=== PATIENT | male | born 1955 | race Caucasian/White ===

== ENCOUNTER 2016-11-07 10:00 | Outpatient (RCR) | payer MEDICARE, OTHER ==
--- OUTSIDE RECORDS SUMMARY | 2016-08-12 10:09 | XMS REPORT | Continuity of Care Document ---
Author Author [facility] Organization [facility] Address Unknown Phone Unavailable Support Name Relationship Address Phone LUISA SYED DO Caregiver [address] [place] [address] MARIBEL GARY Caregiver [facility] [address] [place] [address] MALATHI TAPIA Next Of Kin [address] [place] [address] Insurance Providers Payer Name Policy Number Subscriber Name Relationship Wps Medicare [id number] Óscar Tapia Sr 18 Self / Same As Patient Comm Crossover Enter Ins Name [id number] Óscar Tapia Sr 18 Self / Same As Patient Advance Directives Directive Response Recorded Date/Time Advance Directives No 07/28/14 7:46am Health Care Power of Music Agent No 07/28/14 7:46am Organ Donor Yes 07/28/14 7:46am Resuscitation Status Full Code 07/28/14 7:46am Problems Medical Problems Problem Onset Date Status Bronchitis Unknown Active Medications Medication Dose Route Sig Days/Qty Instructions Order Date Discontinued Date Status Fluticasone Propionate 1 Puff IH DAILY 05/08/12 05/12/12 Discontinued Metformin HCl (Glucophage) 500 Mg PO TWICE A DAY WITH MEALS TAKE 1/2 OF (1,000MG) TAB 05/08/12 Active Fluoxetine Hcl 120 Mg PO DAILY 05/08/12 Active Omeprazole 20 Mg PO DAILY 05/08/12 Active Lisinopril/Hydrochlorothiazide 0.5 Tab PO DAILY 05/08/12 Active Fluticasone Propionate 1 Puff INH TWICE A DAY 05/08/12 05/12/12 Discontinued Budesonide/Formoterol Fumarate 2 Puff IH TWICE A DAY 05/12/12 Active Prednisone 20 Mg PO DIRECTED 20MG TWICE DAILY X2 DAYS, 05/12/1215/10 Discontinued Amoxicillin/Clavulanate Potassium 1 Tab PO TWICE A DAY 05/12/1215/10 Discontinued Tiotropium [place] 1 Inh IH DAILY 06/15/12 Active Temazepam 15 Mg PO BEDTIME PRN 06/15/12 12/10/12 Discontinued Clopidogrel Bisulfate 75 Mg PO DAILY 06/16/12 07/26/14 Discontinued Cilostazol 100 Mg PO TWICE A DAY 06/16/12 07/26/14 Discontinued Metoprolol Tartrate (Lopressor) 12.5 Mg PO TWICE A DAY TAKE 1/2 OF (25MG ) TAB 11/14/12 Active Azithromycin 250 Mg PO DAILY 6 Qty UNTIL GONE 12/10/12 10/07/13 Discontinued Cefuroxime Axetil (Ceftin) 1 Each PO TWICE A DAY 12 Qty 12/10/1210/07 Discontinued Simvastatin 40 Mg PO BEDTIME 10/07/13 Active Omeprazole 20 Mg PO DAILY 10/07/13 07/26/14 Discontinued Aspirin 81 Mg PO DAILY 10/07/13 Active Albuterol Sulfate 2 Puff IH EVERY 6 HOURS PRN SHORTNESS OF BREATH 10/08 Active Tiotropium [place] 2 [place] IH DIRECTED 1 Qty 10/07/13 07/26/14 Discontinued Levofloxacin 1 Each PO DAILY 10 Qty FOR INFECTION 10/07/13 07/26/14 Discontinued Benzonatate 1-2 Each PO Q 4 - 6 HR PRN 30 Qty 10/07/13 07/26/14 Discontinued Fluticasone Propionate 1 Sprays NSEACH TWICE A DAY 07/26/14 Active Potassium Gluconate 99 Mg PO DAILY 07/26/14 Active Docusate Sodium 1 Cap PO TWICE A DAY PRN CONSTIPATION 60 Qty 07/28/14 Active Hydrocodone Bit/Acetaminophen 1 Tab PO EVERY 4HRS PRN PAIN 30 Qty 07/28 Active Social History Social History Problem Response Recorded Date/Time Alcohol Use Denies Use 10/07/2013 6:05pm Recreational Drug Use No 10/07/2013 6:05pm Smoking Status Never a Smoker 07/28/2014 7:47am Query Response Start Date Stop Date Smoking Status Never a Smoker Hospital Discharge Instructions No hospital discharge instructions. Plan of Care No plan of care. Functional Status No functional status results. Allergies, Adverse Reactions, Alerts Allergen Type Severity Reaction Status Last Updated No Known Drug Allergies Active 10/07/13 Immunizations Name Given Type Date of Pneumonia Vaccine 07/28/12 Historical Date of Influenza Vaccine 07/27/12 Historical Vital Signs Acute Vital Signs Vital Response Date/Time Temperature (Fahrenheit) 98.2 degrees F (97.6 - 99.5) Temperature (Calculated Celsius) 36.81127 degrees C (36.4 - 37.5) Temperature Source Temporal Pulse Rate (adult) 79 bpm (60 - 90) Respiratory Rate 18 bpm (12 - 24) O2 Sat by Pulse Oximetry 91 % (88 - 100) Blood Pressure 145/87 mm Hg Pain Pain Intensity 3 Height (Feet) 5 feet Height (Inches) 6.00 inches Height (Calculated Centimeters) 167.515577 cm Weight (Pounds) 178 pounds Weight (Calculated Grams) 28509.443 gm Weight (Calculated Kilograms) 80.571461 kilograms Height 5 ft 6 in Weight 178 lb Body Mass Index 28.7 kg/m^2 Results Test Source Date Result Interp. Ref. Range Comments Activated Partial Thromboplast Time October 07, 2013 6:20pm 27 SEC N 24 -35 Alanine Aminotransferase (ALT/SGPT) October 07, 2013 6:20pm 67 U/L H 30 -65 Albumin October 07, 2013 6:20pm 3.2 G/DL L 3.4-5.0 Alkaline Phosphatase October 07, 2013 6:20pm 93 U/L N 50-136 Hiro Test May 11, 2014 12:30pm YES-POS - Alternaria tenuis Allergen May 11, 2014 11:55am <0.35 KU/L - ALTENARIA TENUI CLASS 0 Amylase Level December 06, 2012 7:54am 16 U/L L 25-115 Anti-Neutrophil Cytoplasmic Ab May 11, 2014 11:55am <1:20 - This test was developed and its performance characteristicsdetermined by [facility]. It has not been cleared or approved by the U.S. Food and Drug Administration. The FDA has determined that such clearance or approval is not necessary. This test is used for clinical puposes. It should not be regarded as investigational or for research. This laboratory is certified under the Clinical Laboratory Improvement Amendments of 1988 (CLIA) as qualified to perform high complexity clinical testing. 11/29/1999 Anti-Nuclear Antibody Screen May 11, 2014 11:55am <1:80 - IF EDIS SCREEN POSITIVE TITER AND PATTERN WILL FOLLOW.Index Value Interpretation <1:20 NORMAL RANGE FOR CHILDREN AGE 0 - 12 years <1:80 NORMAL RANGE FOR ADULTS AGE 13 - 150 years Arterial Blood Base Excess May 11, 2014 12:30pm 1.2 MMOL/L N -2.5-2.5 Arterial Blood HCO3 May 11, 2014 12:30pm 27 MMOL/L N 23-27 Arterial Blood Oxygen Saturation May 11, 2014 12:30pm 96 % N 94-100 Arterial Blood Partial Pressure CO2 May 11, 2014 12:30pm 44 MMHG N 35- 45 Arterial Blood Partial Pressure O2 May 11, 2014 12:30pm 77 MMHG L 79- 93 Arterial Blood Total CO2 May 11, 2014 12:30pm 28.2 MMOL/L N 21.0-31.0 Arterial Blood pH May 11, 2014 12:30pm 7.40 N 7.37-7.43 Aspartate Amino Transf (AST/SGOT) October 07, 2013 6:20pm 36 U/L N 15- 37 B-Type Natriuretic Peptide December 06, 2012 7:54am 12.0 PG/ML N 5.0- 100.0 BUN/Creatinine Ratio May 11, 2014 11:55am 28 - Band Neutrophils May 08, 2012 8:50pm 2 % - Basophils # (Auto) May 11, 2014 11:55am 0.1 10^3/uL N 0.0-0.1 Basophils % (Manual) May 08, 2012 8:50pm 0 % - Basophils (%) (Auto) May 11, 2014 11:55am 1 % N 0-10 [place] Grass Allergen (RAST) May 11, 2014 11:55am <0.35 KU/L - BERMUDA GRASS CLASS 0 Blood Gas Inspired Oxygen May 11, 2014 12:30pm ROOM AIR - Blood Gas Patient Temperature May 11, 2014 12:30pm 97.2 - Blood Gas Puncture Site May 11, 2014 12:30pm RT RAD - Blood Gas Ventilator Setting May 11, 2014 12:30pm NO - Blood Urea Nitrogen May 11, 2014 11:55am 22 MG/DL H 7-18 C-Reactive Protein May 11, 2012 5:27am 1.5 MG/DL H 0.2-0.9 Calcium Level May 11, 2014 11:55am 9.1 MG/DL N 8.5-10.1 Carbon Dioxide Level May 11, 2014 11:55am 28 MMOL/L N 21-32 Chloride Level May 11, 2014 11:55am 104 MMOL/L N 101-110 Cholesterol Level November 13, 2012 6:33am 93 MG/DL N -200 Common Ragweed (Short) Allergen May 11, 2014 11:55am <0.35 KU/L - RAGWEED COMMON CLASS 0 Creatine Kinase MB December 06, 2012 7:54am 7.6 NG/ML PH 0.0-3.6 RESULTS CALLED TO MARINA AT 0836. RESULTS READ BACK:YES. Creatinine May 11, 2014 11:55am 0.8 MG/DL N 0.6-1.3 D-Dimer December 06, 2012 7:54am 0.97 UG/ML H 0.00-0.49 Dermatophagoides farinae Allergen May 11, 2014 11:55am <0.35 KU/L - D. FARINAE CLASS 0 Dog Dander Allergen (RAST) May 11, 2014 11:55am <0.35 KU/L - DOG DANDER CLASS 0 [place] Tree Allergen (RAST) May 11, 2014 11:55am <0.35 KU/L - [place] TREE CLASS 0 Eosinophils # (Auto) May 11, 2014 11:55am 0.4 10^3/uL H 0.0-0.3 Eosinophils % (Manual) May 08, 2012 8:50pm 3 % - Eosinophils (%) (Auto) May 11, 2014 11:55am 6 % N 0-10 Erythrocyte Sedimentation Rate May 11, 2014 11:55am 3 MM/HR N 0-30 Glucose Level May 11, 2014 11:55am 118 MG/DL H 74-106 HDL Cholesterol November 13, 2012 6:33am 31 MG/DL L 35-60 Hematocrit May 11, 2014 11:55am 44 % N 40-54 Hemoglobin May 11, 2014 11:55am 15.3 G/DL N 13.3-17.7 Hemoglobin A1c May 10, 2012 6:40am 7.1 % H 4.5-6.2 Comments to Trap Setter: ADD TO BLOOD IN LAB ALREADY Immunoglobulin E May 11, 2014 11:55am 96.3 IU/ML - IGE INTERPRETATION GEOMETRIC MEAN +1 SD +2 SD 51-80 YEARS 12 IU/ML 48 IU/ML 197 IU/ML IT HAS BEEN REPORTED THAT 1% OF HEALTHY ADULTS AND 63% OF ALLERGIC ADULTS HAVE TOTAL CIRCULATING IGE LEVELS GREATER THAN 100 IU/ML AND THAT 65% OF HEALTHY ADULTS AND ONLY 2% OF ALLERGIC ADULTS HAVE TOTAL CIRCULATING IGE LEVELS BELOW 20 IU/ML. ALSO REPORTED IS THAT PATIENTS WITH IGE LEVELS GREATER THAN ONE STANDARD DEVIATION ABOVE THE GEOMETRIC MEAN HAVE A HIGH PROBABILITY OF ALLERGIC DISAESE AND IGE LEVELS GREATER THAN TWO STANDARD DEVIATIONS ABOVE THE GEOMETRIC MEAN ARE VIRTUALLY DIAGNOSTIC FOR ATOPY (CLIN REV ALLERGY 6: 93, 1988). Danny Grass Allergen (RAST) May 11, 2014 11:55am <0.35 KU/L - DANNY GRASS CLASS 0 [place] Blue (Zulema) Grass Allergen May 11, 2014 11:55am <0.35 KU/L - MONA BLUE GRASS CLASS 0 LDL Cholesterol November 13, 2012 6:33am 37 MG/DL N 0-129 Lipase December 06, 2012 7:54am 107 U/L N 73-393 Lymphocytes # (Auto) May 11, 2014 11:55am 2.5 X 10^3 N 1.0-4.0 Lymphocytes % (Manual) May 08, 2012 8:50pm 17 % - Lymphocytes (%) (Auto) May 11, 2014 11:55am 37 % N 12-44 Magnesium Level December 07, 2012 5:52am 1.5 MG/DL L 1.8-2.4 Asencio Elder (Rough) Allergen May 11, 2014 11:55am <0.35 KU/L - MARSHELDER CLASS 0 Mean Corpuscular Hemoglobin May 11, 2014 11:55am 30 PG N 25-34 Mean Corpuscular Hemoglobin Concent May 11, 2014 11:55am 35 G/DL N 32- 36 Mean Corpuscular Volume May 11, 2014 11:55am 86 FL N 80-99 Mean Platelet Volume May 11, 2014 11:55am 9.3 FL N 7.4-10.4 Monocytes # (Auto) May 11, 2014 11:55am 1.1 X 10^3 H 0.0-1.0 Monocytes % (Manual) May 08, 2012 8:50pm 6 % - Monocytes (%) (Auto) May 11, 2014 11:55am 16 % H 0-12 Myoglobin November 12, 2012 6:42pm 268 UG/L H 10-92 Neutrophils # (Auto) May 11, 2014 11:55am 2.8 X 10^3 N 1.8-7.8 Neutrophils % (Manual) May 08, 2012 8:50pm 72 % - Neutrophils (%) (Auto) May 11, 2014 11:55am 41 % L 42-75 Pecan Tree Allergen May 11, 2014 11:55am <0.35 KU/L - PECAN TREE CLASS 0 Platelet Count May 11, 2014 11:55am 150 10^3/uL N 130-400 Potassium Level May 11, 2014 11:55am 4.3 MMOL/L N 3.6-5.0 Prothromb Time International Ratio December 06, 2012 7:54am 1.1 N 0.8- 1.4 INTERPRETIVE DATASUGGESTED THERAPEUTIC RANGE FOR INR'S : VENOUS THROMBOSIS, PULMONARY EMBOLISM, OR PREVENTION OF SYSTEMIC EMBOLISM (EG. IN ATRIAL FIBRILLATION): 2.0 - 3.0 MECHANICAL PROSTHETIC HEART VALVES: 2.5 - 3.5* *NOTE: INR'S UP TO 4.5 MAY BE NECESSARY IN SELECTED GROUPS OF HIGH RISK PATIENTS. [employer] CONSENSUS CONFERENCE ON ANTITHROMBOTIC THERAPY (2000). Prothrombin Time October 07, 2013 6:20pm 13.4 SEC N 12.2-14.7 Red Blood Count May 11, 2014 11:55am 5.11 10^6/uL N 4.35-5.85 Red Cell Distribution Width May 11, 2014 11:55am 14.1 % N 10.0-14.5 Rheumatoid Factor May 11, 2014 11:55am NEGATIVE - Sodium Level May 11, 2014 11:55am 140 MMOL/L N 135-145 Total Bilirubin October 07, 2013 6:20pm 0.3 MG/DL N 0.0-1.0 Total Creatine Kinase May 08, 2012 8:50pm 216 U/L H 1-205 Total Protein October 07, 2013 6:20pm 7.1 G/DL N 6.4-8.2 Triglycerides Level November 13, 2012 6:33am 123 MG/DL N 30.0-150.0 Troponin I December 06, 2012 7:48pm < 0.10 NG/ML 0.00-0.10 Urine Bacteria May 08, 2012 8:40pm NEGATIVE - Has specimen been collected/obtained? YSpecimen Description CLEAN CATCH Urine Bilirubin May 08, 2012 8:40pm NEGATIVE - Has specimen been collected/obtained? YSpecimen Description CLEAN CATCH Urine Casts May 08, 2012 8:40pm NONE - Has specimen been collected/ obtained? YSpecimen Description CLEAN CATCH Urine Clarity May 08, 2012 8:40pm CLEAR - Has specimen been collected/obtained? YSpecimen Description CLEAN CATCH Urine Color May 08, 2012 8:40pm YELLOW - Has specimen been collected /obtained? YSpecimen Description CLEAN CATCH Urine Crystals May 08, 2012 8:40pm NONE - Has specimen been collected/obtained? YSpecimen Description CLEAN CATCH Urine Culture Indicated May 08, 2012 8:40pm NO - Has specimen been collected/obtained? YSpecimen Description CLEAN CATCH Urine Glucose (UA) May 08, 2012 8:40pm NEGATIVE - Has specimen been collected/obtained? YSpecimen Description CLEAN CATCH Urine Ketones May 08, 2012 8:40pm NEGATIVE - Has specimen been collected/obtained? YSpecimen Description CLEAN CATCH Urine Leukocyte Esterase May 08, 2012 8:40pm NEGATIVE - Has specimen been collected/obtained? YSpecimen Description CLEAN CATCH Urine Mucus May 08, 2012 8:40pm NEGATIVE - Has specimen been collected/obtained? YSpecimen Description CLEAN CATCH Urine Nitrite May 08, 2012 8:40pm NEGATIVE - Has specimen been collected/obtained? YSpecimen Description CLEAN CATCH Urine Protein May 08, 2012 8:40pm NEGATIVE - Has specimen been collected/obtained? YSpecimen Description CLEAN CATCH Urine RBC May 08, 2012 8:40pm NONE /HPF - Has specimen been collected/obtained? YSpecimen Description CLEAN CATCH Urine Specific [place] May 08, 2012 8:40pm 1.010 L - Has specimen been collected/obtained? YSpecimen Description CLEAN CATCH Urine Urobilinogen May 08, 2012 8:40pm NORMAL MG/DL - Has specimen been collected/obtained? YSpecimen Description CLEAN CATCH Urine WBC May 08, 2012 8:40pm RARE /HPF - Has specimen been collected/obtained? YSpecimen Description CLEAN CATCH Urine pH May 08, 2012 8:40pm 6.0 - Has specimen been collected/ obtained? YSpecimen Description CLEAN CATCH VLDL Cholesterol November 13, 2012 6:33am 25 MG/DL N 5-40 White Blood Count May 11, 2014 11:55am 6.8 10^3/uL N 4.3-11.0 [place] Allergen May 11, 2014 11:55am <0.35 KU/L - [place] WHITE CLASS 0 Pro-B-Type Natriuretic Peptide May 11, 2014 11:55am 30.7 PG/ML N -125 Glucometer December 10, 2012 10:58am 179 MG/DL H 70-110 Lab Scanned Report December 06, 2012 9:30am LAB Reports [id number] - Estimat Glomerular Filtration Rate May 11, 2014 11:55am > 60 - GFR INTERPRETIVE DATA UNITS FOR ESTIMATED GFR (eGFR): mL/min/1.73 M2 REFERENCE RANGE FOR ESTIMATED GFR (eGFR) eGFR NORMAL eGFR >60 MODERATELY DECREASED eGFR 30-59 SEVERLY DECREASED eGFR 15-29 KIDNEY FAILURE <15 (OR DIALYSIS) Cladosporium herbarum Allergen May 11, 2014 11:55am <0.35 KU/L - CLADOSPORIM MLD CLASS 0NOTE: THE SPECIFIC IGE RESULTS FROM THESE PANELS, PARTICULARLY THE GENERAL [place] SCREEN, ARE DESIGNED TO ASSIST IN THE DIFFERENTIAL DIAGNOSIS OF PATIENTS WITH OVERLAPPING UPPER RESPIRATORY DISEASE (URD) SYMPTOMS TO THE PRESENCE OR ABSENCE OF ATOPIC DISEASE. [facility] Immunocap Allergen-Specific Allergy Interpretation Class IgE Index Value kU/L Interpretation ----- 0 <0.35 Negative 1 0.35 - 0.70 Low positive 2 0.71 - 3.49 Moderate positive 3 3.50 - 17.49 High positive 4 17.50 - 49.99 Very high positive 5 50.00 - 99.99 Very high positive 6 >100.00 Very high positive The test method is the [employer] Immunocap Allergen-Specific IgE System. Testing performed at: [facility], [address] [place], [place] 11/27/2002 Blood Morphology Comment May 08, 2012 8:50pm NORMAL - Creatine Kinase December 06, 2012 7:48pm 286 U/L H 1-205 Cardiac Panel Pathologist Review December 06, 2012 7:54am SEE CARDIAC PATH REV - Urine RBC (Auto) May 08, 2012 8:40pm NEGATIVE - Has specimen been collected/obtained? YSpecimen Description CLEAN CATCH Cat Dander Allergen May 11, 2014 11:55am <0.35 KU/L - CAT DANDER CLASS 0 INR Comment October 07, 2013 6:20pm 1.0 N 0.8-1.4 INTERPRETIVE DATASUGGESTED THERAPEUTIC RANGE FOR INR'S: VENOUS THROMBOSIS, PULMONARY EMBOLISM, OR PREVENTION OF SYSTEMIC EMBOLISM (EG. IN ATRIAL FIBRILLATION): 2.0 - 3.0 MECHANICAL PROSTHETIC HEART VALVES: 2.5 - 3.5* *NOTE: INR'S UP TO 4.5 MAY BE NECESSARY IN SELECTED GROUPS OF HIGH RISK PATIENTS. [employer] CONSENSUS CONFERENCE ON ANTITHROMBOTIC THERAPY (2000). Blood Culture Peripheral-Lt Ac December 06, 2012 9:25am No growth Influenza Types A,B Antigen (VICENTE) Nasopharynx October 07, 2013 6:56pm Procedures Procedure Status Date Provider(s) Laparoscopic cholecystectomy completed 07/28/14 LUISA SYED DO Laparoscopic repair of ventral hernia completed 07/28/14 LUISA SYED DO Tracing only of electrocardiogram completed 07/26/14 YASEMIN ALLAN ADAPTIVE PHYSICAL EDUCATOR Encounters Encounter Location Date/Time Registered Clinic Via [facility] 07/26/14 7:28am Registered Clinic [facility] 07/12/14 8:18am Registered Clinic [facility] 07/06/14 7:55pm
[~2016-11-07 10:00] MED LIST: AGM875T PO; ALBU2.5V4 IH; ALLO300T2 PO; APIX5TAB PO; ASP81CT PO; ATOR40TA PO; ATOR40TA70 PO; AZIT500T PO; BENZ100C18 PO; BUDE10.2 IH; BUDE6HFA IH; CEFD300C3 PO; CEFU500T5 PO; CLOP75TA PO; CYCL5TAB PO; DCS100C PO; DICL100G18 TP; DULA0.75 SQ; FENO145T2 PO; FLT05NA16 NSEACH; FLT4413 INH; FLUO20CA25 PO; FLUO60TA PO; FLUT16SP22 NS; FLUT1BLS IH; FLUT50DI IH; GABA-488 PO; GLIM4TAB PO; HYDR-3454 PO; INDO25CA PO; LEVO500T69 PO; LEVO750T39 PO; LEVO750T9 PO; LISI1TAB PO; LISI1TAB6 PO; MAGN400T6 PO; METF-380 PO; METF1000 PO; METO-270 PO; METO25TA2 PO; MONT10TA24 PO; NF-PLET100 PO; OMEP-10 PO; OMEP20CA12 PO; OMEP20TA2 PO; OMG1KC PO; POTA99TA15 PO; POTA99TA21 PO; PRD20T PO; ROSU10TA PO; RT-ALBUINH IH; SIMV40TA4 PO; TEMA15CA54 PO; TIOT18CA IH; TRAM50TA2 PO; UMEC62.5 IH
== END 2016-11-10 | disposition home or self-care (01) ==
LOC: PULM 10:00
PROVIDERS: ATTEND Nurse Practitioner Family
DX: R06.02 Shortness of breath (principal); J84.9 Interstitial pulmonary disease, unspecified; R91.1 Solitary pulmonary nodule; G47.33 Obstructive sleep apnea (adult) (pediatric)
CPT/HCPCS: 99211

== ENCOUNTER 2016-12-05 10:00 | Outpatient (RCR) | payer MEDICARE, OTHER ==
--- OUTSIDE RECORDS SUMMARY | 2016-11-14 10:35 | XMS REPORT | Continuity of Care Document ---
Author Author [facility] Organization [facility] Address Unknown Phone Unavailable Support Name Relationship Address Phone LUISA SYED DO Caregiver [address] [place] [address] MARIBEL GARY Caregiver [facility] [address] [place] [address] MALATHI TAPIA Next Of Kin [address] [place] [address] Insurance Providers Payer Name Policy Number Subscriber Name Relationship Wps Medicare [id number] Óscar Tapia Sr 18 Self / Same As Patient Comm Crossover Enter Ins Name [id number] Óscar Tapia Sr 18 Self / Same As Patient Advance Directives Directive Response Recorded Date/Time Advance Directives No 07/28/14 7:46am Health Care Power of Skin Specialist No 07/28/14 7:46am Organ Donor Yes 07/28/14 [...] PO TWICE A DAY 05/12/1215/10 Discontinued Tiotropium [place] 1 Inh IH DAILY 06/15/12 Active Temazepam [...] PRN SHORTNESS OF BREATH 10/08 Active Tiotropium [place] 2 [place] IH DIRECTED 1 Qty 10/07/13 07/26/14 Discontinued [...] F (97.6 - 99.5) Temperature (Calculated Celsius) 36.88911 degrees C (36.4 - 37.5) Temperature Source Temporal Pulse Rate (adult) 79 bpm (60 - 90) Respiratory Rate 18 bpm (12 - 24) O2 Sat by Pulse Oximetry 91 % (88 - 100) Blood Pressure 145/87 mm Hg Pain Pain Intensity 3 Height (Feet) 5 feet Height (Inches) 6.00 inches Height (Calculated Centimeters) 167.701571 cm Weight (Pounds) 178 pounds Weight (Calculated Grams) 38613.443 gm Weight (Calculated Kilograms) 80.115150 kilograms Height 5 ft 6 in Weight [...] 07, 2013 6:20pm 93 U/L N 50-136 Hior Test May 11, 2014 12:30pm YES-POS - Alternaria tenuis Allergen May 11, 2014 11:55am <0.35 KU/L - ALTENARIA TENUI CLASS 0 Amylase Level December 06, 2012 7:54am 16 U/L L 25-115 Anti-Neutrophil Cytoplasmic Ab May 11, 2014 11:55am <1:20 - This test was developed and its performance characteristicsdetermined by [facility]. It has not been cleared or approved [...] 6:40am 7.1 % H 4.5-6.2 Comments to Feed Research Aide: ADD TO BLOOD IN LAB ALREADY Immunoglobulin [...] SELECTED GROUPS OF HIGH RISK PATIENTS. [employer] CONSENSUS CONFERENCE ON [...] collected/obtained? YSpecimen Description CLEAN CATCH Urine Specific [place] May 08, 2012 8:40pm 1.010 L - [...] 11, 2014 11:55am 6.8 10^3/uL N 4.3-11.0 [place] Tree Allergen May 11, 2014 11:55am <0.35 KU/L - [place] WHITE CLASS 0 Pro-B-Type Natriuretic Peptide May 11, 2014 11:55am 30.7 PG/ML N -125 Glucometer December 10, 2012 10:58am 179 MG/DL H 70-110 Lab Scanned Report December 06, 2012 9:30am LAB Reports [id number] - Estimat Glomerular Filtration Rate May 11, [...] THE PRESENCE OR ABSENCE OF ATOPIC DISEASE. [facility] Immunocap Allergen-Specific Allergy Interpretation Class IgE Index Value kU/L Interpretation ----- 0 <0.35 Negative 1 0.35 - 0.70 Low positive 2 0.71 - 3.49 Moderate positive 3 3.50 - 17.49 High positive 4 17.50 - 49.99 Very high positive 5 50.00 - 99.99 Very high positive 6 >100.00 Very high positive The test method is the [email or web address] Immunocap Allergen-Specific IgE System. Testing performed at: [facility], [address] [place], [place] 11/27/2002 Blood Morphology Comment May 08, [...] SELECTED GROUPS OF HIGH RISK PATIENTS. [employer] CONSENSUS CONFERENCE ON ANTITHROMBOTIC THERAPY (2000). Blood Culture Peripheral-Lt Ac December 06, 2012 9:25am No growth Influenza Types A,B Antigen (VICENTE) Nasopharynx October 07, 2013 6:56pm Procedures Procedure Status Date Provider(s) Laparoscopic cholecystectomy completed 07/28/14 LUISA SYED DO Laparoscopic repair of ventral hernia completed 07/28/14 LUISA SYED DO Tracing only of electrocardiogram completed 07/26/14 YASEMIN ALLAN INSPECTOR FILTER TIP Encounters Encounter Location Date/Time Registered Clinic [facility] 07/26/14 7:28am Registered Clinic [facility] 07/12/14 8:18am Registered Clinic [facility] 07/06/14 7:55pm
== END 2017-02-12 | disposition home or self-care (01) ==
LOC: PULM 10:00
PROVIDERS: ATTEND Nurse Practitioner Family
DX: R06.02 Shortness of breath (principal); J84.9 Interstitial pulmonary disease, unspecified; R91.1 Solitary pulmonary nodule; G47.33 Obstructive sleep apnea (adult) (pediatric)

== ENCOUNTER 2017-03-09 12:57 | Inpatient (IN) | payer MEDICARE ==
[~2017-03-09] VITALS: Ht 167.6 cm; Wt 79.9 kg
--- NOTE | 2017-03-09 13:29 | ED Chest Pain ---
General Chief Complaint: Chest Pain Stated Complaint: SOB/CHEST HEAVINESS/COUGH Source: patient Exam Limitations: no limitations History of Present Illness Time seen by provider: 13:27 Initial Comments To ER with chest heaviness and a cough. The cough is productive in nature and started about 7 days ago. On the second day of this illness he saw [facility] in [place] and got a prescription for antibiotic (doxycycline) and steroid. He reports that he felt a little bit better for one day and then seemed to get worse again. A little bit more short of breath than usual though he is always slightly short of breath from COPD. He does not wear oxygen at home. Starting 3 days ago he's had heaviness in the center of his chest that is been constant and present at all times. He also has atrial fibrillation and is on Eliquis Timing/Duration: constant Severity/Quality: moderate Radiation: no radiation ASA po [employer]: No NTG SL [employer]: No Allergies and Home Medications Allergies Coded Allergies: atorvastatin (Verified Allergy, Mild, 01/12/16) Patient states that his bones ached and he wasn't able to tolerate it. Home Medications Albuterol Sulfate 2.5 Mg/3 Ml Vial.neb, 2.5 MG IH Q4H PRN for SHORTNESS OF BREATH, (Reported) Allopurinol 300 Mg Tablet, 300 MG PO BID, (Reported) Apixaban 5 Mg Tablet, 5 MG PO BID, (Reported) Aspirin 81 Mg Chew, 81 MG PO HS, (Reported) Budesonide/Formoterol Fumarate 10.2 Gm Hfa.aer.ad, 2 PUFF IH DAILY, (Reported) Diclofenac Sodium 100 Gm Gel..gram., TP QID PRN for PAIN, (Reported) Dulaglutide 0.75 Mg/0.5 Ml Pen.injctr, 0.75 MG SQ Tu, (Reported) Fenofibrate Nanocrystallized 145 Mg Tablet, 145 MG PO HS, (Reported) Fluoxetine HCl 20 Mg Capsule, 40 MG PO DAILY, (Reported) TAKES 2 (20MG) CAPSULES Fluticasone Propionate 16 Gm [place].susp, 1 SPRAY NS BID PRN for CONGESTION, ( Reported) Gabapentin 300 Mg Capsule, 300 MG PO HS, (Reported) Glimepiride 4 Mg Tablet, 4 MG PO DAILY, (Reported) Lisinopril/Hydrochlorothiazide 1 Each Tablet, 1 TAB PO HS, (Reported) Metformin HCl 1,000 Mg Tablet, 1,000 MG PO BID, (Reported) Metoprolol Succinate 25 Mg Tab.er.24h, 25 MG PO HS, (Reported) Montelukast Sodium 10 Mg Tablet, 10 MG PO HS, (Reported) [place] 3 Polyunsat Fatty Acids 1,000 Mg Cap, 1,000 MG PO BID, (Reported) Omeprazole 20 Mg Capsule.dr, 20 MG PO DAILY, (Reported) Potassium Gluconate 99 Mg Tablet, 99 MG PO DAILY, (Reported) Rosuvastatin Calcium 10 Mg Tablet, 10 MG PO HS, (Reported) Umeclidinium [place] 62.5 Mcg Blst.w.dev, 1 PUFF IH HS, (Reported) Review of Systems Constitutional: see HPI, No chills, No fever, malaise, weakness EENTM: See HPI Respiratory: See HPI, Cough Cardiovascular: See HPI, Chest Pain Gastrointestinal: No Symptoms Reported Genitourinary: No Symptoms Reported Musculoskeletal: no symptoms reported Skin: no symptoms reported Psychiatric/Neurological: No Symptoms Reported Endocrine: No Symptoms Reported Hematologic/Lymphatic: No Symptoms Reported Past Vzklbzh-Mwzceb-Jopnqk Hx Patient Social History 2nd Hand Smoke Exposure: Yes Recent Foreign Travel: No Contact w/Someone Who Travel: No Immunizations Up To Date Tetanus Booster (TDap): Unknown PED Vaccines UTD: No Date of Pneumonia Vaccine: Jul 28, 2012 Date of Influenza Vaccine: Jul 30, 2016 Seasonal Allergies Seasonal Allergies: No Surgeries HX Surgeries: Yes Surgeries: Abdominal, Appendectomy, Cardiac, Coronary Stent, Eye Surgery, Renal Respiratory Hx Respiratory Disorders: Yes ("pigeon's disease") Respiratory Disorders: Sleep Apnea Cardiovascular Hx Cardiac Disorders: Yes Cardiac Disorders: Coronary Artery Disease, High Cholesterol, Hypertension Neurological Hx Neurological Disorders: No Reproductive System Hx Reproductive Disorders: No Sexually Transmitted Disease: No HIV/AIDS: No Genitourinary Hx Genitourinary Disorders: No Genitourinary Disorders: Kidney Stones Gastrointestinal Hx Gastrointestinal Disorders: Yes Gastrointestinal Disorders: Gastroesophageal Reflux, Polyps Musculoskeletal Hx Musculoskeletal Disorders: Yes Musculoskeletal Disorders: Degenerate Disk Disease, Arthritis, Chronic Back Pain, Gout Endocrine Hx Endocrine Disorders: Yes Endocrine Disorders: Diabetes, Non-Insulin dep HEENT HX ENT Disorders: No Loss of Vision: Denies Cancer Hx Cancer: No Psychosocial Hx Psychiatric Problems: Yes Behavioral Health Disorders: Anxiety, Depression Integumentary HX Skin/Integumentary Disorder: No Blood Transfusions Hx Blood Disorders: No Adverse Reaction to a Blood Tr: No Family Medical History Significant Family History: Lung Disease Family Medial History: Arthritis 19 FATHER Respiratory disorder 19 FATHER 19 MOTHER Thyroid disease 19 MOTHER No Family History of: AIDS Abdominal aortic aneurysm Alcoholism Alzheimer's disease Asthma Cardiovascular disease Dementia Diabetes mellitus Drug abuse Hypertension Kidney disease Myocardial infarction Parkinson's disease Psychosocial problem Seizure disorder Physical Exam Vital Signs Vital Sign - Last 12Hours 03/09/17 03/09/17 13:25 13:26 Temp 100.6 Pulse 110 Resp 18 B/P (MAP) 129/92 Pulse Ox 95 O2 Delivery Room Air Capillary Refill : Less Than 3 Seconds General Appearance: No Apparent Distress, WD/WN HEENT: PERRL/EOMI, TMs Normal Neck: Full Range of Motion, Normal Inspection Respiratory: Lungs Clear, Normal Breath Sounds, No Accessory Muscle Use, No Respiratory Distress Cardiovascular: Normal Peripheral Pulses, Tachycardia Gastrointestinal: Non Tender, Soft Extremity: Normal Capillary Refill, Normal Inspection Neurologic/Psychiatric: Alert, Oriented x3, No Motor/Sensory Deficits Skin: Normal Color, Warm/Dry Focused Exam Lactic Acid Level Laboratory Tests Test 03/09/17 13:20 Lactic Acid Level 1.77 MMOL/L (0.50-2.00) Progress/Results/Core Measures Results/Orders Lab Results Laboratory Tests Test 03/09/17 13:20 03/09/17 14:04 Range/Units White Blood Count 17.0 H 4.3-11.0 10^3/uL Red Blood Count 4.61 4.35-5.85 10^6/uL Hemoglobin 13.7 13.3-17.7 G/DL Hematocrit 42 40-54 % Mean Corpuscular Volume 91 80-99 FL Mean Corpuscular Hemoglobin 30 25-34 PG Mean Corpuscular Hemoglobin Concent 33 32-36 G/DL Red Cell Distribution Width 14.0 10.0-14.5 % Platelet Count 301 130-400 10^3/uL Mean Platelet Volume 9.7 7.4-10.4 FL Neutrophils (%) (Auto) 79 H 42-75 % Lymphocytes (%) (Auto) 12 12-44 % Monocytes (%) (Auto) 7 0-12 % Eosinophils (%) (Auto) 2 0-10 % Basophils (%) (Auto) 1 0-10 % Neutrophils # (Auto) 13.5 H 1.8-7.8 X 10^3 Lymphocytes # (Auto) 2.0 1.0-4.0 X 10^3 Monocytes # (Auto) 1.2 H 0.0-1.0 X 10^3 Eosinophils # (Auto) 0.3 0.0-0.3 10^3/uL Basophils # (Auto) 0.1 0.0-0.1 10^3/uL Neutrophils % (Manual) 78 % Lymphocytes % (Manual) 13 % Monocytes % (Manual) 9 % Eosinophils % (Manual) 0 % Basophils % (Manual) 0 % Band Neutrophils 0 % Blood Morphology Comment NORMAL Prothrombin Time 17.1 H 12.2-14.7 SEC INR Comment 1.4 0.8-1.4 Activated Partial Thromboplast Time 35 24-35 SEC Lactic Acid Level 1.77 0.50-2.00 MMOL/L B-Type Natriuretic Peptide < 10.0 <100.0 PG/ML Sodium Level 135 135-145 MMOL/L Potassium Level 3.4 L 3.6-5.0 MMOL/L Chloride Level 101 98-107 MMOL/L Carbon Dioxide Level 22 21-32 MMOL/L Anion Gap 12 5-14 MMOL/L Blood Urea Nitrogen 19 H 7-18 MG/DL Creatinine 0.68 0.60-1.30 MG/DL Estimat Glomerular Filtration Rate > 60 BUN/Creatinine Ratio 28 Glucose Level 144 H 70-105 MG/DL Calcium Level 9.8 8.5-10.1 MG/DL Magnesium Level 1.3 L 1.8-2.4 MG/DL Total Bilirubin 0.5 0.1-1.0 MG/DL Aspartate Amino Transf (AST/SGOT) 22 5-34 U/L Alanine Aminotransferase (ALT/SGPT) 35 0-55 U/L Alkaline Phosphatase 55 40-136 U/L Myoglobin 329.3 H 10.0-92.0 NG/ML Troponin I < 0.30 <0.30 NG/ML Total Protein 6.9 6.4-8.2 G/DL Albumin 3.6 3.2-4.5 G/DL My Orders Orders - AMELIE WEEKS APRN Cbc With Automated Diff (03/09/17 13:17) Magnesium (03/09/17 13:17) Ekg Tracing (03/09/17 13:17) Cardiac Profile 1 (03/09/17 13:17) Comprehensive Metabolic Panel (03/09/17 13:17) Myoglobin Serum (03/09/17 13:17) Protime With Inr (03/09/17 13:17) Partial Thromboplastin Time (03/09/17 13:17) O2 (03/09/17 13:17) Monitor-Rhythm Ecg Trace Only (03/09/17 13:17) Lipid Panel (03/10/17 06:00) Aspirin Chewable Tablet (Baby Aspirin Ch (03/09/17 13:30) Saline Lock/Iv-Start (03/09/17 13:17) BNP (03/09/17 13:17) Chest Pa/Lat (2 View) (03/09/17 13:30) Metoprolol Tartrate (Ir) Tab (Lopressor (03/09/17 13:30) Manual Differential (03/09/17 13:20) Blood Culture (03/09/17 13:42) Lactic Acid Analyzer (03/09/17 13:42) Piperacillin Sodium/Tazobactam (Zosyn Vi (03/09/17 13:45) Ct Chest W (03/09/17 13:54) Iohexol Injection (Omnipaque 350 Mg/Ml 1 (03/09/17 15:00) Ns (Ivpb) (Sodium Chloride 0.9% Ivpb Bag (03/09/17 15:00) Medications Given in ED Current Medications Medications Dose Ordered Sig/Shabana Route Start Time Stop Time Status Last Admin Dose Admin Aspirin 324 mg ONCE ONCE PO 03/09/17 13:30 03/09/17 13:31 DC 03/09/17 13:34 324 MG Iohexol 100 ml ONCE ONCE IV 03/09/17 15:00 03/09/17 15:01 DC 03/09/17 15:01 75 ML Metoprolol Tartrate 25 mg ONCE ONCE PO 03/09/17 13:30 03/09/17 13:31 DC 03/09/17 13:34 25 MG Piperacillin Sod/ Tazobactam Sod 4.5 gm/Sodium Chloride 100 ml @ 200 mls/hr ONCE ONCE IV 03/09/17 13:45 03/09/17 14:15 DC 03/09/17 14:32 200 MLS/HR Sodium Chloride 100 ml ONCE ONCE IV 03/09/17 15:00 03/09/17 15:01 DC 03/09/17 15:01 80 ML Vital Signs/I&O Vital Sign - Last 12Hours 03/09/17 03/09/17 03/09/17 03/09/17 13:25 13:26 13:26 13:34 Temp 100.6 100.6 Pulse 110 Resp 18 B/P (MAP) 129/92 Pulse Ox 95 95 O2 Delivery Room Air Room Air Room Air 03/09/17 15:14 Temp 98.6 Pulse 86 Resp 16 B/P (MAP) 124/74 Pulse Ox 91 O2 Delivery Room Air Diagnostic Imaging Diagonstic Imaging: Xray Plain Films/CT/US/NM/MRI: chest Comments NAME: [facility] REC#: [id number] PT STATUS: REG ER : 1955 PHYSICIAN: AMELIE WEEKS APRN ADMIT DATE: 03/09/17/ER Signed Date of Exam:03/09/17 CHEST PA/LAT (2 VIEW) Indication: Chest pain PA and lateral chest Comparison study from 02/09/2016 There are central interstitial fibrosis in both lungs appear similar to the prior exam. There are no consolidating alveolar infiltrates. There are no effusions or pneumothoraces. Heart size and pulmonary vascularity are normal. Impression: Scarring in the lungs. No acute abnormalities or changes since 02/09/2016. Dictated by: Dictated on workstation # [id number] Dict: 03/09/17 1347 Trans: 03/09/17 1348 [id number] Interpreted by: THEODORE DALEY Electronically signed by: THEODORE DALEY 03/09/17 1348 Departure Impression Impression: Primary Impression: Pneumonia Disposition: ADMITTED INPATIENT Condition: Stable Decision to Admit Reason: Admit from ER (General) Decision to Admit/Date: March 09, 2017 Departure-Patient Inst. Decision time for Depature: 15:28 Referrals: ANTONIO GONZALEZ DO (PCP) Primary Care Physician MARIBEL GARY (Family) Primary Care Physician AMELIE WEEKS APRN March 09, 2017 13:29
[2017-03-09] MEDS ORDERED: ASPIRIN 81 MG CHEW (CHILDREN'S ASA) PO ONE (13:30)
[2017-03-09] MEDS ORDERED: meTOprolol TARTRATE 25 MG (LOPRESSOR) TABLET PO ONE (13:30)
[2017-03-09 13:38] LABS: BASOPHILS # (AUTO) 0.1 10^3/uL (0.0-0.1); BASOPHILS % (AUTO) 1 % (0-10); EOSINOPHILS # (AUTO) 0.3 10^3/uL (0.0-0.3); EOSINOPHILS % (AUTO) 2 % (0-10); LYMPHOCYTES % (AUTO) 12 % (12-44); MEAN CORPUSCULAR HEMOGLOBIN 30 PG (25-34); MEAN CORPUSCULAR HGB CONC 33 G/DL (32-36); MEAN CORPUSCULAR VOLUME 91 FL (80-99); MEAN PLATELET VOLUME 9.7 FL (7.4-10.4); MONOCYTES # (AUTO) 1.2 X 10^3 (0.0-1.0); MONOCYTES % (AUTO) 7 % (0-12); NEUTROPHILS # (AUTO) 13.5 X 10^3 (1.8-7.8); NEUTROPHILS % (AUTO) 79 % (42-75); PLATELET COUNT 301 10^3/uL (130-400); RED BLOOD COUNT 4.61 10^6/uL (4.35-5.85)
[2017-03-09] MEDS ORDERED: PIPERACILLIN SODIUM/TAZOBACTAM 4.5 GM in NS (IVPB) 100 ML IV ONE (13:45)
[2017-03-09 13:49] LABS: INR 1.4 (0.8-1.4); PROTHROMBIN TIME PATIENT 17.1 SEC (12.2-14.7)
--- NOTE | 2017-03-09 13:51 | Diagnostic Imaging Report ---
Indication: Chest pain PA and lateral chest Comparison study from 02/09/2016 There are central interstitial fibrosis in both lungs appear similar to the prior exam. There are no consolidating alveolar infiltrates. There are no effusions or pneumothoraces. Heart size and pulmonary vascularity are normal. Impression: Scarring in the lungs. No acute abnormalities or changes since 02/09/2016. Dictated by: Dictated on workstation # [id number]
[2017-03-09 13:58] LABS: BAND NEUTROPHILS 0 %; BASOPHILS % (MANUAL) 0 %; EOSINOPHILS % (MANUAL) 0 %; LYMPHOCYTES % (MANUAL) 13 %; NEUTROPHILS % (MANUAL) 78 %
[2017-03-09 14:44] LABS: ALANINE AMINOTRANSFERASE 35 U/L (0-55); ALBUMIN 3.6 G/DL (3.2-4.5); ANION GAP 12 MMOL/L (5-14); ASPARTATE AMINO TRANSFERASE 22 U/L (5-34); BILIRUBIN,TOTAL 0.5 MG/DL (0.1-1.0); BLOOD UREA NITROGEN 19 MG/DL (7-18); BUN/CREATININE RATIO 28; CALCIUM 9.8 MG/DL (8.5-10.1); CARBON DIOXIDE 22 MMOL/L (21-32); CHLORIDE 101 MMOL/L (98-107); CREATININE SERUM 0.68 MG/DL (0.60-1.30); GFR ESTIMATED > 60; GLUCOSE 144 MG/DL (70-105); MAGNESIUM 1.3 MG/DL (1.8-2.4); POTASSIUM 3.4 MMOL/L (3.6-5.0); SODIUM 135 MMOL/L (135-145); TOTAL PROTEIN 6.9 G/DL (6.4-8.2)
[2017-03-09 14:52] LABS: MYOGLOBIN SERUM 329.3 NG/ML (10.0-92.0)
[2017-03-09] MEDS ORDERED: IOHEXOL 350 MG/ML 100 ML (OMNIPAQUE 350) VIAL IV ONE (15:00)
[2017-03-09] MEDS ORDERED: NS 100 ML (IVPB) BAG IV ONE (15:00)
[2017-03-09 15:14] VITALS: BP 124/74
--- NOTE | 2017-03-09 15:51 | Diagnostic Imaging Report ---
PROCEDURE: CT chest with contrast only. TECHNIQUE: Multiple contiguous axial images were obtained through the chest after administration of intravenous contrast. DATE: March 09, 2017. COMPARISON: Chest radiographs March 09, 2017. CT chest July 29, 2016. INDICATION: 61-year-old male, congestion, cough, fever. FINDINGS: There is tree-in-bud nodularity in the right upper lobe seen on axial image 31 and adjacent sequential images which is a new finding since prior CT chest. There are additional predominantly linear opacities in the right upper lobe, lingula, left lower lobe, and right lower lobe, which are essentially unchanged since comparison CT. There are some areas of groundglass attenuation in the left lower lobe which appear mildly increased. There is no identified pneumothorax. There is no pleural effusion. The central airways are patent. There is no identified pulmonary embolus. The main pulmonary artery measures 3 cm in diameter which is right at the upper limits of normal. The heart is not grossly enlarged. There is no pericardial effusion. There is a right paratracheal lymph node at the level of the superior mediastinum on axial image 13 which measures 9 mm in short axis. This is unchanged since comparison exam. There is no additional prominent mediastinal, hilar, or axillary lymph node. The liver appears diffusely low in attenuation suggesting diffuse fatty infiltration of the liver. The patient is status post cholecystectomy. Additional limited evaluation of the visualized portions of the upper abdomen is unremarkable. There are multilevel degenerative changes of the spine. There are advanced left glenohumeral degenerative changes. There are there is no identified acute bony abnormality. IMPRESSION: CT CHEST. 1. Tree-in-bud nodular opacities in the right upper lobe which are new since comparison CT chest most suggestive of an infectious bronchiolitis or other process which spreads to be a endobronchial means. 2. Mildly increased areas of groundglass and alveolar consolidation in the left lower labrum which may relate to aspiration, pneumonia, or other alveolar consolidative process. 3. Additional predominantly linear opacities which are essentially unchanged and may reflect changes of chronic lung disease. 4. No identified pulmonary embolus. 5. Mild diffuse fatty infiltration of the liver. Dictated by: Dictated on workstation # [id number]
[2017-03-09] MEDS ORDERED: ACETAMINOPHEN 325 MG TABLET/CAPLET (TYLENOL) PO PRN (16:15)
[2017-03-09] MEDS: NS W/KCL 20 MEQ/L 1,000 ML IV SCH (16:15)
[2017-03-09 16:16] VITALS: BP 130/74
[2017-03-09] MEDS ORDERED: VANCOMYCIN 1500 MG/NS 500 ML IVPB IV ONE ×2 (16:30)
[2017-03-09] MEDS ORDERED: RT-ALBUTEROL SULF 2.5 MG/3 ML PRE-MIX VIAL IH PRN (18:00)
[2017-03-09] MEDS ORDERED: LEVOFLOXACIN 750 MG/D5W 150 ML PRE-MIX IV SCH (19:00)
[2017-03-09] MEDS: RT-ADVAIR HFA 115/21 MCG PER PUFF IH SCH (19:14)
[2017-03-09 19:32] VITALS: BP 132/68
[2017-03-09] MEDS ORDERED: UMECLIDINIUM BROMIDE (INCRUSE ELLIPTA) 7'S IH SCH (20:00)
[2017-03-09] MEDS: PIPERACILLIN/TAZOBACTAM 4.5 GM/NS 100 ML IVPB IV SCH ×2 (22:36)
[2017-03-10] VITALS (7 sets, daily range): BP systolic 112–151; BP diastolic 57–74
[2017-03-10] MEDS: NS W/KCL 20 MEQ/L 1,000 ML IV SCH ×3 (03:20→22:30)
[2017-03-10] MEDS ORDERED: VANCOMYCIN 1250 MG/NS 250 ML IVPB IV SCH ×2 (05:00)
[2017-03-10 05:25] LABS: BASOPHILS # (AUTO) 0.1 10^3/uL (0.0-0.1); BASOPHILS % (AUTO) 1 % (0-10); EOSINOPHILS # (AUTO) 0.4 10^3/uL (0.0-0.3); EOSINOPHILS % (AUTO) 5 % (0-10); LYMPHOCYTES # (AUTO) 1.6 X 10^3 (1.0-4.0); LYMPHOCYTES % (AUTO) 21 % (12-44); MEAN CORPUSCULAR HEMOGLOBIN 30 PG (25-34); MEAN CORPUSCULAR HGB CONC 33 G/DL (32-36); MEAN CORPUSCULAR VOLUME 91 FL (80-99); MEAN PLATELET VOLUME 9.6 FL (7.4-10.4); MONOCYTES # (AUTO) 0.8 X 10^3 (0.0-1.0); MONOCYTES % (AUTO) 10 % (0-12); NEUTROPHILS # (AUTO) 4.5 X 10^3 (1.8-7.8); NEUTROPHILS % (AUTO) 62 % (42-75); PLATELET COUNT 229 10^3/uL (130-400); RED BLOOD COUNT 3.91 10^6/uL (4.35-5.85); RED CELL DISTRIBUTION WIDTH 13.8 % (10.0-14.5); WHITE BLOOD COUNT 7.3 10^3/uL (4.3-11.0)
[2017-03-10 05:46] LABS: ANION GAP 10 MMOL/L (5-14); BLOOD UREA NITROGEN 16 MG/DL (7-18); BUN/CREATININE RATIO 24; CARBON DIOXIDE 23 MMOL/L (21-32); CHLORIDE 107 MMOL/L (98-107); CREATININE SERUM 0.67 MG/DL (0.60-1.30); GFR ESTIMATED > 60; GLUCOSE 146 MG/DL (70-105); MAGNESIUM 1.1 MG/DL (1.8-2.4); POTASSIUM 3.6 MMOL/L (3.6-5.0); SODIUM 140 MMOL/L (135-145)
[2017-03-10 05:48] LABS: CHOLESTEROL 79 MG/DL (< 200); DIRECT LDL 35 MG/DL (1-129); TRIGLYCERIDES 111 MG/DL (<150); VLDL CHOLESTEROL 22 MG/DL (5-40)
[2017-03-10] MEDS: PIPERACILLIN/TAZOBACTAM 4.5 GM/NS 100 ML IVPB IV SCH ×8 (06:14→21:56)
--- NOTE | 2017-03-10 09:07 | Consultation-Cardiology ---
HPI-Cardiology Cardiology Consultation: Date of Consultation 03/10/17 Date of Admission 03-09-17 Attending Physician Laure Cueto MD Admitting Physician Codi Hudson DO Consulting Physician Bisi Dominguez MD HPI: Chief Complaint: Shortness of breath Chest pain Mr. Tapia is a 61 year old male admitted to 409 from the ED with increasing shortness of breath, fever, chills, productive cough, generalized malaise and diarrhea which started approx a week ago. He does report some chest heaviness, but reports this has resolved. He states she was seen by his PCP and started on abx and steroids, but he continued to feel progressively worse. He states he does feel better this morning. No c/o palpitations, syncope or near syncope. No c/o LE edema. Review of Systems-Cardiology Review of Systems Constitutional: As described under HPI Eyes: No blurred vision, No drainage, No pain, No vision change Ears/Nose/Throat: No ear discharge, No ear pain, No nasal drainage, No ulcerations Respiratory: As described under HPI Cardiovascular: As described under HPI Gastrointestinal: No constipation, diarrhea, No nausea, No vomiting, No stool coloration changes Genitourinary: No dysuria, No discharge, No frequency, No hematuria, No urgency Skin: No rash, No skin related problems, No ulcerations Psychiatric/Neurological: No anxiety, No depression, No focal weakness, No seizure, No syncope Hematologic: No bleeding abnormalities KNL-Zsexhp-Wxbogz Hx Patient Social History Alcohol Use: Denies Use Recreational Drug Use: No Smoking Status: Never a Smoker 2nd Hand Smoke Exposure: Yes Recent Foreign Travel: No Recent Infectious Disease Expo: No Hospitalization with Isolation: Denies Physical Abuse Screen: No Sexual Abuse: No Immunizations Up To Date Tetanus Booster (TDap): Unknown Date of Pneumonia Vaccine: Jul 28, 2012 Date of Influenza Vaccine: Jul 30, 2016 Past Medical History PMH As described under Assessment. Family Medical History Family Medical History: No reported family h/o CAD or SCD. Family History: 19 FATHER Arthritis Respiratory disorder 19 MOTHER Respiratory disorder Thyroid disease Allergies and Home Medications Allergies Coded Allergies: atorvastatin (Verified Allergy, Mild, 01/12/16) Patient states that his bones ached and he wasn't able to tolerate it. Home Medications Albuterol Sulfate 2.5 Mg/3 Ml Vial.neb, 2.5 MG IH Q4H PRN for SHORTNESS OF BREATH, (Reported) Allopurinol 300 Mg Tablet, 300 MG PO BID, (Reported) Apixaban 5 Mg Tablet, 5 MG PO BID, (Reported) Aspirin 81 Mg Chew, 81 MG PO HS, (Reported) Budesonide/Formoterol Fumarate 10.2 Gm Hfa.aer.ad, 2 PUFF IH DAILY, (Reported) Diclofenac Sodium 100 Gm Gel..gram., TP QID PRN for GOUT PAIN, (Reported) Doxycycline Hyclate 100 Mg Capsule, 100 MG PO BID, (Reported) 10 DAY SUPPLY FILLED 03-03-17 Dulaglutide 0.75 Mg/0.5 Ml Pen.injctr, 0.75 MG SQ We, (Reported) Fenofibrate Nanocrystallized 145 Mg Tablet, 145 MG PO HS, (Reported) Fluoxetine HCl 20 Mg Capsule, 40 MG PO DAILY, (Reported) TAKES 2 (20MG) CAPSULES Fluticasone Propionate 16 Gm [place].susp, 1 SPRAY NS BID PRN for CONGESTION, ( Reported) Gabapentin 300 Mg Capsule, 300 MG PO TID, (Reported) Glimepiride 4 Mg Tablet, 4 MG PO DAILY, (Reported) Hydrocodone/Acetaminophen 1 Each Tablet, 1 TAB PO BID PRN for PAIN-MODERATE, ( Reported) Lisinopril/Hydrochlorothiazide 1 Each Tablet, 1 TAB PO HS, (Reported) Meloxicam 7.5 Mg Tablet, 7.5 MG PO DAILY, (Reported) Metformin HCl 1,000 Mg Tablet, 1,000 MG PO BID, (Reported) Metoprolol Succinate 25 Mg Tab.er.24h, 25 MG PO HS, (Reported) Montelukast Sodium 10 Mg Tablet, 10 MG PO HS, (Reported) [place] 3 Polyunsat Fatty Acids 1,000 Mg Cap, 1,000 MG PO BID, (Reported) Omeprazole 20 Mg Capsule.dr, 20 MG PO DAILY, (Reported) Potassium Gluconate 99 Mg Tablet, 99 MG PO DAILY, (Reported) Rosuvastatin Calcium 20 Mg Tablet, 20 MG PO HS, (Reported) Umeclidinium [place] 62.5 Mcg Blst.w.dev, 1 PUFF IH DAILY, (Reported) Physical Exam-Cardiology Physical Exam Vital Signs/I&O Vital Sign - Last 12Hours 03/10/17 03/10/17 03/10/17 03/10/17 03:55 07:59 08:40 09:33 Temp 97.2 96.6 Pulse 74 83 Resp 20 20 B/P (MAP) 112/67 122/65 Pulse Ox 95 96 95 95 03/10/17 12:12 Temp 96.5 Pulse 83 Resp 20 B/P (MAP) 119/69 Pulse Ox 96 Intake and Output 03/10/17 00:00 Intake Total 965 ml Balance 965 ml Capillary Refill : Less Than 3 Seconds Constitutional: appears stated age, No apparent distress, well-developed, well- nourished HEENT: PERRL, No discharge, hearing is well preserved, oral hygience is good, No ulceration, No xanthelasmas are seen Neck: No carotid bruit, carotid pulses are 2 + bilaterally Respiratory: No accessory muscle use, No respiratory distress, chest expansion is symmetric, rhonchi (scattered), other (coarse lower lobes) Cardiovascular: regular rate-rhythm, No JVD, S1 and S2 Gastrointestinal: No tender, soft, round, audible bowel sounds, No spleenomegaly Extremities: No clubbing, No cyanosis, No significant edema Neurologic/Psychiatric: alert, oriented x 3, power is 5/5 both on sides Skin: No rash, No ulcerations Data Review Labs Laboratory Tests 03/09/17 14:04: Sodium Level 135, Potassium Level 3.4L, Chloride Level 101, Carbon Dioxide Level 22, Anion Gap 12, Blood Urea Nitrogen 19H, Creatinine 0.68, Estimat Glomerular Filtration Rate > 60, BUN/Creatinine Ratio 28, Glucose Level 144H, Calcium Level 9.8, Magnesium Level 1.3L, Total Bilirubin 0.5, Aspartate Amino Transf (AST/SGOT) 22, Alanine Aminotransferase (ALT/SGPT) 35, Alkaline Phosphatase 55, Myoglobin 329.3H, Troponin I < 0.30, Total Protein 6.9, Albumin 3.6 03/10/17 05:20: Sodium Level 140, Potassium Level 3.6, Chloride Level 107, Carbon Dioxide Level 23, Anion Gap 10, Blood Urea Nitrogen 16, Creatinine 0.67, Estimat Glomerular Filtration Rate > 60, BUN/Creatinine Ratio 24, Glucose Level 146H, Calcium Level 9.0, Magnesium Level 1.1L, White Blood Count 7.3, Red Blood Count 3.91L, Hemoglobin 11.7L, Hematocrit 36L, Mean Corpuscular Volume 91, Mean Corpuscular Hemoglobin 30, Mean Corpuscular Hemoglobin Concent 33, Red Cell Distribution Width 13.8, Platelet Count 229, Mean Platelet Volume 9.6, Neutrophils (%) (Auto ) 62, Lymphocytes (%) (Auto) 21, Monocytes (%) (Auto) 10, Eosinophils (%) (Auto ) 5, Basophils (%) (Auto) 1, Neutrophils # (Auto) 4.5, Lymphocytes # (Auto) 1.6 , Monocytes # (Auto) 0.8, Eosinophils # (Auto) 0.4H, Basophils # (Auto) 0.1, Triglycerides Level 111, Cholesterol Level 79, LDL Cholesterol Direct 35, VLDL Cholesterol 22, HDL Cholesterol 21L Radiology NAME: AMIRA TAPIA [facility] REC#: [id number] PT STATUS: ADM IN : 1955 PHYSICIAN: AMELIE WEEKS APRN ADMIT DATE: 03/09/17 Signed Date of Exam: 03/09/17 CT CHEST W PROCEDURE: CT chest with contrast only. TECHNIQUE: Multiple contiguous axial images were obtained through the chest after administration of intravenous contrast. DATE: March 09, 2017. COMPARISON: Chest radiographs March 09, 2017. CT chest July 29, 2016. INDICATION: 61-year-old male, congestion, cough, fever. FINDINGS: There is tree-in-bud nodularity in the right upper lobe seen on axial image 31 and adjacent sequential images which is a new finding since prior CT chest. There are additional predominantly linear opacities in the right upper lobe, lingula, left lower lobe, and right lower lobe, which are essentially unchanged since comparison CT. There are some areas of groundglass attenuation in the left lower lobe which appear mildly increased. There is no identified pneumothorax. There is no pleural effusion. The central airways are patent. There is no identified pulmonary embolus. The main pulmonary artery measures 3 cm in diameter which is right at the upper limits of normal. The heart is not grossly enlarged. There is no pericardial effusion. There is a right paratracheal lymph node at the level of the superior mediastinum on axial image 13 which measures 9 mm in short axis. This is unchanged since comparison exam. There is no additional prominent mediastinal, hilar, or axillary lymph node. The liver appears diffusely low in attenuation suggesting diffuse fatty infiltration of the liver. The patient is status post cholecystectomy. Additional limited evaluation of the visualized portions of the upper abdomen is unremarkable. There are multilevel degenerative changes of the spine. There are advanced left glenohumeral degenerative changes. There are there is no identified acute bony abnormality. IMPRESSION: CT CHEST. 1. Tree-in-bud nodular opacities in the right upper lobe which are new since comparison CT chest most suggestive of an infectious bronchiolitis or other process which spreads to be a endobronchial means. 2. Mildly increased areas of groundglass and alveolar consolidation in the left lower labrum which may relate to aspiration, pneumonia, or other alveolar consolidative process. 3. Additional predominantly linear opacities which are essentially unchanged and may reflect changes of chronic lung disease. 4. No identified pulmonary embolus. 5. Mild diffuse fatty infiltration of the liver. Dictated by: Dictated on workstation # [id number] Dict: 03/09/17 1538 Trans: 03/09/171725 Interpreted by: SUSSY LOWERY MD Electronically signed by: SUSSY LOWERY MD 03/09/171725 NAME: AMIRA TAPIA [facility] REC#: [id number] PT STATUS: REG ER : 1955 PHYSICIAN: AMELIE WEEKS APRN ADMIT DATE: 03/09/17/ER Signed Date of Exam: 03/09/17 CHEST PA/LAT (2 VIEW) Indication: Chest pain PA and lateral chest Comparison study from 02/09/2016 There are central interstitial fibrosis in both lungs appear similar to the prior exam. There are no consolidating alveolar infiltrates. There are no effusions or pneumothoraces. Heart size and pulmonary vascularity are normal. Impression: Scarring in the lungs. No acute abnormalities or changes since 02/09/2016. Dictated by: Dictated on workstation # [id number] Dict: 03/09/17 1347 Trans: 03/09/171347 Interpreted by: THEODORE DALEY Electronically signed by: THEODORE DALEY 03/09/17 1348 ECG Impression ECG Initial ECG Rhythm: S.Tach A/P-Cardiology Assessment/Admission Diagnosis Pneumonia - management per medical services Chest discomfort with no evidence of ACS Hypomagnesium - replace Abdominal aortic and peripheral angiogram of August 2016 did not indicate any significant abdominal aortic aneurysm. No significant renal artery stenosis. No significant peripheral arterial disease involving the circulation of the lower limbs. Venous duplex of 09-11-16 showed no evidence of DVT bilat PAF, documented during a hospitalization for pneumonia in December 2015. Currently SR Chronic stroke prophylaxis with apixaban CAD with h/o Resolute 2.5x12 to mid LCX in May 2012, and Resolute 2.5x12 to distal LCx in Oct 2012. MPI of 12/01/14 showed no evidence of ischemia or infarction; LVEF was 64% Echo of 01/12/16 (Dr Lama) showed LVEF 50-60%, mild LAE, normal valve structures, normal right-sided chambers Mild anemia of undetermined etiology, being followed by his fam jamila Bilat pleural thickening and R lung nodules, followed by his patents examiner, Dr Hightower COPD HL, followed by his fam phy H/o mild liver enz elev, [facility] HILDA, treated with CPAP and managed by Dr Hightower TSH normal on 01/11/16 (1.61) Discussion and Recomendations Chest heaviness with no evidence of ACS. Continue ASA d/t h/o CAD. Continue Eliquis d/t h/o PAF for stroke prophylaxis. Continue BB and IVOLA (-). Continue statin tx. Treatment of pneumonia is by medical services. Monitor lab closely. Further recommendations will be based on his hospital course. We would like to thank Dr. Riley for this consult. This consult is being scribed by Sushma Arteaga APRN on behalf of Dr. Dominguez after discussion regarding plan of care. Clinical Quality Measures AMI/AHF: ASA po Prior to arrival: No DVT/VTE Risk/Contraindication: Risk Factor Score Per Nursin RFS Level Per Nursing on Admit: 2=Moderate Physician Assessment Physician Assessment Lungs: fair to good bilat air entry Cor: reg A&R * As documented in our note above * I spoke with him and answered his questions MORRIS ARTEAGA [employer] March 10, 2017 09:07 BISI DOMINGUEZ MD FACP FAC CCDS March 10, 2017 13:28
[2017-03-10] MEDS ORDERED: DOXY100C2 PO (09:20)
[2017-03-10] MEDS ORDERED: HYDR-3812 PO (09:20)
[2017-03-10] MEDS ORDERED: MELO7.5T46 PO (09:20)
[2017-03-10] MEDS: MAGNESIUM 1 GM/100 ML IVPB 100 ML IV SCH ×4 (09:20→13:37)
[2017-03-10] MEDS ORDERED: ROSU20TA28 PO (09:20)
--- NOTE | 2017-03-10 09:27 | History & Physical-Hospitalist ---
HPI History of Present Illness: HPI/Chief Complaint CC: Fever with cough HPI: This is a 61-year-old white male with history of barron's lung and multiple pneumonias in the past along with cardiac arrhythmia managed by Dr. Dominguez the presents to the ER with complaints of cough and shortness of breath with fever. Apparently he was placed on doxycycline as an outpatient and has failed that CT scan was obtained showing new infiltrate and considering the recurrence type of his pneumonia record IV antibiotics nebulizer treatments oxygen supplementation and cardiology management. At this current time his elevated BNP is evidence of volume overload but his lung exam is much improved from admission. I reconciled all of his home medication and have consulted Dr. Dominguez. Currently he denies any significant pain or cough and is about to eat breakfast. Source: patient Exam Limitations: no limitations Date Seen 03/10/17 Attending Physician Laure Cueto MD PCP Codi Hudson DO Referring Physician Date of Admission March 09, 2017 at 13:49 Home Medications & Allergies Home Medications Reviewed patient Home Medication Reconciliation Form Allergies Allergies Coded Allergies atorvastatin (Verified Allergy, Mild, 01/12/16) Patient states that his bones ached and he wasn't able to tolerate it. Past Atulxid-Iuigru-Cpmsmh Hx Patient Social History Employed/Student: unemployed Alcohol Use: Denies Use Recreational Drug Use: No Smoking Status: Never a Smoker 2nd Hand Smoke Exposure: Yes Physical Abuse Screen: No Sexual Abuse: No Recent Foreign Travel: No Contact w/other who traveled: No Recent Hopitalizations: No Recent Infectious Disease Expo: No Immunizations Up To Date Tetanus Booster (TDap): Unknown Date of Pneumonia Vaccine: Jul 28, 2012 Date of Influenza Vaccine: Jul 30, 2016 Seasonal Allergies Seasonal Allergies: No Surgeries HX Surgeries: Yes Surgeries: Abdominal, Appendectomy, Cardiac, Coronary Stent, Eye Surgery, Renal Respiratory Hx Respiratory Disorders: Yes ("pigeon's disease") Respiratory Disorders: COPD Cardiovascular Hx Cardiovascular Disorders: Yes Cardiac Disorders: Atrial Fibrillation, Coronary Artery Disease, High Cholesterol, Hypertension Neurological Hx Neurological Disorders: No Reproductive System Hx Reproductive Disorders: No Sexually Transmitted Disease: No HIV/AIDS: No Genitourinary Hx Genitourinary Disorders: No Genitourinary Disorders: Kidney Stones Gastrointestinal Hx Gastrointestinal Disorders: Yes Gastrointestinal Disorders: Gastroesophageal Reflux, Polyps Musculoskeletal Hx Musculoskeletal Disorders: Yes Musculoskeletal Disorders: Degenerate Disk Disease, Arthritis, Chronic Back Pain, Gout Endocrine Hx Endocrine Disorders: Yes Endocrine Disorders: Diabetes, Non-Insulin dep HEENT HX ENT Disorders: No Loss of Vision: Denies Cancer Hx Cancer: No Psychosocial Hx Psychiatric Problems: Yes Behavioral Health Disorders: Anxiety, Depression Integumentary HX Skin/Integumentary Disorder: No Blood Transfusions Hx Blood Disorders: No Adverse Reaction to a Blood Tr: No Family Medical History Significant Family History: Lung Disease Family Hx: Arthritis 19 FATHER Respiratory disorder 19 FATHER 19 MOTHER Thyroid disease 19 MOTHER No Family History of: AIDS Abdominal aortic aneurysm Alcoholism Alzheimer's disease Asthma Cardiovascular disease Dementia Diabetes mellitus Drug abuse Hypertension Kidney disease Myocardial infarction Parkinson's disease Psychosocial problem Seizure disorder Review of Systems Constitutional: see HPI, chills, dizziness, fever, weakness EENTM: no symptoms reported Respiratory: cough, short of breath Cardiovascular: palpitations Gastrointestinal: no symptoms reported Genitourinary: no symptoms reported Musculoskeletal: no symptoms reported Skin: no symptoms reported Psychiatric/Neurological: No Symptoms Reported All Other Systems Reviewed Negative Unless Noted: Yes Physical Exam Physical Exam Vital Signs Vital Sign - Last 12Hours 03/09/17 03/09/17 13:25 13:26 Temp 100.6 Pulse 110 Resp 18 B/P (MAP) 129/92 Pulse Ox 95 O2 Delivery Room Air Capillary Refill : Less Than 3 Seconds General Appearance: No Apparent Distress, WD/WN, Chronically ill Eyes: Bilateral Eye Normal Inspection, Bilateral Eye PERRL HEENT: PERRL/EOMI, Normal ENT Inspection, Pharynx Normal Neck: Full Range of Motion, Normal Inspection, Non Tender, Supple, Carotid Bruit Respiratory: Chest Non Tender, No Accessory Muscle Use, No Respiratory Distress , Crackles, Decreased Breath Sounds Cardiovascular: Regular Rate, Rhythm, No Edema, No Gallop, No JVD, No Murmur, Normal Peripheral Pulses Gastrointestinal: Normal Bowel Sounds, No Organomegaly, No Pulsatile Mass, Non Tender, Soft Back: Normal Inspection, No CVA Tenderness, No Vertebral Tenderness Extremity: Normal Capillary Refill, Normal Inspection, Normal Range of Motion, Non Tender, No Calf Tenderness, No Pedal Edema Neurologic/Psychiatric: Alert, Oriented x3, No Motor/Sensory Deficits, Normal Mood/Affect Skin: Normal Color, Warm/Dry Lymphatic: No Adenopathy Results Results/Procedures Lab Laboratory Tests 03/09/17 13:20 03/09/17 14:04 5/15/17 05:20 Assessment/Plan Admission Diagnosis Assessment: Recurrent pneumonia requiring IV antibiotics since failed doxycycline Leukocytosis Elevated BNP History of cardiac arrhythmia managed by Dr. Dominguez Coronary artery disease Diabetes mellitus Hyperlipidemia Hypertension Assessment and Plan Plan: IV antibiotics Nebulizer treatments O2 management Cardiology consultation Reconcile all home meds Clinical Quality Measures AMI/AHF: ASA po Prior to arrival: No DVT/VTE Risk/Contraindication: Risk Factor Score Per Nursin RFS Level Per Nursing on Admit: 2=Moderate ANASTASIIA SOTO DO March 10, 2017 09:27
[2017-03-10] MEDS ORDERED: RT-ALBUTEROL SULF 2.5 MG/3 ML PRE-MIX VIAL IH PRN (09:30)
[2017-03-10] MEDS ORDERED: FLUTICASONE NASAL SPRAY (FLONASE) 16 GM BTL NS PRN (09:30)
[2017-03-10] MEDS ORDERED: DICLOFENAC 1% GEL 100 GM (VOLTAREN) TUBE TP PRN (09:30)
[2017-03-10] MEDS: RT-ADVAIR HFA 115/21 MCG PER PUFF IH SCH ×2 (09:33→18:39)
[2017-03-10] MEDS ORDERED: HYDROcodone/APAP 5 MG/325 MG (LORTAB) TAB PO PRN (10:30)
[2017-03-10] MEDS: GABAPENTIN 300 MG (NEURONTIN) CAP PO SCH ×2 (13:35→20:16)
[2017-03-10] MEDS ORDERED: TROUGH ORDER-PHARMACY XX NR (16:00)
[2017-03-10] MEDS: ALLOPURINOL 300 MG (ZYLOPRIM) TAB PO SCH (20:17)
[2017-03-10] MEDS ORDERED: ROSUVASTATIN 20 MG (CRESTOR) TABLET PO SCH (21:00)
[2017-03-10] MEDS ORDERED: OMEGA 3 (FISH OIL) 1000 MG CAP PO SCH (21:00)
[2017-03-10] MEDS ORDERED: MONTELUKAST 10 MG (SINGULAIR) TAB PO SCH (21:00)
[2017-03-10] MEDS ORDERED: FENOFIBRATE 134 MG (LOFIBRA) CAPSULE PO SCH (21:00)
[2017-03-10] MEDS ORDERED: ASPIRIN 81 MG CHEW (CHILDREN'S ASA) PO SCH (21:00)
[2017-03-10] MEDS ORDERED: APIXABAN 5 MG (ELIQUIS) TABLET PO SCH (21:00)
[2017-03-11] MEDS: NS W/KCL 20 MEQ/L 1,000 ML IV SCH (04:23)
[2017-03-11 04:50] LABS: BASOPHILS % (AUTO) 0 % (0-10); EOSINOPHILS # (AUTO) 0.4 10^3/uL (0.0-0.3); EOSINOPHILS % (AUTO) 4 % (0-10); LYMPHOCYTES # (AUTO) 1.2 X 10^3 (1.0-4.0); LYMPHOCYTES % (AUTO) 12 % (12-44); MEAN CORPUSCULAR HEMOGLOBIN 30 PG (25-34); MEAN CORPUSCULAR HGB CONC 33 G/DL (32-36); MEAN CORPUSCULAR VOLUME 92 FL (80-99); MEAN PLATELET VOLUME 9.5 FL (7.4-10.4); MONOCYTES # (AUTO) 0.6 X 10^3 (0.0-1.0); MONOCYTES % (AUTO) 7 % (0-12); NEUTROPHILS # (AUTO) 7.5 X 10^3 (1.8-7.8); NEUTROPHILS % (AUTO) 77 % (42-75); PLATELET COUNT 244 10^3/uL (130-400); RED BLOOD COUNT 3.99 10^6/uL (4.35-5.85); RED CELL DISTRIBUTION WIDTH 13.9 % (10.0-14.5); WHITE BLOOD COUNT 9.8 10^3/uL (4.3-11.0)
[2017-03-11] MEDS: PIPERACILLIN/TAZOBACTAM 4.5 GM/NS 100 ML IVPB IV SCH ×2 (05:10)
[2017-03-11 05:13] LABS: ALANINE AMINOTRANSFERASE 29 U/L (0-55); ALBUMIN 3.1 G/DL (3.2-4.5); ANION GAP 10 MMOL/L (5-14); ASPARTATE AMINO TRANSFERASE 15 U/L (5-34); BILIRUBIN,TOTAL 0.3 MG/DL (0.1-1.0); BLOOD UREA NITROGEN 17 MG/DL (7-18); BUN/CREATININE RATIO 26; CALCIUM 7.8 MG/DL (8.5-10.1); CARBON DIOXIDE 21 MMOL/L (21-32); CHLORIDE 110 MMOL/L (98-107); CHOLESTEROL 88 MG/DL (< 200); CREATININE SERUM 0.65 MG/DL (0.60-1.30); DIRECT LDL 44 MG/DL (1-129); GFR ESTIMATED > 60; GLUCOSE 186 MG/DL (70-105); MAGNESIUM 1.1 MG/DL (1.8-2.4); POTASSIUM 4.7 MMOL/L (3.6-5.0); SODIUM 141 MMOL/L (135-145); TOTAL PROTEIN 5.9 G/DL (6.4-8.2); TRIGLYCERIDES 132 MG/DL (<150); VLDL CHOLESTEROL 26 MG/DL (5-40)
[2017-03-11] MEDS ORDERED: GLIMEPIRIDE 4 MG (AMARYL) TAB PO SCH (06:30)
[2017-03-11] MEDS: RT-ADVAIR HFA 115/21 MCG PER PUFF IH SCH (06:48)
[2017-03-11] MEDS ORDERED: PANTOPRAZOLE 20 MG TABLET (PROTONIX) PO SCH (07:00)
[2017-03-11] MEDS: GABAPENTIN 300 MG (NEURONTIN) CAP PO SCH (08:05)
[2017-03-11 08:06] VITALS: BP 109/66
[2017-03-11] MEDS: ALLOPURINOL 300 MG (ZYLOPRIM) TAB PO SCH (08:06)
[2017-03-11] MEDS ORDERED: NON-FORMULARY MEDICATION 1 EA EA (Potassium Gluconate (Potassium) 99 MG) PO SCH (09:00)
[2017-03-11] MEDS ORDERED: lisINopril 10 MG (PRINIVIL) TAB PO SCH (09:00)
[2017-03-11] MEDS ORDERED: RT-SYMBICORT 160/4.5 MCG INHALER PER PUFF IH SCH (09:00)
[2017-03-11] MEDS ORDERED: FLUoxetine HCL 20 MG (PROzac) CAP PO SCH (09:00)
[2017-03-11] MEDS ORDERED: HYDROCHLOROTHIAZIDE 12.5 MG (HCTZ) CAP PO SCH (09:00)
[2017-03-11] MEDS ORDERED: MELOXICAM 7.5 MG (MOBIC) TABLET PO SCH (09:00)
[2017-03-11] MEDS ORDERED: UMECLIDINIUM BROMIDE (INCRUSE ELLIPTA) 7'S IH SCH (09:00)
[2017-03-11] MEDS ORDERED: AMOX-358 PO (09:31)
--- NOTE | 2017-03-11 09:33 | Discharge Summary-Hospitalist ---
Diagnosis/Chief Complaint Date of Admission March 09, 2017 at 13:49 Date of Discharge Discharge Date: March 11, 2017 Admission Diagnosis Assessment: Recurrent pneumonia requiring IV antibiotics since failed doxycycline Leukocytosis Elevated BNP History of cardiac arrhythmia managed by Dr. Dominguez Coronary artery disease Diabetes mellitus Hyperlipidemia Hypertension Discharge Diagnosis Patient doing much better Assessment: Recurrent pneumonia requiring IV antibiotics since failed doxycycline Leukocytosis Elevated BNP History of cardiac arrhythmia managed by Dr. Dominguez Coronary artery disease Diabetes mellitus Hyperlipidemia Hypertension Plan: IV antibiotics Nebulizer treatments O2 management Cardiology consultation Reconcile all home meds Reason Hospital Visit/Course CC: Fever with cough HPI: This is a 61-year-old white male with history of barron's lung and multiple pneumonias in the past along with cardiac arrhythmia managed by Dr. Dominguez the presents to the ER with complaints of cough and shortness of breath with fever. Apparently he was placed on doxycycline as an outpatient and has failed that CT scan was obtained showing new infiltrate and considering the recurrence type of his pneumonia record IV antibiotics nebulizer treatments oxygen supplementation and cardiology management. At this current time his elevated BNP is evidence of volume overload but his lung exam is much improved from admission. I reconciled all of his home medication and have consulted Dr. Dominguez. Currently he denies any significant pain or cough and is about to eat breakfast. 03/11/17: No fever, vital signs stable, pleasant CTAB no rales noted Hospital course: Patient uneventful hospital course he was admitted placed on broad-spectrum antibiotics due to recurrent pneumonia and occupational lung disease. He did have bloody stools while he was admitted so anticoagulation aspirin and anti-inflammatory all held and Dr. De Los Santos was consulted. Outpatient endoscopy will be scheduled. He does report bloody stools on occasion and had a colonoscopy many years ago. Overall he sees Dr. Hightower regularly so he will follow up with Dr. Hightower and [facility] and everything was arranged prior to discharge. Discharge Summary Discharge Physical Examination Allergies: Coded Allergies: atorvastatin (Verified Allergy, Mild, 01/12/16) Patient states that his bones ached and he wasn't able to tolerate it. Vitals & I&Os Vital Signs Date Time Temp Pulse Resp B/P (MAP) Pulse Ox O2 Delivery O2 Flow Rate FiO2 03/11/17 08:06 96.7 73 16 109/66 100 03/09/17 15:14 Room Air Hospital Course Labs (last 24 hrs) Laboratory Tests 03/10/17 14:00: Stool Occult Blood Immunoassay POSITIVEH 03/10/17 16:27: Vancomycin Level Trough 12.0 03/11/17 04:35: White Blood Count 9.8, Red Blood Count 3.99L, Hemoglobin 12.0L, Hematocrit 37L, Mean Corpuscular Volume 92, Mean Corpuscular Hemoglobin 30, Mean Corpuscular Hemoglobin Concent 33, Red Cell Distribution Width 13.9, Platelet Count 244, Mean Platelet Volume 9.5, Neutrophils (%) (Auto) 77H, Lymphocytes (%) (Auto) 12 , Monocytes (%) (Auto) 7, Eosinophils (%) (Auto) 4, Basophils (%) (Auto) 0, Neutrophils # (Auto) 7.5, Lymphocytes # (Auto) 1.2, Monocytes # (Auto) 0.6, Eosinophils # (Auto) 0.4H, Basophils # (Auto) 0.0, Sodium Level 141, Potassium Level 4.7, Chloride Level 110H, Carbon Dioxide Level 21, Anion Gap 10, Blood Urea Nitrogen 17, Creatinine 0.65, Estimat Glomerular Filtration Rate > 60, BUN/ Creatinine Ratio 26, Glucose Level 186H, Calcium Level 7.8L, Magnesium Level 1.1L, Total Bilirubin 0.3, Aspartate Amino Transf (AST/SGOT) 15, Alanine Aminotransferase (ALT/SGPT) 29, Alkaline Phosphatase 45, Total Protein 5.9L, Albumin 3.1L, Triglycerides Level 132, Cholesterol Level 88, LDL Cholesterol Direct 44, VLDL Cholesterol 26, HDL Cholesterol 23L Microbiology 03/09/17 Blood Culture - Preliminary, Resulted No growth Pending Labs Laboratory Tests 03/11/17 04:35: White Blood Count 9.8, Red Blood Count 3.99, Hemoglobin 12.0, Hematocrit 37, Mean Corpuscular Volume 92, Mean Corpuscular Hemoglobin 30, Mean Corpuscular Hemoglobin Concent 33, Red Cell Distribution Width 13.9, Platelet Count 244, Mean Platelet Volume 9.5, Neutrophils (%) (Auto) 77, Lymphocytes (%) (Auto) 12, Monocytes (%) (Auto) 7, Eosinophils (%) (Auto) 4, Basophils (%) (Auto) 0, Neutrophils # (Auto) 7.5, Lymphocytes # (Auto) 1.2, Monocytes # (Auto) 0.6, Eosinophils # (Auto) 0.4, Basophils # (Auto) 0.0, Sodium Level 141, Potassium Level 4.7, Chloride Level 110, Carbon Dioxide Level 21, Anion Gap 10, Blood Urea Nitrogen 17, Creatinine 0.65, Estimat Glomerular Filtration Rate > 60, BUN/ Creatinine Ratio 26, Glucose Level 186, Calcium Level 7.8, Magnesium Level 1.1, Total Bilirubin 0.3, Aspartate Amino Transf (AST/SGOT) 15, Alanine Aminotransferase (ALT/SGPT) 29, Alkaline Phosphatase 45, Total Protein 5.9, Albumin 3.1, Triglycerides Level 132, Cholesterol Level 88, LDL Cholesterol Direct 44, VLDL Cholesterol 26, HDL Cholesterol 23 Discharge Home Medications: Active Scripts Active Augmentin 875-125 Tablet (Amoxicillin/Potassium Clav) 1 Each Tablet 1 Each PO BID Reported Rosuvastatin Calcium 20 Mg Tablet 20 Mg PO HS Hydrocodon -Acetaminophen 5-325 (Hydrocodone/Acetaminophen) 1 Each Tablet 1 Tab PO BID PRN Albuterol Sulfate 2.5 Mg/3 Ml Vial.neb 2.5 Mg IH Q4H PRN Incruse Ellipta (Umeclidinium [place]) 62.5 Mcg Blst.w.dev 1 Puff IH DAILY Symbicort 160-4.5 Mcg Inhaler (Budesonide/Formoterol Fumarate) 10.2 Gm Hfa.aer.ad 2 Puff IH DAILY Potassium (Potassium Gluconate) 99 Mg Tablet 99 Mg PO DAILY Fish Oil 1,000 mg Capsule ([place] 3 Polyunsat Fatty Acids) 1,000 Mg Cap 1,000 Mg PO BID Trulicity (Dulaglutide) 0.75 Mg/0.5 Ml Pen.injctr 0.75 Mg SQ WE Montelukast Sodium 10 Mg Tablet 10 Mg PO HS Metoprolol Succinate 25 Mg Tab.er.24h 25 Mg PO HS Voltaren (Diclofenac Sodium) 100 Gm Gel..gram. TP QID PRN Allopurinol 300 Mg Tablet 300 Mg PO BID Fluticasone Propionate 16 Gm [place].susp 1 [place] NS BID PRN Glimepiride 4 Mg Tablet 4 Mg PO DAILY Metformin HCl 1,000 Mg Tablet 1,000 Mg PO BID Fluoxetine HCl 20 Mg Capsule 40 Mg PO DAILY TAKES 2 (20MG) CAPSULES Omeprazole 20 Mg Capsule.dr 20 Mg PO DAILY Lisinopril-Hctz 10-12.5 mg Tab (Lisinopril/Hydrochlorothiazide) 1 Each Tablet 1 Tab PO HS Tricor (Fenofibrate Nanocrystallized) 145 Mg Tablet 145 Mg PO HS Gabapentin 300 Mg Capsule 300 Mg PO TID Instructions to patient/family Please see electonic discharge instructions given to patient. Clinical Quality Measures AMI/AHF: ASA po Prior to arrival: No DVT/VTE Risk/Contraindication: Risk Factor Score Per Nursin RFS Level Per Nursing on Admit: 2=Moderate ANASTASIIA SOTO DO March 11, 2017 09:33
--- NOTE | 2017-03-11 09:57 | Progress Note-Cardiology ---
Cardiology SOAP Progress Note Subjective: Sitting up on the side of the bed. States he feels better today and is going home today. Objective: I&O/Vital Signs Vital Sign - Last 12Hours 03/10/17 03/11/17 03/11/17 23:55 06:48 08:06 Temp 96.6 96.7 Pulse 93 73 Resp 18 16 B/P (MAP) 150/63 109/66 Pulse Ox 95 95 100 Intake and Output 03/11/17 00:00 Intake Total 2270 ml Output Total 700 ml Balance 1570 ml Weight (Pounds): 176 Weight (Ounces): 2.0 Weight (Calculated Kilograms): 79.606183 Constitutional: appears stated age, No apparent distress, well-developed, well- nourished Respiratory: No accessory muscle use, No respiratory distress, chest expansion is symmetric, chest is bilaterally symmetric, lungs clear to auscultation Cardiovascular: regular rate-rhythm, No JVD, S1 and S2 Gastrointestional: No tender, soft, round, audible bowel sounds, No spleenomegaly Extremities: No clubbing, No cyanosis, No significant edema Neurologic/Psychiatric: alert, oriented x 3, power is 5/5 both on sides Skin: No rash, No ulcerations Results/Procedures: Labs Laboratory Tests 03/10/17 14:00: Stool Occult Blood Immunoassay POSITIVEH 03/10/17 16:27: Vancomycin Level Trough 12.0 03/11/17 04:35: White Blood Count 9.8, Red Blood Count 3.99L, Hemoglobin 12.0L, Hematocrit 37L, Mean Corpuscular Volume 92, Mean Corpuscular Hemoglobin 30, Mean Corpuscular Hemoglobin Concent 33, Red Cell Distribution Width 13.9, Platelet Count 244, Mean Platelet Volume 9.5, Neutrophils (%) (Auto) 77H, Lymphocytes (%) (Auto) 12 , Monocytes (%) (Auto) 7, Eosinophils (%) (Auto) 4, Basophils (%) (Auto) 0, Neutrophils # (Auto) 7.5, Lymphocytes # (Auto) 1.2, Monocytes # (Auto) 0.6, Eosinophils # (Auto) 0.4H, Basophils # (Auto) 0.0, Sodium Level 141, Potassium Level 4.7, Chloride Level 110H, Carbon Dioxide Level 21, Anion Gap 10, Blood Urea Nitrogen 17, Creatinine 0.65, Estimat Glomerular Filtration Rate > 60, BUN/ Creatinine Ratio 26, Glucose Level 186H, Calcium Level 7.8L, Magnesium Level 1.1L, Total Bilirubin 0.3, Aspartate Amino Transf (AST/SGOT) 15, Alanine Aminotransferase (ALT/SGPT) 29, Alkaline Phosphatase 45, Total Protein 5.9L, Albumin 3.1L, Triglycerides Level 132, Cholesterol Level 88, LDL Cholesterol Direct 44, VLDL Cholesterol 26, HDL Cholesterol 23L Microbiology 03/09/17 Blood Culture - Preliminary, Resulted No growth Laboratory Tests 03/09/17 13:20 03/09/17 14:04 03/10/17 05:20 03/11/17 04:35 A/P: Assessment: Pneumonia - management per medical services Chest discomfort with no evidence of ACS Hypomagnesium - replace Abdominal aortic and peripheral angiogram of August 2016 did not indicate any significant abdominal aortic aneurysm. No significant renal artery stenosis. No significant peripheral arterial disease involving the circulation of the lower limbs. Venous duplex of 09-11-16 showed no evidence of DVT bilat PAF, documented during a hospitalization for pneumonia in December 2015. Currently SR Chronic stroke prophylaxis with apixaban CAD with h/o Resolute 2.5x12 to mid LCX in May 2012, and Resolute 2.5x12 to distal LCx in Oct 2012. MPI of 12/01/14 showed no evidence of ischemia or infarction; LVEF was 64% Echo of 01/12/16 (Dr Lama) showed LVEF 50-60%, mild LAE, normal valve structures, normal right-sided chambers Mild anemia of undetermined etiology, being followed by his fam phy Bilat pleural thickening and R lung nodules, followed by his manager cafe, Dr Hightower COPD HL, followed by his fam phy H/o mild liver enz elev, followed by his fam phy DM II HILDA, treated with CPAP and managed by Dr Hightower TSH normal on 01/11/16 (1.61) Plan: Continue current regimen Replace mag Out pt lab and f/u OK to discharge home from cardiac stand point Clinical Quality Measures AMI/AHF: ASA po Prior to arrival: MORRIS Andres March 11, 2017 09:56
[2017-03-11] MEDS ORDERED: MAGNESIUM OXIDE (MAG-OX)400 MG TAB PO NR (10:00)
[2017-03-12] MEDS ORDERED: NON-FORMULARY MEDICATION 1 EA EA (Dulaglutide (Trulicity) 0.75 MG) SQ SCH (09:30)
== END 2017-03-11 12:18 | disposition home or self-care (01) | DRG 190 ==
LOC: EDUNIT# 12:57 → ER 12:59 → 4TH 13:49
PROVIDERS: ADMIT Family Medicine; ATTEND Family Medicine
DX: J44.0 Chronic obstructive pulmonary disease with (acute) lower respiratory infection (principal); J18.9 Pneumonia, unspecified organism; I25.10 Atherosclerotic heart disease of native coronary artery without angina pectoris; E11.9 Type 2 diabetes mellitus without complications; E78.5 Hyperlipidemia, unspecified; I10 Essential (primary) hypertension; I48.0 Paroxysmal atrial fibrillation; K21.9 Gastro-esophageal reflux disease without esophagitis; E83.42 Hypomagnesemia; D64.9 Anemia, unspecified; R91.8 Other nonspecific abnormal finding of lung field; F41.9 Anxiety disorder, unspecified; F32.9 Major depressive disorder, single episode, unspecified
CPT/HCPCS: 36415; 71020; 71260; 80048; 80053; 80061; 80202; 82274; 83605; 83735; 83874; 83880; 84484; 85007; 85025; 85027; 85610; 85730; 87040; 93005; 93041; 94640; 94664; 94760; 96367

== ENCOUNTER 2017-03-26 05:38 | Outpatient (CLI) | payer MEDICARE ==
[~2017-03-26] VITALS: Ht 167.6 cm; Wt 79.9 kg
[~2017-03-26 05:38] MED LIST changes: +AMOX-358 PO; +DOXY100C2 PO; +HYDR-3812 PO; +MELO7.5T46 PO; +ROSU20TA28 PO
== END 2017-03-26 10:57 ==
LOC: PREOP 05:38
PROVIDERS: ATTEND Surgery
DX: Z01.818 Encounter for other preprocedural examination (principal); K92.1 Melena

== ENCOUNTER 2017-03-27 08:36 | Day surgery (SDC) | payer MEDICARE ==
[~2017-03-27] VITALS: Ht 167.6 cm; Wt 79.9 kg
[2017-03-27 08:55] VITALS: BP 140/79
[2017-03-27] MEDS ORDERED: NS IV 500 ML 500 ML IV PRN (09:00)
[2017-03-27] MEDS ORDERED: NALOXONE 0.4 MG/ML 1 ML (NARCAN) VIAL IVP PRN (09:00)
[2017-03-27] MEDS ORDERED: FLUMAZENIL (ROMAZICON) 0.1 MG/ML 5 ML VIAL INJ PRN (09:00)
--- NOTE | 2017-03-27 09:55 | Conscious Sedation/ASA ---
Conscious Sedation Pre-Proced Time Reviewed: 09:55 ASA Class: 2 Airway Mallampati Classification: ([place] appropriate class) I. II. III, IV Lungs Heart ASA score ASA 1: a normal healthy patient ASA 2: a patient with a mild systemic disease (mid diabetes, controlled hypertension, obesity ASA 3: a patient with a severe systemic disease that limits activity (angina , COPD, prior Myocardial infarction) ASA 4: a patient with an incapacitating disease that is a constant threat to life (CHF, renal failure) ASA 5: a moribund patient not expected to survive 24 hrs. (ruptured aneurysm) ASA 6: a declared brain patient whose organs are being harvested. For emergent operations, add the letter E after the classification Grade 2 Sedation Plan: Discussed options with patient/fam Note The patient is an appropriate candidate to undergo the planned procedure, sedation, and anesthesia. The patient immediately re-assessed prior to indication. SHEREEN VORA MD Mar 27, 2017 9:55 am
[2017-03-27] MEDS ORDERED: MIDAZOLAM 2 MG/2 ML (VERSED) VIAL ONE ×4 (10:43→10:44)
[2017-03-27] MEDS ORDERED: fentaNYL INJECTION 100 MCG/2 ML AMP ONE ×2 (10:43)
[2017-03-27] MEDS: fentaNYL INJECTION 100 MCG/2 ML AMP IVP PRN ×2 (10:47→10:50)
[2017-03-27] MEDS: MIDAZOLAM 2 MG/2 ML (VERSED) VIAL IVP PRN ×2 (10:49→10:51)
--- NOTE | 2017-03-27 11:10 | Endoscopy Procedure Report ---
Endoscopy Report Date: Mar 27, 2017 Preoperative Diagnosis: heme-positive stools. Personal history of polyps Study Performed: Colonoscopy Procedure Instrument: Colonoscope Endo Procedure/Findings Findings 1.: Polyp, Diverticulosis Recommendations: Recommendations: 1.: Colonscopy in 3 years Copy Copies To 1: ANTONIO GONZALEZ XAVIER M MD Mar 27, 2017 11:10 am
--- NOTE | 2017-03-27 11:11 | Discharge Inst-Simple/Standard ---
Discharge Inst-Standard Discharge Medications New, Converted or Re-Newed RX: Other Patient Instructions/Follow Up Plan of Care/Instructions/FU: repeat colonoscopy in 3 years Activity as Tolerated: Yes Discharge Diet: No Restrictions SHEREEN VORA MD Mar 27, 2017 11:11 am
[2017-03-27 11:25] VITALS: BP 117/71
[2017-03-27 11:55] VITALS: BP 135/89
[2017-03-27 12:30] VITALS: BP 135/89
--- NOTE | 2017-03-27 13:52 | OPERATIVE REPORT ---
DATE OF SERVICE: 03/27/2017 PROCEDURE: 1. Colonoscopy. 2. Polypectomy (hot biopsy x2). SURGEON: Shereen Vora MD INDICATION FOR PROCEDURE: This gentleman was found to have heme positive stools and therefore colonoscopy was felt to be reasonable. Informed consent was obtained after reviewing the procedure in detail. DESCRIPTION OF PROCEDURE: He was placed in left lateral decubitus position and his vital signs were monitored. Conscious sedation was achieved using Versed and fentanyl. Examination of the perianal area revealed external hemorrhoids and skin tags. Digital examination was otherwise unremarkable. The colonoscope was then introduced into the rectum and advanced all the way up to the cecum. The scope was then withdrawn slowly and the mucosa examined in a systematic fashion. FINDINGS: 1. Sigmoid diverticula without inflammation. 2. A 2 mm polyp at the hepatic flexure that was excised with hot biopsy forceps. 3. Two polyps 2 mm each, adjacent to each other along the right colon, almost close to the cecum. These were excised and sent off as one specimen. He tolerated the procedure well and was taken back to the nursing area in a stable condition. IMPRESSION: Heme positive stools. Small polyps excised. Recommend repeating in 3 years. Job ID: [id number] DocumentID: [id number] Dictated Date: 03/27/2017 11:09:06 Pharmacy Coordinator Date: 03/27/2017 13:09:46 Dictated By: SHEREEN VORA MD [facility]
== END 2017-03-27 12:30 | disposition home or self-care (01) ==
LOC: ENDO 08:36
PROVIDERS: ATTEND Surgery
DX: K92.1 Melena (principal); D12.3 Benign neoplasm of transverse colon; K64.4 Residual hemorrhoidal skin tags; I10 Essential (primary) hypertension; E11.9 Type 2 diabetes mellitus without complications; J44.9 Chronic obstructive pulmonary disease, unspecified; K21.9 Gastro-esophageal reflux disease without esophagitis; Z79.899 Other long term (current) drug therapy
CPT/HCPCS: 88305

== ENCOUNTER → 2017-04-22 | Outpatient (CLI) | payer MEDICARE, OTHER ==
[2017-04-22 08:31] LABS: BASOPHILS # (AUTO) 0.1 10^3/uL (0.0-0.1); BASOPHILS % (AUTO) 1 % (0-10); EOSINOPHILS # (AUTO) 0.5 10^3/uL (0.0-0.3); EOSINOPHILS % (AUTO) 7 % (0-10); LYMPHOCYTES # (AUTO) 1.9 X 10^3 (1.0-4.0); LYMPHOCYTES % (AUTO) 26 % (12-44); MEAN CORPUSCULAR HEMOGLOBIN 30 PG (25-34); MEAN CORPUSCULAR HGB CONC 33 G/DL (32-36); MEAN CORPUSCULAR VOLUME 90 FL (80-99); MONOCYTES # (AUTO) 0.9 X 10^3 (0.0-1.0); MONOCYTES % (AUTO) 12 % (0-12); NEUTROPHILS # (AUTO) 3.9 X 10^3 (1.8-7.8); NEUTROPHILS % (AUTO) 54 % (42-75); PLATELET COUNT 181 10^3/uL (130-400); RED BLOOD COUNT 4.72 10^6/uL (4.35-5.85); RED CELL DISTRIBUTION WIDTH 14.3 % (10.0-14.5); WHITE BLOOD COUNT 7.2 10^3/uL (4.3-11.0)
[2017-04-22 08:54] LABS: ALANINE AMINOTRANSFERASE 44 U/L (0-55); ALBUMIN 4.2 GM/DL (3.2-4.5); ANION GAP 11 MMOL/L (5-14); ASPARTATE AMINO TRANSFERASE 29 U/L (5-34); BAND NEUTROPHILS 1 %; BASOPHILS % (MANUAL) 1 %; BILIRUBIN,TOTAL 0.4 MG/DL (0.1-1.0); BLOOD UREA NITROGEN 19 MG/DL (7-18); BUN/CREATININE RATIO 27 (0-20); CALCIUM 9.9 MG/DL (8.5-10.1); CARBON DIOXIDE 25 MMOL/L (21-32); CHLORIDE 102 MMOL/L (98-107); EOSINOPHILS % (MANUAL) 4 %; ERYTHROCYTE SEDIMENTATION RATE 8 MM/HR (0-30); GFR ESTIMATED > 60; GLUCOSE 133 MG/DL (70-105); HEMOLYSIS 12 (-100-29); ICTERUS 0.4 (-100-1.9); LIPEMIA 3 (-100-49); LYMPHOCYTES % (MANUAL) 28 %; MYELOCYTES % 1 %; NEUTROPHILS % (MANUAL) 53 %; POTASSIUM 4.1 MMOL/L (3.6-5.0); REACTIVE LYMPHOCYTES 2 %; SODIUM 138 MMOL/L (135-145); TOTAL PROTEIN 7.3 GM/DL (6.4-8.2); hs C REACTIVE PROTEIN 0.79 MG/DL (0.00-0.50)
--- NOTE | 2017-04-22 10:28 | Diagnostic Imaging Report ---
PROCEDURE: CT chest without contrast. TECHNIQUE: Multiple contiguous axial images were obtained through the chest without the use of intravenous contrast. INDICATION: COPD. Pneumonia. Interstitial lung disease. COMPARISON: 03/09/2017. FINDINGS: There is a septal thickening and scarring seen in the lung bases similar to prior exams. Previous focal area of tree-in-bud opacity in the lateral posterior aspect of the right upper lobe appear improved. There is remaining areas of scarring also in the lingula. The pattern is note of the UIP with no subpleural honeycombing. The findings could be sequela of prior recurrent infections or aspiration. No solid consolidation or mass is seen. There are some nodular densities that appears to be related to scarring as well. The thoracic aorta is normal in caliber. The heart size is slightly prominent. There is no pericardial or pleural effusion. There is a right paraesophageal borderline sized lymph node measuring one CM in short axis similar to 07/29/2016 exam. No axillary lymphadenopathy. No hilar mass is evident along the unenhanced hilar vessels seen. The osseous structures demonstrate degenerative changes. The spleen is 15.8 x 6.2 cm in maximum axial dimensions, mild to moderate enlargement. This is slightly larger compared to 03/09/2017 exam. Diffuse hepatic steatosis and cholecystectomy clips are also seen. IMPRESSION: 1. Pulmonary nonspecific scarring predominantly in the lower lobes probably sequela of prior infections or possibly recurrent aspiration. 2. [id number] splenomegaly. 2. Hepatic steatosis. Dictated by: Dictated on workstation # [id number]
[2017-04-23 01:20] LABS: IGE DETAIL 45.9 IU/mL
[2017-04-23 06:53] LABS: INT IGE See Footnote
[2017-04-23 07:00] LABS: IMMUNOGLOBULIN IGA 197 mg/dL (71-263); IMMUNOGLOBULIN IGG 1142 mg/dL (672-1680)
[2017-04-24 06:47] LABS: ANCA PATTERN Not Indicated; ANTI NEUTROPHIL CYTOPLASM <1:20 (<1:20)
[2017-04-24 06:49] LABS: ANGIOTENSIN CONVERTING ENZYME <5 L U/L (9-67)
== END ==
LOC: RAD 08:01
PROVIDERS: ATTEND Nurse Practitioner Family
DX: J84.9 Interstitial pulmonary disease, unspecified (principal); J43.8 Other emphysema; J18.9 Pneumonia, unspecified organism
CPT/HCPCS: 36415; 71250; 80053; 82164; 82784; 82785; 85007; 85027; 85652; 86021; 86038; 86141

== ENCOUNTER 2017-05-02 13:12 | Emergency (ER) | payer MEDICARE ==
[~2017-05-02] VITALS: Ht 167.6 cm; Wt 85.3 kg
[2017-05-02] MEDS ORDERED: NS IV 1000 ML 1,000 ML IV SCH (14:00)
[2017-05-02 14:11] LABS: EOSINOPHILS % (AUTO) 1 % (0-10); LYMPHOCYTES % (AUTO) 18 % (12-44); MEAN CORPUSCULAR HEMOGLOBIN 29 PG (25-34); MEAN CORPUSCULAR HGB CONC 33 G/DL (32-36); MEAN CORPUSCULAR VOLUME 88 FL (80-99); MEAN PLATELET VOLUME 9.8 FL (7.4-10.4); MONOCYTES % (AUTO) 9 % (0-12); NEUTROPHILS % (AUTO) 71 % (42-75); PLATELET COUNT 278 10^3/uL (130-400); RED BLOOD COUNT 5.03 10^6/uL (4.35-5.85); RED CELL DISTRIBUTION WIDTH 14.7 % (10.0-14.5); WHITE BLOOD COUNT 13.4 10^3/uL (4.3-11.0)
[2017-05-02 14:12] LABS: BASOPHILS # (AUTO) 0.1 10^3/uL (0.0-0.1); BASOPHILS % (AUTO) 0 % (0-10); EOSINOPHILS # (AUTO) 0.2 10^3/uL (0.0-0.3); LYMPHOCYTES # (AUTO) 2.4 X 10^3 (1.0-4.0); MONOCYTES # (AUTO) 1.3 X 10^3 (0.0-1.0); NEUTROPHILS # (AUTO) 9.5 X 10^3 (1.8-7.8)
[2017-05-02 14:18] LABS: ALANINE AMINOTRANSFERASE 38 U/L (0-55); ALBUMIN 3.8 GM/DL (3.2-4.5); ANION GAP 10 MMOL/L (5-14); ASPARTATE AMINO TRANSFERASE 24 U/L (5-34); BILIRUBIN,TOTAL 0.4 MG/DL (0.1-1.0); BLOOD UREA NITROGEN 20 MG/DL (7-18); BUN/CREATININE RATIO 26; CALCIUM 9.9 MG/DL (8.5-10.1); CARBON DIOXIDE 21 MMOL/L (21-32); CHLORIDE 103 MMOL/L (98-107); CREATININE SERUM 0.76 MG/DL (0.60-1.30); GFR ESTIMATED > 60; GLUCOSE 244 MG/DL (70-105); POTASSIUM 4.1 MMOL/L (3.6-5.0); SODIUM 134 MMOL/L (135-145); TOTAL PROTEIN 7.2 GM/DL (6.4-8.2)
--- NOTE | 2017-05-02 14:22 | ED EENT ---
History of Present Illness General Chief Complaint: Abdominal/GI Problems Stated Complaint: DIARRHEA Nursing Triage Note: Pt c/o diarrhea and abd pain since 04/28 Source: patient Exam Limitations: no limitations History of Present Illness Time seen by provider: 14:21 Initial Comments After mother and sister to ER with watery diarrhea without blood or mucus for the past 4 days. He has diffuse abdominal pain. No fevers or chills. No nausea or vomiting. No history of this. Symptoms began improving yesterday but are still present Timing/Duration: gradual Severity: moderate Associated Symptoms: denies symptoms Allergies and Home Medications Allergies Coded Allergies: atorvastatin (Verified Allergy, Mild, 03/26/17) Patient states that his bones ached and he wasn't able to tolerate it. Home Medications Albuterol Sulfate 2.5 Mg/3 Ml Vial.neb, 2.5 MG IH Q4H PRN for SHORTNESS OF BREATH, (Reported) Allopurinol 300 Mg Tablet, 300 MG PO BID, (Reported) Budesonide/Formoterol Fumarate 10.2 Gm Hfa.aer.ad, 2 PUFF IH DAILY, (Reported) Diclofenac Sodium 100 Gm Gel..gram., TP QID PRN for GOUT PAIN, (Reported) Dulaglutide 0.75 Mg/0.5 Ml Pen.injctr, 0.75 MG SQ We, (Reported) Fenofibrate Nanocrystallized 145 Mg Tablet, 145 MG PO HS, (Reported) Fluoxetine HCl 20 Mg Capsule, 40 MG PO DAILY, (Reported) TAKES 2 (20MG) CAPSULES Fluticasone Propionate 16 Gm [place].susp, 1 SPRAY NS BID PRN for CONGESTION, ( Reported) Gabapentin 300 Mg Capsule, 300 MG PO TID, (Reported) Glimepiride 4 Mg Tablet, 4 MG PO DAILY, (Reported) Lisinopril/Hydrochlorothiazide 1 Each Tablet, 1 TAB PO HS, (Reported) Metformin HCl 1,000 Mg Tablet, 1,000 MG PO BID, (Reported) Metoprolol Succinate 25 Mg Tab.er.24h, 25 MG PO HS, (Reported) Montelukast Sodium 10 Mg Tablet, 10 MG PO HS, (Reported) [place] 3 Polyunsat Fatty Acids 1,000 Mg Cap, 1,000 MG PO BID, (Reported) Omeprazole 20 Mg Capsule.dr, 20 MG PO DAILY, (Reported) Potassium Gluconate 99 Mg Tablet, 99 MG PO DAILY, (Reported) Rosuvastatin Calcium 20 Mg Tablet, 20 MG PO HS, (Reported) Umeclidinium [place] 62.5 Mcg Blst.w.dev, 1 PUFF IH DAILY, (Reported) Review of Systems Constitutional: see HPI, No chills, No fever Eyes: No Symptoms Reported Ears: No Symptoms Reported Nose: no symptoms reported Mouth: no symptoms reported Throat: no symptoms reported Respiratory: no symptoms reported Cardiovascular: no symptoms reported Gastrointestinal: abdominal pain Musculoskeletal: no symptoms reported Skin: no symptoms reported Past Chvhoib-Fzrgxe-Bvcqxk Hx Patient Social History Alcohol Use: Denies Use Recreational Drug Use: No 2nd Hand Smoke Exposure: Yes Recent Foreign Travel: No Contact w/Someone Who Travel: No Recent Infectious Disease Expo: No Recent Hopitalizations: No Immunizations Up To Date Tetanus Booster (TDap): Unknown PED Vaccines UTD: No Date of Pneumonia Vaccine: Jul 28, 2012 Date of Influenza Vaccine: Jul 30, 2016 Seasonal Allergies Seasonal Allergies: Yes Surgeries HX Surgeries: Yes (UMB HERNIA,APPENDIX, EYES AT CHILDHOOD) Surgeries: Abdominal, Appendectomy, Cardiac, Coronary Stent, Eye Surgery, Gallbladder, Renal Respiratory Hx Respiratory Disorders: Yes ("pigeon's disease") Respiratory Disorders: Sleep Apnea Cardiovascular Hx Cardiac Disorders: Yes Cardiac Disorders: Atrial Fibrillation, Coronary Artery Disease, High Cholesterol, Hypertension Neurological Hx Neurological Disorders: No Reproductive System Hx Reproductive Disorders: No Sexually Transmitted Disease: No HIV/AIDS: No Genitourinary Hx Genitourinary Disorders: No Genitourinary Disorders: Kidney Stones Gastrointestinal Hx Gastrointestinal Disorders: Yes (BLOOD IN STOOLS) Gastrointestinal Disorders: Gastroesophageal Reflux, Polyps Musculoskeletal Hx Musculoskeletal Disorders: Yes Musculoskeletal Disorders: Degenerate Disk Disease, Arthritis, Chronic Back Pain, Gout Endocrine Hx Endocrine Disorders: Yes Endocrine Disorders: Diabetes, Non-Insulin dep HEENT HX ENT Disorders: No Loss of Vision: Denies Cancer Hx Cancer: No Psychosocial Hx Psychiatric Problems: Yes Behavioral Health Disorders: Anxiety, Depression Integumentary HX Skin/Integumentary Disorder: No Blood Transfusions Hx Blood Disorders: No Adverse Reaction to a Blood Tr: No Family Medical History Significant Family History: Lung Disease Family Medial History: Arthritis 19 FATHER Respiratory disorder 19 FATHER 19 MOTHER Thyroid disease 19 MOTHER No Family History of: AIDS Abdominal aortic aneurysm Alcoholism Alzheimer's disease Asthma Cardiovascular disease Dementia Diabetes mellitus Drug abuse Hypertension Kidney disease Myocardial infarction Parkinson's disease Psychosocial problem Seizure disorder Physical Exam Vital Signs Vital Sign - Last 12Hours 05/02/17 13:40 Temp 98.2 Pulse 94 Resp 18 B/P (MAP) 155/95 Pulse Ox 95 O2 Delivery Room Air General Appearance: WD/WN, no apparent distress Eyes: bilateral eye EOMI (1), bilateral eye PERRL, bilateral eye normal inspection Ears: bilateral ear TM normal, bilateral ear auricle normal, bilateral ear canal normal Mouth/Throat: normal mouth inspection, pharynx normal Neck: non-tender, full range of motion Cardiovascular: regular rate, rhythm, no murmur Respiratory: no respiratory distress, no accessory muscle use Gastrointestinal: normal bowel sounds, non tender, soft Neurologic/Psychiatric: alert, normal mood/affect, oriented x 3 Skin: normal color, warm/dry Progress/Results/Core Measures Results/Orders Lab Results Laboratory Tests Test 05/02/17 13:48 Range/Units White Blood Count 13.4 H 4.3-11.0 10^3/uL Red Blood Count 5.03 4.35-5.85 10^6/uL Hemoglobin 14.6 13.3-17.7 G/DL Hematocrit 44 40-54 % Mean Corpuscular Volume 88 80-99 FL Mean Corpuscular Hemoglobin 29 25-34 PG Mean Corpuscular Hemoglobin Concent 33 32-36 G/DL Red Cell Distribution Width 14.7 H 10.0-14.5 % Platelet Count 278 130-400 10^3/uL Mean Platelet Volume 9.8 7.4-10.4 FL Neutrophils (%) (Auto) 71 42-75 % Lymphocytes (%) (Auto) 18 12-44 % Monocytes (%) (Auto) 9 0-12 % Eosinophils (%) (Auto) 1 0-10 % Basophils (%) (Auto) 0 0-10 % Neutrophils # (Auto) 9.5 H 1.8-7.8 X 10^3 Lymphocytes # (Auto) 2.4 1.0-4.0 X 10^3 Monocytes # (Auto) 1.3 H 0.0-1.0 X 10^3 Eosinophils # (Auto) 0.2 0.0-0.3 10^3/uL Basophils # (Auto) 0.1 0.0-0.1 10^3/uL Sodium Level 134 L 135-145 MMOL/L Potassium Level 4.1 3.6-5.0 MMOL/L Chloride Level 103 98-107 MMOL/L Carbon Dioxide Level 21 21-32 MMOL/L Anion Gap 10 5-14 MMOL/L Blood Urea Nitrogen 20 H 7-18 MG/DL Creatinine 0.76 0.60-1.30 MG/DL Estimat Glomerular Filtration Rate > 60 BUN/Creatinine Ratio 26 Glucose Level 244 H 70-105 MG/DL Calcium Level 9.9 8.5-10.1 MG/DL Total Bilirubin 0.4 0.1-1.0 MG/DL Aspartate Amino Transf (AST/SGOT) 24 5-34 U/L Alanine Aminotransferase (ALT/SGPT) 38 0-55 U/L Alkaline Phosphatase 65 40-136 U/L Total Protein 7.2 6.4-8.2 GM/DL Albumin 3.8 3.2-4.5 GM/DL My Orders Orders - AMELIE WEEKS [employer]TER[employer] EXAMINER Cbc With Automated Diff (05/02/17 13:56) Comprehensive Metabolic Panel (05/02/17 13:56) Saline Lock/Iv-Start (05/02/17 13:57) Ns Iv 1000 Ml (Sodium Chloride 0.9%) (05/02/17 14:00) Ct Abdomen/Pelvis W (05/02/17 14:20) Iohexol Injection (Omnipaque 350 Mg/Ml 1 (05/02/17 15:15) Sodium Chloride Flush (Catheter Flush Sy (05/02/17 15:15) Ns (Ivpb) (Sodium Chloride 0.9% Ivpb Bag (05/02/17 15:15) Medications Given in ED Current Medications Medications Dose Ordered Sig/Shabana Route Start Time Stop Time Status Last Admin Dose Admin Iohexol 100 ml ONCE ONCE IV 05/02/17 15:15 05/02/17 15:31 DC 05/02/17 15:16 100 ML Sodium Chloride 100 ml ONCE ONCE IV 05/02/17 15:15 05/02/17 15:31 DC 05/02/17 15:16 80 ML Vital Signs/I&O Vital Sign - Last 12Hours 05/02/17 13:40 Temp 98.2 Pulse 94 Resp 18 B/P (MAP) 155/95 Pulse Ox 95 O2 Delivery Room Air Blood Pressure Mean: 115 Diagnostic Imaging Diagonstic Imaging: CT Comments NAME: AMIRA FREEMAN [facility] REC#: [id number] PT STATUS: REG ER : 1955 PHYSICIAN: AMELIE WEEKS APRN ADMIT DATE: 05/02/17/ER Draft Date of Exam:05/02/17 CT ABDOMEN/PELVIS W PROCEDURE: CT abdomen and pelvis with contrast. TECHNIQUE: Multiple contiguous axial images were obtained through the abdomen and pelvis after administration of intravenous contrast. INDICATION: Diarrhea. COMPARISON: CT chest dated 04/22/2017. FINDINGS: Included views of the lung bases show course interstitial thickening bilaterally. CT ABDOMEN: There is diffuse moderate abnormal thickening of the colonic wall. There is also mild stranding of the pericolonic fat. There is no pneumatosis, pneumoperitoneum, nor portal venous gas. There may be trace free fluid within the right paracolic gutter. There is no loculated air-fluid collection seen throughout the abdomen. Small bowel loops are nondistended. Normal appendix cannot be adequately identified, but appears to be surgically absent. The kidneys, adrenal glands, pancreas, and liver have an unremarkable postcontrast CT appearance. Spleen is mildly enlarged, but no focal splenic lesions are identified. No abnormal mesenteric or retroperitoneal adenopathy is seen. There is small fat containing periumbilical hernia. [place] measures approximately 2 cm in transverse dimension. There is mild scattered calcified and noncalcified aortic and arterial atherosclerosis. Bony structures show age-related degenerative changes. CT PELVIS: Urinary bladder is grossly unremarkable. There is no loculated fluid collection, free fluid, nor free air within the pelvis. No abnormal adenopathy is seen. Bony structures show no acute abnormalities. IMPRESSION: 1. Moderate diffuse abnormal colonic wall thickening with stranding of the pericolonic fat. Findings are nonspecific, but can be seen with infectious or inflammatory colitis. Ischemic colitis is felt to be less likely. 2. Small amount of free fluid within the abdomen, but no loculated air-fluid collection, pneumoperitoneum, pneumatosis, nor portal venous gas. 3. Mild splenomegaly. No focal splenic lesions. Dictated on workstation # [id number] Dict: 05/02/17 1527 Trans: 05/02/17 1535 [id number] Interpreted by: KAYLI YANG Electronically signed by: Departure Impression Impression: Primary Impression: Infectious colitis Additional Impression: Contusion of abdominal wall Disposition: HOME, SELF-CARE Condition: Stable Departure-Patient Inst. Decision time for Depature: 15:42 Referrals: ANTONIO GONZALEZ DO (PCP) Primary Care Physician MARIBEL GARY (Family) Primary Care Physician Patient Instructions: NO INSTRUCTIONS GIVEN Add. Discharge Instructions: 1. Return to ER for any concerns 2. Antibiotics as directed 3. See your doctor next week All discharge instructions reviewed with patient and/or family. Voiced understanding. Scripts Metronidazole (Flagyl) 500 Mg Tablet 500 MG PO TID, #21 TAB Prov: AMELIE WEEKS [employer] EXAMINER 05/02/17 Ciprofloxacin HCl (Cipro) 500 Mg Tablet 500 MG PO BID, #14 TAB Prov: AMELIE WEEKS [employer]ATION EXAMINER 05/02/17 AMELIE WEEKS APRN May 02, 2017 14:22
[2017-05-02] MEDS ORDERED: IOHEXOL 350 MG/ML 100 ML (OMNIPAQUE 350) VIAL IV ONE (15:15)
[2017-05-02] MEDS ORDERED: NS 100 ML (IVPB) BAG IV ONE (15:15)
[2017-05-02] MEDS ORDERED: CATHETER FLUSH 10 ML SYR IV PRN (15:15)
--- NOTE | 2017-05-02 15:35 | Diagnostic Imaging Report ---
PROCEDURE: CT abdomen and pelvis with contrast. TECHNIQUE: Multiple contiguous axial images were obtained through the abdomen and pelvis after administration of intravenous contrast. INDICATION: Diarrhea. COMPARISON: CT chest dated 04/22/2017. FINDINGS: Included views of the lung bases show course interstitial thickening bilaterally. CT ABDOMEN: There is diffuse moderate abnormal thickening of the colonic wall. There is also mild stranding of the pericolonic fat. There is no pneumatosis, pneumoperitoneum, nor portal venous gas. There may be trace free fluid within the right paracolic gutter. There is no loculated air-fluid collection seen throughout the abdomen. Small bowel loops are nondistended. Normal appendix cannot be adequately identified, but appears to be surgically absent. The kidneys, adrenal glands, pancreas, and liver have an unremarkable postcontrast CT appearance. Spleen is mildly enlarged, but no focal splenic lesions are identified. No abnormal mesenteric or retroperitoneal adenopathy is seen. There is small fat containing periumbilical hernia. [place] measures approximately 2 cm in transverse dimension. There is mild scattered calcified and noncalcified aortic and arterial atherosclerosis. Bony structures show age-related degenerative changes. CT PELVIS: Urinary bladder is grossly unremarkable. There is no loculated fluid collection, free fluid, nor free air within the pelvis. No abnormal adenopathy is seen. Bony structures show no acute abnormalities. IMPRESSION: 1. Moderate diffuse abnormal colonic wall thickening with stranding of the pericolonic fat. Findings are nonspecific, but can be seen with infectious or inflammatory colitis. Ischemic colitis is felt to be less likely. 2. Small amount of free fluid within the abdomen, but no loculated air-fluid collection, pneumoperitoneum, pneumatosis, nor portal venous gas. 3. Mild splenomegaly. No focal splenic lesions. Dictated by: Dictated on workstation # [id number]
[2017-05-02] MEDS ORDERED: METR500T PO (15:43)
[2017-05-02] MEDS ORDERED: CIPR-225 PO (15:43)
[2017-05-02 15:52] VITALS: BP 155/95
--- OUTSIDE RECORDS SUMMARY | 2017-05-06 07:29 | XMS REPORT | Continuity of Care Document ---
Author Author [facility] of [facility] Address Unknown Phone Unavailable Allergies Active Description Code Type Severity Reaction Onset Reported/Identified Relationship to Patient Clinical Status Yes aspirin Drug Allergy 08/06/2011 Yes aspirin Drug Allergy N/A N/A 08/06/2011 Yes No Known Drug Allergies [id number] Drug Allergy Unknown N/ A 01/11/2016 Yes atorvastatin [id number] Drug Allergy Mild N/A 03/26/2017 Medications Problems Date Dx Coded Attending Type Code Diagnosis Diagnosed By 08/06/2011 278.00 OBESITY 08/06/2011 515 POSTINFLAMMATORY PULMONARY FIBROSIS 08/06/2011 278.00 OBESITY 08/06/2011 515 POSTINFLAMMATORY PULMONARY FIBROSIS 08/06/2011 278.00 OBESITY 08/06/2011 515 POSTINFLAMMATORY PULMONARY FIBROSIS 08/06/2011 278.00 OBESITY 08/06/2011 515 POSTINFLAMMATORY PULMONARY FIBROSIS 08/06/2011 MAXX JIMENEZ 278.00 OBESITY 08/06/2011 MAXX JIMENEZ 515 POSTINFLAMMATORY PULMONARY FIBROSIS 08/06/2011 278.00 OBESITY 08/06/2011 515 POSTINFLAMMATORY PULMONARY FIBROSIS 08/06/2011 MARIBEL GARY APRN 278.00 OBESITY 08/06/2011 MARIBEL GARY APRN 515 POSTINFLAMMATORY PULMONARY FIBROSIS 08/06/2011 278.00 OBESITY 08/06/2011 515 POSTINFLAMMATORY PULMONARY FIBROSIS 08/06/2011 278.00 OBESITY 08/06/2011 515 POSTINFLAMMATORY PULMONARY FIBROSIS 08/06/2011 278.00 OBESITY 08/06/2011 515 POSTINFLAMMATORY PULMONARY FIBROSIS 08/06/2011 ANTONIO GONZALEZ DO 278.00 OBESITY 08/06/2011 ANTONIO GONZALEZ DO 515 POSTINFLAMMATORY PULMONARY FIBROSIS 08/06/2011 BISI DOMINGUEZ MD 278.00 OBESITY 08/06/2011 BISI DOMINGUEZ MD 515 POSTINFLAMMATORY PULMONARY FIBROSIS 08/06/2011 EATON CABIN CLEANING SUPERVISOR, MARIBEL L 278.00 OBESITY 08/06/2011 EATON CABIN CLEANING SUPERVISOR, MARIBEL L 515 POSTINFLAMMATORY PULMONARY FIBROSIS 08/06/2011 GONZALEZ DO, ANTONIO K 278.00 OBESITY 08/06/2011 GONZALEZ DO, ANTONIO K 515 POSTINFLAMMATORY PULMONARY FIBROSIS 08/06/2011 EATON CABIN CLEANING SUPERVISOR, MARIBEL L 278.00 OBESITY 08/06/2011 EATON CABIN CLEANING SUPERVISOR, MARIBEL L 515 POSTINFLAMMATORY PULMONARY FIBROSIS 08/06/2011 GONZALEZ DO, ANTONIO K 278.00 OBESITY 08/06/2011 GONZALEZ DO, ANTONIO K 515 POSTINFLAMMATORY PULMONARY FIBROSIS 08/06/2011 GONZALEZ DO, ANTONIO K 278.00 OBESITY 08/06/2011 GONZALEZ DO, ANTONIO K 515 POSTINFLAMMATORY PULMONARY FIBROSIS 08/06/2011 EATON CABIN CLEANING SUPERVISOR, MARIBEL L 278.00 OBESITY 08/06/2011 EATON CABIN CLEANING SUPERVISOR, MARIBEL L 515 POSTINFLAMMATORY PULMONARY FIBROSIS 08/06/2011 EATON CABIN CLEANING SUPERVISOR, MARIBEL L 278.00 OBESITY 08/06/2011 EATON CABIN CLEANING SUPERVISOR, MARIBEL L 515 POSTINFLAMMATORY PULMONARY FIBROSIS 08/06/2011 GONZALEZ DO, ANTONIO K 278.00 OBESITY 08/06/2011 GONZALEZ DO, ANTONIO K 515 POSTINFLAMMATORY PULMONARY FIBROSIS 08/06/2011 GONZALEZ DO, ANTONIO K 278.00 OBESITY 08/06/2011 GONZALEZ DO, ANTONIO K 515 POSTINFLAMMATORY PULMONARY FIBROSIS 08/06/2011 JACE DOMÍNGUEZ, ALI 278.00 OBESITY 08/06/2011 JACE DOMÍNGUEZ ALI 515 POSTINFLAMMATORY PULMONARY FIBROSIS 08/06/2011 EATON CABIN CLEANING SUPERVISOR, MARIBEL L 278.00 OBESITY 08/06/2011 EATON CABIN CLEANING SUPERVISOR, MARIBEL L 515 POSTINFLAMMATORY PULMONARY FIBROSIS 08/21/2011 250.00 DIABETES MELLITUS TYPE 2 - UNCOMPLICATED, CONTROLLED 08/21/2011 401.1 ESSENTIAL HYPERTENSION BENIGN 08/21/2011 493.00 ASTHMA EXTRINSIC 08/21/2011 530.81 ESOPHAGEAL REFLUX 08/21/2011 682.3 SKIN ABSCESS OF THE ARM 08/21/2011 250.00 DIABETES MELLITUS TYPE 2 - UNCOMPLICATED, CONTROLLED 08/21/2011 401.1 ESSENTIAL HYPERTENSION BENIGN 08/21/2011 493.00 ASTHMA EXTRINSIC 08/21/2011 530.81 ESOPHAGEAL REFLUX 08/21/2011 682.3 SKIN ABSCESS OF THE ARM 08/21/2011 250.00 DIABETES MELLITUS TYPE 2 - UNCOMPLICATED, CONTROLLED 08/21/2011 401.1 ESSENTIAL HYPERTENSION BENIGN 08/21/2011 493.00 ASTHMA EXTRINSIC 08/21/2011 530.81 ESOPHAGEAL REFLUX 08/21/2011 682.3 SKIN ABSCESS OF THE ARM 08/21/2011 250.00 DIABETES MELLITUS TYPE 2 - UNCOMPLICATED, CONTROLLED 08/21/2011 401.1 ESSENTIAL HYPERTENSION BENIGN 08/21/2011 493.00 ASTHMA EXTRINSIC 08/21/2011 530.81 ESOPHAGEAL REFLUX 08/21/2011 682.3 SKIN ABSCESS OF THE ARM 08/21/2011 BAQIR, MAXX 250.00 DIABETES MELLITUS TYPE 2 - UNCOMPLICATED, CONTROLLED 08/21/2011 BAQIR, MAXX 401.1 ESSENTIAL HYPERTENSION BENIGN 08/21/2011 BAQIR, MAXX 493.00 ASTHMA EXTRINSIC 08/21/2011 BAQIR, MAXX 530.81 ESOPHAGEAL REFLUX 08/21/2011 BAQIR, MAXX 682.3 SKIN ABSCESS OF THE ARM 08/21/2011 250.00 DIABETES MELLITUS TYPE 2 - UNCOMPLICATED, CONTROLLED 08/21/2011 401.1 ESSENTIAL HYPERTENSION BENIGN 08/21/2011 493.00 ASTHMA EXTRINSIC 08/21/2011 530.81 ESOPHAGEAL REFLUX 08/21/2011 682.3 SKIN ABSCESS OF THE ARM 08/21/2011 EATON CABIN CLEANING SUPERVISOR, MARIBEL L 250.00 DIABETES MELLITUS TYPE 2 - UNCOMPLICATED , CONTROLLED 08/21/2011 EATON DANIELLE MARIBEL L 401.1 ESSENTIAL HYPERTENSION BENIGN 08/21/2011 ABDIRAHMAN SANTOS, MARIBEL L 493.00 ASTHMA EXTRINSIC 08/21/2011 EATON DANIELLE, MARIBEL L 530.81 ESOPHAGEAL REFLUX 08/21/2011 EATON CABIN CLEANING SUPERVISOR, MARIBEL L 682.3 SKIN ABSCESS OF THE ARM 08/21/2011 250.00 DIABETES MELLITUS TYPE 2 - UNCOMPLICATED, CONTROLLED 08/21/2011 401.1 ESSENTIAL HYPERTENSION BENIGN 08/21/2011 493.00 ASTHMA EXTRINSIC 08/21/2011 530.81 ESOPHAGEAL REFLUX 08/21/2011 682.3 SKIN ABSCESS OF THE ARM 08/21/2011 250.00 DIABETES MELLITUS TYPE 2 - UNCOMPLICATED, CONTROLLED 08/21/2011 401.1 ESSENTIAL HYPERTENSION BENIGN 08/21/2011 493.00 ASTHMA EXTRINSIC 08/21/2011 530.81 ESOPHAGEAL REFLUX 08/21/2011 682.3 SKIN ABSCESS OF THE ARM 08/21/2011 250.00 DIABETES MELLITUS TYPE 2 - UNCOMPLICATED, CONTROLLED 08/21/2011 401.1 ESSENTIAL HYPERTENSION BENIGN 08/21/2011 493.00 ASTHMA EXTRINSIC 08/21/2011 530.81 ESOPHAGEAL REFLUX 08/21/2011 682.3 SKIN ABSCESS OF THE ARM 08/21/2011 GONZALEZ DO, ANTONIO K 250.00 DIABETES MELLITUS TYPE 2 - UNCOMPLICATED, CONTROLLED 08/21/2011 GONZALEZ DO, ANTONIO K 401.1 ESSENTIAL HYPERTENSION BENIGN 08/21/2011 GONZALEZ DO, ANTONIO K 493.00 ASTHMA EXTRINSIC 08/21/2011 GONZALEZ DO, ANTONIO K 530.81 ESOPHAGEAL REFLUX 08/21/2011 GONZALEZ DO, ANTONIO K 682.3 SKIN ABSCESS OF THE ARM 08/21/2011 JACE DOMÍNGUEZ, ALI 250.00 DIABETES MELLITUS TYPE 2 - UNCOMPLICATED, CONTROLLED 08/21/2011 JACE DOMÍNGUEZ, ALI 401.1 ESSENTIAL HYPERTENSION BENIGN 08/21/2011 JACE DOMÍNGUEZ ALI 493.00 ASTHMA EXTRINSIC 08/21/2011 JACE DOMÍNGUEZ ALI 530.81 ESOPHAGEAL REFLUX 08/21/2011 JACE DOMÍNGUEZ ALI 682.3 SKIN ABSCESS OF THE ARM 08/21/2011 EATON CABIN CLEANING SUPERVISOR, MARIBEL L 250.00 DIABETES MELLITUS TYPE 2 - UNCOMPLICATED , CONTROLLED 08/21/2011 EATON CABIN CLEANING SUPERVISOR, MARIBEL L 401.1 ESSENTIAL HYPERTENSION BENIGN 08/21/2011 EATON CABIN CLEANING SUPERVISOR, MARIBEL L 493.00 ASTHMA EXTRINSIC 08/21/2011 EATON CABIN CLEANING SUPERVISOR, MARIBEL L 530.81 ESOPHAGEAL REFLUX 08/21/2011 EATON CABIN CLEANING SUPERVISOR, MARIBEL L 682.3 SKIN ABSCESS OF THE ARM 08/21/2011 GONZALEZ DO, ANTONIO K 250.00 DIABETES MELLITUS TYPE 2 - UNCOMPLICATED, CONTROLLED 08/21/2011 GONZALEZ DO, ANTONIO K 401.1 ESSENTIAL HYPERTENSION BENIGN 08/21/2011 GONZALEZ DO, ANTONIO K 493.00 ASTHMA EXTRINSIC 08/21/2011 GONZALEZ DO, ANTONIO K 530.81 ESOPHAGEAL REFLUX 08/21/2011 GONZALEZ DO, ANTONIO K 682.3 SKIN ABSCESS OF THE ARM 08/21/2011 EATON CABIN CLEANING SUPERVISOR, MARIBEL L 250.00 DIABETES MELLITUS TYPE 2 - UNCOMPLICATED , CONTROLLED 08/21/2011 EATON CABIN CLEANING SUPERVISOR, MARIBEL L 401.1 ESSENTIAL HYPERTENSION BENIGN 08/21/2011 EATON CABIN CLEANING SUPERVISOR, MARIBEL L 493.00 ASTHMA EXTRINSIC 08/21/2011 EATON CABIN CLEANING SUPERVISOR, MARIBEL L 530.81 ESOPHAGEAL REFLUX 08/21/2011 EATON CABIN CLEANING SUPERVISOR, MARIBEL L 682.3 SKIN ABSCESS OF THE ARM 08/21/2011 GONZALEZ DO, ANTONIO K 250.00 DIABETES MELLITUS TYPE 2 - UNCOMPLICATED, CONTROLLED 08/21/2011 GONZALEZ DO, ANTONIO K 401.1 ESSENTIAL HYPERTENSION BENIGN 08/21/2011 GONZALEZ DO, ANTONIO K 493.00 ASTHMA EXTRINSIC 08/21/2011 GONZALEZ DO, ANTONIO K 530.81 ESOPHAGEAL REFLUX 08/21/2011 GONZALEZ DO, ANTONIO K 682.3 SKIN ABSCESS OF THE ARM 08/21/2011 GONZALEZ DO, ANTONIO K 250.00 DIABETES MELLITUS TYPE 2 - UNCOMPLICATED, CONTROLLED 08/21/2011 GONZALEZ DO, ANTONIO K 401.1 ESSENTIAL HYPERTENSION BENIGN 08/21/2011 GONZALEZ DO, ANTONIO K 493.00 ASTHMA EXTRINSIC 08/21/2011 GONZALEZ DO, ANTONIO K 530.81 ESOPHAGEAL REFLUX 08/21/2011 GONZALEZ DO, ANTONIO K 682.3 SKIN ABSCESS OF THE ARM 08/21/2011 EATON CABIN CLEANING SUPERVISOR, MARIBEL L 250.00 DIABETES MELLITUS TYPE 2 - UNCOMPLICATED , CONTROLLED 08/21/2011 EATON CABIN CLEANING SUPERVISOR, MARIBEL L 401.1 ESSENTIAL HYPERTENSION BENIGN 08/21/2011 EATON CABIN CLEANING SUPERVISOR, MARIBEL L 493.00 ASTHMA EXTRINSIC 08/21/2011 EATON CABIN CLEANING SUPERVISOR, MARIBEL L 530.81 ESOPHAGEAL REFLUX 08/21/2011 EATON CABIN CLEANING SUPERVISOR, MARIBEL L 682.3 SKIN ABSCESS OF THE ARM 08/21/2011 EATON CABIN CLEANING SUPERVISOR, MARIBEL L 250.00 DIABETES MELLITUS TYPE 2 - UNCOMPLICATED , CONTROLLED 08/21/2011 EATON CABIN CLEANING SUPERVISOR, MARIBEL L 401.1 ESSENTIAL HYPERTENSION BENIGN 08/21/2011 EATON CABIN CLEANING SUPERVISOR, MARIBEL L 493.00 ASTHMA EXTRINSIC 08/21/2011 EATON CABIN CLEANING SUPERVISOR, MARIBEL L 530.81 ESOPHAGEAL REFLUX 08/21/2011 EATON CABIN CLEANING SUPERVISOR, MARIBEL L 682.3 SKIN ABSCESS OF THE ARM 08/21/2011 GONZALEZ DO, ANTONIO K 250.00 DIABETES MELLITUS TYPE 2 - UNCOMPLICATED, CONTROLLED 08/21/2011 GONZALEZ DO, ANTONIO K 401.1 ESSENTIAL HYPERTENSION BENIGN 08/21/2011 GONZALEZ DO, ANTONIO K 493.00 ASTHMA EXTRINSIC 08/21/2011 GONZALEZ DO, ANTONIO K 530.81 ESOPHAGEAL REFLUX 08/21/2011 GONZALEZ DO, ANTONIO K 682.3 SKIN ABSCESS OF THE ARM 08/21/2011 GONZALEZ DO, ANTONIO K 250.00 DIABETES MELLITUS TYPE 2 - UNCOMPLICATED, CONTROLLED 08/21/2011 GONZALEZ DO, ANTONIO K 401.1 ESSENTIAL HYPERTENSION BENIGN 08/21/2011 GONZALEZ DO, ANTONIO K 493.00 ASTHMA EXTRINSIC 08/21/2011 GONZALEZ DO, ANTONIO K 530.81 ESOPHAGEAL REFLUX 08/21/2011 GONZALEZ DO, ANTONIO K 682.3 SKIN ABSCESS OF THE ARM 08/21/2011 BISI DOMINGUEZ MD 250.00 DIABETES MELLITUS TYPE 2 - UNCOMPLICATED, CONTROLLED 08/21/2011 JACE DOMÍNGUEZ ALI 401.1 ESSENTIAL HYPERTENSION BENIGN 08/21/2011 JACE DOMÍNGUEZ ALI 493.00 ASTHMA EXTRINSIC 08/21/2011 JACE DOMÍNGUEZ, ALI 530.81 ESOPHAGEAL REFLUX 08/21/2011 BISI DOMINGUEZ MD 682.3 SKIN ABSCESS OF THE ARM 08/21/2011 EATON CABIN CLEANING SUPERVISOR, MARIBEL L 250.00 DIABETES MELLITUS TYPE 2 - UNCOMPLICATED , CONTROLLED 08/21/2011 EATON CABIN CLEANING SUPERVISOR, MARIBEL L 401.1 ESSENTIAL HYPERTENSION BENIGN 08/21/2011 EATON CABIN CLEANING SUPERVISOR, MARIBEL L 493.00 ASTHMA EXTRINSIC 08/21/2011 EATON CABIN CLEANING SUPERVISOR, MARIBEL L 530.81 ESOPHAGEAL REFLUX 08/21/2011 EATON CABIN CLEANING SUPERVISOR, MARIBEL L 682.3 SKIN ABSCESS OF THE ARM 10/04/2011 780.99 loss of pleasure from usual activities (anhedonia) 10/04/2011 780.99 loss of pleasure from usual activities (anhedonia) 10/04/2011 780.99 loss of pleasure from usual activities (anhedonia) 10/04/2011 780.99 loss of pleasure from usual activities (anhedonia) 10/04/2011 MAXX JIMENEZ 780.99 loss of pleasure from usual activities (anhedonia ) 10/04/2011 780.99 loss of pleasure from usual activities (anhedonia) 10/04/2011 EATJACKIE CABIN CLEANING SUPERVISOR, MARIBEL L 780.99 loss of pleasure from usual activities ( anhedonia) 10/04/2011 780.99 loss of pleasure from usual activities (anhedonia) 10/04/2011 780.99 loss of pleasure from usual activities (anhedonia) 10/04/2011 780.99 loss of pleasure from usual activities (anhedonia) 10/04/2011 CARLOS BENSON ANTONIO K 780.99 loss of pleasure from usual activities ( anhedonia) 10/04/2011 BISI DOMINGUEZ MD 780.99 loss of pleasure from usual activities ( anhedonia) 10/04/2011 EATON CABIN CLEANING SUPERVISORMARIBEL Delgadillo L 780.99 loss of pleasure from usual activities ( anhedonia) 10/04/2011 GONZALEZ DO, ANTONIO K 780.99 loss of pleasure from usual activities ( anhedonia) 10/04/2011 EATON CABIN CLEANING SUPERVISORBISIMARIBEL L 780.99 loss of pleasure from usual activities ( anhedonia) 10/04/2011 GONZALEZ DO, ANTONIO K 780.99 loss of pleasure from usual activities ( anhedonia) 10/04/2011 GONZALEZ DO, ANTONIO K 780.99 loss of pleasure from usual activities ( anhedonia) 10/04/2011 EATON CABIN CLEANING SUPERVISOR, MARIBEL L 780.99 loss of pleasure from usual activities ( anhedonia) 10/04/2011 EATON CABIN CLEANING SUPERVISOR, MARIBEL L 780.99 loss of pleasure from usual activities ( anhedonia) 10/04/2011 GONZALEZ DO, ANTONIO K 780.99 loss of pleasure from usual activities ( anhedonia) 10/04/2011 GONZALEZ DO, ANTONIO K 780.99 loss of pleasure from usual activities ( anhedonia) 10/04/2011 BISI DOMINGUEZ MD 780.99 loss of pleasure from usual activities ( anhedonia) 10/04/2011 EATON MARIBEL SANTOS L 780.99 loss of pleasure from usual activities ( anhedonia) 11/08/2011 372.00 CONJUNCTIVITIS ACUTE BOTH EYES 11/08/2011 372.00 CONJUNCTIVITIS ACUTE BOTH EYES 11/08/2011 372.00 CONJUNCTIVITIS ACUTE BOTH EYES 11/08/2011 372.00 CONJUNCTIVITIS ACUTE BOTH EYES 11/08/2011 MAXX JIMENEZ 372.00 CONJUNCTIVITIS ACUTE BOTH EYES 11/08/2011 372.00 CONJUNCTIVITIS ACUTE BOTH EYES 11/08/2011 MARIBEL GARY APRN 372.00 CONJUNCTIVITIS ACUTE BOTH EYES 11/08/2011 372.00 CONJUNCTIVITIS ACUTE BOTH EYES 11/08/2011 372.00 CONJUNCTIVITIS ACUTE BOTH EYES 11/08/2011 372.00 CONJUNCTIVITIS ACUTE BOTH EYES 11/08/2011 ANTONIO GONZALEZ DO 372.00 CONJUNCTIVITIS ACUTE BOTH EYES 11/08/2011 BISI DOMINGUEZ MD 372.00 CONJUNCTIVITIS ACUTE BOTH EYES 11/08/2011 MARIBEL GARY APRN 372.00 CONJUNCTIVITIS ACUTE BOTH EYES 11/08/2011 GONZALEZ DO, ANTONIO K 372.00 CONJUNCTIVITIS ACUTE BOTH EYES 11/08/2011 EATJACKIE SANTOS MARIBEL L 372.00 CONJUNCTIVITIS ACUTE BOTH EYES 11/08/2011 GONZALEZ DO, ANTONIO K 372.00 CONJUNCTIVITIS ACUTE BOTH EYES 11/08/2011 GONZALEZ DO, ANTONIO K 372.00 CONJUNCTIVITIS ACUTE BOTH EYES 11/08/2011 EATJACKIE SANTOS MARIBEL L 372.00 CONJUNCTIVITIS ACUTE BOTH EYES 11/08/2011 EATJACKIE SANTOS MARIBEL L 372.00 CONJUNCTIVITIS ACUTE BOTH EYES 11/08/2011 GONZALEZ , ANTONIO K 372.00 CONJUNCTIVITIS ACUTE BOTH EYES 11/08/2011 GONZALEZ , ANTONIO K 372.00 CONJUNCTIVITIS ACUTE BOTH EYES 11/08/2011 BISI DOMINGUEZ MD 372.00 CONJUNCTIVITIS ACUTE BOTH EYES 11/08/2011 EATBISI MEJIA APRNSON L 372.00 CONJUNCTIVITIS ACUTE BOTH EYES 11/19/2011 296.32 MO DEPRESSIVE RECURRENT MODERATE 11/19/2011 296.32 MO DEPRESSIVE RECURRENT MODERATE 11/19/2011 296.32 MO DEPRESSIVE RECURRENT MODERATE 11/19/2011 296.32 MO DEPRESSIVE RECURRENT MODERATE 11/19/2011 MAXX JIMENEZ 296.32 MO DEPRESSIVE RECURRENT MODERATE 11/19/2011 296.32 MO DEPRESSIVE RECURRENT MODERATE 11/19/2011 BISI GARY APRNSON L 296.32 MO DEPRESSIVE RECURRENT MODERATE 11/19/2011 296.32 MO DEPRESSIVE RECURRENT MODERATE 11/19/2011 296.32 MO DEPRESSIVE RECURRENT MODERATE 11/19/2011 296.32 MO DEPRESSIVE RECURRENT MODERATE 11/19/2011 CARLOS BENSON ANTONIO K 296.32 MO DEPRESSIVE RECURRENT MODERATE 11/19/2011 BISI DOMINGUEZ MD 296.32 MO DEPRESSIVE RECURRENT MODERATE 11/19/2011 EATJACKIE SANTOS MARIBEL L 296.32 MO DEPRESSIVE RECURRENT MODERATE 11/19/2011 GONZALEZ DO ANTONIO K 296.32 MO DEPRESSIVE RECURRENT MODERATE 11/19/2011 EATON DANIELLE MARIBEL L 296.32 MO DEPRESSIVE RECURRENT MODERATE 11/19/2011 GONZALEZ DO ANTONIO K 296.32 MO DEPRESSIVE RECURRENT MODERATE 11/19/2011 GONZALEZ DO ANTONIO K 296.32 MO DEPRESSIVE RECURRENT MODERATE 11/19/2011 EATON DANIELLE MARIBEL L 296.32 MO DEPRESSIVE RECURRENT MODERATE 11/19/2011 EATJACKIE SANTOS MARIBEL L 296.32 MO DEPRESSIVE RECURRENT MODERATE 11/19/2011 GONZALEZ DO, ANTONIO K 296.32 MO DEPRESSIVE RECURRENT MODERATE 11/19/2011 ANTONIO GONZALEZ DO K 296.32 MO DEPRESSIVE RECURRENT MODERATE 11/19/2011 BISI DOMINGUEZ MD 296.32 MO DEPRESSIVE RECURRENT MODERATE 11/19/2011 MARIBEL GARY APRN 296.32 MO DEPRESSIVE RECURRENT MODERATE 12/06/2011 726.90 TENDONITIS 12/06/2011 726.90 TENDONITIS 12/06/2011 726.90 TENDONITIS 12/06/2011 726.90 TENDONITIS 12/06/2011 MAXX JIMENEZ 726.90 TENDONITIS 12/06/2011 726.90 TENDONITIS 12/06/2011 MARIBEL GARY APRN 726.90 TENDONITIS 12/06/2011 726.90 TENDONITIS 12/06/2011 726.90 TENDONITIS 12/06/2011 726.90 TENDONITIS 12/06/2011 ANTONIO GONZALEZ DO K 726.90 TENDONITIS 12/06/2011 BISI DOMINGUEZ MD 726.90 TENDONITIS 12/06/2011 MARIBEL GARY APRN 726.90 TENDONITIS 12/06/2011 ANTONIO GONZALEZ DO K 726.90 TENDONITIS 12/06/2011 MARIBEL GARY APRN L 726.90 TENDONITIS 12/06/2011 ANTONIO GONZALEZ DO K 726.90 TENDONITIS 12/06/2011 ANTONIO GONZALEZ DO K 726.90 TENDONITIS 12/06/2011 MARIBEL GARY APRN L 726.90 TENDONITIS 12/06/2011 MARIBEL GARY APRN 726.90 TENDONITIS 12/06/2011 ANTONIO GONZALEZ DO K 726.90 TENDONITIS 12/06/2011 ANTONIO GONZALEZ DO K 726.90 TENDONITIS 12/06/2011 BISI DOMINGUEZ MD 726.90 TENDONITIS 12/06/2011 MARIBEL GARY APRN 726.90 TENDONITIS 03/05/2012 296.30 MAJOR DEPRESSIVE AFFECTIVE DISORDER RECURRENT EPISODE UNSPECIFIED DEGREE 03/05/2012 296.30 MAJOR DEPRESSIVE AFFECTIVE DISORDER RECURRENT EPISODE UNSPECIFIED DEGREE 03/05/2012 296.30 MAJOR DEPRESSIVE AFFECTIVE DISORDER RECURRENT EPISODE UNSPECIFIED DEGREE 03/05/2012 296.30 MAJOR DEPRESSIVE AFFECTIVE DISORDER RECURRENT EPISODE UNSPECIFIED DEGREE 03/05/2012 MAXX JIMENEZ 296.30 MAJOR DEPRESSIVE AFFECTIVE DISORDER RECURRENT EPISODE UNSPECIFIED DEGREE 03/05/2012 296.30 MAJOR DEPRESSIVE AFFECTIVE DISORDER RECURRENT EPISODE UNSPECIFIED DEGREE 03/05/2012 MARIBEL GARY APRN 296.30 MAJOR DEPRESSIVE AFFECTIVE DISORDER RECURRENT EPISODE UNSPECIFIED DEGREE 03/05/2012 296.30 MAJOR DEPRESSIVE AFFECTIVE DISORDER RECURRENT EPISODE UNSPECIFIED DEGREE 03/05/2012 296.30 MAJOR DEPRESSIVE AFFECTIVE DISORDER RECURRENT EPISODE UNSPECIFIED DEGREE 03/05/2012 296.30 MAJOR DEPRESSIVE AFFECTIVE DISORDER RECURRENT EPISODE UNSPECIFIED DEGREE 03/05/2012 LIZZY GONZALEZ DOA K 296.30 MAJOR DEPRESSIVE AFFECTIVE DISORDER RECURRENT EPISODE UNSPECIFIED DEGREE 03/05/2012 BISI DOMINGUEZ MD 296.30 MAJOR DEPRESSIVE AFFECTIVE DISORDER RECURRENT EPISODE UNSPECIFIED DEGREE 03/05/2012 MARIBEL GARY APRN 296.30 MAJOR DEPRESSIVE AFFECTIVE DISORDER RECURRENT EPISODE UNSPECIFIED DEGREE 03/05/2012 GONZALEZ DO ANTONIO K 296.30 MAJOR DEPRESSIVE AFFECTIVE DISORDER RECURRENT EPISODE UNSPECIFIED DEGREE 03/05/2012 MARIBEL GARY APRN 296.30 MAJOR DEPRESSIVE AFFECTIVE DISORDER RECURRENT EPISODE UNSPECIFIED DEGREE 03/05/2012 GONZALEZ DO ANTONIO K 296.30 MAJOR DEPRESSIVE AFFECTIVE DISORDER RECURRENT EPISODE UNSPECIFIED DEGREE 03/05/2012 GONZALEZ DO ANTONIO K 296.30 MAJOR DEPRESSIVE AFFECTIVE DISORDER RECURRENT EPISODE UNSPECIFIED DEGREE 03/05/2012 MARIBEL GARY APRN L 296.30 MAJOR DEPRESSIVE AFFECTIVE DISORDER RECURRENT EPISODE UNSPECIFIED DEGREE 03/05/2012 MARIBEL GARY APRN 296.30 MAJOR DEPRESSIVE AFFECTIVE DISORDER RECURRENT EPISODE UNSPECIFIED DEGREE 03/05/2012 GONZALEZ DO ANTONIO K 296.30 MAJOR DEPRESSIVE AFFECTIVE DISORDER RECURRENT EPISODE UNSPECIFIED DEGREE 03/05/2012 GONZALEZ DO ANTONIO K 296.30 MAJOR DEPRESSIVE AFFECTIVE DISORDER RECURRENT EPISODE UNSPECIFIED DEGREE 03/05/2012 BISI DOMINGUEZ MD 296.30 MAJOR DEPRESSIVE AFFECTIVE DISORDER RECURRENT EPISODE UNSPECIFIED DEGREE 03/05/2012 MARIBEL GARY APRN 296.30 MAJOR DEPRESSIVE AFFECTIVE DISORDER RECURRENT EPISODE UNSPECIFIED DEGREE 04/07/2012 300.02 AN GEN ANXIETY 04/07/2012 300.02 AN GEN ANXIETY 04/07/2012 300.02 AN GEN ANXIETY 04/07/2012 300.02 AN GEN ANXIETY 04/07/2012 MAXX JIMENEZ 300.02 AN GEN ANXIETY 04/07/2012 300.02 AN GEN ANXIETY 04/07/2012 MARIBEL GARY APRN 300.02 AN GEN ANXIETY 04/07/2012 300.02 AN GEN ANXIETY 04/07/2012 300.02 AN GEN ANXIETY 04/07/2012 300.02 AN GEN ANXIETY 04/07/2012 GONZALEZ DO, ANTONIO K 300.02 AN GEN ANXIETY 04/07/2012 BISI DOMINGUEZ MD 300.02 AN GEN ANXIETY 04/07/2012 MARIBEL GARY APRN 300.02 AN GEN ANXIETY 04/07/2012 GONZALEZ DO, ANTONIO K 300.02 AN GEN ANXIETY 04/07/2012 MARIBEL GARY APRN 300.02 AN GEN ANXIETY 04/07/2012 GONZALEZ DO, ANTONIO K 300.02 AN GEN ANXIETY 04/07/2012 GONZALEZ DO, ANTONIO K 300.02 AN GEN ANXIETY 04/07/2012 MARIBEL GARY APRN 300.02 AN GEN ANXIETY 04/07/2012 MARIBEL GARY APRN 300.02 AN GEN ANXIETY 04/07/2012 GONZALEZ DO, ANTONIO K 300.02 AN GEN ANXIETY 04/07/2012 GONZALEZ DO, ANTONIO K 300.02 AN GEN ANXIETY 04/07/2012 BISI DOMINGUEZ MD 300.02 AN GEN ANXIETY 04/07/2012 MARIBEL GARY APRN 300.02 AN GEN ANXIETY 04/28/2012 429.3 CARDIOMEGALY 04/28/2012 786.09 difficulty breathing (dyspnea) 04/28/2012 429.3 CARDIOMEGALY 04/28/2012 786.09 difficulty breathing (dyspnea) 04/28/2012 429.3 CARDIOMEGALY 04/28/2012 786.09 difficulty breathing (dyspnea) 04/28/2012 429.3 CARDIOMEGALY 04/28/2012 786.09 difficulty breathing (dyspnea) 04/28/2012 MAXX JIMENEZ 429.3 CARDIOMEGALY 04/28/2012 MAXX JIMENEZ 786.09 difficulty breathing (dyspnea) 04/28/2012 429.3 CARDIOMEGALY 04/28/2012 786.09 difficulty breathing (dyspnea) 04/28/2012 MARIBEL GARY APRN 429.3 CARDIOMEGALY 04/28/2012 MARIBEL GARY APRN 786.09 difficulty breathing (dyspnea) 04/28/2012 429.3 CARDIOMEGALY 04/28/2012 786.09 difficulty breathing (dyspnea) 04/28/2012 429.3 CARDIOMEGALY 04/28/2012 786.09 difficulty breathing (dyspnea) 04/28/2012 429.3 CARDIOMEGALY 04/28/2012 786.09 difficulty breathing (dyspnea) 04/28/2012 GONZALEZ DO, ANTONIO K 429.3 CARDIOMEGALY 04/28/2012 GONZALEZ DO, ANTONIO K 786.09 difficulty breathing (dyspnea) 04/28/2012 BISI DOMINGUEZ MD 429.3 CARDIOMEGALY 04/28/2012 BISI DOMINGUEZ MD 786.09 difficulty breathing (dyspnea) 04/28/2012 [employer] MARIBEL L 429.3 CARDIOMEGALY 04/28/2012 EATON [employer] SUPERVISOR, MARIBEL L 786.09 difficulty breathing (dyspnea) 04/28/2012 GONZALEZ DO, ANTONIO K 429.3 CARDIOMEGALY 04/28/2012 GONZALEZ DO, ANTONIO K 786.09 difficulty breathing (dyspnea) 04/28/2012 EATON [employer]IN CLEANING SUPERVISORBISI DelgadilloSON L 429.3 CARDIOMEGALY 04/28/2012 EATON CABIN CLEANING SUPERVISORBISIMARIBEL L 786.09 difficulty breathing (dyspnea) 04/28/2012 GONZALEZ DO, ANTONIO K 429.3 CARDIOMEGALY 04/28/2012 GONZALEZ DO, ANTONIO K 786.09 difficulty breathing (dyspnea) 04/28/2012 GONZALEZ DO, ANTONIO K 429.3 CARDIOMEGALY 04/28/2012 GONZALEZ DO, ANTONIO K 786.09 difficulty breathing (dyspnea) 04/28/2012 [employer] SUPER[employer] MARIBEL L 429.3 CARDIOMEGALY 04/28/2012 EATON CABIN CLEANING SUPERVISORBISI DelgadilloSON L 786.09 difficulty breathing (dyspnea) 04/28/2012 [employer] SUPER[employer] MARIBEL L 429.3 CARDIOMEGALY 04/28/2012 E[employer]ON [employer] SUPERVISOR, MARIBEL L 786.09 difficulty breathing (dyspnea) 04/28/2012 GONZALEZ DO, ANTONIO K 429.3 CARDIOMEGALY 04/28/2012 GONZALEZ DO, ANTONIO K 786.09 difficulty breathing (dyspnea) 04/28/2012 GONZALEZ DO, ANTONIO K 429.3 CARDIOMEGALY 04/28/2012 GONZALEZ DO, ANTONIO K 786.09 difficulty breathing (dyspnea) 04/28/2012 BISI DOMINGUEZ MD 429.3 CARDIOMEGALY 04/28/2012 BISI DOMINGUEZ MD 786.09 difficulty breathing (dyspnea) 04/28/2012 EATMARIBEL MEJIA APRN 429.3 CARDIOMEGALY 04/28/2012 PHYLLISMARIBEL MEJIA APRN 786.09 difficulty breathing (dyspnea) 05/01/2012 356.9 NEUROPATHY 05/01/2012 703.0 INGROWN TOENAIL (infection) 05/01/2012 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 05/01/2012 356.9 NEUROPATHY 05/01/2012 703.0 INGROWN TOENAIL (infection) 05/01/2012 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 05/01/2012 356.9 NEUROPATHY 05/01/2012 703.0 INGROWN TOENAIL (infection) 05/01/2012 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 05/01/2012 356.9 NEUROPATHY 05/01/2012 703.0 INGROWN TOENAIL (infection) 05/01/2012 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 05/01/2012 MAXX JIMENEZ 356.9 NEUROPATHY 05/01/2012 MAXX JIMENEZ 703.0 INGROWN TOENAIL (infection) 05/01/2012 MAXX JIMENEZ 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 05/01/2012 356.9 NEUROPATHY 05/01/2012 703.0 INGROWN TOENAIL (infection) 05/01/2012 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 05/01/2012 MARIBEL GARY APRN 356.9 NEUROPATHY 05/01/2012 MARIBEL GARY APRN 703.0 INGROWN TOENAIL (infection) 05/01/2012 PHYLLISMARIBEL MEJIA APRN 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 05/01/2012 356.9 NEUROPATHY 05/01/2012 703.0 INGROWN TOENAIL (infection) 05/01/2012 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 05/01/2012 356.9 NEUROPATHY 05/01/2012 703.0 INGROWN TOENAIL (infection) 05/01/2012 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 05/01/2012 356.9 NEUROPATHY 05/01/2012 703.0 INGROWN TOENAIL (infection) 05/01/2012 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 05/01/2012 GONZALEZ DOLIZZYA K 356.9 NEUROPATHY 05/01/2012 GONZALEZ DOANTONIO K 703.0 INGROWN TOENAIL (infection) 05/01/2012 GONZALEZ DO, ANTONIO K 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 05/01/2012 BISI DOMINGUEZ MD 356.9 NEUROPATHY 05/01/2012 BISI DOMINGUEZ MD 703.0 INGROWN TOENAIL (infection) 05/01/2012 BISI DOMINGUEZ MD 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 05/01/2012 EATON CABIN CLEANING SUPERVISOR, MARIBEL L 356.9 NEUROPATHY 05/01/2012 EATON CABIN CLEANING SUPERVISOR, MARIBEL L 703.0 INGROWN TOENAIL (infection) 05/01/2012 EATON CABIN CLEANING SUPERVISOR, MARIBEL L 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 05/01/2012 GONZALEZ DO, ANTONIO K 356.9 NEUROPATHY 05/01/2012 GONZALEZ DO, ANTONIO K 703.0 INGROWN TOENAIL (infection) 05/01/2012 GONZALEZ DO, ANTONIO K 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 05/01/2012 EATON CABIN CLEANING SUPERVISOR, MARIBEL L 356.9 NEUROPATHY 05/01/2012 EATON CABIN CLEANING SUPERVISOR, MARIBEL L 703.0 INGROWN TOENAIL (infection) 05/01/2012 EATON CABIN CLEANING SUPERVISOR, MARIBEL L 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 05/01/2012 GONZALEZ DO, ANTONIO K 356.9 NEUROPATHY 05/01/2012 GONZALEZ DO, ANTONIO K 703.0 INGROWN TOENAIL (infection) 05/01/2012 GONZALEZ DO, ANTONIO K 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 05/01/2012 GONZALEZ DO, ANTONIO K 356.9 NEUROPATHY 05/01/2012 GONZALEZ DO, ANTONIO K 703.0 INGROWN TOENAIL (infection) 05/01/2012 GONZALEZ DO, ANTONIO K 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 05/01/2012 EATON CABIN CLEANING SUPERVISOR, MARIBEL L 356.9 NEUROPATHY 05/01/2012 EATON CABIN CLEANING SUPERVISOR, MARIBEL L 703.0 INGROWN TOENAIL (infection) 05/01/2012 EATON CABIN CLEANING SUPERVISOR, MARIBEL L 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 05/01/2012 EATON CABIN CLEANING SUPERVISOR, MARIBEL L 356.9 NEUROPATHY 05/01/2012 EATON CABIN CLEANING SUPERVISOR, MARIBEL L 703.0 INGROWN TOENAIL (infection) 05/01/2012 EATON CABIN CLEANING SUPERVISOR, MARIBEL L 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 05/01/2012 GONZALEZ DO, ANTONIO K 356.9 NEUROPATHY 05/01/2012 GONZALEZ DO, ANTONIO K 703.0 INGROWN TOENAIL (infection) 05/01/2012 GONZALEZ DO, ANTONIO K 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 05/01/2012 GONZALEZ DO, ANTONIO K 356.9 NEUROPATHY 05/01/2012 GONZALEZ DO, ANTONIO K 703.0 INGROWN TOENAIL (infection) 05/01/2012 GONZALEZ DO, ANTONIO K 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 05/01/2012 JACE DOMÍNGUEZ, BISI 356.9 NEUROPATHY 05/01/2012 BISI DOMINGUEZ MD 703.0 INGROWN TOENAIL (infection) 05/01/2012 BISI DOMINGUEZ MD 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 05/01/2012 MARIBEL GARY APRN 356.9 NEUROPATHY 05/01/2012 MARIBEL GARY APRN 703.0 INGROWN TOENAIL (infection) 05/01/2012 MARIBEL GARY APRN 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 05/05/2012 V03.82 NEED FOR PROPHYLACTIC VACCINATION AND INOCULATION AGAINST STREPTOCOCCUS PNEUMONIAE [PNEUMOCOCCUS] 05/05/2012 V74.1 SCREENING EXAMINATION FOR PULMONARY TUBERCULOSIS 05/05/2012 V03.82 NEED FOR PROPHYLACTIC VACCINATION AND INOCULATION AGAINST STREPTOCOCCUS PNEUMONIAE [PNEUMOCOCCUS] 05/05/2012 V74.1 SCREENING EXAMINATION FOR PULMONARY TUBERCULOSIS 05/05/2012 V03.82 NEED FOR PROPHYLACTIC VACCINATION AND INOCULATION AGAINST STREPTOCOCCUS PNEUMONIAE [PNEUMOCOCCUS] 05/05/2012 V74.1 SCREENING EXAMINATION FOR PULMONARY TUBERCULOSIS 05/05/2012 V03.82 NEED FOR PROPHYLACTIC VACCINATION AND INOCULATION AGAINST STREPTOCOCCUS PNEUMONIAE [PNEUMOCOCCUS] 05/05/2012 V74.1 SCREENING EXAMINATION FOR PULMONARY TUBERCULOSIS 05/05/2012 MAXX JIMENEZ V03.82 NEED FOR PROPHYLACTIC VACCINATION AND INOCULATION AGAINST STREPTOCOCCUS PNEUMONIAE [PNEUMOCOCCUS] 05/05/2012 MAXX JIMENEZ V74.1 SCREENING EXAMINATION FOR PULMONARY TUBERCULOSIS 05/05/2012 V03.82 NEED FOR PROPHYLACTIC VACCINATION AND INOCULATION AGAINST STREPTOCOCCUS PNEUMONIAE [PNEUMOCOCCUS] 05/05/2012 V74.1 SCREENING EXAMINATION FOR PULMONARY TUBERCULOSIS 05/05/2012 MARIBEL GARY APRN V03.82 NEED FOR PROPHYLACTIC VACCINATION AND INOCULATION AGAINST STREPTOCOCCUS PNEUMONIAE [PNEUMOCOCCUS] 05/05/2012 MARIBEL GARY APRN V74.1 SCREENING EXAMINATION FOR PULMONARY TUBERCULOSIS 05/05/2012 V03.82 NEED FOR PROPHYLACTIC VACCINATION AND INOCULATION AGAINST STREPTOCOCCUS PNEUMONIAE [PNEUMOCOCCUS] 05/05/2012 V74.1 SCREENING EXAMINATION FOR PULMONARY TUBERCULOSIS 05/05/2012 V03.82 NEED FOR PROPHYLACTIC VACCINATION AND INOCULATION AGAINST STREPTOCOCCUS PNEUMONIAE [PNEUMOCOCCUS] 05/05/2012 V74.1 SCREENING EXAMINATION FOR PULMONARY TUBERCULOSIS 05/05/2012 V03.82 NEED FOR PROPHYLACTIC VACCINATION AND INOCULATION AGAINST STREPTOCOCCUS PNEUMONIAE [PNEUMOCOCCUS] 05/05/2012 V74.1 SCREENING EXAMINATION FOR PULMONARY TUBERCULOSIS 05/05/2012 GONZALEZ DO ANTONIO K V03.82 NEED FOR PROPHYLACTIC VACCINATION AND INOCULATION AGAINST STREPTOCOCCUS PNEUMONIAE [PNEUMOCOCCUS] 05/05/2012 GONZALEZ DO ANTONIO K V74.1 SCREENING EXAMINATION FOR PULMONARY TUBERCULOSIS 05/05/2012 BISI DOMINGUEZ MD V03.82 NEED FOR PROPHYLACTIC VACCINATION AND INOCULATION AGAINST STREPTOCOCCUS PNEUMONIAE [PNEUMOCOCCUS] 05/05/2012 BISI DOMINGUEZ MD V74.1 SCREENING EXAMINATION FOR PULMONARY TUBERCULOSIS 05/05/2012 MARIBEL GARY APRN V03.82 NEED FOR PROPHYLACTIC VACCINATION AND INOCULATION AGAINST STREPTOCOCCUS PNEUMONIAE [PNEUMOCOCCUS] 05/05/2012 MARIBEL GARY APRN V74.1 SCREENING EXAMINATION FOR PULMONARY TUBERCULOSIS 05/05/2012 GONZALEZ DO, ANTONIO K V03.82 NEED FOR PROPHYLACTIC VACCINATION AND INOCULATION AGAINST STREPTOCOCCUS PNEUMONIAE [PNEUMOCOCCUS] 05/05/2012 GONZALEZ DO ANTONIO K V74.1 SCREENING EXAMINATION FOR PULMONARY TUBERCULOSIS 05/05/2012 MARIBEL GARY APRN V03.82 NEED FOR PROPHYLACTIC VACCINATION AND INOCULATION AGAINST STREPTOCOCCUS PNEUMONIAE [PNEUMOCOCCUS] 05/05/2012 MARIBEL GARY APRN V74.1 SCREENING EXAMINATION FOR PULMONARY TUBERCULOSIS 05/05/2012 GONZALEZ DO ANTONIO K V03.82 NEED FOR PROPHYLACTIC VACCINATION AND INOCULATION AGAINST STREPTOCOCCUS PNEUMONIAE [PNEUMOCOCCUS] 05/05/2012 GONZALEZ DO, ANTONIO K V74.1 SCREENING EXAMINATION FOR PULMONARY TUBERCULOSIS 05/05/2012 GONZALEZ DO, ANTONIO K V03.82 NEED FOR PROPHYLACTIC VACCINATION AND INOCULATION AGAINST STREPTOCOCCUS PNEUMONIAE [PNEUMOCOCCUS] 05/05/2012 GONZALEZ DO ANTONIO K V74.1 SCREENING EXAMINATION FOR PULMONARY TUBERCULOSIS 05/05/2012 MARIBEL GRAY APRN V03.82 NEED FOR PROPHYLACTIC VACCINATION AND INOCULATION AGAINST STREPTOCOCCUS PNEUMONIAE [PNEUMOCOCCUS] 05/05/2012 MARIBEL GARY APRN V74.1 SCREENING EXAMINATION FOR PULMONARY TUBERCULOSIS 05/05/2012 MARIBEL GARY APRN L V03.82 NEED FOR PROPHYLACTIC VACCINATION AND INOCULATION AGAINST STREPTOCOCCUS PNEUMONIAE [PNEUMOCOCCUS] 05/05/2012 PHYLLISON MARIBEL SANTOS V74.1 SCREENING EXAMINATION FOR PULMONARY TUBERCULOSIS 05/05/2012 GONZALEZ DO, ANTONIO K V03.82 NEED FOR PROPHYLACTIC VACCINATION AND INOCULATION AGAINST STREPTOCOCCUS PNEUMONIAE [PNEUMOCOCCUS] 05/05/2012 GONZALEZ DO, ANTONIO K V74.1 SCREENING EXAMINATION FOR PULMONARY TUBERCULOSIS 05/05/2012 GONZALEZ DO, ANTONIO K V03.82 NEED FOR PROPHYLACTIC VACCINATION AND INOCULATION AGAINST STREPTOCOCCUS PNEUMONIAE [PNEUMOCOCCUS] 05/05/2012 GONZALEZ DO, ANTONIO K V74.1 SCREENING EXAMINATION FOR PULMONARY TUBERCULOSIS 05/05/2012 BISI DOMINGUEZ MD V03.82 NEED FOR PROPHYLACTIC VACCINATION AND INOCULATION AGAINST STREPTOCOCCUS PNEUMONIAE [PNEUMOCOCCUS] 05/05/2012 BISI DOMINGUEZ MD V74.1 SCREENING EXAMINATION FOR PULMONARY TUBERCULOSIS 05/05/2012 MARIBEL GARY APRN V03.82 NEED FOR PROPHYLACTIC VACCINATION AND INOCULATION AGAINST STREPTOCOCCUS PNEUMONIAE [PNEUMOCOCCUS] 05/05/2012 MARIBEL GARY APRN V74.1 SCREENING EXAMINATION FOR PULMONARY TUBERCULOSIS 05/14/2012 486 PNEUMONIA UNSPECIFIED 05/14/2012 486 PNEUMONIA UNSPECIFIED 05/14/2012 486 PNEUMONIA UNSPECIFIED 05/14/2012 486 PNEUMONIA UNSPECIFIED 05/14/2012 MAXX JIMENEZ 486 PNEUMONIA UNSPECIFIED 05/14/2012 486 PNEUMONIA UNSPECIFIED 05/14/2012 MARIBEL GARY APRN L 486 PNEUMONIA UNSPECIFIED 05/14/2012 486 PNEUMONIA UNSPECIFIED 05/14/2012 486 PNEUMONIA UNSPECIFIED 05/14/2012 486 PNEUMONIA UNSPECIFIED 05/14/2012 GONZALEZ DO, ANTONIO K 486 PNEUMONIA UNSPECIFIED 05/14/2012 BISI DOMINGUEZ MD 486 PNEUMONIA UNSPECIFIED 05/14/2012 PHYLLISON CABIN CLEANING SUPERVISORMARIBEL Delgadillo L 486 PNEUMONIA UNSPECIFIED 05/14/2012 GONZALEZ DO, ANTONIO K 486 PNEUMONIA UNSPECIFIED 05/14/2012 EATON CABIN CLEANING SUPERVISORMARIBEL Delgadillo L 486 PNEUMONIA UNSPECIFIED 05/14/2012 GONZALEZ DO, ANTONIO K 486 PNEUMONIA UNSPECIFIED 05/14/2012 GONZALEZ DO, ANTONIO K 486 PNEUMONIA UNSPECIFIED 05/14/2012 EATON CABIN CLEANING SUPERVISORMARIBEL Delgadillo L 486 PNEUMONIA UNSPECIFIED 05/14/2012 EATON CABIN CLEANING SUPERVISORMARIBEL Delgadillo L 486 PNEUMONIA UNSPECIFIED 05/14/2012 GONZALEZ DO, ANTONIO K 486 PNEUMONIA UNSPECIFIED 05/14/2012 GONZALEZ DO, ANTONIO K 486 PNEUMONIA UNSPECIFIED 05/14/2012 BISI DOMINGUEZ MD 486 PNEUMONIA UNSPECIFIED 05/14/2012 MARIBEL GARY APRN 486 PNEUMONIA UNSPECIFIED 06/18/2012 425.4 CARDIOMYOPHATHY 06/18/2012 425.4 CARDIOMYOPHATHY 06/18/2012 425.4 CARDIOMYOPHATHY 06/18/2012 425.4 CARDIOMYOPHATHY 06/18/2012 MAXX JIMENEZ 425.4 CARDIOMYOPHATHY 06/18/2012 425.4 CARDIOMYOPHATHY 06/18/2012 MARIBEL GARY APRN L 425.4 CARDIOMYOPHATHY 06/18/2012 425.4 CARDIOMYOPHATHY 06/18/2012 425.4 CARDIOMYOPHATHY 06/18/2012 425.4 CARDIOMYOPHATHY 06/18/2012 CARLOS BENSON, ANTONIO K 425.4 CARDIOMYOPHATHY 06/18/2012 BISI DOMINGUEZ MD 425.4 CARDIOMYOPHATHY 06/18/2012 MARIBEL GARY APRN L 425.4 CARDIOMYOPHATHY 06/18/2012 GONZALEZ DO, ANTONIO K 425.4 CARDIOMYOPHATHY 06/18/2012 EATON CABIN CLEANING SUPERVISOR, MARIBEL L 425.4 CARDIOMYOPHATHY 06/18/2012 GONZALEZ DO, ANTONIO K 425.4 CARDIOMYOPHATHY 06/18/2012 GONZALEZ DO, ANTONIO K 425.4 CARDIOMYOPHATHY 06/18/2012 EATMARIBEL MEJIA APRN L 425.4 CARDIOMYOPHATHY 06/18/2012 EATMARIBEL MEJIA APRN L 425.4 CARDIOMYOPHATHY 06/18/2012 GONZALEZ DO, ANTONIO K 425.4 CARDIOMYOPHATHY 06/18/2012 GONZALEZ DO, ANTONIO K 425.4 CARDIOMYOPHATHY 06/18/2012 BISI DOMINGUEZ MD 425.4 CARDIOMYOPHATHY 06/18/2012 MARIBEL GARY APRN L 425.4 CARDIOMYOPHATHY 07/01/2012 496 CHRONIC OBSTRUCTIVE PULMONARY DISEASE 07/01/2012 496 CHRONIC OBSTRUCTIVE PULMONARY DISEASE 07/01/2012 496 CHRONIC OBSTRUCTIVE PULMONARY DISEASE 07/01/2012 496 CHRONIC OBSTRUCTIVE PULMONARY DISEASE 07/01/2012 MAXX JIMENEZ 496 CHRONIC OBSTRUCTIVE PULMONARY DISEASE 07/01/2012 496 CHRONIC OBSTRUCTIVE PULMONARY DISEASE 07/01/2012 EATON CABIN CLEANING SUPERVISOR, MARIBEL L 496 CHRONIC OBSTRUCTIVE PULMONARY DISEASE 07/01/2012 496 CHRONIC OBSTRUCTIVE PULMONARY DISEASE 07/01/2012 496 CHRONIC OBSTRUCTIVE PULMONARY DISEASE 07/01/2012 496 CHRONIC OBSTRUCTIVE PULMONARY DISEASE 07/01/2012 ANTONIO GONZALEZ DO 496 CHRONIC OBSTRUCTIVE PULMONARY DISEASE 07/01/2012 BISI DOMINGUEZ MD CHRONIC OBSTRUCTIVE PULMONARY DISEASE 07/01/2012 MARIBEL GARY APRN L 496 CHRONIC OBSTRUCTIVE PULMONARY DISEASE 07/01/2012 CARLOS BENSON ANTONIO K 496 CHRONIC OBSTRUCTIVE PULMONARY DISEASE 07/01/2012 MARIBEL GARY APRN L 496 CHRONIC OBSTRUCTIVE PULMONARY DISEASE 07/01/2012 GONZALEZ DO ANTONIO K 496 CHRONIC OBSTRUCTIVE PULMONARY DISEASE 07/01/2012 GONZALEZ DO ANTONIO K 496 CHRONIC OBSTRUCTIVE PULMONARY DISEASE 07/01/2012 MARIBEL GARY APRN 496 CHRONIC OBSTRUCTIVE PULMONARY DISEASE 07/01/2012 MARIBEL GARY APRN 496 CHRONIC OBSTRUCTIVE PULMONARY DISEASE 07/01/2012 GONZALEZ LIZZY BENSONA K 496 CHRONIC OBSTRUCTIVE PULMONARY DISEASE 07/01/2012 ANTONIO GONZALEZ DO K 496 CHRONIC OBSTRUCTIVE PULMONARY DISEASE 07/01/2012 BISI DOMINGUEZ MD CHRONIC OBSTRUCTIVE PULMONARY DISEASE 07/01/2012 MARIBEL GARY APRN 496 CHRONIC OBSTRUCTIVE PULMONARY DISEASE 07/09/2012 414.00 CORONARY ATHEROSCLEROSIS OF UNSPECIFIED TYPE OF VESSEL [place] OR GRAFT 07/09/2012 414.00 CORONARY ATHEROSCLEROSIS OF UNSPECIFIED TYPE OF VESSEL [place] OR GRAFT 07/09/2012 414.00 CORONARY ATHEROSCLEROSIS OF UNSPECIFIED TYPE OF VESSEL [place] OR GRAFT 07/09/2012 414.00 CORONARY ATHEROSCLEROSIS OF UNSPECIFIED TYPE OF VESSEL [place] OR GRAFT 07/09/2012 MAXX JIMENEZ 414.00 CORONARY ATHEROSCLEROSIS OF UNSPECIFIED TYPE OF VESSEL [place] OR GRAFT 07/09/2012 414.00 CORONARY ATHEROSCLEROSIS OF UNSPECIFIED TYPE OF VESSEL [place] OR GRAFT 07/09/2012 MARIBEL GARY APRN 414.00 CORONARY ATHEROSCLEROSIS OF UNSPECIFIED TYPE OF VESSEL [place] OR GRAFT 07/09/2012 414.00 CORONARY ATHEROSCLEROSIS OF UNSPECIFIED TYPE OF VESSEL [place] OR GRAFT 07/09/2012 414.00 CORONARY ATHEROSCLEROSIS OF UNSPECIFIED TYPE OF VESSEL [place] OR GRAFT 07/09/2012 414.00 CORONARY ATHEROSCLEROSIS OF UNSPECIFIED TYPE OF VESSEL [place] OR GRAFT 07/09/2012 ANTONIO GONZAELZ DO 414.00 CORONARY ATHEROSCLEROSIS OF UNSPECIFIED TYPE OF VESSEL [place] OR GRAFT 07/09/2012 BISI DOMINGUEZ MD 414.00 CORONARY ATHEROSCLEROSIS OF UNSPECIFIED TYPE OF VESSEL [place] OR GRAFT 07/09/2012 MARIBEL GARY APRN 414.00 CORONARY ATHEROSCLEROSIS OF UNSPECIFIED TYPE OF VESSEL [place] OR GRAFT 07/09/2012 LIZZY GONZALEZ DOA K 414.00 CORONARY ATHEROSCLEROSIS OF UNSPECIFIED TYPE OF VESSEL [place] OR GRAFT 07/09/2012 MARIBEL GARY APRN 414.00 CORONARY ATHEROSCLEROSIS OF UNSPECIFIED TYPE OF VESSEL [place] OR GRAFT 07/09/2012 CARLOS BENSON ANTONIO K 414.00 CORONARY ATHEROSCLEROSIS OF UNSPECIFIED TYPE OF VESSEL [place] OR GRAFT 07/09/2012 GONZALEZ DO ANTONIO K 414.00 CORONARY ATHEROSCLEROSIS OF UNSPECIFIED TYPE OF VESSEL [place] OR GRAFT 07/09/2012 MARIBEL GARY APRN 414.00 CORONARY ATHEROSCLEROSIS OF UNSPECIFIED TYPE OF VESSEL [place] OR GRAFT 07/09/2012 MARIBEL GARY APRN 414.00 CORONARY ATHEROSCLEROSIS OF UNSPECIFIED TYPE OF VESSEL [place] OR GRAFT 07/09/2012 CARLOS BENSON ANTONIO K 414.00 CORONARY ATHEROSCLEROSIS OF UNSPECIFIED TYPE OF VESSEL [place] OR GRAFT 07/09/2012 LIZZY GONZALEZ DOA K 414.00 CORONARY ATHEROSCLEROSIS OF UNSPECIFIED TYPE OF VESSEL [place] OR GRAFT 07/09/2012 BISI DOMINGUEZ MD 414.00 CORONARY ATHEROSCLEROSIS OF UNSPECIFIED TYPE OF VESSEL [place] OR GRAFT 07/09/2012 MARIBEL GARY APRN 414.00 CORONARY ATHEROSCLEROSIS OF UNSPECIFIED TYPE OF VESSEL [place] OR GRAFT 07/29/2012 796.2 ELEVATED BLOOD PRESSURE READING WITHOUT DIAGNOSIS OF HYPERTENSION 07/29/2012 796.2 ELEVATED BLOOD PRESSURE READING WITHOUT DIAGNOSIS OF HYPERTENSION 07/29/2012 796.2 ELEVATED BLOOD PRESSURE READING WITHOUT DIAGNOSIS OF HYPERTENSION 07/29/2012 796.2 ELEVATED BLOOD PRESSURE READING WITHOUT DIAGNOSIS OF HYPERTENSION 07/29/2012 MAXX JIMENEZ 796.2 ELEVATED BLOOD PRESSURE READING WITHOUT DIAGNOSIS OF HYPERTENSION 07/29/2012 796.2 ELEVATED BLOOD PRESSURE READING WITHOUT DIAGNOSIS OF HYPERTENSION 07/29/2012 MARIBEL GARY APRN 796.2 ELEVATED BLOOD PRESSURE READING WITHOUT DIAGNOSIS OF HYPERTENSION 07/29/2012 796.2 ELEVATED BLOOD PRESSURE READING WITHOUT DIAGNOSIS OF HYPERTENSION 07/29/2012 796.2 ELEVATED BLOOD PRESSURE READING WITHOUT DIAGNOSIS OF HYPERTENSION 07/29/2012 796.2 ELEVATED BLOOD PRESSURE READING WITHOUT DIAGNOSIS OF HYPERTENSION 07/29/2012 GONZALEZ DO, ANTONIO K 796.2 ELEVATED BLOOD PRESSURE READING WITHOUT DIAGNOSIS OF HYPERTENSION 07/29/2012 JACE DOMÍNGUEZ, BISI 796.2 ELEVATED BLOOD PRESSURE READING WITHOUT DIAGNOSIS OF HYPERTENSION 07/29/2012 MARIBEL GARY APRN L 796.2 ELEVATED BLOOD PRESSURE READING WITHOUT DIAGNOSIS OF HYPERTENSION 07/29/2012 GONZALEZ DO ANTONIO K 796.2 ELEVATED BLOOD PRESSURE READING WITHOUT DIAGNOSIS OF HYPERTENSION 07/29/2012 EATMARIBEL MEJIA APRN L 796.2 ELEVATED BLOOD PRESSURE READING WITHOUT DIAGNOSIS OF HYPERTENSION 07/29/2012 GONZALEZ DO, ANTONIO K 796.2 ELEVATED BLOOD PRESSURE READING WITHOUT DIAGNOSIS OF HYPERTENSION 07/29/2012 GONZALEZ DO, ANTONIO K 796.2 ELEVATED BLOOD PRESSURE READING WITHOUT DIAGNOSIS OF HYPERTENSION 07/29/2012 EATMARIBEL MEJIA APRN L 796.2 ELEVATED BLOOD PRESSURE READING WITHOUT DIAGNOSIS OF HYPERTENSION 07/29/2012 MARIBEL GARY APRN L 796.2 ELEVATED BLOOD PRESSURE READING WITHOUT DIAGNOSIS OF HYPERTENSION 07/29/2012 GONZALEZ DO ANTONIO K 796.2 ELEVATED BLOOD PRESSURE READING WITHOUT DIAGNOSIS OF HYPERTENSION 07/29/2012 GONZALEZ DOLIZZYA K 796.2 ELEVATED BLOOD PRESSURE READING WITHOUT DIAGNOSIS OF HYPERTENSION 07/29/2012 JACE DOMÍNGUEZ, BISI 796.2 ELEVATED BLOOD PRESSURE READING WITHOUT DIAGNOSIS OF HYPERTENSION 07/29/2012 MARIBEL GARY APRN L 796.2 ELEVATED BLOOD PRESSURE READING WITHOUT DIAGNOSIS OF HYPERTENSION 08/18/2012 787.91 diarrhea 08/18/2012 787.91 diarrhea 08/18/2012 787.91 diarrhea 08/18/2012 787.91 diarrhea 08/18/2012 MAXX JIMENEZ 787.91 diarrhea 08/18/2012 787.91 diarrhea 08/18/2012 MARIBEL GARY APRN L 787.91 diarrhea 08/18/2012 787.91 diarrhea 08/18/2012 787.91 diarrhea 08/18/2012 787.91 diarrhea 08/18/2012 GONZALEZ LIZZY BENSONA K 787.91 diarrhea 08/18/2012 BISI DOMINGUEZ MD 787.91 diarrhea 08/18/2012 MARIBEL GARY APRN 787.91 diarrhea 08/18/2012 GONZALEZ ANTONIO BENSON K 787.91 diarrhea 08/18/2012 EATBISI MEJIA APRNSON L 787.91 diarrhea 08/18/2012 GONZALEZ DO, ANTONIO K 787.91 diarrhea 08/18/2012 GONZALEZ DO, ANTONIO K 787.91 diarrhea 08/18/2012 EATON CABIN CLEANING SUPERVISOR, MARIBEL L 787.91 diarrhea 08/18/2012 EATON CABIN CLEANING SUPERVISOR, MARIBEL L 787.91 diarrhea 08/18/2012 GONZALEZ DO, ANTONIO K 787.91 diarrhea 08/18/2012 GONZALEZ DO, ANTONIO K 787.91 diarrhea 08/18/2012 BISI DOMINGUEZ MD 787.91 diarrhea 08/18/2012 EATON CABIN CLEANING SUPERVISOR, MARIBEL L 787.91 diarrhea 09/30/2012 272.4 HYPERLIPIDEMIA 09/30/2012 272.4 HYPERLIPIDEMIA 09/30/2012 272.4 HYPERLIPIDEMIA 09/30/2012 272.4 HYPERLIPIDEMIA 09/30/2012 MAXX JIMENEZ 272.4 HYPERLIPIDEMIA 09/30/2012 272.4 HYPERLIPIDEMIA 09/30/2012 EATON CABIN CLEANING SUPERVISOR, MARIBEL L 272.4 HYPERLIPIDEMIA 09/30/2012 272.4 HYPERLIPIDEMIA 09/30/2012 272.4 HYPERLIPIDEMIA 09/30/2012 272.4 HYPERLIPIDEMIA 09/30/2012 GONZALEZ DO, ANTONIO K 272.4 HYPERLIPIDEMIA 09/30/2012 JACE DOMÍNGUEZ, BISI 272.4 HYPERLIPIDEMIA 09/30/2012 EATON CABIN CLEANING SUPERVISOR, MARIBEL L 272.4 HYPERLIPIDEMIA 09/30/2012 GONZALEZ DO, ANTONIO K 272.4 HYPERLIPIDEMIA 09/30/2012 EATON CABIN CLEANING SUPERVISOR, MARIBEL L 272.4 HYPERLIPIDEMIA 09/30/2012 GONZALEZ DO, ANTONIO K 272.4 HYPERLIPIDEMIA 09/30/2012 GONZALEZ DO, ANTONIO K 272.4 HYPERLIPIDEMIA 09/30/2012 EATON CABIN CLEANING SUPERVISOR, MARIBEL L 272.4 HYPERLIPIDEMIA 09/30/2012 EATON CABIN CLEANING SUPERVISOR, MARIBEL L 272.4 HYPERLIPIDEMIA 09/30/2012 GONZALEZ DO, ANTONIO K 272.4 HYPERLIPIDEMIA 09/30/2012 GONZALEZ DO, ANTONIO K 272.4 HYPERLIPIDEMIA 09/30/2012 JACE DOMÍNGUEZ, ALI 272.4 HYPERLIPIDEMIA 09/30/2012 EATON CABIN CLEANING SUPERVISOR, MARIBEL L 272.4 HYPERLIPIDEMIA 11/23/2012 461.9 SINUSITIS ACUTE 11/23/2012 790.6 Liver Function Test, Abnormal 11/23/2012 BAQIR MAXX 461.9 SINUSITIS ACUTE 11/23/2012 BAQIR MAXX 790.6 Liver Function Test, Abnormal 11/23/2012 461.9 SINUSITIS ACUTE 11/23/2012 790.6 Liver Function Test, Abnormal 11/23/2012 EATON CABIN CLEANING SUPERVISORBISI DelgadilloSON L 461.9 SINUSITIS ACUTE 11/23/2012 EATON CABIN CLEANING SUPERVISOR, MARIBEL L 790.6 Liver Function Test, Abnormal 11/23/2012 461.9 SINUSITIS ACUTE 11/23/2012 790.6 Liver Function Test, Abnormal 11/23/2012 461.9 SINUSITIS ACUTE 11/23/2012 790.6 Liver Function Test, Abnormal 11/23/2012 461.9 SINUSITIS ACUTE 11/23/2012 790.6 Liver Function Test, Abnormal 11/23/2012 GONZALEZ DO, ANTONIO K 461.9 SINUSITIS ACUTE 11/23/2012 GONZALEZ DO, ANTONIO K 790.6 Liver Function Test, Abnormal 11/23/2012 BISI DOMINGUEZ MD 461.9 SINUSITIS ACUTE 11/23/2012 BISI DOMINGUEZ MD 790.6 Liver Function Test, Abnormal 11/23/2012 EATON CABIN CLEANING SUPERVISOR, MARIBEL L 461.9 SINUSITIS ACUTE 11/23/2012 EATON CABIN CLEANING SUPERVISOR, MARIBEL L 790.6 Liver Function Test, Abnormal 11/23/2012 GONZALEZ DO, ANTONIO K 461.9 SINUSITIS ACUTE 11/23/2012 GONZALEZ DO, ANTONIO K 790.6 Liver Function Test, Abnormal 11/23/2012 EATON CABIN CLEANING SUPERVISOR, MARIBEL L 461.9 SINUSITIS ACUTE 11/23/2012 EATON [employer] SUPERVISOR, MARIBEL L 790.6 Liver Function Test, Abnormal 11/23/2012 GONZALEZ DO, ANTONIO K 461.9 SINUSITIS ACUTE 11/23/2012 GONZALEZ DO, ANTONIO K 790.6 Liver Function Test, Abnormal 11/23/2012 GONZALEZ DO, ANTONIO K 461.9 SINUSITIS ACUTE 11/23/2012 GONZALEZ DO, ANTONIO K 790.6 Liver Function Test, Abnormal 11/23/2012 EATON [employer] SUPERVISOR, MARIBEL L 461.9 SINUSITIS ACUTE 11/23/2012 EATON [employer] CLE[employer] SUPERVISOR, MARIBEL L 790.6 Liver Function Test, Abnormal 11/23/2012 EATON [employer] SUPERVISOR, MARIBEL L 461.9 SINUSITIS ACUTE 11/23/2012 EATON [employer] CLE[employer] SUPERVISOR, MARIBEL L 790.6 Liver Function Test, Abnormal 11/23/2012 GONZALEZ DO, ANTONIO K 461.9 SINUSITIS ACUTE 11/23/2012 GONZALEZ DO, ANTONIO K 790.6 Liver Function Test, Abnormal 11/23/2012 GONZALEZ DO, ANTONIO K 461.9 SINUSITIS ACUTE 11/23/2012 GONZALEZ DO, ANTONIO K 790.6 Liver Function Test, Abnormal 11/23/2012 BISI DOMINGUEZ MD 461.9 SINUSITIS ACUTE 11/23/2012 BISI DOMINGUEZ MD 790.6 Liver Function Test, Abnormal 01/13/2013 MARIBEL GARY APRN L 481 PNEUMOCOCCAL PNEUMONIA [STREPTOCOCCUS PNEUMONIAE PNEUMONIA] 01/13/2013 481 PNEUMOCOCCAL PNEUMONIA [STREPTOCOCCUS PNEUMONIAE PNEUMONIA] 01/13/2013 481 PNEUMOCOCCAL PNEUMONIA [STREPTOCOCCUS PNEUMONIAE PNEUMONIA] 01/13/2013 481 PNEUMOCOCCAL PNEUMONIA [STREPTOCOCCUS PNEUMONIAE PNEUMONIA] 01/13/2013 GONZALEZ DO, ANTONIO K 481 PNEUMOCOCCAL PNEUMONIA [STREPTOCOCCUS PNEUMONIAE PNEUMONIA] 01/13/2013 BISI DOMINGUEZ MD 481 PNEUMOCOCCAL PNEUMONIA [STREPTOCOCCUS PNEUMONIAE PNEUMONIA] 01/13/2013 MARIBEL GARY APRN L 481 PNEUMOCOCCAL PNEUMONIA [STREPTOCOCCUS PNEUMONIAE PNEUMONIA] 01/13/2013 GONZALEZ DO ANTONIO K 481 PNEUMOCOCCAL PNEUMONIA [STREPTOCOCCUS PNEUMONIAE PNEUMONIA] 01/13/2013 EATMARIBEL MEJIA APRN L 481 PNEUMOCOCCAL PNEUMONIA [STREPTOCOCCUS PNEUMONIAE PNEUMONIA] 01/13/2013 GONZALEZ DO ANTONIO K 481 PNEUMOCOCCAL PNEUMONIA [STREPTOCOCCUS PNEUMONIAE PNEUMONIA] 01/13/2013 GONZALEZ DO, ANTONIO K 481 PNEUMOCOCCAL PNEUMONIA [STREPTOCOCCUS PNEUMONIAE PNEUMONIA] 01/13/2013 MARIBEL GARY APRN L 481 PNEUMOCOCCAL PNEUMONIA [STREPTOCOCCUS PNEUMONIAE PNEUMONIA] 01/13/2013 MARIBEL GARY APRN L 481 PNEUMOCOCCAL PNEUMONIA [STREPTOCOCCUS PNEUMONIAE PNEUMONIA] 01/13/2013 GONZALEZ DO, ANTONIO K 481 PNEUMOCOCCAL PNEUMONIA [STREPTOCOCCUS PNEUMONIAE PNEUMONIA] 01/13/2013 GONZALEZ DO, ANTONIO K 481 PNEUMOCOCCAL PNEUMONIA [STREPTOCOCCUS PNEUMONIAE PNEUMONIA] 01/13/2013 BISI DOMINGUEZ MD 481 PNEUMOCOCCAL PNEUMONIA [STREPTOCOCCUS PNEUMONIAE PNEUMONIA] 02/18/2013 682.0 CELLULITIS AND ABSCESS OF FACE 02/18/2013 789.09 ABDOMINAL PAIN OTHER SPECIFIED SITE 02/18/2013 682.0 CELLULITIS AND ABSCESS OF FACE 02/18/2013 789.09 ABDOMINAL PAIN OTHER SPECIFIED SITE 02/18/2013 682.0 CELLULITIS AND ABSCESS OF FACE 02/18/2013 789.09 ABDOMINAL PAIN OTHER SPECIFIED SITE 02/18/2013 GONZALEZ DO, ANTONIO K 682.0 CELLULITIS AND ABSCESS OF FACE 02/18/2013 GONZALEZ DO, ANTONIO K 789.09 ABDOMINAL PAIN OTHER SPECIFIED SITE 02/18/2013 BISI DOMINGUEZ MD 682.0 CELLULITIS AND ABSCESS OF FACE 02/18/2013 BISI DOMINGUEZ MD 789.09 ABDOMINAL PAIN OTHER SPECIFIED SITE 02/18/2013 EATON [employer] CLE[employer] SUPERVISOR, MARIBEL L 682.0 CELLULITIS AND ABSCESS OF FACE 02/18/2013 EATON [employer]IN CLEANING SUPERVISOR, MARIBEL L 789.09 ABDOMINAL PAIN OTHER SPECIFIED SITE 02/18/2013 GONZALEZ DO, ANTONIO K 682.0 CELLULITIS AND ABSCESS OF FACE 02/18/2013 GONZALEZ DO, ANTONIO K 789.09 ABDOMINAL PAIN OTHER SPECIFIED SITE 02/18/2013 EATON [employer]IN CLEANING SUPERVISOR, MARIBEL L 682.0 CELLULITIS AND ABSCESS OF FACE 02/18/2013 EATON [employer] CLEANING SUPERVISOR, MARIBEL L 789.09 ABDOMINAL PAIN OTHER SPECIFIED SITE 02/18/2013 GONZALEZ DO, ANTONIO K 682.0 CELLULITIS AND ABSCESS OF FACE 02/18/2013 GONZALEZ DO, ANTONIO K 789.09 ABDOMINAL PAIN OTHER SPECIFIED SITE 02/18/2013 GONZALEZ DO, ANTONIO K 682.0 CELLULITIS AND ABSCESS OF FACE 02/18/2013 GONZALEZ DO, ANTONIO K 789.09 ABDOMINAL PAIN OTHER SPECIFIED SITE 02/18/2013 EATON [employer] CLEANING SUPERVISOR, MARIBEL L 682.0 CELLULITIS AND ABSCESS OF FACE 02/18/2013 EATON [employer] CLEANING SUPERVISOR, MARIBEL L 789.09 ABDOMINAL PAIN OTHER SPECIFIED SITE 02/18/2013 EATON [employer]IN CLEANING SUPERVISOR, MARIBEL L 682.0 CELLULITIS AND ABSCESS OF FACE 02/18/2013 EATON [employer] CLEANING SUPERVISOR, MARIBEL L 789.09 ABDOMINAL PAIN OTHER SPECIFIED SITE 02/18/2013 GONZALEZ DO, ANTONIO K 682.0 CELLULITIS AND ABSCESS OF FACE 02/18/2013 GONZALEZ DO, ANTONIO K 789.09 ABDOMINAL PAIN OTHER SPECIFIED SITE 02/18/2013 GONZALEZ DO, ANTONIO K 682.0 CELLULITIS AND ABSCESS OF FACE 02/18/2013 GONZALEZ DO, ANTONIO K 789.09 ABDOMINAL PAIN OTHER SPECIFIED SITE 02/18/2013 BISI DOMINGUEZ MD 682.0 CELLULITIS AND ABSCESS OF FACE 02/18/2013 JACE DOMÍNGUEZ BISI 789.09 ABDOMINAL PAIN OTHER SPECIFIED SITE 03/01/2013 NODX NO DIAGNOSIS 03/01/2013 NODX NO DIAGNOSIS 03/01/2013 GONZALEZ DO, ANTONIO K NODX NO DIAGNOSIS 03/01/2013 JACE DOMÍNGUEZ, BISI NODX NO DIAGNOSIS 03/01/2013 ABDIRAHMAN CABIN CLEANING SUPERVISOR, MARIBEL Govea NODX NO DIAGNOSIS 03/01/2013 GONZALEZ DO, ANTONIO K NODX NO DIAGNOSIS 03/01/2013 EATJACKIE CABIN CLEANING SUPERVISOR, MARIBEL L NODX NO DIAGNOSIS 03/01/2013 GONZALEZ DO, ANTONIO K NODX NO DIAGNOSIS 03/01/2013 GONZALEZ DO, ANTONIO K NODX NO DIAGNOSIS 03/01/2013 EATON CABIN CLEANING SUPERVISOR, MARIBEL L NODX NO DIAGNOSIS 03/01/2013 EATON CABIN CLEANING SUPERVISOR, MARIBEL L NODX NO DIAGNOSIS 03/01/2013 GONZALEZ DO, ANTONIO K NODX NO DIAGNOSIS 03/01/2013 GONZALEZ DO, ANTONIO K NODX NO DIAGNOSIS 03/01/2013 JACE DOMÍNGUEZ, BISI NODX NO DIAGNOSIS 05/18/2014 GONZALEZ DO, ANTONIO K 401.9 HYPERTENSION, UNSPECIFIED ESSENTIAL 05/18/2014 GONZALEZ DO, ANTONIO K 401.9 HYPERTENSION, UNSPECIFIED ESSENTIAL 05/18/2014 EATJACKIE CABIN CLEANING SUPERVISORMARIBEL Delgadillo L 401.9 HYPERTENSION, UNSPECIFIED ESSENTIAL 05/18/2014 MARIBEL GARY APRN 401.9 HYPERTENSION, UNSPECIFIED ESSENTIAL 05/18/2014 GONZALEZ DO, ANTONIO K 401.9 HYPERTENSION, UNSPECIFIED ESSENTIAL 05/18/2014 GONZALEZ DO, ANTONIO K 401.9 HYPERTENSION, UNSPECIFIED ESSENTIAL 05/18/2014 JACE DOMÍNGUEZ, BISI 401.9 HYPERTENSION, UNSPECIFIED ESSENTIAL 07/07/2014 GONZALEZ DO, ANTONIO K 553.20 UNSPECIFIED VENTRAL HERNIA WITHOUT OBSTRUCTION OR GANGRENE 07/07/2014 GONZALEZ DO, ANTONIO K 789.01 ABDOMINAL PAIN RIGHT UPPER QUADRANT 07/07/2014 MARIBEL GARY APRN 553.20 UNSPECIFIED VENTRAL HERNIA WITHOUT OBSTRUCTION OR GANGRENE 07/07/2014 MARIBEL GARY APRN 789.01 ABDOMINAL PAIN RIGHT UPPER QUADRANT 07/07/2014 EATJACKIE CABIN CLEANING SUPERVISORMARIBEL Delgadillo 553.20 UNSPECIFIED VENTRAL HERNIA WITHOUT OBSTRUCTION OR GANGRENE 07/07/2014 EATMARIBEL MEJIA APRN 789.01 ABDOMINAL PAIN RIGHT UPPER QUADRANT 07/07/2014 GONZALEZ ANTONIO BENSON 553.20 UNSPECIFIED VENTRAL HERNIA WITHOUT OBSTRUCTION OR GANGRENE 07/07/2014 CARLOS ANTONIO BENSON 789.01 ABDOMINAL PAIN RIGHT UPPER QUADRANT 07/07/2014 CARLOS BENSONANTONIO K 553.20 UNSPECIFIED VENTRAL HERNIA WITHOUT OBSTRUCTION OR GANGRENE 07/07/2014 CARLOS BENSONANTONIO 789.01 ABDOMINAL PAIN RIGHT UPPER QUADRANT 07/07/2014 BISI DOMINGUEZ MD 553.20 UNSPECIFIED VENTRAL HERNIA WITHOUT OBSTRUCTION OR GANGRENE 07/07/2014 BISI DOMINGUEZ MD 789.01 ABDOMINAL PAIN RIGHT UPPER QUADRANT 07/28/2014 SHARON HOSPITALLUISA Ot 250.00 DIAB ANA WO COMPL, TYPE II OR UNSPEC TY 07/28/2014 SHARON HOSPITALLUISA Ot 553.20 VENTRAL HERNIA NOS 07/28/2014 SHARON HOSPITALL[facility] Ot 574.10 CHOLELITH W CHOLECYS NEC 11/12/2014 MARIBEL GARY SULFONATOR OPERATOR Ot 553.20 11/12/2014 MARIBEL GARY SULFONATOR OPERATOR Ot 574.20 11/12/2014 [facility] Ot 553.20 11/12/2014 [facility] Ot 574.20 11/12/2014 [place] LUISA BENSON Ot V72.63 11/12/2014 [facility] Ot V72.81 11/12/2014 [facility] Ot V74.8 11/23/2014 ANTONIO GONZALEZ DO 443.9 PERIPHERAL VASCULAR DISEASE UNSPECIFIED 11/23/2014 ANTONIO GONZALEZ DO 443.9 PERIPHERAL VASCULAR DISEASE UNSPECIFIED 11/23/2014 BISI DOMINGUEZ MD 443.9 PERIPHERAL VASCULAR DISEASE UNSPECIFIED 11/28/2014 MORRIS HERRERA SULFONATOR OPERATOR Ot 272.4 11/30/2014 RISHABH SAMUEL DO Ot 401.9 11/30/2014 RISHABH SAMUEL DO Ot 429.3 11/30/2014 RISHABH SAMUEL DO Ot 786.09 11/30/2014 RISHABH SAMUEL DO Ot 793.11 12/01/2014 JACE DOMÍNGUEZ FACC, BISI COLUNGA CCDS Ot 414.00 12/01/2014 JACE DOMÍNGUEZ FACC, ALI FACP CCDS Ot 443.9 12/01/2014 JACE DOMÍNGUEZ FACC, ALI FACP CCDS Ot 496 12/01/2014 JACE DOMÍNGUEZ FACC, ALI FACP CCDS Ot 414.00 12/01/2014 JACE DOMÍNGUEZ FACC, ALI FACP CCDS Ot 443.9 12/01/2014 JACE DOMÍNGUEZ FACC, ALI FACP CCDS Ot 496 12/02/2014 JACE DOMÍNGUEZ FACC, ALI FACP CCDS Ot 414.00 12/02/2014 JACE DOMÍNGUEZ FACC, ALI FACP CCDS Ot 443.9 12/02/2014 JACE DOMÍNGUEZ FACC, ALI FACP CCDS Ot 496 12/05/2014 MORRIS HERRERA SULFONATOR OPERATOR Ot 272.4 12/06/2014 JACE DOMÍNGUEZ FACC, ALI FACP CCDS Ot 414.00 12/06/2014 JACE DOMÍNGUEZ FACC, ALI FACP CCDS Ot 443.9 12/06/2014 JACE DOMÍNGUEZ FACC, ALI FACP CCDS Ot 496 12/07/2014 ANTONIO GONZALEZ DO 726.60 ENTHESOPATHY OF KNEE UNSPECIFIED 12/07/2014 ANTONIO GONZALEZ DO 726.60 ENTHESOPATHY OF KNEE UNSPECIFIED 12/07/2014 BISI DOMINGUEZ MD 726.60 ENTHESOPATHY OF KNEE UNSPECIFIED 12/07/2014 JACE DOMÍNGUEZ FACC, BISI FACP CCDS Ot 414.00 12/07/2014 JACE CORTEZC, BISI FACP CCDS Ot 443.9 12/07/2014 JACE CORTEZC, BISI FACP CCDS Ot 496 12/07/2014 JACE CORTEZC, BISI FACP CCDS Ot 414.00 12/07/2014 JACE DOMÍNGUEZ FACC, ALI FACP CCDS Ot 443.9 12/07/2014 JACE DOMÍNGUEZ FACC, ALI FACP CCDS Ot 496 12/14/2014 BISI DOMINGUEZ MD 274.00 GOUTY ARTHROPATHY UNSPECIFIED 12/21/2014 RISHABH SAMUEL DO Ot 401.9 12/21/2014 RISHABH SAMUEL DO Ot 429.3 12/21/2014 RISHABH SAMUEL DO Ot 786.09 12/21/2014 RISHABH SAMUEL DO Ot 793.11 03/25/2015 JACE CORTEZC, ALI FACP CCDS Ot 414.00 03/25/2015 JACE DOMÍNGUEZ [facility] CCDS Ot 443.9 03/25/2015 JACE DOMÍNGUEZ [facility] CCDS Ot 496 04/06/2015 MARIBEL GARY SULFONATOR OPERATOR Ot 724.3 04/21/2015 MARIBEL GARY SULFONATOR OPERATOR Ot 721.3 01/13/2016 NORIS NEVES MD Ot A41.9 SEPSIS, UNSPECIFIED ORGANISM 01/13/2016 NORIS NEVES MD Ot E11.9 TYPE 2 DIABETES MELLITUS WITHOUT COMPLIC 01/13/2016 NORIS NEVES MD Ot E78.5 HYPERLIPIDEMIA, UNSPECIFIED 01/13/2016 NORIS NEVES MD Ot E83.39 OTHER DISORDERS OF PHOSPHORUS METABOLISM 01/13/2016 NORIS NEVES MD Ot E83.42 HYPOMAGNESEMIA 01/13/2016 NORIS NEVES MD Ot I10 ESSENTIAL (PRIMARY) HYPERTENSION 01/13/2016 NORIS NEVES MD Ot I25.10 ATHSCL HEART DISEASE OF [place] CORONARY 01/13/2016 NORIS NEVES MD Ot I48.91 UNSPECIFIED ATRIAL FIBRILLATION 01/13/2016 NORIS NEVES MD Ot J18.9 PNEUMONIA, UNSPECIFIED ORGANISM 01/13/2016 NORIS NEVES MD Ot J44.9 CHRONIC OBSTRUCTIVE PULMONARY DISEASE, U 01/13/2016 NORIS NEVES MD Ot J67.9 01/13/2016 NORIS NEVES MD Ot Z95.5 PRESENCE OF CORONARY ANGIOPLASTY IMPLANT 01/16/[address] APRN Ot J44.9 01/16/[address] APRN Ot J84.9 02/12/2016 LIZZY GONZALEZ DOA K Ot A41.9 SEPSIS, UNSPECIFIED ORGANISM 02/12/2016 CARLOS BENSON ANTONIO K Ot D64.9 ANEMIA, UNSPECIFIED 02/12/2016 CARLOS BENSON ANTONIO K Ot E11.9 TYPE 2 DIABETES MELLITUS WITHOUT COMPLIC 02/12/2016 CARLOS BENSON ANTONIO K Ot E78.5 HYPERLIPIDEMIA, UNSPECIFIED 02/12/2016 CARLOS BENSON ANTONIO K Ot E83.42 HYPOMAGNESEMIA 02/12/2016 CARLOS BENSON ANTONIO Valentine Ot E87.6 HYPOKALEMIA 02/12/2016 LIZZY GONZALEZ DOA K Ot G47.33 OBSTRUCTIVE SLEEP APNEA (ADULT) (PEDIATR 02/12/2016 LIZZY GONZALEZ DOA K Ot I10 ESSENTIAL (PRIMARY) HYPERTENSION 02/12/2016 LIZZY GONZALEZ DOA K Ot I25.10 ATHSCL HEART DISEASE OF [place] CORONARY 02/12/2016 CARLOS BENSON ANTONIO K Ot I48.0 PAROXYSMAL ATRIAL FIBRILLATION 02/12/2016 CARLOS BENSON ANTONIO K Ot I48.91 UNSPECIFIED ATRIAL FIBRILLATION 02/12/2016 CARLOS BENSON ANTONIO K Ot J18.9 PNEUMONIA, UNSPECIFIED ORGANISM 02/12/2016 CARLOS BENSON ANTONIO K Ot J44.9 CHRONIC OBSTRUCTIVE PULMONARY DISEASE, U 02/12/2016 CARLOS BENSON ANTONIO Valentine Ot M1A.9XX0 CHRONIC GOUT, UNSPECIFIED, WITHOUT TOPHU 02/12/2016 CARLOS BENSON ANTONIO K Ot Z95.5 PRESENCE OF CORONARY ANGIOPLASTY IMPLANT 04/03/2016 JACE DOMÍNGUEZ FACC, ALI FACP CCDS Ot 414.00 CORON ATHEROSCLER NOS TYPE VESSEL, NATIV 04/03/2016 JACE DOMÍNGUEZ FACC, ALI FACP CCDS Ot 443.9 PERIPH VASCULAR DIS NOS 04/03/2016 JACE DOMÍNGUEZ FACC, ALI FACP CCDS Ot 496 CHR AIRWAY OBSTRUCT NEC 04/03/2016 JACE DOMÍNGUEZ FACC, ALI FACP CCDS Ot 414.00 CORON ATHEROSCLER NOS TYPE VESSEL, NATIV 04/03/2016 JACE DOMÍNGUEZ FACC, ALI FACP CCDS Ot 443.9 PERIPH VASCULAR DIS NOS 04/03/2016 JACE DOMÍNGUEZ FACC, ALI FACP CCDS Ot 496 CHR AIRWAY OBSTRUCT NEC 04/03/2016 MARIBEL GARY SULFONATOR OPERATOR Ot 724.3 SCIATICA 04/03/2016 MARIBEL GARY SULFONATOR OPERATOR Ot 721.3 LUMBOSACRAL SPONDYLOSIS 04/03/[address] APRN Ot J44.9 CHRONIC OBSTRUCTIVE PULMONARY DISEASE , U 04/03/[address] APRN Ot J84.9 INTERSTITIAL PULMONARY DISEASE, UNSPECIF 04/24/[address] APRN Ot G47.33 OBSTRUCTIVE SLEEP APNEA (ADULT) ( PEDIATR 04/24/2016 ARIANA, HORACIO E CABIN CLEANING SUPERVISOR Ot J18.9 PNEUMONIA, UNSPECIFIED ORGANISM 04/24/[address] CABIN CLEANING SUPERVISOR Ot J84.9 INTERSTITIAL PULMONARY DISEASE, UNSPECIF 04/24/[address] CABIN CLEANING SUPERVISOR Ot R06.02 SHORTNESS OF BREATH 04/24/[address] CABIN CLEANING SUPERVISOR Ot R91.1 SOLITARY PULMONARY NODULE 04/25/[address] CABIN CLEANING SUPERVISOR Ot J44.9 CHRONIC OBSTRUCTIVE PULMONARY DISEASE , U 04/25/[address] CABIN CLEANING SUPERVISOR Ot J84.9 INTERSTITIAL PULMONARY DISEASE, UNSPECIF 04/26/[address] CABIN CLEANING SUPERVISOR Ot G47.33 OBSTRUCTIVE SLEEP APNEA (ADULT) ( PEDIATR 04/26/[address] CABIN CLEANING SUPERVISOR Ot J18.9 PNEUMONIA, UNSPECIFIED ORGANISM 04/26/[address] CABIN CLEANING SUPERVISOR Ot J84.9 INTERSTITIAL PULMONARY DISEASE, UNSPECIF 04/26/[address] CABIN CLEANING SUPERVISOR Ot R06.02 SHORTNESS OF BREATH 04/26/2016 HORACIO LAEN CABIN CLEANING SUPERVISOR Ot R91.1 SOLITARY PULMONARY NODULE 05/16/[address] CABIN CLEANING SUPERVISOR Ot G47.33 OBSTRUCTIVE SLEEP APNEA (ADULT) ( PEDIATR 05/16/[address] CABIN CLEANING SUPERVISOR Ot J18.9 PNEUMONIA, UNSPECIFIED ORGANISM 05/16/[address] CABIN CLEANING SUPERVISOR Ot J84.9 INTERSTITIAL PULMONARY DISEASE, UNSPECIF 05/16/[address] CABIN CLEANING SUPERVISOR Ot R06.02 SHORTNESS OF BREATH 05/16/[address] CABIN CLEANING SUPERVISOR Ot R91.1 SOLITARY PULMONARY NODULE 07/29/2016 JACE DOMÍNGUEZ FACC, BISI FACP CCDS Ot 414.00 CORON ATHEROSCLER NOS TYPE VESSEL, NATIV 07/29/2016 JACE DOMÍNGUEZ FACC, BISI FACP CCDS Ot 443.9 PERIPH VASCULAR DIS NOS 07/29/2016 JACE DOMÍNGUEZ FACC, BISI FACP CCDS Ot 496 CHR AIRWAY OBSTRUCT NEC 07/29/2016 JACE DOMÍNGUEZ FACC, BISI FACP CCDS Ot 414.00 CORON ATHEROSCLER NOS TYPE VESSEL, NATIV 07/29/2016 JACE DOMÍNGUEZ FACC, BISI FACP CCDS Ot 443.9 PERIPH VASCULAR DIS NOS 07/29/2016 JACE DOMÍNGUEZ FACC, ALI FACP CCDS Ot 496 CHR AIRWAY OBSTRUCT NEC 07/29/2016 MARIBEL GARY SULFONATOR OPERATOR Ot 724.3 SCIATICA 07/29/2016 PHYLLISMARIBEL MEJIA SULFONATOR OPERATOR Ot 721.3 LUMBOSACRAL SPONDYLOSIS 07/29/[address] CABIN CLEANING SUPERVISOR Ot J44.9 CHRONIC OBSTRUCTIVE PULMONARY DISEASE , U 07/29/[address] CABIN CLEANING SUPERVISOR Ot J84.9 INTERSTITIAL PULMONARY DISEASE, UNSPECIF 07/29/[address] CABIN CLEANING SUPERVISOR Ot G47.33 OBSTRUCTIVE SLEEP APNEA (ADULT) ( PEDIATR 07/29/[address] CABIN CLEANING SUPERVISOR Ot J18.9 PNEUMONIA, UNSPECIFIED ORGANISM 07/29/[address] CABIN CLEANING SUPERVISOR Ot J84.9 INTERSTITIAL PULMONARY DISEASE, UNSPECIF 07/29/[address] CABIN CLEANING SUPERVISOR Ot R06.02 SHORTNESS OF BREATH 07/29/[address] CABIN CLEANING SUPERVISOR Ot R91.1 SOLITARY PULMONARY NODULE 07/29/[address] CABIN CLEANING SUPERVISOR Ot J18.9 PNEUMONIA, UNSPECIFIED ORGANISM 07/31/[address] CABIN CLEANING SUPERVISOR Ot J18.9 PNEUMONIA, UNSPECIFIED ORGANISM 07/31/[address] CABIN CLEANING SUPERVISOR Ot J44.9 CHRONIC OBSTRUCTIVE PULMONARY DISEASE , U 07/31/[address] CABIN CLEANING SUPERVISOR Ot J84.9 INTERSTITIAL PULMONARY DISEASE, UNSPECIF 07/31/[address] CABIN CLEANING SUPERVISOR Ot R06.02 SHORTNESS OF BREATH 07/31/[address] CABIN CLEANING SUPERVISOR Ot R91.1 SOLITARY PULMONARY NODULE 08/02/2016 JACE DOMÍNGUEZ FACC, BISI FACP CCDS Ot 414.00 CORON ATHEROSCLER NOS TYPE VESSEL, NATIV 08/02/2016 JACE DOMÍNGUEZ FACC, BISI FACP CCDS Ot 443.9 PERIPH VASCULAR DIS NOS 08/02/2016 JACE DOMÍNGUEZ FACC, BISI FACP CCDS Ot 496 CHR AIRWAY OBSTRUCT NEC 08/02/2016 JACE DOMÍNGUEZ FACC, BISI FACP CCDS Ot 414.00 CORON ATHEROSCLER NOS TYPE VESSEL, NATIV 08/02/2016 BISI DOMINGUEZ MD, FACCP CCDS Ot 443.9 PERIPH VASCULAR DIS NOS 08/02/2016 JACE MD FACC, ALI FACP CCDS Ot 496 CHR AIRWAY OBSTRUCT NEC 08/02/2016 MARIBEL GARY SULFONATOR OPERATOR Ot 724.3 SCIATICA 08/02/2016 MARIBEL GARY SULFONATOR OPERATOR Ot 721.3 LUMBOSACRAL SPONDYLOSIS 08/02/2016 HORACIO ALNE CABIN CLEANING SUPERVISOR Ot J44.9 CHRONIC OBSTRUCTIVE PULMONARY DISEASE , U 08/02/2016 ARIANAHORACIO MEJIA CABIN CLEANING SUPERVISOR Ot J84.9 INTERSTITIAL PULMONARY DISEASE, UNSPECIF 08/02/[address] CABIN CLEANING SUPERVISOR Ot G47.33 OBSTRUCTIVE SLEEP APNEA (ADULT) ( PEDIATR 08/02/2016 ARIANAHORACIO MEJIA CABIN CLEANING SUPERVISOR Ot J18.9 PNEUMONIA, UNSPECIFIED ORGANISM 08/02/[address] CABIN CLEANING SUPERVISOR Ot J84.9 INTERSTITIAL PULMONARY DISEASE, UNSPECIF 08/02/[address] Jagdish CABIN CLEANING SUPERVISOR Ot R06.02 SHORTNESS OF BREATH 08/02/[address] CABIN CLEANING SUPERVISOR Ot R91.1 SOLITARY PULMONARY NODULE 08/02/[address] CABIN CLEANING SUPERVISOR Ot J18.9 PNEUMONIA, UNSPECIFIED ORGANISM 08/02/[address] CABIN CLEANING SUPERVISOR Ot J44.9 CHRONIC OBSTRUCTIVE PULMONARY DISEASE , U 08/02/[address] CABIN CLEANING SUPERVISOR Ot J84.9 INTERSTITIAL PULMONARY DISEASE, UNSPECIF 08/02/[address] CABIN CLEANING SUPERVISOR Ot R06.02 SHORTNESS OF BREATH 08/02/[address] CABIN CLEANING SUPERVISOR Ot R91.1 SOLITARY PULMONARY NODULE 08/07/2016 JACE DOMÍNGUEZ FACC, BISI FACP CCDS Ot 414.00 CORON ATHEROSCLER NOS TYPE VESSEL, NATIV 08/07/2016 JACE DOMÍNGUEZ FACC, BISI FACP CCDS Ot 443.9 PERIPH VASCULAR DIS NOS 08/07/2016 JACE DOMÍNGUEZ FACC, BISI FACP CCDS Ot 496 CHR AIRWAY OBSTRUCT NEC 08/07/2016 JACE DOMÍNGUEZ FACC, BISI FACP CCDS Ot 414.00 CORON ATHEROSCLER NOS TYPE VESSEL, NATIV 08/07/2016 JACE DOMÍNGUEZ FACC, BISI FACP CCDS Ot 443.9 PERIPH VASCULAR DIS NOS 08/07/2016 JAEC DOMÍNGUEZ FACC, BISI FACP CCDS Ot 496 CHR AIRWAY OBSTRUCT NEC 08/07/2016 MARIBEL GARY SULFONATOR OPERATOR Ot 724.3 SCIATICA 08/07/2016 MARIBEL GARY SULFONATOR OPERATOR Ot 721.3 LUMBOSACRAL SPONDYLOSIS 08/07/[address] CABIN CLEANING SUPERVISOR Ot J44.9 CHRONIC OBSTRUCTIVE PULMONARY DISEASE , U 08/07/[address] CABIN CLEANING SUPERVISOR Ot J84.9 INTERSTITIAL PULMONARY DISEASE, UNSPECIF 08/07/[address] CABIN CLEANING SUPERVISOR Ot G47.33 OBSTRUCTIVE SLEEP APNEA (ADULT) ( PEDIATR 08/07/[address] CABIN CLEANING SUPERVISOR Ot J18.9 PNEUMONIA, UNSPECIFIED ORGANISM 08/07/[address] CABIN CLEANING SUPERVISOR Ot J84.9 INTERSTITIAL PULMONARY DISEASE, UNSPECIF 08/07/[address] CABIN CLEANING SUPERVISOR Ot R06.02 SHORTNESS OF BREATH 08/07/[address] CABIN CLEANING SUPERVISOR Ot R91.1 SOLITARY PULMONARY NODULE 08/07/[address] CABIN CLEANING SUPERVISOR Ot J18.9 PNEUMONIA, UNSPECIFIED ORGANISM 08/07/[address] CABIN CLEANING SUPERVISOR Ot J44.9 CHRONIC OBSTRUCTIVE PULMONARY DISEASE , U 08/07/[address] CABIN CLEANING SUPERVISOR Ot J84.9 INTERSTITIAL PULMONARY DISEASE, UNSPECIF 08/07/[address] CABIN CLEANING SUPERVISOR Ot R06.02 SHORTNESS OF BREATH 08/07/[address] CABIN CLEANING SUPERVISOR Ot R91.1 SOLITARY PULMONARY NODULE 08/07/[address] CABIN CLEANING SUPERVISOR Ot G47.10 HYPERSOMNIA, UNSPECIFIED 08/07/[address] CABIN CLEANING SUPERVISOR Ot J43.8 OTHER EMPHYSEMA 08/07/[address] CABIN CLEANING SUPERVISOR Ot J84.9 INTERSTITIAL PULMONARY DISEASE, UNSPECIF 08/07/[address] CABIN CLEANING SUPERVISOR Ot R06.02 SHORTNESS OF BREATH 08/13/[address] CABIN CLEANING SUPERVISOR Ot G47.33 OBSTRUCTIVE SLEEP APNEA (ADULT) ( PEDIATR 08/13/[address] Jagdish CABIN CLEANING SUPERVISOR Ot J84.9 INTERSTITIAL PULMONARY DISEASE, UNSPECIF 08/13/[address] CABIN CLEANING SUPERVISOR Ot R06.02 SHORTNESS OF BREATH 08/13/[address] CABIN CLEANING SUPERVISOR Ot R91.1 SOLITARY PULMONARY NODULE 08/21/[address] CABIN CLEANING SUPERVISOR Ot J18.9 PNEUMONIA, UNSPECIFIED ORGANISM 08/21/[address] CABIN CLEANING SUPERVISOR Ot J44.9 CHRONIC OBSTRUCTIVE PULMONARY DISEASE , U 08/21/[address] CABIN CLEANING SUPERVISOR Ot J84.9 INTERSTITIAL PULMONARY DISEASE, UNSPECIF 08/21/[address] CABIN CLEANING SUPERVISOR Ot R06.02 SHORTNESS OF BREATH 08/21/[address] CABIN CLEANING SUPERVISOR Ot R91.1 SOLITARY PULMONARY NODULE 08/23/[address] CABIN CLEANING SUPERVISOR Ot G47.10 HYPERSOMNIA, UNSPECIFIED 08/23/[address] CABIN CLEANING SUPERVISOR Ot J43.8 OTHER EMPHYSEMA 08/23/[address] CABIN CLEANING SUPERVISOR Ot J84.9 INTERSTITIAL PULMONARY DISEASE, UNSPECIF 08/23/[address] CABIN CLEANING SUPERVISOR Ot R06.02 SHORTNESS OF BREATH 09/10/2016 JACE DOMÍNGUEZ FACC, BISI FACP CCDS Ot E11.9 TYPE 2 DIABETES MELLITUS WITHOUT COMPLIC 09/10/2016 JACE DOMÍNGUEZ FACC, BISI FACP CCDS Ot G47.33 OBSTRUCTIVE SLEEP APNEA (ADULT) (PEDIATR 09/10/2016 JACE DOMÍNGUEZ FACC, BISI FACP CCDS Ot I25.10 ATHSCL HEART DISEASE OF [place] CORONARY 09/10/2016 JACE DOMÍNGUEZ FACC, BISI FACP CCDS Ot I48.0 PAROXYSMAL ATRIAL FIBRILLATION 09/10/2016 JACE DOMÍNGUEZ FACC, BISI FACP CCDS Ot J44.9 CHRONIC OBSTRUCTIVE PULMONARY DISEASE, U 09/10/2016 BISI DOMINGUEZ MD, FACC FACP CCDS Ot M79.604 PAIN IN RIGHT LEG 09/10/2016 JACE DOMÍNGUEZ FACC, ALI FACP CCDS Ot M79.605 PAIN IN LEFT LEG 09/10/2016 JACE DOMÍNGUEZ FACC, BISI FACP CCDS Ot Z79.01 RESIDENTIAL (CURRENT) USE OF ANTICOAGULANT 09/10/2016 BISI DOMINGUEZ MD, FACC FACP CCDS Ot Z79.899 OTHER RESIDENTIAL (CURRENT) DRUG THERAPY 09/10/2016 BISI DOMINGUEZ MD, FACC FACP CCDS Ot Z95.5 PRESENCE OF CORONARY ANGIOPLASTY IMPLANT 09/17/[address] CABIN CLEANING SUPERVISOR Ot G47.33 OBSTRUCTIVE SLEEP APNEA (ADULT) ( PEDIATR 09/17/[address] CABIN CLEANING SUPERVISOR Ot J84.9 INTERSTITIAL PULMONARY DISEASE, UNSPECIF 09/17/[address] CABIN CLEANING SUPERVISOR Ot R06.02 SHORTNESS OF BREATH 09/17/[address] CABIN CLEANING SUPERVISOR Ot R91.1 SOLITARY PULMONARY NODULE 10/31/[address] CABIN CLEANING SUPERVISOR Ot G47.33 OBSTRUCTIVE SLEEP APNEA (ADULT) ( PEDIATR 10/31/[address] CABIN CLEANING SUPERVISOR Ot J18.9 PNEUMONIA, UNSPECIFIED ORGANISM 10/31/[address] CABIN CLEANING SUPERVISOR Ot J84.9 INTERSTITIAL PULMONARY DISEASE, UNSPECIF 10/31/[address] CABIN CLEANING SUPERVISOR Ot R06.02 SHORTNESS OF BREATH 10/31/[address] CABIN CLEANING SUPERVISOR Ot R91.1 SOLITARY PULMONARY NODULE 10/31/[address] CABIN CLEANING SUPERVISOR Ot J18.9 PNEUMONIA, UNSPECIFIED ORGANISM 10/31/[address] CABIN CLEANING SUPERVISOR Ot J44.9 CHRONIC OBSTRUCTIVE PULMONARY DISEASE , U 10/31/[address] CABIN CLEANING SUPERVISOR Ot J84.9 INTERSTITIAL PULMONARY DISEASE, UNSPECIF 10/31/[address] CABIN CLEANING SUPERVISOR Ot R06.02 SHORTNESS OF BREATH 10/31/[address] CABIN CLEANING SUPERVISOR Ot R91.1 SOLITARY PULMONARY NODULE 10/31/[address] CABIN CLEANING SUPERVISOR Ot G47.10 HYPERSOMNIA, UNSPECIFIED 10/31/[address] CABIN CLEANING SUPERVISOR Ot J43.8 OTHER EMPHYSEMA 10/31/[address] CABIN CLEANING SUPERVISOR Ot J84.9 INTERSTITIAL PULMONARY DISEASE, UNSPECIF 10/31/[address] CABIN CLEANING SUPERVISOR Ot R06.02 SHORTNESS OF BREATH 10/31/[address] CABIN CLEANING SUPERVISOR Ot G47.33 OBSTRUCTIVE SLEEP APNEA (ADULT) ( PEDIATR 10/31/[address] CABIN CLEANING SUPERVISOR Ot J84.9 INTERSTITIAL PULMONARY DISEASE, UNSPECIF 10/31/[address] CABIN CLEANING SUPERVISOR Ot R06.02 SHORTNESS OF BREATH 10/31/[address] CABIN CLEANING SUPERVISOR Ot R91.1 SOLITARY PULMONARY NODULE [address] CABIN CLEANING SUPERVISOR Ot G47.33 OBSTRUCTIVE SLEEP APNEA (ADULT) ( PEDIATR 2016 ARIANADAVID MEJIAINE E CABIN CLEANING SUPERVISOR Ot J84.9 INTERSTITIAL PULMONARY DISEASE, UNSPECIF 2016 ARIANA, HORACIO E CABIN CLEANING SUPERVISOR Ot R06.02 SHORTNESS OF BREATH 2016 ARIANA, HORACIO E CABIN CLEANING SUPERVISOR Ot R91.1 SOLITARY PULMONARY NODULE 11/11/[address] E CABIN CLEANING SUPERVISOR Ot G47.33 OBSTRUCTIVE SLEEP APNEA (ADULT) ( PEDIATR 11/11/2016 ARIANADAVIDHORACIO E CABIN CLEANING SUPERVISOR Ot J84.9 INTERSTITIAL PULMONARY DISEASE, UNSPECIF 11/11/2016 ARIANA, HORACIO E CABIN CLEANING SUPERVISOR Ot R06.02 SHORTNESS OF BREATH 11/11/2016 ARIANA, HORACIO E CABIN CLEANING SUPERVISOR Ot R91.1 SOLITARY PULMONARY NODULE 11/14/2016 ARIANA, HORACIO E CABIN CLEANING SUPERVISOR Ot G47.33 OBSTRUCTIVE SLEEP APNEA (ADULT) ( PEDIATR 11/14/2016 ARIANADAVID MEJIAINE E CABIN CLEANING SUPERVISOR Ot J84.9 INTERSTITIAL PULMONARY DISEASE, UNSPECIF 11/14/2016 ARIANADAVID MEJIAINE E CABIN CLEANING SUPERVISOR Ot R06.02 SHORTNESS OF BREATH 11/14/2016 ARIANA, HORACIO E CABIN CLEANING SUPERVISOR Ot R91.1 SOLITARY PULMONARY NODULE 11/15/2016 ARIANADAVID MEJIAINE E CABIN CLEANING SUPERVISOR Ot G47.33 OBSTRUCTIVE SLEEP APNEA (ADULT) ( PEDIATR 11/15/2016 ARIANADAVID MEJIAINE E CABIN CLEANING SUPERVISOR Ot J84.9 INTERSTITIAL PULMONARY DISEASE, UNSPECIF 11/15/2016 ARIANADAVID MEJIAINE E CABIN CLEANING SUPERVISOR Ot R06.02 SHORTNESS OF BREATH 11/15/[address] E CABIN CLEANING SUPERVISOR Ot R91.1 SOLITARY PULMONARY NODULE 02/12/[address] E CABIN CLEANING SUPERVISOR Ot G47.33 OBSTRUCTIVE SLEEP APNEA (ADULT) ( PEDIATR 02/12/2017 ARIANADAVID MEJIAINE E CABIN CLEANING SUPERVISOR Ot J84.9 INTERSTITIAL PULMONARY DISEASE, UNSPECIF 02/12/2017 ARIANADAVID MEJIAINE E CABIN CLEANING SUPERVISOR Ot R06.02 SHORTNESS OF BREATH 02/12/[address] E CABIN CLEANING SUPERVISOR Ot R91.1 SOLITARY PULMONARY NODULE 03/11/2017 ALF GOSS MD Ot D64.9 ANEMIA, UNSPECIFIED 03/11/2017 ALF GOSS MD Ot E11.9 TYPE 2 DIABETES MELLITUS WITHOUT COMPLIC 03/11/2017 GAULT MD, ALF R Ot E78.5 HYPERLIPIDEMIA, UNSPECIFIED 03/11/2017 ANA PAULA DOMÍNGUEZ, ALF Dixon Ot E83.42 HYPOMAGNESEMIA 03/11/2017 ALF GOSS MD Ot F32.9 MAJOR DEPRESSIVE DISORDER, SINGLE EPISOD 03/11/2017 ALF GOSS MD Ot F41.9 ANXIETY DISORDER, UNSPECIFIED 03/11/2017 ALF GOSS MD Ot I10 ESSENTIAL (PRIMARY) HYPERTENSION 03/11/2017 ALF GOSS MD Ot I25.10 ATHSCL HEART DISEASE OF [place] CORONARY 03/11/2017 ALF GOSS MD Ot I48.0 PAROXYSMAL ATRIAL FIBRILLATION 03/11/2017 ALF GOSS MD Ot J18.9 PNEUMONIA, UNSPECIFIED ORGANISM 03/11/2017 ALF GOSS MD Ot J44.0 CHRONIC OBSTRUCTIVE PULMON DISEASE W ACU 03/11/2017 ALF GOSS MD Ot K21.9 GASTRO-ESOPHAGEAL REFLUX DISEASE WITHOUT 03/11/2017 ALF GOSS MD Ot R91.8 OTHER NONSPECIFIC ABNORMAL FINDING OF [place] 03/21/2017 MARIBEL GARY SULFONATOR OPERATOR Ot 553.20 VENTRAL HERNIA NOS 03/21/2017 MARIBEL GARY SULFONATOR OPERATOR Ot 574.20 CHOLELITHIASIS NOS 03/21/2017 LUISA SYED DO Ot 553.20 VENTRAL HERNIA NOS 03/21/2017 LUISA SYED DO Ot 574.20 CHOLELITHIASIS NOS 03/21/2017 LUISA SYED DO Ot V72.63 PRE-PROCEDURAL LABORATORY EXAMINATION 03/21/2017 LUISA SYED DO Ot V72.81 [id number] CARDIOVASCULAR 03/21/2017 LUISA SYED DO Ot V74.8 SCREEN-BACTERIAL DIS NEC 03/26/[address]N Ot G47.33 OBSTRUCTIVE SLEEP APNEA (ADULT) ( PEDIATR 03/26/[address] APRN Ot J84.9 INTERSTITIAL PULMONARY DISEASE, UNSPECIF 03/26/[address] APRN Ot R06.02 SHORTNESS OF BREATH 03/26/[address] APRN Ot R91.1 SOLITARY PULMONARY NODULE 03/27/2017 VIELKA DOMÍNGUEZ, SHEREEN Araiza Ot D12.3 BENIGN NEOPLASM OF TRANSVERSE COLON 03/27/2017 VIELKA DOMÍNGUEZ, SHEREEN Araiza Ot E11.9 TYPE 2 DIABETES MELLITUS WITHOUT COMPLIC 03/27/2017 VIELKA DOMÍNGUEZ, SHEREEN Araiza Ot I10 ESSENTIAL (PRIMARY) HYPERTENSION 03/27/2017 VIELKA DOMÍNGUEZ, SHEREEN Araiza Ot J44.9 CHRONIC OBSTRUCTIVE PULMONARY DISEASE, U 03/27/2017 VIELKA DOMÍNGUEZ, SHEREEN Araiza Ot K21.9 GASTRO-ESOPHAGEAL REFLUX DISEASE WITHOUT 03/27/2017 VIELKA DOMÍNGUEZ, SHEREEN Araiza Ot K64.4 RESIDUAL HEMORRHOIDAL SKIN TAGS 03/27/2017 VIELKA DOMÍNGUEZ, SHEREEN Araiza Ot K92.1 MELENA 03/27/2017 VIELKA DOMÍNGUEZ, SHEREEN Araiza Ot Z79.899 OTHER RESIDENTIAL (CURRENT) DRUG THERAPY 04/22/[address] APRN Ot J84.9 INTERSTITIAL PULMONARY DISEASE, UNSPECIF 04/22/[address] APRN Ot J84.9 INTERSTITIAL PULMONARY DISEASE, UNSPECIF 04/22/[address] APRN Ot J84.9 INTERSTITIAL PULMONARY DISEASE, UNSPECIF Procedures Code Description [place] [address] ROUTINE VENIPUNCTURE 06/18/2012 63991 BMP 06/18/2012 1629741 GFR CALC 2011 30382 A1C (IN-HOUSE) 93696 HEMOCCULT 2011 65279 CULTURE STOOL 05/2012 16803 STOOL FOR O & P 10/03/2012 51407 CLOSTRIDIUM (C-DIFF) 10/03/2012 60047 ROUTINE VENIPUNCTURE 11/16/2012 08961 CMP 11/16/2012 19549 LIPID PANEL 11/16 [id number] GFR CALC (RESULT ONLY) 11/16/2012 13594 A1C (RML) 2012 49640 OXIMETRY 2012 2000F BLOOD PRESSURE CHECK 03/01/2013 [id number] GFR CALC (RESULT ONLY) 11/12/2013 43699 CMP 11/12/2013 47185 LIPID PANEL 11/12 56105 ROUTINE VENIPUNCTURE 11/15/2013 68426 A1C (IN-HOUSE) 99390 A1C (IN-HOUSE) 71918 NEBULIZER TREATMENT 04/06/2014 J7613 ALBUTEROL UNIT DOSE FORM INHALED 04/06/2014 51125 OXIMETRY 2013 Cardiolog Bisi Dominguez 04/06/2014 Pulmonary Katja Rishabh 04/06/2014 16456 ROUTINE VENIPUNCTURE 04/26/2014 86033 MICRO ALBUMIN-IN HOUSE 04/26/2014 40507 CMP 04/26/2014 70922 LIPID PANEL 04/26 [id number] GFR CALC (RESULT ONLY) 04/26/2014 51514 MAGNESIUM 2013 89513 TSH 04/26/2014 22495 US CAROTID DOPPLER 05/18/2014 52134 OXIMETRY 2013 99623 US GALLBLADDER ULTRASOUND 07/07/2014 General S Luisa Syed 07/07/2014 18250 A1C (IN-HOUSE) 33462 ROUTINE VENIPUNCTURE 11/08/2014 06971 CMP 11/08/2014 25822 LIPID PANEL 11/08 [id number] GFR CALC (RESULT ONLY) 11/08/2014 98485 NUCLEAR STRESS TESTING 12/01/2014 23488 ROUTINE VENIPUNCTURE 12/07/2014 03705 RENAL PROFILE 08/2015 62812 URIC ACID 2014 03281 CBC 12/07/2014 24147 RA FACTOR 2014 91996 DRAIN/INJECT JOINT/BURSA 12/07/2014 49667 ROUTINE VENIPUNCTURE 12/09/2014 41428 MICRO ALBUMIN-IN HOUSE 12/09/2014 46702 A1C (IN-HOUSE) 50177 CMP 12/09/2014 49796 LIPID PANEL 12/09 [id number] GFR CALC (RESULT ONLY) 12/09/2014 57910 HEPATITIS PROFILE 12/09/2014 35721 HEMAL 12/21/2014 32078 OXIMETRY 2014 Results Test Result Range Automated blood complete blood count (hemogram) panel - 09/10/16 10:05 Blood leukocytes automated count (number/volume) 9.2 10*3/ uL 4.3-11.0 Blood erythrocytes automated count (number/volume) 4.64 10*6 /uL 4.35-5.85 Venous blood hemoglobin measurement (mass/volume) 13.5 g/dL 13.3-17.7 Blood hematocrit (volume fraction) 41 % 40-54 Automated erythrocyte mean corpuscular volume 89 [foz_us] 80-99 Automated erythrocyte mean corpuscular hemoglobin (mass per erythrocyte) 29 pg 25-34 Automated erythrocyte mean corpuscular hemoglobin concentration measurement ( mass/volume) 33 g/dL 32-36 Automated erythrocyte distribution width ratio 14.3 % 10.0-14.5 Automated blood platelet count (count/volume) 230 10*3/uL 130-400 Automated blood platelet mean volume measurement 9.7 [foz_us ] 7.4-10.4 PT panel in platelet poor plasma by coagulation assay - 09/10/16 10:05 Prothrombin time (PT) in platelet poor plasma by coagulation assay 14.3 s 12.2-14.7 INR in platelet poor plasma or blood by coagulation assay 1.1 0.8-1.4 Activated partial thromboplastin time (aPTT) in platelet poor plasma bycoagulation assay - 09/10/16 10:05 Activated partial thromboplastin time (aPTT) in platelet poor plasma bycoagulation assay 25 s 24-35 Comprehensive metabolic panel - 09/10/16 10:05 Serum or plasma sodium measurement (moles/volume) 137 mmol/ L 135-145 Serum or plasma potassium measurement (moles/volume) 4.1 mmol/L 3.6-5.0 Serum or plasma chloride measurement (moles/volume) 101 mmol /L 98-107 Carbon dioxide 26 mmol/L 21-32 Serum or plasma anion gap determination (moles/volume) 10 mmol/L 5-14 Serum or plasma urea nitrogen measurement (mass/volume) 28 mg/dL 7-18 Serum or plasma creatinine measurement (mass/volume) 0.81 mg /dL 0.60-1.30 Serum or plasma urea nitrogen/creatinine mass ratio 35 NRG Serum or plasma creatinine measurement with calculation of estimated glomerular filtration rate > NRG Serum or plasma glucose measurement (mass/volume) 122 mg/dL 70-105 Serum or plasma calcium measurement (mass/volume) 10.0 mg/ dL 8.5-10.1 Serum or plasma total bilirubin measurement (mass/volume) 0.4 mg/dL 0.1-1.0 Serum or plasma alkaline phosphatase measurement (enzymatic activity/volume) 61 U/L 40-136 Serum or plasma aspartate aminotransferase measurement (enzymatic activity/ volume) 28 U/L 5-34 Serum or plasma alanine aminotransferase measurement (enzymatic activity/volume ) 29 U/L 0-55 Serum or plasma protein measurement (mass/volume) 7.4 g/dL 6.4-8.2 Serum or plasma albumin measurement (mass/volume) 4.1 g/dL 3.2-4.5 Lipid 1996 panel - 09/10/16 10:05 Serum or plasma triglyceride measurement (mass/volume) 221 mg/dL <150 Serum or plasma cholesterol measurement (mass/volume) 141 mg /dL < 200 Serum or plasma cholesterol in HDL measurement (mass/volume) 27 mg/dL 40-60 Cholesterol in LDL [mass/volume] in serum or plasma by direct assay 81 mg/dL 1-129 Serum or plasma cholesterol in VLDL measurement (mass/volume) 44 mg/dL 5-40 Methicillin resistant Staphylococcus aureus (MRSA) screening culture - 10:05 Methicillin resistant Staphylococcus aureus (MRSA) screening culture NEG NRG Complete blood count (CBC) with automated white blood cell (WBC) differential - 03/09/17 13:20 Blood leukocytes automated count (number/volume) 17.0 10*3/ uL 4.3-11.0 Blood erythrocytes automated count (number/volume) 4.61 10*6 /uL 4.35-5.85 Venous blood hemoglobin measurement (mass/volume) 13.7 g/dL 13.3-17.7 Blood hematocrit (volume fraction) 42 % 40-54 Automated erythrocyte mean corpuscular volume 91 [foz_us] 80-99 Automated erythrocyte mean corpuscular hemoglobin (mass per erythrocyte) 30 pg 25-34 Automated erythrocyte mean corpuscular hemoglobin concentration measurement ( mass/volume) 33 g/dL 32-36 Automated erythrocyte distribution width ratio 14.0 % 10.0-14.5 Automated blood platelet count (count/volume) 301 10*3/uL 130-400 Automated blood platelet mean volume measurement 9.7 [foz_us ] 7.4-10.4 Automated blood neutrophils/100 leukocytes 79 % 42-75 Automated blood lymphocytes/100 leukocytes 12 % 12-44 Blood monocytes/100 leukocytes 7 % 0-12 Automated blood eosinophils/100 leukocytes 2 % 0-10 Automated blood basophils/100 leukocytes 1 % 0-10 Blood neutrophils automated count (number/volume) 13.5 10*3 1.8-7.8 Blood lymphocytes automated count (number/volume) 2.0 10*3 1.0-4.0 Blood monocytes automated count (number/volume) 1.2 10*3 0.0-1.0 Automated eosinophil count 0.3 10*3/uL 0.0-0.3 Automated blood basophil count (count/volume) 0.1 10*3/uL 0.0-0.1 PT panel in platelet poor plasma by coagulation assay - 03/09/17 13:20 Prothrombin time (PT) in platelet poor plasma by coagulation assay 17.1 s 12.2-14.7 INR in platelet poor plasma or blood by coagulation assay 1.4 0.8-1.4 Activated partial thromboplastin time (aPTT) in platelet poor plasma bycoagulation assay - 03/09/17 13:20 Activated partial thromboplastin time (aPTT) in platelet poor plasma bycoagulation assay 35 s 24-35 Blood lactic acid measurement (moles/volume) - 03/09/17 13:20 Blood lactic acid measurement (moles/volume) 1.77 mmol/L 0.50-2.00 Blood manual differential performed detection - 03/09/17 13:20 Blood monocytes/100 leukocytes 9 % NRG Manual blood segmented neutrophils/100 leukocytes 78 % NRG Blood band neutrophils/100 leukocytes 0 % NRG Manual blood lymphocytes/100 leukocytes 13 % NRG Manual eosinophils/100 leukocytes in nose 0 % NRG Manual blood basophils/100 leukocytes 0 % NRG Blood erythrocyte morphology finding identification NORMAL NRG Serum or plasma lithium measurement (moles/volume) - 03/09/17 13:20 BNP level < pg/mL <100.0 Bacterial blood culture - 03/09/17 13:20 Bacterial blood culture NG [facility] Comprehensive metabolic panel - 03/09/17 14:04 Serum or plasma sodium measurement (moles/volume) 135 mmol/ L 135-145 Serum or plasma potassium measurement (moles/volume) 3.4 mmol/L 3.6-5.0 Serum or plasma chloride measurement (moles/volume) 101 mmol /L 98-107 Carbon dioxide 22 mmol/L 21-32 Serum or plasma anion gap determination (moles/volume) 12 mmol/L 5-14 Serum or plasma urea nitrogen measurement (mass/volume) 19 mg/dL 7-18 Serum or plasma creatinine measurement (mass/volume) 0.68 mg /dL 0.60-1.30 Serum or plasma urea nitrogen/creatinine mass ratio 28 NRG Serum or plasma creatinine measurement with calculation of estimated glomerular filtration rate > NRG Serum or plasma glucose measurement (mass/volume) 144 mg/dL 70-105 Serum or plasma calcium measurement (mass/volume) 9.8 mg/dL 8.5-10.1 Serum or plasma total bilirubin measurement (mass/volume) 0.5 mg/dL 0.1-1.0 Serum or plasma alkaline phosphatase measurement (enzymatic activity/volume) 55 U/L 40-136 Serum or plasma aspartate aminotransferase measurement (enzymatic activity/ volume) 22 U/L 5-34 Serum or plasma alanine aminotransferase measurement (enzymatic activity/volume ) 35 U/L 0-55 Serum or plasma protein measurement (mass/volume) 6.9 g/dL 6.4-8.2 Serum or plasma albumin measurement (mass/volume) 3.6 g/dL 3.2-4.5 Magnesium - 03/09/17 14:04 Magnesium 1.3 mg/dL 1.8-2.4 Serum or plasma troponin i.cardiac measurement (mass/volume) - 03/09/17 14:04 Serum or plasma troponin i.cardiac measurement (mass/volume) < ng/mL <0.30 Myoglobin, serum - 03/09/17 14:04 Myoglobin, serum 329.3 ng/mL 10.0-92.0 Bacterial blood culture - 03/09/17 14:04 Bacterial blood culture NG NRG Stool occult blood screen - 03/10/17 14:00 Stool gastrointestinal hemoglobin detection POSITIVE NEGATIVE Vancomycin trough - 03/10/17 16:27 Vancomycin trough 12.0 ug/mL 10.0-20.0 Complete blood count (CBC) with automated white blood cell (WBC) differential - 03/11/17 04:35 Blood leukocytes automated count (number/volume) 9.8 10*3/ uL 4.3-11.0 Blood erythrocytes automated count (number/volume) 3.99 10*6 /uL 4.35-5.85 Venous blood hemoglobin measurement (mass/volume) 12.0 g/dL 13.3-17.7 Blood hematocrit (volume fraction) 37 % 40-54 Automated erythrocyte mean corpuscular volume 92 [foz_us] 80-99 Automated erythrocyte mean corpuscular hemoglobin (mass per erythrocyte) 30 pg 25-34 Automated erythrocyte mean corpuscular hemoglobin concentration measurement ( mass/volume) 33 g/dL 32-36 Automated erythrocyte distribution width ratio 13.9 % 10.0-14.5 Automated blood platelet count (count/volume) 244 10*3/uL 130-400 Automated blood platelet mean volume measurement 9.5 [foz_us ] 7.4-10.4 Automated blood neutrophils/100 leukocytes 77 % 42-75 Automated blood lymphocytes/100 leukocytes 12 % 12-44 Blood monocytes/100 leukocytes 7 % 0-12 Automated blood eosinophils/100 leukocytes 4 % 0-10 Automated blood basophils/100 leukocytes 0 % 0-10 Blood neutrophils automated count (number/volume) 7.5 10*3 1.8-7.8 Blood lymphocytes automated count (number/volume) 1.2 10*3 1.0-4.0 Blood monocytes automated count (number/volume) 0.6 10*3 0.0-1.0 Automated eosinophil count 0.4 10*3/uL 0.0-0.3 Automated blood basophil count (count/volume) 0.0 10*3/uL 0.0-0.1 Comprehensive metabolic panel - 03/11/17 04:35 Serum or plasma sodium measurement (moles/volume) 141 mmol/ L 135-145 Serum or plasma potassium measurement (moles/volume) 4.7 mmol/L 3.6-5.0 Serum or plasma chloride measurement (moles/volume) 110 mmol /L 98-107 Carbon dioxide 21 mmol/L 21-32 Serum or plasma anion gap determination (moles/volume) 10 mmol/L 5-14 Serum or plasma urea nitrogen measurement (mass/volume) 17 mg/dL 7-18 Serum or plasma creatinine measurement (mass/volume) 0.65 mg /dL 0.60-1.30 Serum or plasma urea nitrogen/creatinine mass ratio 26 NRG Serum or plasma creatinine measurement with calculation of estimated glomerular filtration rate > NRG Serum or plasma glucose measurement (mass/volume) 186 mg/dL 70-105 Serum or plasma calcium measurement (mass/volume) 7.8 mg/dL 8.5-10.1 Serum or plasma total bilirubin measurement (mass/volume) 0.3 mg/dL 0.1-1.0 Serum or plasma alkaline phosphatase measurement (enzymatic activity/volume) 45 U/L 40-136 Serum or plasma aspartate aminotransferase measurement (enzymatic activity/ volume) 15 U/L 5-34 Serum or plasma alanine aminotransferase measurement (enzymatic activity/volume ) 29 U/L 0-55 Serum or plasma protein measurement (mass/volume) 5.9 g/dL 6.4-8.2 Serum or plasma albumin measurement (mass/volume) 3.1 g/dL 3.2-4.5 Magnesium - 03/11/17 04:35 Magnesium 1.1 mg/dL 1.8-2.4 Lipid 1996 panel - 03/11/17 04:35 Serum or plasma triglyceride measurement (mass/volume) 132 mg/dL <150 Serum or plasma cholesterol measurement (mass/volume) 88 mg/ dL < 200 Serum or plasma cholesterol in HDL measurement (mass/volume) 23 mg/dL 40-60 Cholesterol in LDL [mass/volume] in serum or plasma by direct assay 44 mg/dL 1-129 Serum or plasma cholesterol in VLDL measurement (mass/volume) 26 mg/dL 5-40 Complete blood count (CBC) with automated white blood cell (WBC) differential - 05/02/17 13:48 Blood leukocytes automated count (number/volume) 13.4 10*3/ uL 4.3-11.0 Blood erythrocytes automated count (number/volume) 5.03 10*6 /uL 4.35-5.85 Venous blood hemoglobin measurement (mass/volume) 14.6 g/dL 13.3-17.7 Blood hematocrit (volume fraction) 44 % 40-54 Automated erythrocyte mean corpuscular volume 88 [foz_us] 80-99 Automated erythrocyte mean corpuscular hemoglobin (mass per erythrocyte) 29 pg 25-34 Automated erythrocyte mean corpuscular hemoglobin concentration measurement ( mass/volume) 33 g/dL 32-36 Automated erythrocyte distribution width ratio 14.7 % 10.0-14.5 Automated blood platelet count (count/volume) 278 10*3/uL 130-400 Automated blood platelet mean volume measurement 9.8 [foz_us ] 7.4-10.4 Automated blood neutrophils/100 leukocytes 71 % 42-75 Automated blood lymphocytes/100 leukocytes 18 % 12-44 Blood monocytes/100 leukocytes 9 % 0-12 Automated blood eosinophils/100 leukocytes 1 % 0-10 Automated blood basophils/100 leukocytes 0 % 0-10 Blood neutrophils automated count (number/volume) 9.5 10*3 1.8-7.8 Blood lymphocytes automated count (number/volume) 2.4 10*3 1.0-4.0 Blood monocytes automated count (number/volume) 1.3 10*3 0.0-1.0 Automated eosinophil count 0.2 10*3/uL 0.0-0.3 Automated blood basophil count (count/volume) 0.1 10*3/uL 0.0-0.1 Comprehensive metabolic panel - 05/02/17 13:48 Serum or plasma sodium measurement (moles/volume) 134 mmol/ L 135-145 Serum or plasma potassium measurement (moles/volume) 4.1 mmol/L 3.6-5.0 Serum or plasma chloride measurement (moles/volume) 103 mmol /L 98-107 Carbon dioxide 21 mmol/L 21-32 Serum or plasma anion gap determination (moles/volume) 10 mmol/L 5-14 Serum or plasma urea nitrogen measurement (mass/volume) 20 mg/dL 7-18 Serum or plasma creatinine measurement (mass/volume) 0.76 mg /dL 0.60-1.30 Serum or plasma urea nitrogen/creatinine mass ratio 26 NRG Serum or plasma creatinine measurement with calculation of estimated glomerular filtration rate > NRG Serum or plasma glucose measurement (mass/volume) 244 mg/dL 70-105 Serum or plasma calcium measurement (mass/volume) 9.9 mg/dL 8.5-10.1 Serum or plasma total bilirubin measurement (mass/volume) 0.4 mg/dL 0.1-1.0 Serum or plasma alkaline phosphatase measurement (enzymatic activity/volume) 65 U/L 40-136 Serum or plasma aspartate aminotransferase measurement (enzymatic activity/ volume) 24 U/L 5-34 Serum or plasma alanine aminotransferase measurement (enzymatic activity/volume ) 38 U/L 0-55 Serum or plasma protein measurement (mass/volume) 7.2 g/dL 6.4-8.2 Serum or plasma albumin measurement (mass/volume) 3.8 g/dL 3.2-4.5 Encounters ACCT No. Visit Date/Time Discharge Status Pt. Type Provider Facility Loc./Unit Complaint [id number] 12/21/2014 08:18:00 12/21/2014 23: 59:59 CLS Outpatient BISI DOMINGUEZ MD [id number] 12/09/2014 08:39:00 12/09/2014 23: 59:59 CLS Outpatient ANTONIO GONZALEZ DO [id number] 12/07/2014 11:20:00 12/07/2014 23: 59:59 CLS Outpatient ANTONIO GONZALEZ DO [id number] 11/23/2014 08:18:00 11/23/2014 23: 59:59 CLS Outpatient BISI DOMINGUEZ MD [id number] 11/08/2014 08:22:00 11/08/2014 23: 59:59 CLS Outpatient EATON DANIELLEMARIBEL [id number] 07/07/2014 08:45:00 07/07/2014 23: 59:59 CLS Outpatient CARLOS BENSONANTONIO [id number] 07/07/2014 08:45:00 07/07/2014 23: 59:59 CLS Outpatient EATON [employer] Delgadillo [id number] 05/18/2014 09:53:00 05/18/2014 23: 59:59 CLS Outpatient CARLOS DOANTONIO [id number] 04/26/2014 11:56:00 04/26/2014 23: 59:59 CLS Outpatient EATJACKIE BAIRESMARIBEL Delgadillo [id number] 04/06/2014 10:47:00 04/06/2014 23: 59:59 CLS Outpatient CARLOS BENSON ANTONIO K [id number] 11/23/2013 09:18:00 11/23/2013 23: 59:59 CLS Outpatient EATON [employer] Delgadillo [id number] 11/12/2013 08:41:00 11/12/2013 23: 59:59 CLS Outpatient BISI DOMINGUEZ MD [id number] 05/20/2013 14:38:00 05/20/2013 23: 59:59 CLS Outpatient CARLOS BENSON ANTONIO K [id number] 01/13/2013 08:26:00 01/13/2013 23: 59:59 CLS Outpatient EATON [employer] Delgadillo [id number] 12/29/2012 17:58:00 12/29/2012 23: 59:59 CLS Outpatient [id number] 12/15/2012 14:30:00 12/15/2012 23: 59:59 CLS Outpatient MAXX JIMENEZ [id number] 11/23/2012 08:27:00 11/23/2012 23: 59:59 CLS Outpatient [id number] 11/16/2012 08:53:00 11/16/2012 23: 59:59 CLS Outpatient [id number] 10/15/2012 09:46:00 10/15/2012 23: 59:59 CLS Outpatient [id number] 09/30/2012 08:22:00 09/30/2012 23: 59:59 CLS Outpatient [id number] 08/18/2012 10:41:00 08/18/2012 23: 59:59 CLS Outpatient MARIBEL GARY APRN [id number] 03/01/2013 15:23:00 Document Registration [id number] 02/24/2013 00:00:00 Document Registration [id number] 02/18/2013 09:59:00 Document Registration
== END 2017-05-02 15:52 | disposition home or self-care (01) ==
LOC: EDUNIT# 13:12 → ER 13:14
DX: S30.1XXA Contusion of abdominal wall, initial encounter (principal); A09 Infectious gastroenteritis and colitis, unspecified; K21.9 Gastro-esophageal reflux disease without esophagitis; F32.9 Major depressive disorder, single episode, unspecified; I10 Essential (primary) hypertension; F41.9 Anxiety disorder, unspecified; E11.9 Type 2 diabetes mellitus without complications; E78.00 Pure hypercholesterolemia, unspecified; I25.10 Atherosclerotic heart disease of native coronary artery without angina pectoris; I48.91 Unspecified atrial fibrillation; G47.30 Sleep apnea, unspecified; M10.9 Gout, unspecified; M19.90 Unspecified osteoarthritis, unspecified site; Z79.84 Long term (current) use of oral hypoglycemic drugs; Z87.442 Personal history of urinary calculi; Z77.22 Contact with and (suspected) exposure to environmental tobacco smoke (acute) (chronic); Z87.19 Personal history of other diseases of the digestive system; Z90.49 Acquired absence of other specified parts of digestive tract; Z95.5 Presence of coronary angioplasty implant and graft; Z86.010 Personal history of colon polyps; X58.XXXA Exposure to other specified factors, initial encounter
CPT/HCPCS: 36415; 74177; 80053; 85025; 96360

== ENCOUNTER 2017-05-20 18:50 | Emergency (ER) | payer MEDICARE ==
[~2017-05-20] VITALS: Ht 167.6 cm; Wt 78.0 kg
[~2017-05-20 18:50] MED LIST changes: +CIPR-225 PO; +METR500T PO
[2017-05-20 20:12] LABS: BASOPHILS % (AUTO) 0 % (0-10); EOSINOPHILS # (AUTO) 0.3 10^3/uL (0.0-0.3); EOSINOPHILS % (AUTO) 5 % (0-10); LYMPHOCYTES # (AUTO) 1.8 X 10^3 (1.0-4.0); LYMPHOCYTES % (AUTO) 26 % (12-44); MEAN CORPUSCULAR HEMOGLOBIN 29 PG (25-34); MEAN CORPUSCULAR HGB CONC 33 G/DL (32-36); MEAN CORPUSCULAR VOLUME 90 FL (80-99); MEAN PLATELET VOLUME 9.7 FL (7.4-10.4); MONOCYTES # (AUTO) 0.8 X 10^3 (0.0-1.0); MONOCYTES % (AUTO) 12 % (0-12); NEUTROPHILS # (AUTO) 3.9 X 10^3 (1.8-7.8); NEUTROPHILS % (AUTO) 57 % (42-75); PLATELET COUNT 166 10^3/uL (130-400); RED BLOOD COUNT 4.29 10^6/uL (4.35-5.85); RED CELL DISTRIBUTION WIDTH 14.6 % (10.0-14.5); WHITE BLOOD COUNT 6.9 10^3/uL (4.3-11.0)
[2017-05-20 20:29] LABS: ALANINE AMINOTRANSFERASE 33 U/L (0-55); ALBUMIN 3.5 GM/DL (3.2-4.5); ANION GAP 15 MMOL/L (5-14); ASPARTATE AMINO TRANSFERASE 22 U/L (5-34); BILIRUBIN,TOTAL 0.3 MG/DL (0.1-1.0); BLOOD UREA NITROGEN 20 MG/DL (7-18); BUN/CREATININE RATIO 27; CARBON DIOXIDE 19 MMOL/L (21-32); CHLORIDE 105 MMOL/L (98-107); CREATININE SERUM 0.74 MG/DL (0.60-1.30); GFR ESTIMATED > 60; GLUCOSE 224 MG/DL (70-105); LIPASE 53 U/L (8-78); MAGNESIUM 1.1 MG/DL (1.8-2.4); POTASSIUM 3.5 MMOL/L (3.6-5.0); SODIUM 139 MMOL/L (135-145); TOTAL PROTEIN 6.4 GM/DL (6.4-8.2); hs C REACTIVE PROTEIN 0.77 MG/DL (0.00-0.50)
[2017-05-20] MEDS ORDERED: NS IV 1000 ML 1,000 ML IV ONE (21:04)
[2017-05-20 21:08] LABS: KETONES,URINE NEGATIVE (NEGATIVE); LEUKOCYTE ESTERASE ,URINE 1+ (NEGATIVE); NITRITE,URINE NEGATIVE (NEGATIVE); PH,URINE 5 (5-9); PROTEIN,URINE 1+ (NEGATIVE); UROBILINOGEN,URINE 4 MG/DL (NORMAL)
[2017-05-20 21:16] LABS: BILIRUBIN,URINE 1+ (NEGATIVE); CALCIUM OXALATE CRYSTALS,UR LARGE /LPF
[2017-05-20] MEDS ORDERED: MAGNESIUM 1 GM/100 ML IVPB 100 ML IV ONE (21:45)
[2017-05-20] MEDS ORDERED: metroNIDAZOLE 500 MG (FLAGYL) TAB PO ONE (21:45)
[2017-05-20] MEDS ORDERED: HYOSCYAMINE 0.125 MG (LEVSIN) TAB SL ONE (21:45)
[2017-05-20] MEDS ORDERED: CIPROFLOXACIN 500 MG (CIPRO) TABLET PO ONE (21:45)
--- NOTE | 2017-05-20 23:02 | ED GI ---
General Chief Complaint: Abdominal/GI Problems Stated Complaint: Diarrhea Nursing Triage Note: rectal pain, stomach cramping, increased gas. recently dx with colitis. Sepsis Screen: No Definite Risk Source of Information: Patient, Old Records Exam Limitations: No Limitations History of Present Illness Time Seen By Provider: 19:45 Initial Comments This 61-year-old gentleman presents to the emergency room with complaints of diffuse migratory abdominal discomfort, cramping, and bloating with persistent diarrhea for the past couple of weeks. He was seen in the emergency room on May 02 and evaluated by Amelie Shrestha APRN. CT scan at that time suggested colitis and he was placed on Cipro and Flagyl. He finished the antibiotics and noted significant improvement. However, symptoms promptly returned after stopping the antibiotics. He denies any fever. He has had a small amount of bleeding with his stools. He had a colonoscopy performed in March. A polyp was removed. He states it was suggested to him at that time that rectal bleeding was caused by hemorrhoids. Patient is seen by Dr. Vora. His primary care provider Usha Wilson at the [facility] Patient also reports having significant problems with magnesium depletion when he has been sick in the past. Allergies and Home Medications Allergies Coded Allergies: atorvastatin (Verified Allergy, Mild, 03/26/17) Patient states that his bones ached and he wasn't able to tolerate it. Home Medications Albuterol Sulfate 2.5 Mg/3 Ml Vial.neb, 2.5 MG IH Q4H PRN for SHORTNESS OF BREATH, (Reported) Allopurinol 300 Mg Tablet, 300 MG PO BID, (Reported) Budesonide/Formoterol Fumarate 10.2 Gm Hfa.aer.ad, 2 PUFF IH DAILY, (Reported) Ciprofloxacin HCl 500 Mg Tablet, 500 MG PO BID, #14 Prescribed by: AMELIE SHRESTHA on 05/02/17 1543 Ciprofloxacin HCl 500 Mg Tablet, 500 MG PO BID, #28 Prescribed by: CONRADO BOOKER on 05/20/17 2306 Diclofenac Sodium 100 Gm Gel..gram., TP QID PRN for GOUT PAIN, (Reported) Dulaglutide 0.75 Mg/0.5 Ml Pen.injctr, 0.75 MG SQ We, (Reported) Fenofibrate Nanocrystallized 145 Mg Tablet, 145 MG PO HS, (Reported) Fluoxetine HCl 20 Mg Capsule, 40 MG PO DAILY, (Reported) TAKES 2 (20MG) CAPSULES Fluticasone Propionate 16 Gm [place].susp, 1 SPRAY NS BID PRN for CONGESTION, ( Reported) Gabapentin 300 Mg Capsule, 300 MG PO TID, (Reported) Glimepiride 4 Mg Tablet, 4 MG PO DAILY, (Reported) Hyoscyamine Sulfate 0.125 Mg Tab.subl, 1-2 TAB SL Q4H PRN for CRAMPS, #10 Prescribed by: CONRADO BOOKER on 05/20/176 Lisinopril/Hydrochlorothiazide 1 Each Tablet, 1 TAB PO HS, (Reported) Magnesium Oxide 400 Mg Tablet, 400 MG PO TID, #15 Prescribed by: CONRADO BOOKER on 05/20/172305 Metformin HCl 1,000 Mg Tablet, 1,000 MG PO BID, (Reported) Metoprolol Succinate 25 Mg Tab.er.24h, 25 MG PO HS, (Reported) Metronidazole 500 Mg Tablet, 500 MG PO TID, #21 Prescribed by: AMELIE SHRESTHA on 05/02/17 1543 Metronidazole 500 Mg Tablet, 500 MG PO BID, #42 Prescribed by: CONRADO BOOKER on 05/20/176 Montelukast Sodium 10 Mg Tablet, 10 MG PO HS, (Reported) [place] 3 Polyunsat Fatty Acids 1,000 Mg Cap, 1,000 MG PO BID, (Reported) Omeprazole 20 Mg Capsule.dr, 20 MG PO DAILY, (Reported) Potassium Gluconate 99 Mg Tablet, 99 MG PO DAILY, (Reported) Rosuvastatin Calcium 20 Mg Tablet, 20 MG PO HS, (Reported) Umeclidinium [place] 62.5 Mcg Blst.w.dev, 1 PUFF IH DAILY, (Reported) Review of Systems Constitutional: no symptoms reported EENTM: No Symptoms Reported Respiratory: No Symptoms Reported Cardiovascular: No Symptoms Reported Gastrointestinal: See HPI Genitourinary: No Symptoms Reported Musculoskeletal: no symptoms reported Skin: no symptoms reported Psychiatric/Neurological: No Symptoms Reported Endocrine: No Symptoms Reported Past Zaasoee-Hmvecn-Uoldtm Hx Patient Social History Alcohol Use: Denies Use Recreational Drug Use: No Smoking Status: Never a Smoker 2nd Hand Smoke Exposure: Yes Recent Foreign Travel: No Contact w/Someone Who Travel: No Recent Infectious Disease Expo: No Recent Hopitalizations: No Immunizations Up To Date Tetanus Booster (TDap): Unknown PED Vaccines UTD: No Date of Pneumonia Vaccine: Jul 28, 2012 Date of Influenza Vaccine: Jul 30, 2016 Seasonal Allergies Seasonal Allergies: Yes Surgeries HX Surgeries: Yes (UMB HERNIA,APPENDIX, EYES AT CHILDHOOD) Surgeries: Abdominal, Appendectomy, Cardiac, Coronary Stent, Eye Surgery, Gallbladder, Renal Respiratory Hx Respiratory Disorders: Yes ("pigeon's disease") Respiratory Disorders: Sleep Apnea Cardiovascular Hx Cardiac Disorders: Yes Cardiac Disorders: Atrial Fibrillation, Coronary Artery Disease, High Cholesterol, Hypertension Neurological Hx Neurological Disorders: No Reproductive System Hx Reproductive Disorders: No Sexually Transmitted Disease: No HIV/AIDS: No Genitourinary Hx Genitourinary Disorders: No Genitourinary Disorders: Kidney Stones Gastrointestinal Hx Gastrointestinal Disorders: Yes (BLOOD IN STOOLS) Gastrointestinal Disorders: Gastroesophageal Reflux, Polyps Musculoskeletal Hx Musculoskeletal Disorders: Yes Musculoskeletal Disorders: Degenerate Disk Disease, Arthritis, Chronic Back Pain, Gout Endocrine Hx Endocrine Disorders: Yes (Hypomagnesemia) Endocrine Disorders: Diabetes, Non-Insulin dep HEENT HX ENT Disorders: No Loss of Vision: Denies Cancer Hx Cancer: No Psychosocial Hx Psychiatric Problems: Yes Behavioral Health Disorders: Anxiety, Depression Integumentary HX Skin/Integumentary Disorder: No Blood Transfusions Hx Blood Disorders: No Adverse Reaction to a Blood Tr: No Family Medical History Significant Family History: Lung Disease Family Medial History: Arthritis 19 FATHER Respiratory disorder 19 FATHER 19 MOTHER Thyroid disease 19 MOTHER No Family History of: AIDS Abdominal aortic aneurysm Alcoholism Alzheimer's disease Asthma Cardiovascular disease Dementia Diabetes mellitus Drug abuse Hypertension Kidney disease Myocardial infarction Parkinson's disease Psychosocial problem Seizure disorder Physical Exam Vital Signs VS - Last 72 Hours, by Label 05/20/17 05/20/17 19:30 23:16 Temp 97.6 97.6 Pulse 113 93 Resp 18 18 B/P (MAP) 102/66 Pulse Ox 96 95 O2 Delivery Room Air Room Air Capillary Refill : Less Than 3 Seconds General Appearance: WD/WN, no apparent distress HEENT: PERRL/EOMI, normal ENT inspection, pharynx normal Neck: normal inspection Respiratory: lungs clear, normal breath sounds, no respiratory distress, no accessory muscle use Cardiovascular: regular rate, rhythm, no edema, no murmur Gastrointestinal: soft, abnormal bowel sounds (Hyperactive), tenderness (Mild diffuse tenderness) Extremities: normal inspection, no pedal edema 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, no motor/sensory deficits, alert, normal mood/affect, oriented x 3 Skin: normal color, warm/dry Progress/Results/Core Measures Results/Orders Lab Results Laboratory Tests Test 05/20/17 20:02 05/20/17 21:00 Range/Units White Blood Count 6.9 4.3-11.0 10^3/uL Red Blood Count 4.29 L 4.35-5.85 10^6/uL Hemoglobin 12.6 L 13.3-17.7 G/DL Hematocrit 39 L 40-54 % Mean Corpuscular Volume 90 80-99 FL Mean Corpuscular Hemoglobin 29 25-34 PG Mean Corpuscular Hemoglobin Concent 33 32-36 G/DL Red Cell Distribution Width 14.6 H 10.0-14.5 % Platelet Count 166 130-400 10^3/uL Mean Platelet Volume 9.7 7.4-10.4 FL Neutrophils (%) (Auto) 57 42-75 % Lymphocytes (%) (Auto) 26 12-44 % Monocytes (%) (Auto) 12 0-12 % Eosinophils (%) (Auto) 5 0-10 % Basophils (%) (Auto) 0 0-10 % Neutrophils # (Auto) 3.9 1.8-7.8 X 10^3 Lymphocytes # (Auto) 1.8 1.0-4.0 X 10^3 Monocytes # (Auto) 0.8 0.0-1.0 X 10^3 Eosinophils # (Auto) 0.3 0.0-0.3 10^3/uL Basophils # (Auto) 0.0 0.0-0.1 10^3/uL Sodium Level 139 135-145 MMOL/L Potassium Level 3.5 L 3.6-5.0 MMOL/L Chloride Level 105 98-107 MMOL/L Carbon Dioxide Level 19 L 21-32 MMOL/L Anion Gap 15 H 5-14 MMOL/L Blood Urea Nitrogen 20 H 7-18 MG/DL Creatinine 0.74 0.60-1.30 MG/DL Estimat Glomerular Filtration Rate > 60 BUN/Creatinine Ratio 27 Glucose Level 224 H 70-105 MG/DL Calcium Level 9.0 8.5-10.1 MG/DL Magnesium Level 1.1 L 1.8-2.4 MG/DL Total Bilirubin 0.3 0.1-1.0 MG/DL Aspartate Amino Transf (AST/SGOT) 22 5-34 U/L Alanine Aminotransferase (ALT/SGPT) 33 0-55 U/L Alkaline Phosphatase 47 40-136 U/L C-Reactive Protein High Sensitivity 0.77 H 0.00-0.50 MG/DL Total Protein 6.4 6.4-8.2 GM/DL Albumin 3.5 3.2-4.5 GM/DL Lipase 53 8-78 U/L Urine Color YELLOW Urine Clarity SLIGHTLY CLOUDY Urine pH 5 5-9 Urine Specific [place] 1.025 H 1.016-1.022 Urine Protein 1+ H NEGATIVE Urine Glucose (UA) NEGATIVE NEGATIVE Urine Ketones NEGATIVE NEGATIVE Urine Nitrite NEGATIVE NEGATIVE Urine Bilirubin 1+ H NEGATIVE Urine Urobilinogen 4 H NORMAL MG/DL Urine Leukocyte Esterase 1+ H NEGATIVE Urine RBC (Auto) NEGATIVE NEGATIVE Urine RBC NONE /HPF Urine WBC 2-5 /HPF Urine Crystals PRESENT H /LPF Urine Calcium Oxalate Crystals LARGE H /LPF Urine Bacteria NONE /HPF Urine Casts NONE /LPF Urine Mucus NEGATIVE /LPF Urine Culture Indicated NO Micro Results Microbiology 05/20/17 Stool Culture - Preliminary, Resulted No stool pathogens as yet isolated. ... 05/20/17 C. difficile GDH Antigen & Toxins - Final, Complete My Orders Orders - CONRADO WEBSTER MD Cbc With Automated Diff (05/20/17 19:45) Comprehensive Metabolic Panel (05/20/17 19:45) Hs C Reactive Protein (05/20/17 19:45) Lipase (05/20/17 19:45) Magnesium (05/20/17 19:45) Ua Culture If Indicated (05/20/17 19:45) Saline Lock/Iv-Start (05/20/17 19:45) Ns Iv 1000 Ml (Sodium Chloride 0.9%) (05/20/17 21:04) Ciprofloxacin Tablet (Cipro Tablet) (05/20/17 21:45) Hyoscyamine Sl Tablet (Levsin Sl Tablet) (05/20/17 21:45) Metronidazole Tablet (Flagyl Tablet) (05/20/17 21:45) Magnesium 1 Gm/100 Ml Ivpb (Magnesium Schulz (05/20/17 21:45) Stool Culture (05/20/17 21:52) Fecal Wbc (05/20/17 21:52) C Difficile Ag + Toxin A/B. (05/20/17 21:52) Parasite Scrn Stool Giard Cryp (05/20/17 21:52) Parasite Complete Exam Stool (05/20/17 21:52) Rx-Hyoscyamine Tab (Rx-Levsin Sl) (05/20/17 23:09) Rx-Hyoscyamine Tab (Rx-Levsin Sl) (05/20/17 23:07) Medications Given in ED Vital Signs/I&O Vital Sign - Last 12Hours 05/20/17 05/20/17 19:30 23:16 Temp 97.6 97.6 Pulse 113 93 Resp 18 18 B/P (MAP) 102/66 Pulse Ox 96 95 O2 Delivery Room Air Room Air Intake and Output 05/21/17 00:00 Intake Total 1100 ml Balance 1100 ml Blood Pressure Mean: 78 Progress Note #1: Progress Note Patient received a liter of IV fluids for volume resuscitation. Magnesium was found to be significantly low. 2 g of IV magnesium were infused in the emergency room. A prescription for magnesium replacement was provided. Stool specimen was sent to the lab for evaluation. Patient was presumed to have recurrent colitis as his symptoms previously improved with the short course of antibiotics. A dose of oral Cipro and Flagyl were given in the emergency room. A prescription was provided to follow. Patient was advised to follow-up on his stool studies with his primary care provider and Dr. Vora. Levsin was provided for treatment of the cramping. I discussed disposition with Dr. Riley , hospitalist director of campus recreation. After discussion, it was felt patient was safe to trial outpatient therapy. Progress Note #2: Progress Note May 21, 2017, 14:20 C. difficile studies returned positive. I did attempt to reach patient by phone unsuccessfully. 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 Culture follow-up procedures will be followed in the emergency room. Departure Impression Impression: Primary Impression: Diarrhea Qualified Codes: R19.7 - Diarrhea, unspecified Additional Impressions: Generalized abdominal pain Hypomagnesemia Disposition: HOME, SELF-CARE Condition: Improved Departure-Patient Inst. Decision time for Depature: 22:59 Referrals: ANTONIO GONZALEZ DO (PCP) Primary Care Physician USHA WILSNO (Family) Primary Care Physician Patient Instructions: Acute Abdomen (Belly Pain), Adult (DC) Add. Discharge Instructions: Complete your antibiotics as prescribed. Follow-up with your primary care provider and Dr. Vora as soon as possible. Preliminary stool culture results should be available by Friday. Please review these with one of your doctors. Use the Mag-ox magnesium supplementation as prescribed. Gradually advance your diet with small quantities of bland food as tolerated and drink plenty of clear liquids. Return to the emergency room if symptoms worsen. Dissolve the Levsin (hyoscyamine) 1-2 tablets under the tongue every 4 hours as needed for cramping and diarrhea. All discharge instructions reviewed with patient and/or family. Voiced understanding. Scripts Hyoscyamine Sulfate (Levsin-Sl) 0.125 Mg Tab.subl 1-2 TAB SL Q4H Y for CRAMPS, #10 TAB Prov: CONRADO WEBSTER MD 05/20/17 Ciprofloxacin HCl (Cipro) 500 Mg Tablet 500 MG PO BID, #28 TAB Prov: CONRADO WEBSTER MD 05/20/17 Metronidazole (Flagyl) 500 Mg Tablet 500 MG PO BID, #42 TAB Prov: CONRADO WEBSTER MD 05/20/17 Magnesium Oxide (Magox 400) 400 Mg Tablet 400 MG PO TID, #15 TAB Prov: CONRADO WEBSTER MD 05/20/17 Copy Copies To 1: ANTONIO GONZALEZ DO Copies To 2: SHEREEN VORA MD, JOSHUA T MD May 20, 2017 23:02
[2017-05-20] MEDS ORDERED: CIPR-225 PO (23:06)
[2017-05-20] MEDS ORDERED: METR500T PO (23:06)
[2017-05-20] MEDS ORDERED: MAGN400T29 PO (23:06)
[2017-05-20] MEDS ORDERED: HYOS0.1283 SL (23:06)
[2017-05-20] MEDS ORDERED: RX-HYOSCYAMINE 0.125 MG SL (LEVSIN) PPK#6 ONE (23:07)
[2017-05-20] MEDS ORDERED: RX-HYOSCYAMINE 0.125 MG SL (LEVSIN) PPK#6 SL STA (23:09)
[2017-05-20 23:16] VITALS: BP 125/74
== END 2017-05-20 23:15 | disposition home or self-care (01) ==
LOC: EDUNIT# 18:50 → ER 18:52
DX: R10.84 Generalized abdominal pain (principal); R19.7 Diarrhea, unspecified; E83.42 Hypomagnesemia; G47.30 Sleep apnea, unspecified; I48.91 Unspecified atrial fibrillation; I25.10 Atherosclerotic heart disease of native coronary artery without angina pectoris; I10 Essential (primary) hypertension; M19.90 Unspecified osteoarthritis, unspecified site; F41.9 Anxiety disorder, unspecified; F32.9 Major depressive disorder, single episode, unspecified; E11.9 Type 2 diabetes mellitus without complications; M10.9 Gout, unspecified; M54.9 Dorsalgia, unspecified; G89.29 Other chronic pain; M47.9 Spondylosis, unspecified; E78.00 Pure hypercholesterolemia, unspecified; Z87.442 Personal history of urinary calculi; Z87.19 Personal history of other diseases of the digestive system; Z79.84 Long term (current) use of oral hypoglycemic drugs; Z90.49 Acquired absence of other specified parts of digestive tract; Z95.5 Presence of coronary angioplasty implant and graft
CPT/HCPCS: 36415; 80053; 81000; 83690; 83735; 85025; 86141; 87045; 87046; 87177; 87324; 87328; 87329; 87449; 96361; 96365

== ENCOUNTER → 2017-07-01 | Outpatient (CLI) | payer MEDICARE ==
[~2017-07-01] VITALS: Ht 167.6 cm; Wt 77.6 kg
[~2017-07-01] MED LIST changes: +CATHETER FLUSH 10 ML SYR IV PRN; +HYOS0.1283 SL; +MAGN400T29 PO; +REGADENOSON 0.4 MG/5 ML SYR (LEXISCAN) IV ONE
[2017-07-01 10:04] VITALS: BP 133/79
[2017-07-01 10:07] VITALS: BP 131/94
== END ==
LOC: RAD 07:47
PROVIDERS: ATTEND Internal Medicine Cardiovascular Disease
DX: I25.10 Atherosclerotic heart disease of native coronary artery without angina pectoris (principal); R06.02 Shortness of breath; G47.33 Obstructive sleep apnea (adult) (pediatric); J43.8 Other emphysema; I10 Essential (primary) hypertension; E78.2 Mixed hyperlipidemia
CPT/HCPCS: 78452; 93017

== ENCOUNTER 2017-12-05 18:03 | Emergency (ER) | payer MEDICARE ==
[~2017-12-05] VITALS: Ht 167.6 cm; Wt 77.1 kg
[~2017-12-05 18:03] MED LIST changes: +ACHD5005 PO; -CATHETER FLUSH 10 ML SYR IV PRN; -HYDR-3812 PO; -METO-270 PO; +METO-387 PO; -REGADENOSON 0.4 MG/5 ML SYR (LEXISCAN) IV ONE; -ROSU20TA28 PO; +ROSU20TA30 PO
--- NOTE | 2017-12-05 20:42 | ED Upper Extremity ---
General Chief Complaint: Upper Extremity Stated Complaint: R SHOULDER/ARM PAIN/FINGER NUMBNESS Nursing Triage Note: pt c/o right shoulder pain radiating down right arm. tingling in fingers. he had a shoulder injury years ago that flares up from time to time. reports it has been severe for the past 2-3 days. Nursing Sepsis Screen: No Definite Risk Source: patient Exam Limitations: no limitations (CONG WOO) Source: patient Exam Limitations: no limitations (PATTI CAPPS DO) History of Present Illness Date Seen by Provider: Dec 05, 2017 Time Seen by Provider: 20:42 (CONG WOO) Date Seen by Provider: Dec 05, 2017 Time Seen by Provider: 20:37 Initial Comments PT C/O RIGHT SHOULDER PAIN FOR YEARS, WORSE THE LAST 3 DAYS NO KNOWN RECENT INJURY STATES IN 2002, HE FELL OFF A BACKHOE AND TWISTED HIS RIGHT ARM, BUT NEVER SOUGHT CARE FOR THAT HAS NEVER SOUGHT CARE FOR THIS PROBLEM, UNTIL TODAY HAS OCCASIONAL SLIGHT NUMBNESS/TINGLING TO RIGHT FINGERTIPS, BUT NOT NOW NO NECK, BACK OR CHEST PAIN NO RELIEF WITH ADVIL PT IS RIGHT HANDED. PCP; [facility] ORACLE ENGINEER: DR. MCCORMICK CHARGEBACK SPECIALIST: DR. SAMUEL (PATTI CAPPS DO) Allergies and Home Medications Allergies Coded Allergies: atorvastatin (Verified Allergy, Mild, 03/26/17) Patient states that his bones ached and he wasn't able to tolerate it. Home Medications Albuterol Sulfate 2.5 Mg/3 Ml Vial.neb, 2.5 MG IH Q4H PRN for SHORTNESS OF BREATH, (Reported) Allopurinol 300 Mg Tablet, 300 MG PO BID, (Reported) Budesonide/Formoterol Fumarate 10.2 Gm Hfa.aer.ad, 2 PUFF IH DAILY, (Reported) Ciprofloxacin HCl 500 Mg Tablet, 500 MG PO BID, #14 Prescribed by: AMELIE WEEKS on 05/02/17 1543 Ciprofloxacin HCl 500 Mg Tablet, 500 MG PO BID, #28 Prescribed by: CONRADO BOOKER on 05/20/17 2306 Diclofenac Sodium 100 Gm Gel..gram., TP QID PRN for GOUT PAIN, (Reported) Dulaglutide 0.75 Mg/0.5 Ml Pen.injctr, 0.75 MG SQ We, (Reported) Fenofibrate Nanocrystallized 145 Mg Tablet, 145 MG PO HS, (Reported) Fluoxetine HCl 20 Mg Capsule, 40 MG PO DAILY, (Reported) TAKES 2 (20MG) CAPSULES Fluticasone Propionate 16 Gm Moosic.susp, 1 SPRAY NS BID PRN for CONGESTION, ( Reported) Gabapentin 300 Mg Capsule, 300 MG PO TID, (Reported) Glimepiride 4 Mg Tablet, 4 MG PO DAILY, (Reported) Hyoscyamine Sulfate 0.125 Mg Tab.subl, 1-2 TAB SL Q4H PRN for CRAMPS, #10 Prescribed by: CONRADO BOOKER on 05/20/172305 Lisinopril/Hydrochlorothiazide 1 Each Tablet, 1 TAB PO HS, (Reported) Magnesium Oxide 400 Mg Tablet, 400 MG PO TID, #15 Prescribed by: CONRADO BOOKER on 05/20/172305 Meloxicam 15 Mg Tablet, 15 MG PO DAILY, #10 Prescribed by: PATTI CAPPS on 12/05/172116 Metformin HCl 1,000 Mg Tablet, 1,000 MG PO BID, (Reported) Methocarbamol 500 Mg Tablet, 500 MG PO QID, #20 Prescribed by: PATTI CAPPS on 12/05/172116 Metoprolol Succinate 25 Mg Tab.er.24h, 25 MG PO HS, (Reported) Metronidazole 500 Mg Tablet, 500 MG PO TID, #21 Prescribed by: AMELIE WEEKS on 05/02/17 1543 Metronidazole 500 Mg Tablet, 500 MG PO BID, #42 Prescribed by: CONRADO BOOKER on 05/20/172305 Montelukast Sodium 10 Mg Tablet, 10 MG PO HS, (Reported) Wagner 3 Polyunsat Fatty Acids 1,000 Mg Cap, 1,000 MG PO BID, (Reported) Omeprazole 20 Mg Capsule.dr, 20 MG PO DAILY, (Reported) Potassium Gluconate 99 Mg Tablet, 99 MG PO DAILY, (Reported) Rosuvastatin Calcium 20 Mg Tablet, 20 MG PO HS, (Reported) Tramadol HCl 50 Mg Tablet, 50 MG PO Q4H, #20 Prescribed by: PATTI CAPPS on 12/05/172116 Umeclidinium [place] 62.5 Mcg Blst.w.dev, 1 PUFF IH DAILY, (Reported) Constitutional: no symptoms reported Respiratory: no symptoms reported Cardiovascular: no symptoms reported Gastrointestinal: no symptoms reported Genitourinary: no symptoms reported Musculoskeletal: see HPI Skin: no symptoms reported Psychiatric/Neurological: See HPI (PATTI CAPPS DO) Past Nmfwcvx-Xlmrxu-Zpwppo Hx Patient Social History Alcohol Use: Denies Use Recreational Drug Use: No Smoking Status: Never a Smoker 2nd Hand Smoke Exposure: Yes Recent Foreign Travel: No Contact w/Someone Who Travel: No Recent Infectious Disease Expo: No Recent Hopitalizations: No (CONG WOO) Alcohol Use: Past History (HISTORY OF ABUSE/HEAVY USE) Recreational Drug Use: No Smoking Status: Never a Smoker (PTATI CAPPS DO) Immunizations Up To Date Tetanus Booster (TDap): Unknown PED Vaccines UTD: No Date of Pneumonia Vaccine: Jul 28, 2012 Date of Influenza Vaccine: Jul 30, 2016 (CONG WOO) Seasonal Allergies Seasonal Allergies: Yes (CONG WOO) Surgeries History of Surgeries: Yes (UMB HERNIA,APPENDIX, EYES AT CHILDHOOD) Surgeries: Abdominal, Appendectomy, Cardiac, Coronary Stent, Eye Surgery, Gallbladder, Renal (CONG WOO) History of Surgeries: Yes (UMBILICAL HERNIA REPAIR; KIDNEY STONE REMOVAL; CARDIAC CATHS-STENTS X 2; EYE SURGERY CHILD; LUNG BIOPSY) Surgeries: Abdominal, Appendectomy, Cardiac, Coronary Stent, Eye Surgery, Gallbladder, Renal (PATTI CAPPS DO) Respiratory History of Respiratory Disorde: Yes ("pigeon's disease") Respiratory Disorders: Sleep Apnea Currently Using CPAP: Yes (CONG WOO) History of Respiratory Disorde: Yes ("pigeon's disease"" URIBE'S LUNG" WITH FREQUENT PNEUMONIA; CPAP AT ) Respiratory Disorders: Pneumonia, Chronic Bronchitis, Sleep Apnea (PATTI CAPPS DO) Cardiovascular History of Cardiac Disorders: Yes Cardiac Disorders: Atrial Fibrillation, Coronary Artery Disease, High Cholesterol, Hypertension (CONG WOO) History of Cardiac Disorders: Yes Cardiac Disorders: Atrial Fibrillation, Coronary Artery Disease, High Cholesterol, Hypertension, Peripheral Vascular (PATTI CAPPS DO) Neurological History of Neurological Disord: No (CONG WOO) History of Neurological Disord: No (GÉNESIS,PATTI K DO) Reproductive System Hx Reproductive Disorders: No Sexually Transmitted Disease: No HIV/AIDS: No (CONG WOO) Genitourinary History of Genitourinary Disor: No Genitourinary Disorders: Kidney Stones (CONG WOO) History of Genitourinary Disor: Yes Genitourinary Disorders: Kidney Stones (GÉNESIS,PATTI K DO) Gastrointestinal History of Gastrointestinal Di: Yes Gastrointestinal Disorders: Gastroesophageal Reflux, Polyps (CONG WOO) History of Gastrointestinal Di: Yes (UMBILICAL HERNIA REPAIR) Gastrointestinal Disorders: Gastroesophageal Reflux (GÉNESIS,PATTI K DO) Musculoskeletal History of Musculoskeletal Dis: Yes (ch. right shoulder pain) Musculoskeletal Disorders: Degenerate Disk Disease, Arthritis, Chronic Back Pain, Gout (CONG WOO) History of Musculoskeletal Dis: Yes (ch. right shoulder pain) Musculoskeletal Disorders: Degenerate Disk Disease, Arthritis, Chronic Back Pain, Gout (GÉNESIS,PATTI K DO) Endocrine History of Endocrine Disorders: Yes Endocrine Disorders: Diabetes, Non-Insulin dep (CONG WOO) History of Endocrine Disorders: Yes Endocrine Disorders: Diabetes, Non-Insulin dep (GÉNESIS,PATTI K DO) HEENT Loss of Vision: Denies (CONG WOO) History of HEENT Disorders: Yes (EYE SURGERY CHILD) (GÉNESIS,PATTI K DO) Cancer History of Cancer: No (CONG WOO) History of Cancer: No (GÉNESIS,PATTI K DO) Psychosocial History of Psychiatric Problem: Yes Behavioral Health Disorders: Anxiety, Depression (CONG WOO) History of Psychiatric Problem: Yes Behavioral Health Disorders: Anxiety, Depression (GÉNESIS,PATTI K DO) Integumentary History of Skin or Integumenta: No (CONG WOO) History of Skin or Integumenta: No (GÉNESIS,PATTI K DO) Blood Transfusions History of Blood Disorders: No Adverse Reaction to a Blood Tr: No (CONG WOO) History of Blood Disorders: No Adverse Reaction to a Blood Tr: No (GÉNESIS,PATTI K DO) Family Medical History Significant Family History: Lung Disease Family Medial History: Arthritis 19 FATHER Respiratory disorder 19 FATHER 19 MOTHER Thyroid disease 19 MOTHER No Family History of: AIDS Abdominal aortic aneurysm Alcoholism Alzheimer's disease Asthma Cardiovascular disease Dementia Diabetes mellitus Drug abuse Hypertension Kidney disease Myocardial infarction Parkinson's disease Psychosocial problem Seizure disorder (CONG WOO) Family Medial History: Arthritis 19 FATHER Respiratory disorder 19 FATHER 19 MOTHER Thyroid disease 19 MOTHER No Family History of: AIDS Abdominal aortic aneurysm Alcoholism Alzheimer's disease Asthma Cardiovascular disease Dementia Diabetes mellitus Drug abuse Hypertension Kidney disease Myocardial infarction Parkinson's disease Psychosocial problem Seizure disorder (PATTI CAPPS DO) Physical Exam Vital Signs Vital Signs - First Documented 12/05/17 12/05/17 18:47 21:27 Temp 97.9 Pulse 70 Resp 20 B/P (MAP) 125/73 (90) Pulse Ox 99 O2 Delivery Room Air (PATTI CAPPS DO) Vital Signs Capillary Refill : Less Than 3 Seconds (CONG WOO) General Appearance: WD/WN, no apparent distress Neck: non-tender, full range of motion, supple, normal inspection Cardiovascular: normal peripheral pulses, regular rate, rhythm, no murmur Respiratory: chest non-tender, normal breath sounds Gastrointestinal: non tender, soft Back: no CVA tenderness, no vertebral tenderness, other (TENDERNESS OVER RIGHT TRAPEZIUS MUSCLE) Shoulder: no evidence of injury, bone tenderness, limited ROM (CANNOT RAISE/ ABDUCT BEYOND 90 DEGREES. 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 II-XII nml as tested, no motor/sensory deficits, alert, normal mood/affect, oriented x 3 Skin: normal color, warm/dry, No rash (PATTI CAPPS DO) Splinting and Joint Reduction : Arm Sling: [place] (PATTI CAPPS DO) Progress/Results/Core Measures Results/Orders My Orders Orders - PATTI CAPPS DO Shoulder, Right, 3 Views (12/05/17 20:44) Rx-Naproxen (Rx-Naprosyn) (12/05/17 21:17) Rx-Cyclobenzaprine Tablet (Rx-Flexeril T (12/05/17 21:17) Rx-Tramadol Hcl (Rx-Ultram) (12/05/17 21:17) Sling (12/05/17 21:18) (PATTI CAPPS DO) Vital Signs/I&O (PATTI CAPPS DO) Blood Pressure Mean: 90 Diagnostic Imaging Comments XRAYS RIGHT SHOULDER--MODERATELY ADVANCED DEGENERATIVE CHANGES, OTHERWISE NO ACUTE PROCESS, PER RADIOLOGIST REPORT @ 211 (PATTI CAPPS DO) Departure Impression Impression: Primary Impression: Chronic right shoulder pain Disposition: HOME, SELF-CARE Condition: Stable Departure-Patient Inst. Referrals: [facility] (PCP) Primary Care Physician MARIBEL GARY (Family) Primary Care Physician Patient Instructions: How to Use a Shoulder Sling, Shoulder Pain (DC) Add. Discharge Instructions: WEAR SLING AT ALL TIMES ALTERNATE ICE AND HEAT TO SORE AREA AT 20 MINUTE INTERVALS FOLLOW UP WITH DR. ORO/ORTHO 4 STATES NEXT WEEK FOR FURTHER CARE--CALL ON FRIDAY TO MAKE APPOINTMENT All discharge instructions reviewed with patient and/or family. Voiced understanding. Scripts Tramadol HCl (Ultram) 50 Mg Tablet 50 MG PO Q4H, #20 TAB Prov: PATTI CAPPS DO 12/05/17 Methocarbamol (Robaxin) 500 Mg Tablet 500 MG PO QID for Muscle Spasms, #20 TAB Prov: PATTI CAPPS DO 12/05/17 Meloxicam (Mobic) 15 Mg Tablet 15 MG PO DAILY, #10 TAB Prov: PATTI CAPPS DO 12/05/17 CONG WOO Dec 05, 2017 20:42 PATTI CAPPS DO Dec 05, 2017 21:12
--- NOTE | 2017-12-05 21:07 | Diagnostic Imaging Report ---
INDICATION: Chronic right shoulder pain which has increased in severity recently 3 views of the right shoulder show no fracture, dislocation or other acute bony abnormality. Moderately large hypertrophic spur along the inferior aspect of the AC joint. There are degenerative changes at the glenohumeral joint with joint space narrowing and hypertrophic spurring. There is some calcification superior to the humeral head consistent with calcific tendinosis. IMPRESSION: There are moderately advanced degenerative changes present with no acute abnormality seen. Dictated by: Dictated on workstation # [id number]
[2017-12-05] MEDS ORDERED: RX-CYCLOBENZAPRINE 10 MG (FLEXERIL) TAB PPK#3 PO STA (21:17)
[2017-12-05] MEDS ORDERED: METH500T PO (21:17)
[2017-12-05] MEDS ORDERED: MELO15TA14 PO (21:17)
[2017-12-05] MEDS ORDERED: TRAM-42 PO (21:17)
[2017-12-05] MEDS ORDERED: RX-NAPROXEN (NAPROSYN) 250 MG TAB PPK#4 PO STA (21:17)
[2017-12-05] MEDS ORDERED: RX-TRAMADOL 50 MG (ULTRAM) TAB PPK#4 PO STA (21:17)
[2017-12-05 21:27] VITALS: BP 125/73
--- OUTSIDE RECORDS SUMMARY | 2017-12-07 10:22 | XMS REPORT ---
Author Author FRANCES PACHECO [facility] Address [address] [place] [address] Care Team Providers Care Drafter Electromechanical Name Role Phone FRANCES PACHECO Unavailable PROBLEMS Type Condition ICD9-CM Code [id number] Code Onset Dates Condition Status SNOMED Code Problem Hx of assisted use 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 Active 280974564 Problem Uncontrolled type 2 diabetes mellitus without complication, without long-term current use of insulin E11.65 Active 879941463 Problem Controlled type 2 diabetes mellitus without complication, without long -term current use of insulin E11.9 Active 938924266 Problem Clostridium difficile diarrhea A04.7 Active 7760066471364 Problem Hypomagnesemia E83.42 Active 149276568 Problem Leg cramps, sleep related G47.62 Active 00017615 Problem Hyperlipidemia LDL goal <70 E78.5 Active 06462021 Problem Recurrent pneumonia J18.9 Active 507697885 Problem COPD exacerbation J44.1 Active 580189152 Problem Encounter for Zostavax administration Z23 Active 068369233 Problem High triglycerides E78.1 Active 461710859 Problem Arthritis, lumbar spine M47.9 Active 296823215 Problem Essential hypertension with goal blood pressure less than 130\/80 I10 Active 50704613 Problem Diabetes type 2, controlled E11.9 Active 28402038 Problem Pure hypercholesterolemia E78.0 Active 652072700 ALLERGIES No Information SOCIAL HISTORY Never Assessed PLAN OF CARE VITAL SIGNS MEDICATIONS Unknown Medications RESULTS Name Result Date Reference Range MAGNESIUM, SERUM 2017-03-17 Magnesium, Serum 1.7 1.6-2.3 PROCEDURES Procedure Date Ordered Result Body Site ROUTINE VENIPUNCTURE 2017-03-17 N/A LAB NOT BILLED BY [facility] March 17, 2017 IMMUNIZATIONS No Known Immunizations MEDICAL (GENERAL) HISTORY Type Description Date Medical History chronic interstitial lung disease with a normal PFT Medical History type 2 DM Medical History hyperlipidemia Medical History hypertension stress test 05/2017 negative Medical History coronary artery disease with stents Medical History gout Medical History optometry exam Medical History sleep apnea-cpap Medical History acid reflux Medical History a fib with RVR Medical History pneumonia several time Medical History chronic lower back pain Medical History diffuse fatty liver disease 02/2017 Medical History diverticilosis, polyps-due for repeated colonoscopy Medical History Clostridium Diff Surgical History heart cath with stent 05/2012 Surgical History heart cath with stent 11/13/12 Surgical History ventral hernia repair Surgical History choleycysectomy Surgical History lung biospy 2003 Surgical History kidney stones removed 1989 Surgical History colonoscopy 03/27/2017 Hospitalization History pneumonia 04/2013 Hospitalization History pneumonia, sepsis, a f ib with RVR 12/2015 Hospitalization History bilateral pneumonia and sepsis 01/2016 Hospitalization History Pneumonia, leukocytosis-[facility] 03/09/17 Hospitalization History ER X2 for Diarrhea 04/2017
--- OUTSIDE RECORDS SUMMARY | 2017-12-07 10:24 | XMS REPORT ---
Author Author MARIBEL GARY [facility] Address [address] [place] [address] Care Team Providers Care Parallel Computing Software Engineer Name Role Phone MARIBEL GARY Unavailable PROBLEMS Type Condition ICD9-CM Code [id number] Code Onset Dates Condition Status SNOMED Code Problem Hx of risk control analyst use 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 Active 154303337 Problem Uncontrolled type 2 diabetes mellitus without complication, without long-term current use of insulin E11.65 Active 193907708 Problem Controlled type 2 diabetes mellitus without complication, without long -term current use of insulin E11.9 Active 010247378 Problem Clostridium difficile diarrhea A04.7 Active 3027566920927 Problem Hypomagnesemia E83.42 Active 877967614 Problem Leg cramps, sleep related G47.62 Active 98384951 Problem Hyperlipidemia LDL goal <70 E78.5 Active 63138142 Problem Recurrent pneumonia J18.9 Active 382261252 Problem COPD exacerbation J44.1 Active 124736795 Problem Encounter for Zostavax administration Z23 Active 902932950 Problem High triglycerides E78.1 Active 929813910 Problem Arthritis, lumbar spine M47.9 Active 987977811 Problem Essential hypertension with goal blood pressure less than 130\/80 I10 Active 17592305 Problem Diabetes type 2, controlled E11.9 Active 89359768 Problem Pure hypercholesterolemia E78.0 Active 627581581 ALLERGIES No Information SOCIAL HISTORY Never Assessed PLAN OF CARE VITAL SIGNS MEDICATIONS Unknown Medications RESULTS No Results PROCEDURES No Known procedures IMMUNIZATIONS No Known Immunizations MEDICAL (GENERAL) HISTORY [...]
--- OUTSIDE RECORDS SUMMARY | 2017-12-07 10:24 | XMS REPORT ---
Author Author BAHVANI ZULETA Organization [facility] Address Unknown Phone Unavailable Care Team Providers Care Sifter And Miller Name Role Phone BHAVANI ZULETA Unavailable Unavailable PROBLEMS Type Condition ICD9-CM Code [id number] Code Onset Dates Condition Status SNOMED Code Problem Hx of [facility] use 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 Active 267120978 Problem Uncontrolled type 2 diabetes mellitus without complication, without long-term current use of insulin E11.65 Active 677327966 Problem Controlled type 2 diabetes mellitus without complication, without long -term current use of insulin E11.9 Active 866647085 Problem Clostridium difficile diarrhea A04.7 Active 0584838048808 Problem Hypomagnesemia E83.42 Active 904121324 Problem Leg cramps, sleep related G47.62 Active 15318331 Problem Hyperlipidemia LDL goal <70 E78.5 Active 30063948 Problem Recurrent pneumonia J18.9 Active 760541544 Problem COPD exacerbation J44.1 Active 763198036 Problem Encounter for Zostavax administration Z23 Active 110396847 Problem High triglycerides E78.1 Active 673278900 Problem Arthritis, lumbar spine M47.9 Active 613748477 Problem Essential hypertension with goal blood pressure less than 130\/80 I10 Active 44423537 Problem Diabetes type 2, controlled E11.9 Active 26472311 Problem Pure hypercholesterolemia E78.0 Active 019791547 ALLERGIES No Information SOCIAL HISTORY Never Assessed [...]
--- OUTSIDE RECORDS SUMMARY | 2017-12-07 10:25 | XMS REPORT ---
Author Author MARIBEL GARY [facility] Address [address] [place] [address] Care Team Providers Care Physician Pediatrician Name Role Phone MARIBEL GARY Unavailable PROBLEMS Type Condition ICD9-CM Code [id number] Code Onset Dates Condition Status SNOMED Code Problem 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 Active 094465354 Problem Uncontrolled type 2 diabetes mellitus without complication, without long-term current use of insulin E11.65 Active 273053636 Problem Controlled type 2 diabetes mellitus without complication, without long -term current use of insulin E11.9 Active 031283464 Problem Clostridium difficile diarrhea A04.7 Active 1724840061149 Problem Hypomagnesemia E83.42 Active 396200923 Problem Leg cramps, sleep related G47.62 Active 12702759 Problem Hyperlipidemia LDL goal <70 E78.5 Active 18940562 Problem Recurrent pneumonia J18.9 Active 921955859 Problem COPD exacerbation J44.1 Active 861872423 Problem Encounter for Zostavax administration Z23 Active 406608305 Problem High triglycerides E78.1 Active 054972569 Problem Arthritis, lumbar spine M47.9 Active 956904858 Problem Essential hypertension with goal blood pressure less than 130\/80 I10 Active 05114730 Problem Diabetes type 2, controlled E11.9 Active 15016785 Problem Pure hypercholesterolemia E78.0 Active 228832542 ALLERGIES Substance Reaction Event Type Date Status Lipitor muscle aches Drug Allergy February, Active SOCIAL HISTORY Never Assessed PLAN OF CARE Activity Details Follow Up 2 Months Reason:DM VITAL SIGNS Height 66 in 2017-03-20 Weight 180.4 lbs 2017-03-20 Temperature 97.0 degrees Fahrenheit 2017-03-20 Heart Rate 90 bpm 2017-03-20 Respiratory Rate 20 2017-03-20 Oximetry 94 % 2017-03-20 BMI 29.11 kg/m2 2017-03-20 Blood pressure systolic 140 mmHg 2017-03-20 Blood pressure diastolic 80 mmHg 2017-03-20 MEDICATIONS Medication Instructions Dosage Frequency Start Date End Date Duration Status Fish Oil 1000 MG Orally Twice a day 1 capsule 12h Active Metformin HCl 1000 MG Orally Twice a day 1 tablet 12h Active Crestor 20 mg Orally Once a day 1 tablet 24h Oct, 0 days Active Glimepiride 4 MG Orally Once a day 1 tablet with breakfast or the first main meal of the day 24h Active Montelukast Sodium 10 MG Orally Once a day 1 tablet in the evening 24h Active Incruse Ellipta 62.5 MCG/INH Inhalation Once a day 1 puff 24h Aug, Active Lisinopril-Hydrochlorothiazide 10-12.5 MG Orally Once a day 1 tablet 24h Active Aspirin 81 mg chew 1 tablet (81 mg) by oral route once daily Oct, Active Gabapentin 300 MG Orally 3 times a day 1 capsule 8h Active Allopurinol 300 MG Orally 2 times a day 1 tablet 12h Active Trulicity 0.75 MG/0.5ML Subcutaneous once weekly 0.5 ml Jul, Active Ventolin HFA 90 mcg/actuation inhale 2 puff by Inhalation route as needed every 6 hours PRN for cough or wheeze Mar, Active Eliquis 5 MG 1 tab(s) po bid Active Symbicort 160-4.5 MCG/ACT Inhalation Once a day 2 puffs 24h Active Fluoxetine HCl 20 mg Orally Once a day 2 capsules 24h Active Omeprazole 20 mg Orally Once a day 1 capsule 24h Active Potassium 99 MG Orally Once a day 1 tablet 24h Active Nebulizer/Adult Mask 1 by inhalation route as directed as directed Jan Active Fluticasone Propionate 50 MCG/ACT Nasally 2 times a day as needed 1 spray in each nostril Active Metoprolol Succinate ER 25 MG Orally Once a day 1 tablet 24h Active Voltaren 1 % Active Meloxicam 7.5 MG Orally Once a day 1 tablet-take with food for pain 24h Jan, Active Hydrocodone-Acetaminophen 5-325 MG Orally 2 times a day for severe back pain obly 1 tablet as needed Jan, Active Albuterol Sulfate (2.5 MG/3ML) 0.083% Inhalation up to 6 times per day as needed for shortness of breath/wheezing 3 ml Jan, Active Tricor 145 MG Orally Once a day 1 tablet 24h Active RESULTS No Results PROCEDURES Procedure Date Ordered Result Body Site MEASURE BLOOD OXYGEN LEVEL March 20, 2017 [facility] VISIT ESTABLISHED PATIENT March 20, 2017 IMMUNIZATIONS No Known Immunizations MEDICAL (GENERAL) [...]
--- OUTSIDE RECORDS SUMMARY | 2017-12-07 10:26 | XMS REPORT ---
Author Author MARIBEL GARY [facility] Address [address] [place] [address] Care Team Providers Care Entry Table Operator Name Role Phone MARIBEL GARY Unavailable PROBLEMS Type Condition ICD9-CM Code [id number] Code Onset Dates Condition Status SNOMED Code Problem Hx of mcfp use 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 Active 257001385 Problem Uncontrolled type 2 diabetes mellitus without complication, without long-term current use of insulin E11.65 Active 219977813 Problem Controlled type 2 diabetes mellitus without complication, without long -term current use of insulin E11.9 Active 330913537 Problem Clostridium difficile diarrhea A04.7 Active 2654343941075 Problem Hypomagnesemia E83.42 Active 559855714 Problem Leg cramps, sleep related G47.62 Active 72856430 Problem Hyperlipidemia LDL goal <70 E78.5 Active 81573443 Problem Recurrent pneumonia J18.9 Active 161949825 Problem COPD exacerbation J44.1 Active 773720081 Problem Encounter for Zostavax administration Z23 Active 028824348 Problem High triglycerides E78.1 Active 362813246 Problem Arthritis, lumbar spine M47.9 Active 305265054 Problem Essential hypertension with goal blood pressure less than 130\/80 I10 Active 60958973 Problem Diabetes type 2, controlled E11.9 Active 47706039 Problem Pure hypercholesterolemia E78.0 Active 963783398 ALLERGIES Unknown Allergies SOCIAL HISTORY No smoking Hx information available PLAN OF CARE VITAL SIGNS MEDICATIONS Medication Instructions Dosage Frequency Start Date End Date Duration Status Metformin HCl 1000 MG TAKE 1 TABLET TWICE DAILY 90 Active Symbicort 160-4.5 MCG/ACT Inhalation Twice a day 2 puffs 12h Active Potassium 99 MG Orally Once a day 1 tablet 24h Active Fluticasone Propionate 50 MCG/ACT USE 1 SPRAY IN EACH NOSTRIL TWICE DAILY 30 Active Apixaban 5 MG Orally 2 times a day 1 tablet 12h Active Tricor 145 MG TAKE 1 TABLET BY MOUTH ONCE DAILY 90 Active Fish Oil 1000 MG Orally Once a day 1 capsule 24h Active Fluoxetine HCl 20 MG TAKE 2 CAPSULES ONE TIME DAILY 90 Active Crestor 20 mg Orally Once a day 1 tablet 24h Oct, 0 days Active Metoprolol Succinate ER 25 MG TAKE 1 TABLET TWICE DAILY 90 Active Voltaren 1 % Active Glimepiride 4 MG TAKE 1 TABLET WITH BREAKFAST OR THE FIRST MAIN MEAL OF THE DAY ONCE A DAY 30 Active Trulicity 0.75 MG/0.5ML Subcutaneous once weekly 0.5 ml Jul, Active Omeprazole 20 MG TAKE 1 CAPSULE ONE TIME DAILY 90 Active Singulair 10 MG Orally Once a day 1 tablet in the evening 24h Active Ventolin HFA 90 mcg/actuation inhale 2 puff by Inhalation route as needed every 6 hours PRN for cough or wheeze Mar, Active Lisinopril-Hydrochlorothiazide 10-12.5 MG TAKE 1 TABLET ONE TIME DAILY 90 Active Allopurinol 300 MG Orally 2 times a day 1 tablet 12h Active Incruse Ellipta 62.5 MCG/INH Inhalation Once a day 1 puff 24h Aug, Active Nebulizer/Adult Mask 1 by inhalation route as directed as directed Jan Active Gabapentin 300 MG Orally 2 times a day 1 capsule 12h Active Albuterol Sulfate (2.5 MG/3ML) 0.083% Inhalation up to 6 times per day as needed for shortness of breath/wheezing 3 ml Jan, Active Aspirin 81 mg chew 1 tablet (81 mg) by oral route once daily Oct, Active RESULTS No Results PROCEDURES No Known procedures IMMUNIZATIONS No Known Immunizations
--- OUTSIDE RECORDS SUMMARY | 2017-12-07 10:27 | XMS REPORT ---
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 Active 348484300 Problem Uncontrolled type 2 diabetes mellitus without complication, without long-term current use of insulin E11.65 Active 111568750 Problem Controlled type 2 diabetes mellitus without complication, without long -term current use of insulin E11.9 Active 499200750 Problem Clostridium difficile diarrhea A04.7 Active 1346052456935 Problem Hypomagnesemia E83.42 Active 259405992 Problem Leg cramps, sleep related G47.62 Active 53353687 Problem Hyperlipidemia LDL goal <70 E78.5 Active 77397522 Problem Recurrent pneumonia J18.9 Active 916473966 Problem COPD exacerbation J44.1 Active 109648083 Problem Encounter for Zostavax administration Z23 Active 847413632 Problem High triglycerides E78.1 Active 483868857 Problem Arthritis, lumbar spine M47.9 Active 991044063 Problem Essential hypertension with goal blood pressure less than 130\/80 I10 Active 28738862 Problem Diabetes type 2, controlled E11.9 Active 70460930 Problem Pure hypercholesterolemia E78.0 Active 448987032 ALLERGIES Substance Reaction Event Type Date Status Lipitor muscle aches Drug Allergy Oct, Active SOCIAL HISTORY No smoking Hx information available PLAN OF CARE Activity Details Follow Up 3 Months Reason:DM VITAL SIGNS Height 66 in 2016-11-13 Weight 186 lbs 2016-11-13 Temperature 96.9 degrees Fahrenheit 2016-11-13 Heart Rate 88 bpm 2016-11-13 Respiratory Rate 18 2016-11-13 BMI 30.02 kg/m2 2016-11-13 Blood pressure systolic 108 mmHg 2016-11-13 Blood pressure diastolic 64 mmHg 2016-11-13 MEDICATIONS Medication Instructions Dosage Frequency Start Date End Date Duration Status Omeprazole 20 MG TAKE 1 CAPSULE ONE TIME DAILY 90 Active Metformin HCl 1000 MG TAKE 1 TABLET TWICE DAILY 90 Active Potassium 99 MG Orally Once a day 1 tablet 24h Active Fluticasone Propionate 50 MCG/ACT USE 1 SPRAY IN EACH NOSTRIL TWICE DAILY 30 Active Metoprolol Succinate ER 25 MG TAKE 1 TABLET TWICE DAILY 90 Active Lisinopril-Hydrochlorothiazide 10-12.5 MG TAKE 1 TABLET ONE TIME DAILY 90 Active Fish Oil 1000 MG Orally Once a day 1 capsule 24h Active Allopurinol 300 MG Orally 2 times a day 1 tablet 12h Active Aspirin 81 mg chew 1 tablet (81 mg) by oral route once daily Oct, Active Singulair 10 MG Orally Once a day 1 tablet in the evening 24h Active Apixaban 5 MG Orally 2 times a day 1 tablet 12h Active Crestor 10 mg Orally Once a day in the evening 1 tablet Active Incruse Ellipta 62.5 MCG/INH Inhalation Once a day 1 puff 24h Aug, Active Voltaren 1 % Active Gabapentin 300 MG Orally 2 times a day 1 capsule 12h Active Albuterol Sulfate (2.5 MG/3ML) 0.083% Inhalation up to 6 times per day as needed for shortness of breath/wheezing 3 ml Jan, Active Trulicity 0.75 MG/0.5ML Subcutaneous once weekly 0.5 ml Jul, Active Glimepiride 4 MG TAKE 1 TABLET WITH BREAKFAST OR THE FIRST MAIN MEAL OF THE DAY ONCE A DAY 30 Active Ventolin HFA 90 mcg/actuation inhale 2 puff by Inhalation route as needed every 6 hours PRN for cough or wheeze Mar, Active Tricor 145 MG TAKE 1 TABLET BY MOUTH ONCE DAILY 90 Active Fluoxetine HCl 20 MG TAKE 2 CAPSULES ONE TIME DAILY 90 Active Symbicort 160-4.5 MCG/ACT Inhalation Twice a day 2 puffs 12h Active Nebulizer/Adult Mask 1 by inhalation route as directed as directed Jan Active RESULTS Name Result Date Reference Range A1C (IN HOUSE) 2016-11-13 A1C IN HOUSE 7.3 4.3 - 5.6 % Previous A1c 7.3 Lot [id number] Exp date 08/13 TSH W/ FREE T4 2016-11-13 TSH 2.010 0.450-4.500 T4,Free(Direct) 1.34 0.82-1.77 CBC 2016-11-13 WBC 6.2 3.4-10.8 RBC 4.86 4.14-5.80 Hemoglobin 13.9 12.6-17.7 Hematocrit 44.0 37.5-51.0 MCV 91 79-97 MCH 28.6 26.6-33.0 MCHC 31.6 31.5-35.7 RDW 15.1 12.3-15.4 Platelets 197 150-379 Neutrophils 43 Lymphs 34 Monocytes 14 Eos 8 Basos 1 Immature Cells Neutrophils (Absolute) 2.7 1.4-7.0 Lymphs (Absolute) 2.1 0.7-3.1 Monocytes(Absolute) 0.9 0.1-0.9 Eos (Absolute) 0.5 0.0-0.4 Baso (Absolute) 0.1 0.0-0.2 Immature Granulocytes Immature Grans (Abs) Hematology Comments: Note: LIPID PANEL 2016-11-13 Cholesterol, Total 143 100-199 Triglycerides 342 0-149 HDL Cholesterol 29 >39 VLDL Cholesterol Earl 68 5-40 LDL Cholesterol Calc 46 0-99 CMP 2016-11-13 Glucose, Serum 157 65-99 BUN 26 8-27 Creatinine, Serum 0.70 0.76-1.27 eGFR If NonAfricn Am 101 >59 eGFR If Africn Am 117 >59 BUN/Creatinine Ratio 37 10-22 Sodium, Serum 138 134-144 Potassium, Serum 4.5 3.5-5.2 Chloride, Serum 96 96-106 Carbon Dioxide, Total 26 18-29 Calcium, Serum 10.0 8.6-10.2 Protein, Total, Serum 7.2 6.0-8.5 Albumin, Serum 4.3 3.6-4.8 Globulin, Total 2.9 1.5-4.5 A/G Ratio 1.5 1.1-2.5 Bilirubin, Total 0.4 0.0-1.2 Alkaline Phosphatase, S 61 39-117 AST (SGOT) 32 0-40 ALT (SGPT) 42 0-44 PROCEDURES Procedure Date Ordered Related Diagnosis Body Site ROUTINE VENIPUNCTURE 2016-11-13 N[facility] Nov [facility], 2016 [facility] VISIT ESTABLISHED PATIENT Nov 13, 2016 GLYCATED HEMOGLOBIN TEST Nov 13, 2016 VENIPUNCT, ROUTINE* Nov 13, 2016 Office Visit, Est Pt., Level 3 Nov 13, 2016 IMMUNIZATIONS No Known Immunizations
--- OUTSIDE RECORDS SUMMARY | 2017-12-07 10:27 | XMS REPORT ---
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 Active 676707437 Problem Uncontrolled type 2 diabetes mellitus without complication, without long-term current use of insulin E11.65 Active 469043342 Problem Controlled type 2 diabetes mellitus without complication, without long -term current use of insulin E11.9 Active 641588199 Problem Clostridium difficile diarrhea A04.7 Active 5121400407895 Problem Hypomagnesemia E83.42 Active 227304808 Problem Leg cramps, sleep related G47.62 Active 15123078 Problem Hyperlipidemia LDL goal <70 E78.5 Active 07751014 Problem Recurrent pneumonia J18.9 Active 383852990 Problem COPD exacerbation J44.1 Active 591379708 Problem Encounter for Zostavax administration Z23 Active 423527570 Problem High triglycerides E78.1 Active 094185883 Problem Arthritis, lumbar spine M47.9 Active 314198054 Problem Essential hypertension with goal blood pressure less than 130\/80 I10 Active 48213297 Problem Diabetes type 2, controlled E11.9 Active 73708449 Problem Pure hypercholesterolemia E78.0 Active 863970174 ALLERGIES No Information SOCIAL HISTORY Never Assessed [...]
--- OUTSIDE RECORDS SUMMARY | 2017-12-07 10:31 | XMS REPORT | Continuity of Care Document ---
Author Author [facility] Address Unknown Phone Unavailable Allergies Active Description Code Type Severity Reaction Onset Reported/Identified Relationship to Patient Clinical Status Yes aspirin Drug Allergy 08/06/2011 Yes aspirin Drug Allergy N/A N/A 08/06/2011 Yes No Known Drug Allergies [id number] Drug Allergy Unknown N/A 01/11/2016 Yes atorvastatin [id number] Drug Allergy Mild N/A 03/26/2017 Medications There is no data. Problems Date Dx Coded Attending Type Code [...] DO 515 POSTINFLAMMATORY PULMONARY FIBROSIS 08/06/2011 BISI MCCORMICK MD 278.00 OBESITY 08/06/2011 BISI MCCORMICK MD 515 POSTINFLAMMATORY PULMONARY FIBROSIS 08/06/2011 EATON 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, MARIBEL L 278.00 OBESITY 08/06/2011 EATON 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, MARIBEL L 515 POSTINFLAMMATORY PULMONARY FIBROSIS 08/06/2011 GONZALEZ DO, ANTONIO K 278.00 OBESITY 08/06/2011 GONZALEZ DO, ANTONIO K 515 POSTINFLAMMATORY PULMONARY FIBROSIS 08/06/2011 EATON 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, MARIBEL L 278.00 OBESITY 08/06/2011 EATON 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, MARIBEL L 515 POSTINFLAMMATORY PULMONARY FIBROSIS 08/06/2011 GONZALEZ DO, ANTONIO K 278.00 OBESITY 08/06/2011 GONZALEZ DO, ANTONIO K 515 POSTINFLAMMATORY PULMONARY FIBROSIS 08/06/2011 GONZALEZ DO, ANTONIO K 278.00 OBESITY 08/06/2011 GONZALEZ DO, ANTONIO K 515 POSTINFLAMMATORY PULMONARY FIBROSIS 08/06/2011 EATON 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, MARIBEL L 278.00 OBESITY 08/06/2011 EATON 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, MARIBEL L 515 POSTINFLAMMATORY PULMONARY FIBROSIS 08/06/2011 EATON 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, MARIBEL L 278.00 OBESITY 08/06/2011 EATON 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, MARIBEL L 515 POSTINFLAMMATORY PULMONARY FIBROSIS 08/06/2011 GONZALEZ DO, ANTONIO K 278.00 OBESITY 08/06/2011 GONZALEZ DO, ANTONIO K 515 POSTINFLAMMATORY PULMONARY FIBROSIS 08/06/2011 GONZALEZ DO, ANTONIO K 278.00 OBESITY 08/06/2011 GONZALEZ DO, ANTONIO K 515 POSTINFLAMMATORY PULMONARY FIBROSIS 08/06/2011 JACE DOMÍNGUEZ ALI 278.00 OBESITY 08/06/2011 JACE DOMÍNGUEZ ALI 515 POSTINFLAMMATORY PULMONARY FIBROSIS 08/06/2011 EATON 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, MARIBEL L 278.00 OBESITY 08/06/2011 EATON 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, MARIBEL L 515 POSTINFLAMMATORY PULMONARY FIBROSIS [...] 682.3 SKIN ABSCESS OF THE ARM 08/21/2011 EATJACKIE SANTOS MARIBEL L 250.00 DIABETES MELLITUS TYPE 2 - UNCOMPLICATED, CONTROLLED 08/21/2011 EATON 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, MARIBEL L 401.1 ESSENTIAL HYPERTENSION BENIGN 08/21/2011 ABDIRAHMAN 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, MARIBEL L 493.00 ASTHMA EXTRINSIC 08/21/2011 EATON 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, MARIBEL L 530.81 ESOPHAGEAL REFLUX 08/21/2011 EATON 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, MARIBEL L 682.3 SKIN ABSCESS OF [...] JACE DOMÍNGUEZ, ALI 530.81 ESOPHAGEAL REFLUX 08/21/2011 JACE DOMÍNGUEZ ALI 682.3 SKIN ABSCESS OF THE ARM 08/21/2011 EATON 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, MARIBEL L 250.00 DIABETES MELLITUS TYPE 2 - UNCOMPLICATED, CONTROLLED 08/21/2011 EATON 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, MARIBEL L 401.1 ESSENTIAL HYPERTENSION BENIGN 08/21/2011 EATON 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, MARIBEL L 493.00 ASTHMA EXTRINSIC 08/21/2011 EATON 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, MARIBEL L 530.81 ESOPHAGEAL REFLUX 08/21/2011 EATON 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, MARIBEL L 682.3 SKIN ABSCESS OF THE ARM 08/21/2011 GONZALEZ DO, ANTONIO K 250.00 DIABETES MELLITUS TYPE 2 - UNCOMPLICATED, CONTROLLED 08/21/2011 GONZALEZ DO, ANTONIO K 401.1 ESSENTIAL HYPERTENSION BENIGN 08/21/2011 GONZALEZ DO, ANTONIO K 493.00 ASTHMA EXTRINSIC 08/21/2011 GONZALEZ DO, ANTONIO K 530.81 ESOPHAGEAL REFLUX 08/21/2011 GONZALEZ DO, ANTONIO K 682.3 SKIN ABSCESS OF THE ARM 08/21/2011 EATON 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, MARIBEL L 250.00 DIABETES MELLITUS TYPE 2 - UNCOMPLICATED, CONTROLLED 08/21/2011 EATON 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, MARIBEL L 401.1 ESSENTIAL HYPERTENSION BENIGN 08/21/2011 EATON 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, MARIBEL L 493.00 ASTHMA EXTRINSIC 08/21/2011 EATON 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, MARIBEL L 530.81 ESOPHAGEAL REFLUX 08/21/2011 EATON 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, MARIBEL L 682.3 SKIN ABSCESS OF [...] SKIN ABSCESS OF THE ARM 08/21/2011 EATON 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, MARIBEL L 250.00 DIABETES MELLITUS TYPE 2 - UNCOMPLICATED, CONTROLLED 08/21/2011 EATON 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, MARIBEL L 401.1 ESSENTIAL HYPERTENSION BENIGN 08/21/2011 EATON 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, MARIBEL L 493.00 ASTHMA EXTRINSIC 08/21/2011 EATON 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, MARIBEL L 530.81 ESOPHAGEAL REFLUX 08/21/2011 EATON 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, MARIBEL L 682.3 SKIN ABSCESS OF THE ARM 08/21/2011 EATON 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, MARIBEL L 250.00 DIABETES MELLITUS TYPE 2 - UNCOMPLICATED, CONTROLLED 08/21/2011 EATON 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, MARIBEL L 401.1 ESSENTIAL HYPERTENSION BENIGN 08/21/2011 EATON 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, MARIBEL L 493.00 ASTHMA EXTRINSIC 08/21/2011 EATON 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, MARIBEL L 530.81 ESOPHAGEAL REFLUX 08/21/2011 EATON 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, MARIBEL L 682.3 SKIN ABSCESS OF THE ARM 08/21/2011 GONZALEZ DO, ANTONIO K 250.00 DIABETES MELLITUS TYPE 2 - UNCOMPLICATED, CONTROLLED 08/21/2011 GONZALEZ DO, ANTONIO K 401.1 ESSENTIAL HYPERTENSION BENIGN 08/21/2011 GONZALEZ DO, ANTONIO K 493.00 ASTHMA EXTRINSIC 08/21/2011 GONZALEZ DO, ANTONOI K 530.81 ESOPHAGEAL REFLUX 08/21/2011 GONZALEZ DO, [...] SKIN ABSCESS OF THE ARM 08/21/2011 JACE DOMÍNGUEZ ALI 250.00 DIABETES MELLITUS TYPE 2 - UNCOMPLICATED, CONTROLLED 08/21/2011 JACE DOMÍNGUEZ, ALI 401.1 ESSENTIAL HYPERTENSION BENIGN 08/21/2011 JACE DOMÍNGUEZ, ALI 493.00 ASTHMA EXTRINSIC 08/21/2011 JACE DOMÍNGUEZ ALI 530.81 ESOPHAGEAL REFLUX 08/21/2011 JACE DOMÍNGUEZ ALI 682.3 SKIN ABSCESS OF THE ARM 08/21/2011 EATON 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, MARIBEL L 250.00 DIABETES MELLITUS TYPE 2 - UNCOMPLICATED, CONTROLLED 08/21/2011 EATON 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, MARIBEL L 401.1 ESSENTIAL HYPERTENSION BENIGN 08/21/2011 EATON 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, MARIBEL L 493.00 ASTHMA EXTRINSIC 08/21/2011 EATON 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, MARIBEL L 530.81 ESOPHAGEAL REFLUX 08/21/2011 EATON 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, MARIBEL L 682.3 SKIN ABSCESS OF [...] of pleasure from usual activities (anhedonia) 10/04/2011 EATON 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, MARIBEL L 780.99 loss of pleasure from usual activities (anhedonia) 10/04/2011 780.99 loss of pleasure from usual activities (anhedonia) 10/04/2011 780.99 loss of pleasure from usual activities (anhedonia) 10/04/2011 780.99 loss of pleasure from usual activities (anhedonia) 10/04/2011 GONZALEZ DO ANTONIO K 780.99 loss of pleasure from usual activities (anhedonia) 10/04/2011 BISI MCCORMICK MD 780.99 loss of pleasure from usual activities (anhedonia) 10/04/2011 EATON 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MARIBEL Delgadillo L 780.99 loss of pleasure from usual activities (anhedonia) 10/04/2011 GONZALEZ DO ANTONIO K 780.99 loss of pleasure from usual activities (anhedonia) 10/04/2011 EATON 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BISI DelgadilloSON L 780.99 loss of pleasure from usual activities (anhedonia) 10/04/2011 GONZALEZ DO ANTONIO K 780.99 loss of pleasure from usual activities (anhedonia) 10/04/2011 GONZALEZ DO, ANTONIO K 780.99 loss of pleasure from usual activities (anhedonia) 10/04/2011 EATON 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 MARIBEL L 780.99 loss of pleasure from usual activities (anhedonia) 10/04/2011 EATON 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, MARIBEL L 780.99 loss of pleasure from usual activities (anhedonia) 10/04/2011 GONZALEZ DO, ANTONIO K 780.99 loss of pleasure from usual activities (anhedonia) 10/04/2011 LIZZY GONZALEZ DOA K 780.99 loss of pleasure from usual activities (anhedonia) 10/04/2011 BISI MCCORMICK MD 780.99 loss of pleasure from usual activities (anhedonia) 10/04/2011 EATMARIBEL MEJIA APRN L 780.99 loss of pleasure from usual activities (anhedonia) 11/08/2011 372.00 CONJUNCTIVITIS ACUTE BOTH EYES 11/08/2011 [...] ACUTE BOTH EYES 11/08/2011 ANTONIO GONZALEZ DO K 372.00 CONJUNCTIVITIS ACUTE BOTH EYES 11/08/2011 BISI MCCORMICK MD 372.00 CONJUNCTIVITIS ACUTE BOTH EYES 11/08/2011 [...] L 372.00 CONJUNCTIVITIS ACUTE BOTH EYES 11/08/2011 EATBISI MEJIA APRNSON L 372.00 CONJUNCTIVITIS ACUTE BOTH EYES 11/08/2011 GONZALEZ DO, ANTONIO K 372.00 CONJUNCTIVITIS ACUTE BOTH EYES 11/08/2011 GONZALEZ DO, ANTONIO K 372.00 CONJUNCTIVITIS ACUTE BOTH EYES 11/08/2011 JACE DOMÍNGUEZ, BISI 372.00 CONJUNCTIVITIS ACUTE BOTH EYES 11/08/2011 BISI GARY APRNSON L 372.00 CONJUNCTIVITIS ACUTE BOTH EYES [...] 296.32 MO DEPRESSIVE RECURRENT MODERATE 11/19/2011 BISI MCCORMICK MD 296.32 MO DEPRESSIVE RECURRENT MODERATE 11/19/2011 EATBISI MEJIA APRNSON L 296.32 MO DEPRESSIVE RECURRENT MODERATE 11/19/2011 GONZALEZ DO ANTONIO K 296.32 MO DEPRESSIVE RECURRENT MODERATE 11/19/2011 EATBISI MEJIA APRNSON L 296.32 MO DEPRESSIVE RECURRENT MODERATE 11/19/2011 GONZALEZ DO ANTONIO K 296.32 MO DEPRESSIVE RECURRENT MODERATE 11/19/2011 GONZALEZ DO, ANTONIO K 296.32 MO DEPRESSIVE RECURRENT MODERATE 11/19/2011 EATJACKIE SANTOS MARIBEL L 296.32 MO DEPRESSIVE RECURRENT MODERATE 11/19/2011 EATJACKIE SANTOS MARIBEL L 296.32 MO DEPRESSIVE RECURRENT MODERATE 11/19/2011 ANTONIO GONZALEZ DO K 296.32 MO DEPRESSIVE RECURRENT MODERATE 11/19/2011 ANTONIO GONZALEZ DO K 296.32 MO DEPRESSIVE RECURRENT MODERATE 11/19/2011 BISI MCCORMICK MD 296.32 MO DEPRESSIVE RECURRENT MODERATE 11/19/2011 MARIBEL GARY APRN 296.32 MO DEPRESSIVE RECURRENT MODERATE 12/06/2011 726.90 TENDONITIS 12/06/2011 726.90 TENDONITIS 12/06/2011 726.90 TENDONITIS 12/06/2011 726.90 TENDONITIS 12/06/2011 MAXX JIMENEZ 726.90 TENDONITIS 12/06/2011 726.90 TENDONITIS 12/06/2011 MARIBEL GARY APRN 726.90 TENDONITIS 12/06/2011 726.90 TENDONITIS 12/06/2011 726.90 TENDONITIS 12/06/2011 726.90 TENDONITIS 12/06/2011 ANTONIO GONZALEZ DO K 726.90 TENDONITIS 12/06/2011 BISI MCCORMICK MD 726.90 TENDONITIS 12/06/2011 MARIBEL GARY APRN L 726.90 TENDONITIS 12/06/2011 ANTONIO GONZALEZ DO K 726.90 TENDONITIS 12/06/2011 MARIBEL GARY APRN L 726.90 TENDONITIS 12/06/2011 LIZZY GONZALEZ DOA K 726.90 TENDONITIS 12/06/2011 LIZZY GONZALEZ DOA K 726.90 TENDONITIS 12/06/2011 MARIBEL GARY APRN L 726.90 TENDONITIS 12/06/2011 EATMARIBEL MEJIA APRN L 726.90 TENDONITIS 12/06/2011 LIZZY GONZALEZ DOA K 726.90 TENDONITIS 12/06/2011 LIZZY GONZALEZ DOA K 726.90 TENDONITIS 12/06/2011 BISI MCCORMICK MD 726.90 TENDONITIS 12/06/2011 MARIBEL GARY APRN [...] AFFECTIVE DISORDER RECURRENT EPISODE UNSPECIFIED DEGREE 03/05/2012 CARLOS DO ANTONIO K 296.30 MAJOR DEPRESSIVE AFFECTIVE DISORDER RECURRENT EPISODE UNSPECIFIED DEGREE 03/05/2012 BISI MCCORMICK MD 296.30 MAJOR DEPRESSIVE AFFECTIVE DISORDER RECURRENT [...] DISORDER RECURRENT EPISODE UNSPECIFIED DEGREE 03/05/2012 BISI MCCORMICK MD 296.30 MAJOR DEPRESSIVE AFFECTIVE DISORDER RECURRENT [...] K 300.02 AN GEN ANXIETY 04/07/2012 BISI MCCORMICK MD 300.02 AN GEN ANXIETY 04/07/2012 MARIBEL GARY APRN 300.02 AN GEN ANXIETY 04/07/2012 GONZALEZ DO, ANTONIO K 300.02 AN GEN ANXIETY 04/07/2012 MARIBEL GARY APRN L 300.02 AN GEN ANXIETY 04/07/2012 GONZALEZ DO, ANTONIO K 300.02 AN GEN ANXIETY 04/07/2012 GONZALEZ DO, ANTONIO K 300.02 AN GEN ANXIETY 04/07/2012 MARIBEL GARY APRN L 300.02 AN GEN ANXIETY 04/07/2012 MARIBEL GARY APRN 300.02 AN GEN ANXIETY 04/07/2012 GONZALEZ DO, ANTONIO K 300.02 AN GEN ANXIETY 04/07/2012 GONZALEZ DO, ANTONIO K 300.02 AN GEN ANXIETY 04/07/2012 BISI MCCORMICK MD 300.02 AN GEN ANXIETY 04/07/2012 MARIBEL [...] K 786.09 difficulty breathing (dyspnea) 04/28/2012 BISI MCCORMICK MD 429.3 CARDIOMEGALY 04/28/2012 BISI MCCORMICK MD 786.09 difficulty breathing (dyspnea) 04/28/2012 EATON 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, MARIBEL L 429.3 CARDIOMEGALY 04/28/2012 EATON 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, MARIBEL L 786.09 difficulty breathing (dyspnea) 04/28/2012 GONZALEZ DO, ANTONIO K 429.3 CARDIOMEGALY 04/28/2012 GONZALEZ DO, ANTONIO K 786.09 difficulty breathing (dyspnea) 04/28/2012 EATON 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 MARIBEL L 429.3 CARDIOMEGALY 04/28/2012 EATON 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, MARIBEL L 786.09 difficulty breathing (dyspnea) 04/28/2012 GONZALEZ DO, ANTONIO K 429.3 CARDIOMEGALY 04/28/2012 GONZALEZ DO, ANTONIO K 786.09 difficulty breathing (dyspnea) 04/28/2012 GONZALEZ DO, ANTONIO K 429.3 CARDIOMEGALY 04/28/2012 GONZALEZ DO, ANTONIO K 786.09 difficulty breathing (dyspnea) 04/28/2012 EATON 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, MARIBEL L 429.3 CARDIOMEGALY 04/28/2012 EATON 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, MARIBEL L 786.09 difficulty breathing (dyspnea) 04/28/2012 EATON 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, MARIBEL L 429.3 CARDIOMEGALY 04/28/2012 EATON 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, MARIBEL L 786.09 difficulty breathing (dyspnea) 04/28/2012 GONZALEZ DO, ANTONIO K 429.3 CARDIOMEGALY 04/28/2012 GONZALEZ DO, ANTONIO K 786.09 difficulty breathing (dyspnea) 04/28/2012 GONZALEZ DO, ANTONIO K 429.3 CARDIOMEGALY 04/28/2012 GONZALEZ DO, ANTONIO K 786.09 difficulty breathing (dyspnea) 04/28/2012 BISI MCCORMICK MD 429.3 CARDIOMEGALY 04/28/2012 BISI MCCORMICK MD 786.09 difficulty breathing (dyspnea) 04/28/2012 EATMARIBEL MEJIA APRN 429.3 CARDIOMEGALY 04/28/2012 PHYLLISMARIBEL MEJIA APRN 786.09 difficulty breathing (dyspnea) 05/01/2012 356.9 NEUROPATHY 05/01/2012 703.0 INGROWN TOENAIL (infection) 05/01/2012 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 05/01/2012 356.9 NEUROPATHY 05/01/2012 703.0 INGROWN TOENAIL (infection) 05/01/2012 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 05/01/2012 356.9 NEUROPATHY 05/01/2012 703.0 INGROWN TOENAIL (infection) 05/01/2012 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 05/01/2012 356.9 NEUROPATHY 05/01/2012 703.0 INGROWN TOENAIL (infection) 05/01/2012 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 05/01/2012 MAXX JIMENEZ 356.9 NEUROPATHY 05/01/2012 MAXX JIMENEZ 703.0 INGROWN TOENAIL (infection) 05/01/2012 MAXX JIMENEZ 715.27 DJD -SECONDARY 05/01/2012 356.9 NEUROPATHY 05/01/2012 703.0 INGROWN TOENAIL (infection) 05/01/2012 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 05/01/2012 MARIBEL GARY APRN 356.9 NEUROPATHY 05/01/2012 MARIBEL GARY APRN 703.0 INGROWN TOENAIL (infection) 05/01/2012 MARIBEL GARY APRN 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 05/01/2012 356.9 NEUROPATHY 05/01/2012 703.0 INGROWN TOENAIL (infection) 05/01/2012 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 05/01/2012 356.9 NEUROPATHY 05/01/2012 703.0 INGROWN TOENAIL (infection) 05/01/2012 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 05/01/2012 356.9 NEUROPATHY 05/01/2012 703.0 INGROWN TOENAIL (infection) 05/01/2012 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 05/01/2012 GONZALEZ DO ANTONIO K 356.9 NEUROPATHY 05/01/2012 GONZALEZ DO ANTONIO K 703.0 INGROWN TOENAIL (infection) 05/01/2012 GONZALEZ DO, ANTONIO K 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 05/01/2012 BISI MCCORMICK MD 356.9 NEUROPATHY 05/01/2012 JACE DOMÍNGUEZ, BISI 703.0 INGROWN TOENAIL (infection) 05/01/2012 JACE DOMÍNGUEZ, BISI 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 05/01/2012 EATON 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, MARIBEL L 356.9 NEUROPATHY 05/01/2012 EATON 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, MARIBEL L 703.0 INGROWN TOENAIL (infection) 05/01/2012 EATON 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, MARIBEL L 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 05/01/2012 GONZALEZ DO, ANTONIO K 356.9 NEUROPATHY 05/01/2012 GONZALEZ DO, ANTONIO K 703.0 INGROWN TOENAIL (infection) 05/01/2012 GONZALEZ DO, ANTONIO K 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 05/01/2012 EATON 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, MARIBEL L 356.9 NEUROPATHY 05/01/2012 EATON 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, MARIBEL L 703.0 INGROWN TOENAIL (infection) 05/01/2012 EATON 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, MARIBEL L 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 05/01/2012 GONZALEZ DO, ANTONIO K 356.9 NEUROPATHY 05/01/2012 GONZALEZ DO, ANTONIO K 703.0 INGROWN TOENAIL (infection) 05/01/2012 GONZALEZ DO, ANTONIO K 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 05/01/2012 GONZALEZ DO, ANTONIO K 356.9 NEUROPATHY 05/01/2012 GONZALEZ DO, ANTONIO K 703.0 INGROWN TOENAIL (infection) 05/01/2012 GONZALEZ DO, ANTONIO K 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 05/01/2012 EATON 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, MARIBEL L 356.9 NEUROPATHY 05/01/2012 EATON 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, MARIBEL L 703.0 INGROWN TOENAIL (infection) 05/01/2012 EATON 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, MARIBEL L 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 05/01/2012 EATON 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, MARIBEL L 356.9 NEUROPATHY 05/01/2012 EATON 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, MARIBEL L 703.0 INGROWN TOENAIL (infection) 05/01/2012 EATON 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, MARIBEL L 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 05/01/2012 GONZALEZ DO, ANTONIO K 356.9 NEUROPATHY 05/01/2012 GONZALEZ DO, ANTONIO K 703.0 INGROWN TOENAIL (infection) 05/01/2012 GONZALEZ DO, ANTONIO K 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 05/01/2012 GONZALEZ DO, ANTONIO K 356.9 NEUROPATHY 05/01/2012 GONZALEZ DO, ANTONIO K 703.0 INGROWN TOENAIL (infection) 05/01/2012 GONZALEZ DO, ANTONIO K 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 05/01/2012 BISI MCCORMICK MD 356.9 NEUROPATHY 05/01/2012 BISI MCCORMICK MD 703.0 INGROWN TOENAIL (infection) 05/01/2012 BISI MCCORMICK MD 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 05/01/2012 MARIBEL GARY APRN 356.9 NEUROPATHY 05/01/2012 MARIBEL GARY APRN 703.0 INGROWN TOENAIL (infection) 05/01/2012 MARIBEL GARY APRN 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 05/05/2012 V03.82 NEED FOR PROPHYLACTIC VACCINATION AND INOCULATION AGAINST STREPTOCOCCUS PNEUMONIAE [ PNEUMOCOCCUS] 05/05/2012 V74.1 SCREENING EXAMINATION FOR PULMONARY TUBERCULOSIS 05/05/2012 V03.82 NEED FOR PROPHYLACTIC VACCINATION AND INOCULATION AGAINST STREPTOCOCCUS PNEUMONIAE [ PNEUMOCOCCUS] 05/05/2012 V74.1 SCREENING EXAMINATION FOR PULMONARY TUBERCULOSIS 05/05/2012 V03.82 NEED FOR PROPHYLACTIC VACCINATION AND INOCULATION AGAINST STREPTOCOCCUS PNEUMONIAE [ PNEUMOCOCCUS] 05/05/2012 V74.1 SCREENING EXAMINATION FOR PULMONARY TUBERCULOSIS 05/05/2012 V03.82 NEED FOR PROPHYLACTIC VACCINATION AND INOCULATION AGAINST STREPTOCOCCUS PNEUMONIAE [ PNEUMOCOCCUS] 05/05/2012 V74.1 SCREENING EXAMINATION FOR PULMONARY TUBERCULOSIS 05/05/2012 MAXX JIMENEZ V03.82 NEED FOR PROPHYLACTIC VACCINATION AND INOCULATION AGAINST STREPTOCOCCUS PNEUMONIAE [PNEUMOCOCCUS] 05/05/2012 MAXX JIMENEZ V74.1 SCREENING EXAMINATION FOR PULMONARY TUBERCULOSIS 05/05/2012 V03.82 NEED FOR PROPHYLACTIC VACCINATION AND INOCULATION AGAINST STREPTOCOCCUS PNEUMONIAE [ PNEUMOCOCCUS] 05/05/2012 V74.1 SCREENING EXAMINATION FOR PULMONARY TUBERCULOSIS 05/05/2012 MARIBEL GARY APRN V03.82 NEED FOR PROPHYLACTIC VACCINATION AND INOCULATION AGAINST STREPTOCOCCUS PNEUMONIAE [PNEUMOCOCCUS] 05/05/2012 MARIBEL GARY APRN V74.1 SCREENING EXAMINATION FOR PULMONARY TUBERCULOSIS 05/05/2012 V03.82 NEED FOR PROPHYLACTIC VACCINATION AND INOCULATION AGAINST STREPTOCOCCUS PNEUMONIAE [ PNEUMOCOCCUS] 05/05/2012 V74.1 SCREENING EXAMINATION FOR PULMONARY TUBERCULOSIS 05/05/2012 V03.82 NEED FOR PROPHYLACTIC VACCINATION AND INOCULATION AGAINST STREPTOCOCCUS PNEUMONIAE [ PNEUMOCOCCUS] 05/05/2012 V74.1 SCREENING EXAMINATION FOR PULMONARY TUBERCULOSIS 05/05/2012 V03.82 NEED FOR PROPHYLACTIC VACCINATION AND INOCULATION AGAINST STREPTOCOCCUS PNEUMONIAE [ PNEUMOCOCCUS] 05/05/2012 V74.1 SCREENING EXAMINATION FOR PULMONARY TUBERCULOSIS 05/05/2012 GONZALEZ DO ANTONIO K V03.82 NEED FOR PROPHYLACTIC VACCINATION AND INOCULATION AGAINST STREPTOCOCCUS PNEUMONIAE [PNEUMOCOCCUS] 05/05/2012 GONZALEZ DO ANTONIO K V74.1 SCREENING EXAMINATION FOR PULMONARY TUBERCULOSIS 05/05/2012 BISI MCCORMICK MD V03.82 NEED FOR PROPHYLACTIC VACCINATION AND INOCULATION AGAINST STREPTOCOCCUS PNEUMONIAE [PNEUMOCOCCUS] 05/05/2012 BISI MCCORMICK MD V74.1 SCREENING EXAMINATION FOR PULMONARY TUBERCULOSIS 05/05/2012 MARIBEL GARY APRN V03.82 NEED FOR PROPHYLACTIC VACCINATION AND INOCULATION AGAINST STREPTOCOCCUS PNEUMONIAE [PNEUMOCOCCUS] 05/05/2012 MARIBEL GARY APRN V74.1 SCREENING EXAMINATION FOR PULMONARY TUBERCULOSIS 05/05/2012 GONZALEZ DO ANTONIO K V03.82 NEED FOR PROPHYLACTIC VACCINATION AND INOCULATION AGAINST STREPTOCOCCUS PNEUMONIAE [PNEUMOCOCCUS] 05/05/2012 CARLOS BENSON ANTONIO K V74.1 SCREENING EXAMINATION FOR PULMONARY TUBERCULOSIS 05/05/2012 MARIBEL GARY APRN L V03.82 NEED FOR PROPHYLACTIC VACCINATION AND INOCULATION AGAINST STREPTOCOCCUS PNEUMONIAE [PNEUMOCOCCUS] 05/05/2012 MARIBEL GARY APRN L V74.1 SCREENING EXAMINATION FOR PULMONARY TUBERCULOSIS 05/05/2012 [...] INOCULATION AGAINST STREPTOCOCCUS PNEUMONIAE [PNEUMOCOCCUS] 05/05/2012 PHYLLISON 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MARIBEL Delgadillo V74.1 SCREENING EXAMINATION FOR PULMONARY TUBERCULOSIS 05/05/2012 GONZALEZ DO, ANTONIO K V03.82 NEED FOR PROPHYLACTIC VACCINATION AND INOCULATION AGAINST STREPTOCOCCUS PNEUMONIAE [PNEUMOCOCCUS] 05/05/2012 GONZALEZ DO, ANTONIO K V74.1 SCREENING EXAMINATION FOR PULMONARY TUBERCULOSIS 05/05/2012 GONZALEZ DO, ANTONIO K V03.82 NEED FOR PROPHYLACTIC VACCINATION AND INOCULATION AGAINST STREPTOCOCCUS PNEUMONIAE [PNEUMOCOCCUS] 05/05/2012 GONZALEZ DO, ANTONIO K V74.1 SCREENING EXAMINATION FOR PULMONARY TUBERCULOSIS 05/05/2012 BISI MCCORMICK MD V03.82 NEED FOR PROPHYLACTIC VACCINATION AND INOCULATION AGAINST STREPTOCOCCUS PNEUMONIAE [PNEUMOCOCCUS] 05/05/2012 BISI MCCORMICK MD V74.1 SCREENING EXAMINATION FOR PULMONARY TUBERCULOSIS [...] 05/14/2012 MARIBEL GARY APRN 486 PNEUMONIA UNSPECIFIED 05/14/2012 486 PNEUMONIA UNSPECIFIED 05/14/2012 486 PNEUMONIA UNSPECIFIED 05/14/2012 486 PNEUMONIA UNSPECIFIED 05/14/2012 GONZALEZ DO, ANTONIO K 486 PNEUMONIA UNSPECIFIED 05/14/2012 BISI MCCORMICK MD 486 PNEUMONIA UNSPECIFIED 05/14/2012 MARIBEL GARY APRN 486 PNEUMONIA UNSPECIFIED 05/14/2012 GONZALEZ DO, ANTONIO K 486 PNEUMONIA UNSPECIFIED 05/14/2012 EATON 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MARIBEL Delgadillo L 486 PNEUMONIA UNSPECIFIED 05/14/2012 GONZALEZ DO, ANTONIO K 486 PNEUMONIA UNSPECIFIED 05/14/2012 GONZALEZ DO, ANTONIO K 486 PNEUMONIA UNSPECIFIED 05/14/2012 PHYLLISON 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MARIBEL Delgadillo L 486 PNEUMONIA UNSPECIFIED 05/14/2012 MARIBEL GARY APRN L 486 PNEUMONIA UNSPECIFIED 05/14/2012 GONZALEZ DO, ANTONIO K 486 PNEUMONIA UNSPECIFIED 05/14/2012 GONZALEZ DO, ANTONIO K 486 PNEUMONIA UNSPECIFIED 05/14/2012 BISI MCCORMICK MD 486 PNEUMONIA UNSPECIFIED 05/14/2012 MARIBEL GAYR APRN 486 PNEUMONIA UNSPECIFIED 06/18/2012 425.4 CARDIOMYOPHATHY 06/18/2012 425.4 CARDIOMYOPHATHY 06/18/2012 425.4 CARDIOMYOPHATHY 06/18/2012 425.4 CARDIOMYOPHATHY 06/18/2012 MAXX JIMENEZ 425.4 CARDIOMYOPHATHY 06/18/2012 425.4 CARDIOMYOPHATHY 06/18/2012 MARIBEL GARY APRN 425.4 CARDIOMYOPHATHY 06/18/2012 425.4 CARDIOMYOPHATHY 06/18/2012 425.4 CARDIOMYOPHATHY 06/18/2012 425.4 CARDIOMYOPHATHY 06/18/2012 CARLOS BENSON, ANTONIO K 425.4 CARDIOMYOPHATHY 06/18/2012 BISI MCCORMICK MD 425.4 CARDIOMYOPHATHY 06/18/2012 MARIBEL GARY APRN L 425.4 CARDIOMYOPHATHY 06/18/2012 GONZALEZ DO, ANTONIO K 425.4 CARDIOMYOPHATHY 06/18/2012 EATON BISI SANTOSSON L 425.4 CARDIOMYOPHATHY 06/18/2012 GONZALEZ DO, ANTONIO K 425.4 CARDIOMYOPHATHY 06/18/2012 GONZALEZ DO, ANTONIO K 425.4 CARDIOMYOPHATHY 06/18/2012 EATBISI MEJIA APRNSON L 425.4 CARDIOMYOPHATHY 06/18/2012 EATMARIBEL MEJIA APRN L 425.4 CARDIOMYOPHATHY 06/18/2012 GONZALEZ DO, ANTONIO K 425.4 CARDIOMYOPHATHY 06/18/2012 GONZALEZ DO, ANTONIO K 425.4 CARDIOMYOPHATHY 06/18/2012 BISI MCCORMICK MD 425.4 CARDIOMYOPHATHY 06/18/2012 EATMARIBEL MEJIA APRN 425.4 CARDIOMYOPHATHY 07/01/2012 496 CHRONIC OBSTRUCTIVE PULMONARY DISEASE 07/01/2012 496 CHRONIC OBSTRUCTIVE PULMONARY DISEASE 07/01/2012 496 CHRONIC OBSTRUCTIVE PULMONARY DISEASE 07/01/2012 496 CHRONIC OBSTRUCTIVE PULMONARY DISEASE 07/01/2012 MAXX JIMENEZ 496 CHRONIC OBSTRUCTIVE PULMONARY DISEASE 07/01/2012 496 CHRONIC OBSTRUCTIVE PULMONARY DISEASE 07/01/2012 MARIBEL GARY APRN 496 CHRONIC OBSTRUCTIVE PULMONARY DISEASE 07/01/2012 496 CHRONIC OBSTRUCTIVE PULMONARY DISEASE 07/01/2012 496 CHRONIC OBSTRUCTIVE PULMONARY DISEASE 07/01/2012 496 CHRONIC OBSTRUCTIVE PULMONARY DISEASE 07/01/2012 LIZZY GONZALEZ DOA K 496 CHRONIC OBSTRUCTIVE PULMONARY DISEASE 07/01/2012 BISI MCCORMICK MD CHRONIC OBSTRUCTIVE PULMONARY DISEASE 07/01/2012 MARIBEL GARY APRN 496 CHRONIC OBSTRUCTIVE PULMONARY DISEASE 07/01/2012 CARLOS BENSON ANTONIO K 496 CHRONIC OBSTRUCTIVE PULMONARY DISEASE 07/01/2012 BISI GARY APRNSON L 496 CHRONIC OBSTRUCTIVE PULMONARY DISEASE 07/01/2012 GONZALEZ DO ANTONIO K 496 CHRONIC OBSTRUCTIVE PULMONARY DISEASE 07/01/2012 GONZALEZ DO ANTONIO K 496 CHRONIC OBSTRUCTIVE PULMONARY DISEASE 07/01/2012 MARIBEL GARY APRN L 496 CHRONIC OBSTRUCTIVE PULMONARY DISEASE 07/01/2012 MARIBEL GARY APRN L 496 CHRONIC OBSTRUCTIVE PULMONARY DISEASE 07/01/2012 GONZALEZ LIZZY BENSONA K 496 CHRONIC OBSTRUCTIVE PULMONARY DISEASE 07/01/2012 ANTONIO GONZALEZ DO K 496 CHRONIC OBSTRUCTIVE PULMONARY DISEASE 07/01/2012 BISI MCCORMICK MD CHRONIC OBSTRUCTIVE PULMONARY DISEASE 07/01/2012 MARIBEL GARY APRN L 496 CHRONIC OBSTRUCTIVE PULMONARY DISEASE 07/09/2012 414.00 CORONARY ATHEROSCLEROSIS OF UNSPECIFIED TYPE OF VESSEL [place] OR GRAFT 07/09/2012 414.00 CORONARY ATHEROSCLEROSIS OF UNSPECIFIED TYPE OF VESSEL [place] OR GRAFT 07/09/2012 414.00 CORONARY ATHEROSCLEROSIS OF UNSPECIFIED TYPE OF VESSEL [place] OR GRAFT 07/09/2012 414.00 CORONARY ATHEROSCLEROSIS OF UNSPECIFIED TYPE OF VESSEL [place] OR GRAFT 07/09/2012 MAXX JIMENEZ 414.00 CORONARY ATHEROSCLEROSIS OF UNSPECIFIED TYPE OF VESSEL [place] OR GRAFT 07/09/2012 414.00 CORONARY ATHEROSCLEROSIS OF UNSPECIFIED TYPE OF VESSEL [place] OR GRAFT 07/09/2012 MARIBEL GARY APRN 414.00 CORONARY ATHEROSCLEROSIS OF UNSPECIFIED TYPE OF VESSEL [place] OR GRAFT 07/09/2012 414.00 CORONARY ATHEROSCLEROSIS OF UNSPECIFIED TYPE OF VESSEL [place] OR GRAFT 07/09/2012 414.00 CORONARY ATHEROSCLEROSIS OF UNSPECIFIED TYPE OF VESSEL [place] OR GRAFT 07/09/2012 414.00 CORONARY ATHEROSCLEROSIS OF UNSPECIFIED TYPE OF VESSEL [place] OR GRAFT 07/09/2012 ANTONIO GONZALEZ DO 414.00 CORONARY ATHEROSCLEROSIS OF UNSPECIFIED TYPE OF VESSEL [place] OR GRAFT 07/09/2012 JACE DOMÍNGUEZ, BISI 414.00 CORONARY ATHEROSCLEROSIS OF UNSPECIFIED TYPE OF VESSEL [place] OR GRAFT 07/09/2012 MARIBEL GARY APRN 414.00 CORONARY ATHEROSCLEROSIS OF UNSPECIFIED TYPE OF VESSEL [place] OR GRAFT 07/09/2012 CARLOS BENSON ANTONIO K 414.00 CORONARY ATHEROSCLEROSIS OF UNSPECIFIED TYPE OF VESSEL [place] OR GRAFT 07/09/2012 MARIBEL GARY APRN 414.00 CORONARY ATHEROSCLEROSIS OF UNSPECIFIED TYPE OF VESSEL [place] OR GRAFT 07/09/2012 GONZALEZ DO ANTONIO K 414.00 CORONARY ATHEROSCLEROSIS OF UNSPECIFIED TYPE OF VESSEL [place] OR GRAFT 07/09/2012 GONZALEZ DO ANTONIO K 414.00 CORONARY ATHEROSCLEROSIS OF UNSPECIFIED TYPE OF VESSEL [place] OR GRAFT 07/09/2012 MARIBEL GARY APRN 414.00 CORONARY ATHEROSCLEROSIS OF UNSPECIFIED TYPE OF VESSEL [place] OR GRAFT 07/09/2012 MARIBEL GARY APRN 414.00 CORONARY ATHEROSCLEROSIS OF UNSPECIFIED TYPE OF VESSEL [place] OR GRAFT 07/09/2012 CARLOS BENSON ANTONIO K 414.00 CORONARY ATHEROSCLEROSIS OF UNSPECIFIED TYPE OF VESSEL [place] OR GRAFT 07/09/2012 LIZZY GONZALEZ DOA K 414.00 CORONARY ATHEROSCLEROSIS OF UNSPECIFIED TYPE OF VESSEL [place] OR GRAFT 07/09/2012 BISI MCCORMICK MD 414.00 CORONARY ATHEROSCLEROSIS OF UNSPECIFIED TYPE OF VESSEL [place] OR GRAFT 07/09/2012 MARIBEL GARY APRN 414.00 CORONARY ATHEROSCLEROSIS OF UNSPECIFIED TYPE OF VESSEL [place] OR GRAFT 07/29/2012 796.2 ELEVATED BLOOD PRESSURE [...] PRESSURE READING WITHOUT DIAGNOSIS OF HYPERTENSION 07/29/2012 CARLOS BENSON ANTONIO K 796.2 ELEVATED BLOOD PRESSURE READING WITHOUT DIAGNOSIS OF HYPERTENSION 07/29/2012 BISI MCCORMICK MD 796.2 ELEVATED BLOOD PRESSURE READING WITHOUT DIAGNOSIS [...] PRESSURE READING WITHOUT DIAGNOSIS OF HYPERTENSION 07/29/2012 EATON BISI SANTOSSON L 796.2 ELEVATED BLOOD PRESSURE READING WITHOUT DIAGNOSIS OF HYPERTENSION 07/29/2012 EATON MARIBEL SANTOS L 796.2 ELEVATED BLOOD PRESSURE READING WITHOUT DIAGNOSIS OF HYPERTENSION 07/29/2012 GONZALEZ DO ANTONIO K 796.2 ELEVATED BLOOD PRESSURE READING WITHOUT DIAGNOSIS OF HYPERTENSION 07/29/2012 GONZALEZ DO ANTONIO K 796.2 ELEVATED BLOOD PRESSURE READING WITHOUT DIAGNOSIS OF HYPERTENSION 07/29/2012 BISI MCCORMICK MD 796.2 ELEVATED BLOOD PRESSURE READING WITHOUT DIAGNOSIS [...] LIZZY BENSONA K 787.91 diarrhea 08/18/2012 BISI MCCORMICK MD 787.91 diarrhea 08/18/2012 MARIBEL GARY APRN L 787.91 diarrhea 08/18/2012 GONZALEZ ANTONIO BENSON K 787.91 diarrhea 08/18/2012 EATON 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, MARIBEL L 787.91 diarrhea 08/18/2012 GONZALEZ DO, ANTONIO K 787.91 diarrhea 08/18/2012 GONZALEZ DO, ANTONIO K 787.91 diarrhea 08/18/2012 EATON 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, MARIBEL L 787.91 diarrhea 08/18/2012 EATON 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, MARIBEL L 787.91 diarrhea 08/18/2012 GONZALEZ DO, ANTONIO K 787.91 diarrhea 08/18/2012 GONZALEZ DO, ANTONIO K 787.91 diarrhea 08/18/2012 BISI MCCORMICK MD 787.91 diarrhea 08/18/2012 EATON 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, MARIBEL L 787.91 diarrhea 09/30/2012 272.4 HYPERLIPIDEMIA 09/30/2012 272.4 HYPERLIPIDEMIA 09/30/2012 272.4 HYPERLIPIDEMIA 09/30/2012 272.4 HYPERLIPIDEMIA 09/30/2012 MAXX JIMENEZ 272.4 HYPERLIPIDEMIA 09/30/2012 272.4 HYPERLIPIDEMIA 09/30/2012 EATON 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, MARIBEL L 272.4 HYPERLIPIDEMIA 09/30/2012 272.4 HYPERLIPIDEMIA 09/30/2012 272.4 HYPERLIPIDEMIA 09/30/2012 272.4 HYPERLIPIDEMIA 09/30/2012 GONZALEZ DO, ANTONIO K 272.4 HYPERLIPIDEMIA 09/30/2012 JACE DOMÍNGUEZ, BISI 272.4 HYPERLIPIDEMIA 09/30/2012 EATON 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, MARIBEL L 272.4 HYPERLIPIDEMIA 09/30/2012 GNOZALEZ DO, ANTONIO K 272.4 HYPERLIPIDEMIA 09/30/2012 EATON 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, MARIBEL L 272.4 HYPERLIPIDEMIA 09/30/2012 GONZALEZ DO, ANTONIO K 272.4 HYPERLIPIDEMIA 09/30/2012 GONZALEZ DO, ANTONIO K 272.4 HYPERLIPIDEMIA 09/30/2012 EATON 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, MARIBEL L 272.4 HYPERLIPIDEMIA 09/30/2012 EATON 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, MARIBEL L 272.4 HYPERLIPIDEMIA 09/30/2012 GONZALEZ DO, ANTONIO K 272.4 HYPERLIPIDEMIA 09/30/2012 GONZALEZ DO, ANTONIO K 272.4 HYPERLIPIDEMIA 09/30/2012 JACE DOMÍNGUEZ, ALI 272.4 HYPERLIPIDEMIA 09/30/2012 EATON 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, MARIBEL L 272.4 HYPERLIPIDEMIA 11/23/2012 461.9 SINUSITIS ACUTE 11/23/2012 790.6 Liver Function Test, Abnormal 11/23/2012 BAMAXX SWEENEY 461.9 SINUSITIS ACUTE 11/23/2012 TIFFANIERMAXX 790.6 Liver Function Test, Abnormal 11/23/2012 461.9 SINUSITIS ACUTE 11/23/2012 790.6 Liver Function Test, Abnormal 11/23/2012 EATON 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BISI DelgadilloSON L 461.9 SINUSITIS ACUTE 11/23/2012 EATON 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, MARIBEL L 790.6 Liver Function Test, Abnormal 11/23/2012 461.9 SINUSITIS ACUTE 11/23/2012 790.6 Liver Function Test, Abnormal 11/23/2012 461.9 SINUSITIS ACUTE 11/23/2012 790.6 Liver Function Test, Abnormal 11/23/2012 461.9 SINUSITIS ACUTE 11/23/2012 790.6 Liver Function Test, Abnormal 11/23/2012 GONZALEZ DO, ANTONIO K 461.9 SINUSITIS ACUTE 11/23/2012 GONZALEZ DO, ANTONIO K 790.6 Liver Function Test, Abnormal 11/23/2012 BISI MCCORMICK MD 461.9 SINUSITIS ACUTE 11/23/2012 BISI MCCORMICK MD 790.6 Liver Function Test, Abnormal 11/23/2012 EATON 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, MARIBEL L 461.9 SINUSITIS ACUTE 11/23/2012 EATON 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, MARIBEL L 790.6 Liver Function Test, Abnormal 11/23/2012 GONZALEZ DO, ANTONIO K 461.9 SINUSITIS ACUTE 11/23/2012 GONZALEZ DO, ANTONIO K 790.6 Liver Function Test, Abnormal 11/23/2012 EATON 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, MARIBEL L 461.9 SINUSITIS ACUTE 11/23/2012 EATON 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, MARIBEL L 790.6 Liver Function Test, Abnormal 11/23/2012 GONZALEZ DO, ANTONIO K 461.9 SINUSITIS ACUTE 11/23/2012 GONZALEZ DO, ANTONIO K 790.6 Liver Function Test, Abnormal 11/23/2012 GONZALEZ DO, ANTONIO K 461.9 SINUSITIS ACUTE 11/23/2012 GONZALEZ DO, ANTONIO K 790.6 Liver Function Test, Abnormal 11/23/2012 EATON 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, MARIBEL L 461.9 SINUSITIS ACUTE 11/23/2012 EATON 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, MARIBEL L 790.6 Liver Function Test, Abnormal 11/23/2012 EATON 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, MARIBEL L 461.9 SINUSITIS ACUTE 11/23/2012 EATON 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, MARIBEL L 790.6 Liver Function Test, Abnormal 11/23/2012 GONZALEZ DO, ANTONIO K 461.9 SINUSITIS ACUTE 11/23/2012 GONZALEZ DO, ANTONIO K 790.6 Liver Function Test, Abnormal 11/23/2012 GONZALEZ DO, ANTONIO K 461.9 SINUSITIS ACUTE 11/23/2012 GONZALEZ DO, ANTONIO K 790.6 Liver Function Test, Abnormal 11/23/2012 BISI MCCORMICK MD 461.9 SINUSITIS ACUTE 11/23/2012 BISI MCCORMICK MD 790.6 Liver Function Test, Abnormal 01/13/2013 MARIBEL GARY APRN L 481 PNEUMOCOCCAL PNEUMONIA [STREPTOCOCCUS PNEUMONIAE PNEUMONIA] 01/13/2013 481 PNEUMOCOCCAL PNEUMONIA [STREPTOCOCCUS PNEUMONIAE PNEUMONIA] 01/13/2013 481 PNEUMOCOCCAL PNEUMONIA [STREPTOCOCCUS PNEUMONIAE PNEUMONIA] 01/13/2013 481 PNEUMOCOCCAL PNEUMONIA [STREPTOCOCCUS PNEUMONIAE PNEUMONIA] 01/13/2013 GONZALEZ DO, ANTONIO K 481 PNEUMOCOCCAL PNEUMONIA [STREPTOCOCCUS PNEUMONIAE PNEUMONIA] 01/13/2013 BISI MCCORMICK MD 481 PNEUMOCOCCAL PNEUMONIA [STREPTOCOCCUS PNEUMONIAE PNEUMONIA] [...] PNEUMOCOCCAL PNEUMONIA [STREPTOCOCCUS PNEUMONIAE PNEUMONIA] 01/13/2013 BISI MCCORMICK MD 481 PNEUMOCOCCAL PNEUMONIA [STREPTOCOCCUS PNEUMONIAE PNEUMONIA] [...] ABDOMINAL PAIN OTHER SPECIFIED SITE 02/18/2013 BISI MCCORMICK MD 682.0 CELLULITIS AND ABSCESS OF FACE 02/18/2013 BISI MCCORMICK MD 789.09 ABDOMINAL PAIN OTHER SPECIFIED SITE 02/18/2013 EATON 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 MARIBEL L 682.0 CELLULITIS AND ABSCESS OF FACE 02/18/2013 EATON 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, MARIBEL L 789.09 ABDOMINAL PAIN OTHER SPECIFIED SITE 02/18/2013 GONZALEZ DO, ANTONIO K 682.0 CELLULITIS AND ABSCESS OF FACE 02/18/2013 GONZALEZ DO, ANTONIO K 789.09 ABDOMINAL PAIN OTHER SPECIFIED SITE 02/18/2013 EATON 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 MARIBEL L 682.0 CELLULITIS AND ABSCESS OF FACE 02/18/2013 EATON 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, MARIBEL L 789.09 ABDOMINAL PAIN OTHER SPECIFIED SITE 02/18/2013 GONZALEZ DO, ANTONIO K 682.0 CELLULITIS AND ABSCESS OF FACE 02/18/2013 GONZALEZ DO, ANTONIO K 789.09 ABDOMINAL PAIN OTHER SPECIFIED SITE 02/18/2013 GONZALEZ DO, ANTONIO K 682.0 CELLULITIS AND ABSCESS OF FACE 02/18/2013 GONZALEZ DO, ANTONIO K 789.09 ABDOMINAL PAIN OTHER SPECIFIED SITE 02/18/2013 EATON 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, MARIBEL L 682.0 CELLULITIS AND ABSCESS OF FACE 02/18/2013 EATON 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, MARIBEL L 789.09 ABDOMINAL PAIN OTHER SPECIFIED SITE 02/18/2013 EATON 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, MARIBEL L 682.0 CELLULITIS AND ABSCESS OF FACE 02/18/2013 EATON 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, MARIBEL L 789.09 ABDOMINAL PAIN OTHER SPECIFIED SITE 02/18/2013 GONZALEZ DO, ANTONIO K 682.0 CELLULITIS AND ABSCESS OF FACE 02/18/2013 GONZALEZ DO, ANTONIO K 789.09 ABDOMINAL PAIN OTHER SPECIFIED SITE 02/18/2013 GONZALEZ DO, ANTONIO K 682.0 CELLULITIS AND ABSCESS OF FACE 02/18/2013 GONZALEZ DO, ANTONIO K 789.09 ABDOMINAL PAIN OTHER SPECIFIED SITE 02/18/2013 BISI MCCORMICK MD 682.0 CELLULITIS AND ABSCESS OF FACE 02/18/2013 JACE DOMÍNGUEZ, BISI 789.09 ABDOMINAL PAIN OTHER SPECIFIED SITE 03/01/2013 NODX NO DIAGNOSIS 03/01/2013 NODX NO DIAGNOSIS 03/01/2013 GONZALEZ DO, ANTONIO K NODX NO DIAGNOSIS 03/01/2013 JACE DOMÍNGUEZ, BISI NODX NO DIAGNOSIS 03/01/2013 ABDIRAHMAN 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, MARIBEL Govea NODX NO DIAGNOSIS 03/01/2013 GONZALEZ DO, ANTONIO K NODX NO DIAGNOSIS 03/01/2013 EATJACKIE 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, MARIBEL L NODX NO DIAGNOSIS 03/01/2013 GONZALEZ DO, ANTONIO K NODX NO DIAGNOSIS 03/01/2013 GONZALEZ DO, ANTOINO K NODX NO DIAGNOSIS 03/01/2013 EATJACKIE 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, MARIBEL L NODX NO DIAGNOSIS 03/01/2013 EATON 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MARIBEL Delgadillo L NODX NO DIAGNOSIS 03/01/2013 GONZALEZ DO, ANTONIO K NODX NO DIAGNOSIS 03/01/2013 GONZALEZ DO, ANTONIO K NODX NO DIAGNOSIS 03/01/2013 JACE DOMÍNGUEZ, BISI NODX NO DIAGNOSIS 05/18/2014 GONZALEZ DO, ANTONIO K 401.9 HYPERTENSION, UNSPECIFIED ESSENTIAL 05/18/2014 GONZALEZ DO, ANTONIO K 401.9 HYPERTENSION, UNSPECIFIED ESSENTIAL 05/18/2014 EATMARIBEL MEJIA APRN L 401.9 HYPERTENSION, UNSPECIFIED ESSENTIAL 05/18/2014 MARIBEL [...] 789.01 ABDOMINAL PAIN RIGHT UPPER QUADRANT 07/07/2014 EATMARIBEL MEJIA APRN 553.20 UNSPECIFIED VENTRAL HERNIA WITHOUT OBSTRUCTION OR GANGRENE 07/07/2014 MARIBEL GARY APRN 789.01 ABDOMINAL PAIN RIGHT UPPER QUADRANT 07/07/2014 EATMARIBEL MEJIA APRN 553.20 UNSPECIFIED VENTRAL HERNIA WITHOUT OBSTRUCTION OR GANGRENE 07/07/2014 EATMARIBEL MEJIA APRN 789.01 ABDOMINAL PAIN RIGHT UPPER QUADRANT 07/07/2014 CARLOS BENSONANTONIO K 553.20 UNSPECIFIED VENTRAL HERNIA WITHOUT OBSTRUCTION OR GANGRENE 07/07/2014 CARLOS BENSONANTONIO K 789.01 ABDOMINAL PAIN RIGHT UPPER QUADRANT 07/07/2014 CARLOS BENSONANTONIO K 553.20 UNSPECIFIED VENTRAL HERNIA WITHOUT OBSTRUCTION OR GANGRENE 07/07/2014 CARLOS BENSONANTONIO 789.01 ABDOMINAL PAIN RIGHT UPPER QUADRANT 07/07/2014 BISI MCCORMICK MD 553.20 UNSPECIFIED VENTRAL HERNIA WITHOUT OBSTRUCTION OR GANGRENE 07/07/2014 BISI MCCORMICK MD 789.01 ABDOMINAL PAIN RIGHT UPPER QUADRANT 07/28/2014 [facility] 250.00 DIAB ANA WO COMPL, TYPE II OR UNSPEC TY 07/28/2014 [facility] 553.20 VENTRAL HERNIA NOS 07/28/2014 [facility] 574.10 CHOLELITH W CHOLECYS NEC 11/12/2014 MARIBEL GARY Ot 553.20 11/12/2014 MARIBEL GARY Ot 574.20 11/12/2014 [facility] 553.20 11/12/2014 [facility] Ot 574.20 11/12/2014 [facility] V72.63 11/12/2014 [facility] V72.81 11/12/2014 [facility] V74.8 11/23/2014 ANTONIO GONZALEZ DO 443.9 PERIPHERAL VASCULAR DISEASE UNSPECIFIED 11/23/2014 ANTONIO GONZALEZ DO 443.9 PERIPHERAL VASCULAR DISEASE UNSPECIFIED 11/23/2014 BISI MCCORMICK MD 443.9 PERIPHERAL VASCULAR DISEASE UNSPECIFIED 11/28/2014 MORRIS HERRERA SENIOR SPECIALIST Ot 272.4 11/30/2014 RISHABH SAMUEL DO Ot [...] FACP CCDS Ot 496 12/05/2014 MORRIS HERRERA SENIOR SPECIALIST Ot 272.4 12/06/2014 JACE DOMÍNGUEZ FACC, ALI FACP CCDS Ot 414.00 12/06/2014 JACE DOMÍNGUEZ FACC, ALI FACP CCDS Ot 443.9 12/06/2014 JACE CORTEZC, ALI FACP CCDS Ot 496 12/07/2014 ANTONIO GONZALEZ DO K 726.60 ENTHESOPATHY OF KNEE UNSPECIFIED 12/07/2014 ANTONIO GONZALEZ DO K 726.60 ENTHESOPATHY OF KNEE UNSPECIFIED 12/07/2014 BISI MCCORMICK MD 726.60 ENTHESOPATHY OF KNEE UNSPECIFIED 12/07/2014 JACE DOMÍNGUEZ FACC, ALI FACP CCDS Ot 414.00 12/07/2014 JACE CORTEZC, ALI FACP CCDS Ot 443.9 12/07/2014 JACE CORTEZC, ALI FACP CCDS Ot 496 12/07/2014 JACE CORTEZC, ALI FACP CCDS Ot 414.00 12/07/2014 JACE CORTEZC, ALI FACP CCDS Ot 443.9 12/07/2014 JACE CORTEZC, ALI FACP CCDS Ot 496 12/14/2014 BISI MCCORMICK MD 274.00 GOUTY ARTHROPATHY UNSPECIFIED 12/21/2014 RISHABH SAMUEL DO Ot 401.9 12/21/2014 RISHABH SAMUEL DO Ot 429.3 12/21/2014 RISHABH SAMUEL DO Ot 786.09 12/21/2014 RISHABH SAMUEL DO Ot 793.11 03/25/2015 JACE DOMÍNGUEZ [facility], [facility] CCDS Ot 414.00 03/25/2015 JACE DOMÍNGUEZ [facility], [facility] CCD[facility] Ot 443.9 03/25/2015 JACE DOMÍNGUEZ [facility], [facility] CCDS Ot 496 04/06/2015 MARIBEL GARY SENIOR SPECIALIST Ot 724.3 04/21/2015 MARIBEL GARY SENIOR SPECIALIST Ot 721.3 01/13/2016 NORIS NEVES MD Ot [...] MD Ot I25.10 ATHSCL HEART DISEASE OF [place] CORONARY 01/13/2016 NORIS NEVES MD Ot I48.91 UNSPECIFIED ATRIAL FIBRILLATION 01/13/2016 NORIS NEVES MD Ot J18.9 PNEUMONIA, UNSPECIFIED ORGANISM 01/13/2016 NORIS NEVES MD Ot J44.9 CHRONIC OBSTRUCTIVE PULMONARY DISEASE, U 01/13/2016 NORIS NEVES MD Ot J67.9 01/13/2016 NORIS NEVES MD Ot Z95.5 PRESENCE OF CORONARY ANGIOPLASTY IMPLANT 01/16/[address] APRN Ot J44.9 01/16/[address] APRN Ot J84.9 02/12/2016 GONZALEZ DO ANTONIO K Ot A41.9 SEPSIS, UNSPECIFIED ORGANISM 02/12/2016 GONZALEZ DO, ANTONIO K Ot D64.9 ANEMIA, UNSPECIFIED 02/12/2016 GONZALEZ DO, ANTONIO K Ot E11.9 TYPE 2 DIABETES MELLITUS WITHOUT COMPLIC 02/12/2016 GONZALEZ DO, ANTONIO K Ot E78.5 HYPERLIPIDEMIA, UNSPECIFIED 02/12/2016 GONZALEZ DO, ANTONIO K Ot E83.42 HYPOMAGNESEMIA 02/12/2016 ANTONIO GONZALEZ DO K Ot E87.6 HYPOKALEMIA 02/12/2016 LIZZY GONZALEZ DOA K Ot G47.33 OBSTRUCTIVE SLEEP APNEA (ADULT) (PEDIATR 02/12/2016 LIZZY GONZALEZ DOA K Ot I10 ESSENTIAL (PRIMARY) HYPERTENSION 02/12/2016 LIZZY GONZALEZ DOA K Ot I25.10 ATHSCL HEART DISEASE OF [place] CORONARY 02/12/2016 LIZZY GONZALEZ DOA K Ot I48.0 PAROXYSMAL ATRIAL FIBRILLATION 02/12/2016 CARLOS BENSON ANTONIO K Ot I48.91 UNSPECIFIED ATRIAL FIBRILLATION 02/12/2016 LIZZY GONZALEZ DOA K Ot J18.9 PNEUMONIA, UNSPECIFIED ORGANISM 02/12/2016 LIZZY GONZALEZ DOA K Ot J44.9 CHRONIC OBSTRUCTIVE PULMONARY DISEASE, U 02/12/2016 ANTONIO GONZALEZ DO K Ot [id number].9XX0 CHRONIC GOUT, UNSPECIFIED, WITHOUT TOPHU 02/12/2016 LIZZY GONZALEZ DOA K Ot Z95.5 PRESENCE OF CORONARY ANGIOPLASTY IMPLANT 04/03/2016 JACE CORTEZC, ALI FACP CCDS Ot 414.00 CORON ATHEROSCLER [...] CHR AIRWAY OBSTRUCT NEC 04/03/2016 MARIBEL GARY SENIOR SPECIALIST Ot 724.3 SCIATICA 04/03/2016 MARIBEL GARY SENIOR SPECIALIST Ot 721.3 LUMBOSACRAL SPONDYLOSIS 04/03/[address] APRN Ot J44.9 CHRONIC OBSTRUCTIVE PULMONARY DISEASE, U 04/03/[address] APRN Ot J84.9 INTERSTITIAL PULMONARY DISEASE, UNSPECIF 04/24/[address] APRN Ot G47.33 OBSTRUCTIVE SLEEP APNEA (ADULT) (PEDIATR 04/24/2016 ARIANA, HORACIO E 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 Ot J18.9 PNEUMONIA, UNSPECIFIED ORGANISM 04/24/[address] 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 Ot J84.9 INTERSTITIAL PULMONARY DISEASE, UNSPECIF 04/24/[address] 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 Ot R06.02 SHORTNESS OF BREATH 04/24/[address] 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 Ot R91.1 SOLITARY PULMONARY NODULE 04/25/[address] 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 Ot J44.9 CHRONIC OBSTRUCTIVE PULMONARY DISEASE, U 04/25/[address] 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 Ot J84.9 INTERSTITIAL PULMONARY DISEASE, UNSPECIF 04/26/[address] 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 Ot G47.33 OBSTRUCTIVE SLEEP APNEA (ADULT) (PEDIATR 04/26/[address] 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 Ot J18.9 PNEUMONIA, UNSPECIFIED ORGANISM 04/26/[address] 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 Ot J84.9 INTERSTITIAL PULMONARY DISEASE, UNSPECIF 04/26/[address] 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 Ot R06.02 SHORTNESS OF BREATH 04/26/[address] 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 Ot R91.1 SOLITARY PULMONARY NODULE 05/16/[address] 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 Ot G47.33 OBSTRUCTIVE SLEEP APNEA (ADULT) (PEDIATR 05/16/[address] 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 Ot J18.9 PNEUMONIA, UNSPECIFIED ORGANISM 05/16/[address] 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 Ot J84.9 INTERSTITIAL PULMONARY DISEASE, UNSPECIF 05/16/[address] 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 Ot R06.02 SHORTNESS OF BREATH 05/16/[address] 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 Ot R91.1 SOLITARY PULMONARY NODULE 07/29/2016 JACE DOMÍNGUEZ FACC, ALI FACP CCDS Ot 414.00 CORON ATHEROSCLER NOS TYPE VESSEL, NATIV 07/29/2016 JACE DOMÍNGUEZ FACC, ALI FACP CCDS Ot 443.9 PERIPH VASCULAR DIS NOS 07/29/2016 JACE DOMÍNGUEZ FACC, ALI FACP CCDS Ot 496 CHR AIRWAY OBSTRUCT NEC 07/29/2016 JACE DOMÍNGUEZ FACC, ALI FACP CCDS Ot 414.00 CORON ATHEROSCLER NOS TYPE VESSEL, NATIV 07/29/2016 JACE DOMÍNGUEZ FACC, ALI FACP CCDS Ot 443.9 PERIPH VASCULAR DIS NOS 07/29/2016 JACE DOMÍNGUEZ FACC, BISI CORTEZP CCDS Ot 496 CHR AIRWAY OBSTRUCT NEC 07/29/2016 MARIBEL GARY SENIOR SPECIALIST Ot 724.3 SCIATICA 07/29/2016 PHYLLISJACKIE MARIBEL L SENIOR SPECIALIST Ot 721.3 LUMBOSACRAL SPONDYLOSIS 07/29/[address] APRN Ot J44.9 CHRONIC OBSTRUCTIVE PULMONARY DISEASE, U 07/29/[address] 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 Ot J84.9 INTERSTITIAL PULMONARY DISEASE, UNSPECIF 07/29/[address] 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 Ot G47.33 OBSTRUCTIVE SLEEP APNEA (ADULT) (PEDIATR 07/29/[address] 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 Ot J18.9 PNEUMONIA, UNSPECIFIED ORGANISM 07/29/[address] 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 Ot J84.9 INTERSTITIAL PULMONARY DISEASE, UNSPECIF 07/29/[address] 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 Ot R06.02 SHORTNESS OF BREATH 07/29/[address] APRN Ot R91.1 SOLITARY PULMONARY NODULE 07/29/[address] 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 Ot J18.9 PNEUMONIA, UNSPECIFIED ORGANISM 07/31/[address] 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 Ot J18.9 PNEUMONIA, UNSPECIFIED ORGANISM 07/31/[address] 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 Ot J44.9 CHRONIC OBSTRUCTIVE PULMONARY DISEASE, U 07/31/[address] 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 Ot J84.9 INTERSTITIAL PULMONARY DISEASE, UNSPECIF 07/31/[address] 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 Ot R06.02 SHORTNESS OF BREATH 07/31/[address] 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 Ot R91.1 SOLITARY PULMONARY NODULE 08/02/2016 [...] CHR AIRWAY OBSTRUCT NEC 08/02/2016 MARIBEL GARY SENIOR SPECIALIST Ot 724.3 SCIATICA 08/02/2016 MARIBEL GARY SENIOR SPECIALIST Ot 721.3 LUMBOSACRAL SPONDYLOSIS 08/02/[address] 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 Ot J44.9 CHRONIC OBSTRUCTIVE PULMONARY DISEASE, U 08/02/[address] 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 Ot J84.9 INTERSTITIAL PULMONARY DISEASE, UNSPECIF 08/02/[address] 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 Ot G47.33 OBSTRUCTIVE SLEEP APNEA (ADULT) (PEDIATR 08/02/2016 ARIANAHORACIO MEJIA 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 Ot J18.9 PNEUMONIA, UNSPECIFIED ORGANISM 08/02/[address] 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 Ot J84.9 INTERSTITIAL PULMONARY DISEASE, UNSPECIF 08/02/[address] 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 Ot R06.02 SHORTNESS OF BREATH 08/02/[address] 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 Ot R91.1 SOLITARY PULMONARY NODULE 08/02/[address] 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 Ot J18.9 PNEUMONIA, UNSPECIFIED ORGANISM 08/02/[address] 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 Ot J44.9 CHRONIC OBSTRUCTIVE PULMONARY DISEASE, U 08/02/[address] 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 Ot J84.9 INTERSTITIAL PULMONARY DISEASE, UNSPECIF 08/02/[address] 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 Ot R06.02 SHORTNESS OF BREATH 08/02/[address] 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 Ot R91.1 SOLITARY PULMONARY NODULE 08/07/2016 JACE DOMÍNGUEZ FACC, ALI FACP CCDS Ot 414.00 CORON ATHEROSCLER NOS TYPE VESSEL, NATIV 08/07/2016 JACE DOMÍNGUEZ FACC, ALI FACP CCDS Ot 443.9 PERIPH VASCULAR DIS NOS 08/07/2016 JACE DOMÍNGUEZ FACC, ALI FACP CCDS Ot 496 CHR AIRWAY OBSTRUCT NEC 08/07/2016 JACE DOMÍNGUEZ FACC, ALI FACP CCDS Ot 414.00 CORON ATHEROSCLER NOS TYPE VESSEL, NATIV 08/07/2016 JACE DOMÍNGUEZ FACC, ALI FACP CCDS Ot 443.9 PERIPH VASCULAR DIS NOS 08/07/2016 JACE DOMÍNGUEZ FACC, ALI FACP CCDS Ot 496 CHR AIRWAY OBSTRUCT NEC 08/07/2016 MARIBEL GARY SENIOR SPECIALIST Ot 724.3 SCIATICA 08/07/2016 MARIBEL GARY SENIOR SPECIALIST Ot 721.3 LUMBOSACRAL SPONDYLOSIS 08/07/[address] 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 Ot J44.9 CHRONIC OBSTRUCTIVE PULMONARY DISEASE, U 08/07/[address] 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 Ot J84.9 INTERSTITIAL PULMONARY DISEASE, UNSPECIF 08/07/[address] 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 Ot G47.33 OBSTRUCTIVE SLEEP APNEA (ADULT) (PEDIATR 08/07/[address] 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 Ot J18.9 PNEUMONIA, UNSPECIFIED ORGANISM 08/07/[address] 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 Ot J84.9 INTERSTITIAL PULMONARY DISEASE, UNSPECIF 08/07/[address] 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 Ot R06.02 SHORTNESS OF BREATH 08/07/[address] 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 Ot R91.1 SOLITARY PULMONARY NODULE 08/07/[address] 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 Ot J18.9 PNEUMONIA, UNSPECIFIED ORGANISM 08/07/[address] 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 Ot J44.9 CHRONIC OBSTRUCTIVE PULMONARY DISEASE, U 08/07/[address] 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 Ot J84.9 INTERSTITIAL PULMONARY DISEASE, UNSPECIF 08/07/[address] 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 Ot R06.02 SHORTNESS OF BREATH 08/07/[address] 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 Ot R91.1 SOLITARY PULMONARY NODULE 08/07/[address] 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 Ot G47.10 HYPERSOMNIA, UNSPECIFIED 08/07/[address] 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 Ot J43.8 OTHER EMPHYSEMA 08/07/[address] 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 Ot J84.9 INTERSTITIAL PULMONARY DISEASE, UNSPECIF 08/07/[address] 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 Ot R06.02 SHORTNESS OF BREATH 08/13/[address] 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 Ot G47.33 OBSTRUCTIVE SLEEP APNEA (ADULT) (PEDIATR 08/13/[address] 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 Ot J84.9 INTERSTITIAL PULMONARY DISEASE, UNSPECIF 08/13/[address] 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 Ot R06.02 SHORTNESS OF BREATH 08/13/[address] 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 Ot R91.1 SOLITARY PULMONARY NODULE 08/21/2016 HORACIO ALNE 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 Ot J18.9 PNEUMONIA, UNSPECIFIED ORGANISM 08/21/[address] 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 Ot J44.9 CHRONIC OBSTRUCTIVE PULMONARY DISEASE, U 08/21/[address] 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 Ot J84.9 INTERSTITIAL PULMONARY DISEASE, UNSPECIF 08/21/[address] 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 Ot R06.02 SHORTNESS OF BREATH 08/21/[address] 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 Ot R91.1 SOLITARY PULMONARY NODULE 08/23/[address] 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 Ot G47.10 HYPERSOMNIA, UNSPECIFIED 08/23/[address] 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 Ot J43.8 OTHER EMPHYSEMA 08/23/[address] 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 Ot J84.9 INTERSTITIAL PULMONARY DISEASE, UNSPECIF 08/23/[address] 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 Ot R06.02 SHORTNESS OF BREATH 09/10/2016 JACE DOMÍNGUEZ FACC, BISI FACP CCDS Ot E11.9 TYPE 2 DIABETES MELLITUS WITHOUT COMPLIC 09/10/2016 JACE DOMÍNGUEZ FACC, BISI FACP CCDS Ot G47.33 OBSTRUCTIVE SLEEP APNEA (ADULT) (PEDIATR 09/10/2016 JACE DOMÍNGUEZ FACC, BISI FACP CCDS Ot I25.10 ATHSCL HEART DISEASE OF [place] CORONARY 09/10/2016 JACE DOMÍNGUEZ FACC, BISI FACP CCDS Ot I48.0 PAROXYSMAL ATRIAL FIBRILLATION 09/10/2016 JACE DOMÍNGUEZ FACC, IBSI FACP CCDS Ot J44.9 CHRONIC OBSTRUCTIVE PULMONARY DISEASE, U 09/10/2016 BISI MCCORMICK MD, FACC FACP CCDS Ot M79.604 PAIN IN RIGHT LEG 09/10/2016 JACE DOMÍNGUEZ FACC, BISI FACP CCDS Ot M79.605 PAIN IN LEFT LEG 09/10/2016 BISI MCCORMICK MD, FACC FACP CCDS Ot Z79.01 INDUSTRY OPERATIONS INVESTIGATOR (CURRENT) USE OF ANTICOAGULANT 09/10/2016 BISI MCCORMICK MD, FACC FACP CCDS Ot Z79.899 OTHER INDUSTRY OPERATIONS INVESTIGATOR (CURRENT) DRUG THERAPY 09/10/2016 BISI MCCORMICK MD, FACC FACP CCDS Ot Z95.5 PRESENCE OF CORONARY ANGIOPLASTY IMPLANT 09/17/[address] 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 Ot G47.33 OBSTRUCTIVE SLEEP APNEA (ADULT) (PEDIATR 09/17/[address] 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 Ot J84.9 INTERSTITIAL PULMONARY DISEASE, UNSPECIF 09/17/[address] 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 Ot R06.02 SHORTNESS OF BREATH 09/17/[address] 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 Ot R91.1 SOLITARY PULMONARY NODULE 10/31/[address] 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 Ot G47.33 OBSTRUCTIVE SLEEP APNEA (ADULT) (PEDIATR 10/31/[address] 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 Ot J18.9 PNEUMONIA, UNSPECIFIED ORGANISM 10/31/[address] 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 Ot J84.9 INTERSTITIAL PULMONARY DISEASE, UNSPECIF 10/31/[address] 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 Ot R06.02 SHORTNESS OF BREATH 10/31/[address] 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 Ot R91.1 SOLITARY PULMONARY NODULE 10/31/[address] 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 Ot J18.9 PNEUMONIA, UNSPECIFIED ORGANISM 10/31/[address] 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 Ot J44.9 CHRONIC OBSTRUCTIVE PULMONARY DISEASE, U 10/31/[address] 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 Ot J84.9 INTERSTITIAL PULMONARY DISEASE, UNSPECIF 10/31/[address] 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 Ot R06.02 SHORTNESS OF BREATH 10/31/[address] 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 Ot R91.1 SOLITARY PULMONARY NODULE 10/31/[address] 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 Ot G47.10 HYPERSOMNIA, UNSPECIFIED 10/31/[address] 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 Ot J43.8 OTHER EMPHYSEMA 10/31/[address] 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 Ot J84.9 INTERSTITIAL PULMONARY DISEASE, UNSPECIF 10/31/2016 HORACIO ALNE 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 Ot R06.02 SHORTNESS OF BREATH 10/31/[address] 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 Ot G47.33 OBSTRUCTIVE SLEEP APNEA (ADULT) (PEDIATR 10/31/[address] 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 Ot J84.9 INTERSTITIAL PULMONARY DISEASE, UNSPECIF 10/31/[address] 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 Ot R06.02 SHORTNESS OF BREATH 10/31/[address] 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 Ot R91.1 SOLITARY PULMONARY NODULE [address] 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 Ot G47.33 OBSTRUCTIVE SLEEP APNEA (ADULT) (PEDIATR 2016 ARIANA, HORACIO E 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 Ot J84.9 INTERSTITIAL PULMONARY DISEASE, UNSPECIF 2016 ARIANA, HORACIO E 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 Ot R06.02 SHORTNESS OF BREATH 2016 ARIANA, HORACIO E 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 Ot R91.1 SOLITARY PULMONARY NODULE 11/11/2016 ARIANA, HORACIO E 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 Ot G47.33 OBSTRUCTIVE SLEEP APNEA (ADULT) (PEDIATR 11/11/2016 ARIANA, HORACIO E 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 Ot J84.9 INTERSTITIAL PULMONARY DISEASE, UNSPECIF 11/11/2016 ARIANA, HORACIO E 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 Ot R06.02 SHORTNESS OF BREATH 11/11/2016 ARIANA, HORACIO E 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 Ot R91.1 SOLITARY PULMONARY NODULE 11/14/2016 ARIANA, HORACIO E 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 Ot G47.33 OBSTRUCTIVE SLEEP APNEA (ADULT) (PEDIATR 11/14/2016 ARIANADAVIDHORACIO E 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 Ot J84.9 INTERSTITIAL PULMONARY DISEASE, UNSPECIF 11/14/2016 ARIANA, HORACIO E 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 Ot R06.02 SHORTNESS OF BREATH 11/14/2016 ARIANA, HORACIO E LIME SUPERVISOR Ot R91.1 SOLITARY PULMONARY NODULE 11/15/2016 ARIANA, HORACIO E LIME SUPERVISOR Ot G47.33 OBSTRUCTIVE SLEEP APNEA (ADULT) (PEDIATR 11/15/2016 ARIANA, HORACIO E LIME SUPERVISOR Ot J84.9 INTERSTITIAL PULMONARY DISEASE, UNSPECIF 11/15/2016 ARIANA, HORACIO E LIME SUPERVISOR Ot R06.02 SHORTNESS OF BREATH 11/15/2016 ARIANADAVIDHORACIO E LIME SUPERVISOR Ot R91.1 SOLITARY PULMONARY NODULE 02/12/[address] E LIME SUPERVISOR Ot G47.33 OBSTRUCTIVE SLEEP APNEA (ADULT) (PEDIATR 02/12/2017 ARIANADAVID MEJIAINE E LIME SUPERVISOR Ot J84.9 INTERSTITIAL PULMONARY DISEASE, UNSPECIF 02/12/2017 ARIANADAVID MEJIAINE E LIME SUPERVISOR Ot R06.02 SHORTNESS OF BREATH 02/12/2017 ARIANADAVID MEJIAINE E LIME SUPERVISOR Ot R91.1 SOLITARY PULMONARY NODULE 03/11/2017 ANA PAULA DOMÍNGUEZ, ALF Dixon Ot D64.9 ANEMIA, UNSPECIFIED 03/11/2017 ANA PAULA DOMÍNGUEZ, ALF Dixon Ot E11.9 TYPE 2 DIABETES MELLITUS WITHOUT COMPLIC 03/11/2017 ALF GOSS MD Ot E78.5 HYPERLIPIDEMIA, UNSPECIFIED 03/11/2017 ALF GOSS MD Ot E83.42 HYPOMAGNESEMIA 03/11/2017 ALF GOSS MD Ot F32.9 MAJOR DEPRESSIVE DISORDER, SINGLE EPISOD 03/11/2017 ALF GOSS MD Ot F41.9 ANXIETY DISORDER, UNSPECIFIED 03/11/2017 ALF GOSS MD Ot I10 ESSENTIAL (PRIMARY) HYPERTENSION 03/11/2017 ALF GOSS MD Ot I25.10 ATHSCL HEART DISEASE OF [place] CORONARY 03/11/2017 ALF GOSS MD Ot I48.0 PAROXYSMAL ATRIAL FIBRILLATION 03/11/2017 ALF GOSS MD Ot J18.9 PNEUMONIA, UNSPECIFIED ORGANISM 03/11/2017 ALF GOSS MD Ot J44.0 CHRONIC OBSTRUCTIVE PULMON DISEASE W ACU 03/11/2017 ALF GOSS MD Ot K21.9 GASTRO-ESOPHAGEAL REFLUX DISEASE WITHOUT 03/11/2017 ALF GOSS MD Ot R91.8 OTHER NONSPECIFIC ABNORMAL FINDING OF [place] 03/21/2017 MARIBEL GARY SENIOR SPECIALIST Ot 553.20 VENTRAL HERNIA NOS 03/21/2017 MARIBEL GARY SENIOR SPECIALIST Ot 574.20 CHOLELITHIASIS NOS 03/21/2017 LUISA SYED DO Ot 553.20 VENTRAL HERNIA NOS 03/21/2017 LUISA SYED DO Ot 574.20 CHOLELITHIASIS NOS 03/21/2017 LUISA SYED DO Ot V72.63 PRE-PROCEDURAL LABORATORY EXAMINATION 03/21/2017 LUISA SYED DO Ot V72.81 [id number] CARDIOVASCULAR 03/21/2017 LUISA SYED DO Ot V74.8 SCREEN-BACTERIAL DIS NEC 03/26/[address] APRN Ot G47.33 OBSTRUCTIVE SLEEP APNEA (ADULT) (PEDIATR 03/26/[address] APRN Ot J84.9 INTERSTITIAL [...] APRN Ot J84.9 INTERSTITIAL PULMONARY DISEASE, UNSPECIF 05/02/2017 AMELIE WEEKS APRN Ot A09 INFECTIOUS GASTROENTERITIS AND COLITIS, 05/02/2017 AMELIE WEEKS APRN Ot E11.9 TYPE 2 DIABETES MELLITUS WITHOUT COMPLIC 05/02/2017 AMELIE WEEKS APRN Ot E78.00 PURE HYPERCHOLESTEROLEMIA, UNSPECIFIED 05/02/2017 AMELIE WEEKS APRN Ot F32.9 MAJOR DEPRESSIVE DISORDER, SINGLE EPISOD 05/02/2017 AMELIE WEEKS APRN Ot F41.9 ANXIETY DISORDER, UNSPECIFIED 05/02/2017 AMELIE WEEKS APRN Ot G47.30 SLEEP APNEA, UNSPECIFIED 05/02/2017 AMELIE WEEKS APRN Ot I10 ESSENTIAL (PRIMARY) HYPERTENSION 05/02/2017 AMELIE WEEKS APRN Ot I25.10 ATHSCL HEART DISEASE OF [place] CORONARY 05/02/2017 AMELIE WEEKS APRN Ot I48.91 UNSPECIFIED ATRIAL FIBRILLATION 05/02/2017 AMELIE WEEKS APRN Ot K21.9 GASTRO-ESOPHAGEAL REFLUX DISEASE WITHOUT 05/02/2017 AMELIE WEEKS APRN Ot M10.9 GOUT, UNSPECIFIED 05/02/2017 AMELIE WEEKS APRN Ot M19.90 UNSPECIFIED OSTEOARTHRITIS, UNSPECIFIED 05/02/2017 AMELIE WEEKS APRN Ot R19.7 DIARRHEA, UNSPECIFIED 05/02/2017 AMELIE WEEKS APRN Ot S30.1XXA CONTUSION OF ABDOMINAL WALL, INITIAL ENC 05/02/2017 AMELIE WEEKS APRN Ot X58.XXXA EXPOSURE TO OTHER SPECIFIED FACTORS, INI 05/02/2017 AMELIE WEEKS APRN Ot Z77.22 CNTCT W AND EXPSR TO ENVIRON TOBACCO SMO 05/02/2017 AMELIE WEEKS APRN Ot Z79.84 RESIDENTIAL (CURRENT) USE OF ORAL HYPOGLYC 05/02/2017 AMELIE WEEKS APRN Ot Z86.010 PERSONAL HISTORY OF COLONIC POLYPS 05/02/2017 AMELIE WEEKS APRN Ot Z87.19 PERSONAL HISTORY OF OTHER DISEASES OF TH 05/02/2017 AMELIE WEEKS APRN Ot Z87.442 PERSONAL HISTORY OF URINARY CALCULI 05/02/2017 AMELIE WEEKS APRN Ot Z90.49 ACQUIRED ABSENCE OF OTHER SPECIFIED PART 05/02/2017 AMELIE WEEKS APRN Ot Z95.5 PRESENCE OF CORONARY ANGIOPLASTY IMPLANT 05/06/2017 AMELIE WEEKS APRN Ot A09 INFECTIOUS GASTROENTERITIS AND COLITIS, 05/06/2017 AMELIE WEEKS APRN Ot E11.9 TYPE 2 DIABETES MELLITUS WITHOUT COMPLIC 05/06/2017 AMELIE WEEKS APRN Ot E78.00 PURE HYPERCHOLESTEROLEMIA, UNSPECIFIED 05/06/2017 AMELIE WEEKS APRN Ot F32.9 MAJOR DEPRESSIVE DISORDER, SINGLE EPISOD 05/06/2017 AMELIE WEEKS APRN Ot F41.9 ANXIETY DISORDER, UNSPECIFIED 05/06/2017 AMELIE WEEKS APRN Ot G47.30 SLEEP APNEA, UNSPECIFIED 05/06/2017 AMELIE WEEKS APRN Ot I10 ESSENTIAL (PRIMARY) HYPERTENSION 05/06/2017 AMELIE WEEKS APRN Ot I25.10 ATHSCL HEART DISEASE OF [place] CORONARY 05/06/2017 AMELIE WEEKS APRN Ot I48.91 UNSPECIFIED ATRIAL FIBRILLATION 05/06/2017 AMELIE WEEKS APRN Ot K21.9 GASTRO-ESOPHAGEAL REFLUX DISEASE WITHOUT 05/06/2017 AMELIE WEEKS APRN Ot M10.9 GOUT, UNSPECIFIED 05/06/2017 WEEKS, PETER J LIME SUPERVISOR Ot M19.90 UNSPECIFIED OSTEOARTHRITIS, UNSPECIFIED 05/06/2017 AMELIE WEEKS APRN Ot R19.7 DIARRHEA, UNSPECIFIED 05/06/2017 AMELIE WEEKS APRN Ot S30.1XXA CONTUSION OF ABDOMINAL WALL, INITIAL ENC 05/06/2017 AMELIE WEEKS LIME SUPERVISOR Ot X58.XXXA EXPOSURE TO OTHER SPECIFIED FACTORS, INI 05/06/2017 AMELIE WEEKS APRN Ot Z77.22 CNTCT W AND EXPSR TO ENVIRON TOBACCO SMO 05/06/2017 AMELIE WEEKS APRN Ot Z79.84 RESIDENTIAL (CURRENT) USE OF ORAL HYPOGLYC 05/06/2017 AMELIE WEEKS APRN Ot Z86.010 PERSONAL HISTORY OF COLONIC POLYPS 05/06/2017 AMELIE WEEKS APRN Ot Z87.19 PERSONAL HISTORY OF OTHER DISEASES OF TH 05/06/2017 AMELIE WEEKS APRN Ot Z87.442 PERSONAL HISTORY OF URINARY CALCULI 05/06/2017 AMELIE WEEKS APRN Ot Z90.49 ACQUIRED ABSENCE OF OTHER SPECIFIED PART 05/06/2017 AMELIE WEEKS APRN Ot Z95.5 PRESENCE OF CORONARY ANGIOPLASTY IMPLANT 05/15/[address] APRN Ot J18.9 PNEUMONIA, UNSPECIFIED ORGANISM 05/15/[address] LIME SUPERVISOR Ot J43.8 OTHER EMPHYSEMA 05/15/[address] APRN Ot J84.9 INTERSTITIAL PULMONARY DISEASE, UNSPECIF 05/20/2017 ELEANOR DOMÍNGUEZ, CONRADO Edward Ot E11.9 TYPE 2 DIABETES MELLITUS WITHOUT COMPLIC 05/20/2017 ELEANOR DOMÍNGUEZ, CONRADO Edward Ot E78.00 PURE HYPERCHOLESTEROLEMIA, UNSPECIFIED 05/20/2017 CONRADO WEBSTER MD Ot E83.42 HYPOMAGNESEMIA 05/20/2017 CONRADO WEBSTER MD Ot F32.9 MAJOR DEPRESSIVE DISORDER, SINGLE EPISOD 05/20/2017 CONRADO WEBSTER MD Ot F41.9 ANXIETY DISORDER, UNSPECIFIED 05/20/2017 CONRADO WEBSTER MD Ot G47.30 SLEEP APNEA, UNSPECIFIED 05/20/2017 CONRADO WEBSTER MD Ot G89.29 OTHER CHRONIC PAIN 05/20/2017 CONRADO WEBSTER MD Ot I10 ESSENTIAL (PRIMARY) HYPERTENSION 05/20/2017 CONRADO WEBSTER MD Ot I25.10 ATHSCL HEART DISEASE OF [place] CORONARY 05/20/2017 CONRADO WEBSTER MD Ot I48.91 UNSPECIFIED ATRIAL FIBRILLATION 05/20/2017 CONRADO WEBSTER MD Ot M10.9 GOUT, UNSPECIFIED 05/20/2017 CONRADO WEBSTER MD Ot M19.90 UNSPECIFIED OSTEOARTHRITIS, UNSPECIFIED 05/20/2017 CONRADO WEBSTER MD Ot M47.9 SPONDYLOSIS, UNSPECIFIED 05/20/2017 CONRADO WEBSTER MD Ot M54.9 DORSALGIA, UNSPECIFIED 05/20/2017 CONRADO WEBSTER MD Ot R10.84 GENERALIZED ABDOMINAL PAIN 05/20/2017 CONRADO WEBSTER MD Ot R19.7 DIARRHEA, UNSPECIFIED 05/20/2017 CONRADO WEBSTER MD Ot Z79.84 RESIDENTIAL (CURRENT) USE OF ORAL HYPOGLYC 05/20/2017 CONRADO WEBSTER MD Ot Z87.19 PERSONAL HISTORY OF OTHER DISEASES OF TH 05/20/2017 CONRADO WEBSTER MD Ot Z87.442 PERSONAL HISTORY OF URINARY CALCULI 05/20/2017 CONRADO WEBSTER MD Ot Z90.49 ACQUIRED ABSENCE OF OTHER SPECIFIED PART 05/20/2017 CONRADO WEBSTER MD Ot Z95.5 PRESENCE OF CORONARY ANGIOPLASTY IMPLANT 07/02/2017 JACE DOMÍNGUEZ FACC, BISI FACP CCDS Ot E78.2 MIXED HYPERLIPIDEMIA 07/02/2017 BISI MCCORMICK MD, FACCP CCDS Ot G47.33 OBSTRUCTIVE SLEEP APNEA (ADULT) (PEDIATR 07/02/2017 BISI MCCORMICK MD, FACCP CCDS Ot I10 ESSENTIAL (PRIMARY) HYPERTENSION 07/02/2017 BISI MCCORMICK MD, FACCP CCDS Ot I25.10 ATHSCL HEART DISEASE OF [place] CORONARY 07/02/2017 BISI MCCORMICK MD, FACC FACP CCDS Ot J43.8 OTHER EMPHYSEMA 07/02/2017 JACE DOMÍNGUEZ FACC, BISI FACP CCDS Ot R06.02 SHORTNESS OF BREATH 07/25/2017 JACE DOMÍNGUEZ FACC, ALI FACP CCDS Ot E78.2 MIXED HYPERLIPIDEMIA 07/25/2017 JACE DOMÍNGUEZ FACC, ALI FACP CCDS Ot G47.33 OBSTRUCTIVE SLEEP APNEA (ADULT) (PEDIATR 07/25/2017 JACE DOMÍNGUEZ FACC, ALI FACP CCDS Ot I10 ESSENTIAL (PRIMARY) HYPERTENSION 07/25/2017 JACE DOMÍNGUEZ FACC, ALI FACP CCDS Ot I25.10 ATHSCL HEART DISEASE OF [place] CORONARY 07/25/2017 JACE DOMÍNGUEZ FACC, ALI FACP CCDS Ot J43.8 OTHER EMPHYSEMA 07/25/2017 JACE DOMÍNGUEZ FACC, ALI FACP CCDS Ot R06.02 SHORTNESS OF BREATH 07/31/[address] APRN Ot J18.9 PNEUMONIA, UNSPECIFIED ORGANISM 07/31/[address] APRN Ot J43.8 OTHER EMPHYSEMA 07/31/[address] APRN Ot J84.9 INTERSTITIAL PULMONARY DISEASE, UNSPECIF 07/31/2017 JACE DOMÍNGUEZ FACC, ALI FACP CCDS Ot E78.2 MIXED HYPERLIPIDEMIA 07/31/2017 JACE DOMÍNGUEZ FACC, ALI FACP CCDS Ot G47.33 OBSTRUCTIVE SLEEP APNEA (ADULT) (PEDIATR 07/31/2017 JACE DOMÍNGUEZ FACC, ALI FACP CCDS Ot I10 ESSENTIAL (PRIMARY) HYPERTENSION 07/31/2017 JACE DOMÍNGUEZ FACC, ALI FACP CCDS Ot I25.10 ATHSCL HEART DISEASE OF [place] CORONARY 07/31/2017 JACE DOMÍNGUEZ FACC, ALI FACP CCDS Ot J43.8 OTHER EMPHYSEMA 07/31/2017 JACE DOMÍNGUEZ FACC, ALI FACP CCDS Ot R06.02 SHORTNESS OF BREATH Procedures Code Description [place] [address] ROUTINE VENIPUNCTURE 06/18/2012 61359 BMP 06/18/20123797628 GFR CALC 06/18/2012 75390 A1C (IN-HOUSE) 09/30/2012 59942 HEMOCCULT 10/03/2012 23270 CULTURE STOOL 10/03/2012 90417 STOOL FOR O & P 10/03/2012 07978 CLOSTRIDIUM (C-DIFF) 10/03/2012 94577 ROUTINE VENIPUNCTURE 11/16/2012 22520 CMP 11/16/2012 49992 LIPID PANEL 11/16/2012 5467030 GFR CALC (RESULT ONLY) 11/16/2012 00635 A1C (RML) 11/17/2012 57298 OXIMETRY 01/13/2013 2000F BLOOD PRESSURE CHECK 03/01/2013 7048345 GFR CALC (RESULT ONLY) 11/12/2013 19843 CMP 11/12/2013 59000 LIPID PANEL 11/12/2013 60052 ROUTINE VENIPUNCTURE 11/15/2013 88943 A1C (IN-HOUSE) 11/23/2013 61016 A1C (IN-HOUSE) 04/06/2014 19401 NEBULIZER TREATMENT 04/06/2014 J7613 ALBUTEROL UNIT DOSE FORM INHALED 04/06/2014 87762 OXIMETRY 04/06/2014 Cardiolog Bisi Mccormick 04/06/2014 Pulmonary Rishabh Samuel 04/06/2014 44308 ROUTINE VENIPUNCTURE 04/26/2014 00487 MICRO ALBUMIN-IN HOUSE 04/26/2014 02320 CMP 04/26/2014 65390 LIPID PANEL 04/26/2014 0403348 GFR CALC (RESULT ONLY) 04/26/2014 87775 MAGNESIUM 04/26/2014 56719 TSH 04/26/2014 45962 US CAROTID DOPPLER 05/18/2014 52088 OXIMETRY 05/18/2014 09488 US GALLBLADDER ULTRASOUND 07/07/2014 General S Luisa Syed 07/07/2014 20068 A1C (IN-HOUSE) 07/07/2014 92579 ROUTINE VENIPUNCTURE 11/08/2014 51645 CMP 11/08/2014 50949 LIPID PANEL 11/08/2014 8257970 GFR CALC (RESULT ONLY) 11/08/2014 30986 NUCLEAR STRESS TESTING 12/01/2014 51717 ROUTINE VENIPUNCTURE 12/07/2014 62028 RENAL PROFILE 12/07/2014 36582 URIC ACID 12/07/2014 25156 CBC 12/07/2014 91492 RA FACTOR 12/07/2014 33262 DRAIN/INJECT JOINT/BURSA 12/07/2014 87223 ROUTINE VENIPUNCTURE 12/09/2014 58786 MICRO ALBUMIN-IN HOUSE 12/09/2014 04248 A1C (IN-HOUSE) 12/09/2014 33214 CMP 12/09/2014 81837 LIPID PANEL 12/09/2014 3429434 GFR CALC (RESULT ONLY) 12/09/2014 87124 HEPATITIS PROFILE 12/09/2014 19566 HEMAL 12/21/2014 32278 OXIMETRY 12/21/2014 Results Test Result Range Automated blood complete blood count (hemogram) panel - 09/10/16 10:05 Blood leukocytes automated count (number/volume) 9.2 10*3/uL 4.3-11.0 Blood erythrocytes automated count (number/volume) 4.64 10*6/uL 4.35-5.85 Venous blood hemoglobin measurement (mass/volume) 13.5 [...] Automated blood platelet mean volume measurement 9.7 [foz_us] 7.4-10.4 PT panel in platelet poor plasma [...] Serum or plasma sodium measurement (moles/volume) 137 mmol/L 135-145 Serum or plasma potassium measurement (moles/volume) 4.1 mmol/L 3.6-5.0 Serum or plasma chloride measurement (moles/volume) 101 mmol/L 98-107 Carbon dioxide 26 mmol/L 21-32 Serum or plasma anion gap determination (moles/volume) 10 mmol/L 5-14 Serum or plasma urea nitrogen measurement (mass/volume) 28 mg/dL 7-18 Serum or plasma creatinine measurement (mass/volume) 0.81 mg/dL 0.60-1.30 Serum or plasma urea nitrogen/creatinine mass ratio 35 NRG Serum or plasma creatinine measurement with calculation of estimated glomerular filtration rate > NRG Serum or plasma glucose measurement (mass/volume) 122 mg/dL 70-105 Serum or plasma calcium measurement (mass/volume) 10.0 mg/dL 8.5-10.1 Serum or plasma total bilirubin [...] Serum or plasma cholesterol measurement (mass/volume) 141 mg/dL < 200 Serum or plasma cholesterol in HDL measurement (mass/volume) 27 mg/ dL 40-60 Cholesterol in LDL [mass/volume] in serum or plasma by direct assay 81 mg/dL 1-129 Serum or plasma cholesterol in VLDL measurement (mass/volume) 44 mg/ dL 5-40 Methicillin resistant Staphylococcus aureus (MRSA) screening culture - 10:05 Methicillin resistant Staphylococcus aureus (MRSA) screening culture NEG [facility] Complete blood count (CBC) with automated white blood cell (WBC) differential - 03/09/17 13:20 Blood leukocytes automated count (number/volume) 17.0 10*3/uL 4.3-11.0 Blood erythrocytes automated count (number/volume) 4.61 10*6/uL 4.35-5.85 Venous blood hemoglobin measurement (mass/volume) 13.7 [...] Automated blood platelet mean volume measurement 9.7 [foz_us] 7.4-10.4 Automated blood neutrophils/100 leukocytes 79 % [...] - 03/09/17 13:20 Bacterial blood culture NG NRG Comprehensive metabolic panel - 03/09/17 14:04 Serum or plasma sodium measurement (moles/volume) 135 mmol/L 135-145 Serum or plasma potassium measurement (moles/volume) 3.4 mmol/L 3.6-5.0 Serum or plasma chloride measurement (moles/volume) 101 mmol/L 98-107 Carbon dioxide 22 mmol/L 21-32 Serum or plasma anion gap determination (moles/volume) 12 mmol/L 5-14 Serum or plasma urea nitrogen measurement (mass/volume) 19 mg/dL 7-18 Serum or plasma creatinine measurement (mass/volume) 0.68 mg/dL 0.60-1.30 Serum or plasma urea nitrogen/creatinine mass [...] or plasma troponin i.cardiac measurement (mass/volume) < ng/ mL <0.30 Myoglobin, serum - 03/09/17 14:04 Myoglobin, [...] 04:35 Blood leukocytes automated count (number/volume) 9.8 10*3/uL 4.3-11.0 Blood erythrocytes automated count (number/volume) 3.99 10*6/uL 4.35-5.85 Venous blood hemoglobin measurement (mass/volume) 12.0 [...] Automated blood platelet mean volume measurement 9.5 [foz_us] 7.4-10.4 Automated blood neutrophils/100 leukocytes 77 % [...] Serum or plasma sodium measurement (moles/volume) 141 mmol/L 135-145 Serum or plasma potassium measurement (moles/volume) 4.7 mmol/L 3.6-5.0 Serum or plasma chloride measurement (moles/volume) 110 mmol/L 98-107 Carbon dioxide 21 mmol/L 21-32 Serum or plasma anion gap determination (moles/volume) 10 mmol/L 5-14 Serum or plasma urea nitrogen measurement (mass/volume) 17 mg/dL 7-18 Serum or plasma creatinine measurement (mass/volume) 0.65 mg/dL 0.60-1.30 Serum or plasma urea nitrogen/creatinine mass [...] Serum or plasma cholesterol measurement (mass/volume) 88 mg/dL < 200 Serum or plasma cholesterol in HDL measurement (mass/volume) 23 mg/ dL 40-60 Cholesterol in LDL [mass/volume] in serum or plasma by direct assay 44 mg/dL 1-129 Serum or plasma cholesterol in VLDL measurement (mass/volume) 26 mg/ dL 5-40 Complete blood count (CBC) with automated white blood cell (WBC) differential - 05/02/17 13:48 Blood leukocytes automated count (number/volume) 13.4 10*3/uL 4.3-11.0 Blood erythrocytes automated count (number/volume) 5.03 10*6/uL 4.35-5.85 Venous blood hemoglobin measurement (mass/volume) 14.6 [...] Automated blood platelet mean volume measurement 9.8 [foz_us] 7.4-10.4 Automated blood neutrophils/100 leukocytes 71 % [...] Serum or plasma sodium measurement (moles/volume) 134 mmol/L 135-145 Serum or plasma potassium measurement (moles/volume) 4.1 mmol/L 3.6-5.0 Serum or plasma chloride measurement (moles/volume) 103 mmol/L 98-107 Carbon dioxide 21 mmol/L 21-32 Serum or plasma anion gap determination (moles/volume) 10 mmol/L 5-14 Serum or plasma urea nitrogen measurement (mass/volume) 20 mg/dL 7-18 Serum or plasma creatinine measurement (mass/volume) 0.76 mg/dL 0.60-1.30 Serum or plasma urea nitrogen/creatinine mass [...] plasma albumin measurement (mass/volume) 3.8 g/dL 3.2-4.5 Complete blood count (CBC) with automated white blood cell (WBC) differential - 05/20/17 20:02 Blood leukocytes automated count (number/volume) 6.9 10*3/uL 4.3-11.0 Blood erythrocytes automated count (number/volume) 4.29 10*6/uL 4.35-5.85 Venous blood hemoglobin measurement (mass/volume) 12.6 g/dL 13.3-17.7 Blood hematocrit (volume fraction) 39 % 40-54 Automated erythrocyte mean corpuscular volume 90 [foz_us] 80-99 Automated erythrocyte mean corpuscular hemoglobin (mass per erythrocyte) 29 pg 25-34 Automated erythrocyte mean corpuscular hemoglobin concentration measurement ( mass/volume) 33 g/dL 32-36 Automated erythrocyte distribution width ratio 14.6 % 10.0-14.5 Automated blood platelet count (count/volume) 166 10*3/uL 130-400 Automated blood platelet mean volume measurement 9.7 [foz_us] 7.4-10.4 Automated blood neutrophils/100 leukocytes 57 % 42-75 Automated blood lymphocytes/100 leukocytes 26 % 12-44 Blood monocytes/100 leukocytes 12 % 0-12 Automated blood eosinophils/100 leukocytes 5 % 0-10 Automated blood basophils/100 leukocytes 0 % 0-10 Blood neutrophils automated count (number/volume) 3.9 10*3 1.8-7.8 Blood lymphocytes automated count (number/volume) 1.8 10*3 1.0-4.0 Blood monocytes automated count (number/volume) 0.8 10*3 0.0-1.0 Automated eosinophil count 0.3 10*3/uL 0.0-0.3 Automated blood basophil count (count/volume) 0.0 10*3/uL 0.0-0.1 Comprehensive metabolic panel - 05/20/17 20:02 Serum or plasma sodium measurement (moles/volume) 139 mmol/L 135-145 Serum or plasma potassium measurement (moles/volume) 3.5 mmol/L 3.6-5.0 Serum or plasma chloride measurement (moles/volume) 105 mmol/L 98-107 Carbon dioxide 19 mmol/L 21-32 Serum or plasma anion gap determination (moles/volume) 15 mmol/L 5-14 Serum or plasma urea nitrogen measurement (mass/volume) 20 mg/dL 7-18 Serum or plasma creatinine measurement (mass/volume) 0.74 mg/dL 0.60-1.30 Serum or plasma urea nitrogen/creatinine mass ratio 27 NRG Serum or plasma creatinine measurement with calculation of estimated glomerular filtration rate > NRG Serum or plasma glucose measurement (mass/volume) 224 mg/dL 70-105 Serum or plasma calcium measurement (mass/volume) 9.0 mg/dL 8.5-10.1 Serum or plasma total bilirubin measurement (mass/volume) 0.3 mg/dL 0.1-1.0 Serum or plasma alkaline phosphatase measurement (enzymatic activity/volume) 47 U/L 40-136 Serum or plasma aspartate aminotransferase measurement (enzymatic activity/ volume) 22 U/L 5-34 Serum or plasma alanine aminotransferase measurement (enzymatic activity/volume ) 33 U/L 0-55 Serum or plasma protein measurement (mass/volume) 6.4 g/dL 6.4-8.2 Serum or plasma albumin measurement (mass/volume) 3.5 g/dL 3.2-4.5 Magnesium - 05/20/17 20:02 Magnesium 1.1 mg/dL 1.8-2.4 Lipase - 05/20/17 20:02 Lipase 53 U/L 8-78 Serum or plasma C reactive protein measurement (mass/volume) - 05/20/17 20:02 Serum or plasma C reactive protein measurement (mass/volume) 0.77 mg /dL 0.00-0.50 C DIFFICILE AG + TOXIN A/B. - 05/20/17 20:15 CALL POSITIVES (F1 HELP) CALLED TO MICHELLE/ED NURSE AT 1006/KD NR SPECIAL CONTACT SPECIAL CONTACT PRECAUTIONS NEEDED NRG RESULTS POSITIVE FOR ANTIGEN AND TOXIN A/B NRG Stool bacteria identification by culture - 05/20/17 20:15 Stool bacteria identification by culture N2 NRG Complete urinalysis with reflex to culture - 05/20/17 21:00 Urine color determination YELLOW NRG Urine clarity determination SLIGHTLY CLOUDY NRG Urine pH measurement by test strip 5 5-9 Specific gravity of urine by test strip 1.025 1.016- 1.022 Urine protein assay by test strip, semi-quantitative 1+ NEGATIVE Urine glucose detection by automated test strip NEGATIVE NEGATIVE Erythrocytes detection in urine sediment by light microscopy NEGATIVE NEGATIVE Urine ketones detection by automated test strip NEGATIVE NEGATIVE Urine nitrite detection by test strip NEGATIVE NEGATIVE Urine total bilirubin detection by test strip 1+ NEGATIVE Urine urobilinogen measurement by automated test strip (mass/volume) 4 mg/dL NORMAL Urine leukocyte esterase detection by dipstick 1+ NEGATIVE Automated urine sediment erythrocyte count by microscopy (number/high power field) NONE NRG Automated urine sediment leukocyte count by microscopy (number/high power field ) [HPF] NRG Bacteria detection in urine sediment by light microscopy NONE NRG Crystals detection in urine sediment by light microscopy PRESENT NRG Casts detection in urine sediment by light microscopy NONE NRG Mucus detection in urine sediment by light microscopy NEGATIVE NRG Complete urinalysis with reflex to culture NO NRG Calcium oxalate crystals detection in urine sediment by light microscopy LARGE NRG Encounters ACCT No. Visit Date/Time Discharge Status Pt. Type Provider Facility Loc./Unit Complaint [id number] 12/21/2014 08:18:00 12/21/2014 23:59:59 CLS Outpatient BISI MCCORMICK MD [id number] 12/09/2014 08:39:00 12/09/2014 23:59:59 CLS Outpatient ANTONIO GONZALEZ DO [id number] 12/07/2014 11:20:00 12/07/2014 23:59:59 CLS Outpatient ANTONIO GONZALEZ DO [id number] 11/23/2014 08:18:00 11/23/2014 23:59:59 CLS Outpatient BISI MCCORMICK MD [id number] 11/08/2014 08:22:00 11/08/2014 23:59:59 CLS Outpatient MARIBEL GARY APRN [id number] 07/07/2014 08:45:00 07/07/2014 23:59:59 CLS Outpatient ANTONIO GONZALEZ DO [id number] 07/07/2014 08:45:00 07/07/2014 23:59:59 CLS Outpatient MARIBEL GARY APRN [id number] 05/18/2014 09:53:00 05/18/2014 23:59:59 CLS Outpatient ANTONIO GONZALEZ DO [id number] 04/26/2014 11:56:00 04/26/2014 23:59:59 CLS Outpatient MARIBEL GARY APRN [id number] 04/06/2014 10:47:00 04/06/2014 23:59:59 CLS Outpatient ANTONIO GONZALEZ DO Serge [id number] 11/23/2013 09:18:00 11/23/2013 23:59:59 CLS Outpatient ABDIRAHMAN BAIRESMARIBEL [place] [id number] 11/12/2013 08:41:00 11/12/2013 23:59:59 CLS Outpatient BISI MCCORMICK MD [id number] 05/20/2013 14:38:00 05/20/2013 23:59:59 CLS Outpatient ANTONIO GONZALEZ DO Serge [id number] 01/13/2013 08:26:00 01/13/2013 23:59:59 CLS Outpatient ABDIRAHMAN MARIBEL SANTOS [id number] 12/29/2012 17:58:00 12/29/2012 23:59:59 CLS Outpatient [id number] 12/15/2012 14:30:00 12/15/2012 23:59:59 CLS Outpatient MAXX JIMENEZ [id number] 11/23/2012 08:27:00 11/23/2012 23:59:59 CLS Outpatient [id number] 11/16/2012 08:53:00 11/16/2012 23:59:59 CLS Outpatient [id number] 10/15/2012 09:46:00 10/15/2012 23:59:59 CLS Outpatient [id number] 09/30/2012 08:22:00 09/30/2012 23:59:59 CLS Outpatient [id number] 08/18/2012 10:41:00 08/18/2012 23:59:59 CLS Outpatient ABDIRAHMAN BAIRESMARIBEL Delgadillo [id number] 03/01/2013 15:23:00 Document Registration [id number] 02/24/2013 00:00:00 Document Registration [id number] 02/18/2013 09:59:00 Document Registration [id number] 07/01/2017 07:47:00 07/01/2017 23:59:59 CLS Outpatient JACE DOMÍNGUEZ FACCBISI FACP CCDS [facility] RAD CAD [id number] 05/20/2017 18:52:00 05/20/2017 23:15:00 DIS Emergency CONRADO WEBSTER MD [facility] ER DIARRHEA [id number] 05/02/2017 13:14:00 05/02/2017 15:52:00 DIS Emergency AMELIE WEEKS APRN [facility] ER DIARRHEA [id number] 04/22/2017 08:01:00 04/22/2017 23:59:[address] 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 [facility] RAD J43.8 COPD J84.9 [id number] 03/27/2017 08:36:00 03/27/2017 12:30:00 DIS Outpatient SHEREEN VORA MD [facility] ENDO HEMOCCULT POSITIVE STOOLS [id number] 03/26/2017 05:38:00 03/26/2017 10:57:00 DIS Outpatient SHEREEN VORA MD [facility] PREOP HEMOCCULT + STOOLS [id number] 03/09/2017 13:49:00 03/11/2017 12:18:00 DIS Inpatient ALF GOSS MD [facility] 4TH PNEUMONIA [id number] 02/13/2017 10:15:00 02/13/2017 23:59:[address] APRN [facility] PULM DYSPNEA,ILD,LUNG NODULE [id number] 12/05/2016 10:00:00 02/12/2017 00:01:[address] APRN [facility] PULM DYSPNEA,ILD,LUNG NODULE [id number] 11/07/2016 10:00:00 2016 00:01:[address] APRN [facility] PULM DYSPNEA,ILD,LUNG NODULE [id number] 09/10/2016 09:27:00 09/10/2016 14:55:00 DIS Outpatient JACE DOMÍNGUEZ FACC, BISI COLUNGA CCDS [facility] CATH PVD,BILAT LEG PAIN [id number] 08/02/2016 12:52:00 08/02/2016 23:59:[address] LIME SUPERVISOR [facility] RT COPD [id number] 07/29/2016 12:35:00 07/29/2016 23:59:[address] LIME SUPERVISOR [facility] RAD PNEUMONIA, LUNG NODULE, ILD, COPD, DYSPNEA [id number] 04/23/2016 11:35:00 04/23/2016 23:59:[address] APRN [facility] RAD PNEUMONIA,LUNG NODULE,ILD,DYSPNEA,HILDA [id number] 02/09/2016 22:07:00 02/12/2016 12:28:00 DIS Inpatient ANTONIO GONZALEZ DO [facility] CSD SEPSIS;CHEST PAIN; PNEUMONIA [id number] 01/11/2016 21:53:00 01/13/2016 16:39:00 DIS Inpatient NORIS NEVES MD [facility] 4TH SEPSIS,NEW ONSET AFIB WITH RVR,HYPOMAGNESEMIA [id number] 12/26/2015 09:56:00 12/26/2015 23:59:[address] APRN [facility] RAD DYSPNEA COPD [id number] 03/31/2015 08:44:00 03/31/2015 23:59:59 CLS Outpatient MARIBEL GARY [facility] RAD LUMBAGO,ABNORMAL XRAY [id number] 03/14/2015 12:32:00 03/14/2015 23:59:59 CLS Outpatient MARIBEL GARY [facility] RAD LUMBAGO W/SCIATICA [id number] 12/06/2014 11:52:00 12/06/2014 23:59:59 CLS Outpatient BISI MCCORMICK MD, FACC, FACP CCDS [facility] RAD CLAUDICATION [id number] 12/01/2014 07:42:00 12/01/2014 23:59:59 CLS Outpatient BISI MCCORMICK MD, FACC, FACP CCDS [facility] CARD CAD,HLP,HTN [id number] 11/28/2014 10:57:00 11/28/2014 23:59:59 CLS Outpatient RISHABH SAMUEL DO [facility] RAD [id number] 11/12/2014 09:31:00 11/12/2014 23:59:59 CLS Outpatient MORRIS HERRERA [facility] LAB [id number] 07/28/2014 06:00:00 07/28/2014 15:55:00 DIS Outpatient LUISA SYED DO [facility] SDC GALLSTONES; VENTRAL HERNIA [id number] 07/26/2014 07:28:00 07/26/2014 23:59:59 CLS Outpatient SYED LUISA BENSON [facility] PREOP GALLSTONES; VENTRAL HERNIA [id number] 07/12/2014 08:18:00 07/12/2014 23:59:59 CLS Outpatient MARIBEL GARY [facility] RAD VENTRAL HERNIA,ABD PAIN RUQ [id number] 07/06/2014 19:55:00 07/07/2014 06:40:00 DIS Outpatient [id number] 05/11/2014 11:31:00 05/11/2014 23:59:59 CLS Outpatient [id number] 10/07/2013 17:56:00 10/07/2013 20:10:00 DIS Emergency
== END 2017-12-05 21:27 | disposition home or self-care (01) ==
LOC: EDUNIT# 18:03 → ER 18:05
DX: M25.511 Pain in right shoulder (principal); G89.29 Other chronic pain; G47.30 Sleep apnea, unspecified; I48.91 Unspecified atrial fibrillation; I10 Essential (primary) hypertension; E78.00 Pure hypercholesterolemia, unspecified; E11.51 Type 2 diabetes mellitus with diabetic peripheral angiopathy without gangrene; I73.9 Peripheral vascular disease, unspecified; K21.9 Gastro-esophageal reflux disease without esophagitis; F41.9 Anxiety disorder, unspecified; F32.9 Major depressive disorder, single episode, unspecified; I25.10 Atherosclerotic heart disease of native coronary artery without angina pectoris; Z87.01 Personal history of pneumonia (recurrent); Z88.1 Allergy status to other antibiotic agents; Z86.010 Personal history of colon polyps; Z79.84 Long term (current) use of oral hypoglycemic drugs; Z77.22 Contact with and (suspected) exposure to environmental tobacco smoke (acute) (chronic); Z90.49 Acquired absence of other specified parts of digestive tract; Z95.5 Presence of coronary angioplasty implant and graft; Z87.19 Personal history of other diseases of the digestive system
CPT/HCPCS: 73030; 99283

== ENCOUNTER → 2017-12-30 | Outpatient (CLI) | payer MEDICARE ==
[~2017-12-30] MED LIST changes: +MELO15TA14 PO; +METH500T PO; +TRAM-42 PO
== END ==
LOC: RT 09:27
PROVIDERS: ATTEND Internal Medicine Critical Care Medicine
DX: J43.8 Other emphysema (principal); R06.02 Shortness of breath; J84.9 Interstitial pulmonary disease, unspecified; G47.33 Obstructive sleep apnea (adult) (pediatric)

== ENCOUNTER 2018-10-22 07:34 | Inpatient (IN) | payer MEDICARE, OTHER ==
[~2018-10-22] VITALS: Ht 167.6 cm; Wt 78.0 kg
[2018-10-22] VITALS (17 sets, daily range): BP systolic 103–159; BP diastolic 59–87
[~2018-10-22 07:34] MED LIST changes: -INDO25CA PO; +INDO25CA15 PO; +METF-399 PO; -METF1000 PO; -ROSU20TA30 PO; +ROSU20TA31 PO
[2018-10-22] MEDS ORDERED: NS IV 1000 ML 1,000 ML IV ONE ×2 (07:58→09:06)
[2018-10-22] MEDS ORDERED: CEFEPIME INJECTION 2,000 MG in NS (IVPB) 50 ML IV ONE (08:00)
[2018-10-22] MEDS ORDERED: ACETAMINOPHEN 500 MG TAB (TYLENOL) PO ONE (08:00)
[2018-10-22 08:03] LABS: BASOPHILS # (AUTO) 0.1 10^3/uL (0.0-0.1); BASOPHILS % (AUTO) 1 % (0-10); EOSINOPHILS # (AUTO) 0.4 10^3/uL (0.0-0.3); EOSINOPHILS % (AUTO) 4 % (0-10); HEMATOCRIT 35 % (40-54); HEMOGLOBIN 11.7 G/DL (13.3-17.7); LYMPHOCYTES # (AUTO) 1.6 X 10^3 (1.0-4.0); LYMPHOCYTES % (AUTO) 16 % (12-44); MEAN CORPUSCULAR HEMOGLOBIN 29 PG (25-34); MEAN CORPUSCULAR HGB CONC 33 G/DL (32-36); MEAN CORPUSCULAR VOLUME 87 FL (80-99); MEAN PLATELET VOLUME 9.6 FL (7.4-10.4); MONOCYTES # (AUTO) 0.9 X 10^3 (0.0-1.0); MONOCYTES % (AUTO) 9 % (0-12); NEUTROPHILS # (AUTO) 7.4 X 10^3 (1.8-7.8); NEUTROPHILS % (AUTO) 71 % (42-75); PLATELET COUNT 284 10^3/uL (130-400); RED BLOOD COUNT 4.06 10^6/uL (4.35-5.85); RED CELL DISTRIBUTION WIDTH 14.7 % (10.0-14.5); WHITE BLOOD COUNT 10.4 10^3/uL (4.3-11.0)
--- NOTE | 2018-10-22 08:06 | ED General ---
General Chief Complaint: Respiratory Problems Stated Complaint: SOB Nursing Triage Note: pt presents to ed with complaints of soa/cough since 10/17/18. reports it got significantly worse last night. Pt was seen at [facility] and was placed on antibiotic for possible pneumonia and albuterol treatments. Nursing Sepsis Screen: No Definite Risk Source of Information: Patient Exam Limitations: No Limitations History of Present Illness Date Seen by Provider: Oct 22, 2018 Time Seen by Provider: 07:49 Initial Comments This 62-year-old gentleman presents to the emergency room with complaint of cough, shortness of breath, and fever. He became ill over the weekend starting perhaps on October 17. He has had cough since . He was seen at the [facility] clinic in [place] and was started on doxycycline. He has had 4 doses. He was hypoxic on presentation with an oxygen saturation of 77 percent. He has been using nebulizer treatments at home but does not use oxygen at home. 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 Patient also has history of paroxysmal atrial fibrillation and coronary artery disease. He takes Eliquis. He believes he did take his medications this morning. Allergies and Home Medications Allergies Coded Allergies: atorvastatin (Verified Allergy, Mild, 03/26/17) Patient states that his bones ached and he wasn't able to tolerate it. Home Medications Albuterol Sulfate 2.5 Mg/3 Ml Vial.neb, 2.5 MG IH Q4H PRN for SHORTNESS OF BREATH, (Reported) Allopurinol 300 Mg Tablet, 300 MG PO BID, (Reported) Apixaban 5 Mg Tablet, 5 MG PO BID, (Reported) Budesonide/Formoterol Fumarate 10.2 Gm Hfa.aer.ad, 2 PUFF IH DAILY, (Reported) Diclofenac Sodium 100 Gm Gel..gram., TP QID PRN for GOUT PAIN, (Reported) Doxycycline Hyclate 100 Mg Capsule, 100 MG PO BID, (Reported) 10 DAY SUPPLY FILLED 10-21-18 Fenofibrate Nanocrystallized 145 Mg Tablet, 145 MG PO HS, (Reported) Fluoxetine HCl 20 Mg Capsule, 40 MG PO DAILY, (Reported) TAKES 2 (20MG) CAPSULES Fluticasone Propionate 16 Gm Martin.susp, 1 SPRAY NS BID PRN for CONGESTION, ( Reported) Gabapentin 300 Mg Capsule, 300 MG PO BID, (Reported) Glimepiride 4 Mg Tablet, 4 MG PO DAILY, (Reported) Lisinopril/Hydrochlorothiazide 1 Each Tablet, 1 TAB PO HS, (Reported) Magnesium Oxide 400 Mg Tablet, 400 MG PO DAILY, (Reported) Metformin HCl 1,000 Mg Tablet, 1,000 MG PO BID, (Reported) Metoprolol Succinate 25 Mg Tab.er.24h, 25 MG PO HS, (Reported) Montelukast Sodium 10 Mg Tablet, 10 MG PO HS, (Reported) [place] 3 Polyunsat Fatty Acids 1,000 Mg Cap, 1,000 MG PO BID, (Reported) Omeprazole 20 Mg Capsule.dr, 20 MG PO DAILY, (Reported) Potassium Gluconate 99 Mg Tablet, 99 MG PO DAILY, (Reported) Rosuvastatin Calcium 20 Mg Tablet, 20 MG PO HS, (Reported) Umeclidinium [place] 62.5 Mcg Blst.w.dev, 1 PUFF IH DAILY, (Reported) Patient Home Medication List Home Medication List Reviewed: Yes Review of Systems Review of Systems Constitutional: see HPI EENTM: no symptoms reported Respiratory: see HPI Cardiovascular: other (tachycardia) Gastrointestinal: no symptoms reported Genitourinary: no symptoms reported Musculoskeletal: no symptoms reported Skin: no symptoms reported Psychiatric/Neurological: No Symptoms Reported Hematologic/Lymphatic: No Symptoms Reported Immunological/Allergic: no symptoms reported Past Nqfrfqe-Hngtid-Qemfrc Hx Past Med/Social Hx: Reviewed Nursing Past Med/Soc Hx Patient Social History Alcohol Use: Denies Use Recreational Drug Use: No Smoking Status: Never a Smoker 2nd Hand Smoke Exposure: Yes Recent Foreign Travel: No Contact w/Someone Who Travel: No Recent Infectious Disease Expo: No Recent Hopitalizations: No Physical Abuse: No Sexual Abuse: No Mistreated: No Fear: No Immunizations Up To Date Tetanus Booster (TDap): Unknown PED Vaccines UTD: No Date of Pneumonia Vaccine: Jul 28, 2012 Date of Influenza Vaccine: Jul 30, 2016 Seasonal Allergies Seasonal Allergies: Yes Past Medical History Surgeries: Yes Abdominal, Appendectomy, Cardiac, Coronary Stent, Eye Surgery, Gallbladder, Renal Respiratory: Yes ("pigeon's disease"" URIBE'S LUNG" WITH FREQUENT PNEUMONIA; CPAP AT HS) Pneumonia, Chronic Bronchitis, Sleep Apnea Currently Using CPAP: Yes Cardiac: Yes Atrial Fibrillation, Coronary Artery Disease, High Cholesterol, Hypertension, Peripheral Vascular Neurological: No Reproductive Disorders: No Sexually Transmitted Disease: No HIV/AIDS: No Genitourinary: Yes Kidney Stones Gastrointestinal: Yes (UMBILICAL HERNIA REPAIR) Gastroesophageal Reflux Musculoskeletal: Yes (ch. right shoulder pain) Degenerate Disk Disease, Arthritis, Chronic Back Pain, Gout Endocrine: Yes Diabetes, Non-Insulin dep HEENT: Yes (EYE SURGERY CHILD) Loss of Vision: Denies Cancer: No Psychosocial: Yes Anxiety, Depression Integumentary: No Blood Disorders: No Adverse Reaction/Blood Tranf: No Family Medical History Arthritis 19 FATHER Respiratory disorder 19 FATHER 19 MOTHER Thyroid disease 19 MOTHER No Family History of: AIDS Abdominal aortic aneurysm Alcoholism Alzheimer's disease Asthma Cardiovascular disease Dementia Diabetes mellitus Drug abuse Hypertension Kidney disease Myocardial infarction Parkinson's disease Psychosocial problem Seizure disorder Lung Disease Physical Exam-Suspected Sepsis Physical Exam Vital Signs Vital Signs - First Documented 10/22/18 10/22/18 07:40 18:59 Temp 101.0 Pulse 122 Resp 20 B/P (MAP) 127/77 (94) Pulse Ox 97 O2 Delivery OxyMask O2 Flow Rate 6.00 FiO2 100 Capillary Refill : Less Than 3 Seconds Blood Pressure Mean: 94 Height, Weight, BMI Height: 5'6.00" Weight: 173lbs. 0.0oz. 78.717186iv; 27.6 BMI Method:Stated General Appearance: No Apparent Distress, WD/WN HEENT: PERRL/EOMI, Normal ENT Inspection, Other (Mucous membranes somewhat dry) Neck: Normal Inspection Respiratory: No Accessory Muscle Use, No Respiratory Distress, Crackles ( Bilateral bases) Cardiovascular: Regular Rate, Rhythm, No Edema, No Murmur, Other (Sinus rhythm on the monitor) Gastrointestinal: Normal Bowel Sounds, Non Tender, Soft Extremity: Normal Capillary Refill, Normal Inspection, Non Tender, No Calf Tenderness, No Pedal Edema, Other (Negative [place]) Neurologic/Psychiatric: Alert, Oriented x3, No Motor/Sensory Deficits, Normal Mood/Affect, contracting executive II-XII Norm as Tested Skin: normal color, warm/dry Focused Exam Sepsis Stage: Severe Sepsis Possible Source: Pulmonary Lactate Level 10/22/18 07:40: Lactic Acid Level 2.18*H 10/22/18 10:27: Lactic Acid Level 1.21 Time of Focused Exam: 09:00 Respiratory: No Accessory Muscle Use, No Respiratory Distress, Crackles Cardiovascular: Regular Rate, Rhythm Skin: normal color, warm/dry Lactic Acid Level Progress/Results/Core Measures Suspected Sepsis Recent Fever Within 48 Hours: Yes Infection Criteria Present: None New/Unexplained Altered Menta: No Sepsis Screen: No Definite Risk SIRS Temperature:101.0 Pulse: 122 Respiratory Rate: 20 Laboratory Tests 10/22/18 07:40: White Blood Count 10.4 Blood Pressure 127 /77 Mean: 94 10/22/18 07:40: Lactic Acid Level 2.18*H 10/22/18 10:27: Lactic Acid Level 1.21 Laboratory Tests 10/22/18 07:40: Creatinine 0.79, INR Comment 1.5H, Platelet Count 284, Total Bilirubin 0.6 Results/Orders Lab Results Laboratory Tests Test 10/22/18 07:40 10/22/18 08:34 10/22/18 10:27 10/22/18 11:30 Range/Units White Blood Count 10.4 4.3-11.0 10^3/uL Red Blood Count 4.06 L 4.35-5.85 10^6/uL Hemoglobin 11.7 L 13.3-17.7 G/DL Hematocrit 35 L 40-54 % Mean Corpuscular Volume 87 80-99 FL Mean Corpuscular Hemoglobin 29 25-34 PG Mean Corpuscular Hemoglobin Concent 33 32-36 G/DL Red Cell Distribution Width 14.7 H 10.0-14.5 % Platelet Count 284 130-400 10^3/uL Mean Platelet Volume 9.6 7.4-10.4 FL Neutrophils (%) (Auto) 71 42-75 % Lymphocytes (%) (Auto) 16 12-44 % Monocytes (%) (Auto) 9 0-12 % Eosinophils (%) (Auto) 4 0-10 % Basophils (%) (Auto) 1 0-10 % Neutrophils # (Auto) 7.4 1.8-7.8 X 10^3 Lymphocytes # (Auto) 1.6 1.0-4.0 X 10^3 Monocytes # (Auto) 0.9 0.0-1.0 X 10^3 Eosinophils # (Auto) 0.4 H 0.0-0.3 10^3/uL Basophils # (Auto) 0.1 0.0-0.1 10^3/uL Prothrombin Time 17.7 H 12.2-14.7 SEC INR Comment 1.5 H 0.8-1.4 Activated Partial Thromboplast Time 35 24-35 SEC Sodium Level 137 135-145 MMOL/L Potassium Level 4.1 3.6-5.0 MMOL/L Chloride Level 105 98-107 MMOL/L Carbon Dioxide Level 20 L 21-32 MMOL/L Anion Gap 12 5-14 MMOL/L Blood Urea Nitrogen 22 H 7-18 MG/DL Creatinine 0.79 0.60-1.30 MG/DL Estimat Glomerular Filtration Rate > 60 BUN/Creatinine Ratio 28 Glucose Level 188 H 70-105 MG/DL Lactic Acid Level 2.18 *H 1.21 0.50-2.00 MMOL/L Calcium Level 9.5 8.5-10.1 MG/DL Corrected Calcium 9.7 8.5-10.1 MG/DL Total Bilirubin 0.6 0.1-1.0 MG/DL Aspartate Amino Transf (AST/SGOT) 24 5-34 U/L Alanine Aminotransferase (ALT/SGPT) 25 0-55 U/L Alkaline Phosphatase 73 40-136 U/L B-Type Natriuretic Peptide 39.5 <100.0 PG/ML Total Protein 7.3 6.4-8.2 GM/DL Albumin 3.8 3.2-4.5 GM/DL Urine Color YELLOW Urine Clarity CLEAR Urine pH 6 5-9 Urine Specific [place] 1.015 L 1.016-1.022 Urine Protein 2+ H NEGATIVE Urine Glucose (UA) NEGATIVE NEGATIVE Urine Ketones NEGATIVE NEGATIVE Urine Nitrite NEGATIVE NEGATIVE Urine Bilirubin NEGATIVE NEGATIVE Urine Urobilinogen 1 NORMAL MG/DL Urine Leukocyte Esterase NEGATIVE NEGATIVE Urine RBC (Auto) 3+ H NEGATIVE Urine RBC 0-2 /HPF Urine WBC NONE /HPF Urine Squamous Epithelial Cells NONE /HPF Urine Crystals NONE /LPF Urine Bacteria NEGATIVE /HPF Urine Casts NONE /LPF Urine Mucus NEGATIVE /LPF Urine Culture Indicated NO Blood Gas Puncture Site L RADIAL Blood Gas Patient Temperature 98.2 Arterial Blood pH 7.38 7.37-7.43 Arterial Blood Partial Pressure CO2 39 35-45 MMHG Arterial Blood Partial Pressure O2 130 H 79-93 MMHG Arterial Blood HCO3 23 23-27 MMOL/L Arterial Blood Total CO2 23.8 21.0-31.0 MMOL/L Arterial Blood Oxygen Saturation 99 94-100 % Arterial Blood Base Excess -1.8 -2.5-2.5 MMOL/L Hiro Test YES-POS Blood Gas Ventilator Setting NA Blood Gas Inspired Oxygen 10 Test 10/22/18 16:08 Range/Units Glucometer 141 H 70-110 MG/DL Micro Results Microbiology 10/22/18 Influenza Types A,B Antigen (VICENTE) - Final, Complete My Orders Orders - CONRADO WEBSTER MD Cbc With Automated Diff (10/22/18 07:50) Comprehensive Metabolic Panel (10/22/18 07:50) Blood Culture (10/22/18 07:50) Sputum Culture (10/22/18 07:50) Urinalysis (10/22/18 07:50) Urine Culture (10/22/18 07:50) Protime With Inr (10/22/18 07:50) Partial Thromboplastin Time (10/22/18 07:50) Chest 1 View, Ap/Pa Only (10/22/18 07:50) Saline Lock/Iv-Start (10/22/18 07:50) Saline Lock/Iv-Start (10/22/18 07:50) Vital Signs Adult Sepsis Patie Q15M (10/22/18 07:50) O2 (10/22/18 07:50) Remove Rings In Anticipation O (10/22/18 07:50) Lactic Acid Analyzer (10/22/18 07:50) Influenza A And B Antigens (10/22/18 07:50) Acetaminophen Tablet (Tylenol Tablet) (10/22/18 08:00) Saline Lock/Iv-Start (10/22/18 07:58) Ns Iv 1000 Ml (Sodium Chloride 0.9%) (10/22/18 07:58) Cefepime Injection (Maxipime Injection) (10/22/18 08:00) Ns Iv 1000 Ml (Sodium Chloride 0.9%) (10/22/18 09:06) Medications Given in ED Current Medications Medications Dose Ordered Sig/Shabana Route Start Time Stop Time Status Last Admin Dose Admin Sodium Chloride 1,000 ml @ 0 mls/hr Q0M ONCE IV 10/22/18 09:06 10/22/18 09:07 DC 10/22/18 09:49 0 MLS/HR Vital Signs/I&O 10/22/18 10/22/18 10/22/18 10/22/18 10:30 10:30 10:40 10:45 Temp 98.2 Pulse 86 93 88 Resp 12 20 22 B/P (MAP) 110/73 (85) 108/68 (81) 110/73 (85) Pulse Ox 96 97 96 O2 Delivery OxyMask OxyMask OxyMask OxyMask O2 Flow Rate 6.00 6.00 6.00 6.00 10/22/18 10/22/18 10/22/18 10/22/18 10:58 11:00 11:00 11:15 Pulse 87 89 87 Resp 19 14 B/P (MAP) 103/62 (76) 110/77 (88) Pulse Ox 98 100 O2 Delivery High Flow N/C High Flow N/C High Flow N/C O2 Flow Rate 10.00 10.00 10.00 10/22/18 10/22/18 10/22/18 10/22/18 11:30 11:52 12:00 12:00 Temp 97.5 Pulse 85 93 Resp 18 21 B/P (MAP) 114/78 (90) 114/59 (77) Pulse Ox 99 99 99 O2 Delivery High Flow N/C High Flow N/C High Flow N/C High Flow N/C O2 Flow Rate 10.00 8.00 8.00 8.00 10/22/18 10/22/18 10/22/18 10/22/18 13:01 13:01 13:20 14:00 Pulse 84 87 86 Resp 17 23 B/P (MAP) 117/75 (89) 104/70 (81) Pulse Ox 92 94 O2 Delivery High Flow N/C High Flow N/C High Flow N/C O2 Flow Rate 8.00 6.00 6.00 10/22/18 10/22/18 10/22/18 10/22/18 14:45 15:00 16:00 16:00 Pulse 92 96 Resp 20 38 B/P (MAP) 125/87 (100) 145/76 (99) Pulse Ox 93 95 88 92 O2 Delivery Nasal Cannula High Flow N/C High Flow N/C High Flow N/C O2 Flow Rate 6.00 6.00 6.00 6.00 10/22/18 10/22/18 10/22/18 10/22/18 16:05 16:15 16:59 17:00 Temp 98.4 Pulse 103 Resp 37 B/P (MAP) 159/80 (106) Pulse Ox 78 O2 Delivery High Flow N/C Vapotherm Vapotherm O2 Flow Rate 12.00 100.00 100.00 40.00 40.00 10/22/18 10/22/18 10/22/18 10/22/18 17:07 17:26 18:00 18:59 Pulse 106 Resp 21 B/P (MAP) 140/84 (102) Pulse Ox 99 100 99 98 O2 Delivery Vapotherm Vapotherm Vapotherm Vapotherm O2 Flow Rate 100.00 100.00 100.00 25.00 30.00 25.00 25.00 FiO2 100 10/22/18 10/22/18 19:05 19:46 Temp 100.0 Pulse Ox 94 O2 Delivery Vapotherm O2 Flow Rate 80.00 25.00 Capillary Refill : Less Than 3 Seconds Blood Pressure Mean: 94 Progress Note : Progress Note Patient was considered to have severe sepsis due to respiratory failure with hypoxia in the context of sepsis. High-volume fluid resuscitation was initiated in the ER was 2 L of IV fluid. Cefepime 2 g IV was administered as initial antibiotic therapy. Case was discussed with Dr. Hudson and Dr. Hightower. Tylenol was given for fever. Diagnostic Imaging Diagonstic Imaging: Xray Plain Films/CT/US/NM/MRI: chest Comments Chest x-ray viewed by me and report reviewed. See report below: NAME: AMIRA FREEMAN [facility] REC#: [id number] PT STATUS: REG ER : 1955 PHYSICIAN: CONRADO WEBSTER MD ADMIT DATE: 10/22/18/ER Draft Date of Exam:10/22/18 CHEST 1 VIEW, AP/PA ONLY INDICATION: Shortness of air. Cough. COMPARISON: 03/09/2017. FINDINGS: Single frontal radiographic view of the chest was obtained and demonstrates patchy infiltrate appearing opacities within the left mid and lower lung field concerning for acute pneumonia. Right lung shows less prominent patchy opacities within the right base. There is no large effusion or pneumothorax. Cardiac silhouette and pulmonary vasculature stable. Bony structures show no gross acute abnormalities. IMPRESSION: 1. Interval development of acute pneumonia appearing infiltrates, left greater than right. Dictated on workstation # [id number] Dict: 10/22/18821 Trans: 10/22/18 0826 [facility] [id number] Interpreted by: KAYLI YANG MD Departure Communication (Admissions) Time/Spoke to Admitting Phy: 08:47 Dr. Hudson Time/Spoke to Consulting Phy: 09:00 Dr. Hightower Impression Primary Impression: Severe sepsis Additional Impressions: Hypoxia Bilateral pneumonia Qualified Codes: J18.9 - Pneumonia, unspecified organism Roebuck-fanciers' disease or lung Disposition: ADMITTED INPATIENT Condition: Improved Admissions Decision to Admit Reason: Admit from ER (General) Decision to Admit/Date: Oct 22, 2018 Time/Decision to Admit Time: 08:00 Departure-Patient Inst. Ref[place]: [facility] [place] Primary Care Physician MARIBEL GARY (Family) Primary Care Physician CONRADO WEBSTER MD Oct 22, 2018 08:06
[2018-10-22 08:14] LABS: INR 1.5 (0.8-1.4); PROTHROMBIN TIME PATIENT 17.7 SEC (12.2-14.7)
[2018-10-22 08:16] LABS: ALANINE AMINOTRANSFERASE 25 U/L (0-55); ALBUMIN 3.8 GM/DL (3.2-4.5); ALKALINE PHOSPHATASE 73 U/L (40-136); BILIRUBIN,TOTAL 0.6 MG/DL (0.1-1.0); BUN/CREATININE RATIO 28; CALCIUM 9.5 MG/DL (8.5-10.1); CARBON DIOXIDE 20 MMOL/L (21-32); CHLORIDE 105 MMOL/L (98-107); CREATININE SERUM 0.79 MG/DL (0.60-1.30); GFR ESTIMATED > 60; GLUCOSE 188 MG/DL (70-105); POTASSIUM 4.1 MMOL/L (3.6-5.0); SODIUM 137 MMOL/L (135-145); TOTAL PROTEIN 7.3 GM/DL (6.4-8.2)
--- NOTE | 2018-10-22 08:26 | Diagnostic Imaging Report ---
INDICATION: Shortness of air. Cough. COMPARISON: 03/09/2017. FINDINGS: Single frontal radiographic view of the chest was obtained and demonstrates patchy infiltrate appearing opacities within the left mid and lower lung field concerning for acute pneumonia. Right lung shows less prominent patchy opacities within the right base. There is no large effusion or pneumothorax. Cardiac silhouette and pulmonary vasculature stable. Bony structures show no gross acute abnormalities. IMPRESSION: 1. Interval development of acute pneumonia appearing infiltrates, left greater than right. Dictated by: Dictated on workstation # [id number]
[2018-10-22 08:38] LABS: BILIRUBIN,URINE NEGATIVE (NEGATIVE); CLARITY,URINE CLEAR; COLOR,URINE YELLOW; GLUCOSE, URINE (UA) NEGATIVE (NEGATIVE); KETONES,URINE NEGATIVE (NEGATIVE); LEUKOCYTE ESTERASE ,URINE NEGATIVE (NEGATIVE); NITRITE,URINE NEGATIVE (NEGATIVE); PH,URINE 6 (5-9); PROTEIN,URINE 2+ (NEGATIVE); UROBILINOGEN,URINE 1 MG/DL (NORMAL)
[2018-10-22 08:46] LABS: RBC,URINE 0-2 /HPF
[2018-10-22 08:47] LABS: BACTERIA,URINE NEGATIVE /HPF
[2018-10-22] MEDS ORDERED: NS IV ONE (11:00)
[2018-10-22] MEDS ORDERED: EPINEPHrine 1 MG INJECTION 5 MG in NS (IVPB) 250 ML IV SCH (11:00)
[2018-10-22] MEDS: NOREPINEPHRINE 4 MG in NS (IVPB) 250 ML IV SCH ×2 (11:06→23:59)
[2018-10-22] MEDS: VASOPRESSIN INJECTION 20 UNIT in NS (IVPB) 100 ML IV SCH ×2 (11:07→19:40)
--- NOTE | 2018-10-22 11:07 | NUR ---
IVF BOLUS GIVEN IN ER
[2018-10-22] MEDS: NS IV 1000 ML 1,000 ML IV SCH ×3 (11:11→20:17)
--- NOTE | 2018-10-22 11:13 | Pulmonary Consultation ---
History of Present Illness History of Present Illness Date of Consultation 10/22/18 11:09 Date of Admission Allergies and Home Medications Allergies Coded Allergies: atorvastatin (Verified Allergy, Mild, 03/26/17) Patient states that his bones ached and he wasn't able to tolerate it. Home Medications Albuterol Sulfate 2.5 Mg/3 Ml Vial.neb, 2.5 MG IH Q4H PRN for SHORTNESS OF BREATH, (Reported) Allopurinol 300 Mg Tablet, 300 MG PO BID, (Reported) Budesonide/Formoterol Fumarate 10.2 Gm Hfa.aer.ad, 2 PUFF IH DAILY, (Reported) Ciprofloxacin HCl 500 Mg Tablet, 500 MG PO BID Prescribed by: AMELIE WEEKS on 05/02/171542 Ciprofloxacin HCl 500 Mg Tablet, 500 MG PO BID Prescribed by: CONRADO BOOKER on 05/20/172305 Diclofenac Sodium 100 Gm Gel..gram., TP QID PRN for GOUT PAIN, (Reported) Dulaglutide 0.75 Mg/0.5 Ml Pen.injctr, 0.75 MG SQ We, (Reported) Fenofibrate Nanocrystallized 145 Mg Tablet, 145 MG PO HS, (Reported) Fluoxetine HCl 20 Mg Capsule, 40 MG PO DAILY, (Reported) TAKES 2 (20MG) CAPSULES Fluticasone Propionate 16 Gm [place].susp, 1 SPRAY NS BID PRN for CONGESTION, ( Reported) Gabapentin 300 Mg Capsule, 300 MG PO TID, (Reported) Glimepiride 4 Mg Tablet, 4 MG PO DAILY, (Reported) Hyoscyamine Sulfate 0.125 Mg Tab.subl, 1-2 TAB SL Q4H PRN for CRAMPS Prescribed by: CONRADO BOOKER on 05/20/172305 Lisinopril/Hydrochlorothiazide 1 Each Tablet, 1 TAB PO HS, (Reported) Magnesium Oxide 400 Mg Tablet, 400 MG PO TID Prescribed by: CONRADO BOOKER on 05/20/172305 Meloxicam 15 Mg Tablet, 15 MG PO DAILY Prescribed by: PATTI CAPPS on 12/05/172116 Metformin HCl 1,000 Mg Tablet, 1,000 MG PO BID, (Reported) Methocarbamol 500 Mg Tablet, 500 MG PO QID Prescribed by: PATTI CAPPS on 12/05/172116 Metoprolol Succinate 25 Mg Tab.er.24h, 25 MG PO HS, (Reported) Metronidazole 500 Mg Tablet, 500 MG PO TID Prescribed by: AMELIE WEEKS on 05/02/17 154 Metronidazole 500 Mg Tablet, 500 MG PO BID Prescribed by: CONRADO BOOKER on 05/20/17 2306 Montelukast Sodium 10 Mg Tablet, 10 MG PO HS, (Reported) [place] 3 Polyunsat Fatty Acids 1,000 Mg Cap, 1,000 MG PO BID, (Reported) Omeprazole 20 Mg Capsule.dr, 20 MG PO DAILY, (Reported) Potassium Gluconate 99 Mg Tablet, 99 MG PO DAILY, (Reported) Rosuvastatin Calcium 20 Mg Tablet, 20 MG PO HS, (Reported) Tramadol HCl 50 Mg Tablet, 50 MG PO Q4H Prescribed by: PATTI CAPPS on 12/05/172116 Umeclidinium [place] 62.5 Mcg Blst.w.dev, 1 PUFF IH DAILY, (Reported) Past Wdutrdu-Irkfeq-Wixwpv Hx Past Med/Social Hx: Reviewed Nursing Past Med/Soc Hx Patient Social History Alcohol Use: Denies Use Recreational Drug Use: No Smoking Status: Never a Smoker 2nd Hand Smoke Exposure: Yes Recent Foreign Travel: No Contact w/Someone Who Travel: No Recent Infectious Disease Expo: No Recent Hopitalizations: No Physical Abuse: No Sexual Abuse: No Mistreated: No Fear: No Immunizations Up To Date Tetanus Booster (TDap): Unknown PED Vaccines UTD: No Date of Pneumonia Vaccine: Jul 28, 2012 Date of Influenza Vaccine: Jul 30, 2016 Seasonal Allergies Seasonal Allergies: Yes Past Medical History Surgeries: Yes Abdominal, Appendectomy, Cardiac, Coronary Stent, Eye Surgery, Gallbladder, Renal Respiratory: Yes ("pigeon's disease"" URIBE'S LUNG" WITH FREQUENT PNEUMONIA; CPAP AT HS) Pneumonia, Chronic Bronchitis, Sleep Apnea Currently Using CPAP: Yes Cardiac: Yes Atrial Fibrillation, Coronary Artery Disease, High Cholesterol, Hypertension, Peripheral Vascular Neurological: No Reproductive Disorders: No Sexually Transmitted Disease: No HIV/AIDS: No Genitourinary: Yes Kidney Stones Gastrointestinal: Yes (UMBILICAL HERNIA REPAIR) Gastroesophageal Reflux Musculoskeletal: Yes (ch. right shoulder pain) Degenerate Disk Disease, Arthritis, Chronic Back Pain, Gout Endocrine: Yes Diabetes, Non-Insulin dep HEENT: Yes (EYE SURGERY CHILD) Loss of Vision: Denies Cancer: No Psychosocial: Yes Anxiety, Depression Integumentary: No Blood Disorders: No Adverse Reaction/Blood Tranf: No Family Medical History Arthritis 19 FATHER Respiratory disorder 19 FATHER 19 MOTHER Thyroid disease 19 MOTHER No Family History of: AIDS Abdominal aortic aneurysm Alcoholism Alzheimer's disease Asthma Cardiovascular disease Dementia Diabetes mellitus Drug abuse Hypertension Kidney disease Myocardial infarction Parkinson's disease Psychosocial problem Seizure disorder Lung Disease Sepsis Event Evaluation Height, Weight, BMI Height: 5'6.00" Weight: 173lbs. 0.0oz. 78.803663gp; 27.6 BMI Method:Stated Exam Exam Vital Signs Date Time Temp Pulse Resp B/P (MAP) Pulse Ox O2 Delivery O2 Flow Rate FiO2 10/22/18 10:40 93 20 108/68 (81) 97 OxyMask 6.00 10/22/18 08:30 97 OxyMask 6.00 10/22/18 07:40 101.0 122 20 127/77 (94) 97 OxyMask 6.00 Height & Weight Height: 5'6.00" Weight: 173lbs. 0.0oz. 78.505068ra; 27.6 BMI Method:Stated Capillary Refill: Less Than 3 Seconds Results Lab Laboratory Tests 10/22/18 07:40 Assessment/Plan Assessment/Plan Acute pneumonia with hypoxia and atelectasis with severe sepsis -Continue cefepime -Samson cultures pending -Strep/legionella ag -MRSA nasal swab -IVF -sepsis protocol COPDAE -SVNS CAD hx DOUG SAMUEL DO Oct 22, 2018 11:13
[2018-10-22 11:40] LABS: ABG BASE EXCESS -1.8 MMOL/L (-2.5-2.5); ABG OXYGEN SATURATION 99 % (94-100); ABG PCO2 39 MMHG (35-45); ABG PH 7.38 (7.37-7.43); ABG PO2 130 MMHG (79-93); ABG TCO2 23.8 MMOL/L (21.0-31.0); ALLENS TEST YES-POS; INSPIRED O2 10
[2018-10-22 11:41] LABS: PATIENT TEMP 98.2
--- NOTE | 2018-10-22 11:48 | NUR ---
Pastoral Care Visit.
[2018-10-22] MEDS ORDERED: RT-ALBUTEROL SULF 2.5 MG/3 ML PRE-MIX VIAL INH PRN (12:15)
[2018-10-22] MEDS ORDERED: APIX5TAB PO (14:09)
[2018-10-22] MEDS ORDERED: MAGN400T39 PO (14:09)
[2018-10-22] MEDS ORDERED: DOXY100C2 PO (14:09)
--- NOTE | 2018-10-22 14:16 | NUR ---
WENT OVER THE EXT MED HX WITH THE PATIENT AND HE VERIFIED HOW HE TAKES THEM. IN ADDITION TO WHAT IS SHOWN ON THE EXT MED HX ESTEFANIA DRUG FILLED: AUGUST - MAGNESIUM 400MG DAILY AUGUST - FENOFIBRATE 145MG DAILY HE TAKES POTASSIUM AND FISH OIL OTC. HE STATES HE HAS SYMBICORT AND INCRUSE ON HAND HE RECEIVES SAMPLES OF FROM DR. SAMUEL. HE HAD BEEN USING VICTOZA BUT IS UNABLE TO AFFORD IT AND WAS GETTING IT THROUGH PALS AT [facility] HOWEVER LAST MONTH THEY STOPPED BEING ABLE TO PROVIDE IT FOR HIM SO HE HAS BEEN OUT OF IT FOR THE PAST MONTH AND DOES NOT KNOW WHEN HE WILL BE ABLE TO GET ANYMORE. HE STATES HE DOES TAKE METOPROLOL DAILY, IT WAS LAST FILLED 12-12-17 #180 ACCORDING TO THE EXT MED HX, HE STATES HE ONLY TAKES ONE DAILY.
[2018-10-22] MEDS: CEFEPIME 1 GM/NS 50 ML IV SCH ×4 (14:43→20:15)
[2018-10-22] MEDS: RT-ALBUTEROL SULF 2.5 MG/3 ML PRE-MIX VIAL INH SCH ×3 (14:44→22:22)
--- NOTE | 2018-10-22 17:01 | NUR ---
RT PLACED PT ON VAPOTHERM DUE TO DECREASING O2 SATS. WILL CONTINUE TO MONITOR
--- NOTE | 2018-10-22 20:23 | NUR ---
Pt reports headache at this time, E-ICU called, awaiting orders.
[2018-10-22] MEDS: ACETAMINOPHEN 500 MG TAB (TYLENOL) PO PRN (21:21)
[2018-10-23] VITALS (24 sets, daily range): BP systolic 105–158; BP diastolic 62–98
[2018-10-23] MEDS: CEFEPIME 1 GM/NS 50 ML IV SCH ×8 (02:09→21:54)
[2018-10-23] MEDS: RT-ALBUTEROL SULF 2.5 MG/3 ML PRE-MIX VIAL INH SCH ×6 (02:18→21:30)
[2018-10-23] MEDS: VASOPRESSIN INJECTION 20 UNIT in NS (IVPB) 100 ML IV SCH ×3 (04:05→20:14)
[2018-10-23] MEDS: NS IV 1000 ML 1,000 ML IV SCH ×2 (04:05→11:56)
[2018-10-23 04:29] LABS: BASOPHILS % (AUTO) 1 % (0-10); EOSINOPHILS # (AUTO) 0.4 10^3/uL (0.0-0.3); EOSINOPHILS % (AUTO) 5 % (0-10); HEMATOCRIT 32 % (40-54); HEMOGLOBIN 9.8 G/DL (13.3-17.7); LYMPHOCYTES # (AUTO) 1.4 X 10^3 (1.0-4.0); LYMPHOCYTES % (AUTO) 20 % (12-44); MEAN CORPUSCULAR HEMOGLOBIN 28 PG (25-34); MEAN CORPUSCULAR HGB CONC 31 G/DL (32-36); MEAN CORPUSCULAR VOLUME 90 FL (80-99); MEAN PLATELET VOLUME 9.5 FL (7.4-10.4); MONOCYTES # (AUTO) 0.9 X 10^3 (0.0-1.0); MONOCYTES % (AUTO) 13 % (0-12); NEUTROPHILS # (AUTO) 4.3 X 10^3 (1.8-7.8); NEUTROPHILS % (AUTO) 61 % (42-75); PLATELET COUNT 198 10^3/uL (130-400); RED BLOOD COUNT 3.53 10^6/uL (4.35-5.85); RED CELL DISTRIBUTION WIDTH 14.5 % (10.0-14.5); WHITE BLOOD COUNT 6.9 10^3/uL (4.3-11.0)
[2018-10-23 04:49] LABS: ALANINE AMINOTRANSFERASE 28 U/L (0-55); ALBUMIN 3.1 GM/DL (3.2-4.5); ALKALINE PHOSPHATASE 59 U/L (40-136); BILIRUBIN,TOTAL 0.6 MG/DL (0.1-1.0); BUN/CREATININE RATIO 22; CALCIUM 8.1 MG/DL (8.5-10.1); CARBON DIOXIDE 20 MMOL/L (21-32); CHLORIDE 111 MMOL/L (98-107); GFR ESTIMATED > 60; GLUCOSE 114 MG/DL (70-105); MAGNESIUM 1.1 MG/DL (1.8-2.4); PHOSPHORUS 2.3 MG/DL (2.3-4.7); POTASSIUM 3.4 MMOL/L (3.6-5.0); SODIUM 142 MMOL/L (135-145); TOTAL PROTEIN 6.1 GM/DL (6.4-8.2)
[2018-10-23] MEDS: KCL 20 MEQ TAB (K-DUR) PO SCH (06:10)
[2018-10-23] MEDS: MAGNESIUM 1 GM/100 ML IVPB 100 ML IV SCH ×5 (06:10→10:34)
[2018-10-23] MEDS: POTASSIUM CL 10MEQ/50ML IVPB 50 ML IV SCH ×7 (06:10→12:59)
--- NOTE | 2018-10-23 07:31 | Diagnostic Imaging Report ---
INDICATION: Dyspnea. COMPARISON: 10/22/2018 FINDINGS: Single frontal radiographic view of the chest was obtained and demonstrates interval progression of pneumonia type infiltrates bilaterally. There is area of more dense consolidation within the left mid and lower lung field. No large effusion or pneumothorax is seen. Cardiac silhouette is stable. Bony structures show no gross acute abnormalities. IMPRESSION: 1. Interval progression of bilateral infiltrates. Continued followup is recommended. Dictated by: Dictated on workstation # [id number]
[2018-10-23] MEDS: ACETAMINOPHEN 500 MG TAB (TYLENOL) PO PRN (08:22)
--- NOTE | 2018-10-23 09:07 | Pulmonary Progress Note ---
Subjective Time Seen by a Provider: 09:13 Subjective/Events-last exam PT states he is feeling less SOB however he still has conversational dyspnea. Sepsis Event Evaluation Height, Weight, BMI Height: 5'6.00" Weight: 185lbs. 4.0oz. 84.721891lx; 30.1 BMI Method:Stated Focused Exam Lactate Level 10/22/18 07:40: Lactic Acid Level 2.18*H 10/22/18 10:27: Lactic Acid Level 1.21 Time of Focused Exam: 09:00 Exam Exam Vital Signs Date Time Temp Pulse Resp B/P (MAP) Pulse Ox O2 Delivery O2 Flow Rate FiO2 10/23/18 08:20 99.5 10/23/18 08:00 98 Vapotherm 25.00 80 10/23/18 06:51 96 Vapotherm 25.00 80 10/23/18 06:00 117 14 158/98 (118) Vapotherm 80.00 25.00 10/23/18 05:00 88 32 140/88 (105) Vapotherm 80.00 25.00 10/23/18 04:00 96 Vapotherm 25.00 80 10/23/18 04:00 87 34 129/73 (91) 96 Vapotherm 80.00 25.00 10/23/18 03:53 98.4 10/23/18 03:00 93 31 116/72 (87) 95 Vapotherm 80.00 25.00 10/23/18 02:19 93 Vapotherm 25.00 80 10/23/18 02:00 84 30 116/75 (89) 97 Vapotherm 80.00 25.00 10/23/18 01:00 90 28 105/62 (76) 98 Vapotherm 80.00 25.00 10/23/18 01:00 90 10/23/18 00:00 82 27 118/76 (90) 98 Vapotherm 80.00 25.00 10/23/18 00:00 98 Vapotherm 25.00 80 10/22/18 23:40 97.8 10/22/18 23:00 84 24 128/70 (89) 100 Vapotherm 80.00 25.00 10/22/18 22:23 98 Vapotherm 25.00 80 10/22/18 22:00 94 30 125/85 (98) 99 Vapotherm 80.00 25.00 10/22/18 21:00 105 29 136/80 (98) 91 Vapotherm 80.00 25.00 10/22/18 20:00 116 24 141/87 (105) 95 Vapotherm 80.00 25.00 10/22/18 20:00 94 Vapotherm 25.00 80 10/22/18 19:46 100.0 10/22/18 19:05 94 Vapotherm 80.00 25.00 10/22/18 19:00 108 27 136/84 (101) 98 Vapotherm 100.00 25.00 10/22/18 19:00 108 10/22/18 18:59 98 Vapotherm 25.00 100 10/22/18 18:00 106 21 140/84 (102) 99 Vapotherm 100.00 25.00 10/22/18 17:26 100 Vapotherm 100.00 25.00 10/22/18 17:07 99 Vapotherm 100.00 30.00 10/22/18 17:00 103 37 159/80 (106) 78 Vapotherm 100.00 40.00 10/22/18 16:59 Vapotherm 100.00 40.00 10/22/18 16:15 High Flow N/C 12.00 10/22/18 16:05 98.4 10/22/18 16:00 92 High Flow N/C 6.00 10/22/18 16:00 96 38 145/76 (99) 88 High Flow N/C 6.00 10/22/18 15:00 92 20 125/87 (100) 95 High Flow N/C 6.00 10/22/18 14:45 93 Nasal Cannula 6.00 10/22/18 14:00 86 23 104/70 (81) 94 High Flow N/C 6.00 10/22/18 13:20 High Flow N/C 6.00 10/22/18 13:01 87 17 117/75 (89) 92 High Flow N/C 8.00 10/22/18 13:01 84 10/22/18 12:00 93 21 114/59 (77) 99 High Flow N/C 8.00 10/22/18 12:00 99 High Flow N/C 8.00 10/22/18 11:52 97.5 High Flow N/C 8.00 10/22/18 11:30 85 18 114/78 (90) 99 High Flow N/C 10.00 10/22/18 11:15 87 14 110/77 (88) 100 High Flow N/C 10.00 10/22/18 11:00 89 19 103/62 (76) 98 High Flow N/C 10.00 10/22/18 11:00 High Flow N/C 10.00 10/22/18 10:58 87 10/22/18 10:45 88 22 110/73 (85) 96 OxyMask 6.00 10/22/18 10:40 93 20 108/68 (81) 97 OxyMask 6.00 10/22/18 10:30 98.2 86 12 110/73 (85) 96 OxyMask 6.00 10/22/18 10:30 OxyMask 6.00 I & O 10/23/18 07:00 Intake Total 5880 ml Output Total 3175 ml Balance 2705 ml Height & Weight Height: 5'6.00" Weight: 185lbs. 4.0oz. 84.459938ks; 30.1 BMI Method:Stated General Appearance: WD/WN, Anxious, Mild Distress HEENT: PERRL/EOMI, Normal ENT Inspection, Other (Mucous membranes somewhat dry) Neck: Normal Inspection Respiratory: Accessory Muscle Use, Crackles, Decreased Breath Sounds Cardiovascular: Regular Rate, Rhythm Capillary Refill: Less Than 3 Seconds Gastrointestinal: normal bowel sounds, non tender, soft, no organomegaly Extremity: Normal Capillary Refill, Normal Inspection, Non Tender, No Calf Tenderness, No Pedal Edema, Other (Negative [place]) Neurologic/Psychiatric: Alert, Oriented x3, No Motor/Sensory Deficits, Normal 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 I discussed with patient probable need for intubation and bronchoscopy. Right now he is feeling slightly better so will hold off for now. -Place Johnson catheter -CXR shows bilateral infiltrates - will give 20mg of lasix -Continue cefepime -Samson cultures pending -Strep/legionella ag are negative -MRSA nasal swab -IVF KVO COPDAE -SVNS Q4 -Start solumedrol (eosinophils are slightly elevated on CBC) Hx of Paroxysmal Afib - currently sinus -Hold Eliquis for now Hypokalemia/hypomag -replace Anemia -Check occult stool -Will hold eliquis however start Lovenox PPX dose 40mg sub q daily -Monitor CAD hx DOUG SAMUEL DO Oct 23, 2018 09:07
[2018-10-23] MEDS ORDERED: FUROSEMIDE 40 MG/4 ML INJ (LASIX) IVP NR (09:15)
[2018-10-23] MEDS ORDERED: methylPREDNISolone 125 MG (Solu-MEDROL) VIAL IV NR (09:15)
[2018-10-23] MEDS: PANTOPRAZOLE 40 MG (PROTONIX) VIAL IV SCH (10:12)
[2018-10-23] MEDS: ENOXAPARIN 40 MG/0.4 ML (LOVENOX) SYR SC SCH (10:12)
[2018-10-23] MEDS ORDERED: inSUlin ASPART (NovoLOG) 1 UNIT/0.01 ML (CHARGE PER UNIT) ONE (10:52)
[2018-10-23] MEDS: inSUlin ASPART (NovoLOG) 1 UNIT/0.01 ML (CHARGE PER UNIT) SQ SCH ×3 (10:55→21:54)
[2018-10-23] MEDS: methylPREDNISolone 40 MG/ML (Solu-MEDROL) VIAL IV SCH ×2 (13:19→18:27)
--- NOTE | 2018-10-23 13:24 | History & Physicial (CHS) ---
HPI History of Present Illness: This is a 62 yo male patient with hx of COPD who presented to the ER with worsening dyspnea since 10/19/18. Pt has had fever, Tmax 101 since admission. Pt has history of histoplasmosis. Patient was found to be hypoxic in the ER and determined to have pneumonia on CXR. Pt was admitted to ICU and Dr. Hightower has been managing critical care. Pt was mildly hypotensive in the ER and was given 30mL/kg resuscitation of IVF. This am pt reports he feels slightly improved, however his CXR has worsened. Source: patient Exam Limitations: no limitations Date seen by provider: Oct 23, 2018 Time Seen by Provider: 10:10 Attending Physician Antonio Gonzalez DO [facility] Consult Date of Admission Oct 22, 2018 at 09:28 Home Medications Home Medications Reviewed patient Home Medication Reconciliation performed by pharmacy medication reconciliations remanufacturing technician and/or nursing. Patients Allergies have been reviewed. Allergies Coded Allergies: atorvastatin (Verified Allergy, Mild, 03/26/17) Patient states that his bones ached and he wasn't able to tolerate it. GLZ-Ggnlof-Ilrbkp Hx Patient Social History Alcohol Use: Denies Use Recreational Drug Use: No Smoking Status: Never a Smoker 2nd Hand Smoke Exposure: Yes Recent Foreign Travel: No Contact w/other who traveled: No Recent Hopitalizations: No Recent Infectious Disease Expo: No Physical Abuse Screen: No Sexual Abuse: No Immunizations Up To Date Tetanus Booster (TDap): Unknown Date of Pneumonia Vaccine: Jul 28, 2012 Date of Influenza Vaccine: Aug 03, 2018 Past Medical History PMHx: Chronic interstitial lung disease - hypersensitivity pneumonitis HTN HLD DMII CAD s/p stenting x 2 2011, 2012 gout HILDA on c-pap GERD hx of A-fib w/ RVR ([id number] VASc score of 2) - on Eliquis COPD PSurgHx: Cholecystectomy Appendectomy Tonsillectomy umbilical hernia repair kidney stone removed eye surgery as a child Family Medical History Significant Family History: Lung Disease Family History: Arthritis 19 FATHER Respiratory disorder 19 FATHER 19 MOTHER Thyroid disease 19 MOTHER No Family History of: AIDS Abdominal aortic aneurysm Alcoholism Alzheimer's disease Asthma Cardiovascular disease Dementia Diabetes mellitus Drug abuse Hypertension Kidney disease Myocardial infarction Parkinson's disease Psychosocial problem Seizure disorder Review of Systems (CHC) Constitutional: see HPI Reviewed Test Results Reviewed Test Results Lab Laboratory Tests 10/22/18 07:40: White Blood Count 10.4, Red Blood Count 4.06L, Hemoglobin 11.7L, Hematocrit 35L , Mean Corpuscular Volume 87, Mean Corpuscular Hemoglobin 29, Mean Corpuscular Hemoglobin Concent 33, Red Cell Distribution Width 14.7H, Platelet Count 284, Mean Platelet Volume 9.6, Neutrophils (%) (Auto) 71, Lymphocytes (%) (Auto) 16, Monocytes (%) (Auto) 9, Eosinophils (%) (Auto) 4, Basophils (%) (Auto) 1, Neutrophils # (Auto) 7.4, Lymphocytes # (Auto) 1.6, Monocytes # (Auto) 0.9, Eosinophils # (Auto) 0.4H, Basophils # (Auto) 0.1, Prothrombin Time 17.7H, INR Comment 1.5H, Activated Partial Thromboplast Time 35, Sodium Level 137, Potassium Level 4.1, Chloride Level 105, Carbon Dioxide Level 20L, Anion Gap 12 , Blood Urea Nitrogen 22H, Creatinine 0.79, Estimat Glomerular Filtration Rate > 60, BUN/Creatinine Ratio 28, Glucose Level 188H, Lactic Acid Level 2.18*H, Calcium Level 9.5, Corrected Calcium 9.7, Total Bilirubin 0.6, Aspartate Amino Transf (AST/SGOT) 24, Alanine Aminotransferase (ALT/SGPT) 25, Alkaline Phosphatase 73, B-Type Natriuretic Peptide 39.5, Total Protein 7.3, Albumin 3.8 10/22/18 08:34: Urine Color YELLOW, Urine Clarity CLEAR, Urine pH 6, Urine Specific [place] 1.015L, Urine Protein 2+H, Urine Glucose (UA) NEGATIVE, Urine Ketones NEGATIVE, Urine Nitrite NEGATIVE, Urine Bilirubin NEGATIVE, Urine Urobilinogen 1, Urine Leukocyte Esterase NEGATIVE, Urine RBC (Auto) 3+H, Urine RBC 0-2, Urine WBC NONE , Urine Squamous Epithelial Cells NONE, Urine Crystals NONE, Urine Bacteria NEGATIVE, Urine Casts NONE, Urine Mucus NEGATIVE, Urine Culture Indicated NO, Urine Legionella pneumophilia Ag Negative, Streptococcus pneumoniae Antigen Negative 10/22/18 10:27: Lactic Acid Level 1.21 10/22/18 11:30: Blood Gas Puncture Site L RADIAL, Blood Gas Patient Temperature 98.2, Arterial Blood pH 7.38, Arterial Blood Partial Pressure CO2 39, Arterial Blood Partial Pressure O2 130H, Arterial Blood HCO3 23, Arterial Blood Total CO2 23.8, Arterial Blood Oxygen Saturation 99, Arterial Blood Base Excess -1.8, Hiro Test YES-POS, Blood Gas Ventilator Setting NA, Blood Gas Inspired Oxygen 10 10/22/18 16:08: Glucometer 141H 10/23/18 04:02: White Blood Count 6.9, Red Blood Count 3.53L, Hemoglobin 9.8L, Hematocrit 32L, Mean Corpuscular Volume 90, Mean Corpuscular Hemoglobin 28, Mean Corpuscular Hemoglobin Concent 31L, Red Cell Distribution Width 14.5, Platelet Count 198, Mean Platelet Volume 9.5, Neutrophils (%) (Auto) 61, Lymphocytes (%) (Auto) 20, Monocytes (%) (Auto) 13H, Eosinophils (%) (Auto) 5, Basophils (%) (Auto) 1, Neutrophils # (Auto) 4.3, Lymphocytes # (Auto) 1.4, Monocytes # (Auto) 0.9, Eosinophils # (Auto) 0.4H, Basophils # (Auto) 0.0, Sodium Level 142, Potassium Level 3.4L, Chloride Level 111H, Carbon Dioxide Level 20L, Anion Gap 11, Blood Urea Nitrogen 13, Creatinine 0.60, Estimat Glomerular Filtration Rate > 60, BUN/ Creatinine Ratio 22, Glucose Level 114H, Calcium Level 8.1L, Corrected Calcium 8.8, Phosphorus Level 2.3, Magnesium Level 1.1L, Total Bilirubin 0.6, Aspartate Amino Transf (AST/SGOT) 31, Alanine Aminotransferase (ALT/SGPT) 28, Alkaline Phosphatase 59, Total Protein 6.1L, Albumin 3.1L 10/23/18 10:50: Glucometer 312H 10/23/18 13:16: Glucometer 255H Physical Exam-(CHC) Physical Exam Vital Signs VS - Last 72 Hours, by Label 10/22/18 10/22/18 10/22/18 10/22/18 07:40 08:30 10:30 10:30 Temp 101.0 98.2 Pulse 122 86 Resp 20 12 B/P (MAP) 127/77 (94) 110/73 (85) Pulse Ox 97 97 96 O2 Delivery OxyMask OxyMask OxyMask OxyMask O2 Flow Rate 6.00 6.00 6.00 6.00 10/22/18 10/22/18 10/22/18 12/27/18 10:40 10:45 10:58 11:00 Pulse 93 88 87 Resp 20 22 B/P (MAP) 108/68 (81) 110/73 (85) Pulse Ox 97 96 O2 Delivery OxyMask OxyMask High Flow N/C O2 Flow Rate 6.00 6.00 10.00 10/22/18 10/22/18 10/22/18 10/22/18 11:00 11:15 11:30 11:52 Temp 97.5 Pulse 89 87 85 Resp 19 14 18 B/P (MAP) 103/62 (76) 110/77 (88) 114/78 (90) Pulse Ox 98 100 99 O2 Delivery High Flow N/C High Flow N/C High Flow N/C High Flow N/C O2 Flow Rate 10.00 10.00 10.00 8.00 10/22/18 10/22/18 10/22/18 10/22/18 12:00 12:00 13:01 13:01 Pulse 93 84 87 Resp 21 17 B/P (MAP) 114/59 (77) 117/75 (89) Pulse Ox 99 99 92 O2 Delivery High Flow N/C High Flow N/C High Flow N/C O2 Flow Rate 8.00 8.00 8.00 10/22/18 10/22/18 10/22/18 10/22/18 13:20 14:00 14:45 15:00 Pulse 86 92 Resp 23 20 B/P (MAP) 104/70 (81) 125/87 (100) Pulse Ox 94 93 95 O2 Delivery High Flow N/C High Flow N/C Nasal Cannula High Flow N/C O2 Flow Rate 6.00 6.00 6.00 6.00 10/22/18 10/22/18 10/22/18 10/22/18 16:00 16:00 16:05 16:15 Temp 98.4 Pulse 96 Resp 38 B/P (MAP) 145/76 (99) Pulse Ox 88 92 O2 Delivery High Flow N/C High Flow N/C High Flow N/C O2 Flow Rate 6.00 6.00 12.00 10/22/18 10/22/18 10/22/18 10/22/18 16:59 17:00 17:07 17:26 Pulse 103 Resp 37 B/P (MAP) 159/80 (106) Pulse Ox 78 99 100 O2 Delivery Vapotherm Vapotherm Vapotherm Vapotherm O2 Flow Rate 100.00 100.00 100.00 100.00 40.00 40.00 30.00 25.00 10/22/18 10/22/18 10/22/18 10/22/18 18:00 18:59 19:00 19:00 Pulse 106 108 108 Resp 21 27 B/P (MAP) 140/84 (102) 136/84 (101) Pulse Ox 99 98 98 O2 Delivery Vapotherm Vapotherm Vapotherm O2 Flow Rate 100.00 25.00 100.00 25.00 25.00 FiO2 100 10/22/18 10/22/18 10/22/18 10/22/18 19:05 19:46 20:00 20:00 Temp 100.0 Pulse 116 Resp 24 B/P (MAP) 141/87 (105) Pulse Ox 94 94 95 O2 Delivery Vapotherm Vapotherm Vapotherm O2 Flow Rate 80.00 25.00 80.00 25.00 25.00 FiO2 80 10/22/18 10/22/18 10/22/18 10/22/18 21:00 22:00 22:23 23:00 Pulse 105 94 84 Resp 29 30 24 B/P (MAP) 136/80 (98) 125/85 (98) 128/70 (89) Pulse Ox 91 99 98 100 O2 Delivery Vapotherm Vapotherm Vapotherm Vapotherm O2 Flow Rate 80.00 80.00 25.00 80.00 25.00 25.00 25.00 FiO2 80 10/22/18 10/23/18 10/23/18 10/23/18 23:40 00:00 00:00 01:00 Temp 97.8 Pulse 82 90 Resp 27 B/P (MAP) 118/76 (90) Pulse Ox 98 98 O2 Delivery Vapotherm Vapotherm O2 Flow Rate 25.00 80.00 25.00 FiO2 80 10/23/18 10/23/18 10/23/18 10/23/18 01:00 02:00 02:19 03:00 Pulse 90 84 93 Resp 28 30 31 B/P (MAP) 105/62 (76) 116/75 (89) 116/72 (87) Pulse Ox 98 97 93 95 O2 Delivery Vapotherm Vapotherm Vapotherm Vapotherm O2 Flow Rate 80.00 80.00 25.00 80.00 25.00 25.00 25.00 FiO2 80 10/23/18 10/23/18 10/23/18 10/23/18 03:53 04:00 04:00 05:00 Temp 98.4 Pulse 87 88 Resp 34 32 B/P (MAP) 129/73 (91) 140/88 (105) Pulse Ox 96 96 O2 Delivery Vapotherm Vapotherm Vapotherm O2 Flow Rate 80.00 25.00 80.00 25.00 25.00 FiO2 80 10/23/18 10/23/18 10/23/18 10/23/18 06:00 06:51 07:00 07:11 Pulse 117 100 101 Resp 14 21 B/P (MAP) 158/98 (118) 142/81 (101) Pulse Ox 96 96 O2 Delivery Vapotherm Vapotherm Vapotherm O2 Flow Rate 80.00 25.00 80.00 25.00 25.00 FiO2 80 10/23/18 10/23/18 10/23/18 10/23/18 07:11 08:00 08:00 08:20 Temp 99.5 Pulse 105 Resp 11 B/P (MAP) 110/83 (92) Pulse Ox 98 98 O2 Delivery Vapotherm Vapotherm Vapotherm O2 Flow Rate 80.00 25.00 80.00 25.00 25.00 FiO2 80 10/23/18 10/23/18 10/23/18 10/23/18 09:00 10:00 10:37 11:00 Temp 98.9 98.9 Pulse 105 Resp 8 B/P (MAP) 126/84 (98) Pulse Ox 99 99 O2 Delivery Vapotherm Vapotherm O2 Flow Rate 80.00 25.00 25.00 FiO2 80 10/23/18 10/23/18 10/23/18 12:00 12:00 13:00 Temp 98.9 98.8 Pulse Ox 98 O2 Delivery Vapotherm O2 Flow Rate 25.00 FiO2 80 Capillary Refill : Less Than 3 Seconds General Appearance: WD/WN, mild distress (conversational dyspnea, mild) HEENT: PERRL/EOMI Respiratory: decreased breath sounds, accessory muscle use, crackles (mild); No rales, No rhonchi Cardiovascular: regular rate, rhythm, no edema Neurologic/Psychiatric: alert, normal mood/affect, oriented x 3 Skin: normal color, warm/dry Assessment/Plan Assessment/Plan Admission Dx 1. Acute pneumonia 2. Acute respiratory distress w/ hypoxia 3. Severe sepsis without septic shock 4. AECOPD Admission Status: Inpatient Order (span 2 midnights) Reason for Inpatient Admission: ICU admission for respiratory distress Assessment & Plan 1. Acute pneumonia bilateral - Patient admitted to ICU; Dr. Hightower consulted - on Cefepime 10/23 - CXR worsened - worsening pneumonia vs developing ARDS? 2. Acute respiratory distress w/ hypoxia 10/23 - currently 96% on Vapotherm 25 80% FIO2 3. Severe sepsis without septic shock - hypotension improved with 30mL/kg bolus - LA 2.18 --> 1.21 - flu negative 4. 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 Electrolyte abnormalities - K, Mg being replaced Clinical Quality Measures DVT/VTE Risk/Contraindication: Risk Factor Score Per Nursin RFS Level Per Nursing on Admit: 4+=Very High ANTONIO GONZALEZ DO Oct 23, 2018 13:24
[2018-10-23] MEDS: NOREPINEPHRINE 4 MG in NS (IVPB) 250 ML IV SCH (15:19)
[2018-10-24] VITALS (24 sets, daily range): BP systolic 105–157; BP diastolic 63–105
[2018-10-24] MEDS: methylPREDNISolone 40 MG/ML (Solu-MEDROL) VIAL IV SCH ×4 (01:16→17:09)
[2018-10-24] MEDS: RT-ALBUTEROL SULF 2.5 MG/3 ML PRE-MIX VIAL INH SCH ×6 (01:27→21:50)
[2018-10-24] MEDS: CEFEPIME 1 GM/NS 50 ML IV SCH ×8 (02:50→20:44)
[2018-10-24 04:18] LABS: BASOPHILS % (AUTO) 0 % (0-10); EOSINOPHILS % (AUTO) 0 % (0-10); HEMATOCRIT 33 % (40-54); HEMOGLOBIN 10.6 G/DL (13.3-17.7); LYMPHOCYTES # (AUTO) 0.6 X 10^3 (1.0-4.0); LYMPHOCYTES % (AUTO) 8 % (12-44); MEAN CORPUSCULAR HEMOGLOBIN 28 PG (25-34); MEAN CORPUSCULAR HGB CONC 33 G/DL (32-36); MEAN CORPUSCULAR VOLUME 87 FL (80-99); MEAN PLATELET VOLUME 9.3 FL (7.4-10.4); MONOCYTES # (AUTO) 0.4 X 10^3 (0.0-1.0); MONOCYTES % (AUTO) 5 % (0-12); NEUTROPHILS # (AUTO) 6.8 X 10^3 (1.8-7.8); NEUTROPHILS % (AUTO) 86 % (42-75); PLATELET COUNT 234 10^3/uL (130-400); RED BLOOD COUNT 3.74 10^6/uL (4.35-5.85); RED CELL DISTRIBUTION WIDTH 14.3 % (10.0-14.5); WHITE BLOOD COUNT 7.9 10^3/uL (4.3-11.0)
[2018-10-24 04:42] LABS: ALANINE AMINOTRANSFERASE 28 U/L (0-55); ALBUMIN 3.5 GM/DL (3.2-4.5); ALKALINE PHOSPHATASE 67 U/L (40-136); BILIRUBIN,TOTAL 0.5 MG/DL (0.1-1.0); BUN/CREATININE RATIO 33; CARBON DIOXIDE 19 MMOL/L (21-32); CHLORIDE 106 MMOL/L (98-107); GFR ESTIMATED > 60; GLUCOSE 256 MG/DL (70-105); MAGNESIUM 1.9 MG/DL (1.8-2.4); PHOSPHORUS 2.8 MG/DL (2.3-4.7); POTASSIUM 3.8 MMOL/L (3.6-5.0); SODIUM 139 MMOL/L (135-145); TOTAL PROTEIN 7.1 GM/DL (6.4-8.2)
--- NOTE | 2018-10-24 06:00 | Pulmonary Progress Note ---
Subjective Time Seen by a Provider: 05:59 Subjective/Events-last exam Pt feels improved today. Sepsis Event Evaluation Height, Weight, BMI Height: 5'6.00" Weight: 185lbs. 4.0oz. 84.173781ps; 30.1 BMI Method:Stated Focused Exam Lactate Level 10/22/18 07:40: Lactic Acid Level 2.18*H 10/22/18 10:27: Lactic Acid Level 1.21 Time of Focused Exam: 09:00 Exam Exam Vital Signs Date Time Temp Pulse Resp B/P (MAP) Pulse Ox O2 Delivery O2 Flow Rate FiO2 10/24/18 04:00 98 Vapotherm 22.00 50 10/24/18 04:00 92 14 123/65 (84) 95 Vapotherm 50.00 25.00 10/24/18 03:00 87 21 117/63 (81) 94 Vapotherm 50.00 25.00 10/24/18 02:00 92 22 126/63 (84) 94 Vapotherm 50.00 25.00 10/24/18 01:30 98 13 99 Vapotherm 50.00 25.00 10/24/18 01:27 96 Vapotherm 25.00 55 10/24/18 01:00 79 21 126/67 (86) 98 Vapotherm 55.00 25.00 10/24/18 01:00 81 10/24/18 00:00 92 23 132/77 (95) 96 Vapotherm 55.00 25.00 10/24/18 00:00 98 Vapotherm 22.00 50 10/23/18 23:00 99 19 132/75 (94) 96 Vapotherm 55.00 25.00 10/23/18 22:00 104 27 152/95 (114) 95 Vapotherm 55.00 25.00 10/23/18 21:35 98 30 95 Vapotherm 55.00 25.00 10/23/18 21:30 97 Vapotherm 25.00 65 10/23/18 21:00 89 25 144/90 (108) 97 Vapotherm 65.00 25.00 10/23/18 20:00 98 Vapotherm 25.00 65 10/23/18 20:00 101 21 138/83 (101) 97 Vapotherm 65.00 25.00 10/23/18 19:00 98 24 150/78 (102) 96 Vapotherm 65.00 25.00 10/23/18 19:00 101 10/23/18 18:32 100 Vapotherm 25.00 75 10/23/18 18:00 110 20 152/81 (104) 91 Vapotherm 75.00 25.00 10/23/18 17:00 89 24 154/81 (105) 100 Vapotherm 75.00 25.00 10/23/18 16:00 98 Vapotherm 25.00 80 10/23/18 16:00 96 26 136/71 (92) 98 Vapotherm 75.00 25.00 10/23/18 15:00 101 42 148/84 (105) Vapotherm 75.00 25.00 10/23/18 15:00 98.4 10/23/18 14:00 104 14 147/77 (100) 91 Vapotherm 75.00 25.00 10/23/18 14:00 98.4 10/23/18 13:48 99 Vapotherm 25.00 80 10/23/18 13:09 92 10/23/18 13:00 98.8 10/23/18 13:00 87 23 137/80 (99) Vapotherm 80.00 25.00 10/23/18 12:00 98.9 10/23/18 12:00 98 Vapotherm 25.00 80 10/23/18 12:00 95 35 139/82 (101) 99 Vapotherm 80.00 25.00 10/23/18 11:00 103 24 141/84 (103) Vapotherm 80.00 25.00 10/23/18 11:00 98.9 10/23/18 10:37 99 Vapotherm 25.00 80 10/23/18 10:00 98.9 10/23/18 10:00 97 17 132/72 (92) 100 Vapotherm 80.00 25.00 10/23/18 09:00 105 8 126/84 (98) 99 Vapotherm 80.00 25.00 10/23/18 08:20 99.5 10/23/18 08:00 105 11 110/83 (92) 98 Vapotherm 80.00 25.00 10/23/18 08:00 98 Vapotherm 25.00 80 10/23/18 07:11 Vapotherm 80.00 25.00 10/23/18 07:11 101 10/23/18 07:00 100 21 142/81 (101) 96 Vapotherm 80.00 25.00 10/23/18 06:51 96 Vapotherm 25.00 80 10/23/18 06:00 117 14 158/98 (118) Vapotherm 80.00 25.00 I & O 10/24/18 07:00 Intake Total 2090 ml Output Total 2650 ml Balance -560 ml Height & Weight Height: 5'6.00" Weight: 185lbs. 4.0oz. 84.404672mq; 30.1 BMI Method:Stated General Appearance: WD/WN, Anxious, Mild Distress HEENT: PERRL/EOMI, Normal ENT Inspection, Other (Mucous membranes somewhat dry) Neck: Normal Inspection Respiratory: Accessory Muscle Use, Crackles, Decreased Breath Sounds Cardiovascular: Regular Rate, Rhythm Capillary Refill: Less Than 3 Seconds Gastrointestinal: normal bowel sounds, non tender, soft, no organomegaly Extremity: Normal Capillary Refill, Normal Inspection, Non Tender, No Calf Tenderness, No Pedal Edema, Other (Negative Kemar) Neurologic/Psychiatric: Alert, Oriented x3, No Motor/Sensory Deficits, Normal 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, 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 Norm as Tested Skin: Normal Color, Warm/Dry Results Lab Laboratory Tests 10/22/18 07:40 10/23/18 04:02 10/24/18 03:52 Assessment/Plan Assessment/Plan Acute respiratory failure -Atypical pneumonia - Acute atypical pneumonia with hypoxia and atelectasis with severe sepsis -CXR is improving -Place Johnson catheter -Continue cefepime -Solumedrol -Samson cultures pending -Strep/legionella ag are negative -MRSA nasal swab -IVF KVO COPDAE -SVNS Q4 -solumedrol (eosinophils are slightly elevated on CBC) Hx of Paroxysmal Afib - currently sinus -Hold Eliquis for now HILDA -Has home CPAP Hypokalemia/hypomag -replace Anemia -Check occult stool -Will hold eliquis however start Lovenox PPX dose 40mg sub q daily -Monitor CAD hx DOUG SAMUEL DO Oct 24, 2018 05:59
[2018-10-24] MEDS: inSUlin ASPART (NovoLOG) 1 UNIT/0.01 ML (CHARGE PER UNIT) SQ SCH ×4 (07:07→20:47)
[2018-10-24] MEDS: KCL 20 MEQ TAB (K-DUR) PO SCH (07:07)
[2018-10-24] MEDS: MAGNESIUM 1 GM/100 ML IVPB 100 ML IV SCH (07:07)
[2018-10-24] MEDS: POTASSIUM CL 10MEQ/50ML IVPB 50 ML IV SCH (07:08)
[2018-10-24] MEDS: NOREPINEPHRINE 4 MG in NS (IVPB) 250 ML IV SCH ×2 (07:08→16:32)
[2018-10-24] MEDS: VASOPRESSIN INJECTION 20 UNIT in NS (IVPB) 100 ML IV SCH ×2 (07:08→12:46)
[2018-10-24] MEDS: ENOXAPARIN 40 MG/0.4 ML (LOVENOX) SYR SC SCH (08:00)
[2018-10-24] MEDS: PANTOPRAZOLE 40 MG (PROTONIX) VIAL IV SCH (08:00)
--- NOTE | 2018-10-24 08:14 | Diagnostic Imaging Report ---
Indication: Dyspnea. Upright portable chest shows cardiomegaly with normal vascularity. There has been partial clearing of the bilateral infiltrates since 10/23/2018. Some interstitial infiltrates remain. There is no effusion or pneumothorax. Impression: Improving infiltrates. Dictated by: Dictated on workstation # [id number]
[2018-10-24] MEDS ORDERED: inSUlin DETERMIR 1 UNIT/0.01 ML (LEVEMIR) CHARGE PER UNIT SQ SCH (09:00)
[2018-10-24] MEDS: NS IV 1000 ML 1,000 ML IV SCH (11:25)
--- NOTE | 2018-10-24 13:56 | Progress Note (SOAP) ---
Subjective Subjective/Events-last exam Patient is doing better. Weaning Vapotherm. BS running high. Review of Systems Date Seen by Provider: Oct 24, 2018 Time Seen by Provider: 07:45 Focused Exam Lactate Level 10/22/18 07:40: Lactic Acid Level 2.18*H 10/22/18 10:27: Lactic Acid Level 1.21 Time of Focused Exam: 09:00 Objective Exam Last Set of Vital Signs Vital Signs Date Time Temp Pulse Resp B/P (MAP) Pulse Ox O2 Delivery O2 Flow Rate FiO2 10/24/18 13:18 21 10/24/18 13:00 28 131/75 (93) Vapotherm 45.00 20.00 10/24/18 12:00 98 45 10/24/18 12:00 98.9 Capillary Refill : Less Than 3 Seconds I&O Intake and Output 10/24/18 00:00 Intake Total 3040 ml Output Total 3825 ml Balance -785 ml Intake Oral 1340 ml IV Total 1700 ml Output Urine Total 3825 ml General: Alert, Oriented X3, Cooperative Psych/Mental Status: Mood NL Results/Procedures Lab Laboratory Tests 10/23/18 21:50: Glucometer 294H 10/24/18 03:52: White Blood Count 7.9, Red Blood Count 3.74L, Hemoglobin 10.6L, Hematocrit 33L, Mean Corpuscular Volume 87, Mean Corpuscular Hemoglobin 28, Mean Corpuscular Hemoglobin Concent 33, Red Cell Distribution Width 14.3, Platelet Count 234, Mean Platelet Volume 9.3, Neutrophils (%) (Auto) 86H, Lymphocytes (%) (Auto) 8L , Monocytes (%) (Auto) 5, Eosinophils (%) (Auto) 0, Basophils (%) (Auto) 0, Neutrophils # (Auto) 6.8, Lymphocytes # (Auto) 0.6L, Monocytes # (Auto) 0.4, Eosinophils # (Auto) 0.0, Basophils # (Auto) 0.0, Sodium Level 139, Potassium Level 3.8, Chloride Level 106, Carbon Dioxide Level 19L, Anion Gap 14, Blood Urea Nitrogen 23H, Creatinine 0.70, Estimat Glomerular Filtration Rate > 60, BUN /Creatinine Ratio 33, Glucose Level 256H, Calcium Level 9.0, Corrected Calcium 9.4, Phosphorus Level 2.8, Magnesium Level 1.9, Total Bilirubin 0.5, Aspartate Amino Transf (AST/SGOT) 19, Alanine Aminotransferase (ALT/SGPT) 28, Alkaline Phosphatase 67, Total Protein 7.1, Albumin 3.5 10/24/18 09:32: Glucometer 345H 10/24/18 12:25: Glucometer 365H Microbiology 10/22/18 Blood Culture - Preliminary, Resulted No growth 10/22/18 Influenza Types A,B Antigen (VICENTE) - Final, Complete 10/22/18 Urine Culture - Final, Complete NO GROWTH Assessment/Plan Assessment/Plan Assessment & Plan 1. Acute pneumonia bilateral - Patient admitted to ICU; Dr. Hightower consulted - on Cefepime 10/23 - CXR worsened - worsening pneumonia vs developing ARDS? 10/24 - improved CXR and symptoms 2. Acute respiratory distress w/ hypoxia 10/23 - currently 96% on Vapotherm 25 80% FIO2 10/24 - weaning, now of 50% 3. Severe sepsis without septic shock - hypotension improved with 30mL/kg bolus - LA 2.18 --> 1.21 - flu negative 4. 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 Electrolyte abnormalities - K, Mg being replaced 6. DM Type 2 - BS running high likely secondary to steroids, will add Levemir 10 units while pt is in the hospital. - on Trulicity and Metformin as OP Disp: 10/24 - Transferring to step-down status per Dr. Hightower Clinical Quality Measures DVT/VTE Risk/Contraindication: Risk Factor Score Per Nursin RFS Level Per Nursing on Admit: 4+=Very High ANTONIO GONZALEZ DO Oct 24, 2018 13:55
[2018-10-24] MEDS ORDERED: inSUlin ASPART (NovoLOG) 1 UNIT/0.01 ML (CHARGE PER UNIT) SC ONE (20:30)
[2018-10-24] MEDS: inSUlin DETERMIR 1 UNIT/0.01 ML (LEVEMIR) CHARGE PER UNIT SQ SCH (20:44)
[2018-10-25] VITALS (13 sets, daily range): BP systolic 123–154; BP diastolic 66–88
[2018-10-25] MEDS: methylPREDNISolone 40 MG/ML (Solu-MEDROL) VIAL IV SCH ×5 (00:39→23:42)
[2018-10-25] MEDS: RT-ALBUTEROL SULF 2.5 MG/3 ML PRE-MIX VIAL INH SCH ×6 (01:59→22:04)
[2018-10-25] MEDS: CEFEPIME 1 GM/NS 50 ML IV SCH ×8 (03:18→20:34)
[2018-10-25 03:43] LABS: BASOPHILS % (AUTO) 0 % (0-10); EOSINOPHILS % (AUTO) 0 % (0-10); HEMATOCRIT 31 % (40-54); LYMPHOCYTES # (AUTO) 0.8 X 10^3 (1.0-4.0); LYMPHOCYTES % (AUTO) 14 % (12-44); MEAN CORPUSCULAR HEMOGLOBIN 28 PG (25-34); MEAN CORPUSCULAR HGB CONC 32 G/DL (32-36); MEAN CORPUSCULAR VOLUME 88 FL (80-99); MEAN PLATELET VOLUME 9.4 FL (7.4-10.4); MONOCYTES # (AUTO) 0.4 X 10^3 (0.0-1.0); MONOCYTES % (AUTO) 6 % (0-12); NEUTROPHILS # (AUTO) 4.8 X 10^3 (1.8-7.8); NEUTROPHILS % (AUTO) 80 % (42-75); PLATELET COUNT 235 10^3/uL (130-400); RED BLOOD COUNT 3.53 10^6/uL (4.35-5.85); RED CELL DISTRIBUTION WIDTH 13.9 % (10.0-14.5); WHITE BLOOD COUNT 5.9 10^3/uL (4.3-11.0)
[2018-10-25 04:04] LABS: ALANINE AMINOTRANSFERASE 24 U/L (0-55); ALBUMIN 3.3 GM/DL (3.2-4.5); ALKALINE PHOSPHATASE 60 U/L (40-136); BILIRUBIN,TOTAL 0.3 MG/DL (0.1-1.0); BUN/CREATININE RATIO 45; CALCIUM 8.9 MG/DL (8.5-10.1); CARBON DIOXIDE 20 MMOL/L (21-32); CHLORIDE 108 MMOL/L (98-107); CREATININE SERUM 0.71 MG/DL (0.60-1.30); GFR ESTIMATED > 60; GLUCOSE 233 MG/DL (70-105); MAGNESIUM 1.9 MG/DL (1.8-2.4); PHOSPHORUS 2.3 MG/DL (2.3-4.7); POTASSIUM 3.7 MMOL/L (3.6-5.0); SODIUM 139 MMOL/L (135-145); TOTAL PROTEIN 6.5 GM/DL (6.4-8.2)
--- NOTE | 2018-10-25 05:52 | Diagnostic Imaging Report ---
INDICATION: Dyspnea Upright portable chest shows cardiomegaly with normal vascularity. There are patchy bilateral infiltrates. There is bibasilar atelectasis. There is no effusion or pneumothorax. There is no significant change from 10/24/2018. IMPRESSION: Stable chest. Dictated by: Dictated on workstation # [id number]
--- NOTE | 2018-10-25 05:54 | Pulmonary Progress Note ---
Subjective Time Seen by a Provider: 05:53 Subjective/Events-last exam PT appears to be improving Sepsis Event Evaluation Height, Weight, BMI Height: 5'6.00" Weight: 185lbs. 4.0oz. 84.282247te; 30.1 BMI Method:Stated Focused Exam Lactate Level 10/22/18 07:40: Lactic Acid Level 2.18*H 10/22/18 10:27: Lactic Acid Level 1.21 Time of Focused Exam: 09:00 Exam Exam Vital Signs Date Time Temp Pulse Resp B/P (MAP) Pulse Ox O2 Delivery O2 Flow Rate FiO2 10/25/18 05:00 72 18 125/77 (93) 95 Vapotherm 45.00 18.00 10/25/18 04:00 72 19 123/71 (88) 94 Vapotherm 45.00 18.00 10/25/18 04:00 98 Vapotherm 18.00 45 10/25/18 03:00 70 15 128/73 (91) 93 Vapotherm 45.00 18.00 10/25/18 02:00 75 22 140/88 (105) 96 Vapotherm 45.00 18.00 10/25/18 01:59 96 Vapotherm 18.00 45 10/25/18 01:00 73 21 126/73 (90) 93 Vapotherm 45.00 18.00 10/25/18 01:00 70 10/25/18 00:00 61 18 146/87 (106) 95 Vapotherm 45.00 18.00 10/25/18 00:00 98 Vapotherm 18.00 45 10/24/18 23:00 83 21 126/75 (92) 95 Vapotherm 45.00 18.00 10/24/18 22:00 82 23 145/77 (99) 92 Vapotherm 45.00 18.00 10/24/18 21:50 94 Vapotherm 18.00 45 10/24/18 21:00 82 23 145/77 (99) 92 Vapotherm 45.00 18.00 10/24/18 20:00 93 19 141/81 (101) 94 Vapotherm 45.00 18.00 10/24/18 20:00 98 Vapotherm 18.00 45 10/24/18 19:00 82 19 139/90 (106) 93 Vapotherm 45.00 18.00 10/24/18 19:00 86 10/24/18 18:57 91 Vapotherm 18.00 45 10/24/18 18:00 70 22 122/70 (87) Vapotherm 45.00 20.00 10/24/18 17:00 98.2 10/24/18 17:00 85 22 138/90 (106) Vapotherm 45.00 20.00 10/24/18 16:00 98.6 10/24/18 16:00 79 22 135/85 (102) Vapotherm 45.00 20.00 10/24/18 15:00 90 24 153/74 (100) Vapotherm 45.00 20.00 10/24/18 15:00 98.6 10/24/18 15:00 98 Vapotherm 20.00 45 10/24/18 14:06 95 Vapotherm 18.00 45 10/24/18 14:00 96 12 157/82 (107) Vapotherm 45.00 20.00 10/24/18 13:18 21 10/24/18 13:00 81 28 131/75 (93) Vapotherm 45.00 20.00 10/24/18 12:00 98 Vapotherm 20.00 45 10/24/18 12:00 98.9 10/24/18 12:00 86 21 137/82 (100) Vapotherm 45.00 20.00 10/24/18 11:00 105 24 106/73 (84) 96 Vapotherm 45.00 20.00 10/24/18 10:00 107 21 105/81 (89) 98 Vapotherm 45.00 20.00 10/24/18 09:58 97 Vapotherm 20.00 45 10/24/18 09:00 98 31 135/74 (94) 96 Vapotherm 50.00 25.00 10/24/18 08:00 98 Vapotherm 22.00 50 10/24/18 08:00 82 21 133/83 (100) 96 Vapotherm 50.00 25.00 10/24/18 07:08 89 10/24/18 07:00 93 23 153/91 (111) 96 Vapotherm 50.00 25.00 10/24/18 07:00 98.9 10/24/18 06:10 96 Vapotherm 22.00 50 10/24/18 06:00 106 13 154/95 (114) 96 Vapotherm 50.00 25.00 I & O 10/25/18 07:00 Intake Total 1050 ml Output Total 1550 ml Balance -500 ml Height & Weight Height: 5'6.00" Weight: 185lbs. 4.0oz. 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 Norm as Tested Skin: Normal Color, Warm/Dry Results Lab Laboratory Tests 10/24/18 03:52 10/25/18 03:15 Assessment/Plan Assessment/Plan Acute respiratory failure -Atypical pneumonia - Acute atypical pneumonia with hypoxia and atelectasis with severe sepsis -CXR is improving -DC Johnson catheter -Continue cefepime -Solumedrol -Samson cultures pending -Strep/legionella ag are negative -MRSA nasal swab -IVF KVO COPDAE -SVNS Q4 -solumedrol (eosinophils are slightly elevated on CBC) Hx of Paroxysmal Afib - currently sinus -Restart Eliquis HILDA -Has home CPAP Anemia -Check occult stool -Will hold eliquis however start Lovenox PPX dose 40mg sub q daily -Monitor CAD hx DOUG SAMUEL DO Oct 25, 2018 05:54
[2018-10-25] MEDS: inSUlin ASPART (NovoLOG) 1 UNIT/0.01 ML (CHARGE PER UNIT) SQ SCH ×4 (06:57→21:39)
[2018-10-25] MEDS: PANTOPRAZOLE 40 MG (PROTONIX) VIAL IV SCH (08:06)
[2018-10-25] MEDS: inSUlin DETERMIR 1 UNIT/0.01 ML (LEVEMIR) CHARGE PER UNIT SQ SCH ×2 (08:06→21:39)
[2018-10-25] MEDS: APIXABAN 5 MG (ELIQUIS) TABLET PO SCH ×2 (08:06→20:34)
--- NOTE | 2018-10-25 15:00 | NUR ---
ASSUMED CARE OF PT AT THIS TIME FROM FLORENCIA LANDRY.
--- NOTE | 2018-10-25 17:18 | Progress Note (SOAP) ---
Subjective Subjective/Events-last exam Pt continues to improve. Being transferred to the floor. Review of Systems Date Seen by Provider: Oct 25, 2018 Time Seen by Provider: 09:15 Focused Exam Time of Focused Exam: 09:00 Objective Exam Last Set of Vital Signs Vital Signs Date Time Temp Pulse Resp B/P (MAP) Pulse Ox O2 Delivery O2 Flow Rate FiO2 10/25/18 15:00 Nasal Cannula 4.00 10/25/18 15:00 94 10/25/18 13:00 76 10/25/18 13:00 97.1 16 130/82 (98) 10/25/18 08:00 45 Capillary Refill : Less Than 3 SecondsLess Than 3 Seconds I&O Intake and Output 10/25/18 00:00 Intake Total 1150 ml Output Total 1675 ml Balance -525 ml Intake Oral 1150 ml Output Urine Total 1675 ml General: Alert, Oriented X3, Cooperative Psych/Mental Status: Mood NL Results/Procedures Lab Laboratory Tests 10/24/18 20:09: Glucometer 431*H 10/25/18 03:15: White Blood Count 5.9, Red Blood Count 3.53L, Hemoglobin 10.0L, Hematocrit 31L, Mean Corpuscular Volume 88, Mean Corpuscular Hemoglobin 28, Mean Corpuscular Hemoglobin Concent 32, Red Cell Distribution Width 13.9, Platelet Count 235, Mean Platelet Volume 9.4, Neutrophils (%) (Auto) 80H, Lymphocytes (%) (Auto) 14 , Monocytes (%) (Auto) 6, Eosinophils (%) (Auto) 0, Basophils (%) (Auto) 0, Neutrophils # (Auto) 4.8, Lymphocytes # (Auto) 0.8L, Monocytes # (Auto) 0.4, Eosinophils # (Auto) 0.0, Basophils # (Auto) 0.0, Sodium Level 139, Potassium Level 3.7, Chloride Level 108H, Carbon Dioxide Level 20L, Anion Gap 11, Blood Urea Nitrogen 32H, Creatinine 0.71, Estimat Glomerular Filtration Rate > 60, BUN /Creatinine Ratio 45, Glucose Level 233H, Calcium Level 8.9, Corrected Calcium 9.5, Phosphorus Level 2.3, Magnesium Level 1.9, Total Bilirubin 0.3, Aspartate Amino Transf (AST/SGOT) 14, Alanine Aminotransferase (ALT/SGPT) 24, Alkaline Phosphatase 60, Total Protein 6.5, Albumin 3.3 10/25/18 12:40: Glucometer 392H Microbiology 10/22/18 Blood Culture - Preliminary, Resulted No growth 10/22/18 Influenza Types A,B Antigen (VICENTE) - Final, Complete 10/22/18 Urine Culture - Final, Complete NO GROWTH Assessment/Plan Assessment/Plan Assessment & Plan 1. Acute pneumonia bilateral; atypical pneumonia - Patient admitted to ICU; Dr. Hightower consulted - on Cefepime 10/23 - CXR worsened - worsening pneumonia vs developing ARDS? 10/24 - improved CXR and symptoms - continued improvement on Cefepime 2. Acute respiratory distress w/ hypoxia 10/23 - currently 96% on Vapotherm 25 80% FIO2 10/24 - weaning, now of 50% 10/25 - improving; continued weaning O2 3. Severe sepsis without septic shock - hypotension improved with 30mL/kg bolus - LA 2.18 --> 1.21 - flu negative RESOLVED 4. AECOPD - started on Solu-medrol 10/25 - decreased steroid to 40mg q6 5. Electrolyte abnormalities - K, Mg being replaced RESOLVED 6. DM Type 2 w/ hyperglycemia - BS running high likely secondary to steroids, will add Levemir 10 units while pt is in the hospital. - on Trulicity and Metformin as OP 10/25 - BS running 233-431; increase Levemir to 20 units tonight (continue 10 units in the am) 7. Paroxysmal Afib - restarted Eliquis Disp: 10/24 - Transferring to step-down status per Dr. Hightower 10/25 - transfer to medical floor Clinical Quality Measures DVT/VTE Risk/Contraindication: Risk Factor Score Per Nursin RFS Level Per Nursing on Admit: 4+=Very High ANTONIO GONZALEZ DO Oct 25, 2018 17:18
[2018-10-26 00:15] VITALS: BP 159/72
[2018-10-26] MEDS: RT-ALBUTEROL SULF 2.5 MG/3 ML PRE-MIX VIAL INH SCH ×6 (01:12→22:05)
[2018-10-26] MEDS: CEFEPIME 1 GM/NS 50 ML IV SCH ×8 (02:12→20:26)
[2018-10-26 03:50] LABS: BASOPHILS % (AUTO) 0 % (0-10); EOSINOPHILS % (AUTO) 0 % (0-10); HEMATOCRIT 31 % (40-54); HEMOGLOBIN 10.4 G/DL (13.3-17.7); LYMPHOCYTES % (AUTO) 17 % (12-44); MEAN CORPUSCULAR HEMOGLOBIN 29 PG (25-34); MEAN CORPUSCULAR HGB CONC 34 G/DL (32-36); MEAN CORPUSCULAR VOLUME 87 FL (80-99); MEAN PLATELET VOLUME 9.6 FL (7.4-10.4); MONOCYTES # (AUTO) 0.4 X 10^3 (0.0-1.0); MONOCYTES % (AUTO) 7 % (0-12); NEUTROPHILS # (AUTO) 4.4 X 10^3 (1.8-7.8); NEUTROPHILS % (AUTO) 76 % (42-75); PLATELET COUNT 255 10^3/uL (130-400); RED BLOOD COUNT 3.56 10^6/uL (4.35-5.85); RED CELL DISTRIBUTION WIDTH 14.3 % (10.0-14.5); WHITE BLOOD COUNT 5.8 10^3/uL (4.3-11.0)
[2018-10-26 04:14] LABS: ALANINE AMINOTRANSFERASE 22 U/L (0-55); ALBUMIN 3.3 GM/DL (3.2-4.5); ALKALINE PHOSPHATASE 63 U/L (40-136); BILIRUBIN,TOTAL 0.3 MG/DL (0.1-1.0); BUN/CREATININE RATIO 43; CALCIUM 9.1 MG/DL (8.5-10.1); CARBON DIOXIDE 21 MMOL/L (21-32); CHLORIDE 106 MMOL/L (98-107); GFR ESTIMATED > 60; GLUCOSE 219 MG/DL (70-105); MAGNESIUM 1.9 MG/DL (1.8-2.4); PHOSPHORUS 2.3 MG/DL (2.3-4.7); POTASSIUM 4.2 MMOL/L (3.6-5.0); SODIUM 138 MMOL/L (135-145); TOTAL PROTEIN 6.4 GM/DL (6.4-8.2)
--- NOTE | 2018-10-26 06:34 | Pulmonary Progress Note ---
Subjective Time Seen by a Provider: 06:34 Subjective/Events-last exam PT continues to improve. Sepsis Event Evaluation Height, Weight, BMI Height: 5'6.00" Weight: 180lbs. 4.0oz. 81.919759zw; 30.1 BMI Method:Stated Focused Exam Time of Focused Exam: 09:00 Exam Exam Vital Signs Date Time Temp Pulse Resp B/P (MAP) Pulse Ox O2 Delivery O2 Flow Rate FiO2 10/26/18 01:12 95 Nasal Cannula 2.00 10/26/18 01:02 60 10/26/18 00:15 96.0 63 20 159/72 (101) 97 Nasal Cannula 2.00 10/25/18 22:05 98 Nasal Cannula 3.00 10/25/18 20:55 96.0 65 20 134/69 (90) 98 Nasal Cannula 3.00 10/25/18 20:15 Nasal Cannula 4.00 10/25/18 19:03 81 10/25/18 18:47 97 Nasal Cannula 4.00 10/25/18 16:40 96.5 76 22 154/66 (95) 97 Nasal Cannula 4.00 10/25/18 15:00 Nasal Cannula 4.00 10/25/18 15:00 94 Nasal Cannula 4.00 10/25/18 13:00 76 10/25/18 13:00 97.1 77 16 130/82 (98) 93 Room Air 10/25/18 12:00 97.1 77 16 130/82 (98) 93 Room Air 10/25/18 10:45 97 Nasal Cannula 5.00 10/25/18 08:16 100 10/25/18 08:07 97.7 10/25/18 08:00 98 Vapotherm 18.00 45 10/25/18 08:00 63 15 134/73 (93) 93 Vapotherm 45.00 18.00 10/25/18 07:07 77 10/25/18 07:00 81 19 140/68 (92) 94 Vapotherm 45.00 18.00 10/25/18 06:42 93 Vapotherm 18.00 45 I & O 10/26/18 07:00 Intake Total 1430 ml Output Total 1175 ml Balance 255 ml Height & Weight Height: 5'6.00" Weight: 180lbs. 4.0oz. 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
[2018-10-26] MEDS: inSUlin ASPART (NovoLOG) 1 UNIT/0.01 ML (CHARGE PER UNIT) SQ SCH ×4 (06:50→21:08)
[2018-10-26] MEDS: methylPREDNISolone 40 MG/ML (Solu-MEDROL) VIAL IV SCH ×3 (06:50→17:25)
[2018-10-26 07:43] VITALS: BP 142/70
[2018-10-26] MEDS: APIXABAN 5 MG (ELIQUIS) TABLET PO SCH ×2 (09:28→20:25)
[2018-10-26] MEDS: PANTOPRAZOLE 40 MG (PROTONIX) VIAL IV SCH (09:28)
[2018-10-26] MEDS: inSUlin DETERMIR 1 UNIT/0.01 ML (LEVEMIR) CHARGE PER UNIT SQ SCH ×2 (09:29→21:08)
[2018-10-26 12:00] VITALS: BP 133/68
--- NOTE | 2018-10-26 12:12 | Progress Note-Hospitalist ---
Subjective HPI/CC On Admission Date Seen by Provider: Oct 26, 2018 Time Seen by Provider: 11:00 Subjective/Events-last exam Patient feels much better No respiratory insufficiency currently Maintained on oxygen Does not have home O2 Will initiate physical therapy not patient therapy for severe debility and weakened state Overall feels much better Bowels are moving Urination is adequate but required catheter to be removed since he was urinating around the catheter Review of Systems General: Fatigue Pulmonary: Dyspnea Focused Exam Time of Focused Exam: 09:00 Objective Exam Vital Signs Vital Signs Date Time Temp Pulse Resp B/P (MAP) Pulse Ox O2 Delivery O2 Flow Rate FiO2 10/26/18 13:08 62 10/26/18 12:00 99.3 16 133/68 (89) 95 Nasal Cannula 2.00 10/25/18 08:00 45 Capillary Refill : Less Than 3 SecondsLess Than 3 Seconds General Appearance: No Apparent Distress, WD/WN Neck: Full Range of Motion, Normal Inspection, Non Tender, Supple, Carotid Bruit Respiratory: Chest Non Tender, No Accessory Muscle Use, No Respiratory Distress , Crackles, Wheezing Neurologic/Psychiatric: Alert, Oriented x3, No Motor/Sensory Deficits, Normal Mood/Affect Results/Procedures Lab Laboratory Tests 10/26/18 03:30 Patient resulted labs reviewed. Assessment/Plan Assessment and Plan Assess & Plan/Chief Complaint Per PCP: 1. Acute pneumonia bilateral; atypical pneumonia - Patient admitted to ICU; Dr. Hightower consulted - on Cefepime 10/23 - CXR worsened - worsening pneumonia vs developing ARDS? 10/24 - improved CXR and symptoms 10/25 - continued improvement on Cefepime 10/26 improving 2. Acute respiratory distress w/ hypoxia 10/23 - currently 96% on Vapotherm 25 80% FIO2 10/24 - weaning, now of 50% 10/25 - improving; continued weaning O2 3. Severe sepsis without septic shock - hypotension improved with 30mL/kg bolus - LA 2.18 --> 1.21 - flu negative RESOLVED 4. AECOPD - started on Solu-medrol 10/25 - decreased steroid to 40mg q6 5. Electrolyte abnormalities - K, Mg being replaced RESOLVED 6. DM Type 2 w/ hyperglycemia - BS running high likely secondary to steroids, will add Levemir 10 units while pt is in the hospital. - on Trulicity and Metformin as OP 10/25 - BS running 233-431; increase Levemir to 20 units tonight (continue 10 units in the am) 7. Paroxysmal Afib - restarted Eliquis Disp: 10/24 - Transferring to step-down status per Dr. Hightower 10/25 - transfer to medical floor Diagnosis/Problems Diagnosis/Problems (1) Severe sepsis Status: Resolved Resolution Date/Time: 10/26/18 @ 13:47 (2) Bilateral pneumonia Status: Acute Qualifiers: Pneumonia type: due to unspecified organism Lung location: unspecified part of lung Qualified Codes: J18.9 - Pneumonia, unspecified organism (3) Atrial fibrillation Status: Chronic Qualifiers: Atrial fibrillation type: paroxysmal Qualified Codes: I48.0 - Paroxysmal atrial fibrillation (4) Hypoxia Status: Acute (5) CAD (coronary artery disease) Status: Acute Qualifiers: Coronary Disease-Associated Artery/Lesion type: [place] artery [place] vs. transplanted heart: hopi heart Associated angina: without angina Qualified Codes: I25.10 - Atherosclerotic heart disease of [place] coronary artery without angina pectoris Clinical Quality Measures DVT/VTE Risk/Contraindication: Risk Factor Score Per Nursin RFS Level Per Nursing on Admit: 4+=Very High ANASTASIIA SOTO DO Oct 26, 2018 12:12
--- NOTE | 2018-10-26 14:12 | Physical Therapy Evaluation ---
PT Evaluation-General Medical Diagnosis Admission Date Oct 22, 2018 at 09:28 Medical Diagnosis: severe sepsis/bilateral pneumonia Onset Date: Oct 22, 2018 Therapy Diagnosis Therapy Diagnosis: generalized weakness/debility Height/Weight Height (Feet): 5 Height (Inches): 6.00 Weight (Pounds): 173 Weight (Ounces): 8.0 Precautions Precautions/Isolations: Standard Precautions Weight Bear Status Right Lower Extremity: Right Full Weight Bearing Left Lower Extremity: Left Full Weight Bearing Referral Physician: Rosemary Reason for Referral: Evaluation/Treatment Medical History Pertinent Medical History: Atrial Fib, CAD, DM, HTN, PVD Additional Medical History chronic back pain Current History ED secondary to worsening SOA and cough/hypoxic at 77% RA Reviewed History: Yes Social History Home: Single Level Current Living Status: Spouse PT Steps Into Home: 3 Prior/Core FIM Prior Level of Function Therapy Code Descriptions/Definitions Functional [place] Measure: 0=Not Assessed/NA 4=Minimal Assistance 1=Total Assistance 5=Supervision or Setup 2=Maximal Assistance 6=Modified [place] 3=Moderate Assistance 7=Complete [place] Therapy Quality Codes: 6 Independent with activity with or without an assistive device 5 Patient requires set up or clean up by helper. Patient completes activity by themselves 4 Supervision or touching assist (CGA). [place] provide cues , steadying assist 3 The helper provides less than half the effort to complete the activity 2 The helper provides more than half the effort to complete the activity 1 Dependent. The helper does all the effort to complete an activity 7 Patient refused to complete or attempt activity 9 The patient did not perform the activity before the current illness or injury 88 Not attempted due to Medical conditions or safety concerns Functional Abilities and Goals: Independent: Patient completed the activities by him/herself, with or without an assistive device, with no assistance from a helper. Needed Some Help: Patient needed partial assistance from another person to complete activities. Dependent: A helper completed the activities for the patient. Unknown: Not Applicable: Bed Mobility: 6 Transfers (B,C,W/C) (FIM): 6 Gait: 6 Stairs: 6 Indoor Mobility (Ambulation): Independent Stairs: Independent Prior Devices Use: Other-see list below Prior Device Use: cane PT Evaluation-Current Subjective Patient is very agreeable to participate with PT. No c/o. Pain Numeric Pain Scale: 3 Location: Lower Location Body Site: Back Pain Description: Chronic Objective Patient Orientation: Normal For Age Problem Solving: Fair Attachments: Oxygen ROM/Strength ROM Lower Extremities bilateral LE WFL Strength Lower Extremities 4+/5 grossly bilaterally Integumentary/Posture Integumentary refer to nursing notes Bowel Incontinence: No Bladder Incontinence: No Posture WFL Neuromuscular (Tone, Coordination, Reflexes) grossly intact Sensory Vision: Wears Glasses Hearing: Functional Sensation Right Lower Extremit: Impaired Sensation Left Lower Extremity: Impaired Transfers Therapy Code Descriptions/Definitions Functional [place] Measure: 0=Not Assessed/NA 4=Minimal Assistance 1=Total Assistance 5=Supervision or Setup 2=Maximal Assistance 6=Modified [place] 3=Moderate Assistance 7=Complete [place] Transfers (B, C, W/C) (FIM): 5 Scootin Rollin Supine to/from Sit: 5 Sit to/from Stand: 5 Gait Mode of Locomotion: Walk Anticipated Mode of Locomotion: Walk Gait (FIM): 5 Distance (FIM): 3=150 ft Distance: 225' Gait Level of Assist: 5 Gait Assistive Device: FWW Comments/Gait Description steady, functional gait sequence Balance Sitting Static: Normal Sitting Dynamic: Normal Standing Static: Normal Standing Dynamic: Normal Assessment/Needs 62 y.o. male, will benefit from short term by skilled PT to address functional mobility to improve current LOF. Patient has limited pulmonary function due to diagnosis. Rehab Potential: Fair PT Chcf Goals Package Pick Up Goals PT Chcf Goals Time Frame: Nov 07, 2018 Transfers (B,C,W/C) (FIM): 6 Gait (FIM): 6 Gait distance (FIM): 3=150 ft Distance: 275' Gait Level of Assist: 6 Gait Assistive Device: FWW, Cane Single Point PT Plan Problem List Problem List: Activity Tolerance, Safety, Gait, Transfer Treatment/Plan Treatment Plan: Continue Plan of Care Treatment Plan: Education, Functional Activity Doming[place], Functional Strength, Gait , Safety, Therapeutic Exercise, Transfers Treatment Duration: Nov 07, 2018 Frequency: 6 times per week Estimated Hrs Per Day: .25 hour per day Patient and/or Family Agrees t: Yes Discharge Recommendations Therapy D/C Recommendations: Home w/ Family Support Time/GCodes Time In: 1325 Time Out: 1344 Total Billed Treatment Time: 19 Total Billed Treatment 1 visit EVModC 19 min JENNIFER LINTON PT Oct 26, 2018 14:12
[2018-10-26 16:00] VITALS: BP 142/73
--- NOTE | 2018-10-26 16:10 | Occupational Therapy Eval ---
OT Evaluation-General/PLF Medical Diagnosis Admission Date Oct 22, 2018 at 09:28 Medical Diagnosis: severe sepsis/bilateral pneumonia Onset Date: Oct 22, 2018 Therapy Diagnosis Therapy Diagnosis: decr self care, weakness, decr act angelina, decr funct mob Height/Weight Height (Feet): 5 Height (Inches): 6.00 Weight (Pounds): 173 Weight (Ounces): 8.0 Precautions Precautions/Isolations: Standard Precautions Safety Interventions: None Referral Physician: Rosemary Referral Reason: Evaluation/Treatment Medical History Pertinent Medical History: Atrial Fib, Arthritis, CAD, COPD, DM, GERD, HTN, PVD Additional Medical History "[place] lung." Pneumonia, HILDA with CPAP, chronic bronchitis. Kidney stones. R shoulder pain. Chronic back pain. Gout. Pt reported R shoulder rotator cuff repair. Anxiety, depression Current History SOA, cough since 10-17-18. Admitted with severe sepsis, pneumonia, hypoxia Reviewed History: Yes Social History Home: Single Level Current Living Status: Spouse Steps Into Home: 3 ADL-Prior Level of Function Therapy Code Descriptions/Definitions Functional [place] Measure: 0=Not Assessed/NA 4=Minimal Assistance 1=Total Assistance 5=Supervision or Setup 2=Maximal Assistance 6=Modified [place] 3=Moderate Assistance 7=Complete [place] Therapy Quality Codes: 6 Independent with activity with or without an assistive device 5 Patient requires set up or clean up by helper. Patient completes activity by themselves 4 Supervision or touching assist (CGA). [place] provide cues , steadying assist 3 The helper provides less than half the effort to complete the activity 2 The helper provides more than half the effort to complete the activity 1 Dependent. The helper does all the effort to complete an activity 7 Patient refused to complete or attempt activity 9 The patient did not perform the activity before the current illness or injury 88 Not attempted due to Medical conditions or safety concerns Functional Abilities and Goals: Independent: Patient completed the activities by him/herself, with or without an assistive device, with no assistance from a helper. Needed Some Help: Patient needed partial assistance from another person to complete activities. Dependent: A helper completed the activities for the patient. Unknown: Not Applicable: ADL PLOF Comments Pt reported that he has been able to manage his basic self care needs except for putting on his socks (family helps) due to back pain. He does "his fair share" around the house but isn't able to help much with the yard work. 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 Self Care: Needed Some Help OT Current Status Subjective Pt seen in room, up in recliner, agreeable to OT. Pain reported 0/10 unless he' s up for a while Appearance Alert, cooperative Mental Status/Objective Patient Orientation: Place, Time, Situation Attachments: IV, Oxygen, Telemetry Current Glasses/Contacts: Yes Hand Dominance: Right Upper Extremity ROM Grossly WFL bilat. Shoulder WFL passively Upper Extremity Strength Grossly WFL except L shoulder 3-/5 ADL-Treatment ADL-Current Pt walked 225 feet with FWW and SBA with PT. Said he has been going to the bathroom with someone helping him ge there. He took a shower today and said that he was able to do almost all of it. He has been feeding himself without difficulty. Therapy Code Descriptions/Definitions Functional [place] Measure: 0=Not Assessed/NA 4=Minimal Assistance 1=Total Assistance 5=Supervision or Setup 2=Maximal Assistance 6=Modified [place] 3=Moderate Assistance 7=Complete [place] Therapy Quality Codes: 6 Independent with activity with or without an assistive device 5 Patient requires set up or clean up by helper. Patient completes activity by themselves 4 Supervision or touching assist (CGA). [place] provide cues , steadying assist 3 The helper provides less than half the effort to complete the activity 2 The helper provides more than half the effort to complete the activity 1 Dependent. The helper does all the effort to complete an activity 7 Patient refused to complete or attempt activity 9 The patient did not perform the activity before the current illness or injury 88 Not attempted due to Medical conditions or safety concerns Education OT Patient Education: Purpose of tx/functional activities, Rehab process Teaching Recipient: Patient Teaching Methods: Discussion Response to Teaching: Verbalize Understanding OT Vending Machine Collector Goals Residential Goals Time Frame: Nov 02, 2018 Eating (FIM): 6 Grooming(FIM): 6 Bathing(FIM): 5 Upper Body Dressing(FIM): 5 Lower Body Dressing(FIM): 5 Toileting(FIM): 6 Toilet/Commode Transfer(FIM): 6 Shower Transfer(FIM): 5 Additional Goals: 1-Demonstrate ADL Tasks, 2-Verbalize Understanding, 3- ImproveStrength/[place] 1=Demonstrate adherence to instructed precautions during ADL tasks. 2=Patient will verbalize/demonstrate understanding of assistive devices/ modifications for ADL. 3=Patient will improve strength/tolerance for activity to enable patient to perform ADL's. OT Education/Plan Problem List/Assessment Assessment: Decreased Activ Tolerance, Decreased UE Strength, Dependent Transfers, Impaired Self-Care Skills Pt would benefit from skilled OT to ncrease his independence iwth basic self care Discharge Recommendations Plan/Recommendations: Continue POC Treatment Plan/Plan of Care Treatment,Training & Education: Yes Patient would benefit from OT for education, treatment and training to promote independence in ADL's, mobility, safety and/or upper extremity function for ADL' s. Plan of Care: ADL Retraining, Functional Mobility, UE Funct Exercise/Act, UE Neuromus Re-Ed/Coord Treatment Duration: Nov 02, 2018 Frequency: 5 times per week Estimated Hrs Per Day: .25 hour per day Agreement: Yes Rehab Potential: Fair Time/GCodes Start Time: 15:45 Stop Time: 16:00 Total Time Billed (hr/min): 15 Billed Treatment Time visit, 15 minutes evaluation moderate intensity GABE BRODY OT Oct 26, 2018 16:10
[2018-10-26 20:00] VITALS: BP 147/66
[2018-10-26 23:36] VITALS: BP 146/92
[2018-10-27] MEDS: methylPREDNISolone 40 MG/ML (Solu-MEDROL) VIAL IV SCH ×5 (00:04→23:14)
[2018-10-27] MEDS: CEFEPIME 1 GM/NS 50 ML IV SCH ×8 (02:16→20:21)
[2018-10-27] MEDS: RT-ALBUTEROL SULF 2.5 MG/3 ML PRE-MIX VIAL INH SCH ×6 (03:04→22:07)
[2018-10-27 04:52] LABS: BASOPHILS % (AUTO) 0 % (0-10); EOSINOPHILS % (AUTO) 0 % (0-10); HEMATOCRIT 33 % (40-54); HEMOGLOBIN 10.6 G/DL (13.3-17.7); LYMPHOCYTES % (AUTO) 17 % (12-44); MEAN CORPUSCULAR HEMOGLOBIN 28 PG (25-34); MEAN CORPUSCULAR HGB CONC 32 G/DL (32-36); MEAN CORPUSCULAR VOLUME 88 FL (80-99); MEAN PLATELET VOLUME 9.9 FL (7.4-10.4); MONOCYTES # (AUTO) 0.5 X 10^3 (0.0-1.0); MONOCYTES % (AUTO) 9 % (0-12); NEUTROPHILS % (AUTO) 73 % (42-75); PLATELET COUNT 253 10^3/uL (130-400); RED BLOOD COUNT 3.74 10^6/uL (4.35-5.85); WHITE BLOOD COUNT 5.5 10^3/uL (4.3-11.0)
[2018-10-27 05:15] LABS: ALANINE AMINOTRANSFERASE 26 U/L (0-55); ALBUMIN 3.3 GM/DL (3.2-4.5); ALKALINE PHOSPHATASE 65 U/L (40-136); BILIRUBIN,TOTAL 0.3 MG/DL (0.1-1.0); BUN/CREATININE RATIO 39; CALCIUM 8.9 MG/DL (8.5-10.1); CARBON DIOXIDE 22 MMOL/L (21-32); CHLORIDE 106 MMOL/L (98-107); CREATININE SERUM 0.69 MG/DL (0.60-1.30); GFR ESTIMATED > 60; GLUCOSE 272 MG/DL (70-105); POTASSIUM 4.1 MMOL/L (3.6-5.0); SODIUM 138 MMOL/L (135-145); TOTAL PROTEIN 6.1 GM/DL (6.4-8.2)
[2018-10-27] MEDS: inSUlin ASPART (NovoLOG) 1 UNIT/0.01 ML (CHARGE PER UNIT) SQ SCH ×4 (06:49→20:21)
[2018-10-27 08:00] VITALS: BP 161/82
--- NOTE | 2018-10-27 08:02 | Pulmonary Progress Note ---
Sepsis Event Evaluation Height, Weight, BMI Height: 5'6.00" Weight: 175lbs. 8.0oz. 79.486469ph; 30.1 BMI Method:Stated Focused Exam Time of Focused Exam: 09:00 Exam Exam Vital Signs Date Time Temp Pulse Resp B/P (MAP) Pulse Ox O2 Delivery O2 Flow Rate FiO2 10/27/18 03:04 94 Nasal Cannula 1.50 10/26/18 23:36 97.9 86 20 146/92 (110) 98 Nasal Cannula 3.00 10/26/18 22:05 98 Nasal Cannula 2.00 10/26/18 20:25 Nasal Cannula 3.00 10/26/18 20:00 99.6 73 18 147/66 (93) 98 Nasal Cannula 2.00 10/26/18 19:26 97 Nasal Cannula 2.00 10/26/18 16:00 99.8 82 19 142/73 (96) 96 Nasal Cannula 2.00 10/26/18 14:22 93 Nasal Cannula 2.50 10/26/18 13:08 62 10/26/18 12:00 99.3 78 16 133/68 (89) 95 Nasal Cannula 2.00 10/26/18 09:44 92 Nasal Cannula 2.50 10/26/18 08:45 Nasal Cannula 3.00 I & O 10/27/18 07:00 Intake Total 960 ml Output Total 1875 ml Balance -915 ml Height & Weight Height: 5'6.00" Weight: 175lbs. 8.0oz. 79.938624fg; 30.1 BMI Method:Stated General Appearance: No Apparent Distress, WD/WN HEENT: PERRL/EOMI, Normal ENT Inspection, Other Neck: Full Range of Motion, Normal Inspection, Non Tender, Supple, Carotid Bruit Respiratory: Chest Non Tender, No Accessory Muscle Use, No Respiratory Distress , Crackles, Wheezing Cardiovascular: Regular Rate, Rhythm Capillary Refill: Less Than 3 Seconds Gastrointestinal: normal bowel sounds, non tender, soft, no organomegaly Extremity: Normal Capillary Refill, Normal Inspection, Non Tender, No Calf Tenderness, No Pedal Edema, Other Neurologic/Psychiatric: Alert, Oriented x3, No Motor/Sensory Deficits, Normal Mood/Affect Skin: Normal Color, Warm/Dry Results Lab Laboratory Tests 10/26/18 03:30 10/27/18 04:20 Assessment/Plan Assessment/Plan Acute respiratory failure -Atypical pneumonia - Acute atypical pneumonia with hypoxia and atelectasis with severe sepsis -CXR is improving -cefepime -Solumedrol -Samson cultures pending -Strep/legionella ag are negative -MRSA nasal swab COPDAE -SVNS Q4 -solumedrol (eosinophils are slightly elevated on CBC) Hx of Paroxysmal Afib - currently sinus -Eliquis HILDA -Has home CPAP Anemia -Monitor CAD hx DOUG SAMUEL DO Oct 27, 2018 08:02
--- NOTE | 2018-10-27 09:04 | Physical Therapy Daily Note ---
PT Daily Note-Current Subjective Patient states he is feeling much better and agrees to PT. Pain Numeric Pain Scale: 0-No Pain Location: No Pain Reported Mental Status Patient Orientation: Normal For Age Attachments: Oxygen Transfers Therapy Code Descriptions/Definitions Functional [place] Measure: 0=Not Assessed/NA 4=Minimal Assistance 1=Total Assistance 5=Supervision or Setup 2=Maximal Assistance 6=Modified [place] 3=Moderate Assistance 7=Complete [place] Therapy Quality Codes: 6 Independent with activity with or without an assistive device 5 Patient requires set up or clean up by helper. Patient completes activity by themselves 4 Supervision or touching assist (CGA). [place] provide cues , steadying assist 3 The helper provides less than half the effort to complete the activity 2 The helper provides more than half the effort to complete the activity 1 Dependent. The helper does all the effort to complete an activity 7 Patient refused to complete or attempt activity 9 The patient did not perform the activity before the current illness or injury 88 Not attempted due to Medical conditions or safety concerns Transfers (B, C, W/C) (FIM): 6 Scootin Rollin Supine to/from Sit: 6 Sit to/from Stand: 6 Bed to/from Chair: 6 Weight Bearing Right Lower Extremity: Right Full Weight Bearing Left Lower Extremity: Left Full Weight Bearing Gait Training Gait (FIM): 6 Distance (FIM): 3=150 ft Distance: 450' Gait Level of Assist: 6 Gait Assistive Device: FWW safe and functional with no deviation Assessment Patient much improved with gross motor skills. PT instructed patient and nursing staff to be up ad merline in room and to ambulate in hallway with nursing staff PRN. Both voice understanding. PT Alf Goals Alf Goals PT Classification Case Manager Goals Time Frame: Nov 07, 2018 Transfers (B,C,W/C) (FIM): 6 Gait (FIM): 6 Gait distance (FIM): 3=150 ft Distance: 275' Gait Level of Assist: 6 Gait Assistive Device: FWW, Cane Single Point PT Plan Treatment/Plan Treatment Plan: Continue Plan of Care Treatment Plan: Education, Functional Activity [place], Functional Strength, Gait , Safety, Therapeutic Exercise, Transfers Treatment Duration: Nov 07, 2018 Frequency: 6 times per week Estimated Hrs Per Day: .25 hour per day Patient and/or Family Agrees t: Yes Time/GCodes Time In: 840 Time Out: 850 Total Billed Treatment Time: 10 Total Billed Treatment 1 visit FA 10 min JENNIFER LINTON PT Oct 27, 2018 09:04
[2018-10-27] MEDS: PANTOPRAZOLE 40 MG (PROTONIX) TAB PO SCH (09:11)
[2018-10-27] MEDS: inSUlin DETERMIR 1 UNIT/0.01 ML (LEVEMIR) CHARGE PER UNIT SQ SCH ×2 (09:11→20:21)
[2018-10-27] MEDS: APIXABAN 5 MG (ELIQUIS) TABLET PO SCH ×2 (09:11→20:21)
--- NOTE | 2018-10-27 12:33 | Progress Note-Hospitalist ---
Subjective HPI/CC On Admission Date Seen by Provider: Oct 27, 2018 Time Seen by Provider: 11:00 Subjective/Events-last exam Patient doing much better Walking around Bowels are moving May need home O2 No pain is reported Ready to go tomorrow Review of Systems General: Fatigue Pulmonary: Dyspnea Focused Exam Time of Focused Exam: 09:00 Objective Exam Vital Signs Vital Signs Date Time Temp Pulse Resp B/P (MAP) Pulse Ox O2 Delivery O2 Flow Rate FiO2 10/27/18 10:44 96 Nasal Cannula 1.50 10/27/18 08:00 97.8 88 16 161/82 (108) 10/25/18 08:00 45 Capillary Refill : Less Than 3 SecondsLess Than 3 Seconds General Appearance: No Apparent Distress, WD/WN, Chronically ill Respiratory: Chest Non Tender, Lungs Clear, Normal Breath Sounds, No Accessory Muscle Use, No Respiratory Distress Cardiovascular: Regular Rate, Rhythm, No Edema, No Gallop, No JVD, No Murmur, Normal Peripheral Pulses Neurologic/Psychiatric: Alert, Oriented x3, No Motor/Sensory Deficits, Normal Mood/Affect Results/Procedures Lab Laboratory Tests 10/27/18 04:20 Patient resulted labs reviewed. Assessment/Plan Assessment and Plan Assess & Plan/Chief Complaint Per PCP: 1. Acute pneumonia bilateral; atypical pneumonia - Patient admitted to ICU; Dr. Hightower consulted - on Cefepime 10/23 - CXR worsened - worsening pneumonia vs developing ARDS? 10/24 - improved CXR and symptoms 10/25 - continued improvement on Cefepime 10/26 improving 2. Acute respiratory distress w/ hypoxia 10/23 - currently 96% on Vapotherm 25 80% FIO2 10/24 - weaning, now of 50% 10/25 - improving; continued weaning O2 3. Severe sepsis without septic shock - hypotension improved with 30mL/kg bolus - LA 2.18 --> 1.21 - flu negative RESOLVED 4. AECOPD - started on Solu-medrol 10/25 - decreased steroid to 40mg q6 5. Electrolyte abnormalities - K, Mg being replaced RESOLVED 6. DM Type 2 w/ hyperglycemia - BS running high likely secondary to steroids, will add Levemir 10 units while pt is in the hospital. - on Trulicity and Metformin as OP 10/25 - BS running 233-431; increase Levemir to 20 units tonight (continue 10 units in the am) 7. Paroxysmal Afib - restarted Eliquis Disp: 10/24 - Transferring to step-down status per Dr. Hightower 10/25 - transfer to medical floor Plan: Discharge home tomorrow Home O2 eval Monitor closely Diagnosis/Problems Diagnosis/Problems (1) Severe sepsis Status: Resolved Resolution Date/Time: 10/26/18 @ 13:47 (2) Bilateral pneumonia Status: Acute Qualifiers: Pneumonia type: due to unspecified organism Lung location: unspecified part of lung Qualified Codes: J18.9 - Pneumonia, unspecified organism (3) Atrial fibrillation Status: Chronic Qualifiers: Atrial fibrillation type: paroxysmal Qualified Codes: I48.0 - Paroxysmal atrial fibrillation (4) Hypoxia Status: Acute (5) CAD (coronary artery disease) Status: Acute Qualifiers: Coronary Disease-Associated Artery/Lesion type: [place] artery [place] vs. transplanted heart: [place] heart Associated angina: without angina Qualified Codes: I25.10 - Atherosclerotic heart disease of [place] coronary artery without angina pectoris Clinical Quality Measures DVT/VTE Risk/Contraindication: Risk Factor Score Per Nursin RFS Level Per Nursing on Admit: 4+=Very High ANASTASIIA SOTO DO Oct 27, 2018 12:33
--- NOTE | 2018-10-27 12:52 | Occupational Ther Daily Note ---
OT Current Status-Daily Note Subjective Pt seen in room, up in recliner, agreeable to OT. No pain mentioned. Appearance Alert, cooperative Mental Status/Objective Therapy Code Descriptions/Definitions Functional [place] Measure: 0=Not Assessed/NA 4=Minimal Assistance 1=Total Assistance 5=Supervision or Setup 2=Maximal Assistance 6=Modified [place] 3=Moderate Assistance 7=Complete [place] ADL-Treatment Pt has been made up ad merline in his room and said that he has been able to go to the bathroom himself. Pt education on use of sock aid to don socks without bending over, with return demonstration. Also talked about other items in hip kit including long handled sponge, chute tender, dressing stick, long shoe horn. Discussed ways to make home easier due to back pain and decreased activity tolerance, including BSC over toilet, transfer tub bench, grab bars. Pt verbalized understanding. Anticipated DC to home tomorrow. DC OT, with goals met to pt satisfaction. Education OT Patient Education: Modified ADL techniques, Progress toward Goal/Update tx plan, Purpose of tx/functional activities, Transfer techniques, Use of adapted equipment Teaching Recipient: Patient Teaching Methods: Demonstration, Discussion Response to Teaching: Verbalize Understanding, Return Demonstration OT Short Term Goals Short Term Goals 1=Demonstrate adherence to instructed precautions during ADL tasks. 2=Patient will verbalize/demonstrate understanding of assistive devices/ modifications for ADL. 3=Patient will improve strength/tolerance for activity to enable patient to perform ADL's. OT Fdc Goals Fdc Goals Time Frame: Nov 02, 2018 Eating (FIM): 6 Grooming(FIM): 6 Bathing(FIM): 5 Upper Body Dressing(FIM): 5 Lower Body Dressing(FIM): 5 Toileting(FIM): 6 Toilet/Commode Transfer(FIM): 6 Shower Transfer(FIM): 5 Additional Goals: 1-Demonstrate ADL Tasks, 2-Verbalize Understanding, 3- ImproveStrength/[place] 1=Demonstrate adherence to instructed precautions during ADL tasks. 2=Patient will verbalize/demonstrate understanding of assistive devices/ modifications for ADL. 3=Patient will improve strength/tolerance for activity to enable patient to perform ADL's. OT Education/Plan Problem List/Assessment Pt would benefit from skilled OT to ncrease his independence iwth basic self care Discharge Recommendations Plan/Recommendations: Continue POC Treatment Plan/Plan of Care Patient would benefit from OT for education, treatment and training to promote independence in ADL's, mobility, safety and/or upper extremity function for ADL' s. Plan of Care: ADL Retraining, Functional Mobility, UE Funct Exercise/Act, UE Neuromus Re-Ed/Coord Treatment Duration: Nov 02, 2018 Frequency: 5 times per week Estimated Hrs Per Day: .25 hour per day Agreement: Yes Rehab Potential: Fair Time/GCodes Start Time: 11:20 Stop Time: 11:45 Total Time Billed (hr/min): 25 Billed Treatment Time visit, 25 minutes ADL GABE BRODY OT Oct 27, 2018 12:52
--- NOTE | 2018-10-27 15:24 | NUR ---
HOME OXYGEN STUDY PT WALKED AND DIDN'T DROP BELOW 92% DOESN'T REQUIRE OXYGEN AT THIS POINT
[2018-10-27 16:00] VITALS: BP 166/80
[2018-10-27 20:00] VITALS: BP 176/77
[2018-10-28] VITALS: BP 155/73
--- NOTE | 2018-10-28 00:44 | NUR ---
see rt home o2 qualification 2350 intervention Addendum: 10/28/18 at 0046 by BOOGIE DENTON RT Amended: Links added.
[2018-10-28] MEDS: RT-ALBUTEROL SULF 2.5 MG/3 ML PRE-MIX VIAL INH SCH ×3 (02:50→11:16)
[2018-10-28] MEDS: CEFEPIME 1 GM/NS 50 ML IV SCH ×4 (02:56→09:19)
[2018-10-28] MEDS: inSUlin ASPART (NovoLOG) 1 UNIT/0.01 ML (CHARGE PER UNIT) SQ SCH ×2 (06:03→13:13)
[2018-10-28] MEDS: methylPREDNISolone 40 MG/ML (Solu-MEDROL) VIAL IV SCH (06:03)
[2018-10-28 06:08] LABS: BASOPHILS % (AUTO) 0 % (0-10); EOSINOPHILS % (AUTO) 0 % (0-10); HEMATOCRIT 35 % (40-54); HEMOGLOBIN 11.4 G/DL (13.3-17.7); LYMPHOCYTES # (AUTO) 1.5 X 10^3 (1.0-4.0); LYMPHOCYTES % (AUTO) 19 % (12-44); MEAN CORPUSCULAR HEMOGLOBIN 28 PG (25-34); MEAN CORPUSCULAR HGB CONC 32 G/DL (32-36); MEAN CORPUSCULAR VOLUME 87 FL (80-99); MEAN PLATELET VOLUME 9.9 FL (7.4-10.4); MONOCYTES # (AUTO) 0.5 X 10^3 (0.0-1.0); MONOCYTES % (AUTO) 6 % (0-12); NEUTROPHILS # (AUTO) 5.9 X 10^3 (1.8-7.8); NEUTROPHILS % (AUTO) 74 % (42-75); PLATELET COUNT 274 10^3/uL (130-400); RED BLOOD COUNT 4.05 10^6/uL (4.35-5.85); RED CELL DISTRIBUTION WIDTH 14.2 % (10.0-14.5); WHITE BLOOD COUNT 7.9 10^3/uL (4.3-11.0)
--- NOTE | 2018-10-28 06:27 | NUR ---
Home oxygen study done by Sharlene Robertson during exertion pt maintained sats 95%-97% with exercise on 3 lpm nc, will require oxygen at all times of 3 lpm
[2018-10-28 06:29] LABS: ALANINE AMINOTRANSFERASE 27 U/L (0-55); ALBUMIN 3.3 GM/DL (3.2-4.5); ALKALINE PHOSPHATASE 62 U/L (40-136); BILIRUBIN,TOTAL 0.3 MG/DL (0.1-1.0); BUN/CREATININE RATIO 40; CARBON DIOXIDE 22 MMOL/L (21-32); CHLORIDE 105 MMOL/L (98-107); CREATININE SERUM 0.65 MG/DL (0.60-1.30); GFR ESTIMATED > 60; GLUCOSE 209 MG/DL (70-105); POTASSIUM 4.3 MMOL/L (3.6-5.0); SODIUM 138 MMOL/L (135-145)
[2018-10-28 08:04] VITALS: BP 162/74
[2018-10-28] MEDS ORDERED: PRED10TA22 PO (09:12)
[2018-10-28] MEDS ORDERED: CEFD300C3 PO (09:12)
--- NOTE | 2018-10-28 09:14 | Discharge Summary-Hospitalist ---
Diagnosis/Chief Complaint Date of Admission Oct 22, 2018 at 09:28 Date of Discharge Discharge Date: Oct 28, 2018 Discharge Diagnosis (1) Severe sepsis Status: Resolved (2) Bilateral pneumonia Status: Acute (3) Atrial fibrillation Status: Chronic (4) Hypoxia Status: Acute (5) CAD (coronary artery disease) Status: Acute Discharge Summary Discharge Physical Exam Allergies: Coded Allergies: atorvastatin (Verified Allergy, Mild, 03/26/17) Patient states that his bones ached and he wasn't able to tolerate it. Vitals & I&Os Vital Signs Date Time Temp Pulse Resp B/P (MAP) Pulse Ox O2 Delivery O2 Flow Rate FiO2 10/28/18 11:16 91 Nasal Cannula 1.00 10/28/18 08:04 97.8 72 20 162/74 (103) 10/25/18 08:00 45 General Appearance: No Apparent Distress, WD/WN, Chronically ill Respiratory: Chest Non Tender, Lungs Clear, Normal Breath Sounds, No Accessory Muscle Use, No Respiratory Distress Cardiovascular: Regular Rate, Rhythm, No Edema, No Gallop, No JVD, No Murmur, Normal Peripheral Pulses Neurologic/Psychiatric: Alert, Oriented x3, No Motor/Sensory Deficits, Normal Mood/Affect Hospital Course Hospital course: Patient had a very complex hospital course that started in the ICU due to severe sepsis requiring IV fluid resuscitation for bilateral pneumonia. Patient improved with aggressive management with critical care and pulmonology and patient improved rapidly. He was maintain on broad-spectrum antibiotics lab was monitored and did not have any decompensation. He did require home oxygen management at discharge and those orders were placed. Labs were monitored closely and bowel function and patient's nutrition was adequate and patient was agreeable for discharge with close follow-up with [facility]. All labs and meds were evaluated and confirmed at discharge. Labs (last 24 hrs) Laboratory Tests 10/27/18 16:03: Glucometer 345H 10/27/18 19:59: Glucometer 299H 10/28/18 05:07: Glucometer 229H 10/28/18 05:50: White Blood Count 7.9, Red Blood Count 4.05L, Hemoglobin 11.4L, Hematocrit 35L, Mean Corpuscular Volume 87, Mean Corpuscular Hemoglobin 28, Mean Corpuscular Hemoglobin Concent 32, Red Cell Distribution Width 14.2, Platelet Count 274, Mean Platelet Volume 9.9, Neutrophils (%) (Auto) 74, Lymphocytes (%) (Auto) 19, Monocytes (%) (Auto) 6, Eosinophils (%) (Auto) 0, Basophils (%) (Auto) 0, Neutrophils # (Auto) 5.9, Lymphocytes # (Auto) 1.5, Monocytes # (Auto) 0.5, Eosinophils # (Auto) 0.0, Basophils # (Auto) 0.0, Sodium Level 138, Potassium Level 4.3, Chloride Level 105, Carbon Dioxide Level 22, Anion Gap 11, Blood Urea Nitrogen 26H, Creatinine 0.65, Estimat Glomerular Filtration Rate > 60, BUN /Creatinine Ratio 40, Glucose Level 209H, Calcium Level 9.0, Corrected Calcium 9.6, Total Bilirubin 0.3, Aspartate Amino Transf (AST/SGOT) 14, Alanine Aminotransferase (ALT/SGPT) 27, Alkaline Phosphatase 62, Total Protein 6.0L, Albumin 3.3 10/28/18 11:47: Glucometer 271H Microbiology 10/22/18 Blood Culture - Final, Complete No growth 10/22/18 Influenza Types A,B Antigen (VICENTE) - Final, Complete 10/22/18 Urine Culture - Final, Complete NO GROWTH Patient resulted labs reviewed. Pending Labs Laboratory Tests 10/28/18 05:07: Glucometer 229 10/28/18 05:50: White Blood Count 7.9, Red Blood Count 4.05, Hemoglobin 11.4, Hematocrit 35, Mean Corpuscular Volume 87, Mean Corpuscular Hemoglobin 28, Mean Corpuscular Hemoglobin Concent 32, Red Cell Distribution Width 14.2, Platelet Count 274, Mean Platelet Volume 9.9, Neutrophils (%) (Auto) 74, Lymphocytes (%) (Auto) 19, Monocytes (%) (Auto) 6, Eosinophils (%) (Auto) 0, Basophils (%) (Auto) 0, Neutrophils # (Auto) 5.9, Lymphocytes # (Auto) 1.5, Monocytes # (Auto) 0.5, Eosinophils # (Auto) 0.0, Basophils # (Auto) 0.0, Sodium Level 138, Potassium Level 4.3, Chloride Level 105, Carbon Dioxide Level 22, Anion Gap 11, Blood Urea Nitrogen 26, Creatinine 0.65, Estimat Glomerular Filtration Rate > 60, BUN/ Creatinine Ratio 40, Glucose Level 209, Calcium Level 9.0, Corrected Calcium 9.6 , Total Bilirubin 0.3, Aspartate Amino Transf (AST/SGOT) 14, Alanine Aminotransferase (ALT/SGPT) 27, Alkaline Phosphatase 62, Total Protein 6.0, Albumin 3.3 10/28/18 11:47: Glucometer 271 Discussion & Recommendations Discharge Planning: <30 minutes discharge planning Discharge Home Medications: Active Scripts Active Cefdinir 300 Mg Capsule 300 Mg PO BID Prednisone 10 Mg Tab.ds.pk 10 Mg PO DAILY Take 6 tabs(60mg)daily,decrease by 1 tab(10MG)daily. Reported Magnesium (Magnesium Oxide) 400 Mg Tablet 400 Mg PO DAILY Eliquis (Apixaban) 5 Mg Tablet 5 Mg PO BID Rosuvastatin Calcium 20 Mg Tablet 20 Mg PO HS Albuterol Sulfate 2.5 Mg/3 Ml Vial.neb 2.5 Mg IH Q4H PRN Incruse Ellipta (Umeclidinium [place]) 62.5 Mcg Blst.w.dev 1 Puff IH DAILY Symbicort 160-4.5 Mcg Inhaler (Budesonide/Formoterol Fumarate) 10.2 Gm Hfa.aer.ad 2 Puff IH DAILY Potassium (Potassium Gluconate) 99 Mg Tablet 99 Mg PO DAILY Fish Oil 1,000 mg Capsule ([place] 3 Polyunsat Fatty Acids) 1,000 Mg Cap 1,000 Mg PO BID Montelukast Sodium 10 Mg Tablet 10 Mg PO HS Metoprolol Succinate 25 Mg Tab.er.24h 25 Mg PO HS Voltaren (Diclofenac Sodium) 100 Gm Gel..gram. TP QID PRN Allopurinol 300 Mg Tablet 300 Mg PO BID Fluticasone Propionate 16 Gm [place].susp 1 [place] NS BID PRN Glimepiride 4 Mg Tablet 4 Mg PO DAILY Metformin HCl 1,000 Mg Tablet 1,000 Mg PO BID Fluoxetine HCl 20 Mg Capsule 40 Mg PO DAILY TAKES 2 (20MG) CAPSULES Omeprazole 20 Mg Capsule.dr 20 Mg PO DAILY Lisinopril-Hctz 10-12.5 mg Tab (Lisinopril/Hydrochlorothiazide) 1 Each Tablet 1 Tab PO HS Tricor (Fenofibrate Nanocrystallized) 145 Mg Tablet 145 Mg PO HS Gabapentin 300 Mg Capsule 300 Mg PO BID Instructions to patient/family Please see electronic discharge instructions given to patient. Clinical Quality Measures DVT/VTE Risk/Contraindication: Risk Factor Score Per Nursin RFS Level Per Nursing on Admit: 4+=Very High Problem Qualifiers (1) Bilateral pneumonia: Pneumonia type: due to unspecified organism Lung location: unspecified part of lung Qualified Codes: J18.9 - Pneumonia, unspecified organism (2) Atrial fibrillation: Atrial fibrillation type: paroxysmal Qualified Codes: I48.0 - Paroxysmal atrial fibrillation (3) CAD (coronary artery disease): Coronary Disease-Associated Artery/Lesion type: [place] artery [place] vs. transplanted heart: [place] heart Associated angina: without angina Qualified Codes: I25.10 - Atherosclerotic heart disease of [place] coronary artery without angina pectoris ANASTASIIA SOTO DO Oct 28, 2018 09:13
[2018-10-28] MEDS: PANTOPRAZOLE 40 MG (PROTONIX) TAB PO SCH (09:19)
[2018-10-28] MEDS: inSUlin DETERMIR 1 UNIT/0.01 ML (LEVEMIR) CHARGE PER UNIT SQ SCH (09:19)
[2018-10-28] MEDS: APIXABAN 5 MG (ELIQUIS) TABLET PO SCH (09:19)
--- NOTE | 2018-10-28 09:37 | Pulmonary Progress Note ---
Subjective Time Seen by a Provider: 09:37 Subjective/Events-last exam PT appears to be doing better. Sepsis Event Evaluation Height, Weight, BMI Height: 5'6.00" Weight: 172lbs. 0.0oz. [id number]; 30.1 BMI Method:Stated Focused Exam Time of Focused Exam: 09:00 Exam Exam Vital Signs Date Time Temp Pulse Resp B/P (MAP) Pulse Ox O2 Delivery O2 Flow Rate FiO2 10/28/18 08:04 97.8 72 20 162/74 (103) 98 Nasal Cannula 1.50 10/28/18 07:08 92 Nasal Cannula 1.00 10/28/18 02:50 95 Nasal Cannula 3.00 10/28/18 00:00 97.0 70 18 155/73 (100) 96 Nasal Cannula 1.50 10/27/18 23:50 93 10/27/18 22:07 96 Room Air 10/27/18 20:00 Nasal Cannula 1.50 10/27/18 20:00 97.1 64 176/77 (110) 96 Room Air 10/27/18 16:00 96.4 70 20 166/80 (108) 94 Room Air 10/27/18 15:23 96 1.50 10/27/18 15:20 92 Room Air 0.00 10/27/18 10:44 96 Nasal Cannula 1.50 I & O 10/28/18 07:00 Intake Total 1945 ml Output Total 1825 ml Balance 120 ml Height & Weight Height: 5'6.00" Weight: 172lbs. 0.0oz. 78.574727hu; 30.1 BMI Method:Stated General Appearance: No Apparent Distress, WD/WN, Chronically ill HEENT: PERRL/EOMI, Normal ENT Inspection, Other Neck: Full Range of Motion, Normal Inspection, Non Tender, Supple, Carotid Bruit Respiratory: Chest Non Tender, Lungs Clear, Normal Breath Sounds, No Accessory Muscle Use, No Respiratory Distress Cardiovascular: Regular Rate, Rhythm, No Edema, No Gallop, No JVD, No Murmur, Normal Peripheral Pulses Capillary Refill: Less Than 3 Seconds Gastrointestinal: normal bowel sounds, non tender, soft, no organomegaly Extremity: Normal Capillary Refill, Normal Inspection, Non Tender, No Calf Tenderness, No Pedal Edema, Other Neurologic/Psychiatric: Alert, Oriented x3, No Motor/Sensory Deficits, Normal Mood/Affect Skin: Normal Color, Warm/Dry Results Lab Laboratory Tests 10/27/18 04:20 10/28/18 05:50 Assessment/Plan Assessment/Plan Acute respiratory failure -Atypical pneumonia - Acute atypical pneumonia with hypoxia and atelectasis with severe sepsis -CXR is improving -cefepime-- change to omnicef -Solumedrol - change to prednisone taper -Samson cultures pending -Strep/legionella ag are negative -MRSA nasal swab -pt will need repeat CT scan as out patient. [place] -SVNS Q4 Hx of Paroxysmal Afib - currently sinus -Eliquis HILDA -Has home CPAP Anemia -Monitor CAD hx DOUG SAMUEL DO Oct 28, 2018 09:37
--- NOTE | 2018-10-28 11:56 | NUR ---
CM/SS. Patient discharged home today. DME: Coordinated new home O2 with patient/spouse preferred agency, [facility]. Agency understands to deliver portable to patient room and to partner with patient/spouse regarding home setup and further deliveries. Patient was with [facility] and his CPAP account was transferred to [facility]. However, for the O2, he chose to [facility] with [facility].
[2018-10-28 14:15] VITALS: BP 158/74
--- NOTE | 2018-10-28 14:15 | NUR ---
AMIRA FREEMAN demonstrates understanding of discharge instructions and accurately returns instructions upon questioning. Copy of Post-Discharge Instructions given to PT. AMIRA FREEMAN is able to manage continuing needs after discharge. Patients belongings returned to PT. Patient discharged from 429-1 on 10/28/18 at 1415. AMIRA FREEMAN left floor via W/C, accompanied by STAFF AND PER AUTO.
== END 2018-10-28 14:15 | disposition home or self-care (01) | DRG 871 ==
LOC: EDUNIT# 07:34 → ER 07:35 → ICU 09:28 → 4TH 10-25 09:45
PROVIDERS: ADMIT Family Medicine; ATTEND Family Medicine
DX: A41.9 Sepsis, unspecified organism (principal); R65.20 Severe sepsis without septic shock; J18.9 Pneumonia, unspecified organism; J96.01 Acute respiratory failure with hypoxia; J98.11 Atelectasis; J44.1 Chronic obstructive pulmonary disease with (acute) exacerbation; J44.0 Chronic obstructive pulmonary disease with (acute) lower respiratory infection; E11.65 Type 2 diabetes mellitus with hyperglycemia; T38.0X5A Adverse effect of glucocorticoids and synthetic analogues, initial encounter; I25.10 Atherosclerotic heart disease of native coronary artery without angina pectoris; E11.51 Type 2 diabetes mellitus with diabetic peripheral angiopathy without gangrene; I48.0 Paroxysmal atrial fibrillation; I10 Essential (primary) hypertension; E78.5 Hyperlipidemia, unspecified; G47.33 Obstructive sleep apnea (adult) (pediatric); E87.6 Hypokalemia; E83.42 Hypomagnesemia; D64.9 Anemia, unspecified; J30.2 Other seasonal allergic rhinitis; E78.00 Pure hypercholesterolemia, unspecified; K21.9 Gastro-esophageal reflux disease without esophagitis; M19.91 Primary osteoarthritis, unspecified site; M10.9 Gout, unspecified; M54.9 Dorsalgia, unspecified; F41.9 Anxiety disorder, unspecified; F32.9 Major depressive disorder, single episode, unspecified; Z95.5 Presence of coronary angioplasty implant and graft; Z79.84 Long term (current) use of oral hypoglycemic drugs; Z79.01 Long term (current) use of anticoagulants
CPT/HCPCS: 36415; 71045; 80053; 81000; 82274; 82805; 82962; 83605; 83735; 83880; 84100; 85025; 85610; 85730; 87040; 87088; 87449; 87804; 87899; 94640; 94760; 94761; 96361; 96365

== ENCOUNTER → 2018-12-01 | Outpatient (CLI) | payer MEDICARE, OTHER ==
[~2018-12-01] MED LIST changes: +CATHETER FLUSH 10 ML SYR IV PRN; +IOHEXOL 350 MG/ML 100 ML (OMNIPAQUE 350) VIAL IV ONE; +MAGN400T39 PO; +NS 100 ML (IVPB) BAG IV ONE; +PRED10TA22 PO; +RECEIVED CONTRAST (Hold Metformin) IV SCH
[2018-12-01 12:04] LABS: BUN/CREATININE RATIO 29; CREATININE SERUM 0.65 MG/DL (0.60-1.30); GFR ESTIMATED > 60
--- NOTE | 2018-12-01 13:05 | Diagnostic Imaging Report ---
PROCEDURE: CT chest with contrast only. TECHNIQUE: Multiple contiguous axial images were obtained through the chest after administration of intravenous contrast. INDICATION: Shortness of breath and pneumonia with interstitial lung disease and COPD. COMPARISON: Comparison is made with prior CT chest from 04/22/2017. FINDINGS: No axillary lymphadenopathy is seen. Previously noted right paraesophageal lymph node appears to be stable approximately 9-10 mm. A subcarinal node measures approximately 22 mm x 10 mm. There appear to be mildly prominent lymph nodes in the rodney bilaterally as well, indeterminant. No pericardial or pleural fluid is identified. Interlobular septal thickening in bilateral upper lobes anteriorly is noted, similar to perhaps slightly increased in the left upper lobe but increased in the right upper lobe since prior. There is also significant interlobular septal thickening of bilateral lower lobes, worsening in appearance since prior CT. There appears to be a component of airspace consolidation in the left lower lobe on today's study. No discrete mass is identified. The upper abdomen does show hepatic steatosis. No other abnormalities are seen. IMPRESSION: Worsening interstitial and airspace disease, as described when compared with prior CT from 04/22/2017. While this enlarged part may be chronic, possibility of some superimposed airspace pneumonia in the left lower lobe cannot be excluded. No discrete mass is seen. There are some mildly prominent lymph nodes in the mediastinum and rodney, indeterminate but potentially reactive. Continued followup is recommended. Dictated by: Dictated on workstation # [id number]
== END ==
LOC: RAD 11:26
PROVIDERS: ATTEND Nurse Practitioner Family
DX: J44.9 Chronic obstructive pulmonary disease, unspecified (principal); J18.9 Pneumonia, unspecified organism; G47.33 Obstructive sleep apnea (adult) (pediatric); R59.0 Localized enlarged lymph nodes
CPT/HCPCS: 36415; 71260; 82565; 84520

== ENCOUNTER 2018-12-16 05:37 | Outpatient (CLI) | payer MEDICARE ==
[~2018-12-16] VITALS: Ht 167.6 cm; Wt 78.0 kg
[~2018-12-16 05:37] MED LIST changes: -CATHETER FLUSH 10 ML SYR IV PRN; -IOHEXOL 350 MG/ML 100 ML (OMNIPAQUE 350) VIAL IV ONE; -NS 100 ML (IVPB) BAG IV ONE; -RECEIVED CONTRAST (Hold Metformin) IV SCH
[2018-12-16] MEDS ORDERED: METF-397 PO (09:23)
[2018-12-16] MEDS ORDERED: DOXY100T2 PO (09:23)
[2018-12-16] MEDS ORDERED: ROSU10TA27 PO (09:23)
== END 2018-12-16 10:46 | disposition home or self-care (01) ==
LOC: PREOP 05:37
PROVIDERS: ATTEND Internal Medicine Critical Care Medicine
DX: Z01.818 Encounter for other preprocedural examination (principal)

== ENCOUNTER 2018-12-17 07:57 | Day surgery (SDC) | payer MEDICARE, OTHER ==
[~2018-12-17] VITALS: Ht 167.6 cm; Wt 78.0 kg
[~2018-12-17 07:57] MED LIST changes: +DOXY100T2 PO; +METF-397 PO; +ROSU10TA27 PO
[2018-12-17] MEDS ORDERED: LIDOCAINE JELLY 2% 6 ML SYRINGE TOP ONE (07:58)
[2018-12-17] MEDS ORDERED: LIDOCAINE PF 1% 2 ML VIAL (OR ONLY) IJ ONE (07:58)
[2018-12-17] MEDS ORDERED: LIDOCAINE PF 2% 5 ML (XYLOCAINE) VIAL INJ ONE (07:58)
[2018-12-17 08:00] VITALS: BP 109/62
[2018-12-17] MEDS ORDERED: NS IV 500 ML 500 ML ONE (08:03)
--- OUTSIDE RECORDS SUMMARY | 2018-12-17 08:03 | XMS REPORT ---
Author Author ABDIRAHMAN MARIBEL [facility] Address [address] [place] [address] Care Team Providers Care Paper Steamer Name Role Phone MARIBEL GARY Unavailable PROBLEMS Type Condition ICD9-CM Code HLF24-MZ Code Onset Dates Condition Status SNOMED Code Problem Hypomagnesemia E83.42 Active 495429173 Problem Hyperlipidemia LDL goal <70 E78.5 Active 71318871 Problem Clostridium difficile diarrhea A04.7 Active [id number] Problem Type 2 diabetes mellitus without complication, without long-term current use of insulin E11.9 Active 444756998 Problem Encounter for Zostavax administration Z23 Active 584135882 Problem Encounter for diabetic foot exam E11.9 Active 53952772 Problem Diabetes type 2, controlled E11.9 Active 24950515 Problem Arthritis, lumbar spine M47.9 Active 738418621 Problem Other obesity due to excess calories E66.09 Active 218087164 Problem Body mass index (BMI) of 30.0-30.9 in adult Z68.30 Active 428985029 Problem Contact dermatitis, unspecified contact dermatitis type, unspecified trigger L25.9 Active 25986301 Problem History of shingles Z86.19 Active 924610054560659 Problem Pure hypercholesterolemia E78.0 Active 798612947 Problem Hx of senior living use 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 Active 763220532 Problem High triglycerides E78.1 Active 681074204 Problem Essential hypertension with goal blood pressure less than 130\/80 I10 Active 34487580 Problem Uncontrolled type 2 diabetes mellitus without complication, without long-term current use of insulin E11.65 Active 385218320 Problem Leg cramps, sleep related G47.62 Active 82292128 Problem Controlled type 2 diabetes mellitus without complication, without long -term current use of insulin E11.9 Active 888568037 Problem COPD exacerbation J44.1 Active 592655408 Problem Hyperlipidemia LDL goal <70 E78.5 Active 44331366 Problem Recurrent pneumonia J18.9 Active 704034687 ALLERGIES No Information ENCOUNTERS Encounter Location Date Diagnosis [address] [id number] [id number] Aug, [address] [id number][place] [address] Aug, COPD exacerbation J44.1 [facility] [address] [id number][place] [address] Jul, Encounter for immunization Z23 [facility] [address] [id number][place] [address] Jun, Type 2 diabetes mellitus without complication, without long-term current use of insulin E11.9 [address] [facility] [address] [id number][place] [address]22[address] May, Encounter for diabetic foot exam E11.9 [facility] [address] [id number][place] [address] May, [facility] [address] [id number][place] [address] May, [facility] [address] [id number][place] [id number] May, Diabetes type 2, controlled E11.9 and Contact dermatitis, unspecified contact dermatitis type, unspecified trigger L25.9 [facility] [address] [id number][place] [id number] Apr, [facility] [address] [facility] [id number] [address] Mar, [facility] [address] [facility] [id number][place] [address] February, [facility] [id number] [address] February, Diabetes type 2, controlled E11.9 ; Other obesity due to excess calories E66.09 ; Body mass index (BMI) of 30.0-30.9 in adult Z68.30 and History of shingles Z86.[address] [facility] [address] [id number][place] [address] Jan, Uncontrolled type 2 diabetes mellitus without complication, without long-term current use of insulin E11.[address] [facility] [address] [id number][place] [address] Nov, Hypomagnesemia E83.42 and Uncontrolled type 2 diabetes mellitus without complication, without long-term current use of insulin E11.[address] [facility] [address] [id number][place] [address] Nov, Uncontrolled type 2 diabetes mellitus without complication, without long-term current use of insulin E11.65 ; Hypomagnesemia E83.42 and Hyperlipidemia LDL goal <[address] [facility] [address] [id number], [place] [address]67[address] Oct, [facility] [address] [facility] [id number][place] [address] Sep, [facility] [address] [id number][place] [address] Aug, [facility] [address] [id number][place] [address] Aug, Hypomagnesemia E83.42 [facility] [address] [id number][place] [address] Aug, Uncontrolled type 2 diabetes mellitus without complication, without long-term current use of insulin E11.65 and Hypomagnesemia E83.[address] [facility] [address] [id number], [place] 111[address] Aug, [facility] [address] [id number][place] [address]744574[address] Jul, COPD exacerbation J44.[address] [facility] [address] [id number], [place] [address] Jul, Clostridium difficile diarrhea A04.[address] [facility] [address] [id number], [place] [address] Jun, [facility] [address] [id number], [place] [address] May, Clostridium difficile diarrhea A04.[address] [facility] [address] [id number], [place] 171832882 May, Clostridium difficile diarrhea A04.[address] [facility] [address] [id number], [place] [address]86325[address] May, Hypomagnesemia E83.[address] [facility] [address] [id number], [place] [address]48[address]307 May, Uncontrolled type 2 diabetes mellitus without complication, without long-term current use of insulin E11.65 ; Clostridium difficile diarrhea A04.7 and Hypomagnesemia E83.[address] [facility] [address] [id number], [place] 000859746 May, [facility] [address] [id number], [place] [address]8350[address] May, [facility] [address] [id number], [place] 65[address]647[address] Apr, Clostridium difficile diarrhea A04.7 and Hypomagnesemia E83.[address] [facility] [address] [id number], [place] [address]24[address] Apr, [facility] [address] [id number], [place] [address]682787 Apr, High triglycerides E78.[address] [facility] [address] [id number], [place] 460147997 February, Recurrent pneumonia J18.[address] [facility] [address] [id number], [place] 792415540 February, Hypomagnesemia E83.42 [facility] [address] [facility] [id number][place] [address]1958[place] February, [facility] [address] [id number], [place] [address] February, COPD exacerbation J44.[address] [facility] [address] [id number], [place] [address]35215150 February, [facility] [address] [id number], [place] 676484272 Jan, Uncontrolled type 2 diabetes mellitus without complication, without long-term current use of insulin E11.65 and Arthritis, lumbar spine M47.[address] [facility] [address] [id number], [place] [address]204[address] Dec, [facility] [address] [id number], [place] 382279692 Dec, [facility] [address] [id number], [place] [address]79[address] Oct, [facility] [address] [id number], [place] 690910489 Oct, Uncontrolled type 2 diabetes mellitus without complication, without long-term current use of insulin E11.[address] [facility] [address] [id number], [place] 166460293 Sep, Uncontrolled type 2 diabetes mellitus without complication, without long-term current use of insulin E11.[address] [facility] [address] [id number], [place] [address]36968[address] Aug, [facility] [address] [id number], [place] 742561097 Aug, [facility] [address] [facility] [id number] [place] [address] Aug, [facility] [address] [id number], [place] [address]29[address] Jul, [facility] [address] [id number], [place] 915851911 Jul, Uncontrolled type 2 diabetes mellitus without complication, without long-term current use of insulin E11.65 ; Encounter for immunization Z23 and Leg cramps, sleep related G47.[address] [facility] [address] [id number] [place] [address] May, [facility] [address] [id number], [place] 0099675[address] Apr, [facility] [address] [id number], [place] 6476388[address] Apr, Uncontrolled type 2 diabetes mellitus without complication, without long-term current use of insulin E11.65 and Hyperlipidemia LDL goal <70 E78.5 [facility] [address] [id number], [place] 463848832 Mar, [facility] [address] [id number], [place] 912184122 Mar, [facility] [address] [id number], [place] 776988030 Mar, Obstructive chronic bronchitis with exacerbation J44.1 [facility] [address] [id number] [address] February, [facility] [address] [id number], [place] 132090609 February, [facility] [address]00565100[place] [address]909[address]99- [address] February, [facility] [address] [id number], [place] 554113603 February, Controlled type 2 diabetes mellitus without complication, without long-term current use of insulin E11.9 [facility] [address] 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 [facility] [address] [id number], [place] 649459549 Jan, [facility] [address] [id number] [address] Jan, [facility] [address] [id number], [place] [id number] Dec, Arthritis, lumbar spine M47.9 ; Essential hypertension with goal blood pressure less than 130\/80 I10 and Pneumonia of left lower lobe due to infectious organism J18.9 [facility] [address] [id number], [place] 583161269 Dec, [facility] [address] [id number], [place] 251010857 Nov, Arthritis, lumbar spine M47.9 [facility] [address]00565100[place] [address]246 Nov, [facility] [address]00565100[place], [place] [address] Oct, [facility] [address] [id number], [place] 64[address]02089 Oct, High triglycerides E78.1 [facility] [address] [place] [address] AVE [id number], [place] 168998150 Oct, Diabetes type 2, controlled E11.9 ; Arthritis, lumbar spine M47.9 and Encounter for Zostavax administration Z23 [address]00565100[place] [address] Sep, [facility] [address] [id number], [place] [address]- [address] Aug, [facility] [address]00565100[place] [address]- 7924 Aug, [facility] [address] [id number], [place] 367242978 Jul, [facility] [address] [id number], [place] [id number] Jul, Encounter for immunization Z23 [facility] [address] [id number], [place] [address] 2546 Jun, [facility] [address] [id number], [place] 302568801 Jun, [facility] [address] [id number], [place] 964730549 Jun, Diabetes 250.00 ; Interstitial pulmonary disease 515 and DJD ( degenerative joint disease), lumbosacral 722.52 [facility] [address] [id number], [place] 737339136 Apr, [address] [facility] [id number] 501046480 Apr, [facility] [address] [id number], [place] [id number] Mar, DJD (degenerative joint disease), lumbosacral 722.52 and Lumbago 724.2 [facility] [address] [facility] [address] [id number], [place] 586225384 February, Lumbago 724.2 and Abnormal x-ray of thoracic spine 793.7 [facility] [address] [id number], [place] 442087907 February, Gout of knee 274.00 ; Lumbago with sciatica 724.3 and Interstitial pulmonary disease 515 [facility] [address] [facility] [address] [id number], [place] 728166149 February, [facility] [address] [id number], [place] [address]- [address]35 Jan, [facility] [address] [facility] [id number][place] [address]- 9414 Jan, [facility] [address]00565100[place], [place] [address]- 8533 Dec, [facility] [address]00565100[place], [place] [address]- 1653 Dec, [facility] [place] [facility] [address] [facility] [id number] [place] [address]- 4[address] Dec, 2014 [facility] [place] [facility] [address] [id number] [place] [address]- 3809 Dec, 2014 [facility] [place] [facility] [address] [id number] [place] [address]- 5116 Nov, 2014 [facility] [place] [facility] [address] [id number] [place] [address]- 4200 Nov, 2014 [facility] [place] [facility] [address] [id number] [place] [address]- 7337 Nov, 2014 [facility] [place] [facility] [address] [id number] [place] [address]- 9643 Nov, 2014 [facility] [place] [facility] [address] [facility] [id number] [place] [address]- 2144 Nov, 2014 [facility] [place] [facility] [address] [facility] [id number] [place] [address]- 3929 Nov, 2014 [facility] [place] [facility] [address] [facility] [id number] [place] [address]- 0811 Nov, 2014 [facility] [place] [facility] [address] [facility] [id number] [place] [address]- 7796 Nov, 2014 [facility] [place] [facility] [address] [facility] [id number] [place] [address]- 8608 12 Nov, 2014 [facility] [place] [facility] [address] [id number] [place] [address]- 0828 Nov, 2014 [facility] [place] [facility] [address] [id number] [place] [address]- 0031 Nov, 2014 [facility] [place] [facility] [address] [id number] [place] [address]- 8465 Nov, 2014 [facility] [place] [facility] [address] [facility] [id number] [place] [address]- 3380 Nov, 2014 [facility] [place] [facility] [address] [facility] [id number] [place] [address]- 8544 Oct, [facility] [place] [facility] [address] [id number] [place] [address]- 9933 Oct, [facility] [place] [facility] [address] [id number] [place] [address]- 8460 Oct, [facility] [place] [facility] [address] [id number] [place] [address]- 3743 Oct, [facility] [place] [facility] [address] [id number] [place] [address]- 4670 Oct, [facility] [place] [facility] [address] [id number] [place] [address]- 0370 Oct, [facility] [place] [facility] [address] [id number] [place] [address]- 6272 Oct, [facility] [place] [facility] [address] [id number] [place] [address]- 7377 Oct, [facility] [place] [facility] [address] [id number] [place] [address]- 0207 Sep, [facility] [place] [facility] [address] [id number] [place] [address]- 6096 Sep, [facility] [place] [facility] [address] [id number] [place] [address]- 3898 Aug, [facility] [place] [facility] [address] [id number] [place] [address]- 5968 Aug, [facility] [place] [facility] [address] [id number] [place] [address]- 3127 Aug, [facility] [place] [facility] [address] [id number] [place] [address]- 8952 Aug, [facility] [place] [facility] [address] [id number] [place] [address]- 9002 Jul, [facility] [place] [facility] [address] [id number] [place] [address]- 4235 Jul, [facility] [place] [facility] [address] [id number] [place] [address]- 3171 29 Jun, 2013 [facility] [place] [facility] [address] [id number] [place] [address]- 8326 29 Jun, 2013 [facility] [place] [facility] [address] [id number] [place] [address]- 2546 16 Jun, 2013 [facility] [place] [facility] [address] [id number] [place] [address] 2546 16 Jun, 2013 [facility] [place] [facility] [address] [id number] [place] [address]- 4711 Jun, 2013 [facility] [place] [facility] [address] [id number] [place] [address]- 0337 11 Jun, 2013 [facility] [place] [facility] [address] [id number] [place] [address]- 2703 04 Jun, 2013 [facility] [place] [facility] [address] [id number] [place] [address]- 5569 04 Jun, 2013 [facility] [place] [facility] [address] [id number] [place] [address]- 9675 Jun, 2013 [facility] [place] [facility] [address] [id number] [place] [address]- 6911 Jun, 2013 [facility] [place] [facility] [address] [id number] [place] [address]- 9296 Jun, [facility] [place] [facility] [address] [id number] [place] [address]- 1242 May, [facility] [place] [facility] [address] [id number] [place] [address]- 8788 May, [facility] [place] [facility] [address] [id number] [place] [address]- 3054 Apr, [facility] [place] [facility] [address] [id number] [place] [address]- 9957 Apr, [facility] [place] [facility] [address] [id number] [place] [address]- 0407 Apr, [facility] [place] [facility] [address] [id number] [place] [address]- 1457 Apr, [facility] [place] [facility] [address] [id number] [place] [address]- 8897 Apr, [facility] [place] [facility] [address] [id number] [place] [address]- 1455 Apr, [facility] [place] [facility] [address] [id number] [place] [address]- 6911 Apr, [facility] [place] [facility] [address] [id number] [place] [address]- 1593 Apr, [facility] [place] [facility] [address] [id number] [place] [address]- 9307 Apr, [facility] [place] [facility] [address] [id number] [place] [address]- 7473 Apr, [facility] [place] [facility] [address] [id number] [place] [address]- 9497 Mar, [facility] [place] [facility] [address] [id number] [place] [address]- 6656 Mar, [facility] [place] [facility] [address] [id number] [place] [address]- 5429 Mar, [facility] [place] [facility] [address] [id number] [place] [address]- 0082 Mar, [facility] [place] [facility] [address] [id number] [place] [address]- 8120 Mar, [facility] [place] [facility] [address] [id number] [place] [address]- 4093 Mar, [facility] [place] [facility] [address] [id number] [place] [address]- 4846 Mar, [facility] [place] [facility] [address] [id number] [place] [address]- 0564 Mar, [facility] [place] [facility] [address] [id number] [place] [address]- 8840 11 Mar, 2014 [facility] [place] [facility] [address] [id number] [place] [address]- 5915 Mar, [facility] [place] [facility] [address] [id number] [place] [address]- 9235 Mar, [facility] [place] [facility] [address] [id number] [place] [address]- 9763 Mar, [facility] [place] [facility] [address] [id number] [place] [address]- 6349 Mar, [facility] [place] [facility] [address] [id number] [place] [address]- 8569 Mar, [facility] [place] [facility] [address] [id number] [place] [address]- 6795 Mar, [facility] [place] [facility] [address] [id number] [place] [address]- 5416 Mar, [facility] [place] [facility] [address] [id number] [place] [address]- 5569 February, [facility] [place] [facility] [address] [id number] [place] [address]- 5736 February, [facility] [place] [facility] [address] [id number] [place] [address]- 1646 Jan, [facility] [place] [facility] [address] [id number] [place] [address]- 8617 Jan, [facility] [place] [facility] [address] [id number] [place] [address]- 2383 Jan, [facility] [place] [facility] [address] [id number] [place] [address]- 2727 Jan, [facility] [place] [facility] [address] [id number] [place] [address]- 0514 Dec, [facility] [place] [facility] [address] [id number] [place] [address]- 6062 Dec, [facility] [address] [id number] [place] [address]- 1797 Dec, [facility] [address] [id number] [place] [address]- 8165 Dec, [facility] [address] [id number] [place] [address]- 6347 Nov, [facility] [address] [id number] [place] [address]- 0586 Nov, [facility] [address] [id number] [place] [address] Oct, [facility] [address] [id number] [place] [address] Oct, [facility] [address] [id number] [place] [address] Oct, [facility] [address] [id number] [place] [address] Oct, [facility] [address] [id number] [place] [address] Oct, [facility] [address] [facility] [id number] [place] [address] Oct, [facility] [address] [id number][place] [address] Jun, [facility] [address] [id number][place] [address] Jun, [facility] [address] [id number], [place] [address] Jun, [facility] [address] [id number] [place] [id number] Jun, [facility] [address] [id number] [place] [address] Apr, [facility] [address] [facility] [id number], [place] [address] Apr, [facility] [address] [id number] [place] [address] Apr, [facility] [place] [facility] [address] [id number] [place] [address] Apr, [facility] [place] [facility] [address] [id number] [place] [address] Mar, [facility] [place] [facility] [address] [id number] [place] [address] Mar, [facility] [place] [facility] [address] [id number] [place] [address] February, [facility] [place] [facility] [address] [id number] [place] [address] Jan, [facility] [place] [facility] [address] [id number] [place] [address] Jan, [facility] [place] [facility] [address] [id number] [place] [address] Jan, [facility] [place] [facility] [address] [id number] [place] [address] Dec, [facility] [place] [facility] [address] [id number] [place] [address] Dec, [facility] [place] [facility] [address] [id number] [place] [address] Dec, [facility] [place] [facility] [address] [id number] [place] [address] Nov, [facility] [place] [facility] [address] [id number] [place] [address] Nov, [facility] [place] [facility] [address] [id number] [place] [address] Oct, [facility] [place] [facility] [address] [id number] [place] [address] Oct, [facility] [place] [facility] [address] [id number] [place] [address] Oct, [facility] [place] [facility] [address] [id number] [place] [address] Sep, [facility] [place] [facility] [address] [id number] [place] [address] Sep, [facility] [place] [facility] [address] [id number] [place] [address] Sep, [facility] [place] [facility] [address] [id number] [place] [address] Sep, [facility] [place] [facility] [address] [id number] [place] [address] Sep, [facility] [place] [facility] [address] [id number] [place] [address] Sep, [facility] [place] [facility] [address] [id number] [place] [address] Sep, [facility] [place] [facility] [address] [id number] [place] [address] Sep, [facility] [place] [facility] [address] [id number] [place] [address] Aug, [facility] - [facility] [place] [facility] [address] [id number] [place] [address] Aug, [facility] [place] [facility] [address] [id number] [place] [address] Jul, [facility] [place] [facility] [address] [id number] [place] [address] Jul, [facility] [place] [facility] [address] [id number] [place] [address] Jul, [facility] [place] [facility] [address] [id number] [place] [address] Jul, [facility] [place] [facility] [address] [id number] [place] [address] Jun, [facility] [place] [facility] [address] [id number] [place] [address] 13 Jun, 2011 [facility] [address] [id number] [place] [id number] 13 Jun, 2012 [facility] [address] [id number] [place] [id number] 13 Jun, 2011 [facility] [place] [facility] [address] [id number] [place] [address] 11 Jun, 2011 [facility] [place] [facility] [address] [id number] [place] [address] 10 Jun, 2012 [facility] [place] [facility] [address] [id number] [place] [address] 08 Jun, 2012 [facility] [place] [facility] [address] [id number] [place] [address] 05 Jun, 2012 [facility] [place] [facility] [address] [id number] [place] [address] 31 May, 2012 [facility] [place] [facility] [address] [id number] [place] [address] 30 May, 2012 [facility] [place] [facility] [address] [id number] [place] [address] May, [facility] [place] [facility] [address] [id number] [place] [address] May, [facility] [place] [facility] [address] [id number] [place] [address] May, [facility] [place] [facility] [address] [id number] [place] [address] May, [facility] [place] [facility] [address] [id number] [place] [id number] May, [facility] [place] [facility] [address] [id number] [place] [address] Apr, [facility] [place] [facility] [address] [id number] [id number] Apr, [facility] [place] [facility] [address] [id number] [place] [address] Apr, [facility] [place] [facility] [address] [id number] [place] [address] Apr, [facility] [place] [facility] [address] [id number] [place] [address] Apr, [facility] [place] [facility] [address] [id number] [place] [address] Apr, [facility] [place] [facility] [address] [id number] [place] [address] Apr, [facility] [place] [facility] [address] [id number] [place] [address] Apr, [facility] [place] [facility] [address] [id number] [place] [address] Apr, [facility] [place] [facility] [address] [id number] [place] [address] Apr, [facility] [place] [facility] [address] [id number] [place] [address] Mar, [facility] [place] [facility] [address] [id number] [place] [address] February, [facility] [place] [facility] [address] [id number] [place] [address] Jan, [facility] [place] [facility] [address] [id number] [address] Dec, [facility] [place] [facility] [address] [id number] [place] [address] Dec, [facility] [place] [facility] [address] [id number] [place] [id number] Nov, [facility] [place] [facility] [address] [id number] [place] [address] Nov, [facility] [place] [facility] [address] [id number][place] [address] Nov, [facility] [address] [id number] [place] [address] Nov, [facility] [place] [facility] [address] [id number] [place] [address] Nov, [facility] [address] [facility] [id number] [place] [address] Nov, [facility] [place] [facility] [address] [id number] [place] [address] Nov, [facility] [address] [id number] [place] [id number] Oct, [facility] [place] [facility] [address] [id number] [place] [address] Oct, [facility] [address] [id number] [place] [address] Oct, [facility] [address] [id number] [place] [address] Oct, [facility] [address] [id number] [place] [address] Oct, [facility] [address] [id number] [address] Oct, [facility] [address] [id number] [place] [address] Sep, [facility] [place] [facility] [address] [id number], [place] [address] Aug, [facility] [place] [facility] [address] [id number] [place] [address] Jul, [facility] [place] [facility] [address] [facility] [id number] [place] [address] Jul, [facility] [place] [facility] [address] [id number], [place] [address] Jul, [facility] [address] [facility] [id number] [place] [address] Jul, [facility] [address] [facility] [id number] [place] [address] Jul, IMMUNIZATIONS No Known Immunizations SOCIAL HISTORY Never Assessed REASON FOR VISIT Requests return call PLAN OF CARE VITAL SIGNS MEDICATIONS Unknown Medications RESULTS No Results PROCEDURES No Known procedures INSTRUCTIONS MEDICATIONS ADMINISTERED No Known Medications MEDICAL (GENERAL) HISTORY Type Description Date Medical [...] for repeated colonoscopy Medical History Clostridium Diff Medical History DM eye exam Surgical History heart cath with stent 05/2012 Surgical History heart cath with stent 11/13/12 Surgical History ventral hernia repair Surgical History choleycysectomy Surgical History lung biospy 2003 Surgical History kidney stones removed 1989 Surgical History colonoscopy 03/27/2017 Surgical History Right arm Rotator Cuff Repair 12/2017 Hospitalization History pneumonia 04/2013 Hospitalization History pneumonia, sepsis, a f ib with RVR 12/2015 Hospitalization History bilateral pneumonia and sepsis 01/2016 Hospitalization History Pneumonia, leukocytosis-[facility] 03/09/17 Hospitalization History ER X2 for Diarrhea 04/2017
--- OUTSIDE RECORDS SUMMARY | 2018-12-17 08:03 | XMS REPORT ---
Author Author ABDIRAHMAN MARIBEL [facility] Address [address] [place] [address] Care Team Providers Care Choir Accompanist Name Role Phone MARIBEL GARY Unavailable PROBLEMS Type Condition ICD9-CM Code RRT50-KL Code Onset Dates Condition Status SNOMED Code Problem Hypomagnesemia E83.42 Active 038552400 Problem Hyperlipidemia LDL goal <70 E78.5 Active 14308580 Problem Clostridium difficile diarrhea A04.7 Active 7225196986330 Problem Type 2 diabetes mellitus without complication, without long-term current use of insulin E11.9 Active 473952279 Problem Encounter for Zostavax administration Z23 Active 745902995 Problem Encounter for diabetic foot exam E11.9 Active 26558647 Problem Diabetes type 2, controlled E11.9 Active 37310011 Problem Arthritis, lumbar spine M47.9 Active 143049278 Problem Other obesity due to excess calories E66.09 Active 903959770 Problem Body mass index (BMI) of 30.0-30.9 in adult Z68.30 Active 175596059 Problem Contact dermatitis, unspecified contact dermatitis type, unspecified trigger L25.9 Active 17103205 Problem History of shingles Z86.19 Active 057403369235175 Problem Pure hypercholesterolemia E78.0 Active 748413993 Problem Hx of skilled nursing use 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 Active 813162658 Problem High triglycerides E78.1 Active 601278674 Problem Essential hypertension with goal blood pressure less than 130\/80 I10 Active 98451452 Problem Uncontrolled type 2 diabetes mellitus without complication, without long-term current use of insulin E11.65 Active 668080425 Problem Leg cramps, sleep related G47.62 Active 84051273 Problem Controlled type 2 diabetes mellitus without complication, without long -term current use of insulin E11.9 Active 791057722 Problem COPD exacerbation J44.1 Active 726124252 Problem Hyperlipidemia LDL goal <70 E78.5 Active 91288416 Problem Recurrent pneumonia J18.9 Active 838323221 ALLERGIES No Information ENCOUNTERS Encounter Location Date Diagnosis [facility] [address] [id number] [id number] Aug, COPD exacerbation J44.1 [facility] [address] [id number] [id number] Jul, Encounter for immunization Z23 [facility] [address] [address] [id number] [address] Jun, Type 2 diabetes mellitus without complication, without long-term current use of insulin E11.9 [facility] [address] [facility] [address] [id number][place] [address] May, Encounter for diabetic foot exam E11.9 [facility] [address] [facility] [address] [id number], [place] [address] May, [facility] [address] [address] [facility] [address] [id number][place] [address] May, [facility] [address] [place] [address] AVE [id number], [place] [address] May, Diabetes type 2, controlled E11.9 and Contact dermatitis, unspecified contact dermatitis type, unspecified trigger L25.9 [facility] [address] [id number], [place] [address] Apr, [facility] [id number] [address] Mar, [facility] [address] [id number] [address] February, [facility] [address] [id number][place] [address] February, Diabetes type 2, controlled E11.9 ; Other obesity due to excess calories E66.09 ; Body mass index (BMI) of 30.0-30.9 in adult Z68.30 and History of shingles Z86.19 [facility] [address] [id number], [place] [address] Jan, Uncontrolled type 2 diabetes mellitus without complication, without long-term current use of insulin E11.[address] [facility] [address] [id number], [place] [address] Nov, Hypomagnesemia E83.42 and Uncontrolled type 2 diabetes mellitus without complication, without long-term current use of insulin E11.[address] [facility] [address] [id number], [place] [address] Nov, Uncontrolled type 2 diabetes mellitus without complication, without long-term current use of insulin E11.65 ; Hypomagnesemia E83.42 and Hyperlipidemia LDL goal <70 E78.[address] [facility] [address] [id number], [place] [address] Oct, [facility] [address] [facility] [id number] [address] Sep, [facility] [address] [id number], [place] [address] Aug, [facility] [address] [id number], [place] [address] Aug, Hypomagnesemia E83.[address] [facility] [address] [id number], [place] [address] Aug, Uncontrolled type 2 diabetes mellitus without complication, without long-term current use of insulin E11.65 and Hypomagnesemia E83.[address] [facility] [address] [id number], [place] [address] Aug, [facility] [address] [id number], [place] [address] Jul, COPD exacerbation J44.[address] [facility] [address] [id number], [place] [address] Jul, Clostridium difficile diarrhea A04.[address] [facility] [address] [id number], [place] [address] Jun, [facility] [address] [id number], [place] [address] May, Clostridium difficile diarrhea A04.[address] [facility] [address] [id number], [place] [address]698[address] May, Clostridium difficile diarrhea A04.[address] [facility] [address] [id number], [place] [address] May, Hypomagnesemia E83.[address] [facility] [address] [id number], [place] [address]40[address] May, Uncontrolled type 2 diabetes mellitus without complication, without long-term current use of insulin E11.65 ; Clostridium difficile diarrhea A04.7 and Hypomagnesemia E83.[address] [facility] [address] [id number], [place] [address] May, [facility] [address] [id number][place] [address] May, [facility] [address] [id number], [place] 1948[address]32 Apr, Clostridium difficile diarrhea A04.7 and Hypomagnesemia E83.[address] [facility] [address] [id number], [place] [address] Apr, [facility] [address] [id number], [place] [address] Apr, High triglycerides E78.[address] [facility] [address] [id number], [place] 398[address] February, Recurrent pneumonia J18.[address] [facility] [address] [id number], [place] 612487399 February, Hypomagnesemia E83.42 [facility] [address] [facility] [id number], [place] [address] February, [facility] [address] [id number], [place] 12068[address]34 February, COPD exacerbation J44.[address] [facility] [address] [id number] [place] [address] February, [facility] [address] [id number], [place] [address] Jan, Uncontrolled type 2 diabetes mellitus without complication, without long-term current use of insulin E11.65 and Arthritis, lumbar spine M47.[address] [facility] [address] [id number], [place] [address] Dec, [facility] [address] [id number], [place] [address]958[address] Dec, [facility] [address] [id number], [place] [address] Oct, [facility] [address] [id number], [place] [address] Oct, Uncontrolled type 2 diabetes mellitus without complication, without long-term current use of insulin E11.[address] [facility] [address] [id number], [place] 958258522 Sep, Uncontrolled type 2 diabetes mellitus without complication, without long-term current use of insulin E11.[address] [facility] [address] [id number], [place] [address]29230[address] Aug, [facility] [address] [id number], [place] [id number] Aug, [facility] [address] [facility] [id number], [place] [address] Aug, [facility] [address] [id number], [place] [address]48110[address] Jul, [facility] [address] [id number], [place] 481450787 Jul, Uncontrolled type 2 diabetes mellitus without complication, without long-term current use of insulin E11.65 ; Encounter for immunization Z23 and Leg cramps, sleep related G47.[address] [facility] [address] [id number], [place] 105986089 May, [facility] [address] [id number], [place] [address]678[address] Apr, [facility] [address] [id number], [place] [address]407[address]96 Apr, Uncontrolled type 2 diabetes mellitus without complication, without long-term current use of insulin E11.65 and Hyperlipidemia LDL goal <70 E78.5 [facility] [address] [id number], [place] 059963974 Mar, [facility] [address] [id number], [place] 39474[address] Mar, [facility] [address] [address] [facility] [address] [id number], [place] 536671169 Mar, Obstructive chronic bronchitis with exacerbation J44.1 [facility] [address]00565100[place] [address] February, [facility] [address] [facility] [address] [id number], [place] 467335495 February, [facility] [id number] [place] [address] February, [facility] [address] [facility] [address] [id number], [place] 4980[address]750 February, Controlled type 2 diabetes mellitus without complication, without long-term current use of insulin E11.9 [facility] [address]00565100[place] [address]89- 4056 February, [facility] [address] [id number], [place] 929681266 Jan, Pneumonia of both lungs due to infectious organism, unspecified part of lung J18.9 ; Pure hypercholesterolemia E78.0 and Hx of skilled nursing use 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 [facility] [address] [id number], [place] 595237220 Jan, [facility] [address] [place] [address]33 Jan, [facility] [address] [id number], [place] 592291630 Dec, Arthritis, lumbar spine M47.9 ; Essential hypertension with goal blood pressure less than 130\/80 I10 and Pneumonia of left lower lobe due to infectious organism J18.9 [facility] [address] [id number], [place] 147765771 Dec, [facility] [address] [id number], [place] [address]4524424 Nov, Arthritis, lumbar spine M47.9 [facility] [address]00565100[place] [address]- 7634 Nov, [facility] [address]00565100[place], [place] [address] Oct, [facility] [address] [id number], [place] 068212999 Oct, High triglycerides E78.1 [facility] [address] [id number], [place] 297294949 Oct, Diabetes type 2, controlled E11.9 ; Arthritis, lumbar spine M47.9 and Encounter for Zostavax administration Z23 [facility] [address]00565100[place] [address] Sep, [facility] [address] [id number] [address]- 4971 Aug, [facility] [address] [id number], [place] [address]- 6[address] Aug, [facility] [address] [id number], [place] [address]98[address]29 Jul, [facility] [address] [id number], [place] 200360325 Jul, Encounter for immunization Z23 [facility] [address] [id number] [address] Jun, [facility] [address] [id number], [place] [address]66212990 Jun, [facility] [address] [id number], [place] 892222744 Jun, Diabetes 250.00 ; Interstitial pulmonary disease 515 and DJD ( degenerative joint disease), lumbosacral 722.52 [facility] [address] [id number], [place] 607045450 Apr, [facility] [address] [facility] [id number] [address]578[place]473 Apr, [facility] [address] [id number], [place] 704849307 Mar, DJD (degenerative joint disease), lumbosacral 722.52 and Lumbago 724.2 [facility] [address] [id number], [place] 467443491 February, Lumbago 724.2 and Abnormal x-ray of thoracic spine 793.7 [facility] [address] [id number], [place] 209763557 February, Gout of knee 274.00 ; Lumbago with sciatica 724.3 and Interstitial pulmonary disease 515 [facility] [address] [id number], [place] 217078573 February, [facility] [address]65100[place] 47259088- [address]308 Jan, [facility] [address]65100[place], [place] 43771429- 9188 Jan, [facility] [address]00565100[place], [place] [address]- 8857 Dec, [facility] [address]65100[place], [place] 64554807- 7751 Dec, [facility] [address]00565100[place] 682[place]- 2637 Dec, [facility] [place] [facility] [address] [id number] [place] [address]- 5981 Dec, [facility] [place] [facility] [address] [id number] [place] [address]- 3079 Nov, 2014 [facility] [place] [facility] [address] [id number] [place] [address]- 2546 Nov, 2014 [facility] [place] [facility] [address] [id number] [place] [address]- 5690 Nov, 2014 [facility] [place] [facility] [address] [id number] [place] [address]- 3825 Nov, 2014 [facility] [place] [facility] [address] [id number] [place] [address]- 4796 Nov, 2014 [facility] [place] [facility] [address] [facility] [id number] [place] [address]- 3095 Nov, 2014 [facility] [place] [facility] [address] [facility] [id number] [place] [address]- 9973 Nov, 2014 [facility] [place] [facility] [address] [facility] [id number] [place] [address]- 6140 Nov, 2014 [facility] [place] [facility] [address] [facility] [id number] [place] [address]- 5301 Nov, 2014 [facility] [place] [facility] [address] [facility] [id number] [place] [address]- 7469 Nov, 2014 [facility] [place] [facility] [address] [facility] [id number] [place] [address]- 4858 Nov, 2014 [facility] [place] [facility] [address] [facility] [id number] [place] [address]- 0606 Nov, 2014 [facility] [place] [facility] [address] [id number] [place] [address]- 2158 Nov, 2014 [facility] [place] [facility] [address] [facility] [id number] [place] [address]- 5433 Oct, [facility] [place] [facility] [address] [facility] [id number] [place] [address]- 1759 Oct, [facility] [place] [facility] [address] [id number] [place] [address]- 9629 Oct, [facility] [place] [facility] [address] [id number] [place] [address]- 4001 Oct, [facility] [place] [facility] [address] [id number] [place] [address]- 0514 Oct, [facility] [place] [facility] [address] [id number] [place] [address]- 2259 Oct, [facility] [place] [facility] [address] [id number] [place] [address]- 1024 Oct, [facility] [place] [facility] [address] [id number] [place] [address]- 9209 Oct, [facility] [place] [facility] [address] [id number] [place] [address]- 9533 Sep, [facility] [place] [facility] [address] [id number] [place] [address]- 2568 Sep, [facility] [place] [facility] [address] [id number] [place] [address]- 5607 Aug, [facility] [place] [facility] [address] [facility] [id number] [place] [address]- 8913 Aug, [facility] [place] [facility] [address] [id number] [place] [address]- 4378 Aug, [facility] [place] [facility] [address] [id number] [place] [address]- 1171 Aug, [facility] [place] [facility] [address] [id number] [place] [address]- 2439 Jul, [facility] [place] [facility] [address] [id number] [place] [address]- 3092 Jul, [facility] [place] [facility] [address] [id number] [place] 1715 29 Jun, 2014 [facility] [place] [facility] [address] [id number] [place] [address]- 5088 29 Jun, 2013 [facility] [place] [facility] [address] [id number] [place] [address]- 9845 16 Jun, 2013 [facility] [place] [facility] [address] [id number] [place] [address]- 2188 16 Jun, 2013 [facility] [place] [facility] [address] [id number] [place] [address]- 3674 Jun, 2013 [facility] [place] [facility] [address] [id number] [place] [address]- 6758 11 Jun, 2013 [facility] [place] [facility] [address] [id number] [place] [address]- 6717 Jun, 2013 [facility] [place] [facility] [address] [id number] [place] [address]- 3952 Jun, 2013 [facility] [place] [facility] [address] [id number] [place] [address]- 7864 Jun, 2013 [facility] [place] [facility] [address] [id number] [place] [address]- 0306 Jun, [facility] [place] [facility] [address] [id number] [place] [address]- 7398 Jun, [facility] [place] [facility] [address] [id number] [place] [address]- 5114 May, [facility] [place] [facility] [address] [id number] [place] [address]- 0419 May, [facility] [place] [facility] [address] [id number] [place] [address]- 1772 Apr, [facility] [place] [facility] [address] [id number] [place] [address]- 4395 Apr, [facility] [place] [facility] [address] [id number] [place] [address]- 8740 Apr, [facility] [place] [facility] [address] [id number] [place] [address]- 5429 Apr, [facility] [place] [facility] [address] [id number] [place] [address]- 6048 Apr, [facility] [place] [facility] [address] [id number] [place] [address]- 0789 Apr, [facility] [place] [facility] [address] [id number] [place] [address]- 9944 Apr, [facility] [place] [facility] [address] [id number] [place] [address]- 9997 Apr, [facility] [place] [facility] [address] [id number] [place] [address]- 7994 Apr, [facility] [place] [facility] [address] [id number] [place] [address]- 7597 Apr, [facility] [place] [facility] [address] [id number] [place] [address]- 4185 Mar, [facility] [place] [facility] [address] [id number] [place] [address]- 8913 Mar, [facility] [place] [facility] [address] [id number] [place] [address]- 2141 Mar, [facility] [place] [facility] [address] [id number] [place] [address]- 7785 Mar, [facility] [place] [facility] [address] [id number] [place] [address]- 7262 Mar, [facility] [place] [facility] [address] [id number] [place] [address]- 9981 Mar, [facility] [place] [facility] [address] [id number] [place] [address]- 6771 Mar, [facility] [place] [facility] [address] [id number] [place] [address]- 3115 Mar, [facility] [place] [facility] [address] [id number] [place] [address]- 8671 Mar, [facility] [place] [facility] [address] [id number] [place] [address]- 9294 11 Mar, 2014 [facility] [place] [facility] [address] [id number] [place] [address]- 5345 Mar, [facility] [place] [facility] [address] [id number] [place] [address]- 9509 Mar, [facility] [place] [facility] [address] [id number] [place] [address]- 6128 Mar, [facility] [place] [facility] [address] [id number] [place] [address]- 8502 Mar, [facility] [place] [facility] [address] [id number] [place] [address]- 1562 Mar, [facility] [place] [facility] [address] [id number] [place] [address]- 0024 Mar, [facility] [place] [facility] [address] [id number] [place] [address]- 2986 February, [facility] [place] [facility] [address] [id number] [place] [address]- 0891 February, [facility] [place] [facility] [address] [id number] [place] [address]- 3725 Jan, [facility] [place] [facility] [address] [id number] [place] [address]- 3702 Jan, [facility] [place] [facility] [address] [id number] [place] [address]- 7422 Jan, [facility] [place] [facility] [address] [id number] [place] [address]- 7719 Jan, [facility] [place] [facility] [address] [id number] [place] [address]- 6693 Dec, [facility] [place] [facility] [address] [id number] [place] [address]- 5482 Dec, [facility] [place] [facility] [address] [id number] [place] [address]- 1672 Dec, [facility] [address] [id number] [place] [address]- 3594 Dec, [facility] [address] [id number] [place] [address]- 0311 Nov, [facility] [address] [id number] [place] [address]- 6366 Nov, [facility] [address] [id number] [place] [address]- 8224 Oct, [facility] [address] [id number] [place] [address]- 8110 Oct, [facility] [address] [id number], [place] [address]- 9873 Oct, [facility] [address] [id number] [place] [address]- 1832 Oct, [facility] [address] [id number], [place] [address]- 8157 Oct, [facility] [address] [id number], [place] [address]- 8177 Oct, [facility] [address] [facility] [id number][place] [address]- 0609 Jun, [facility] [address] [id number], [place] [address] Jun, [facility] [address] [id number], [place] [address] Jun, [facility] [address] [id number] [id number] Jun, [facility] [address] [id number], [place] [address] Apr, [facility] [place] [facility] [address] [id number], [place] [address] Apr, [facility] [place] [facility] [address] [id number], [place] [address] Apr, [facility] [address] [id number] [place] [address] Apr, [facility] [place] [facility] [address] [id number] [place] [address] Mar, [facility] [place] [facility] [address] [id number] [place] [address] Mar, [facility] [place] [facility] [address] [id number] [place] [address] February, [facility] [address] [id number] [place] [address] Jan, [facility] [place] [facility] [address] [id number] [place] [address] Jan, [facility] [address] [id number] [place] [address] Jan, [facility] [place] [facility] [address] [id number] [place] [address] Dec, [facility] [address] [id number] [place] [address] Dec, [facility] [place] [facility] [address] [id number] [place] [address] Dec, [facility] [address] [id number] [place] [address] Nov, [facility] [place] [facility] [address] [id number] [place] [address] Nov, [facility] [place] [facility] [address] [id number] [place] [address] Oct, [facility] [place] [facility] [address] [id number] [place] [address] Oct, [facility] [place] [facility] [address] [id number] [place] [address] Oct, [facility] [place] [facility] [address] [id number] [place] [address] Sep, [facility] [place] [facility] [address] [id number] [place] [address] Sep, [facility] [place] [facility] [address] [id number] [place] [address] Sep, [facility] [place] [facility] [address] [id number] [place] [address] Sep, [facility] [place] [facility] [address] [id number] [place] [address] Sep, [facility] [place] [facility] [address] [id number] [place] [address] Sep, [facility] [place] [facility] [address] [id number] [place] [address] Sep, [facility] [place] [facility] [address] [id number] [place] [address] Sep, [facility] [place] [facility] [address] [id number] [place] [address] Aug, [facility] [place] [facility] [address] [id number] [place] [address] Aug, [facility] [place] [facility] [address] [facility] [id number] [place] [address] Jul, [facility] [place] [facility] [address] [id number] [place] [address] 2015 Jul, [facility] [place] [facility] [address] [id number] [place] [address] Jul, [facility] [place] [facility] [address] [id number] [place] [address] Jul, [facility] [place] [facility] [address] [id number] [place] [address] Jun, [facility] [place] [facility] [address] [id number] [place] [address] Jun, 2011 [facility] [address] [id number] [place] [id number] Jun, 2011 [facility] [address] [id number] [place] [id number] Jun, 2011 [facility] [place] [facility] [address] [id number] [place] [address] 11 Jun, 2011 [facility] [place] [facility] [address] [id number] [place] [address] 10 Jun, 2011 [facility] [place] [facility] [address] [id number] [place] [address] 08 Jun, 2012 [facility] [place] [facility] [address] [id number] [place] [address] 05 Jun, 2012 [facility] [place] [facility] [address] [id number] [id number] [address] 31 May, 2012 [facility] [place] [facility] [address] [id number] [place] [address] 30 May, 2012 [facility] [place] [facility] [address] [id number] [place] [address] May, [facility] [place] [facility] [address] [id number] [place] [address] May, [facility] [place] [facility] [address] [id number] [place] [address] May, [facility] [place] [facility] [address] [id number] [place] [address] May, [facility] [place] [facility] [address] [id number] [place] [id number] May, [facility] [place] [facility] [address] [id number] [place] [address] Apr, [facility] [place] [facility] [address] [id number] [place] [id number] Apr, [facility] [place] [facility] [address] [id number] [place] [address] Apr, [facility] [place] [facility] [address] [id number] [place] [address] Apr, [facility] [place] [facility] [address] [id number] [place] [address] Apr, [facility] [place] [facility] [address] [id number] [place] [address] Apr, [facility] [place] [facility] [address] [id number] [place] [address] Apr, [facility] [place] [facility] [address] [id number] [place] [address] Apr, [facility] [place] [facility] [address] [id number] [place] [address] Apr, [facility] [place] [facility] [address] [id number] [place] [address] Apr, [facility] [place] [facility] [address] [id number] [place] [address] Mar, [facility] [place] [facility] [address] [id number] [place] [address] February, [facility] [place] [facility] [address] [id number] [place] [address] Jan, [facility] [place] [facility] [address] [id number] [place] [address] Dec, [facility] [place] [facility] [address] [id number] [place] [address] Dec, [facility] [place] [facility] [address] [id number] [place] [id number] Nov, [facility] [place] [facility] [address] [id number] [place] [address] Nov, [facility] [place] [facility] [address] [id number] [place] [address] Nov, [facility] [place] [facility] [address] [id number] [place] [address] Nov, [facility] [place] [facility] [address] [id number] [place] [address] Nov, [facility] [place] [facility] [address] [id number] [place] [address] Nov, [facility] [place] [facility] [address] [id number] [place] [address] Nov, [facility] [place] [facility] [address] [id number] [place] [id number] Oct, [facility] [place] [facility] [address] [id number] [place] [address] Oct, [facility] [place] [facility] [address] [id number] [place] [address] Oct, [facility] [place] [facility] [address] [id number] [place] [address] Oct, [facility] [place] [facility] [address] [id number] [place] [address] Oct, [facility] [place] [facility] [address] [id number] [place] [address] Oct, [facility] [place] [facility] [address] [facility] [id number] [place] [address] Sep, [facility] [place] [facility] [address] [id number] [place] [address] Aug, [facility] [place] [facility] [address] [id number] [place] [address] Jul, [facility] [place] [facility] [address] [id number] [place] [address] Jul, [facility] [place] [facility] [address] [id number] [place] [address] Jul, [facility] [place] [facility] [address] [id number] [place] [address] Jul, [facility] [address] [facility] [id number] [place] [address] Jul, IMMUNIZATIONS No Known Immunizations SOCIAL HISTORY Never Assessed REASON FOR VISIT pal script PLAN OF CARE VITAL SIGNS MEDICATIONS Medication Instructions Dosage Frequency Start Date End Date Duration Status Incruse Ellipta 62.5 MCG/INH Inhalation Once a day 1 puff 24h Aug, Active Trulicity 0.75 MG/0.5ML Subcutaneous once weekly 0.5 ml Jul, Active RESULTS No Results PROCEDURES No Known [...]
--- OUTSIDE RECORDS SUMMARY | 2018-12-17 08:04 | XMS REPORT ---
Author Author ABDIRAHMAN MARIBEL [facility] Address [address] [place] [address] Care Team Providers Care Railroad Signal Technician Name Role Phone MARIBEL GARY Unavailable PROBLEMS Type Condition ICD9-CM Code TGI36-IM Code Onset Dates Condition Status SNOMED Code Problem Hypomagnesemia E83.42 Active 646191085 Problem Hyperlipidemia LDL goal <70 E78.5 Active 18257671 Problem Clostridium difficile diarrhea A04.7 Active 2990243737681 Problem Type 2 diabetes mellitus without complication, without long-term current use of insulin E11.9 Active 196481917 Problem Encounter for Zostavax administration Z23 Active 041912810 Problem Encounter for diabetic foot exam E11.9 Active 18023916 Problem Diabetes type 2, controlled E11.9 Active 64836861 Problem Arthritis, lumbar spine M47.9 Active 963949688 Problem Other obesity due to excess calories E66.09 Active 444873711 Problem Body mass index (BMI) of 30.0-30.9 in adult Z68.30 Active 095769184 Problem Contact dermatitis, unspecified contact dermatitis type, unspecified trigger L25.9 Active 27377181 Problem History of shingles Z86.19 Active [id number] Problem Pure hypercholesterolemia E78.0 Active 078714689 Problem Hx of skilled nursing use 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 Active 536746997 Problem High triglycerides E78.1 Active 561702266 Problem Essential hypertension with goal blood pressure less than 130\/80 I10 Active 73999574 Problem Uncontrolled type 2 diabetes mellitus without complication, without long-term current use of insulin E11.65 Active 654336609 Problem Leg cramps, sleep related G47.62 Active 88868469 Problem Controlled type 2 diabetes mellitus without complication, without long -term current use of insulin E11.9 Active 268758998 Problem COPD exacerbation J44.1 Active 469586755 Problem Hyperlipidemia LDL goal <70 E78.5 Active 97059675 Problem Recurrent pneumonia J18.9 Active 308797450 ALLERGIES No Information ENCOUNTERS Encounter Location Date Diagnosis [address] [id number] [place] [id number] Jul, Encounter for immunization Z23 [facility] [address] [id number] [place] [address] Jun, Type 2 diabetes mellitus without complication, without long-term current use of insulin E11.[address] [facility] [address] [id number] [place] [address] May, Encounter for diabetic foot exam E11.9 [facility] [address] [facility] [address] [id number] [place] [id number] May, [facility] [id number] [place] [address] May, [facility] [address] [facility] [address] [id number] [place] [address] May, Diabetes type 2, controlled E11.9 and Contact dermatitis, unspecified contact dermatitis type, unspecified trigger L25.9 [facility] [address] [place] [address] AVE [id number] [place] [id number] Apr, [facility] [address] [id number] [id number] Mar, [facility] [address] [facility] [id number][place] February, [facility] [address] [id number] [place] [id number] February, Diabetes type 2, controlled E11.9 ; Other obesity due to excess calories E66.09 ; Body mass index (BMI) of 30.0-30.9 in adult Z68.30 and History of shingles Z86.[address] [facility] [address] [id number] [place] [address] Jan, Uncontrolled type 2 diabetes mellitus without complication, without long-term current use of insulin E11.[address] [facility] [address] [id number] [place] [address] Nov, Hypomagnesemia E83.42 and Uncontrolled type 2 diabetes mellitus without complication, without long-term current use of insulin E11.[address] [facility] [address] [id number] [place] [address] Nov, Uncontrolled type 2 diabetes mellitus without complication, without long-term current use of insulin E11.65 ; Hypomagnesemia E83.42 and Hyperlipidemia LDL goal <[address] [facility] [address] [id number] [place] [address] Oct, [facility] [address] [facility] [id number], [place] [address] Sep, [facility] [address] [id number] [place] [address] Aug, [facility] [address] [id number] [place] [address] Aug, Hypomagnesemia E83.[address] [facility] [address] [id number] [place] [address] Aug, Uncontrolled type 2 diabetes mellitus without complication, without long-term current use of insulin E11.65 and Hypomagnesemia E83.[address] [facility] [address] [id number] [place] [address] Aug, [facility] [address] [id number] [place] [address] Jul, COPD exacerbation J44.[address] [facility] [address] [id number] [place] [address] Jul, Clostridium difficile diarrhea A04.[address] [facility] [address] [id number] [place] [address] Jun, [facility] [address] [id number] [place] [address] May, Clostridium difficile diarrhea A04.[address] [facility] [address] [id number] [place] [address] May, Clostridium difficile diarrhea A04.[address] [facility] [address] [id number] [place] [address] May, Hypomagnesemia E83.[address] [facility] [address] [id number] [place] [address] May, Uncontrolled type 2 diabetes mellitus without complication, without long-term current use of insulin E11.65 ; Clostridium difficile diarrhea A04.7 and Hypomagnesemia E83.[address] [facility] [address] [id number] [place] [address] May, [facility] [address] [id number] [place] [address] May, [facility] [address] [id number] [place] [address] Apr, Clostridium difficile diarrhea A04.7 and Hypomagnesemia E83.[address] [facility] [address] [id number] [place] [address] Apr, [facility] [address] [id number] [place] [address] Apr, High triglycerides E78.[address] [facility] [address] [id number] [place] [address] February, Recurrent pneumonia J18.[address] [facility] [address] [id number] [place] [address] February, Hypomagnesemia E83.[address] [facility] [address] [facility] [id number][place] [address] February, [facility] [address] [id number] [place] [address] February, COPD exacerbation J44.[address] [facility] [address] [id number] [place] [address] February, [facility] [address] [id number] [place] [address] Jan, Uncontrolled type 2 diabetes mellitus without complication, without long-term current use of insulin E11.65 and Arthritis, lumbar spine M47.[address] [facility] [address] [id number] [place] [address] Dec, [facility] [address] [id number] [place] [id number] Dec, [facility] [address] [id number] [place] [address] Oct, [facility] [address] [id number] [place] [address] Oct, Uncontrolled type 2 diabetes mellitus without complication, without long-term current use of insulin E11.[address] [facility] [address] [id number] [place] [address] Sep, Uncontrolled type 2 diabetes mellitus without complication, without long-term current use of insulin E11.[address] [facility] [address] [id number] [place] [address] Aug, [facility] [address] [id number] [place] [address] Aug, [facility] [address] [facility] [id number] [place] [address] Aug, [facility] [address] [id number] [place] [address] Jul, [facility] [address] [id number] [place] [address] Jul, Uncontrolled type 2 diabetes mellitus without complication, without long-term current use of insulin E11.65 ; Encounter for immunization Z23 and Leg cramps, sleep related G47.[address] [facility] [address] [id number] [place] [id number] May, [facility] [address] [id number] [place] [address] Apr, [facility] [address] [id number] [place] [address] Apr, Uncontrolled type 2 diabetes mellitus without complication, without long-term current use of insulin E11.65 and Hyperlipidemia LDL goal <70 E78.5 [facility] [address] [id number] [place] [address] Mar, [facility] [address] [id number] [place] [address] Mar, [facility] [address] [id number] [place] [address] Mar, Obstructive chronic bronchitis with exacerbation J44.1 [id number] [place] [address] February, [facility] [address] [place] [address] AVE [id number] [place] [id number] February, [facility] [id number] [place] [id number]30 February, [facility] [address] [place] [address] AVE [id number] [place] [id number] February, Controlled type 2 diabetes mellitus without complication, without long-term current use of insulin E11.9 [facility] [address], [place] [address] February, [facility] [address] [facility] [address] [id number] [place] [address]15[address] Jan, Pneumonia of both lungs due to infectious organism, unspecified part of lung J18.9 ; Pure hypercholesterolemia E78.0 and Hx of skilled nursing use 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 [facility] [address] [facility] [id number] [place] [id number] Jan, [facility] [address]65[address] [address] Jan, [facility] [address] [id number] [place] 638136646 Dec, Arthritis, lumbar spine M47.9 ; Essential hypertension with goal blood pressure less than 130\/80 I10 and Pneumonia of left lower lobe due to infectious organism J18.9 [facility] [address] [id number] [place] 36846[address] Dec, [facility] [address] [id number] [place] 15[address] Nov, Arthritis, lumbar spine M47.9 [facility] [address]65[address], [place] [address] Nov, [facility] [address]65[address], [place] [address] Oct, [facility] [address] [id number] [place] 74[address]235 Oct, High triglycerides E78.1 [facility] [address] [id number] [place] [address]47485929 Oct, Diabetes type 2, controlled E11.9 ; Arthritis, lumbar spine M47.9 and Encounter for Zostavax administration Z23 [facility] [address]65[address], [place] [address] Sep, [facility] [address]65[address], [place] [address]- 9[address] Aug, [facility] [address]65[address], [place] [address]65 Aug, [facility] [address] [id number] [place] [address]358[address] Jul, [facility] [address] [id number] [place] 473[address]354 Jul, Encounter for immunization Z23 [facility] [address]65100[place], [place] [address] Jun, [facility] [address] [id number] [place] 47[address]16515 Jun, [facility] [address] [id number] [place] 416583165 Jun, Diabetes 250.00 ; Interstitial pulmonary disease 515 and DJD ( degenerative joint disease), lumbosacral 722.52 [facility] [address] [id number] [place] [id number] Apr, [facility] [address] [facility] [id number] [id number] Apr, [facility] [address] [id number] [place] [id number] Mar, DJD (degenerative joint disease), lumbosacral 722.52 and Lumbago 724.2 [facility] [address] [id number] [place] [id number] February, Lumbago 724.2 and Abnormal x-ray of thoracic spine 793.7 [facility] [address] [address] [facility] [address] [id number] [place] 3167[address]157 February, Gout of knee 274.00 ; Lumbago with sciatica 724.3 and Interstitial pulmonary disease 515 [facility] [address] [facility] [address] [id number] [place] [id number] February, [facility] [address]65[address]12- [address] Jan, [facility] [address] [id number], [place] [address] Jan, [facility] [address], [place] [address]- [address]561 Dec, [facility] [address] [address]- [address] Dec, [facility] [address]65[address], [place] [address]- 5277 Dec, [facility] [address], [place] [address]- 2866 Dec, [facility] [address] [id number] [address]- [address]1 Nov, 2014 [facility] [place] [facility] [address] [id number] [place] [address]- [address]47 Nov, 2014 [facility] [place] [facility] [address] [id number] [place] [address]- 6946 Nov, 2014 [facility] [place] [facility] [address] [id number] [place] [address]- 5193 Nov, 2014 [facility] [place] [facility] [address] [id number] [place] [address]- 2990 Nov, 2014 [facility] [place] [facility] [address] [id number] [place] [address]- 8635 Nov, 2014 [facility] [place] [facility] [address] [facility] [id number] [place] [address]- 8936 Nov, 2014 [facility] [place] [facility] [address] [facility] [id number] [place] [address]- 6379 Nov, 2014 [facility] [place] [facility] [address] [facility] [id number] [place] [address]- 6091 Nov, [facility] [place] [facility] [address] [facility] [id number] [place] [address]- 5173 Nov, 2014 [facility] [place] [facility] [address] [facility] [id number], [place] [address]- 9294 Nov, [facility] [place] [facility] [address] [facility] [id number], [place] [address]- 9137 Nov, [facility] [place] [facility] [address] [facility] [id number] [place] [address]- 6560 Nov, [facility] [place] [facility] [address] [id number], [place] [address]- 8511 Oct, [facility] [place] [facility] [address] [facility] [id number], [place] [address]- 0621 Oct, [facility] [place] [facility] [address] [facility] [id number], [place] [address]- 5607 Oct, [facility] [place] [facility] [address] [id number] [place] [address]- 9887 Oct, [facility] [place] [facility] [address] [id number] [place] [address]- 3850 Oct, [facility] [place] [facility] [address] [id number] [place] [address]- 8224 Oct, [facility] [place] [facility] [address] [id number] [place] [address]- 7870 Oct, [facility] [place] [facility] [address] [id number] [place] [address]- 8734 Oct, [facility] [place] [facility] [address] [id number] [place] [address]- 6112 Sep, [facility] [place] [facility] [address] [facility] [id number] [place] [address]- 7396 Sep, [facility] [place] [facility] [address] [id number] [place] [address]- 9925 Aug, [facility] [place] [facility] [address] [id number] [place] [address]- 1104 Aug, [facility] [place] [facility] [address] [facility] [id number] [place] [address]- 2623 Aug, [facility] [place] [facility] [address] [id number], [place] [address]- 4[address] Aug, [facility] [place] [facility] [address] [id number], [place] [address]- 7027 Jul, [facility] [place] [facility] [address] [id number] [place] [address]- 8472 Jul, [facility] [place] [facility] [address] [id number] [place] [address]- 8791 Jun, [facility] [place] [facility] [address] [id number] [place] [address]- 0499 29 Jun, 2014 [facility] [place] [facility] [address] [id number] [place] [address]- 4251 16 Jun, 2013 [facility] [place] [facility] [address] [id number] [place] [address]- 7056 16 Jun, 2013 [facility] [place] [facility] [address] [id number] [place] [address]- 2546 11 Jun, 2013 [facility] [place] [facility] [address] [id number] [place] [address] 2546 11 Jun, 2013 [facility] [place] [facility] [address] [id number] [place] [address]- 0162 04 Jun, 2013 [facility] [place] [facility] [address] [id number] [place] [address]- 2975 04 Jun, 2013 [facility] [place] [facility] [address] [id number] [place] [address]- 4243 03 Jun, 2013 [facility] [place] [facility] [address] [id number] [place] [address]- 7846 Jun, 2013 [facility] [place] [facility] [address] [id number] [place] [address]- 3190 Jun, [facility] [place] [facility] [address] [id number] [place] [address]- 6369 May, [facility] [place] [facility] [address] [id number] [place] [address]- 0992 May, [facility] [place] [facility] [address] [id number] [place] [address]- 0429 Apr, [facility] [place] [facility] [address] [id number] [place] [address]- 5710 Apr, [facility] [place] [facility] [address] [id number] [place] [address]- 2954 Apr, [facility] [place] [facility] [address] [id number] [place] [address]- 7933 Apr, [facility] [place] [facility] [address] [id number] [place] [address]- 1822 Apr, [facility] [place] [facility] [address] [id number] [place] [address]- 9213 Apr, [facility] [place] [facility] [address] [id number] [place] [address]- 8364 Apr, [facility] [place] [facility] [address] [id number] [place] [address]- 5858 Apr, [facility] [place] [facility] [address] [id number] [place] [address]- 8273 Apr, [facility] [place] [facility] [address] [id number] [place] [address]- 2478 Apr, [facility] [place] [facility] [address] [id number] [place] [address]- 3840 Mar, [facility] [place] [facility] [address] [id number] [place] [address]- 5972 Mar, [facility] [place] [facility] [address] [id number] [place] [address]- 4281 Mar, [facility] [place] [facility] [address] [id number] [place] [address]- 4401 Mar, [facility] [place] [facility] [address] [id number] [place] [address]- 7095 Mar, [facility] [place] [facility] [address] [id number] [place] [address]- 1580 Mar, [facility] [place] [facility] [address] [id number] [place] [address]- 4049 Mar, [facility] [place] [facility] [address] [id number] [place] [address]- 7474 Mar, [facility] [place] [facility] [address] [id number] [place] [address]- 4151 Mar, [facility] [place] [facility] [address] [id number] [place] [address]- 5347 Mar, [facility] [place] [facility] [address] [id number] [place] [address]- 9268 11 Mar, 2014 [facility] [place] [facility] [address] [id number] [place] [address]- 7526 Mar, [facility] [place] [facility] [address] [id number] [place] [address]- 7968 Mar, [facility] [place] [facility] [address] [id number] [place] [address]- 9896 Mar, [facility] [place] [facility] [address] [id number] [place] [address]- 6751 Mar, [facility] [place] [facility] [address] [id number] [place] [address]- 6216 Mar, [facility] [place] [facility] [address] [id number] [place] [address]- 3590 February, [facility] [place] [facility] [address] [id number] [place] [address]- 8568 February, [facility] [place] [facility] [address] [id number] [place] [address]- 1916 Jan, [facility] [place] [facility] [address] [id number] [place] [address]- 1678 Jan, [facility] [place] [facility] [address] [id number] [place] [address]- 6726 Jan, [facility] [place] [facility] [address] [id number] [place] [address]- 9172 Jan, [facility] [place] [facility] [address] [id number] [place] [address]- 6702 Dec, [facility] [place] [facility] [address] [id number] [place] [address]- 5933 Dec, [facility] [place] [facility] [address] [id number] [place] [address]- 4492 Dec, [facility] [place] [facility] [address] [id number] [place] [address]- 0203 Dec, [facility] [place] [facility] [address] [id number] [place] [address]- 3636 Nov, [facility] [address] [id number] [place] [address]- 3446 Nov, [facility] [address] [id number] [place] [address]- 6425 Oct, [facility] [address] [id number] [place] [address]- 0663 Oct, [facility] [address] [id number] [place] [address]- 8049 Oct, [facility] [address] [id number] [place] [address] Oct, [facility] [address] [id number] [place] [address] Oct, [facility] [address] [id number] [place] [address] Oct, [facility] [address] [id number] [place] [address] Jun, [facility] [address] [id number] [place] [address] Jun, [facility] [address] [id number] [place] [address] Jun, [facility] [address] [id number] [id number] Jun, [facility] [address] [id number] [place] [address] Apr, [facility] [place] [facility] [address] [id number] [place] [address] Apr, [facility] [address] [id number] [place] [address] Apr, [facility] [address] [id number] [place] [address] Apr, [facility] [address] [id number] [place] [address] Mar, [facility] [address] [id number] [place] [address] Mar, [facility] [address] [id number] [place] [address] February, [facility] [address] [id number] [place] [address] Jan, [facility] [address] [id number] [place] [address] Jan, [facility] [address] [id number] [place] [address] Jan, [facility] [address] [id number] [place] [address] Dec, [facility] [place] [facility] [address] [id number] [place] [address] Dec, [facility] [address] [id number] [place] [address] Dec, [facility] [place] [facility] [address] [id number] [place] [address] Nov, [facility] [place] [facility] [address] [id number], [place] [address] Nov, [facility] [place] [facility] [address] [id number], [place] [address] Oct, [facility] [place] [facility] [address] [id number] [place] [address]- [address] Oct, [facility] [place] [facility] [address] [id number], [place] [address] Oct, [facility] [place] [facility] [address] [id number] [place] [address] Sep, [facility] [place] [facility] [address] [id number] [place] [address] Sep, [facility] [address] [id number] [place] [address] Sep, [facility] [place] [facility] [address] [id number] [place] [address] Sep, [facility] [address] [id number] [place] [address] Sep, [facility] [place] [facility] [address] [id number] [place] [address] Sep, [facility] [address] [id number] [place] [address] Sep, [facility] [place] [facility] [address] [id number] [place] [address] Sep, [facility] [place] [facility] [address] [facility] [id number] [place] [address] Aug, [facility] [place] [facility] [address] [facility] [id number] [place] [address] Aug, [facility] [place] [facility] [address] [facility] [id number] [place] [address] Jul, [facility] [place] [facility] [address] [facility] [id number], [place] [address] Jul, [facility] [place] [facility] [address] [facility] [id number], [place] [address] Jul, [facility] [place] [facility] [address] [facility] [id number], [place] [address]- [address] Jul, [facility] [place] [facility] [address] [facility] [id number], [place] [address] Jun, [facility] [place] [facility] [address] [facility] [id number], [place] [address] Jun, [facility] [address] [id number] [id number] Jun, [facility] [address] [id number] [place] [id number] Jun, 2011 [facility] [address] [id number] [place] [address] 11 Jun, 2012 [facility] [place] [facility] [address] [id number] [place] [address] 10 Jun, 2012 [facility] [address] [id number] [place] [address] 08 Jun, 2012 [facility] [place] [facility] [address] [id number] [place] [address] 05 Jun, 2012 [facility] [place] [facility] [address] [id number] [place] [address] May, [facility] [place] [facility] [address] [id number] [place] [address] May, [facility] [place] [facility] [address] [id number] [place] [address] May, [facility] [place] [facility] [address] [id number] [place] [address] May, [facility] [place] [facility] [address] [id number] [place] [address] May, [facility] [place] [facility] [address] [id number] [place] [address] May, [facility] [place] [facility] [address] [id number] [id number] May, [facility] [place] [facility] [address] [id number] [place] [address] Apr, [facility] [place] [facility] [address] [id number] [place] [id number] Apr, [facility] [place] [facility] [address] [id number] [place] [address] Apr, [facility] [place] [facility] [address] [id number] [place] [address] Apr, [facility] [place] [facility] [address] [id number] [place] [address] Apr, [facility] [place] [facility] [address] [id number] [place] [address] Apr, [facility] [place] [facility] [address] [id number] [place] [address] Apr, [facility] [place] [facility] [address] [id number] [place] [address]47 Apr, [facility] [address] [id number] [place] [address] Apr, [facility] [place] [facility] [address] [id number] [place] [address] Apr, [facility] [address] [id number] [place] [address] Mar, [facility] [address] [id number] [place] [address] February, [facility] [address] [id number] [place] [address] Jan, [facility] [address] [id number] [place] [address] Dec, [facility] [place] [facility] [address] [id number] [place] [address] Dec, [facility] [place] [facility] [address] [id number] [id number] Nov, [facility] [place] [facility] [address] [id number] [place] [address] Nov, [facility] [place] [facility] [address] [id number] [place] [address] Nov, [facility] [place] [facility] [address] [id number] [place] [address] Nov, [facility] [place] [facility] [address] [id number], [place] [address] Nov, [facility] [address] [facility] [id number], [place] [address] Nov, [facility] [id number], [place] [address] Nov, [facility] [address] [facility] [id number] [id number] Oct, [facility] [address] [facility] [id number], [place] [address] Oct, [facility] [address] [facility] [id number], [place] [address] Oct, [facility] [id number], [place] [address] Oct, [facility] [id number], [place] [address] Oct, [facility] [id number], [place] [address] Oct, [facility] [id number], [place] [address] Sep, [facility] [id number], [place] [address] Aug, [facility] [id number], [place] [address] Jul, [facility] [id number], [place] [address] Jul, [facility] [id number], [place] [address] Jul, [facility] [id number], [place] [address] Jul, [facility] [address] [id number], [place] [address] Jul, IMMUNIZATIONS Vaccine Route Administration Date Status FLULAVAL QUAD 0.5ML (6 MO & UP) 2017 IM Intramuscular Jul 29, 2018 Administered SOCIAL HISTORY Never Assessed REASON FOR VISIT flu shot. LIZET THAO PLAN OF CARE VITAL SIGNS MEDICATIONS Unknown Medications RESULTS No Results PROCEDURES Procedure Date Ordered Result Body Site FLULAVAL QUAD 0.5ML (6 MO AND UP) 2017Jul 29, 2018 FLULAVAL QUAD 0.5ML (6 MO & UP) 2017Jul 29, 2018 SINGLE IMMUNIZATION ADMIN Jul 29, 2018 INSTRUCTIONS MEDICATIONS ADMINISTERED No Known Medications MEDICAL [...]
--- OUTSIDE RECORDS SUMMARY | 2018-12-17 08:04 | XMS REPORT ---
Author Author MASON PANG Organization [facility] Address [address] [place] [address] Care Team Providers Care Varnish Cooker Name Role Phone MASON PANG Unavailable PROBLEMS Type Condition ICD9-CM Code AWA09-BN Code Onset Dates Condition Status SNOMED Code Problem Hypomagnesemia E83.42 Active 967822862 Problem Hyperlipidemia LDL goal <70 E78.5 Active 11635965 Problem Clostridium difficile diarrhea A04.7 Active 6269284513239 Problem Type 2 diabetes mellitus without complication, without long-term current use of insulin E11.9 Active 447904961 Problem Encounter for Zostavax administration Z23 Active 220520957 Problem Encounter for diabetic foot exam E11.9 Active 85188994 Problem Diabetes type 2, controlled E11.9 Active 92804423 Problem Arthritis, lumbar spine M47.9 Active 581788859 Problem Other obesity due to excess calories E66.09 Active 680115972 Problem Body mass index (BMI) of 30.0-30.9 in adult Z68.30 Active 682777235 Problem Contact dermatitis, unspecified contact dermatitis type, unspecified trigger L25.9 Active 40852663 Problem History of shingles Z86.19 Active 411714214187622 Problem Pure hypercholesterolemia E78.0 Active 422231443 Problem 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 Active 386541500 Problem High triglycerides E78.1 Active 340647406 Problem Essential hypertension with goal blood pressure less than 130\/80 I10 Active 22839952 Problem Uncontrolled type 2 diabetes mellitus without complication, without long-term current use of insulin E11.65 Active 914156127 Problem Leg cramps, sleep related G47.62 Active 21048269 Problem Controlled type 2 diabetes mellitus without complication, without long -term current use of insulin E11.9 Active 154725822 Problem COPD exacerbation J44.1 Active 250275477 Problem Hyperlipidemia LDL goal <70 E78.5 Active 81222227 Problem Recurrent pneumonia J18.9 Active 641159812 ALLERGIES No Information ENCOUNTERS Encounter Location Date Diagnosis [address] [id number] [place] [id number] Jun, Type 2 diabetes mellitus without complication, without long-term current use of insulin E11.9 [address] [facility] [address] [id number] [place] [address] May, Encounter for diabetic foot exam E11.9 [facility] [address] [id number] [place] [id number] May, [facility] [address] [id number] [place] [id number] May, [facility] [id number] [place] [address] May, Diabetes type 2, controlled E11.9 and Contact dermatitis, unspecified contact dermatitis type, unspecified trigger L25.9 [facility] [address] [id number] [place] [address] Apr, [facility] [address] [id number] [address] Mar, [facility] [address] [facility] [id number] [place] [address] February, [facility] [address] [id number] [place] [address] February, Diabetes type 2, controlled E11.9 ; Other obesity due to excess calories E66.09 ; Body mass index (BMI) of 30.0-30.9 in adult Z68.30 and History of shingles Z86.19 [facility] [id number] [place] [address] Jan, Uncontrolled type 2 diabetes mellitus without complication, without long-term current use of insulin E11.65 [facility] [address] [id number] [place] [address] Nov, Hypomagnesemia E83.42 and Uncontrolled type 2 diabetes mellitus without complication, without long-term current use of insulin E11.[address] [facility] [address] [address] [id number] [place] [address] Nov, Uncontrolled type 2 diabetes mellitus without complication, without long-term current use of insulin E11.65 ; Hypomagnesemia E83.42 and Hyperlipidemia LDL goal <70 [address] [facility] [address] [address] [id number] [place] [address] Oct, [facility] [address] [facility] [id number] [place] [address] Sep, [facility] [address] [address] [id number] [place] [address] Aug, [facility] [address] [address] [id number] [place] [address] Aug, Hypomagnesemia E83.[address] [facility] [address] [address] [id number] [place] [address] Aug, Uncontrolled type 2 diabetes mellitus without complication, without long-term current use of insulin E11.65 and Hypomagnesemia E83.[address] [facility] [address] [id number] [place] [address] Aug, [facility] [address] [address] [id number] [place] [address] Jul, COPD exacerbation J44.[address] [facility] [address] [address] [id number] [place] [address] Jul, Clostridium difficile diarrhea A04.[address] [facility] [address] [address] [id number] [place] [address] Jun, [facility] [address] [id number] [place] [address] May, Clostridium difficile diarrhea A04.[address] [facility] [address] [address] [id number] [place] [address] May, Clostridium difficile diarrhea A04.[address] [facility] [address] [address] [id number] [place] [address] May, Hypomagnesemia E83.[address] [facility] [address] [address] [id number] [place] [address] May, Uncontrolled type 2 diabetes mellitus without complication, without long-term current use of insulin E11.65 ; Clostridium difficile diarrhea A04.7 and Hypomagnesemia E83.[address] [facility] [address] [address] [id number] [place] [address] May, [facility] [address] [id number] [place] [address] May, [facility] [address] [id number] [place] [address] Apr, Clostridium difficile diarrhea A04.7 and Hypomagnesemia E83.[address] [facility] [address] [address] [id number] [place] [address] Apr, [facility] [address] [id number] [place] [address] Apr, High triglycerides E78.[address] [facility] [address] [address] [id number] [place] [address] February, Recurrent pneumonia J18.[address] [facility] [address] [address] [id number] [place] [address] February, Hypomagnesemia E83.42 [facility] [address] [place] [address] [id number] [place] February, [facility] [address] [id number] [place] [address] February, COPD exacerbation J44.[address] [facility] [address] [address] [id number] [place] [address] February, [facility] [address] [id number] [place] [address] Jan, Uncontrolled type 2 diabetes mellitus without complication, without long-term current use of insulin E11.65 and Arthritis, lumbar spine M47.[address] [facility] [address] [address] [id number] [place] [address] Dec, [facility] [address] [id number] [place] [id number] Dec, [facility] [address] [id number] [place] [address] Oct, [facility] [address] [id number] [place] [address] Oct, Uncontrolled type 2 diabetes mellitus without complication, without long-term current use of insulin E11.[address] [facility] [address] [address] [id number] [place] [address] Sep, Uncontrolled type 2 diabetes mellitus without complication, without long-term current use of insulin E11.[address] [facility] [address] [address] [id number] [place] [address] Aug, [facility] [address] [id number] [place] [address] Aug, [facility] [address] [facility] [id number] [place] [address] Aug, [facility] [address] [id number] [place] [id number] Jul, [facility] [address] [id number] [place] [address]46[address] Jul, Uncontrolled type 2 diabetes mellitus without complication, without long-term current use of insulin E11.65 ; Encounter for immunization Z23 and Leg cramps, sleep related G47.[address] [facility] [address] [address] [id number] [place] [id number] May, [facility] [address] [id number] [place] 150[address] Apr, [facility] [address] [id number] [place] [address]686616[address] Apr, Uncontrolled type 2 diabetes mellitus without complication, without long-term current use of insulin E11.65 and Hyperlipidemia LDL goal <70 E78.5 [facility] [address] [facility] [address] [id number] [place] [address] Mar, [facility] [address] [id number] [place] 5440[address] Mar, [facility] [address] [facility] [address] [id number] [place] [address] Mar, Obstructive chronic bronchitis with exacerbation J44.1 [facility] [address]00565100[place] [address] February, [facility] [address] [place] [address] AVE [id number] [place] 949486047 February, [facility] [address] [place] [address] February, [facility] [address] [place] [address] AVE [id number] [place] 522[address]341 February, Controlled type 2 diabetes mellitus without complication, without long-term current use of insulin E11.9 [facility] [address]00565100[place] [address] February, [facility] [address] [facility] [address] [id number] [place] [address] Jan, Pneumonia of both lungs due to infectious organism, unspecified part of lung J18.9 ; Pure hypercholesterolemia E78.0 and Hx of custodial use 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 [facility] [address] [facility] [address] [id number] [place] 6[address] Jan, [facility] [address] [id number] [address] Jan, [facility] [address] [place] [address] AVE [id number] [place] [address] Dec, Arthritis, lumbar spine M47.9 ; Essential hypertension with goal blood pressure less than 130\/80 I10 and Pneumonia of left lower lobe due to infectious organism J18.[address] [facility] [address] [address] [id number] [place] [address]2975[address] Dec, [facility] [address] [id number] [place] 613945448 Nov, Arthritis, lumbar spine M47.9 [facility] [address]65100[place] [address] Nov, [facility] [address]00565100[place] [address] Oct, [facility] [address] [id number] [place] 4184[address]330 Oct, High triglycerides E78.1 [facility] [address] [id number] [place] 12[address] Oct, Diabetes type 2, controlled E11.9 ; Arthritis, lumbar spine M47.9 and Encounter for Zostavax administration Z23 [facility] [address]00565100[place] [address] Sep, [facility] [address]65100[place] [address]28 Aug, [facility] [address]00565100[place] [address] Aug, [facility] [address] [facility] [address] [id number] [place] [id number] Jul, [facility] [address] [id number] [place] 336[address]75 Jul, Encounter for immunization Z23 [facility] [address] [id number] [address] Jun, [facility] [address] [id number] [place] [address] Jun, [facility] [address] [id number] [place] 441227382 Jun, Diabetes 250.00 ; Interstitial pulmonary disease 515 and DJD ( degenerative joint disease), lumbosacral 722.[address] [facility] [address] [address] [id number] [place] 355[address] Apr, [facility] [address] [facility] [id number] [address] Apr, [facility] [address] [id number] [place] 006754551 Mar, DJD (degenerative joint disease), lumbosacral 722.52 and Lumbago 724.2 [facility] [address] [facility] [address] [id number] [place] 075539876 February, Lumbago 724.2 and Abnormal x-ray of thoracic spine 793.7 [facility] [address] [facility] [address] [id number] [place] 670888175 February, Gout of knee 274.00 ; Lumbago with sciatica 724.3 and Interstitial pulmonary disease 515 [facility] [address] [facility] [address] [id number] [place] [address]68[address]10[address] February, [facility] [address]65100[place] [address] Jan, [facility] [address]65100[place] 18[place]- [address]70 Jan, [facility] [address]00565100[place] [address]- [address] Dec, [facility] [address]65100[place] 37[address]- [address] Dec, [facility] [address]65100[place]- 6840 Dec, [facility] [address]65100[place]- [address] Dec, [facility] [address]65100[place]- [address] Nov, [facility] [place] [facility] [address] [facility] [id number] [place] [address]- [address]598 Nov, 2014 [facility] [place] [facility] [address] [id number] [place] [address]- 6704 Nov, 2014 [facility] [place] [facility] [address] [id number] [place] [address]- 2546 Nov, 2014 [facility] [place] [facility] [address] [id number] [place] [address]- 4036 Nov, 2014 [facility] [place] [facility] [address] [id number] [place] [address]- 0165 Nov, 2014 [facility] [place] [facility] [address] [id number] [place] [address]- 6410 Nov, 2014 [facility] [place] [facility] [address] [facility] [id number] [place] [address]- 5490 Nov, 2014 [facility] [place] [facility] [address] [id number] [place] [address]- 2502 Nov, 2014 [facility] [place] [facility] [address] [id number] [place] [address]- 2130 Nov, 2014 [facility] [place] [facility] [address] [id number] [place] [address]- 8275 Nov, 2014 [facility] [place] [facility] [address] [id number] [place] [address]- 5256 Nov, [facility] [place] [facility] [address] [id number] [place] [address]- 9310 Nov, [facility] [place] [facility] [address] [id number] [place] [address]- 4368 Oct, [facility] [place] [facility] [address] [id number] [place] [address]- 5832 Oct, [facility] [place] [facility] [address] [id number] [place] [address]- 8006 Oct, [facility] [place] [facility] [address] [id number] [place] [address]- 6949 Oct, [facility] [place] [facility] [address] [id number] [place] [address]- 7596 Oct, [facility] [place] [facility] [address] [id number] [place] [address]- 9446 Oct, [facility] [place] [facility] [address] [id number] [place] [address]- 8774 Oct, [facility] [place] [facility] [address] [id number] [place] [address]- 1144 Oct, [facility] [place] [facility] [address] [id number] [place] [address]- 8794 Sep, [facility] [place] [facility] [address] [id number] [place] [address]- 4556 Sep, [facility] [place] [facility] [address] [id number] [place] [address]- 7361 Aug, [facility] [place] [facility] [address] [id number] [place] [address]- 3037 Aug, [facility] [place] [facility] [address] [id number] [place] [address]- 0557 Aug, [facility] [place] [facility] [address] [facility] [id number] [place] [address]- 9682 Aug, [facility] [place] [facility] [address] [id number] [place] [address]- 3427 Jul, [facility] [place] [facility] [address] [id number] [place] [address]- 5143 Jul, [facility] [place] [facility] [address] [id number] [place] [address]- 2830 29 Jun, 2014 [facility] [place] [facility] [address] [id number] [place] [address]- 3680 29 Jun, 2014 [facility] [place] [facility] [address] [id number] [place] [address]- 2281 16 Jun, 2014 [facility] [place] [facility] [address] [id number] [place] [address]- 7859 16 Jun, 2013 [facility] [place] [facility] [address] [id number] [place] [address]- 6266 11 Jun, 2013 [facility] [place] [facility] [address] [id number] [place] [address]- 4176 11 Jun, 2013 [facility] [place] [facility] [address] [id number] [place] [address]- 3387 04 Jun, 2013 [facility] [place] [facility] [address] [id number] [place] [address]- 6074 04 Jun, 2013 [facility] [place] [facility] [address] [id number] [place] [address]- 8253 03 Jun, 2013 [facility] [place] [facility] [address] [id number] [place] [address]- 9294 Jun, 2013 [facility] [place] [facility] [address] [id number] [place] [address]- 3857 Jun, 2013 [facility] [place] [facility] [address] [id number] [place] [address]- 0554 May, [facility] [place] [facility] [address] [id number] [place] [address]- 8363 May, [facility] [place] [facility] [address] [id number] [place] [address]- 4529 Apr, [facility] [place] [facility] [address] [id number] [place] [address]- 8624 Apr, [facility] [place] [facility] [address] [id number] [place] [address]- 4506 Apr, [facility] [place] [facility] [address] [id number] [place] [address]- 1573 Apr, [facility] [place] [facility] [address] [id number] [place] [address]- 1368 Apr, [facility] [place] [facility] [address] [id number] [place] [address]- 1079 Apr, [facility] [place] [facility] [address] [id number] [place] [address]- 8478 Apr, [facility] [place] [facility] [address] [id number] [place] [address]- 3755 Apr, [facility] [place] [facility] [address] [id number] [place] [address]- 4030 Apr, [facility] [place] [facility] [address] [id number] [place] [address]- 6188 Apr, [facility] [place] [facility] [address] [id number] [place] [address]- 4446 Mar, [facility] [place] [facility] [address] [id number] [place] [address]- 6530 Mar, [facility] [place] [facility] [address] [id number] [place] [address]- 5222 Mar, [facility] [place] [facility] [address] [id number] [place] [address]- 1814 Mar, [facility] [place] [facility] [address] [id number] [place] [address]- 9583 Mar, [facility] [place] [facility] [address] [id number] [place] [address]- 5029 Mar, [facility] [place] [facility] [address] [id number] [place] [address]- 0910 Mar, [facility] [place] [facility] [address] [id number] [place] [address]- 9568 Mar, [facility] [place] [facility] [address] [id number] [place] [address]- 2172 Mar, [facility] [place] [facility] [address] [id number] [place] [address]- 4126 Mar, [facility] [place] [facility] [address] [id number] [place] [address]- 5601 Mar, [facility] [place] [facility] [address] [id number] [place] [address]- 4687 Mar, [facility] [place] [facility] [address] [id number] [place] [address]- 3782 Mar, [facility] [place] [facility] [address] [id number] [place] [address]- 1376 Mar, [facility] [place] [facility] [address] [id number] [place] [address]- 4058 Mar, [facility] [place] [facility] [address] [id number] [place] [address]- 0609 Mar, [facility] [place] [facility] [address] [id number] [place] [address]- 3860 February, [facility] [place] [facility] [address] [id number] [place] [address]- 8533 February, [facility] [place] [facility] [address] [id number] [place] [address]- 0292 Jan, [facility] [place] [facility] [address] [id number] [place] [address]- 6427 Jan, [facility] [place] [facility] [address] [id number] [place] [address]- 9092 Jan, [facility] [place] [facility] [address] [id number] [place] [address]- 2274 Jan, [facility] [place] [facility] [address] [id number] [place] [address]- 9047 Dec, [facility] [place] [facility] [address] [id number] [place] [address]- 2045 Dec, [facility] [place] [facility] [address] [id number] [place] [address]- 1840 Dec, [facility] [place] [facility] [address] [id number] [place] [address]- 8423 Dec, [facility] [place] [facility] [address] [id number] [place] [address]- 8304 Nov, [facility] [address] [id number] [place] [address]- 9981 Nov, [facility] [place] [facility] [address] [id number] [place] [address]- 2403 Oct, [facility] [place] [facility] [address] [id number] [place] [address]- 7426 Oct, [facility] [place] [facility] [address] [id number] [place] [address] Oct, [facility] [address] [id number] [place] [address] Oct, [facility] [place] [facility] [address] [id number] [place] [address] Oct, [facility] [place] [facility] [address] [id number] [place] [address] Oct, [facility] [address] [id number] [place] [address] Jun, [facility] [place] [facility] [address] [id number] [place] [address] Jun, [facility] [place] [facility] [address] [id number] [address] Jun, [facility] [address] [id number] [id number] Jun, [facility] [place] [facility] [address] [id number] [place] [address] Apr, [facility] [place] [facility] [address] [id number] [place] [address] Apr, [facility] [place] [facility] [address] [id number] [place] [address] Apr, [facility] [place] [facility] [address] [id number] [place] [address] Apr, [facility] [place] [facility] [address] [id number] [place] [address] Mar, [facility] [address] [id number] [place] [address] Mar, [facility] [address] [id number] [place] [address] February, [facility] [address] [id number] [place] [address] Jan, [facility] [place] [facility] [address] [id number] [place] [address] Jan, [facility] [address] [id number] [place] [address] Jan, [facility] [address] [id number] [place] [address] Dec, [facility] [address] [id number] [place] [address] Dec, [facility] [place] [facility] [address] [id number] [place] [address] Dec, [facility] [address] [id number] [place] [address] Nov, [facility] [address] [id number] [place] [address] Nov, [facility] [address] [id number] [place] [address] Oct, [facility] [place] [facility] [address] [id number] [place] [address] Oct, [facility] [place] [facility] [address] [id number] [place] [address] Oct, [facility] [place] [facility] [address] [id number] [place] [address] Sep, [facility] [place] [facility] [address] [id number] [place] [address] Sep, [facility] [place] [facility] [address] [id number] [place] [address] Sep, [facility] [place] [facility] [address] [id number] [place] [address] Sep, [facility] [place] [facility] [address] [id number] [place] [address] Sep, [facility] [place] [facility] [address] [id number] [place] [address] Sep, [facility] [place] [facility] [address] [id number] [place] [address] Sep, [facility] [place] [facility] [address] [id number] [place] [address] Sep, [facility] [place] [facility] [address] [facility] [id number] [place] [address] Aug, [facility] [place] [facility] [address] [id number] [place] [address] Aug, [facility] [place] [facility] [address] [id number] [place] [address] Jul, [facility] [place] [facility] [address] [facility] [id number] [place] [address] Jul, [facility] [place] [facility] [address] [facility] [id number] [address] Jul, [facility] [place] [facility] [address] [id number] [place] [address] Jul, [facility] [place] [facility] [address] [id number] [place] [address] Jun, [facility] [place] [facility] [address] [id number] [place] [address] Jun, [facility] [address] [id number] [id number] Jun, [facility] [address] [id number] [id number] Jun, [facility] [place] [facility] [address] [id number] [place] [address] 11 Jun, 2012 [facility] [place] [facility] [address] [id number] [place] [address] 10 Jun, 2012 [facility] [place] [facility] [address] [id number] [place] [address] 08 Jun, 2012 [facility] [place] [facility] [address] [id number] [place] [address]- [address] 05 Jun, 2012 [facility] [place] [facility] [address] [id number] [place] [address] 31 May, 2012 [facility] [place] [facility] [address] [id number] [place] [address] May, [facility] [place] [facility] [address] [id number] [place] [address] May, [facility] [place] [facility] [address] [id number] [place] [address] May, [facility] [place] [facility] [address] [id number] [place] [address] May, [facility] [place] [facility] [address] [id number] [place] [address] May, [facility] [place] [facility] [address] [facility] [id number] [place] [id number] May, [facility] [place] [facility] [address] [id number] [place] [address] Apr, [facility] [place] [facility] [address] [id number] [place] [id number] Apr, [facility] [place] [facility] [address] [id number] [place] [address] Apr, [facility] [place] [facility] [address] [id number] [place] [address] Apr, [facility] [place] [facility] [address] [id number] [place] [address] Apr, [facility] [place] [facility] [address] [id number] [place] [address] Apr, [facility] [place] [facility] [address] [id number] [place] [address] Apr, [facility] [place] [facility] [address] [id number] [place] [address] Apr, [facility] [place] [facility] [address] [id number] [place] [address] Apr, [facility] [place] [facility] [address] [id number] [place] [address] Apr, [facility] [place] [facility] [address] [id number] [place] [address] Mar, [facility] [place] [facility] [address] [id number] [place] [address] February, [facility] [place] [facility] [address] [id number] [place] [address] Jan, [facility] [place] [facility] [address] [id number] [place] [address] Dec, [facility] [place] [facility] [address] [id number] [place] [address] Dec, [facility] [place] [facility] [address] [facility] [id number] [place] [id number] Nov, [facility] [place] [facility] [address] [id number] [address] Nov, [facility] [place] [facility] [address] [id number] [place] [address] Nov, [facility] [place] [facility] [address] [id number] [place] [address] Nov, [facility] [place] [facility] [address] [id number] [place] [address] Nov, [facility] [place] [facility] [address] [id number] [address] Nov, [facility] [address] [id number] [address] Nov, [facility] [address] [facility] [id number] [id number] Oct, [facility] [id number] [address] Oct, [facility] [id number] [address] Oct, [facility] [id number] [address] Oct, [facility] [id number] [address] Oct, [facility] [id number] [address] Oct, [facility] [id number] [address] Sep, [facility] [id number] [address] Aug, [facility] [id number] [address] Jul, [facility] [address] [id number] [address] Jul, [facility] [address] [id number] [address] Jul, [facility] [id number] [address] Jul, [facility] [id number] [address] Jul, IMMUNIZATIONS No Known Immunizations SOCIAL HISTORY Never Assessed REASON FOR VISIT Requests return call PLAN OF CARE VITAL SIGNS MEDICATIONS Medication Instructions Dosage Frequency Start Date End Date Duration Status Diabetic Shoes as directed Jun, Active RESULTS No Results PROCEDURES No Known [...]
--- OUTSIDE RECORDS SUMMARY | 2018-12-17 08:05 | XMS REPORT ---
Author Author MASON PANG Organization [facility] Address [address] [place] [address] Care Team Providers Care Transit Mix Operator Name Role Phone MASON PANG Unavailable PROBLEMS Type Condition ICD9-CM Code CGP77-XH Code Onset Dates Condition Status SNOMED Code Problem Hypomagnesemia E83.42 Active 912683933 Problem Hyperlipidemia LDL goal <70 E78.5 Active 20829668 Problem Clostridium difficile diarrhea A04.7 Active [id number] Problem Type 2 diabetes mellitus without complication, without long-term current use of insulin E11.9 Active 905891169 Problem Encounter for Zostavax administration Z23 Active 760772931 Problem Encounter for diabetic foot exam E11.9 Active 66259058 Problem Diabetes type 2, controlled E11.9 Active 72923971 Problem Arthritis, lumbar spine M47.9 Active 611627204 Problem Other obesity due to excess calories E66.09 Active 344505601 Problem Body mass index (BMI) of 30.0-30.9 in adult Z68.30 Active 154028412 Problem Contact dermatitis, unspecified contact dermatitis type, unspecified trigger L25.9 Active 00712574 Problem History of shingles Z86.19 Active [id number] Problem Pure hypercholesterolemia E78.0 Active 206670340 Problem 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 Active 267096464 Problem High triglycerides E78.1 Active 980184947 Problem Essential hypertension with goal blood pressure less than 130\/80 I10 Active 08733804 Problem Uncontrolled type 2 diabetes mellitus without complication, without long-term current use of insulin E11.65 Active 256880720 Problem Leg cramps, sleep related G47.62 Active 52305313 Problem Controlled type 2 diabetes mellitus without complication, without long -term current use of insulin E11.9 Active 774206332 Problem COPD exacerbation J44.1 Active 573986783 Problem Hyperlipidemia LDL goal <70 E78.5 Active 80203319 Problem Recurrent pneumonia J18.9 Active 206483227 ALLERGIES Substance Reaction Event Type Date Status Lipitor muscle aches Drug Allergy May, Active ENCOUNTERS Encounter Location Date Diagnosis [address] [id number][place] [id number] Jun, Type 2 diabetes mellitus without complication, without long-term current use of insulin E11.[address] [id number], [place] 412147242 May, Encounter for diabetic foot exam E11.9 [facility] [address] [id number], [place] [address] May, [address] [facility] [address] [id number], [place] [address] May, [facility] [address] [id number][place] [address]9999[address] May, Diabetes type 2, controlled E11.9 and Contact dermatitis, unspecified contact dermatitis type, unspecified trigger L25.9 [facility] [address] [place] [address] AV [id number], [place] [address]37[address] Apr, [facility] [id number][place] [address] Mar, [facility] [address] [address] February, [facility] [address] [id number], [place] [address] February, Diabetes type 2, controlled E11.9 ; Other obesity due to excess calories E66.09 ; Body mass index (BMI) of 30.0-30.9 in adult Z68.30 and History of shingles Z86.19 [facility] [address] [id number][place] [address] Jan, Uncontrolled type 2 diabetes mellitus without complication, without long-term current use of insulin E11.65 [facility] [id number], [place] [address] Nov, Hypomagnesemia E83.42 and Uncontrolled type 2 diabetes mellitus without complication, without long-term current use of insulin E11.[address] [facility] [address] [id number][place] [address] Nov, Uncontrolled type 2 diabetes mellitus without complication, without long-term current use of insulin E11.65 ; Hypomagnesemia E83.42 and Hyperlipidemia LDL goal <70 [address] [facility] [address] [id number], [place] [address] Oct, [facility] [address] [facility] [id number] [address] Sep, [facility] [address] [id number], [place] [address] Aug, [facility] [address] [id number], [place] 585384549 Aug, Hypomagnesemia E83.[address] [facility] [address] [id number], [place] 795269194 Aug, Uncontrolled type 2 diabetes mellitus without complication, without long-term current use of insulin E11.65 and Hypomagnesemia E83.[address] [facility] [address] [id number], [place] 8038[address]363 Aug, [facility] [address] [id number], [place] 751229245 Jul, COPD exacerbation J44.[address] [facility] [address] [id number], [place] 267247156 Jul, Clostridium difficile diarrhea A04.[address] [facility] [address] [id number], [place] 6804532[address] Jun, [facility] [address] [id number], [place] [address]99735[address] May, Clostridium difficile diarrhea A04.[address] [facility] [address] [id number], [place] 011741479 May, Clostridium difficile diarrhea A04.[address] [facility] [address] [id number], [place] 739054200 May, Hypomagnesemia E83.[address] [facility] [address] [id number], [place] 489489024 May, Uncontrolled type 2 diabetes mellitus without complication, without long-term current use of insulin E11.65 ; Clostridium difficile diarrhea A04.7 and Hypomagnesemia E83.[address] [facility] [address] [id number], [place] 620010584 May, [facility] [address] [id number], [place] [address] May, [facility] [address] [id number], [place] 798089583 Apr, Clostridium difficile diarrhea A04.7 and Hypomagnesemia E83.[address] [facility] [address] [id number], [place] 7983[address] Apr, [facility] [address] [id number], [place] 358[address]236 Apr, High triglycerides E78.[address] [facility] [address] [id number], [place] 760814916 February, Recurrent pneumonia J18.[address] [facility] [address] [id number], [place] [id number] February, Hypomagnesemia E83.42 [facility] [address] [facility] [id number] [address] February, [facility] [address] [id number], [place] 455718763 February, COPD exacerbation J44.[address] [facility] [address] [id number], [place] 053051826 February, [facility] [address] [id number], [place] 160241690 Jan, Uncontrolled type 2 diabetes mellitus without complication, without long-term current use of insulin E11.65 and Arthritis, lumbar spine M47.[address] [facility] [address] [id number] [place] [address] Dec, [facility] [address] [id number] [place] [address] Dec, [facility] [address] [id number], [place] 133310476 Oct, [facility] [address] [id number], [place] 980884760 Oct, Uncontrolled type 2 diabetes mellitus without complication, without long-term current use of insulin E11.[address] [facility] [address] [id number], [place] 989834239 Sep, Uncontrolled type 2 diabetes mellitus without complication, without long-term current use of insulin E11.[address] [facility] [address] [id number], [place] 521855859 Aug, [facility] [address] [id number], [place] 282219451 Aug, [facility] [address] [facility] [id number] [address] Aug, [facility] [address] [id number], [place] 789273995 Jul, [facility] [address] [id number], [place] 515166975 Jul, Uncontrolled type 2 diabetes mellitus without complication, without long-term current use of insulin E11.65 ; Encounter for immunization Z23 and Leg cramps, sleep related G47.[address] [facility] [address] [id number], [place] 620082493 May, [facility] [address] [id number], [place] 401067715 Apr, [facility] [address] [id number], [place] 136344384 Apr, Uncontrolled type 2 diabetes mellitus without complication, without long-term current use of insulin E11.65 and Hyperlipidemia LDL goal <70 E78.5 [facility] [address] [id number], [place] 642590593 Mar, [facility] [address] [id number], [place] 664749799 Mar, [facility] [address] [id number], [place] 048959715 Mar, Obstructive chronic bronchitis with exacerbation J44.1 [facility] [address] [address] February, [facility] [place] [address] AVE [id number], [place] 032091021 February, [facility] [id number] [place] [address] February, [facility] [address] [place] [address] AVE [id number], [place] 557730445 February, Controlled type 2 diabetes mellitus without complication, without long-term current use of insulin E11.9 [facility] [address]65100[place] 45445955- 3942 February, [facility] [address] [place] [address] AVE [id number], [place] 571860028 Jan, Pneumonia of both lungs due to infectious organism, unspecified part of lung J18.9 ; Pure hypercholesterolemia E78.0 and Hx of mcc use 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 [facility] [address] [facility] [address] [id number], [place] 879115876 Jan, [facility] [address]65100[place] 36319701- [address] Jan, [facility] [address] [id number], [place] 771811383 Dec, Arthritis, lumbar spine M47.9 ; Essential hypertension with goal blood pressure less than 130\/80 I10 and Pneumonia of left lower lobe due to infectious organism J18.9 [facility] [address] [id number], [place] 705967588 Dec, [facility] [address] [id number], [place] [id number] 18 Nov, 2015 Arthritis, lumbar spine M47.9 [facility] [address]65100[place] Nov, [facility] [address]65100[place] [address]- [address] Oct, [facility] [address] [id number], [place] 169630392 Oct, High triglycerides E78.1 [facility] [address] [id number], [place] 974116282 Oct, Diabetes type 2, controlled E11.9 ; Arthritis, lumbar spine M47.9 and Encounter for Zostavax administration Z23 [facility] [address] [address] Sep, [facility] [address] [id number] [address]- 1187 Aug, [facility] [address] [id number] [address]- [address] Aug, [facility] [address] [id number], [place] 790576389 Jul, [facility] [address] [id number], [place] 616763623 Jul, Encounter for immunization Z23 [facility] [address]65100[place] [address] Jun, [facility] [address] [id number], [place] 581674339 Jun, [facility] [address] [id number], [place] 920022178 Jun, Diabetes 250.00 ; Interstitial pulmonary disease 515 and DJD ( degenerative joint disease), lumbosacral 722.52 [facility] [address] [id number], [place] [id number] Apr, [facility] [place] [address] [facility] [id number] [place] 458804367 Apr, [facility] [address] [id number], [place] 339762139 Mar, DJD (degenerative joint disease), lumbosacral 722.52 and Lumbago 724.2 [facility] [address] [id number], [place] 779917584 February, Lumbago 724.2 and Abnormal x-ray of thoracic spine 793.7 [facility] [address] [facility] [address] [id number], [place] 796296775 February, Gout of knee 274.00 ; Lumbago with sciatica 724.3 and Interstitial pulmonary disease 515 [facility] [address] [facility] [address] [id number], [place] 029137639 February, [facility] [address] 23700291- 4[address] Jan, [facility] [address]65100[place] 33107164- 8604 Jan, [facility] [address]65100[place] 64663070- 9800 Dec, [facility] [address]65100[place] [address]- 8704 Dec, [facility] [id number] [place] [address]25- 5974 Dec, [facility] [address]65100[place] 1992[place]- 3[address] Dec, [facility] [id number] [place] [address]- 3978 Nov, 2014 [facility] [place] [facility] [address] [id number] [place] [address]- [address]37 Nov, 2014 [facility] [place] [facility] [address] [facility] [id number] [place] [address]- 7616 Nov, 2014 [facility] [place] [facility] [address] [facility] [id number] [place] [address]- 6766 Nov, 2014 [facility] [place] [facility] [address] [facility] [id number] [place] [address]- 1979 Nov, 2014 [facility] [place] [facility] [address] [id number] [place] [address]- 1866 Nov, 2014 [facility] [place] [facility] [address] [facility] [id number] [place] [address]- 3682 Nov, 2014 [facility] [place] [facility] [address] [facility] [id number] [place] [address]- 0164 Nov, 2014 [facility] [place] [facility] [address] [facility] [id number] [place] [address]- 0606 Nov, 2014 [facility] [place] [facility] [address] [facility] [id number] [place] [address]- 8531 Nov, 2014 [facility] [place] [facility] [address] [facility] [id number] [place] [address]- 3504 Nov, 2014 [facility] [place] [facility] [address] [facility] [id number] [place] [address]- 1816 Nov, [facility] [place] [facility] [address] [facility] [id number] [place] [address]- 1210 Nov, [facility] [place] [facility] [address] [facility] [id number] [place] [address]- 2801 Oct, [facility] [place] [facility] [address] [facility] [id number] [place] [address]- 0928 Oct, [facility] [place] [facility] [address] [facility] [id number] [place] [address]- 1293 Oct, [facility] [place] [facility] [address] [id number] [place] [address]- 7144 Oct, [facility] [place] [facility] [address] [id number] [place] [address]- 5991 Oct, [facility] [place] [facility] [address] [id number] [place] [address]- 2670 Oct, [facility] [place] [facility] [address] [id number] [place] [address]- 7366 Oct, [facility] [place] [facility] [address] [id number] [place] [address]- 8616 Oct, [facility] [place] [facility] [address] [id number] [place] [address]- 5021 Sep, [facility] [place] [facility] [address] [id number] [place] [address]- 9526 Sep, [facility] [place] [facility] [address] [id number] [place] [address]- 0795 Aug, [facility] [place] [facility] [address] [id number] [place] [address]- 2257 Aug, [facility] [place] [facility] [address] [id number] [place] [address]- 2657 Aug, [facility] [place] [facility] [address] [id number] [place] [address]- 1613 Aug, [facility] [place] [facility] [address] [id number] [address]- 5094 Jul, [facility] [place] [facility] [address] [id number] [place] [address]- 3457 Jul, [facility] [place] [facility] [address] [id number] [place] [address]- 9258 Jun, [facility] [place] [facility] [address] [id number] [place] [address]- 7868 29 Jun, 2014 [facility] [place] [facility] [address] [id number] [address]- 4218 16 Jun, 2013 [facility] [place] [facility] [address] [id number] [place] [address]- 9437 16 Jun, 2013 [facility] [place] [facility] [address] [id number] [place] [address]- 3366 11 Jun, 2013 [facility] [place] [facility] [address] [id number] [place] [address]- 3246 11 Jun, 2013 [facility] [place] [facility] [address] [id number] [place] [address]- 8238 04 Jun, 2013 [facility] [place] [facility] [address] [id number] [place] [address]- 7900 04 Jun, 2013 [facility] [place] [facility] [address] [id number] [place] [address]- 7837 Jun, 2013 [facility] [place] [facility] [address] [id number] [place] [address]- 9221 Jun, 2013 [facility] [place] [facility] [address] [id number] [place] [address]- 9731 Jun, 2013 [facility] [place] [facility] [address] [id number] [place] [address]- 6281 May, [facility] [place] [facility] [address] [id number] [place] [address]- 9446 May, [facility] [place] [facility] [address] [id number] [place] [address]- 6222 Apr, [facility] [place] [facility] [address] [id number] [place] [address]- 0489 Apr, [facility] [place] [facility] [address] [id number] [place] [address]- 0116 Apr, [facility] [place] [facility] [address] [id number] [place] [address]- 4549 Apr, [facility] [place] [facility] [address] [id number] [place] [address]- 1302 Apr, [facility] [place] [facility] [address] [id number] [place] [address]- 8237 14 Apr, 2013 [facility] [place] [facility] [address] [id number] [place] [address]- 4359 Apr, [facility] [place] [facility] [address] [id number] [place] [address]- 2561 Apr, [facility] [place] [facility] [address] [id number] [place] [address]- 4450 Apr, [facility] [place] [facility] [address] [id number] [place] [address]- 2596 Apr, [facility] [place] [facility] [address] [id number] [place] [address]- 4356 Mar, [facility] [place] [facility] [address] [id number] [place] [address]- 0427 Mar, [facility] [place] [facility] [address] [id number] [place] [address]- 5571 Mar, [facility] [place] [facility] [address] [id number] [place] [address]- 4483 Mar, [facility] [place] [facility] [address] [id number] [place] [address]- 0575 Mar, [facility] [place] [facility] [address] [id number] [place] [address]- 5551 Mar, [facility] [place] [facility] [address] [id number] [place] [address]- 2263 Mar, [facility] [place] [facility] [address] [id number] [place] [address]- 2142 Mar, [facility] [place] [facility] [address] [id number] [place] [address]- 8299 Mar, [facility] [place] [facility] [address] [id number] [place] [address]- 3205 Mar, [facility] [place] [facility] [address] [id number] [place] [address]- 5462 Mar, [facility] [place] [facility] [address] [id number] [place] [address]- 1219 Mar, [facility] [place] [facility] [address] [id number] [place] [address]- 4575 Mar, [facility] [place] [facility] [address] [id number] [place] [address]- 5474 Mar, [facility] [place] [facility] [address] [id number] [place] [address]- 4629 Mar, [facility] [place] [facility] [address] [id number] [place] [address]- 8771 Mar, [facility] [place] [facility] [address] [id number] [place] [address]- 5939 February, [facility] [place] [facility] [address] [id number] [place] [address]- 9006 February, [facility] [place] [facility] [address] [id number] [place] [address]- 9989 Jan, [facility] [place] [facility] [address] [id number] [place] [address]- 6442 Jan, [facility] [place] [facility] [address] [id number] [place] [address]- 6960 Jan, [facility] [place] [facility] [address] [id number] [place] [address]- 2878 Jan, [facility] [place] [facility] [address] [id number] [place] [address]- 5947 Dec, [facility] [place] [facility] [address] [id number] [place] [address]- 0018 Dec, [facility] [place] [facility] [address] [id number] [place] [address]- 9[address] Dec, [facility] [place] [facility] [address] [id number] [place] [address] Dec, [facility] [place] [facility] [address] [id number] [place] [address] Nov, [facility] [address] [id number] [place] [address] Nov, [facility] [place] [facility] [address] [id number] [place] [address] Oct, [facility] [place] [facility] [address] [id number] [place] [address] Oct, [facility] [place] [facility] [address] [id number] [place] [address] Oct, [facility] [place] [facility] [address] [id number] [place] [address] Oct, [facility] [place] [facility] [address] [id number] [place] [address] Oct, [facility] [address] [id number] [place] [address] Oct, [facility] [address] [id number] [place] [address]- [address] Jun, [facility] [place] [facility] [address] [id number] [place] [address] Jun, [facility] [address] [facility] [id number] [address] Jun, [facility] [address] [facility] [id number] [id number] Jun, [facility] [place] [facility] [address] [id number] [place] [address] Apr, [facility] [place] [facility] [address] [id number] [place] [address]- [address] Apr, [facility] [place] [facility] [address] [id number] [place] [address] Apr, [facility] [place] [facility] [address] [id number] [place] [address] Apr, [facility] [place] [facility] [address] [id number] [place] [address] Mar, [facility] [address] [id number] [place] [address]- [address] Mar, [facility] [place] [facility] [address] [id number] [place] [address] February, [facility] [address] [id number] [place] [address] Jan, [facility] [place] [facility] [address] [id number] [place] [address] Jan, [facility] [address] [id number] [place] [address] Jan, [facility] [address] [id number] [place] [address] Dec[facility] [place] [facility] [address] [id number] [place] [address] Dec, [facility] [address] [id number] [place] [address] Dec, [facility] [address] [id number] [place] [address] Nov, [facility] [address] [id number] [place] [address] Nov, [facility] [address] [id number] [place] [address] Oct, [facility] [place] [facility] [address] [id number] [place] [address] Oct, [facility] [place] [facility] [address] [id number] [place] [address]- [address] Oct, [facility] [place] [facility] [address] [id number] [place] [address] Sep, [facility] [place] [facility] [address] [id number] [place] [address] Sep, [facility] [place] [facility] [address] [id number] [address] Sep, [facility] [place] [facility] [address] [facility] [id number] [address] Sep, [facility] [place] [facility] [address] [facility] [id number] [address] Sep, [facility] [place] [facility] [address] [facility] [id number] [address] Sep, [facility] [place] [facility] [address] [facility] [id number] [place] [address] Sep, [facility] [place] [facility] [address] [facility] [id number] [address] Sep, [facility] [place] [facility] [address] [facility] [id number] [address] Aug, [facility] [place] [facility] [address] [facility] [id number] [address] Aug, [facility] [place] [facility] [address] [facility] [id number] [address] Jul, [facility] [place] [facility] [address] [facility] [id number] [address] Jul, [facility] [place] [facility] [address] [facility] [id number] [address] Jul, [facility] [place] [facility] [address] [facility] [id number] [address] Jul, [facility] [place] [facility] [address] [facility] [id number] [address] Jun, [facility] [place] [facility] [address] [facility] [id number] [address] Jun, [facility] [address] [id number][place] [id number] Jun, [facility] [address] [facility] [id number][place] [id number] 13 Jun, 2012 [facility] [place] [facility] [address] [id number] [place] [address] 11 Jun, 2012 [facility] [place] [facility] [address] [id number] [address] 10 Jun, 2012 [facility] [place] [facility] [address] [id number] [address] 08 Jun, 2012 [facility] [place] [facility] [address] [id number] [address] 05 Jun, 2012 [facility] [place] [facility] [address] [id number] [place] [address] May, [facility] [place] [facility] [address] [id number] [address] May, [facility] [place] [facility] [address] [id number] [address] May, [facility] [place] [facility] [address] [id number] [address] 1498 May, [facility] [place] [facility] [address] [id number] [address] May, [facility] [place] [facility] [address] [id number] [address] May, [facility] [place] [facility] [address] [id number] [id number] May, [facility] [place] [facility] [address] [id number] [address] Apr, [facility] [place] [facility] [address] [id number] [id number] Apr, [facility] [place] [facility] [address] [id number] [address] Apr, [facility] [place] [facility] [address] [id number] [address] Apr, [facility] [place] [facility] [address] [id number] [place] [address] Apr, [facility] [place] [facility] [address] [id number] [place] [address]- 9535 Apr, [facility] [place] [facility] [address] [id number] [place] [address] Apr, [facility] [place] [facility] [address] [id number] [place] [address] Apr, [facility] [place] [facility] [address] [id number] [place] [address] Apr, [facility] [place] [facility] [address] [id number] [place] [address]- [address]11 Apr, [facility] [place] [facility] [address] [id number] [place] [address] Mar, [facility] [place] [facility] [address] [id number] [place] [address] February, [facility] [place] [facility] [address] [id number] [place] [address]0 Jan, [facility] [place] [facility] [address] [facility] [id number] [place] [address] Dec, [facility] [place] [facility] [address] [facility] [id number] [place] [address] Dec, [facility] [place] [facility] [address] [facility] [id number] [place] [id number] Nov, [facility] [place] [facility] [address] [id number] [place] [address]007 Nov, [facility] [place] [facility] [address] [id number] [place] [address]- [address]334 Nov, [facility] [place] [facility] [address] [facility] [id number] [place] [address] Nov, [facility] [place] [facility] [address] [id number] [place] [address] Nov, [facility] [place] [address] [id number] [address] Nov, [facility] [place] [address] [facility] [id number] [place] [address] Nov, [facility] [address] [facility] [id number][place] [id number] Oct, [facility] [place] [address] [facility] [id number] [address] Oct, [facility] [address] [facility] [id number] [place] [address] Oct, [facility] [address] [facility] [id number] [address] Oct, [facility] [address] [id number] [address] Oct, [facility] [address] [id number] [address] Oct, [facility] [address] [id number] [address] Sep, [facility] [address] [id number] [address] Aug, [facility] [address] [id number] [address] Jul, [facility] [address] [id number] [address] Jul, [facility] [address] [facility] [id number] [address] Jul, [facility] [id number] [address] Jul, [facility] [address] [id number] [address] Jul, IMMUNIZATIONS Vaccine Route Administration Date Status SHINGRIX Unknown Jun 17, 2018 Administered SOCIAL HISTORY Never Assessed REASON FOR VISIT diabetic melissaBrooklynn whitlock PLAN OF CARE Activity Details Follow Up prn Reason: VITAL SIGNS Height 66 in 2018-06-17 Weight 181.0 lbs 2018-06-17 Temperature 98.1 degrees Fahrenheit 2018-06-17 Heart Rate 78 bpm 2018-06-17 Respiratory Rate 18 2018-06-17 BMI 29.21 kg/m2 2018-06-17 Blood pressure systolic 120 mmHg 2018-06-17 Blood pressure diastolic 60 mmHg 2018-06-17 MEDICATIONS Medication Instructions Dosage Frequency Start Date End Date Duration Status Metoprolol Succinate ER 25 MG TAKE 1 TABLET TWICE DAILY 90 Active Metformin HCl 500 mg Orally Twice a day 1 tablet with meals 12h Nov, Active Glimepiride 4 MG TAKE 1 TABLET DAILY WITH BREAKFAST OR THE FIRST MAIN MEAL OF THE DAY 90 Active Allopurinol 300 MG TAKE 1 TABLET TWICE DAILY 90 Active Fish Oil 1000 MG Orally Twice a day 1 capsule 12h Active Voltaren 1 % Active Crestor 20 MG Orally Once a day 1 tablet 24h February, Active Potassium 99 MG Orally Once a day 1 tablet 24h Active Albuterol Sulfate (2.5 MG/3ML) 0.083% Inhalation up to 6 times per day as needed for shortness of breath/wheezing 3 ml Jan, Active Nebulizer/Adult Mask 1 by inhalation route as directed as directed Jan Active Symbicort 160-4.5 MCG/ACT Inhalation Once a day 2 puffs 24h Active Omeprazole 20 MG TAKE 1 CAPSULE EVERY DAY 90 Active Trulicity 0.75 MG/0.5ML Subcutaneous once weekly 0.5 ml Jul, Active Ventolin HFA 90 mcg/actuation inhale 2 puff by Inhalation route as needed every 6 hours PRN for cough or wheeze Mar, Active Montelukast Sodium 10 MG Orally Once a day 1 tablet in the evening 24h Active Gabapentin 300 MG TAKE 1 CAPSULE TWICE DAILY 90 Active Eliquis 5 mg 1 tab(s) po bid Active Tricor 145 MG Orally Once a day 1 tablet 24h Active Aspirin 81 mg chew 1 tablet (81 mg) by oral route once daily Oct, Active Fluticasone Propionate 50 MCG/ACT USE 1 SPRAY IN EACH NOSTRIL TWICE DAILY 90 Active Lisinopril-Hydrochlorothiazide 10-12.5 MG TAKE 1 TABLET EVERY DAY 90 Active Magnesium Oxide 400 mg Orally Once a day 1 tablet 24h Nov,May 90 days Active Meloxicam 7.5 MG Orally Once a day 1 tablet-take with food for pain 24h Jan, Active Fluoxetine HCl 20 MG TAKE 2 CAPSULES ONE TIME DAILY 90 Active Incruse Ellipta 62.5 MCG/INH Inhalation Once a day 1 puff 24h 07 Aug, 2016 Active Shingrix 50 mcg Intramuscular 1 IM today and repeat in 2-6 months as directed February, Unknown RESULTS No Results PROCEDURES Procedure Date Ordered Result Body Site [facility] VISIT ESTABLISHED PATIENT Jun 17, 2018 INSTRUCTIONS MEDICATIONS ADMINISTERED No Known Medications [...]
--- OUTSIDE RECORDS SUMMARY | 2018-12-17 08:05 | XMS REPORT ---
Author Author ABDIRAHMAN MARIBEL [facility] Address [address] [place] [address] Care Team Providers Care Former Hand Name Role Phone MARIBEL GARY Unavailable PROBLEMS Type Condition ICD9-CM Code [id number] Code Onset Dates Condition Status SNOMED Code Problem Hypomagnesemia E83.42 Active 500026045 Problem Hyperlipidemia LDL goal <70 E78.5 Active 74845868 Problem Clostridium difficile diarrhea A04.7 Active 2415158988226 Problem Type 2 diabetes mellitus without complication, without long-term current use of insulin E11.9 Active 867493601 Problem Encounter for Zostavax administration Z23 Active 857804473 Problem Encounter for diabetic foot exam E11.9 Active 73699738 Problem Diabetes type 2, controlled E11.9 Active 68349120 Problem Arthritis, lumbar spine M47.9 Active 646199068 Problem Other obesity due to excess calories E66.09 Active 714749608 Problem Body mass index (BMI) of 30.0-30.9 in adult Z68.30 Active 120211296 Problem Contact dermatitis, unspecified contact dermatitis type, unspecified trigger L25.9 Active 66904985 Problem History of shingles Z86.19 Active 142676265990688 Problem Pure hypercholesterolemia E78.0 Active 777499016 Problem Hx of prison use 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 Active 426358660 Problem High triglycerides E78.1 Active 150361190 Problem Essential hypertension with goal blood pressure less than 130\/80 I10 Active 97441596 Problem Uncontrolled type 2 diabetes mellitus without complication, without long-term current use of insulin E11.65 Active 527149176 Problem Leg cramps, sleep related G47.62 Active 49887823 Problem Controlled type 2 diabetes mellitus without complication, without long -term current use of insulin E11.9 Active 896847281 Problem COPD exacerbation J44.1 Active 653362485 Problem Hyperlipidemia LDL goal <70 E78.5 Active 70713035 Problem Recurrent pneumonia J18.9 Active 474029215 ALLERGIES No Information ENCOUNTERS Encounter Location Date Diagnosis [address] [id number] [id number] Jun, Type 2 diabetes mellitus without complication, without long-term current use of insulin E11.[address] [facility] [address] [id number][place] [address]95[address] May, Encounter for diabetic foot exam E11.9 [facility] [address] [id number][place] [address] May, [facility] [id number], [place] [address]69034[address] May, [facility] [id number], [place] [address]236235[address] May, Diabetes type 2, controlled E11.9 and Contact dermatitis, unspecified contact dermatitis type, unspecified trigger L25.9 [facility] [address] [place] [address] AVE [id number], [place] 445212778 Apr, [facility] [id number] [address] Mar, [facility] [address]005[address] [address] February, [facility] [address] [place] [address] AV [id number][place] [address] February, Diabetes type 2, controlled E11.9 ; Other obesity due to excess calories E66.09 ; Body mass index (BMI) of 30.0-30.9 in adult Z68.30 and History of shingles Z86.19 [facility] [address] [id number][place] [address] Jan, Uncontrolled type 2 diabetes mellitus without complication, without long-term current use of insulin E11.65 [facility] [address] [id number], [place] 205495295 Nov, Hypomagnesemia E83.42 and Uncontrolled type 2 diabetes mellitus without complication, without long-term current use of insulin E11.[address] [facility] [address] [address] [id number] [place] [address] Nov, Uncontrolled type 2 diabetes mellitus without complication, without long-term current use of insulin E11.65 ; Hypomagnesemia E83.42 and Hyperlipidemia LDL goal <70 [address] [facility] [address] [address] [id number][place] [id number] Oct, [facility] [address] [facility] [id number] [place] [address] Sep, [facility] [address] [address] [id number], [place] 640[address]854 Aug, [facility] [address] [address] [id number], [place] 501000484 Aug, Hypomagnesemia E83.[address] [facility] [address] [id number][place] [address]89[address] Aug, Uncontrolled type 2 diabetes mellitus without complication, without long-term current use of insulin E11.65 and Hypomagnesemia E83.[address] [facility] [address] [id number], [place] 4839[address] Aug, [facility] [address] [address] [id number][place] 2331345[address] Jul, COPD exacerbation J44.[address] [facility] [address] [address] [id number][place] 288757281 Jul, Clostridium difficile diarrhea A04.[address] [facility] [address] [id number], [place] 383[address] Jun, [facility] [address] [address] [id number], [place] 107407742 May, Clostridium difficile diarrhea A04.[address] [facility] [address] [id number][place] [id number] May, Clostridium difficile diarrhea A04.[address] [facility] [address] [address] [id number] [place] [address] May, Hypomagnesemia E83.[address] [facility] [address] [address] [id number], [place] 689760305 May, Uncontrolled type 2 diabetes mellitus without complication, without long-term current use of insulin E11.65 ; Clostridium difficile diarrhea A04.7 and Hypomagnesemia E83.[address] [facility] [address] [address] [id number], [place] 8848439[address] May, [facility] [address] [address] [id number], [place] [id number] May, [facility] [address] [address] [id number], [place] 907041738 Apr, Clostridium difficile diarrhea A04.7 and Hypomagnesemia E83.[address] [facility] [address] [id number], [place] 142454703 Apr, [facility] [address] [address] [id number], [place] 390218137 Apr, High triglycerides E78.[address] [facility] [address] [address] [id number], [place] 165623398 February, Recurrent pneumonia J18.[address] [facility] [address] [address] [id number], [place] 825463104 February, Hypomagnesemia E83.42 [facility] [address] [facility] [id number], [place] 75793157- [address] February, [facility] [address] [address] [id number], [place] 337942557 February, COPD exacerbation J44.[address] [facility] [address] [address] [id number], [place] 353549292 February, [facility] [address] [address] [id number], [place] 2829138[address] Jan, Uncontrolled type 2 diabetes mellitus without complication, without long-term current use of insulin E11.65 and Arthritis, lumbar spine M47.[address] [facility] [address] [address] [id number] [place] 1220[address] Dec, [facility] [address] [id number] [place] [address]130[address] Dec, [facility] [address] [address] [id number], [place] 647105475 Oct, [facility] [address] [address] [id number], [place] 446709470 Oct, Uncontrolled type 2 diabetes mellitus without complication, without long-term current use of insulin E11.[address] [facility] [address] [id number], [place] 720029210 Sep, Uncontrolled type 2 diabetes mellitus without complication, without long-term current use of insulin E11.[address] [facility] [address] [id number], [place] 941244035 Aug, [facility] [address] [address] [id number], [place] 517794105 Aug, [facility] [address] [facility] [id number][place] 836[place] Aug, [facility] [address] [address] [id number], [place] 355903119 Jul, [facility] [address] [address] [id number], [place] 864028017 Jul, Uncontrolled type 2 diabetes mellitus without complication, without long-term current use of insulin E11.65 ; Encounter for immunization Z23 and Leg cramps, sleep related G47.[address] [facility] [address] [address] [id number] [place] [address]592338[address] May, [facility] [address] [id number], [place] 640832898 Apr, [facility] [address] [id number], [place] 684171102 Apr, Uncontrolled type 2 diabetes mellitus without complication, without long-term current use of insulin E11.65 and Hyperlipidemia LDL goal <70 E78.5 [facility] [address] [address] [id number] [place] 1455[address] Mar, [facility] [address] [address] [id number], [place] [address]838052[address] Mar, [facility] [address] [id number], [place] 794400584 Mar, Obstructive chronic bronchitis with exacerbation J44.1 [facility] [place] [address] [facility] [id number], [place] 387448- [address] February, [facility] [address] [facility] [address] [id number], [place] 828157247 February, [facility] [place] [address]65[address], [place] [address] February, [facility] [address] [id number], [place] 789181618 February, Controlled type 2 diabetes mellitus without complication, without long-term current use of insulin E11.9 [facility] [place] [address] [facility] [id number] [address] February, [facility] [address] [facility] [address] [id number], [place] 733698222 Jan, Pneumonia of both lungs due to infectious organism, unspecified part of lung J18.9 ; Pure hypercholesterolemia E78.0 and Hx of prison use 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 [facility] [address] [id number], [place] 076216426 Jan, [facility] [place] [address] [facility] [id number], [place] [address] Jan, [facility] [address] [id number], [place] 213604272 Dec, Arthritis, lumbar spine M47.9 ; Essential hypertension with goal blood pressure less than 130\/80 I10 and Pneumonia of left lower lobe due to infectious organism J18.[address] [facility] [address] [id number], [place] 985379603 Dec, [facility] [address] [id number], [place] 369793166 Nov, Arthritis, lumbar spine M47.9 [facility] [place] [address] [id number] [address] Nov, [facility] [address], [place] [address] Oct, [facility] [address] [id number], [place] 157796228 Oct, High triglycerides E78.1 [facility] [address] [id number], [place] 580155344 Oct, Diabetes type 2, controlled E11.9 ; Arthritis, lumbar spine M47.9 and Encounter for Zostavax administration Z23 [facility] [place] [address], [place] [address] Sep, [facility] [place] [address], [place] 418[place]- 3969 Aug, [facility] [place] [address], [place] 167[place]- [address] Aug, [facility] [address] [id number], [place] [id number] Jul, [facility] [address] [id number], [place] 380570103 Jul, Encounter for immunization Z23 [facility] [place] [address] [facility] [id number][place] [address]- [address]06 Jun, [facility] [address] [id number], [place] 464461226 Jun, [facility] [address] [id number], [place] 838133412 Jun, Diabetes 250.00 ; Interstitial pulmonary disease 515 and DJD ( degenerative joint disease), lumbosacral 722.[address] [facility] [address] [id number], [place] 295160540 Apr, [facility] [address] [facility] [id number] 161719655 Apr, [facility] [address] [id number], [place] [id number] Mar, DJD (degenerative joint disease), lumbosacral 722.52 and Lumbago 724.[address] [facility] [address] [id number], [place] [id number] February, Lumbago 724.2 and Abnormal x-ray of thoracic spine 793.[address] [facility] [address] [id number], [place] 598938415 February, Gout of knee 274.00 ; Lumbago with sciatica 724.3 and Interstitial pulmonary disease [address] [facility] [address] [id number], [place] [id number] February, [facility] [place] [facility] [address], [place] [address]- [address] Jan, [facility] [address]65100[place], [place] [address]- 9145 Jan, [facility] [address], [place] [address]- 5[address] Dec, [facility] [address], [place] 84823284- 8389 Dec, [facility] [address], [place] [address]- 6662 Dec, [facility] [place] [facility] [id number] [place] [address]- 7231 Dec, [facility] [place] [facility] [address]178[place]- 2905 Nov, [facility] [place] [address] [id number] [place] [address] Nov, 2014 [facility] [place] [facility] [address] [id number] [place] [address]- 4[address] Nov, 2014 [facility] [place] [facility] [address] [id number] [place] [address] 2546 18 Nov, 2014 [facility] [place] [facility] [address] [id number] [place] [address]- 9856 Nov, 2014 [facility] [place] [facility] [address] [id number] [place] [address]- 2547 Nov, 2014 [facility] [place] [facility] [address] [id number] [place] [address]- 0731 Nov, 2014 [facility] [place] [facility] [address] [facility] [id number] [place] [address]- 9274 Nov, 2014 [facility] [place] [facility] [address] [facility] [id number] [place] [address]- 4345 12 Nov, 2014 [facility] [place] [facility] [address] [id number] [place] [address]- 9164 Nov, 2014 [facility] [place] [facility] [address] [facility] [id number] [place] [address]- 3302 Nov, 2014 [facility] [place] [facility] [address] [facility] [id number] [place] [address]- 7074 Nov, [facility] [place] [facility] [address] [facility] [id number] [place] [address]- 2549 Nov, [facility] [place] [facility] [address] [facility] [id number] [place] [address]- 4284 Oct, [facility] [place] [facility] [address] [id number] [place] [address]- 9558 Oct, [facility] [place] [facility] [address] [facility] [id number] [place] [address]- 2446 Oct, [facility] [place] [facility] [address] [facility] [id number][place] [address]- 2900 Oct, [facility] [place] [facility] [address] [id number] [place] [address]- 1482 Oct, [facility] [place] [facility] [address] [id number] [place] [address]- 7273 Oct, [facility] [place] [facility] [address] [id number] [place] [address]- 2898 Oct, [facility] [place] [facility] [address] [id number] [place] [address]- 5477 Oct, [facility] [place] [facility] [address] [id number] [place] [address]- 6970 Sep, [facility] [place] [facility] [address] [id number] [place] [address]- 2626 Sep, [facility] [place] [facility] [address] [id number] [place] [address]- 8063 Aug, [facility] [place] [facility] [address] [id number] [place] [address]- 1485 Aug, [facility] [place] [facility] [address] [id number] [place] [address]- 1735 Aug, [facility] [place] [facility] [address] [id number] [place] [address]- 3075 Aug, [facility] [place] [facility] [address] [id number], [place] [address]- 4221 Jul, [facility] [place] [facility] [address] [id number], [place] [address]- 9175 Jul, [facility] [place] [facility] [address] [id number] [place] [address]- 6253 29 Jun, 2014 [facility] [place] [facility] [address] [id number] [place] [address]- 0319 29 Jun, 2014 [facility] [place] [facility] [address] [id number] [place] [address]- 9343 16 Jun, 2014 [facility] [place] [facility] [address] [id number] [place] [address]- 5841 16 Jun, 2013 [facility] [place] [facility] [address] [id number] [place] [address]- 1606 11 Jun, 2013 [facility] [place] [facility] [address] [id number] [place] [address]- 1716 11 Jun, 2013 [facility] [place] [facility] [address] [id number] [place] [address]- 4046 04 Jun, 2013 [facility] [place] [facility] [address] [id number] [place] [address]- 3535 04 Jun, 2013 [facility] [place] [facility] [address] [id number] [place] [address]- 5192 03 Jun, 2013 [facility] [place] [facility] [address] [id number] [place] [address]- 7036 02 Jun, 2013 [facility] [place] [facility] [address] [id number] [place] [address]- 2688 Jun, 2013 [facility] [place] [facility] [address] [id number] [place] [address]- 8127 May, [facility] [place] [facility] [address] [id number] [place] [address]- 9734 May, [facility] [place] [facility] [address] [id number] [place] [address]- 4150 Apr, [facility] [place] [facility] [address] [id number] [place] [address]- 9034 Apr, [facility] [place] [facility] [address] [id number] [place] [address]- 1509 Apr, [facility] [place] [facility] [address] [id number] [place] [address]- 5178 Apr, [facility] [place] [facility] [address] [id number] [place] [address]- 1884 Apr, [facility] [place] [facility] [address] [id number] [place] [address]- 5336 Apr, [facility] [place] [facility] [address] [id number] [place] [address]- 4057 Apr, [facility] [place] [facility] [address] [id number] [place] [address]- 0603 Apr, [facility] [place] [facility] [address] [id number] [place] [address]- 3168 Apr, [facility] [place] [facility] [address] [id number] [place] [address]- 1133 Apr, [facility] [place] [facility] [address] [id number] [place] [address]- 2657 Mar, [facility] [place] [facility] [address] [id number] [place] [address]- 5612 Mar, [facility] [place] [facility] [address] [id number] [place] [address]- 3108 Mar, [facility] [place] [facility] [address] [id number] [place] [address]- 0150 Mar, [facility] [place] [facility] [address] [id number] [place] [address]- 2304 Mar, [facility] [place] [facility] [address] [id number] [place] [address]- 8296 Mar, [facility] [place] [facility] [address] [id number] [place] [address]- 2876 Mar, [facility] [place] [facility] [address] [id number] [place] [address]- 9877 Mar, [facility] [place] [facility] [address] [id number] [place] [address]- 5679 Mar, [facility] [place] [facility] [address] [id number] [place] [address]- 8999 Mar, [facility] [place] [facility] [address] [id number] [place] [address]- 6393 Mar, [facility] [place] [facility] [address] [id number] [place] [address]- 0109 Mar, [facility] [place] [facility] [address] [id number] [place] [address]- 9531 Mar, [facility] [place] [facility] [address] [id number] [place] [address]- 9459 Mar, [facility] [place] [facility] [address] [id number] [place] [address]- 1062 Mar, [facility] [place] [facility] [address] [id number] [place] [address]- 8575 Mar, [facility] [place] [facility] [address] [id number] [place] [address]- 3674 February, [facility] [place] [facility] [address] [id number] [place] [address]- 9088 February, [facility] [place] [facility] [address] [id number] [place] [address]- 1496 Jan, [facility] [place] [facility] [address] [id number] [place] [address]- 3381 Jan, [facility] [place] [facility] [address] [id number] [place] [address]- 7423 Jan, [facility] [place] [facility] [address] [id number] [place] [address]- 2901 Jan, [facility] [place] [facility] [address] [id number] [place] [address]- 1753 Dec, [facility] [place] [facility] [address] [id number] [place] [address]- 4296 Dec, [facility] [place] [facility] [address] [id number] [place] [address]- 7859 Dec, [facility] [place] [facility] [address] [id number] [place] [address]- 3547 Dec, [facility] [place] [facility] [address] [id number] [place] [address]- 8849 Nov, [facility] [place] [facility] [address] [id number] [place] [address]- 2697 Nov, [facility] [address] [id number] [place] [address]- 4235 Oct, [facility] [place] [facility] [address] [id number] [place] [address] Oct, [facility] [place] [facility] [address] [id number] [place] [address] Oct, [facility] [place] [facility] [address] [id number] [place] [address] Oct, [facility] [place] [facility] [address] [id number] [place] [address] Oct, [facility] [address] [id number] [place] [address] Oct, [facility] [address] [id number] [place] [address] Jun, [facility] [address] [id number] [place] [address] Jun, [facility] [address] [id number] [place] [address] Jun, [facility] [address] [id number] [id number] Jun, [facility] [place] [facility] [address] [id number] [place] [address] Apr, [facility] [place] [facility] [address] [id number] [place] [address] Apr, [facility] [place] [facility] [address] [id number] [place] [address] Apr, [facility] [place] [facility] [address] [id number] [place] [address] Apr, [facility] [place] [facility] [address] [id number] [place] [address] Mar, [facility] [address] [id number] [place] [address] Mar, [facility] [address] [id number] [place] [address] February, [facility] [address] [id number] [place] [address] Jan, [facility] [address] [id number] [place] [address] Jan, [facility] [address] [id number] [place] [address] Jan, [facility] [address] [id number] [place] [address] Dec, [facility] [address] [id number] [place] [address] Dec, [facility] [address] [id number] [place] [address] Dec, [facility] [address] [id number] [place] [address] Nov, [facility] [address] [id number] [place] [address] Nov, [facility] [address] [id number] [place] [address] Oct, [facility] [address] [id number] [place] [address] Oct, [facility] [place] [facility] [address] [id number] [place] [address] Oct, [facility] [place] [facility] [address] [id number] [place] [address] Sep, [facility] [place] [facility] [address] [id number] [place] [address] Sep, [facility] [address] [id number] [place] [address] Sep, [facility] [place] [facility] [address] [id number] [place] [address] Sep, [facility] [place] [facility] [address] [facility] [id number] [place] [address] Sep, [facility] [place] [facility] [address] [facility] [id number] [place] [address] Sep, [facility] [place] [facility] [address] [id number] [place] [address] Sep, [facility] [place] [facility] [address] [id number] [place] [address] Sep, [facility] [place] [facility] [address] [facility] [facility] [id number] [place] [address] Aug, [facility] [place] [facility] [address] [facility] [id number], [place] [address] Aug, [facility] [place] [facility] [address] [facility] [id number], [place] [address] Jul, [facility] [place] [facility] [address] [facility] [id number] [place] [address] Jul, [facility] [place] [facility] [address] [facility] [id number], [place] [address] Jul, [facility] [place] [facility] [address] [facility] [id number], [place] [address] Jul, [facility] [place] [facility] [address] [facility] [id number], [place] [address] Jun, [facility] [place] [facility] [address] [id number], [place] [address] Jun, [facility] [address] [id number] [id number] Jun, [facility] [address] [facility] [id number][place] [id number] Jun, [facility] [place] [facility] [address] [id number] [place] [address] 11 Jun, 2012 [facility] [place] [facility] [address] [id number] [place] [address] 10 Jun, 2012 [facility] [place] [facility] [address] [id number] [place] [address] 08 Jun, 2012 [facility] [place] [facility] [address] [id number] [place] [address] 05 Jun, 2012 [facility] [place] [facility] [address] [id number] [place] [address] 254 May, [facility] [place] [facility] [address] [id number] [place] [address] May, [facility] [place] [facility] [address] [id number] [place] [address] May, [facility] [place] [facility] [address] [id number] [place] [address] May, [facility] [place] [facility] [address] [id number] [place] [address] May, [facility] [place] [facility] [address] [id number] [place] [address] May, [facility] [place] [facility] [address] [facility] [id number] [place] [id number] May, [facility] [place] [facility] [address] [id number] [place] [address] Apr, [facility] [place] [facility] [address] [facility] [id number] [place] [id number] Apr, [facility] [place] [facility] [address] [id number] [place] [address] Apr, [facility] [place] [facility] [address] [id number] [place] [address]14 Apr, [facility] [place] [facility] [address] [id number] [place] [address] Apr, [facility] [place] [facility] [address] [id number] [place] [address] Apr, [facility] [place] [facility] [address] [id number] [place] [address] Apr, [facility] [place] [facility] [address] [id number] [place] [address] Apr, [facility] [place] [facility] [address] [id number] [place] [address] Apr, [facility] [place] [facility] [address] [id number] [place] [address] Apr, [facility] [place] [facility] [address] [id number] [place] [address] Mar, [facility] [place] [facility] [address] [id number] [place] [address] February, [facility] [place] [facility] [address] [id number] [place] [address] Jan, [facility] [place] [facility] [address] [id number] [place] [address] Dec, [facility] [place] [facility] [address] [id number] [place] [address] Dec, [facility] [place] [facility] [address] [facility] [id number] [place] [id number] Nov, [facility] [place] [facility] [address] [id number] [place] [address] Nov, [facility] [place] [facility] [address] [id number] [place] [address] Nov, [facility] [place] [facility] [address] [id number] [place] [address] Nov, [facility] [place] [facility] [address] [id number] [place] [address] Nov, [facility] [place] [facility] [address] [id number], [place] [address] Nov, [facility] [place] [address] [id number], [place] [address] Nov, [facility] [place] [facility] [address] [facility] [id number] [id number] Oct, [facility] [place] [address] [id number], [place] [address] Oct, [facility] [place] [address] [facility] [id number], [place] [address] Oct, [facility] [place] [address] [facility] [id number], [place] [address] Oct, [facility] [place] [address] [id number], [place] [address] Oct, [facility] [place] [id number], [place] [address] Oct, [facility] [place] [id number], [place] [address] Sep, [facility] [place] [id number], [place] [address] Aug, [facility] [place] [id number], [place] [address] Jul, [facility] [place] [address] [id number], [place] [address] Jul, [facility] [place] [address] [id number], [place] [address] Jul, [facility] [place] [address] [id number], [place] [address] Jul, [facility] [place] [address] [id number], [place] [address] Jul, IMMUNIZATIONS No Known Immunizations SOCIAL HISTORY Never Assessed REASON FOR VISIT Test results PLAN OF CARE VITAL SIGNS MEDICATIONS Unknown [...]
--- OUTSIDE RECORDS SUMMARY | 2018-12-17 08:06 | XMS REPORT ---
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 Name Role Phone MARIBEL GARY Unavailable PROBLEMS Type Condition ICD9-CM Code SJS25-RL Code Onset Dates Condition Status SNOMED Code Problem Hypomagnesemia E83.42 Active 000227403 Problem Hyperlipidemia LDL goal <70 E78.5 Active 91392360 Problem Clostridium difficile diarrhea A04.7 Active 1457291316424 Problem Type 2 diabetes mellitus without complication, without long-term current use of insulin E11.9 Active 511646175 Problem Encounter for Zostavax administration Z23 Active 074653874 Problem Encounter for diabetic foot exam E11.9 Active 72854506 Problem Diabetes type 2, controlled E11.9 Active 22019167 Problem Arthritis, lumbar spine M47.9 Active 967741072 Problem Other obesity due to excess calories E66.09 Active 849477189 Problem Body mass index (BMI) of 30.0-30.9 in adult Z68.30 Active 701130980 Problem Contact dermatitis, unspecified contact dermatitis type, unspecified trigger L25.9 Active 78506424 Problem History of shingles Z86.19 Active 206201459199130 Problem Pure hypercholesterolemia E78.0 Active 804223823 Problem Hx of group home use 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 Active 104532470 Problem High triglycerides E78.1 Active 776328072 Problem Essential hypertension with goal blood pressure less than 130\/80 I10 Active 61314588 Problem Uncontrolled type 2 diabetes mellitus without complication, without long-term current use of insulin E11.65 Active 367644773 Problem Leg cramps, sleep related G47.62 Active 83473433 Problem Controlled type 2 diabetes mellitus without complication, without long -term current use of insulin E11.9 Active 640870897 Problem COPD exacerbation J44.1 Active 600827189 Problem Hyperlipidemia LDL goal <70 E78.5 Active 21388584 Problem Recurrent pneumonia J18.9 Active 635367730 ALLERGIES Substance Reaction Event Type Date Status Lipitor muscle aches Drug Allergy May, Active ENCOUNTERS Encounter Location Date Diagnosis [address] [id number] [address] Jun, Type 2 diabetes mellitus without complication, without long-term current use of insulin E11.[address] [id number] [address] May, Encounter for diabetic foot exam E11.[address] [facility] [address] [id number][place] [address] May, [address] [id number][place] [address] May, [facility] [id number] [address] May, Diabetes type 2, controlled E11.9 and Contact dermatitis, unspecified contact dermatitis type, unspecified trigger L25.[address] [facility] [address] [id number][place] [address] Apr, [facility] [id number][place] [address] Mar, [facility] [address] [facility] [id number], [place] [address] February, [facility] [address] [id number][place] [address] February, Diabetes type 2, controlled E11.9 ; Other obesity due to excess calories E66.09 ; Body mass index (BMI) of 30.0-30.9 in adult Z68.30 and History of shingles Z86.[address] [id number] [address] Jan, Uncontrolled type 2 diabetes mellitus without complication, without long-term current use of insulin E11.[address] [id number][place] [address] Nov, Hypomagnesemia E83.42 and Uncontrolled type 2 diabetes mellitus without complication, without long-term current use of insulin E11.[address] [facility] [address] [id number][place] [address] Nov, Uncontrolled type 2 diabetes mellitus without complication, without long-term current use of insulin E11.65 ; Hypomagnesemia E83.42 and Hyperlipidemia LDL goal <[address] [facility] [address] [address] [id number][place] [address] Oct, [facility] [address] [facility] [id number][place] [address] Sep, [facility] [address] [address] [id number], [place] [address] Aug, [facility] [address] [address] [id number], [place] [address]87[address] Aug, Hypomagnesemia E83.[address] [facility] [address] [id number], [place] [address] Aug, Uncontrolled type 2 diabetes mellitus without complication, without long-term current use of insulin E11.65 and Hypomagnesemia E83.[address] [facility] [address] [id number], [place] [address] Aug, [facility] [address] [address] [id number][place] [address]06[address] Jul, COPD exacerbation J44.[address] [facility] [address] [id number], [place] [address] Jul, Clostridium difficile diarrhea A04.[address] [facility] [address] [id number], [place] [address] Jun, [facility] [address] [address] [id number], [place] [address] May, Clostridium difficile diarrhea A04.[address] [facility] [address] [id number], [place] [address] May, Clostridium difficile diarrhea A04.[address] [facility] [address] [id number], [place] [address]14245857 May, Hypomagnesemia E83.[address] [facility] [address] [id number], [place] [address]31[address] May, Uncontrolled type 2 diabetes mellitus without complication, without long-term current use of insulin E11.65 ; Clostridium difficile diarrhea A04.7 and Hypomagnesemia E83.[address] [facility] [address] [id number], [place] [address] May, [facility] [address] [address] [id number], [place] 200[address] May, [facility] [address] [address] [id number], [place] [address]005[address] Apr, Clostridium difficile diarrhea A04.7 and Hypomagnesemia E83.[address] [facility] [address] [id number], [place] [address]8445[address] Apr, [facility] [address] [address] [id number], [place] [address] Apr, High triglycerides E78.[address] [facility] [address] [address] [id number], [place] [address] February, Recurrent pneumonia J18.[address] [facility] [address] [id number], [place] [address]75383536 February, Hypomagnesemia E83.42 [facility] [address] [facility] [id number], [place] [address] February, [facility] [address] [address] [id number], [place] [address]422034 February, COPD exacerbation J44.[address] [facility] [address] [id number], [place] 6450[address] February, [facility] [address] [address] [id number], [place] 995583213 Jan, Uncontrolled type 2 diabetes mellitus without complication, without long-term current use of insulin E11.65 and Arthritis, lumbar spine M47.[address] [facility] [address] [id number] [place] [address] Dec, [facility] [address] [address] [id number] [place] [address] Dec, [facility] [address] [address] [id number], [place] 791897802 Oct, [facility] [address] [address] [id number], [place] [address] Oct, Uncontrolled type 2 diabetes mellitus without complication, without long-term current use of insulin E11.[address] [facility] [address] [id number], [place] [address]258649[address] Sep, Uncontrolled type 2 diabetes mellitus without complication, without long-term current use of insulin E11.[address] [facility] [address] [id number], [place] [address] Aug, [facility] [address] [address] [id number], [place] 819555995 Aug, [facility] [address] [facility] [id number], [place] [address] Aug, [facility] [address] [address] [id number], [place] 404[address] Jul, [facility] [address] [address] [id number], [place] 489268593 Jul, Uncontrolled type 2 diabetes mellitus without complication, without long-term current use of insulin E11.65 ; Encounter for immunization Z23 and Leg cramps, sleep related G47.[address] [facility] [address] [address] [id number], [place] [address] May, [facility] [address] [address] [id number], [place] [address]127[address] Apr, [facility] [address] [id number], [place] [address]31409[address] Apr, Uncontrolled type 2 diabetes mellitus without complication, without long-term current use of insulin E11.65 and Hyperlipidemia LDL goal <70 E78.5 [facility] [address] [id number], [place] [address]68728578 Mar, [facility] [address] [id number][place] [address] Mar, [facility] [address] [id number], [place] [address] Mar, Obstructive chronic bronchitis with exacerbation J44.1 [facility] [address]00565100[place], [place] [address] February, [facility] [address] [id number], [place] 449[address] February, [place] [address] [place] [id number] [place] [address] February, [facility] [address] [id number], [place] [address]5360[address] February, Controlled type 2 diabetes mellitus without complication, without long-term current use of insulin E11.9 [place] [address]00565100[place] February, [facility] [address] [place] [address] AVE [id number], [place] 90[address]30724 Jan, Pneumonia of both lungs due to infectious organism, unspecified part of lung J18.9 ; Pure hypercholesterolemia E78.0 and Hx of terminal gauger use 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 [facility] [address] [id number], [place] 107268145 Jan, [facility] [address]65100[place] [address]04125- [address] Jan, [facility] [address] [id number], [place] 508809673 Dec, Arthritis, lumbar spine M47.9 ; Essential hypertension with goal blood pressure less than 130\/80 I10 and Pneumonia of left lower lobe due to infectious organism J18.9 [facility] [address] [address] [id number], [place] 56576[address] Dec, [facility] [address] [address] [id number], [place] 305968077 Nov, Arthritis, lumbar spine M47.9 [facility] [address]00565100[place], [place] [address]35 Nov, [facility] [address]00565100[place], [place] [address] Oct, [facility] [address] [address] [id number], [place] 599041755 Oct, High triglycerides E78.1 [facility] [address] [address] [id number], [place] 567230412 Oct, Diabetes type 2, controlled E11.9 ; Arthritis, lumbar spine M47.9 and Encounter for Zostavax administration Z23 [facility] [address]00565100[place] [address] Sep, [facility] [address]00565100[place], [place] [address] Aug, [facility] [address]00565100[place], [place] [address]32 Aug, [facility] [address] [address] [id number], [place] 623976184 Jul, [facility] [address] [address] [id number], [place] 272440218 Jul, Encounter for immunization Z23 [facility] [address] [place] [id number], [place] [address] 6[address] Jun, [facility] [address] [address] [id number], [place] 436639687 Jun, [facility] [address] [address] [id number], [place] 615080646 Jun, Diabetes 250.00 ; Interstitial pulmonary disease 515 and DJD ( degenerative joint disease), lumbosacral 722.52 [facility] [address] [address] [id number], [place] 313307649 Apr, [facility] [address] [facility] [id number][place] [address]778[address] Apr, [facility] [address] [address] [id number], [place] 615289663 Mar, DJD (degenerative joint disease), lumbosacral 722.52 and Lumbago 724.2 [facility] [address] [address] [id number], [place] 639394578 February, Lumbago 724.2 and Abnormal x-ray of thoracic spine 793.7 [facility] [address] [address] [id number], [place] 362740591 February, Gout of knee 274.00 ; Lumbago with sciatica 724.3 and Interstitial pulmonary disease 515 [facility] [address] [facility] [address] [id number], [place] 241296481 February, [facility] [address] [place] [address]24331- [address] Jan, [facility] [address]65100[place], [place] 27316313- [address] Jan, [facility] [address]00565100[place], [place] 56118117- [address] Dec, [facility] [address]65100[place], [place] 06895459- [address] Dec, [facility] [address] [place] [id number] [place] [address]- [address] Dec, [facility] [address]65100[place], [place]398[place]- [address]199 Dec, [facility] [address] [place] [address]- 5754 Nov, [facility] [place] [facility] [address] [id number] [place] [address]- [address]66 Nov, 2014 [facility] [place] [facility] [address] [id number] [place] [address] 2546 Nov, 2014 [facility] [place] [facility] [address] [id number] [place] [address]- 2713 Nov, 2014 [facility] [place] [facility] [address] [id number] [place] [address]- 7580 Nov, 2014 [facility] [place] [facility] [address] [id number] [place] [address]- 8258 Nov, 2014 [facility] [place] [facility] [address] [id number] [place] [address]- 7363 Nov, 2014 [facility] [place] [facility] [address] [facility] [id number] [place] [address]- 6951 Nov, 2014 [facility] [place] [facility] [address] [id number] [place] [address]- 8720 Nov, 2014 [facility] [place] [facility] [address] [id number] [place] [address]- 4237 Nov, 2014 [facility] [place] [facility] [address] [facility] [id number] [place] [address]- 9022 Nov, [facility] [place] [facility] [address] [facility] [id number] [place] [address] 2540 Nov, [facility] [place] [facility] [address] [facility] [id number] [place] [address]- 2544 Nov, [facility] [place] [facility] [address] [id number] [place] [address]- 6053 Oct, [facility] [place] [facility] [address] [id number] [place] [address]- 2993 Oct, [facility] [place] [facility] [address] [facility] [id number] [place] [address]- 8420 Oct, [facility] [place] [facility] [address] [id number] [place] [address]- 7261 Oct, [facility] [place] [facility] [address] [id number] [place] [address]- 6824 Oct, [facility] [place] [facility] [address] [id number] [place] [address]- 6130 Oct, [facility] [place] [facility] [address] [id number] [place] [address]- 0765 Oct, [facility] [place] [facility] [address] [id number] [place] [address]- 8526 Oct, [facility] [place] [facility] [address] [id number] [place] [address]- 8400 Sep, [facility] [place] [facility] [address] [id number] [place] [address]- 1466 Sep, [facility] [place] [facility] [address] [id number] [place] [address]- 1021 Aug, [facility] [place] [facility] [address] [id number] [place] [address]- 4670 Aug, [facility] [place] [facility] [address] [id number] [place] [address]- 2100 Aug, [facility] [place] [facility] [address] [id number] [place] [address]- 3785 Aug, [facility] [place] [facility] [address] [id number] [place] [address]- 0234 Jul, [facility] [place] [facility] [address] [id number] [place] [address]- 2050 Jul, [facility] [place] [facility] [address] [id number] [place] [address]- 9629 29 Jun, 2014 [facility] [place] [facility] [address] [id number] [place] [address]- 2232 29 Jun, 2014 [facility] [place] [facility] [address] [id number] [place] [address]- 9940 16 Jun, 2013 [facility] [place] [facility] [address] [id number] [place] [address]- 4405 16 Jun, 2013 [facility] [place] [facility] [address] [id number] [place] [address]- 6089 11 Jun, 2013 [facility] [place] [facility] [address] [id number] [place] [address]- 6748 11 Jun, 2013 [facility] [place] [facility] [address] [id number] [place] [address]- 7268 04 Jun, 2013 [facility] [place] [facility] [address] [id number] [place] [address]- 0262 04 Jun, 2013 [facility] [place] [facility] [address] [id number] [place] [address]- 4221 03 Jun, 2013 [facility] [place] [facility] [address] [id number] [place] [address]- 4082 Jun, 2013 [facility] [place] [facility] [address] [id number] [place] [address]- 5790 Jun, [facility] [place] [facility] [address] [id number] [place] [address]- 7561 May, [facility] [place] [facility] [address] [id number] [place] [address]- 9418 May, [facility] [place] [facility] [address] [id number] [place] [address]- 0322 Apr, [facility] [place] [facility] [address] [id number] [place] [address]- 5911 Apr, [facility] [place] [facility] [address] [id number] [place] [address]- 2310 Apr, [facility] [place] [facility] [address] [id number] [place] [address]- 6556 Apr, [facility] [place] [facility] [address] [id number] [place] [address]- 5052 Apr, [facility] [place] [facility] [address] [id number] [place] [address]- 3770 14 Apr, 2014 [facility] [place] [facility] [address] [id number] [place] [address]- 3252 Apr, [facility] [place] [facility] [address] [id number] [place] [address]- 8396 Apr, [facility] [place] [facility] [address] [id number] [place] [address]- 5108 Apr, [facility] [place] [facility] [address] [id number] [place] [address]- 3099 Apr, [facility] [place] [facility] [address] [id number] [place] [address]- 6054 Mar, [facility] [place] [facility] [address] [id number] [place] [address]- 1645 Mar, [facility] [place] [facility] [address] [id number] [place] [address]- 7595 Mar, [facility] [place] [facility] [address] [id number] [place] [address]- 8638 Mar, [facility] [place] [facility] [address] [id number] [place] [address]- 0216 Mar, [facility] [place] [facility] [address] [id number] [place] [address]- 5092 Mar, [facility] [place] [facility] [address] [id number] [place] [address]- 8425 Mar, [facility] [place] [facility] [address] [id number] [place] [address]- 2248 Mar, [facility] [place] [facility] [address] [id number] [place] [address]- 8634 Mar, [facility] [place] [facility] [address] [id number] [place] [address]- 4056 Mar, [facility] [place] [facility] [address] [id number] [place] [address]- 1284 Mar, [facility] [place] [facility] [address] [id number] [place] [address]- 0622 Mar, [facility] [place] [facility] [address] [id number] [place] [address]- 5810 Mar, [facility] [place] [facility] [address] [id number] [place] [address]- 4918 Mar, [facility] [place] [facility] [address] [id number] [place] [address]- 3845 Mar, [facility] [place] [facility] [address] [id number] [place] [address]- 0322 Mar, [facility] [place] [facility] [address] [id number] [place] [address]- 5677 February, [facility] [place] [facility] [address] [id number] [place] [address]- 3380 February, [facility] [place] [facility] [address] [id number] [place] [address]- 6895 Jan, [facility] [place] [facility] [address] [id number] [place] [address]- 0622 Jan, [facility] [place] [facility] [address] [id number] [place] [address]- 3366 Jan, [facility] [place] [facility] [address] [id number] [place] [address]- 7039 Jan, [facility] [place] [facility] [address] [id number] [place] [address]- 8793 Dec, [facility] [place] [facility] [address] [id number] [place] [address]- 7362 Dec, [facility] [place] [facility] [address] [id number] [place] [address]- 4029 Dec, [facility] [place] [facility] [address] [id number] [place] [address]- 6050 Dec, [facility] [place] [facility] [address] [id number], [place] [address]- 3976 Nov, [facility] [address] [id number] [place] [address] Nov, [facility] [address] [id number], [place] [address] Oct, [facility] [address] [id number] [place] [address] Oct, [facility] [place] [facility] [address] [id number], [place] [address] Oct, [facility] [address] [id number] [place] [address] Oct, [facility] [address] [id number] [place] [address] Oct, [facility] [address] [id number], [place] [address] Oct, [facility] [address] [id number] [place] [address] Jun, [facility] [address] [id number], [place] [address] Jun, [facility] [address] [facility] [id number], [place] [address] Jun, [facility] [address] [address] [facility] [id number] [id number] Jun, [facility] [place] [facility] [address] [id number], [place] [address] Apr, [facility] [place] [facility] [address] [id number] [place] [address] Apr, [facility] [place] [facility] [address] [id number], [place] [address] Apr, [facility] [place] [facility] [address] [id number], [place] [address] Apr, [facility] [place] [facility] [address] [id number] [place] [address] Mar, [facility] [address] [id number] [place] [address] Mar, [facility] [address] [id number] [place] [address] February, [facility] [address] [id number] [place] [address] Jan, [facility] [address] [id number] [place] [address] Jan, [facility] [address] [id number] [place] [address] Jan, [facility] [address] [id number] [place] [address] Dec, [facility] [address] [id number] [place] [address] Dec, [facility] [address] [id number] [place] [address] Dec, [facility] [address] [id number] [place] [address] Nov, [facility] [address] [id number] [place] [address] Nov, [facility] [address] [id number] [place] [address] Oct, [facility] [address] [id number] [place] [address] Oct, [facility] [address] [id number] [place] [address] Oct, [facility] [address] [id number] [place] [address] Sep, [facility] [address] [id number] [place] [address] Sep, [facility] [place] [facility] [address] [id number] [place] [address] Sep, [facility] [place] [facility] [address] [id number] [place] [address] Sep, [facility] [place] [facility] [address] [id number] [place] [address] Sep, [facility] [place] [facility] [address] [id number] [place] [address] Sep, [facility] [place] [facility] [address] [id number] [place] [address] Sep, [facility] [place] [facility] [address] [id number] [place] [address] Sep, [facility] [place] [facility] [address] [facility] [id number] [place] [address] Aug, [facility] [place] [facility] [address] [id number], [place] [address] Aug, [facility] [place] [facility] [address] [id number] [place] [address] Jul, [facility] [place] [facility] [address] [facility] [id number], [place] [address] Jul, [facility] [place] [facility] [address] [facility] [id number], [place] [address] Jul, [facility] [place] [facility] [address] [id number], [place] [address] Jul, [facility] [place] [facility] [address] [id number], [place] [address] Jun, [facility] [place] [facility] [address] [id number], [place] [address] Jun, [facility] [address] [id number] [id number] Jun, [facility] [address] [id number] [id number] Jun, [facility] [place] [facility] [address] [id number] [place] [address] 11 Jun, 2012 [facility] [place] [facility] [address] [id number] [place] [address] 10 Jun, 2012 [facility] [place] [facility] [address] [id number] [place] [address] 08 Jun, 2012 [facility] [place] [facility] [address] [id number] [place] [address] 05 Jun, 2012 [facility] [place] [facility] [address] [id number] [place] [address] May, [facility] [place] [facility] [address] [id number] [place] [address] May, [facility] [place] [facility] [address] [id number] [place] [address] May, [facility] [place] [facility] [address] [id number] [place] [address] May, [facility] [place] [facility] [address] [id number] [place] [address] May, [facility] [place] [facility] [address] [id number] [place] [address] May, [facility] [place] [facility] [id number] [id number] May, [facility] [place] [facility] [address] [id number], [place] [address] Apr, [facility] [place] [facility] [address] [id number] [place] [id number] Apr, [facility] [place] [facility] [address] [id number] [place] [address] Apr, [facility] [place] [facility] [address] [id number] [place] [address] Apr, [facility] [place] [facility] [address] [id number] [place] [address] Apr, [facility] [place] [facility] [address] [id number] [place] [address] Apr, [facility] [place] [facility] [address] [id number] [place] [address] Apr, [facility] [place] [facility] [address] [id number] [place] [address] Apr, [facility] [place] [facility] [address] [id number] [place] [address] Apr, [facility] [place] [facility] [address] [id number] [place] [address] Apr, [facility] [place] [facility] [address] [id number] [place] [address] Mar, [facility] [place] [facility] [address] [id number] [place] [address] February, [facility] [place] [facility] [address] [id number] [place] [address] Jan, [facility] [place] [facility] [address] [id number] [place] [address] Dec, [facility] [place] [facility] [address] [id number] [place] [address] Dec, [facility] [place] [facility] [address] [facility] [id number] [place] [id number] Nov, [facility] [place] [facility] [address] [id number] [place] [address] Nov, [facility] [place] [facility] [address] [id number] [place] [address] Nov, [facility] [place] [facility] [address] [id number] [place] [address] Nov, [facility] [place] [facility] [address] [id number] [place] [address] Nov, [facility] [place] [facility] [address] [id number] [place] [address] [address], [address] [facility] [address] [facility] [id number] [place] [address] Nov, [facility] [address] [id number] [place] [id number] Oct, [facility] [address] [facility] [id number] [address] Oct, [facility] [address] [facility] [id number] [place] [address] Oct, [facility] [address] [facility] [id number] [place] [address] Oct, [facility] [address] [facility] [id number] [place] [address] Oct, [facility] [id number] [address] Oct, [facility] [address] [id number], [place] [address] Sep, [facility] [id number] [address] Aug, [facility] [address] [id number], [place] [address] Jul, [facility] [address] [id number] [address] Jul, [facility] [address] [facility] [id number], [place] [address] Jul, [facility] [id number] [address] Jul, [facility] [address] [facility] [id number], [place] [address] Jul, IMMUNIZATIONS No Known Immunizations SOCIAL HISTORY Never Assessed REASON FOR VISIT Diabetes f/u Cristina handy PLAN OF CARE Activity Details Follow Up 6 Weeks-Dr. Hannon Reason:DM shoes VITAL SIGNS Height 66 in 2018-05-28 Weight 178.3 lbs 2018-05-28 Temperature 97.8 degrees Fahrenheit 2018-05-28 Heart Rate 70 bpm 2018-05-28 Respiratory Rate 18 2018-05-28 Oximetry 95 % 2018-05-28 BMI 28.78 kg/m2 2018-05-28 Blood pressure systolic 100 mmHg 2018-05-28 Blood pressure diastolic 60 mmHg 2018-05-28 MEDICATIONS Medication Instructions Dosage Frequency Start Date End Date Duration Status Eliquis 5 mg 1 tab(s) po bid Active Crestor 10 mg Orally Once a day 1 tablet 24h February, Active Voltaren 1 % Active Hydrocortisone 2.5 % Externally Twice a day 1 application to affected area 12h May, May, 14 days Active Montelukast Sodium 10 MG Orally Once a day 1 tablet in the evening 24h Active Metoprolol Succinate ER 25 MG TAKE 1 TABLET TWICE DAILY 90 Active Fluticasone Propionate 50 MCG/ACT USE 1 SPRAY IN EACH NOSTRIL TWICE DAILY 90 Active Glimepiride 4 MG TAKE 1 TABLET DAILY WITH BREAKFAST OR THE FIRST MAIN MEAL OF THE DAY 90 Active Tricor 145 MG Orally Once a day 1 tablet 24h Active Omeprazole 20 MG TAKE 1 CAPSULE EVERY DAY 90 Active Gabapentin 300 MG TAKE 1 CAPSULE TWICE DAILY 90 Active Fish Oil 1000 MG Orally Twice a day 1 capsule 12h Active Symbicort 160-4.5 MCG/ACT Inhalation Once a day 2 puffs 24h Active Magnesium Oxide 400 mg Orally Once a day 1 tablet 24h Nov,May 90 days Active Allopurinol 300 MG TAKE 1 TABLET TWICE DAILY 90 Active Fluoxetine HCl 20 MG TAKE 2 CAPSULES ONE TIME DAILY 90 Active Trulicity 0.75 MG/0.5ML Subcutaneous once weekly 0.5 ml Jul, Active Shingrix 50 mcg Intramuscular 1 IM today and repeat in 2-6 months as directed February, Active Albuterol Sulfate (2.5 MG/3ML) 0.083% Inhalation up to 6 times per day as needed for shortness of breath/wheezing 3 ml Jan, Active Lisinopril-Hydrochlorothiazide 10-12.5 MG TAKE 1 TABLET EVERY DAY 90 Active Aspirin 81 mg chew 1 tablet (81 mg) by oral route once daily Oct, Active Ventolin HFA 90 mcg/actuation inhale 2 puff by Inhalation route as needed every 6 hours PRN for cough or wheeze Mar, Active Potassium 99 MG Orally Once a day 1 tablet 24h Active Metformin HCl 500 mg Orally Twice a day 1 tablet with meals 12h Nov, Active Incruse Ellipta 62.5 MCG/INH Inhalation Once a day 1 puff 24h 07 Aug, 2016 Active Nebulizer/Adult Mask 1 by inhalation route as directed as directed Jan Active Meloxicam 7.5 MG Orally Once a day 1 tablet-take with food for pain 24h Jan, Active RESULTS No Results PROCEDURES Procedure Date Ordered Result Body Site GLYCATED HEMOGLOBIN TEST May 28, 2018 LAB NOT BILLED BY [facility] May 28, 2018 FQ VISIT ESTABLISHED PATIENT May 28, 2018 VENIPUNCT, ROUTINE* May 28, 2018 INSTRUCTIONS MEDICATIONS ADMINISTERED No Known Medications [...]
--- OUTSIDE RECORDS SUMMARY | 2018-12-17 08:07 | XMS REPORT ---
Author Author ABDIRAHMAN MARIBEL [facility] Address [address] [place] [address] Care Team Providers Care Outdoor Adventure Guides Name Role Phone MARIBEL GARY Unavailable PROBLEMS Type Condition ICD9-CM Code [id number] Code Onset Dates Condition Status SNOMED Code Problem Hypomagnesemia E83.42 Active 572857841 Problem Hyperlipidemia LDL goal <70 E78.5 Active 12592434 Problem Clostridium difficile diarrhea A04.7 Active 6263117065323 Problem Type 2 diabetes mellitus without complication, without long-term current use of insulin E11.9 Active 887002322 Problem Encounter for Zostavax administration Z23 Active 596652098 Problem Encounter for diabetic foot exam E11.9 Active 05555332 Problem Diabetes type 2, controlled E11.9 Active 37311363 Problem Arthritis, lumbar spine M47.9 Active 991776239 Problem Other obesity due to excess calories E66.09 Active 192711507 Problem Body mass index (BMI) of 30.0-30.9 in adult Z68.30 Active 323649925 Problem Contact dermatitis, unspecified contact dermatitis type, unspecified trigger L25.9 Active 20467448 Problem History of shingles Z86.19 Active 364445563861895 Problem Pure hypercholesterolemia E78.0 Active 163066072 Problem Hx of long-term use 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 Active 543087417 Problem High triglycerides E78.1 Active 786596935 Problem Essential hypertension with goal blood pressure less than 130\/80 I10 Active 57295406 Problem Uncontrolled type 2 diabetes mellitus without complication, without long-term current use of insulin E11.65 Active 897042731 Problem Leg cramps, sleep related G47.62 Active 13856846 Problem Controlled type 2 diabetes mellitus without complication, without long -term current use of insulin E11.9 Active 119741749 Problem COPD exacerbation J44.1 Active 940056173 Problem Hyperlipidemia LDL goal <70 E78.5 Active 87593659 Problem Recurrent pneumonia J18.9 Active 225756813 ALLERGIES No Information ENCOUNTERS Encounter Location Date Diagnosis [address] [id number] [id number] Jun, Type 2 diabetes mellitus without complication, without long-term current use of insulin E11.[address] [facility] [address] [facility] [address] [id number] [id number] May, Encounter for diabetic foot exam E11.9 [facility] [address] [id number][place] [address] May, [facility] [id number] [address] May, [facility] [address] [id number] 404[address] May, Diabetes type 2, controlled E11.9 and Contact dermatitis, unspecified contact dermatitis type, unspecified trigger L25.9 [facility] [address] [place] [address] AVE [id number] [address] Apr, [facility] [id number] [address] Mar, [facility] [address]005[address] [address] February, [facility] [address] [place] [address] AV [id number][place] [address] February, Diabetes type 2, controlled E11.9 ; Other obesity due to excess calories E66.09 ; Body mass index (BMI) of 30.0-30.9 in adult Z68.30 and History of shingles Z86.19 [facility] [address] [id number] [address] Jan, Uncontrolled type 2 diabetes mellitus without complication, without long-term current use of insulin E11.65 [facility] [address] [id number], [place] [address] Nov, Hypomagnesemia E83.42 and Uncontrolled type 2 diabetes mellitus without complication, without long-term current use of insulin E11.[address] [facility] [address] [id number] [place] [address] Nov, Uncontrolled type 2 diabetes mellitus without complication, without long-term current use of insulin E11.65 ; Hypomagnesemia E83.42 and Hyperlipidemia LDL goal <[address] [facility] [address] [id number][place] [address] Oct, [facility] [address] [facility] [id number] [place] [address] Sep, [facility] [address] [id number], [place] [address] Aug, [facility] [address] [id number][place] [address] Aug, Hypomagnesemia E83.[address] [facility] [address] [id number][place] [address]2070[address] Aug, Uncontrolled type 2 diabetes mellitus without complication, without long-term current use of insulin E11.65 and Hypomagnesemia E83.[address] [facility] [address] [id number], [place] [address] Aug, [facility] [address] [id number] [address] Jul, COPD exacerbation J44.[address] [facility] [address] [id number][place] [address] Jul, Clostridium difficile diarrhea A04.[address] [facility] [address] [id number], [place] [address] Jun, [facility] [address] [id number][place] [address]996[address] May, Clostridium difficile diarrhea A04.[address] [facility] [address] [id number], [place] 67607[address] May, Clostridium difficile diarrhea A04.[address] [facility] [address] [id number] [place] [address] May, Hypomagnesemia E83.[address] [facility] [address] [id number], [place] 714274600 May, Uncontrolled type 2 diabetes mellitus without complication, without long-term current use of insulin E11.65 ; Clostridium difficile diarrhea A04.7 and Hypomagnesemia E83.[address] [facility] [address] [id number], [place] [address] May, [facility] [address] [id number], [place] 271757[address] May, [facility] [address] [id number] [address]6839[address] Apr, Clostridium difficile diarrhea A04.7 and Hypomagnesemia E83.[address] [facility] [address] [id number], [place] [address] Apr, [facility] [address] [id number] [address]25110637 Apr, High triglycerides E78.[address] [facility] [address] [id number], [place] [address]3726707 February, Recurrent pneumonia J18.[address] [facility] [address] [id number][place] [address] February, Hypomagnesemia E83.42 [facility] [address] [facility] [id number], [place] 12293793[place] [address] February, [facility] [address] [id number][place] [address]23431592 February, COPD exacerbation J44.[address] [facility] [address] [id number], [place] [address]384[address] February, [facility] [address] [id number], [place] 8722239[address] Jan, Uncontrolled type 2 diabetes mellitus without complication, without long-term current use of insulin E11.65 and Arthritis, lumbar spine M47.[address] [facility] [address] [id number] [place] [address] Dec, [facility] [address] [id number] [place] [address] Dec, [facility] [address] [id number], [place] 225920888 Oct, [facility] [address] [id number], [place] 824013457 Oct, Uncontrolled type 2 diabetes mellitus without complication, without long-term current use of insulin E11.[address] [facility] [address] [id number], [place] 809244858 Sep, Uncontrolled type 2 diabetes mellitus without complication, without long-term current use of insulin E11.[address] [facility] [address] [id number], [place] 084258022 Aug, [facility] [address] [id number], [place] 447500656 Aug, [facility] [address] [facility] [id number][place]1835[address] Aug, [facility] [address] [id number], [place] 600045747 Jul, [facility] [address] [id number], [place] 210943595 Jul, Uncontrolled type 2 diabetes mellitus without complication, without long-term current use of insulin E11.65 ; Encounter for immunization Z23 and Leg cramps, sleep related G47.[address] [facility] [address] [id number] [place] [address] May, [facility] [address] [id number], [place] [id number] Apr, [facility] [address] [id number], [place] 680630678 Apr, Uncontrolled type 2 diabetes mellitus without complication, without long-term current use of insulin E11.65 and Hyperlipidemia LDL goal <70 E78.5 [facility] [address] [id number] [place] [id number] Mar, [facility] [address] [id number], [place] 417362223 Mar, [facility] [address] [id number], [place] 3467000[address] Mar, Obstructive chronic bronchitis with exacerbation J44.1 [facility] [address] [facility] [id number], [place] [address]37- [address] February, [facility] [address] [facility] [address] [id number], [place] [address]37237154 February, [facility] [address], [place] [address] February, [facility] [address] [id number], [place] 791769359 February, Controlled type 2 diabetes mellitus without complication, without long-term current use of insulin E11.9 [facility] [address] [facility] [id number][place] [address] February, [facility] [address] [facility] [address] [id number], [place] 811455445 Jan, Pneumonia of both lungs due to infectious organism, unspecified part of lung J18.9 ; Pure hypercholesterolemia E78.0 and Hx of long-term use 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 [facility] [address] [id number], [place] 602640300 Jan, [facility] [address] [facility] [id number], [place] [address] Jan, [facility] [address] [id number], [place] 971182252 Dec, Arthritis, lumbar spine M47.9 ; Essential hypertension with goal blood pressure less than 130\/80 I10 and Pneumonia of left lower lobe due to infectious organism J18.[address] [facility] [address] [id number], [place] 776907005 Dec, [facility] [address] [id number], [place] 707718730 Nov, Arthritis, lumbar spine M47.9 [facility] [address] [id number] [address] 47[address] Nov, [facility] [address], [place] [address] Oct, [facility] [address] [id number], [place] 541354816 Oct, High triglycerides E78.1 [facility] [address] [id number], [place] 696519044 Oct, Diabetes type 2, controlled E11.9 ; Arthritis, lumbar spine M47.9 and Encounter for Zostavax administration Z23 [facility] [address]65[address], [place] [address] Sep, [facility] [address]67[place]- [address] Aug, [facility] [address]- [address] Aug, [facility] [address] [id number], [place] [id number] Jul, [facility] [address] [id number], [place] 412130431 Jul, Encounter for immunization Z23 [facility] [address] [facility] [id number], [place] [address]- [address] Jun, [facility] [address] [id number], [place] [id number] Jun, [facility] [address] [id number], [place] 769910408 Jun, Diabetes 250.00 ; Interstitial pulmonary disease 515 and DJD ( degenerative joint disease), lumbosacral 722.[address] [facility] [address] [id number], [place] 413976970 Apr, J[facility] [address] [facility] [id number][place] [id number] Apr, [facility] [address] [id number], [place] 612880060 Mar, DJD (degenerative joint disease), lumbosacral 722.52 and Lumbago 724.[address] [facility] [address] [id number], [place] 971198510 February, Lumbago 724.2 and Abnormal x-ray of thoracic spine 793.[address] [facility] [address] [id number], [place] 738624010 February, Gout of knee 274.00 ; Lumbago with sciatica 724.3 and Interstitial pulmonary disease [address] [facility] [address] [id number], [place] 866007517 February, [facility] [address], [place] [address]- 6[address] Jan, [facility] [address]100[place], [place] [address]- 9023 Jan, [facility] [address]100[place], [place] [address]- 3894 Dec, [facility] [address], [place] 35771881- [address] Dec, [facility] [address]65100[place], [place] [address]- 4610 Dec, [facility] [id number] [place] [address]- 6822 Dec, [facility] [place] [facility] [address], [place]- 2074 Nov, [facility] [address] [id number] [address]- 7989 Nov, 2014 [facility] [place] [facility] [address] [id number] [place] [address]- 2008 Nov, 2014 [facility] [place] [facility] [address] [id number] [place] [address] 2546 18 Nov, 2014 [facility] [place] [facility] [address] [id number] [place] [address]- 9766 Nov, 2014 [facility] [place] [facility] [address] [id number] [place] [address]- 2543 Nov, 2014 [facility] [place] [facility] [address] [id number] [place] [address]- 0186 Nov, 2014 [facility] [place] [facility] [address] [facility] [id number] [place] [address]- 7141 Nov, 2014 [facility] [place] [facility] [address] [facility] [id number] [place] [address]- 6039 12 Nov, 2014 [facility] [place] [facility] [address] [id number] [place] [address]- 6807 Nov, 2014 [facility] [place] [facility] [address] [facility] [id number] [place] [address]- 2051 Nov, 2014 [facility] [place] [facility] [address] [facility] [id number] [place] [address]- 9419 Nov, [facility] [place] [facility] [address] [facility] [id number] [place] [address]- 2545 Nov, [facility] [place] [facility] [address] [facility] [id number] [place] [address]- 1188 Oct, [facility] [place] [facility] [address] [id number] [place] [address]- 4704 Oct, [facility] [place] [facility] [address] [facility] [id number] [place] [address]- 6768 Oct, [facility] [place] [facility] [address] [facility] [id number], [place] [address]- 5338 Oct, [facility] [place] [facility] [address] [id number] [place] [address]- 9742 Oct, [facility] [place] [facility] [address] [id number] [place] [address]- 1716 Oct, [facility] [place] [facility] [address] [id number] [place] [address]- 3067 Oct, [facility] [place] [facility] [address] [id number] [place] [address]- 9981 Oct, [facility] [place] [facility] [address] [id number] [place] [address]- 4864 Sep, [facility] [place] [facility] [address] [id number] [place] [address]- 7682 Sep, [facility] [place] [facility] [address] [id number] [place] [address]- 0923 Aug, [facility] [place] [facility] [address] [id number] [place] [address]- 4701 Aug, [facility] [place] [facility] [address] [id number] [place] [address]- 9894 Aug, [facility] [place] [facility] [address] [id number] [place] [address]- 2737 Aug, [facility] [place] [facility] [address] [id number], [place] [address]- 9896 Jul, [facility] [place] [facility] [address] [id number], [place] [address]- 9072 Jul, [facility] [place] [facility] [address] [id number] [place] [address]- 8102 29 Jun, 2014 [facility] [place] [facility] [address] [id number] [place] [address]- 5511 29 Jun, 2014 [facility] [place] [facility] [address] [id number] [place] [address]- 6371 16 Jun, 2014 [facility] [place] [facility] [address] [id number] [place] [address]- 0015 16 Jun, 2013 [facility] [place] [facility] [address] [id number] [place] [address]- 8306 11 Jun, 2013 [facility] [place] [facility] [address] [id number] [place] [address]- 6826 11 Jun, 2013 [facility] [place] [facility] [address] [id number] [place] [address]- 7116 04 Jun, 2013 [facility] [place] [facility] [address] [id number] [place] [address]- 3541 04 Jun, 2013 [facility] [place] [facility] [address] [id number] [place] [address]- 5314 03 Jun, 2013 [facility] [place] [facility] [address] [id number] [place] [address]- 1717 02 Jun, 2013 [facility] [place] [facility] [address] [id number] [place] [address]- 6787 Jun, 2013 [facility] [place] [facility] [address] [id number] [place] [address]- 2065 May, [facility] [place] [facility] [address] [id number] [place] [address]- 1126 May, [facility] [place] [facility] [address] [id number] [place] [address]- 8322 Apr, [facility] [place] [facility] [address] [id number] [place] [address]- 7488 Apr, [facility] [place] [facility] [address] [id number] [place] [address]- 2985 Apr, [facility] [place] [facility] [address] [id number] [place] [address]- 7815 Apr, [facility] [place] [facility] [address] [id number] [place] [address]- 5163 Apr, [facility] [place] [facility] [address] [id number] [place] [address]- 3655 Apr, [facility] [place] [facility] [address] [id number] [place] [address]- 4170 Apr, [facility] [place] [facility] [address] [id number] [place] [address]- 6808 Apr, [facility] [place] [facility] [address] [id number] [place] [address]- 1652 Apr, [facility] [place] [facility] [address] [id number] [place] [address]- 0113 Apr, [facility] [place] [facility] [address] [id number] [place] [address]- 0974 Mar, [facility] [place] [facility] [address] [id number] [place] [address]- 6184 Mar, [facility] [place] [facility] [address] [id number] [place] [address]- 2747 Mar, [facility] [place] [facility] [address] [id number] [place] [address]- 7174 Mar, [facility] [place] [facility] [address] [id number] [place] [address]- 7080 Mar, [facility] [place] [facility] [address] [id number] [place] [address]- 8684 Mar, [facility] [place] [facility] [address] [id number] [place] [address]- 4198 Mar, [facility] [place] [facility] [address] [id number] [place] [address]- 0681 Mar, [facility] [place] [facility] [address] [id number] [place] [address]- 2953 Mar, [facility] [place] [facility] [address] [id number] [place] [address]- 7149 Mar, [facility] [place] [facility] [address] [id number] [place] [address]- 0801 Mar, [facility] [place] [facility] [address] [id number] [place] [address]- 6712 Mar, [facility] [place] [facility] [address] [id number] [place] [address]- 2316 Mar, [facility] [place] [facility] [address] [id number] [place] [address]- 7980 Mar, [facility] [place] [facility] [address] [id number] [place] [address]- 3361 Mar, [facility] [place] [facility] [address] [id number] [place] [address]- 7011 Mar, [facility] [place] [facility] [address] [id number] [place] [address]- 6518 February, [facility] [place] [facility] [address] [id number] [place] [address]- 8759 February, [facility] [place] [facility] [address] [id number] [place] [address]- 9539 Jan, [facility] [place] [facility] [address] [id number] [place] [address]- 4522 Jan, [facility] [place] [facility] [address] [id number] [place] [address]- 9273 Jan, [facility] [place] [facility] [address] [id number] [place] [address]- 7575 Jan, [facility] [place] [facility] [address] [id number] [place] [address]- 8855 Dec, [facility] [place] [facility] [address] [id number] [place] [address]- 4812 Dec, [facility] [place] [facility] [address] [id number] [place] [address]- 1668 Dec, [facility] [place] [facility] [address] [id number] [place] [address]- 5112 Dec, [facility] [place] [facility] [address] [id number] [place] [address]- 7271 Nov, [facility] [place] [facility] [address] [id number] [place] [address]- 7009 Nov, [facility] [address] [id number] [place] [address]- 0419 Oct, [facility] [place] [facility] [address] [id number] [place] [address]- 1980 Oct, [facility] [place] [facility] [address] [id number] [place] [address] Oct, [facility] [place] [facility] [address] [id number] [place] [address] Oct, [facility] [place] [facility] [address] [id number] [place] [address] Oct, [facility] [address] [id number] [place] [address] Oct, [facility] [address] [id number] [place] [address] Jun, [facility] [address] [id number] [place] [address] Jun, [facility] [address] [id number] [place] [address] Jun, [facility] [address] [id number] [id number] Jun, [facility] [place] [facility] [address] [id number] [place] [address] Apr, [facility] [place] [facility] [address] [id number] [place] [address] Apr, [facility] [place] [facility] [address] [id number] [place] [address] Apr, [facility] [place] [facility] [address] [id number] [place] [address] Apr, [facility] [place] [facility] [address] [id number] [place] [address] Mar, [facility] [address] [id number] [place] [address] Mar, [facility] [address] [id number] [place] [address] February, [facility] [address] [id number] [place] [address] Jan, [facility] [address] [id number] [place] [address] Jan, [facility] [address] [id number] [place] [address] Jan, [facility] [address] [id number] [place] [address] Dec, [facility] [address] [id number] [place] [address] Dec, [facility] [address] [id number] [place] [address] Dec, [facility] [address] [id number] [place] [address] Nov, [facility] [address] [id number] [place] [address] Nov, [facility] [address] [id number] [place] [address] Oct, [facility] [address] [id number] [place] [address] Oct, [facility] [place] [facility] [address] [id number] [place] [address] Oct, [facility] [place] [facility] [address] [id number] [place] [address] Sep, [facility] [place] [facility] [address] [id number] [place] [address] Sep, [facility] [address] [id number] [place] [address] Sep, [facility] [place] [facility] [address] [id number] [place] [address] Sep, [facility] [place] [facility] [address] [facility] [id number] [place] [address] Sep, [facility] [place] [facility] [address] [facility] [id number] [place] [address] Sep, [facility] [place] [facility] [address] [id number] [place] [address] Sep, [facility] [place] [facility] [address] [id number] [place] [address] Sep, [facility] [place] [facility] [address] [facility] [id number] [place] [address] Aug, [facility] [place] [facility] [address] [facility] [id number], [place] [address] Aug, [facility] [place] [facility] [address] [facility] [id number], [place] [address] Jul, [facility] [place] [facility] [address] [facility] [id number] [place] [address] Jul, [facility] [place] [facility] [address] [facility] [id number], [place] [address] Jul, [facility] [place] [facility] [address] [facility] [id number] [address] Jul, [facility] [place] [facility] [address] [facility] [id number], [place] [address] Jun, [facility] [place] [facility] [address] [id number], [place] [address] Jun, [facility] [address] [id number] [id number] Jun, [facility] [address] [facility] [id number] [id number] Jun, [facility] [place] [facility] [address] [id number] [place] [address] 11 Jun, 2012 [facility] [place] [facility] [address] [id number] [place] [address] 10 Jun, 2012 [facility] [place] [facility] [address] [id number] [place] [address] 08 Jun, 2012 [facility] [place] [facility] [address] [id number] [place] [address] 05 Jun, 2012 [facility] [place] [facility] [address] [id number] [place] [address] May, [facility] [place] [facility] [address] [id number] [place] [address] May, [facility] [place] [facility] [address] [id number] [place] [address] May, [facility] [place] [facility] [address] [id number] [place] [address] May, [facility] [place] [facility] [address] [id number] [place] [address] May, [facility] [place] [facility] [address] [id number] [place] [address] May, [facility] [place] [facility] [address] [facility] [id number] [place] [id number] May, [facility] [place] [facility] [address] [id number] [place] [address] Apr, [facility] [place] [facility] [address] [facility] [id number] [place] [id number] Apr, [facility] [place] [facility] [address] [id number] [place] [address] Apr, [facility] [place] [facility] [address] [id number] [place] [address] Apr, [facility] [place] [facility] [address] [id number] [place] [address] Apr, [facility] [place] [facility] [address] [id number] [place] [address] Apr, [facility] [place] [facility] [address] [id number] [place] [address] Apr, [facility] [place] [facility] [address] [id number] [place] [address] Apr, [facility] [place] [facility] [address] [id number] [place] [address] Apr, [facility] [place] [facility] [address] [id number] [place] [address] Apr, [facility] [place] [facility] [address] [id number] [place] [address] Mar, [facility] [place] [facility] [address] [id number] [place] [address] February, [facility] [place] [facility] [address] [id number] [place] [address] Jan, [facility] [place] [facility] [address] [id number] [place] [address] Dec, [facility] [place] [facility] [address] [id number] [place] [address] Dec, [facility] [place] [facility] [address] [facility] [id number] [place] [id number] Nov, [facility] [place] [facility] [address] [id number] [place] [address] Nov, [facility] [place] [facility] [address] [id number] [place] [address] Nov, [facility] [place] [facility] [address] [id number] [place] [address] Nov, [facility] [place] [facility] [address] [id number] [place] [address] Nov, [facility] [place] [facility] [address] [id number], [place] [address] Nov, [facility] [address] [facility] [id number], [place] [address] Nov, [facility] [address] [facility] [id number][place] [id number] Oct, [facility] [address] [facility] [id number], [place] [address] Oct, [facility] [address] [facility] [id number], [place] [address] Oct, [facility] [address] [facility] [id number], [place] [address] Oct, [facility] [address] [facility] [id number], [place] [address] Oct, [facility] [id number], [place] [address] Oct, [facility] [id number], [place] [address] Sep, [facility] [id number], [place] [address] Aug, [facility] [id number], [place] [address] Jul, [facility] [address] [id number], [place] [address] Jul, [facility] [address] [id number], [place] [address] Jul, [facility] [address] [id number], [place] [address] Jul, [facility] [address] [id number], [place] [address] Jul, IMMUNIZATIONS No Known Immunizations SOCIAL HISTORY Never Assessed REASON FOR VISIT Medication Dosage PLAN OF CARE VITAL SIGNS MEDICATIONS Medication Instructions Dosage Frequency Start Date End Date Duration Status Crestor 20 MG Orally Once a day 1 tablet 24h February, Active RESULTS No Results PROCEDURES No Known [...]
--- OUTSIDE RECORDS SUMMARY | 2018-12-17 08:07 | XMS REPORT ---
Author Author PHYLLISJACKIE MARIBEL [facility] Address [address] [place] [address] Care Team Providers Care Expander Machine Operator Name Role Phone MARIBEL GARY Unavailable PROBLEMS Type Condition ICD9-CM Code KVI73-CK Code Onset Dates Condition Status SNOMED Code Problem Recurrent pneumonia J18.9 Active 255548010 Problem Clostridium difficile diarrhea A04.7 Active 8461321339353 Problem Hypomagnesemia E83.42 Active 104482803 Problem Encounter for diabetic foot exam E11.9 Active 31236113 Problem Diabetes type 2, controlled E11.9 Active 92415963 Problem Contact dermatitis, unspecified contact dermatitis type, unspecified trigger L25.9 Active 99397640 Problem Arthritis, lumbar spine M47.9 Active 513399108 Problem Body mass index (BMI) of 30.0-30.9 in adult Z68.30 Active 733973511 Problem Hyperlipidemia LDL goal <70 E78.5 Active 27741262 Problem History of shingles Z86.19 Active 157728884429400 Problem Other obesity due to excess calories E66.09 Active 710922552 Problem Essential hypertension with goal blood pressure less than 130\/80 I10 Active 94732033 Problem Pure hypercholesterolemia E78.0 Active 718757883 Problem Encounter for Zostavax administration Z23 Active 650917766 Problem High triglycerides E78.1 Active 478722063 Problem Hyperlipidemia LDL goal <70 E78.5 Active 36491562 Problem Uncontrolled type 2 diabetes mellitus without complication, without long-term current use of insulin E11.65 Active 637790446 Problem Hx of intermediate use 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 Active 572110786 Problem Leg cramps, sleep related G47.62 Active 47431274 Problem Controlled type 2 diabetes mellitus without complication, without long -term current use of insulin E11.9 Active 526491108 Problem COPD exacerbation J44.1 Active 482737166 ALLERGIES No Information ENCOUNTERS Encounter Location Date Diagnosis [address] [id number] [place] [id number] May, Encounter for diabetic foot exam E11.[address] [id number] [place] [id number] May, [address] [facility] [address] [id number] [place] [id number] May, [address] [id number] [place] [address] May, Diabetes type 2, controlled E11.9 and Contact dermatitis, unspecified contact dermatitis type, unspecified trigger L25.9 [facility] [address] [id number] [place] [id number] Apr, [facility] [place] [address] [facility] [id number] [id number] Mar, [facility] [address] [address] February, [facility] [address] [id number] [place] [id number] February, Diabetes type 2, controlled E11.9 ; Other obesity due to excess calories E66.09 ; Body mass index (BMI) of 30.0-30.9 in adult Z68.30 and History of shingles Z86.[address] [id number] [place] [id number] Jan, Uncontrolled type 2 diabetes mellitus without complication, without long-term current use of insulin E11.65 [facility] [id number] [place] [address] Nov, Hypomagnesemia E83.42 and Uncontrolled type 2 diabetes mellitus without complication, without long-term current use of insulin E11.65 [facility] [address] [id number] [place] [address] Nov, Uncontrolled type 2 diabetes mellitus without complication, without long-term current use of insulin E11.65 ; Hypomagnesemia E83.42 and Hyperlipidemia LDL goal <[address] [facility] [address] [id number] [place] [id number] Oct, [facility] [address] [facility] [id number] [place] [address] Sep, [facility] [address] [id number] [place] [id number] Aug, [facility] [address] [id number] [place] [address] Aug, Hypomagnesemia E83.[address] [facility] [address] [id number] [place] [id number] Aug, Uncontrolled type 2 diabetes mellitus without complication, without long-term current use of insulin E11.65 and Hypomagnesemia E83.[address] [facility] [address] [id number] [place] [address] Aug, [facility] [address] [id number] [place] [address] Jul, COPD exacerbation J44.[address] [facility] [address] [id number] [place] [address] Jul, Clostridium difficile diarrhea A04.[address] [facility] [address] [id number] [place] [id number] Jun, [facility] [address] [id number] [place] [id number] May, Clostridium difficile diarrhea A04.[address] [facility] [address] [id number] [place] [address]57[address] May, Clostridium difficile diarrhea A04.[address] [facility] [address] [id number] [place] [address] May, Hypomagnesemia E83.[address] [facility] [address] [id number] [place] [address] May, Uncontrolled type 2 diabetes mellitus without complication, without long-term current use of insulin E11.65 ; Clostridium difficile diarrhea A04.7 and Hypomagnesemia E83.[address] [facility] [address] [id number] [place] [id number] May, [facility] [address] [id number] [place] [id number] May, [facility] [address] [id number] [place] [id number] Apr, Clostridium difficile diarrhea A04.7 and Hypomagnesemia E83.[address] [facility] [address] [id number] [place] [address] Apr, [facility] [address] [id number] [place] [address] Apr, High triglycerides E78.[address] [facility] [address] [id number] [place] [address] February, Recurrent pneumonia J18.[address] [facility] [address] [id number] [place] [address] February, Hypomagnesemia E83.42 [facility] [address] [facility] [id number] [address] February, [facility] [address] [id number] [place] [address] February, COPD exacerbation J44.[address] [facility] [address] [id number] [place] [id number] February, [facility] [address] [id number] [place] [address] Jan, Uncontrolled type 2 diabetes mellitus without complication, without long-term current use of insulin E11.65 and Arthritis, lumbar spine M47.[address] [facility] [address] [id number] [place] [id number] Dec, [facility] [address] [id number] [place] [id number] Dec, [facility] [address] [id number] [place] [id number] Oct, [facility] [address] [id number] [place] [address] Oct, Uncontrolled type 2 diabetes mellitus without complication, without long-term current use of insulin E11.[address] [facility] [address] [id number] [place] [address] Sep, Uncontrolled type 2 diabetes mellitus without complication, without long-term current use of insulin E11.[address] [facility] [address] [id number] [place] [address] Aug, [facility] [address] [id number] [place] [address] Aug, [facility] [address] [facility] [id number] [place] [address] Aug, [facility] [address] [id number] [place] [id number] Jul, [facility] [address] [id number] [place] [id number] Jul, Uncontrolled type 2 diabetes mellitus without complication, without long-term current use of insulin E11.65 ; Encounter for immunization Z23 and Leg cramps, sleep related G47.[address] [facility] [address] [id number] [place] [id number] May, [facility] [address] [id number] [place] 364[address] Apr, [facility] [address] [id number] [place] [id number] Apr, Uncontrolled type 2 diabetes mellitus without complication, without long-term current use of insulin E11.65 and Hyperlipidemia LDL goal <70 E78.[address] [facility] [address] [id number] [place] [id number] Mar, [facility] [address] [id number] [place] [id number] Mar, [facility] [address] [id number] [place] [id number] Mar, Obstructive chronic bronchitis with exacerbation J44.1 [facility] [address] [address] February, [facility] [address] [place] [address] AVE [id number] [place] [id number] February, [place] [address], [place] [address] February, [address] [id number] [place] [address]158[address] February, Controlled type 2 diabetes mellitus without complication, without long-term current use of insulin E11.9 [facility] [place] [address] [address] February, [address] [id number] [place] [id number] Jan, Pneumonia of both lungs due to infectious organism, unspecified part of lung J18.9 ; Pure hypercholesterolemia E78.0 and Hx of intermediate use 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 [facility] [address] [id number] [place] 39586[address] Jan, [facility] [place] [address] [id number] [address] Jan, [facility] [address] [id number] [place] [id number] Dec, Arthritis, lumbar spine M47.9 ; Essential hypertension with goal blood pressure less than 130\/80 I10 and Pneumonia of left lower lobe due to infectious organism J18.9 [facility] [address] [id number] [place] [id number] Dec, [facility] [address] [id number] [place] [id number] Nov, Arthritis, lumbar spine M47.9 [facility] [place] [address] [address] 04 Nov, 2015 [facility] [address] [address] Oct, [facility] [address] [id number] [place] [id number] Oct, High triglycerides E78.1 [facility] [address] [id number] [place] [id number] 14 Oct, 2015 Diabetes type 2, controlled E11.9 ; Arthritis, lumbar spine M47.9 and Encounter for Zostavax administration Z23 [facility] [place] [address] [id number] [place] [address] Sep, [facility] [address] [place] [address] 709855- 2956 Aug, [facility] [address] [place] [address] 245964- 8126 Aug, [facility] [address] [id number] [place] 990945441 Jul, [facility] [address] [id number] [place] 989317194 Jul, Encounter for immunization Z23 [facility] [address], [place] [address] Jun, [facility] [address] [id number] [place] [id number] Jun, [facility] [address] [id number] [place] 035104693 Jun, Diabetes 250.00 ; Interstitial pulmonary disease 515 and DJD ( degenerative joint disease), lumbosacral 722.[address] [facility] [address] [id number] [place] 9286[address]187 Apr, marcelozUSHA JEFFRIES [address] [facility] [id number] [place] [id number] Apr, [facility] [address] [id number] [place] 507877681 Mar, DJD (degenerative joint disease), lumbosacral 722.52 and Lumbago 724.2 [facility] [address] [id number] [place] [id number] February, Lumbago 724.2 and Abnormal x-ray of thoracic spine 793.7 [facility] [address] [id number] [place] 37424[address] February, Gout of knee 274.00 ; Lumbago with sciatica 724.3 and Interstitial pulmonary disease 515 [facility] [address] [facility] [address] [id number] [place] 757016497 February, [facility] [id number] [place] [address]- 2687 Jan, [facility] [id number] [place] [address] 009588- 8280 Jan, [facility] [id number] [place] [address] 986801- 1470 Dec, [facility] [id number] [place] [address] 35647- 8612 Dec, [facility] [id number] [place] [address] 417250- 6069 Dec, [facility] [id number] [place] [address] 484583- 2100 Dec, [facility] [id number] [place] [address] 987426- 4534 Nov, [facility] [id number] [place] [address] 036474- 7808 Nov, [facility] [id number] [place] [address] 15036- 2806 Nov, [facility] [id number] [place] [address] 32588- 9800 18 Nov, 2014 [facility] [place] [facility] [address] [id number] [place] [address]- [address] Nov, 2014 [facility] [place] [facility] [address] [id number] [place] [address]- 3326 17 Nov, 2014 [facility] [place] [facility] [address] [id number] [place] [address]- 1236 Nov, 2014 [facility] [place] [facility] [address] [id number] [place] [address]- 0795 Nov, 2014 [facility] [place] [facility] [address] [id number] [place] [address]- 0585 Nov, 2014 [facility] [place] [facility] [address] [id number] [place] [address]- 3352 Nov, 2014 [facility] [place] [facility] [address] [id number] [place] [address]- 0883 Nov, 2014 [facility] [place] [facility] [address] [id number] [place] [address]- 7780 Nov, [facility] [place] [facility] [address] [id number] [place] [address]- 6067 Nov, [facility] [place] [facility] [address] [facility] [id number] [place] [address]- 7219 Oct, [facility] [place] [facility] [address] [id number] [place] [address] 2542 Oct, [facility] [place] [facility] [address] [id number] [place] [address]- 1177 Oct, [facility] [place] [facility] [address] [id number] [place] [address]- 2266 Oct, [facility] [place] [facility] [address] [id number] [place] [address]- 4646 Oct, [facility] [place] [facility] [address] [id number] [place] [address]- 8755 Oct, [facility] [place] [facility] [address] [id number] [place] [address]- 5670 13 Oct, 2014 [facility] [place] [facility] [address] [id number] [place] [address]- 0236 Oct, [facility] [place] [facility] [address] [id number] [place] [address]- 3132 Sep, [facility] [place] [facility] [address] [id number] [place] [address]- 8254 Sep, [facility] [place] [facility] [address] [id number] [place] [address]- 6100 Aug, [facility] [place] [facility] [address] [id number] [place] [address]- 6893 Aug, [facility] [place] [facility] [address] [id number] [place] [address]- 1471 Aug, [facility] [place] [facility] [address] [id number] [place] [address]- 6978 Aug, [facility] [place] [facility] [address] [id number] [place] [address]- 6757 Jul, [facility] [place] [facility] [address] [id number] [place] [address]- 7866 Jul, [facility] [place] [facility] [address] [id number] [place] [address]- 6112 29 Jun, 2014 [facility] [place] [facility] [address] [id number] [address]- 9579 29 Jun, 2014 [facility] [place] [facility] [address] [id number] [place] [address]- 1367 16 Jun, 2014 [facility] [place] [facility] [address] [id number] [place] [address]- 4513 16 Jun, 2014 [facility] [place] [facility] [address] [id number] [place] [address]- 2806 11 Jun, 2014 [facility] [place] [facility] [address] [id number][place] [address]- 2992 11 Jun, 2014 [facility] [place] [facility] [address] [id number] [place] [address]- 8857 Jun, [facility] [place] [facility] [address] [id number] [place] [address]- 9559 Jun, [facility] [place] [facility] [address] [id number] [place] [address]- 7048 Jun, [facility] [place] [facility] [address] [id number] [place] [address]- 4086 Jun, [facility] [place] [facility] [address] [id number] [place] [address]- 2967 Jun, [facility] [place] [facility] [address] [id number] [place] [address]- 8663 May, [facility] [place] [facility] [address] [id number] [place] [address]- 5728 May, [facility] [place] [facility] [address] [id number] [place] [address]- 7994 Apr, [facility] [place] [facility] [address] [id number] [place] [address]- 4623 Apr, [facility] [place] [facility] [address] [id number] [place] [address]- 6499 Apr, [facility] [place] [facility] [address] [id number] [place] [address]- 8951 Apr, [facility] [place] [facility] [address] [id number] [place] [address]- 1628 Apr, [facility] [place] [facility] [address] [id number] [place] [address]- 8082 Apr, [facility] [place] [facility] [address] [id number] [place] [address]- 7166 Apr, [facility] [place] [facility] [address] [id number] [place] [address]- 3172 Apr, [facility] [place] [facility] [address] [id number] [place] [address]- 9280 Apr, [facility] [place] [facility] [address] [id number] [place] [address]- 4619 Apr, [facility] [place] [facility] [address] [id number] [place] [address]- 7960 Mar, [facility] [place] [facility] [address] [id number] [place] [address]- 1952 Mar, [facility] [place] [facility] [address] [id number] [place] [address]- 3992 Mar, [facility] [place] [facility] [address] [id number] [place] [address]- 9211 Mar, [facility] [place] [facility] [address] [id number] [place] [address]- 5554 Mar, [facility] [place] [facility] [address] [id number] [place] [address]- 7871 Mar, [facility] [place] [facility] [address] [id number] [place] [address]- 1285 Mar, [facility] [place] [facility] [address] [id number] [place] [address]- 5638 Mar, [facility] [place] [facility] [address] [id number] [place] [address]- 7022 Mar, [facility] [place] [facility] [address] [id number] [place] [address]- 4564 Mar, [facility] [place] [facility] [address] [id number] [place] [address]- 0070 Mar, [facility] [place] [facility] [address] [id number] [place] [address]- 0504 Mar, [facility] [place] [facility] [address] [id number] [place] [address]- 8398 Mar, [facility] [place] [facility] [address] [id number] [place] [address]- 1261 Mar, [facility] [place] [facility] [address] [id number] [place] [address]- 6237 Mar, [facility] [place] [facility] [address] [id number] [place] [address]- 1594 Mar, [facility] [place] [facility] [address] [id number] [place] [address]- 0953 February, [facility] [place] [facility] [address] [id number] [place] [address]- 6649 February, [facility] [place] [facility] [address] [id number] [place] [address]- 0945 Jan, [facility] [place] [facility] [address] [id number] [place] [address]- 6264 Jan, [facility] [place] [facility] [address] [id number] [place] [address]- 1379 Jan, [facility] [place] [facility] [address] [id number] [place] [address]- 0818 Jan, [facility] [place] [facility] [address] [id number] [place] [address]- 4785 Dec, [facility] [place] [facility] [address] [id number] [place] [address]- 0719 Dec, [facility] [place] [facility] [address] [id number] [place] [address]- 6552 Dec, [facility] [place] [facility] [address] [id number] [place] [address]- 9769 Dec, [facility] [place] [facility] [address] [id number] [place] [address]- 0098 Nov, [facility] [place] [facility] [address] [id number] [place] [address]- 4073 Nov, [facility] [place] [facility] [address] [id number] [place] [address]- 2328 Oct, [facility] [place] [facility] [address] [id number] [place] [address]- 5925 Oct, [facility] [address] [id number] [place] [address]- 7694 Oct, [facility] [place] [facility] [address] [id number] [place] [address]- 2119 Oct, [facility] [address] [id number] [place] [address]- 9971 Oct, [facility] [place] [facility] [address] [id number] [place] [address]- 8475 Oct, [facility] [address] [id number] [place] [address] Jun, [facility] [place] [facility] [address] [id number] [place] [address] Jun, [facility] [address] [id number] [place] [address] Jun, [facility] [address] [id number] [id number] Jun, [facility] [address] [id number] [place] [address] Apr, [facility] [place] [facility] [address] [id number] [place] [address] Apr, [facility] [place] [facility] [address] [id number] [place] [address] Apr, [facility] [place] [facility] [address] [id number] [place] [address] Apr, [facility] [place] [facility] [address] [id number] [place] [address] Mar, [facility] [place] [facility] [address] [id number] [place] [address] Mar, [facility] [place] [facility] [address] [id number] [place] [address] February, [facility] [place] [facility] [address] [id number] [place] [address] Jan, [facility] [address] [id number] [place] [address] Jan, [facility] [place] [facility] [address] [id number] [place] [address] Jan, [facility] [address] [id number] [place] [address] 30 Dec, 2012 [facility] [place] [facility] [address] [id number] [place] [address] Dec, [facility] [place] [facility] [address] [id number] [place] [address] Dec, [facility] [place] [facility] [address] [id number] [place] [address] Nov, [facility] [place] [facility] [address] [id number] [place] [address] Nov, [facility] [address] [id number] [place] [address] Oct, [facility] [address] [id number] [place] [address] Oct, [facility] [address] [id number] [place] [address] Oct, [facility] [address] [id number] [place] [address] Sep, [facility] [place] [facility] [address] [id number] [place] [address] Sep, [facility] [place] [facility] [address] [id number] [place] [address] Sep, [facility] [place] [facility] [address] [id number] [place] [address] 10 Sep, 2012 [facility] [place] [facility] [address] [id number] [place] [address] Sep, [facility] [place] [facility] [address] [facility] [id number], [place] [address] Sep, [facility] [place] [facility] [address] [id number], [place] [address] Sep, [facility] [place] [facility] [address] [facility] [id number], [place] [address] Sep, [facility] [place] [facility] [address] [facility] [id number], [place] [address] Aug, [facility] [place] [facility] [address] [facility] [id number], [place] [address] Aug, [facility] [place] [facility] [address] [facility] [id number], [place] [address] Jul, [facility] [place] [facility] [address] [facility] [facility] [id number], [place] [address] Jul, [facility] [place] [facility] [address] [facility] [place] [id number], [place] [address] Jul, [facility] [place] [facility] [address] [facility] [place] [id number], [place] [address] Jul, [facility] [place] [facility] [address] [facility] [id number], [place] [address] Jun, [facility] [place] [facility] [address] [facility] [id number], [place] [address] 13 Jun, 2012 [facility] [address] [id number] [id number] 13 Jun, 2012 [facility] [address] [facility] [id number] [id number] 13 Jun, 2012 [facility] [place] [facility] [address] [facility] [id number], [place] [address] 11 Jun, 2012 [facility] [place] [facility] [address] [facility] [id number], [place] [address] 10 Jun, 2012 [facility] [place] [facility] [address] [facility] [place] [id number], [place] [address] Jun, [facility] [place] [facility] [address] [id number] [place] [address] Jun, [facility] [place] [facility] [address] [id number] [place] [address] May, [facility] [place] [facility] [address] [id number] [place] [address] May, [facility] [place] [facility] [address] [id number] [place] [address] May, [facility] [place] [facility] [address] [id number] [place] [address] May, [facility] [place] [facility] [address] [id number] [place] [address] May, [facility] [place] [facility] [address] [id number] [place] [address] May, [facility] [place] [facility] [address] [facility] [id number] [place] [id number] May, [facility] [place] [facility] [address] [id number] [place] [address] Apr, [facility] [place] [facility] [address] [facility] [id number] [place] [id number] Apr, [facility] [place] [facility] [address] [id number] [place] [address] Apr, [facility] [place] [facility] [address] [id number], [place] [address] Apr, [facility] [place] [facility] [address] [id number] [place] [address] Apr, [facility] [place] [facility] [address] [id number] [place] [address] Apr, [facility] [place] [facility] [address] [id number] [place] [address] Apr, [facility] [place] [facility] [address] [id number] [place] [address] Apr, [facility] [place] [facility] [address] [id number] [place] [address] Apr, [facility] [place] [facility] [address] [id number] [place] [address] Apr, [facility] [place] [facility] [address] [id number] [place] [address] Mar, [facility] [place] [facility] [address] [id number] [place] [address] February, [facility] [place] [facility] [address] [id number] [place] [address] Jan, [facility] [place] [facility] [address] [id number] [place] [address] Dec, [facility] [place] [facility] [address] [id number] [place] [address] Dec, [facility] [place] [facility] [id number] [id number] Nov, [facility] [place] [facility] [id number] [place] [address] Nov, [facility] [place] [facility] [address] [facility] [place] [id number] [place] [address] Nov, [facility] [place] [facility] [address] [id number] [place] [address] Nov, [facility] [place] [facility] [address] [facility] [place] [id number] [place] [address] 254 Nov, [facility] [place] [facility] [address] [id number] [place] [address] Nov, [facility] [place] [facility] [address] [facility] [place] [id number] [place] [address] Nov, [facility] [place] [facility] [address] [id number] [place] [id number] Oct, [facility] [address] [id number], [place] [address] Oct, [facility] [id number], [place] [address] Oct, [facility] [id number], [place] [address] Oct, [facility] [id number], [place] [address] Oct, [facility] [id number], [place] [address] Oct, [facility] [id number] [address] [address] Sep, [facility] [id number], [place] [address] Aug, [facility] [id number], [place] [address] Jul, [facility] [id number], [place] [address] Jul, [facility] [address] [id number], [place] [address] Jul, [facility] [address] [id number], [place] [address] Jul, [facility] [address] [id number], [place] [address] Jul, IMMUNIZATIONS No Known Immunizations SOCIAL HISTORY Never Assessed REASON FOR VISIT Repository Medication/samples PLAN OF CARE VITAL SIGNS MEDICATIONS No Known Medications RESULTS No Results PROCEDURES No Known [...]
--- OUTSIDE RECORDS SUMMARY | 2018-12-17 08:08 | XMS REPORT ---
Author Author PHYLLISJACKIE [facility] Address [address] [place] [address] Care Team Providers Care Extension Agent Name Role Phone MARIBEL GARY Unavailable PROBLEMS Type Condition ICD9-CM Code KOD59-GA Code Onset Dates Condition Status SNOMED Code Problem Recurrent pneumonia J18.9 Active 884967173 Problem Clostridium difficile diarrhea A04.7 Active 7280828846695 Problem Hypomagnesemia E83.42 Active 881642689 Problem Encounter for diabetic foot exam E11.9 Active 84502787 Problem Diabetes type 2, controlled E11.9 Active 72083513 Problem Contact dermatitis, unspecified contact dermatitis type, unspecified trigger L25.9 Active 66534787 Problem Arthritis, lumbar spine M47.9 Active 842499199 Problem Body mass index (BMI) of 30.0-30.9 in adult Z68.30 Active 856768066 Problem Hyperlipidemia LDL goal <70 E78.5 Active 23645335 Problem History of shingles Z86.19 Active 840685517848639 Problem Other obesity due to excess calories E66.09 Active 564901435 Problem Essential hypertension with goal blood pressure less than 130\/80 I10 Active 61044171 Problem Pure hypercholesterolemia E78.0 Active 203237812 Problem Encounter for Zostavax administration Z23 Active 942351804 Problem High triglycerides E78.1 Active 359419107 Problem Hyperlipidemia LDL goal <70 E78.5 Active 98364811 Problem Uncontrolled type 2 diabetes mellitus without complication, without long-term current use of insulin E11.65 Active 288439226 Problem Hx of longterm use 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 Active 589669043 Problem Leg cramps, sleep related G47.62 Active 76133580 Problem Controlled type 2 diabetes mellitus without complication, without long -term current use of insulin E11.9 Active 022626299 Problem COPD exacerbation J44.1 Active 889588946 ALLERGIES No Information ENCOUNTERS Encounter Location Date Diagnosis [address] [id number] [id number] May, Encounter for diabetic foot exam E11.[address] [id number][place] [id number] May, [address] [facility] [address] [id number][place] [id number] May, [address] [id number][place] [id number] May, Diabetes type 2, controlled E11.9 and Contact dermatitis, unspecified contact dermatitis type, unspecified trigger L25.9 [facility] [address] [id number][place] [id number] Apr, [facility] [place] [address] [facility] [id number] [id number] Mar, [facility] [address] [address] February, [facility] [address] [id number][place] [id number] February, Diabetes type 2, controlled E11.9 ; Other obesity due to excess calories E66.09 ; Body mass index (BMI) of 30.0-30.9 in adult Z68.30 and History of shingles Z86.[address] [id number][place] [id number] Jan, Uncontrolled type 2 diabetes mellitus without complication, without long-term current use of insulin E11.65 [facility] [address] [id number][place] [address] Nov, Hypomagnesemia E83.42 and Uncontrolled type 2 diabetes mellitus without complication, without long-term current use of insulin E11.65 [facility] [address] [id number][place] [address] Nov, Uncontrolled type 2 diabetes mellitus without complication, without long-term current use of insulin E11.65 ; Hypomagnesemia E83.42 and Hyperlipidemia LDL goal <[address] [facility] [address] [id number], [place] [id number] Oct, [facility] [address] [facility] [id number] [place] [address] Sep, [facility] [address] [id number][place] [id number] Aug, [facility] [address] [id number][place] [address] Aug, Hypomagnesemia E83.[address] [facility] [address] [id number][place] [address] Aug, Uncontrolled type 2 diabetes mellitus without complication, without long-term current use of insulin E11.65 and Hypomagnesemia E83.[address] [facility] [address] [id number][place] [address]887[address] Aug, [facility] [address] [id number], [place] [address] Jul, COPD exacerbation J44.[address] [facility] [address] [id number], [place] [address]39862250 Jul, Clostridium difficile diarrhea A04.[address] [facility] [address] [id number], [place] [address] Jun, [facility] [address] [id number], [place] [id number] May, Clostridium difficile diarrhea A04.[address] [facility] [address] [id number], [place] [address] May, Clostridium difficile diarrhea A04.[address] [facility] [address] [id number], [place] [address]7628[address] May, Hypomagnesemia E83.[address] [facility] [address] [id number], [place] [address]407[address] May, Uncontrolled type 2 diabetes mellitus without complication, without long-term current use of insulin E11.65 ; Clostridium difficile diarrhea A04.7 and Hypomagnesemia E83.[address] [facility] [address] [id number], [place] [id number] May, [facility] [address] [id number], [place] [id number] May, [facility] [address] [id number], [place] [address]99[address] Apr, Clostridium difficile diarrhea A04.7 and Hypomagnesemia E83.[address] [facility] [address] [id number], [place] [id number] Apr, [facility] [address] [id number], [place] 196061462 Apr, High triglycerides E78.[address] [facility] [address] [id number], [place] [id number] February, Recurrent pneumonia J18.[address] [facility] [address] [id number], [place] 417367824 February, Hypomagnesemia E83.42 [facility] [address] [facility] [id number] February, [facility] [address] [id number], [place] 280942617 February, COPD exacerbation J44.[address] [facility] [address] [id number], [place] [id number] February, [facility] [address] [id number], [place] [id number] Jan, Uncontrolled type 2 diabetes mellitus without complication, without long-term current use of insulin E11.65 and Arthritis, lumbar spine M47.[address] [facility] [address] [id number], [place] [address]49474859 Dec, [facility] [address] [id number], [place] [address]47017399 Dec, [facility] [address] [id number] [place] [id number] Oct, [facility] [address] [id number] [place] 519[address] Oct, Uncontrolled type 2 diabetes mellitus without complication, without long-term current use of insulin E11.[address] [facility] [address] [id number] [place] [address] Sep, Uncontrolled type 2 diabetes mellitus without complication, without long-term current use of insulin E11.[address] [facility] [address] [id number] [place] [address] Aug, [facility] [address] [id number], [place] [address]7547504 Aug, [facility] [address] [facility] [id number] [place] [address] Aug, [facility] [address] [id number], [place] 1718745[address] Jul, [facility] [address] [id number], [place] [id number] Jul, Encounter for immunization Z23 ; Uncontrolled type 2 diabetes mellitus without complication, without long-term current use of insulin E11.65 and Leg cramps, sleep related G47.[address] [facility] [address] [id number], [place] [id number] May, [facility] [address] [id number] [place] [address] Apr, [facility] [address] [id number], [place] 9637656[address] Apr, Uncontrolled type 2 diabetes mellitus without complication, without long-term current use of insulin E11.65 and Hyperlipidemia LDL goal <70 E78.[address] [facility] [address] [id number] [place] [address] Mar, [facility] [address] [id number], [place] [id number] Mar, [facility] [address] [id number], [place] [address]88322581 Mar, Obstructive chronic bronchitis with exacerbation J44.1 [facility] [address] [address] February, [facility] [address] [place] [address] AVE [id number], [place] [id number] February, [place] [address] [address] February, [address] [id number], [place] 70[address] February, Controlled type 2 diabetes mellitus without complication, without long-term current use of insulin E11.9 [place] [address] [address] February, [address] [id number], [place] [id number] Jan, Pneumonia of both lungs due to infectious organism, unspecified part of lung J18.9 ; Pure hypercholesterolemia E78.0 and Hx of longterm use 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 [facility] [address] [id number], [place] [id number] Jan, [place] [address] [place] [id number] [address] Jan, [facility] [address] [id number], [place] [id number] Dec, Arthritis, lumbar spine M47.9 ; Essential hypertension with goal blood pressure less than 130\/80 I10 and Pneumonia of left lower lobe due to infectious organism J18.9 [facility] [address] [id number], [place] [id number] Dec, [facility] [address] [id number], [place] 123902896 Nov, Arthritis, lumbar spine M47.9 [place] [address] [address] 04 Nov, 2015 [facility] [address] Oct, [facility] [address] [id number], [place] [id number] Oct, High triglycerides E78.1 [facility] [address] [id number], [place] [id number] 14 Oct, 2015 Diabetes type 2, controlled E11.9 ; Arthritis, lumbar spine M47.9 and Encounter for Zostavax administration Z23 [place] [address] [place] [id number] [place] [address]- 9607 Sep, [facility] [address] [place] [address]- 9156 Aug, [facility] [address] [place] [address] 427934- 7096 Aug, [facility] [address] [id number], [place] [id number] Jul, [facility] [address] [id number], [place] 736852049 Jul, Encounter for immunization Z23 [facility] [address] [address] Jun, [facility] [address] [id number], [place] 698440144 Jun, [facility] [address] [id number], [place] 345453572 Jun, Diabetes 250.00 ; Interstitial pulmonary disease 515 and DJD ( degenerative joint disease), lumbosacral 722.[address] [facility] [address] [id number], [place] 348515941 Apr, [facility] [address] [facility] [id number] [address]03[address] Apr, [facility] [address] [id number], [place] [id number] Mar, DJD (degenerative joint disease), lumbosacral 722.52 and Lumbago 724.2 [facility] [address] [id number], [place] 451144243 February, Lumbago 724.2 and Abnormal x-ray of thoracic spine 793.7 [facility] [address] [id number], [place] 166547853 February, Gout of knee 274.00 ; Lumbago with sciatica 724.3 and Interstitial pulmonary disease 515 [facility] Art[address] [facility] [address] [id number], [place] [id number] February, [facility] [address] [place] [id number] [place] [address]- 4488 Jan, [facility] [address] [place] [id number] [place] [address] 718694- 6884 Jan, [facility] [address] [place] [id number] [place] [address] 416159- 8584 Dec, [facility] [address] [place] [id number] [place] [address] 56360- 8438 Dec, [facility] [address] [place] [id number] [place] [address] 572545- 9969 Dec, [facility] [address] [place] [id number] [place] [address] 795458- 1568 Dec, [facility] [address] [place] [id number] [place] [address] 004863- 8796 Nov, [facility] [address] [place] [id number] [place] [address] 714300- 9087 Nov, [facility] [address] [place] [id number] [place] [address] 17171- 1566 Nov, [facility] [address] [place] [id number] [place] [address] 31222- 8833 18 Nov, 2014 [facility] [place] [facility] [address] [id number] [place] [address]- 7286 Nov, 2014 [facility] [place] [facility] [address] [id number] [place] [address]- 4306 17 Nov, 2014 [facility] [place] [facility] [address] [id number] [place] [address]- 9996 Nov, 2014 [facility] [place] [facility] [address] [id number] [place] [address]- 1220 Nov, 2014 [facility] [place] [facility] [address] [id number] [place] [address]- 2491 Nov, 2014 [facility] [place] [facility] [address] [id number] [place] [address]- 7715 Nov, 2014 [facility] [place] [facility] [address] [id number] [place] [address]- 9980 Nov, 2014 [facility] [place] [facility] [address] [id number] [place] [address]- 9644 Nov, [facility] [place] [facility] [address] [id number] [place] [address]- 9174 Nov, [facility] [place] [facility] [address] [facility] [id number] [place] [address]- 6550 Oct, [facility] [place] [facility] [address] [id number] [place] [address] 2547 Oct, [facility] [place] [facility] [address] [id number] [place] [address]- 5021 Oct, [facility] [place] [facility] [address] [id number] [place] [address]- 5953 Oct, [facility] [place] [facility] [address] [id number] [place] [address]- 7243 Oct, [facility] [place] [facility] [address] [id number] [place] [address]- 1551 Oct, [facility] [place] [facility] [address] [id number] [place] [address]- 8532 13 Oct, 2014 [facility] [place] [facility] [address] [id number] [place] [address]- 4371 Oct, [facility] [place] [facility] [address] [id number] [place] [address]- 9935 Sep, [facility] [place] [facility] [address] [id number] [place] [address]- 4527 Sep, [facility] [place] [facility] [address] [id number] [place] [address]- 2229 Aug, [facility] [place] [facility] [address] [id number] [place] [address]- 8544 Aug, [facility] [place] [facility] [address] [id number] [place] [address]- 3169 Aug, [facility] [place] [facility] [address] [id number] [place] [address]- 2933 Aug, [facility] [place] [facility] [address] [id number] [place] [address]- 0080 Jul, [facility] [place] [facility] [address] [id number] [place] [address]- 1413 Jul, [facility] [place] [facility] [address] [id number] [place] [address]- 9211 29 Jun, 2014 [facility] [place] [facility] [address] [id number] [address]- 8329 29 Jun, 2014 [facility] [place] [facility] [address] [id number] [place] [address]- 2490 16 Jun, 2014 [facility] [place] [facility] [address] [id number] [place] [address]- 7584 16 Jun, 2014 [facility] [place] [facility] [address] [id number] [place] [address]- 4245 11 Jun, 2014 [facility] [place] [facility] [address] [id number] [address]- 9220 11 Jun, 2014 [facility] [place] [facility] [address] [id number] [place] [address]- 4022 Jun, [facility] [place] [facility] [address] [id number] [place] [address]- 9768 Jun, [facility] [place] [facility] [address] [id number] [place] [address]- 6440 Jun, [facility] [place] [facility] [address] [id number] [place] [address]- 2482 Jun, [facility] [place] [facility] [address] [id number] [place] [address]- 4632 Jun, [facility] [place] [facility] [address] [id number] [place] [address]- 7167 May, [facility] [place] [facility] [address] [id number] [place] [address]- 9378 May, [facility] [place] [facility] [address] [id number] [place] [address]- 1459 Apr, [facility] [place] [facility] [address] [id number] [place] [address]- 9619 Apr, [facility] [place] [facility] [address] [id number] [place] [address]- 3910 Apr, [facility] [place] [facility] [address] [id number] [place] [address]- 1884 Apr, [facility] [place] [facility] [address] [id number] [place] [address]- 8705 Apr, [facility] [place] [facility] [address] [id number] [place] [address]- 2181 Apr, [facility] [place] [facility] [address] [id number] [place] [address]- 0338 Apr, [facility] [place] [facility] [address] [id number] [place] [address]- 5513 Apr, [facility] [place] [facility] [address] [id number] [place] [address]- 7788 Apr, [facility] [place] [facility] [address] [id number] [place] [address]- 1274 Apr, [facility] [place] [facility] [address] [id number] [place] [address]- 0920 Mar, [facility] [place] [facility] [address] [id number] [place] [address]- 3787 Mar, [facility] [place] [facility] [address] [id number] [place] [address]- 6511 Mar, [facility] [place] [facility] [address] [id number] [place] [address]- 2911 Mar, [facility] [place] [facility] [address] [id number] [place] [address]- 1030 Mar, [facility] [place] [facility] [address] [id number] [place] [address]- 2525 Mar, [facility] [place] [facility] [address] [id number] [place] [address]- 5909 Mar, [facility] [place] [facility] [address] [id number] [place] [address]- 4455 Mar, [facility] [place] [facility] [address] [id number] [place] [address]- 1986 Mar, [facility] [place] [facility] [address] [id number] [place] [address]- 2893 Mar, [facility] [place] [facility] [address] [id number] [place] [address]- 9187 Mar, [facility] [place] [facility] [address] [id number] [place] [address]- 1429 Mar, [facility] [place] [facility] [address] [id number] [place] [address]- 6233 Mar, [facility] [place] [facility] [address] [id number] [place] [address]- 3553 Mar, [facility] [place] [facility] [address] [id number] [place] [address]- 9727 Mar, [facility] [place] [facility] [address] [id number] [place] [address]- 9420 Mar, [facility] [place] [facility] [address] [id number] [place] [address]- 3425 February, [facility] [place] [facility] [address] [id number] [place] [address]- 3587 February, [facility] [place] [facility] [address] [id number] [place] [address]- 3569 Jan, [facility] [place] [facility] [address] [id number] [place] [address]- 5512 Jan, [facility] [place] [facility] [address] [id number] [place] [address]- 0353 Jan, [facility] [place] [facility] [address] [id number] [place] [address]- 7343 Jan, [facility] [place] [facility] [address] [id number] [place] [address]- 6574 Dec, [facility] [place] [facility] [address] [id number] [place] [address]- 8542 Dec, [facility] [place] [facility] [address] [id number] [place] [address]- 1982 Dec, [facility] [place] [facility] [address] [id number] [place] [address]- 9679 Dec, [facility] [place] [facility] [address] [id number] [place] [address]- 8157 Nov, [facility] [place] [facility] [address] [id number] [place] [address]- 7397 Nov, [facility] [place] [facility] [address] [id number] [place] [address]- 5120 Oct, [facility] [place] [facility] [address] [id number] [place] [address]- 7651 Oct, [facility] [address] [id number] [place] [address]- 4244 Oct, [facility] [place] [facility] [address] [id number] [place] [address]- 7963 Oct, [facility] [address] [id number] [place] [address]- 9992 Oct, [facility] [place] [facility] [address] [id number] [place] [address]- 7518 Oct, [facility] [address] [id number] [place] [address]- 1655 Jun, [facility] [place] [facility] [address] [id number] [place] [address]- 5866 Jun, [facility] [address] [id number] [place] [address]- 0296 Jun, [facility] [address] [id number][place] 4115618[address] Jun, [facility] [address] [id number] [place] [address]- 3963 Apr, [facility] [place] [facility] [address] [id number] [place] [address]- 1162 Apr, [facility] [place] [facility] [address] [id number] [place] [address]- 8691 Apr, [facility] [place] [facility] [address] [id number] [place] [address] Apr, [facility] [place] [facility] [address] [id number] [place] [address] Mar, [facility] [place] [facility] [address] [id number] [place] [address] Mar, [facility] [place] [facility] [address] [id number] [place] [address] February, [facility] [place] [facility] [address] [id number] [place] [address] Jan, [facility] [address] [id number] [place] [address] Jan, [facility] [place] [facility] [address] [id number] [place] [address] Jan, [facility] [address] [id number] [place] [address] 30 Dec, 2012 [facility] [place] [facility] [address] [id number] [place] [address] Dec, [facility] [place] [facility] [address] [id number] [place] [address] Dec, [facility] [place] [facility] [address] [id number] [place] [address] Nov, [facility] [place] [facility] [address] [id number] [place] [address] Nov, [facility] [address] [id number] [place] [address] Oct, [facility] [address] [id number] [place] [address] Oct, [facility] [address] [id number] [place] [address] Oct, [facility] [address] [id number] [place] [address] Sep, [facility] [place] [facility] [address] [id number] [place] [address] Sep, [facility] [place] [facility] [address] [id number] [place] [address] Sep, [facility] [place] [facility] [address] [id number] [place] [address] 10 Sep, 2012 [facility] [place] [facility] [address] [id number] [place] [address] Sep, [facility] [place] [facility] [address] [facility] [id number] [place] [address] Sep, [facility] [place] [facility] [address] [id number] [place] [address] Sep, [facility] [place] [facility] [address] [facility] [id number] [place] [address] Sep, [facility] [place] [facility] [address] [facility] [id number] [place] [address] Aug, [facility] [place] [facility] [address] [facility] [id number] [place] [address] Aug, [facility] [place] [facility] [address] [facility] [id number] [place] [address] Jul, [facility] [place] [facility] [address] [facility] [id number] [place] [address] Jul, [facility] [place] [facility] [address] [facility] [id number] [place] [address] Jul, [facility] [place] [facility] [address] [facility] [id number] [place] [address] Jul, [facility] [place] [facility] [address] [facility] [id number] [place] [address] Jun, [facility] [place] [facility] [address] [facility] [id number] [place] [address] 13 Jun, 2012 [facility] [address] [id number] [id number] 13 Jun, 2012 [facility] [address] [facility] [id number] [id number] 13 Jun, 2012 [facility] [place] [facility] [address] [facility] [id number] [place] [address] 11 Jun, 2012 [facility] [place] [facility] [address] [facility] [id number] [place] [address] 10 Jun, 2012 [facility] [place] [facility] [address] [facility] [id number] [place] [address] Jun, [facility] [place] [facility] [address] [id number] [place] [address] Jun, [facility] [place] [facility] [address] [id number] [place] [address] May, [facility] [place] [facility] [address] [id number] [place] [address] May, [facility] [place] [facility] [address] [id number] [place] [address] May, [facility] [place] [facility] [address] [id number] [place] [address] May, [facility] [place] [facility] [address] [id number] [place] [address] May, [facility] [place] [facility] [address] [id number] [place] [address] May, [facility] [place] [facility] [address] [facility] [id number] [place] [id number] May, [facility] [place] [facility] [address] [id number] [place] [address] Apr, [facility] [place] [facility] [address] [facility] [id number] [place] [id number] Apr, [facility] [place] [facility] [address] [id number] [place] [address] Apr, [facility] [place] [facility] [address] [id number] [place] [address] Apr, [facility] [place] [facility] [address] [id number] [place] [address] Apr, [facility] [place] [facility] [address] [id number] [place] [address] Apr, [facility] [place] [facility] [address] [id number] [place] [address] Apr, [facility] [place] [facility] [address] [id number] [place] [address] Apr, [facility] [place] [facility] [address] [id number] [place] [address] Apr, [facility] [place] [facility] [address] [id number] [place] [address] Apr, [facility] [place] [facility] [address] [id number] [place] [address] Mar, [facility] [place] [facility] [address] [id number] [place] [address] February, [facility] [place] [facility] [address] [id number] [place] [address] Jan, [facility] [place] [facility] [address] [id number] [place] [address] Dec, [facility] [place] [facility] [address] [id number] [place] [address] Dec, [facility] [place] [facility] [id number] [place] [id number] Nov, [facility] [place] [facility] [id number] [place] [address] Nov, [facility] [place] [facility] [address] [facility] [id number] [place] [address] Nov, [facility] [place] [facility] [address] [id number] [place] [address] Nov, [facility] [place] [facility] [address] [facility] [id number] [place] [address] Nov, [facility] [place] [facility] [address] [id number] [place] [address] Nov, [facility] [place] [facility] [address] [facility] [id number] [place] [address] Nov, [facility] [place] [facility] [address] [id number] [place] [id number] Oct, [facility] [address] [id number] [address] Oct, [facility] [id number] [address] Oct, [facility] [id number] [address] Oct, [facility] [id number] [address] Oct, [facility] [id number] [address] Oct, [facility] [id number] [address] Sep, [facility] [id number] [address] Aug, [facility] [id number] [address] Jul, [facility] [id number] [address] Jul, [facility] [address] [id number] [address] Jul, [facility] [id number] [address] Jul, [facility] [address] [id number] [address] Jul, IMMUNIZATIONS No Known Immunizations SOCIAL HISTORY Never Assessed REASON FOR VISIT PALS received PLAN OF CARE VITAL SIGNS MEDICATIONS No [...]
--- OUTSIDE RECORDS SUMMARY | 2018-12-17 08:08 | XMS REPORT ---
Author Author PHYLLISJACKIE MARIBEL [facility] Address [address] [place] [address] Care Team Providers Care Activity Leader Name Role Phone MARIBEL GARY Unavailable PROBLEMS Type Condition ICD9-CM Code RBC38-GB Code Onset Dates Condition Status SNOMED Code Problem COPD exacerbation J44.1 Active 713356292 Problem Hypomagnesemia E83.42 Active 259172248 Problem Recurrent pneumonia J18.9 Active 047612387 Problem Contact dermatitis, unspecified contact dermatitis type, unspecified trigger L25.9 Active 86043806 Problem Arthritis, lumbar spine M47.9 Active 069236987 Problem History of shingles Z86.19 Active [id number] Problem Hyperlipidemia LDL goal <70 E78.5 Active 80254090 Problem Clostridium difficile diarrhea A04.7 Active 5115804785064 Problem Other obesity due to excess calories E66.09 Active 740762729 Problem Body mass index (BMI) of 30.0-30.9 in adult Z68.30 Active 228221262 Problem High triglycerides E78.1 Active 803700641 Problem Essential hypertension with goal blood pressure less than 130\/80 I10 Active 05233120 Problem Diabetes type 2, controlled E11.9 Active 85931386 Problem Encounter for Zostavax administration Z23 Active 264311685 Problem Controlled type 2 diabetes mellitus without complication, without long -term current use of insulin E11.9 Active 622356799 Problem Hyperlipidemia LDL goal <70 E78.5 Active 42621882 Problem Pure hypercholesterolemia E78.0 Active 949684597 Problem Uncontrolled type 2 diabetes mellitus without complication, without long-term current use of insulin E11.65 Active 543965262 Problem Hx of terminologist use 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 Active 064649429 Problem Leg cramps, sleep related G47.62 Active 95025521 ALLERGIES No Information ENCOUNTERS Encounter Location Date Diagnosis [facility] [address] [facility] [id number] [place] [id number] May, [facility] [address] [address] [id number] ANA[place]ST [place] [address] May, [facility] [address] [facility] [address] [id number] [place] [address] May, [facility] [address] [place] [address] AV [id number] [place] [address] May, Diabetes type 2, controlled E11.9 and Contact dermatitis, unspecified contact dermatitis type, unspecified trigger L25.9 [facility] [address] [id number] [place] [address] Apr, [facility] [address] [facility] [id number] [place] [address] Mar, [facility] [address] [facility] [id number][place] [address] February, [facility] [address] [facility] AV [id number] [place] [address] February, Diabetes type 2, controlled E11.9 ; Other obesity due to excess calories E66.09 ; Body mass index (BMI) of 30.0-30.9 in adult Z68.30 and History of shingles Z86.19 [facility] [address] [facility] [id number] ANA[place]ST [place] [address] Jan, Uncontrolled type 2 diabetes mellitus without complication, without long-term current use of insulin E11.65 [facility] [address] [facility] [address] [id number] ANACOST [place] [address] Nov, Hypomagnesemia E83.42 and Uncontrolled type 2 diabetes mellitus without complication, without long-term current use of insulin E11.65 [facility] [address] [facility] [address] [id number] [place] [address] Nov, Uncontrolled type 2 diabetes mellitus without complication, without long-term current use of insulin E11.65 ; Hypomagnesemia E83.42 and Hyperlipidemia LDL goal <[address] [facility] [address] [id number] [place] [address] Oct, [facility] [address] [facility] [id number] [address]21362- [address] Sep, [facility] [address] [id number] [place] [address] Aug, [facility] [address] [id number] [place] [address] Aug, Hypomagnesemia E83.[address] [facility] [address] [id number] [place]NA[place] [address] Aug, Uncontrolled type 2 diabetes mellitus without complication, without long-term current use of insulin E11.65 and Hypomagnesemia E83.[address] [facility] [address] [id number] [place] [address] Aug, [facility] [address] [address] [id number] [place] [address] Jul, COPD exacerbation J44.[address] [facility] [address] [id number] [place] [address] Jul, Clostridium difficile diarrhea A04.[address] [facility] [address] [id number] [place] [address] Jun, [facility] [address] [id number] [place] [address] May, Clostridium difficile diarrhea A04.[address] [facility] [address] [id number] [place] [address] May, Clostridium difficile diarrhea A04.[address] [facility] [address] [id number] [place] [address] May, Hypomagnesemia E83.[address] [facility] [address] [id number] [place]NA[place] [address] May, Uncontrolled type 2 diabetes mellitus without complication, without long-term current use of insulin E11.65 ; Clostridium difficile diarrhea A04.7 and Hypomagnesemia E83.[address] [facility] [address] [id number] [place]NACOST [place] 833[address] May, [facility] [address] [id number] [place] [address] May, [facility] [address] [address] [id number] [place] [address] Apr, Clostridium difficile diarrhea A04.7 and Hypomagnesemia E83.[address] [facility] [address] [id number] [place]NA[place] [address] Apr, [facility] [address] [id number] ANACOST [place] 3645037[address] Apr, High triglycerides E78.[address] [facility] [address] [id number] [place] 599[address]693 February, Recurrent pneumonia J18.[address] [facility] [address] [id number] [place]NA[place]ST [place] [address] February, Hypomagnesemia E83.42 [facility] [address] [facility] [id number], [place] [address]92[address]694[address] February, [facility] [address] [address] [id number] [place] [address] February, COPD exacerbation J44.[address] [facility] [address] [id number] [place] [address]69[address] February, [facility] [address] [address] [id number] [place] [address] Jan, Uncontrolled type 2 diabetes mellitus without complication, without long-term current use of insulin E11.65 and Arthritis, lumbar spine M47.[address] [facility] [address] [id number] [place]NACOST [place] [address]12[address] Dec, [facility] [address] [address] [id number] [place]NA[place]ST [place] [address] Dec, [facility] [address] [address] [id number] [place] [address]74[address] Oct, [facility] [address] [address] [id number] [place] [address] Oct, Uncontrolled type 2 diabetes mellitus without complication, without long-term current use of insulin E11.[address] [facility] [address] [id number] ANA[place]ST [place] 516[address]86 Sep, Uncontrolled type 2 diabetes mellitus without complication, without long-term current use of insulin E11.[address] [facility] [address] [id number] [place]NA[place] [address]694[address] Aug, [facility] [address] [address] [id number] [place] 4[address] Aug, [facility] [address] [facility] [id number] [place] [address] Aug, [facility] [address] [address] [id number] [place] [address] Jul, [facility] [address] [address] [id number] [place]NA[place]ST [place] [address]686[address] Jul, Uncontrolled type 2 diabetes mellitus without complication, without long-term current use of insulin E11.65 ; Encounter for immunization Z23 and Leg cramps, sleep related G47.[address] [facility] [address] [id number] [place]NACOST [place] 719[address] May, [facility] [address] [address] [id number] [place]NA[place]ST [place] [address]334[address]88 Apr, [facility] [address] [address] [id number] [place] 680537458 Apr, Uncontrolled type 2 diabetes mellitus without complication, without long-term current use of insulin E11.65 and Hyperlipidemia LDL goal <70 E78.[address] [facility] [address] [id number] [place] 8260[address]479 Mar, [facility] [address] [address] [id number] [place]ST [place] 0978[address]156 Mar, [facility] [address] [address] [id number] [place]NA[place]ST [place] 00285[address] Mar, Obstructive chronic bronchitis with exacerbation J44.1 [facility] [address] [facility] [id number], [place] [address]76[address] February, [facility] [address] [id number] [place]NA[place]ST [place] [address] February, [facility] [address]00565[address], [place] [address] February, [facility] [place] [address] [id number] ANACOST [place] [address] February, Controlled type 2 diabetes mellitus without complication, without long-term current use of insulin E11.9 [place] [address]00565[address], [place] [address] February, [facility] [address] [id number] [place]NA[place]ST [place] [address] Jan, Pneumonia of both lungs due to infectious organism, unspecified part of lung J18.9 ; Pure hypercholesterolemia E78.0 and Hx of nursing home use 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 [facility] [address] [id number] [place]NA[place]ST [place] 456355839 Jan, [place] [address] [place] [id number], [place] [address] Jan, [facility] [address] [id number] [place]ST [place] [address] Dec, Arthritis, lumbar spine M47.9 ; Essential hypertension with goal blood pressure less than 130\/80 I10 and Pneumonia of left lower lobe due to infectious organism J18.9 [facility] [address] [id number] [place]ST [place] 909[place] Dec, [facility] [address] [id number] [place] [id number] Nov, Arthritis, lumbar spine M47.9 [facility] [address] [facility] [id number], [place] [address] Nov, [facility] [address] [place] [id number], [place] [address] Oct, [facility] [address] [address] [id number] [place] 168393[address] Oct, High triglycerides E78.1 [facility] [address] [id number] [place] 501592868 Oct, Diabetes type 2, controlled E11.9 ; Arthritis, lumbar spine M47.9 and Encounter for Zostavax administration Z23 [facility] [address]65[address], [place] [address] Sep, [facility] [address]65100[place], [place] [address] Aug, [facility] [address]65[address], [place] [address]- [address] Aug, [facility] [address] [id number] [place] 468381980 Jul, [facility] [address] [id number] [place] [id number] Jul, Encounter for immunization Z23 [facility] [address] [place] [id number], [place] [address]46 Jun, [facility] [address] [id number] [place] 201680903 Jun, [facility] [address] [id number] [place] 887970302 Jun, Diabetes 250.00 ; Interstitial pulmonary disease 515 and DJD ( degenerative joint disease), lumbosacral 722.52 [facility] [address] [id number] [place]NA[place]ST [place] 538105738 Apr, [facility] [place] [id number] 15[address]384[address] Apr, [facility] [address] [id number] [place] 376665443 Mar, DJD (degenerative joint disease), lumbosacral 722.[address] [facility] [address] [facility] [address] [id number] [place]NA[place]ST [place] 875608016 February, Lumbago 724.2 and Abnormal x-ray of thoracic spine 793.7 [facility] [address] [facility] [address] [id number] [place] 887265709 February, Gout of knee 274.00 ; Lumbago with sciatica 724.3 and Interstitial pulmonary disease 515 [facility] [address] [facility] [address] [id number] ANA[place]ST [place] [id number] February, [facility] [address] [place] [id number] [place] [address]- 1455 Jan, [facility] [address] [place] [id number] [place] [address]- 9556 Jan, [facility] [address] [place] [id number] [place] [address]- 0718 Dec, [facility] [address] [place] [id number] [place] [address]- 1583 Dec, [facility] [address] [place] [id number] [place] [address] 282816- 5864 Dec, [facility] [id number] [place] [address] 36869- 9326 Dec, [facility] [address] [place] [id number] [place] [address] 922579- 8860 Nov, [facility] [address] [place] [id number] [place] [address] 488810- 3956 Nov, [facility] [address] [place] [id number] [place] [address]56- 1326 Nov, [facility] [address]65100[place], [place] [address]- 1646 Nov, [facility] [address] [place] [id number] [place] [address]- [address] 17 Nov, 2014 [facility] [place] [facility] [address] [id number] [place] [address]- 1066 Nov, 2014 [facility] [place] [facility] [address] [id number] [place] [address]- 2546 Nov, 2014 [facility] [place] [facility] [address] [id number] [place] [address]- 0886 Nov, 2014 [facility] [place] [facility] [address] [id number] [place] [address]- 4435 Nov, 2014 [facility] [place] [facility] [address] [id number] [place] [address]- 0584 Nov, 2014 [facility] [place] [facility] [address] [id number] [place] [address]- 0271 Nov, 2014 [facility] [place] [facility] [address] [id number] [place] [address]- 3383 Nov, 2014 [facility] [place] [facility] [address] [id number] [place] [address]- 6420 Nov, [facility] [place] [facility] [address] [facility] [id number] [place] [address]- 0743 Oct, [facility] [place] [facility] [address] [id number] [place] [address]- 6290 Oct, [facility] [place] [facility] [address] [id number] [place] [address]- 9991 Oct, [facility] [place] [facility] [address] [id number] [place] [address]- 7207 Oct, [facility] [place] [facility] [address] [id number] [place] [address]- 3053 Oct, [facility] [place] [facility] [address] [id number] [place] [address]- 6587 Oct, [facility] [place] [facility] [address] [id number] [place] [address]- 8628 Oct, [facility] [place] [facility] [address] [id number] [place] [address]- 9954 Oct, [facility] [place] [facility] [address] [id number] [place] [address]- 4505 Sep, [facility] [place] [facility] [address] [id number] [place] [address]- 1909 Sep, [facility] [place] [facility] [address] [id number] [place] [address]- 2922 Aug, [facility] [place] [facility] [address] [id number] [place] [address]- 1019 Aug, [facility] [place] [facility] [address] [id number] [place] [address]- 6333 Aug, [facility] [place] [facility] [address] [id number] [place] [address]- 3579 Aug, [facility] [place] [facility] [address] [id number] [place] [address]- 2787 Jul, [facility] [place] [facility] [address] [id number] [place] [address]- 8786 Jul, [facility] [place] [facility] [address] [id number] [place] [address]- 9257 29 Jun, 2014 [facility] [place] [facility] [address] [id number] [place] [address]- 6504 29 Jun, 2014 [facility] [place] [facility] [address] [id number] [place] [address]- 2597 16 Jun, 2014 [facility] [place] [facility] [address] [id number] [place] [address]- 5061 16 Jun, 2014 [facility] [place] [facility] [address] [id number] [place] [address]- 0923 11 Jun, 2014 [facility] [place] [facility] [address] [id number] [place] [address]- 6200 11 Jun, 2014 [facility] [place] [facility] [address] [id number] [place] [address]- 5743 04 Jun, 2013 [facility] [place] [facility] [address] [id number] [place] [address]- 7235 04 Jun, 2013 [facility] [place] [facility] [address] [id number] [place] [address]- 3546 Jun, 2013 [facility] [place] [facility] [address] [id number] [place] [address]- 3203 Jun, [facility] [place] [facility] [address] [id number] [place] [address]- 2100 Jun, [facility] [place] [facility] [address] [id number] [place] [address]- 7103 May, [facility] [place] [facility] [address] [id number] [place] [address]- 5562 May, [facility] [place] [facility] [address] [id number] [place] [address]- 2769 Apr, [facility] [place] [facility] [address] [id number] [place] [address]- 8957 Apr, [facility] [place] [facility] [address] [id number] [place] [address]- 1717 Apr, [facility] [place] [facility] [address] [id number] [place] [address]- 5224 Apr, [facility] [place] [facility] [address] [id number] [place] [address]- 4597 Apr, [facility] [place] [facility] [address] [id number] [place] [address]- 5892 Apr, [facility] [place] [facility] [address] [id number] [place] [address]- 8337 Apr, [facility] [place] [facility] [address] [id number] [place] [address]- 0124 Apr, [facility] [place] [facility] [address] [id number] [place]- 1675 Apr, [facility] [place] [facility] [address] [id number] [place] [address]- 1063 Apr, [facility] [place] [facility] [address] [id number] [place] [address]- 9866 Mar, [facility] [place] [facility] [address] [id number] [place] [address]- 4271 Mar, [facility] [place] [facility] [address] [id number] [place] [address]- 2494 Mar, [facility] [place] [facility] [address] [id number] [place] [address]- 4450 Mar, [facility] [place] [facility] [address] [id number] [place] [address]- 2483 Mar, [facility] [place] [facility] [address] [id number] [place] [address]- 4630 Mar, [facility] [place] [facility] [address] [id number] [place] [address]- 6919 Mar, [facility] [place] [facility] [address] [id number] [place] [address]- 0636 Mar, [facility] [place] [facility] [address] [id number] [place] [address]- 7867 Mar, [facility] [place] [facility] [address] [id number] [place] [address]- 9357 Mar, [facility] [place] [facility] [address] [id number] [place] [address]- 2368 Mar, [facility] [place] [facility] [address] [id number] [place] [address]- 8785 Mar, [facility] [place] [facility] [address] [id number] [place] [address]- 7476 Mar, [facility] [place] [facility] [address] [id number] [place] [address]- 6421 Mar, [facility] [place] [facility] [address] [id number], [place] [address]- 4445 Mar, [facility] [place] [facility] [address] [id number] [place] [address]- 6729 Mar, [facility] [place] [facility] [address] [id number] [place] [address]- 7229 February, [facility] [place] [facility] [address] [id number] [place] [address]- 1302 February, [facility] [place] [facility] [address] [id number] [place] [address]- 6944 Jan, [facility] [place] [facility] [address] [id number] [place] [address]- 9765 Jan, [facility] [place] [facility] [address] [id number] [place] [address]- 8790 Jan, [facility] [place] [facility] [address] [id number] [place] [address]- 9434 Jan, [facility] [place] [facility] [address] [id number] [place] [address]- 9111 Dec, [facility] [place] [facility] [address] [id number] [place] [address]- 3160 Dec, [facility] [place] [facility] [address] [facility] [id number] [place] [address]- 8061 Dec, [facility] [place] [facility] [address] [id number] [place] [address]- 1208 Dec, [facility] [place] [facility] [address] [id number] [place] [address] Nov, [facility] [place] [facility] [address] [id number] [place] [address] Nov, [facility] [place] [facility] [address] [id number] [place] [address] Oct, [facility] [place] [facility] [address] [id number] [place] [address] Oct, [facility] [place] [facility] [address] [id number] [place] [address] Oct, [facility] [place] [facility] [address] [id number] [place] [address] Oct, [facility] [place] [facility] [address] [id number] [place] [address] Oct, [facility] [place] [facility] [address] [id number] [place] [address] Oct, [facility] [place] [facility] [address] [id number] [place] [address] Jun, [facility] [place] [facility] [address] [id number] [place] [address] Jun, [facility] [address] [id number] [place] [address] Jun, [facility] [address] [id number] [place] [id number] Jun, [facility] [address] [id number] [place] [address] Apr, [facility] [place] [facility] [address] [id number] [place] [address] Apr, [facility] [address] [id number] [place] [address]- [address] Apr, [facility] [place] [facility] [address] [id number] [place] [address]- [address] Apr, [facility] [place] [facility] [address] [id number] [place] [address] Mar, [facility] [place] [facility] [address] [id number] [place] [address] Mar, [facility] [place] [facility] [address] [id number] [place] [address] February, [facility] [place] [facility] [address] [id number] [place] [address] Jan, [facility] [address] [id number] [place] [address] Jan, [facility] [address] [id number] [place] [address]- [address] Jan, [facility] [address] [id number] [place] [address]- [address] 30 Dec, 2012 [facility] [place] [facility] [address] [id number] [place] [address] Dec, [facility] [address] [id number] [place] [address] Dec, [facility] [address] [id number] [place] [address] Nov, [facility] [address] [id number] [place] [address] Nov, [facility] [address] [id number] [place] [address]15 Oct, [facility] [address] [id number] [place] [address] Oct, [facility] [address] [id number] [place] [address] Oct, [facility] [address] [id number] [place] [address] Sep, [facility] [place] [facility] [address] [id number] [place] [address] Sep, [facility] [place] [facility] [address] [id number] [place] [address] Sep, [facility] [place] [facility] [address] [id number] [place] [address]- [address] Sep, [facility] [place] [facility] [address] [id number] [place] [address]- [address] 06 Sep, 2012 [facility] [place] [facility] [address] [id number], [place] [address] Sep, [facility] [place] [facility] [address] [id number] [place] [address] Sep, [facility] [place] [facility] [address] [facility] [id number] [place] [address] Sep, [facility] [place] [facility] [address] [id number], [place] [address] Aug, [facility] [place] [facility] [address] [id number] [place] [address] Aug, [facility] [place] [facility] [address] [id number] [place] [address]- [address] Jul, [facility] [place] [facility] [address] [id number] [place] [address] Jul, [facility] [place] [facility] [address] [facility] [id number], [place] [address] Jul, [facility] [place] [facility] [address] [id number], [place] [address] Jul, [facility] [place] [facility] [address] [facility] [id number], [place] [address] 21 Jun, 2012 [facility] [place] [facility] [address] [facility] [id number], [place] [address] 13 Jun, 2012 [facility] [id number] [id number] 13 Jun, 2012 [facility] [address] [facility] [id number] [place] [id number] 13 Jun, 2012 [facility] [place] [facility] [address] [facility] [id number], [place] [address] 11 Jun, 2012 [facility] [place] [facility] [address] [facility] [id number], [place] [address] 10 Jun, 2012 [facility] [place] [facility] [address] [facility] [id number], [place] [address] 08 Jun, 2012 [facility] [place] [facility] [address] [facility] [id number] [place] [address] Jun, [facility] [place] [facility] [address] [id number] [place] [address] May, [facility] [place] [facility] [address] [id number] [place] [address] May, [facility] [place] [facility] [address] [id number] [place] [address] May, [facility] [place] [facility] [address] [id number] [place] [address] May, [facility] [place] [facility] [address] [id number] [place] [address] May, [facility] [place] [facility] [address] [id number] [place] [address] May, [facility] [address] [facility] [id number] [place] [id number] May, [facility] [place] [facility] [address] [id number] [place] [address] Apr, [facility] [place] [facility] [address] [facility] [id number] [place] [id number] Apr, [facility] [place] [facility] [address] [id number] [place] [address] Apr, [facility] [place] [facility] [address] [id number] [place] [address] Apr, [facility] [place] [facility] [address] [id number] [place] [address] Apr, [facility] [place] [facility] [address] [id number] [place] [address] Apr, [facility] [place] [facility] [address] [id number] [place] [address] Apr, [facility] [place] [facility] [address] [id number] [place] [address] Apr, [facility] [place] [facility] [address] [id number] [place] [address] Apr, [facility] [place] [facility] [address] [id number] [place] [address] Apr, [facility] [place] [facility] [address] [id number] [place] [address] Mar, [facility] [place] [facility] [address] [id number] [place] [address] February, [facility] [place] [facility] [address] [id number] [place] [address] Jan, [facility] [place] [facility] [address] [id number] [place] [address] Dec, [facility] [place] [facility] [address] [id number] [place] [address] Dec, [facility] [place] [facility] [id number] [id number] Nov, [facility] [place] [facility] [address] [id number] [place] [address] Nov, [facility] [place] [facility] [address] [id number] [place] [address] Nov, [facility] [place] [facility] [address] [id number] [place] [address] Nov, [facility] [place] [facility] [address] [id number] [place] [address] Nov, [facility] [place] [facility] [address] [id number] [place] [address] Nov, [facility] [place] [facility] [address] [id number] [place] [address] 25[address] Nov, [facility] [place] [facility] [address] [id number] [place] [id number] Oct, [facility] [place] [facility] [address] [id number], [place] [address] Oct, [facility] [address] [id number], [place] [address] Oct, [facility] [id number] [address] [address] Oct, [facility] [id number], [place] [address] Oct, [facility] [id number], [place] [address] Oct, [facility] [id number], [place] [address] Sep, [facility] [id number], [place] [address] Aug, [facility] [id number], [place] [address] Jul, [facility] [id number], [place] [address] Jul, [facility] [id number], [place] [address] Jul, [facility] [id number], [place] [address] Jul, [facility] [address] [id number], [place] [address] Jul, IMMUNIZATIONS No Known Immunizations SOCIAL HISTORY Never Assessed REASON FOR VISIT medication PLAN OF CARE VITAL SIGNS MEDICATIONS Medication Instructions Dosage Frequency Start Date End Date Duration Status Crestor 10 mg Orally Once a day [...]
--- OUTSIDE RECORDS SUMMARY | 2018-12-17 08:09 | XMS REPORT ---
Author Author ABDIRAHMAN MARIBEL [facility] Address [address] [place] [address] Care Team Providers Care Assistant Merchandise Manager Name Role Phone MARIBEL GARY Unavailable PROBLEMS Type Condition ICD9-CM Code TBX75-OZ Code Onset Dates Condition Status SNOMED Code Problem COPD exacerbation J44.1 Active 552927545 Problem Hypomagnesemia E83.42 Active 983184768 Problem Recurrent pneumonia J18.9 Active 660891423 Problem Contact dermatitis, unspecified contact dermatitis type, unspecified trigger L25.9 Active 06186133 Problem Arthritis, lumbar spine M47.9 Active 114614898 Problem History of shingles Z86.19 Active [id number] Problem Hyperlipidemia LDL goal <70 E78.5 Active 16673736 Problem Clostridium difficile diarrhea A04.7 Active 0635684580094 Problem Other obesity due to excess calories E66.09 Active 547895744 Problem Body mass index (BMI) of 30.0-30.9 in adult Z68.30 Active 283028379 Problem High triglycerides E78.1 Active 038897441 Problem Essential hypertension with goal blood pressure less than 130\/80 I10 Active 65766797 Problem Diabetes type 2, controlled E11.9 Active 34397618 Problem Encounter for Zostavax administration Z23 Active 768762518 Problem Controlled type 2 diabetes mellitus without complication, without long -term current use of insulin E11.9 Active 660289657 Problem Hyperlipidemia LDL goal <70 E78.5 Active 58557830 Problem Pure hypercholesterolemia E78.0 Active 290429786 Problem Uncontrolled type 2 diabetes mellitus without complication, without long-term current use of insulin E11.65 Active 034218839 Problem 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 Active 795676688 Problem Leg cramps, sleep related G47.62 Active 33430746 ALLERGIES Substance Reaction Event Type Date Status Lipitor muscle aches Drug Allergy February, Active ENCOUNTERS Encounter Location Date Diagnosis [facility] [address] [id number] [place] [id number] May, [address] [id number] [place] [address] May, [address] [id number] [place] [address] May[facility] [id number] [place] [address] May, Diabetes type 2, controlled E11.9 and Contact dermatitis, unspecified contact dermatitis type, unspecified trigger L25.9 [facility] [id number] [place] [address] Apr, [facility] [address] [facility] [id number] [id number] Mar, [facility] [address] [id number] [address] February, [facility] [address] [id number] [place] [id number] February, Diabetes type 2, controlled E11.9 ; Other obesity due to excess calories E66.09 ; Body mass index (BMI) of 30.0-30.9 in adult Z68.30 and History of shingles Z86.19 [facility] [id number] [place] [id number] Jan, Uncontrolled type 2 diabetes mellitus without complication, without long-term current use of insulin E11.65 [facility] [id number] [place] [address] Nov, Hypomagnesemia E83.42 and Uncontrolled type 2 diabetes mellitus without complication, without long-term current use of insulin E11.65 [facility] [id number] [place] [address] Nov, Uncontrolled type 2 diabetes mellitus without complication, without long-term current use of insulin E11.65 ; Hypomagnesemia E83.42 and Hyperlipidemia LDL goal <70 E78.5 [facility] [address] [address] [id number] [place] [address] Oct, [facility] [address] [facility] [id number] [place] [address] Sep, [facility] [address] [id number] [place] [address] Aug, [facility] [address] [id number] [place] [address] Aug, Hypomagnesemia E83.[address] [facility] [address] [id number] [place] [address] Aug, Uncontrolled type 2 diabetes mellitus without complication, without long-term current use of insulin E11.65 and Hypomagnesemia E83.[address] [facility] [address] [id number] [place] [id number] Aug, [facility] [address] [address] [id number] [place] [address] Jul, COPD exacerbation J44.[address] [facility] [address] [id number] [place] [address] Jul, Clostridium difficile diarrhea A04.[address] [facility] [address] [id number] [place] [address] Jun, [facility] [address] [address] [id number] [place] [address] May, Clostridium difficile diarrhea A04.[address] [facility] [address] [id number] [place] [address] May, Clostridium difficile diarrhea A04.[address] [facility] [address] [id number] [place] [address] May, Hypomagnesemia E83.[address] [facility] [address] [id number] [place] [address] May, Uncontrolled type 2 diabetes mellitus without complication, without long-term current use of insulin E11.65 ; Clostridium difficile diarrhea A04.7 and Hypomagnesemia E83.[address] [facility] [address] [id number] [place] [address] May, [facility] [address] [id number] [place] [address] May, [facility] [address] [address] [id number] [place] [address] Apr, Clostridium difficile diarrhea A04.7 and Hypomagnesemia E83.[address] [facility] [address] [id number] [place] [address] Apr, [facility] [address] [address] [id number] [place] [address] Apr, High triglycerides E78.[address] [facility] [address] [id number] [place] [address] February, Recurrent pneumonia J18.[address] [facility] [address] [id number] [place] [address] February, Hypomagnesemia E83.42 [facility] [address] [facility] [id number], [place] [address] February, [facility] [address] [address] [id number] [place] [address] February, COPD exacerbation J44.[address] [facility] [address] [id number] [place] [address] February, [facility] [address] [address] [id number] [place] [address] Jan, Uncontrolled type 2 diabetes mellitus without complication, without long-term current use of insulin E11.65 and Arthritis, lumbar spine M47.[address] [facility] [address] [id number] [place] [address] Dec, [facility] [address] [id number] [place] [address] Dec, [facility] [address] [address] [id number] [place] [id number] Oct, [facility] [address] [address] [id number] [place] [address] Oct, Uncontrolled type 2 diabetes mellitus without complication, without long-term current use of insulin E11.[address] [facility] [address] [id number] [place] [address] Sep, Uncontrolled type 2 diabetes mellitus without complication, without long-term current use of insulin E11.[address] [facility] [address] [id number] [place] [address] Aug, [facility] [address] [address] [id number] [place] [address] Aug, [facility] [address] [facility] [id number] [place] [address] Aug, [facility] [address] [address] [id number] [place] [address] Jul, [facility] [address] [address] [id number] [place] [address] Jul, Uncontrolled type 2 diabetes mellitus without complication, without long-term current use of insulin E11.65 ; Encounter for immunization Z23 and Leg cramps, sleep related G47.[address] [facility] [address] [id number] [place] [address]95[place] May, [facility] [address] [address] [id number] [place] [address] Apr, [facility] [address] [address] [id number] [place] [address]64[place] Apr, Uncontrolled type 2 diabetes mellitus without complication, without long-term current use of insulin E11.65 and Hyperlipidemia LDL goal <70 E78.[address] [facility] [address] [id number] [place] [id number] Mar, [facility] [address] [address] [id number] [place] [address] Mar, [facility] [address] [address] [id number] [place] [address] Mar, Obstructive chronic bronchitis with exacerbation J44.1 [facility] [address], [place] [address] February, [facility] [address] [id number] [place] [address] February, [facility] [address], [place] [address] February, [facility] [address] [id number] [place] [address] February, Controlled type 2 diabetes mellitus without complication, without long-term current use of insulin E11.9 [address], [place] [address] February, [facility] [address] [id number] [place] [address] Jan, Pneumonia of both lungs due to infectious organism, unspecified part of lung J18.9 ; Pure hypercholesterolemia E78.0 and 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 [facility] [address] [id number] [place] [address]253 Jan, [address], [place] [address] Jan, [facility] [address] [id number] [place] [address] Dec, Arthritis, lumbar spine M47.9 ; Essential hypertension with goal blood pressure less than 130\/80 I10 and Pneumonia of left lower lobe due to infectious organism J18.9 [facility] [address] [id number] [place] 788[place]016 Dec, [facility] [address] [id number] [place] 213[address] Nov, Arthritis, lumbar spine M47.9 [address] [id number], [place] [address] 04 Nov, 2015 [facility] [address] Oct, [facility] [address] [id number] [place] 013395412 Oct, High triglycerides E78.1 [facility] [address] [address] [id number] [place] [address] Oct, Diabetes type 2, controlled E11.9 ; Arthritis, lumbar spine M47.9 and Encounter for Zostavax administration Z23 [facility] [id number] [place] [address] Sep, [facility] [address] [place] [address] 6[address]- 1106 Aug, [facility] [address] [place] [address]- 8[address] Aug, [facility] [address] [id number] [place] [id number] Jul, [facility] [address] [id number] [place] [address]05302539 Jul, Encounter for immunization Z23 [facility] [address] [id number], [place] [address] Jun, [facility] [address] [id number] [place] [id number] Jun, [facility] [address] [id number] [place] 511840337 Jun, Diabetes 250.00 ; Interstitial pulmonary disease 515 and DJD ( degenerative joint disease), lumbosacral 722.[address] [facility] [address] [id number] [place] 69[address] Apr, [facility] [address] [facility] [id number][place] [address]90603660 Apr, [facility] [address] [id number] [place] [address]84616 Mar, DJD (degenerative joint disease), lumbosacral 722.52 and Lumbago 724.2 [facility] [address] [id number] [place] 79[place]214 February, Lumbago 724.2 and Abnormal x-ray of thoracic spine 793.7 [facility] [address] [id number] [place] [address]88613654 February, Gout of knee 274.00 ; Lumbago with sciatica 724.3 and Interstitial pulmonary disease 515 [facility] [address] [id number] [place] [id number] February, [facility] [id number] [place] [address] 9[address]- 3756 Jan, [facility] [id number] [place] [address]- 0196 Jan, [facility] [id number] [place] [address]- 6819 Dec, [facility] [id number] [place] [address] 060975- 0284 Dec, [facility] [id number] [place] [address] 87459- 5233 Dec, [facility] [id number] [place] [address] 16566- 4596 Dec, [facility] [address] [place] [address] 9[address]65- 2926 Nov, [facility] [id number] [place] [address]- 1196 Nov, [facility] [id number] [place] [address]- 9916 Nov, [facility] [id number] [place] [address] 27605- 0752 Nov, 2014 [facility] [place] [facility] [address] [id number] [place] [address]- [address] Nov, [facility] [place] [facility] [address] [id number] [place] [address]- 3356 Nov, 2014 [facility] [place] [facility] [address] [facility] [id number] [place] [address]- 7315 Nov, 2014 [facility] [place] [facility] [address] [id number] [place] [address]- 9487 Nov, 2014 [facility] [place] [facility] [address] [id number] [place] [address]- 7637 Nov, [facility] [place] [facility] [address] [facility] [id number] [place] [address]- 8473 Nov, 2014 [facility] [place] [facility] [address] [facility] [id number] [place] [address]- 6701 Nov, [facility] [place] [facility] [address] [facility] [id number] [place] [address]- 4876 Nov, [facility] [place] [facility] [address] [facility] [id number] [place] [address]- 4968 Nov, [facility] [place] [facility] [address] [facility] [id number] [place] [address]- 1198 Oct, [facility] [place] [facility] [address] [facility] [id number] [place] [address]- 8639 Oct, [facility] [place] [facility] [address] [facility] [id number] [place] [address]- 5210 Oct, [facility] [place] [facility] [address] [id number] [place] [address]- 2219 Oct, [facility] [place] [facility] [address] [facility] [id number] [place] [address]- 7384 Oct, [facility] [place] [facility] [address] [facility] [id number] [place] [address]- 2283 Oct, [facility] [place] [facility] [address] [id number] [place] [address]- 5485 Oct, [facility] [place] [facility] [address] [id number] [place] [address]- 0812 Oct, [facility] [place] [facility] [address] [id number] [place] [address]- 5036 Sep, [facility] [place] [facility] [address] [id number] [place] [address]- 8575 Sep, [facility] [place] [facility] [address] [id number] [place] [address]- 6323 Aug, [facility] [place] [facility] [address] [id number] [place] [address]- 5283 Aug, [facility] [place] [facility] [address] [id number] [place] [address]- 7288 Aug, [facility] [place] [facility] [address] [id number] [place] [address]- 7704 Aug, [facility] [place] [facility] [address] [id number] [place] [address]- 7012 Jul, [facility] [place] [facility] [address] [id number] [place] [address]- 6359 Jul, [facility] [place] [facility] [address] [id number] [place] [address]- 5753 29 Jun, 2014 [facility] [place] [facility] [address] [id number] [place] [address]- 0700 29 Jun, 2014 [facility] [place] [facility] [address] [id number] [place] [address]- 8628 16 Jun, 2014 [facility] [place] [facility] [address] [id number] [place] [address]- 4235 16 Jun, 2014 [facility] [place] [facility] [address] [id number] [place] [address]- 2781 11 Jun, 2014 [facility] [place] [facility] [address] [id number] [place] [address]- 5479 Jun, [facility] [place] [facility] [address] [id number] [place] [address]- 4449 Jun, [facility] [place] [facility] [address] [id number] [place] [address]- 4079 Jun, [facility] [place] [facility] [address] [id number] [place] [address]- 6542 Jun, [facility] [place] [facility] [address] [id number] [place] [address]- 1791 Jun, [facility] [place] [facility] [address] [id number] [place] [address]- 2186 Jun, [facility] [place] [facility] [address] [id number] [place] [address]- 9367 May, [facility] [place] [facility] [address] [id number] [place] [address]- 3475 May, [facility] [place] [facility] [address] [id number] [place] [address]- 5931 Apr, [facility] [place] [facility] [address] [id number] [place] [address]- 3036 Apr, [facility] [place] [facility] [address] [id number] [place] [address]- 6588 Apr, [facility] [place] [facility] [address] [id number] [place] [address]- 3702 Apr, [facility] [place] [facility] [address] [id number] [place] [address]- 7388 Apr, [facility] [place] [facility] [address] [id number] [place] [address]- 7064 Apr, [facility] [place] [facility] [address] [id number] [place] [address]- 2334 Apr, [facility] [place] [facility] [address] [id number] [place] [address]- 2232 Apr, [facility] [place] [facility] [address] [id number] [place] [address]- 4754 Apr, [facility] [place] [facility] [address] [id number] [place] [address]- 6818 Apr, [facility] [place] [facility] [address] [id number] [place] [address]- 1725 Mar, [facility] [place] [facility] [address] [id number] [place] [address]- 1179 Mar, [facility] [place] [facility] [address] [id number] [place] [address]- 7083 Mar, [facility] [place] [facility] [address] [id number] [place] [address]- 7600 Mar, [facility] [place] [facility] [address] [id number] [place] [address]- 8581 Mar, [facility] [place] [facility] [address] [id number] [place] [address]- 0026 Mar, [facility] [place] [facility] [address] [id number] [place] [address]- 5343 Mar, [facility] [place] [facility] [address] [id number] [place] [address]- 4833 Mar, [facility] [place] [facility] [address] [id number] [place] [address]- 6630 Mar, [facility] [place] [facility] [address] [id number] [place] [address]- 4918 Mar, [facility] [place] [facility] [address] [id number] [place] [address]- 5235 Mar, [facility] [place] [facility] [address] [id number] [place] [address]- 8467 Mar, [facility] [place] [facility] [address] [id number] [place] [address]- 9285 Mar, [facility] [place] [facility] [address] [id number] [place] [address]- 4954 Mar, [facility] [place] [facility] [address] [id number] [place] [address]- 5615 Mar, [facility] [place] [facility] [address] [id number] [place] [address]- 1814 Mar, [facility] [place] [facility] [address] [id number] [place] [address]- 4055 February, [facility] [place] [facility] [address] [id number] [place] [address]- 4879 February, [facility] [place] [facility] [address] [id number] [place] [address]- 0908 Jan, [facility] [place] [facility] [address] [id number] [place] [address]- 3876 Jan, [facility] [place] [facility] [address] [id number] [place] [address]- 8931 Jan, [facility] [place] [facility] [address] [id number] [place] [address]- 8650 Jan, [facility] [place] [facility] [address] [id number] [place] [address]- 5319 Dec, [facility] [place] [facility] [address] [id number] [place] [address]- 3745 Dec, [facility] [place] [facility] [address] [id number] [place] [address]- 5326 Dec, [facility] [place] [facility] [address] [id number] [place] [address]- 0138 Dec, [facility] [place] [facility] [address] [id number] [place] [address]- 5864 Nov, [facility] [place] [facility] [address] [id number] [place] [address]- 7930 Nov, [facility] [place] [facility] [address] [id number] [place] [address]- 0276 Oct, [facility] [place] [facility] [address] [id number], [place] [address]- 3646 Oct, [facility] [address] [id number] [place] [address]- 4748 Oct, [facility] [place] [facility] [address] [id number] [place] [address]- 2624 Oct, [facility] [place] [facility] [address] [id number] [place] [address] Oct, [facility] [place] [facility] [address] [id number] [place] [address] Oct, [facility] [place] [facility] [address] [id number] [place] [address] Jun, [facility] [place] [facility] [address] [id number] [place] [address] Jun, [facility] [address] [id number], [place] [address] Jun, [facility] [address] [id number] [id number] Jun, [facility] [address] [id number] [place] [address] Apr, [facility] [place] [facility] [address] [id number] [place] [address] Apr, [facility] [address] [id number], [place] [address] Apr, [facility] [place] [facility] [address] [id number], [place] [address] Apr, [facility] [place] [facility] [address] [id number] [place] [address] Mar, [facility] [place] [facility] [address] [id number] [place] [address] Mar, [facility] [place] [facility] [address] [id number] [place] [address] February, [facility] [place] [facility] [address] [id number] [place] [address] Jan, [facility] [address] [id number] [place] [address] Jan, [facility] [address] [id number] [place] [address] Jan, [facility] [address] [id number] [place] [address] Dec, [facility] [address] [id number] [place] [address] Dec, [facility] [address] [id number] [place] [address] Dec, [facility] [address] [id number] [place] [address] Nov, [facility] [address] [id number] [place] [address] Nov, [facility] [address] [id number] [place] [address] Oct, [facility] [address] [id number] [place] [address] Oct, [facility] [address] [id number] [place] [address] Oct, [facility] [address] [id number] [place] [address] Sep, [facility] [address] [id number] [place] [address] Sep, [facility] [address] [id number] [place] [address] Sep, [facility] [address] [id number] [place] [address] Sep, [facility] [address] [id number] [place] [address] Sep, [facility] [address] [id number] [place] [address] Sep, [facility] [place] [facility] [address] [id number] [place] [address] Sep, [facility] [place] [facility] [address] [id number] [place] [address] Sep, [facility] [place] [facility] [address] [id number] [place] [address]- [address] Aug, [facility] [place] [facility] [address] [id number] [place] [address] Aug, [facility] [place] [facility] [address] [id number] [place] [address] Jul, [facility] [place] [facility] [address] [id number] [place] [address] Jul, [facility] [place] [facility] [address] [facility] [id number], [place] [address] Jul, [facility] [place] [facility] [address] [facility] [id number] [place] [address] Jul, [facility] [facility] [address] [facility] [id number] [address] Jun, [facility] [facility] [address] [id number], [place] [address] 13 Jun, 2012 [facility] [address] [id number] [id number] 13 Jun, 2012 [facility] [address] [id number] [place] [id number] 13 Jun, 2012 [facility] [place] [facility] [address] [facility] [id number], [place] [address] 11 Jun, 2012 [facility] [facility] [address] [facility] [id number], [place] [address] 10 Jun, 2012 [facility] [facility] [address] [facility] [id number], [place] [address] Jun, [facility] [place] [facility] [address] [id number] [place] [address] Jun, [facility] [place] [facility] [address] [id number] [place] [address] May, [facility] [place] [facility] [address] [id number] [place] [address] May, [facility] [place] [facility] [address] [id number] [place] [address] May, [facility] [place] [facility] [address] [id number] [place] [address] May, [facility] [place] [facility] [address] [id number] [place] [address] May, [facility] [place] [facility] [address] [id number] [place] [address] May, [facility] [address] [facility] [id number] [place] [id number] May, [facility] [place] [facility] [address] [id number] [place] [address] Apr, [facility] [facility] [address] [facility] [id number] [place] [id number] Apr, [facility] [place] [facility] [address] [id number] [place] [address] Apr, [facility] [place] [facility] [address] [id number] [place] [address] Apr, [facility] [place] [facility] [address] [id number] [place] [address] Apr, [facility] [place] [facility] [address] [id number] [place] [address] Apr, [facility] [place] [facility] [address] [id number] [place] [address] Apr, [facility] [place] [facility] [address] [id number], [place] [address] Apr, [facility] [place] [facility] [address] [id number] [place] [address] Apr, [facility] [place] [facility] [address] [id number] [place] [address] Apr, [facility] [place] [facility] [address] [id number] [place] [address] Mar, [facility] [place] [facility] [address] [id number] [place] [address] February, [facility] [place] [facility] [address] [id number] [place] [address] Jan, [facility] [place] [facility] [address] [id number] [place] [address] Dec, [facility] [place] [facility] [address] [id number] [place] [address] Dec, [facility] [id number] [id number] Nov, [facility] [place] [facility] [address] [id number] [place] [address] Nov, [facility] [place] [facility] [address] [id number] [place] [address] Nov, [facility] [place] [facility] [address] [id number] [place] [address] Nov, [facility] [place] [facility] [address] [id number] [place] [address] Nov, [facility] [place] [facility] [address] [id number] [place] [address] Nov, [facility] [place] [facility] [address] [id number] [place] [address] Nov, [facility] [address] [id number] [place] [id number] Oct, [facility] [address], [place] [address] Oct, [facility] [address] [address] Oct, [facility] [address], [place] [address] Oct, [facility] [address], [place] [address] Oct, [facility] [address], [place] [address] Oct, [facility] [address], [place] [address] Sep, [facility] [address] [address] Aug, [facility] [address], [place] [address] Jul, [facility] [address], [place] [address] Jul, [facility] [address], [place] [address] Jul, [facility] [address], [place] [address] Jul, [facility] [address] [id number] [address] Jul, IMMUNIZATIONS No Known Immunizations SOCIAL HISTORY Never Assessed REASON FOR VISIT Diabetes--a1c, micro---FRANTZ coleman PLAN OF CARE Activity Details Follow Up 3 Months Reason:DM VITAL SIGNS Height 66 in 2018-03-18 Weight 180.9 lbs 2018-03-18 Temperature 97.6 degrees Fahrenheit 2018-03-18 Heart Rate 85 bpm 2018-03-18 Respiratory Rate 18 2018-03-18 BMI 29.19 kg/m2 2018-03-18 Blood pressure systolic 112 mmHg 2018-03-18 Blood pressure diastolic 64 mmHg 2018-03-18 MEDICATIONS Medication Instructions Dosage Frequency Start Date End Date Duration Status Albuterol Sulfate (2.5 MG/3ML) 0.083% Inhalation up to 6 times per day as needed for shortness of breath/wheezing 3 ml Jan, Active Shingrix 50 mcg Intramuscular 1 IM today and repeat in 2-6 months as directed February, Active Metoprolol Succinate ER 25 MG TAKE 1 TABLET TWICE DAILY 90 Active Glimepiride 4 MG TAKE 1 TABLET DAILY WITH BREAKFAST OR THE FIRST MAIN MEAL OF THE DAY 90 Active Omeprazole 20 MG TAKE 1 CAPSULE EVERY DAY 90 Active Potassium 99 MG Orally Once a day 1 tablet 24h Active Voltaren 1 % Active Lisinopril-Hydrochlorothiazide 10-12.5 MG TAKE 1 TABLET EVERY DAY 90 Active Aspirin 81 mg chew 1 tablet (81 mg) by oral route once daily Oct, Active Fish Oil 1000 MG Orally Twice a day 1 capsule 12h Active Nebulizer/Adult Mask 1 by inhalation route as directed as directed Jan Active Fluoxetine HCl 20 MG TAKE 2 CAPSULES ONE TIME DAILY 90 Active Tricor 145 MG Orally Once a day 1 tablet 24h Active Meloxicam 7.5 MG Orally Once a day 1 tablet-take with food for pain 24h Jan, Active Trulicity 0.75 MG/0.5ML Subcutaneous once weekly 0.5 ml Jul, Active Montelukast Sodium 10 MG Orally Once a day 1 tablet in the evening 24h Active Crestor 20 mg Orally Once a day 1 tablet 24h Oct, 0 days Active Eliquis 5 mg 1 tab(s) po bid Active Incruse Ellipta 62.5 MCG/INH Inhalation Once a day 1 puff 24h Aug, Active Xenical 120 MG Orally Three times a day 1 capsule 8h February, Apr, 30 day(s) Active Allopurinol 300 MG TAKE 1 TABLET TWICE DAILY 90 Active Magnesium Oxide 400 mg Orally Once a day 1 tablet 24h Nov,May 90 days Active Fluticasone Propionate 50 MCG/ACT USE 1 SPRAY IN EACH NOSTRIL TWICE DAILY 90 Active Ventolin HFA 90 mcg/actuation inhale 2 puff by Inhalation route as needed every 6 hours PRN for cough or wheeze Mar, Active Symbicort 160-4.5 MCG/ACT Inhalation Once a day 2 puffs 24h Active Gabapentin 300 MG TAKE 1 CAPSULE TWICE DAILY 90 Active Metformin HCl 500 mg Orally Twice a day 1 tablet with meals 12h 21 Nov, 2017 Active RESULTS No Results PROCEDURES Procedure Date Ordered Result Body Site GLYCATED HEMOGLOBIN TEST March 18, 2018 MICROALBUMIN, SEMIQUANT March 18, 2018 [facility] VISIT ESTABLISHED PATIENT March 18, 2018 LAB NOT BILLED BY [facility] March 18, 2018 INSTRUCTIONS MEDICATIONS ADMINISTERED No Known Medications [...]
--- OUTSIDE RECORDS SUMMARY | 2018-12-17 08:09 | XMS REPORT ---
Author Author ABDIRAHMAN MARIBEL [facility] Address [address] [place] [address] Care Team Providers Care Crystalizer Operator Name Role Phone MARIBEL GARY Unavailable PROBLEMS Type Condition ICD9-CM Code OTA16-FU Code Onset Dates Condition Status SNOMED Code Problem Leg cramps, sleep related G47.62 Active 53865504 Problem Recurrent pneumonia J18.9 Active 469188759 Problem COPD exacerbation J44.1 Active 314788219 Problem Other obesity due to excess calories E66.09 Active 901863028 Problem History of shingles Z86.19 Active 655652009697540 Problem Clostridium difficile diarrhea A04.7 Active 5564372766039 Problem Hypomagnesemia E83.42 Active 601347649 Problem Body mass index (BMI) of 30.0-30.9 in adult Z68.30 Active 159570257 Problem Hyperlipidemia LDL goal <70 E78.5 Active 25180217 Problem Encounter for Zostavax administration Z23 Active 368280938 Problem High triglycerides E78.1 Active 328626993 Problem Arthritis, lumbar spine M47.9 Active 346918466 Problem Diabetes type 2, controlled E11.9 Active 72088238 Problem Hx of assisted use 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 Active 942510653 Problem Controlled type 2 diabetes mellitus without complication, without long -term current use of insulin E11.9 Active 101044729 Problem Essential hypertension with goal blood pressure less than 130\/80 I10 Active 09590255 Problem Hyperlipidemia LDL goal <70 E78.5 Active 78870701 Problem Pure hypercholesterolemia E78.0 Active 247740769 Problem Uncontrolled type 2 diabetes mellitus without complication, without long-term current use of insulin E11.65 Active 135084290 ALLERGIES Substance Reaction Event Type Date Status Lipitor muscle aches Drug Allergy Jan, Active ENCOUNTERS Encounter Location Date Diagnosis [facility] [address] [facility] [id number] [place] [id number] May, [facility] [address] [id number] SPRINGS[place] [address] Apr, [facility] [address] [facility] [id number][place] [id number] Mar, [facility] [address] [facility] [id number], [place] [address] February, [facility] [address] [address] [id number] [place] [id number] February, Diabetes type 2, controlled E11.9 ; Other obesity due to excess calories E66.09 ; Body mass index (BMI) of 30.0-30.9 in adult Z68.30 and History of shingles Z86.19 [facility] [address] [id number] SPRINGS[place] [id number] Jan, Uncontrolled type 2 diabetes mellitus without complication, without long-term current use of insulin E11.65 [facility] [address] [id number] [place] [address] Nov, Hypomagnesemia E83.42 and Uncontrolled type 2 diabetes mellitus without complication, without long-term current use of insulin E11.65 [facility] [address] [id number] SPRINGS[place] [address] Nov, Uncontrolled type 2 diabetes mellitus without complication, without long-term current use of insulin E11.65 ; Hypomagnesemia E83.42 and Hyperlipidemia LDL goal <70 E78.5 [facility] [address] [id number] [place]INGS[place] [id number] Oct, [facility] [address] [facility] [id number], [place] [address] Sep, [facility] [address] [address] [id number] SPRINGS[place] [address] Aug, [facility] [address] [facility] [address] [id number] SPRINGS[place] [address] Aug, Hypomagnesemia E83.[address] [facility] [address] [id number] [place] [address] Aug, Uncontrolled type 2 diabetes mellitus without complication, without long-term current use of insulin E11.65 and Hypomagnesemia E83.[address] [facility] [address] [id number] [place] [address] Aug, [facility] [address] [address] [id number] [place] [address] Jul, COPD exacerbation J44.[address] [facility] [address] [id number] SPRINGS[place] [address] Jul, Clostridium difficile diarrhea A04.[address] [facility] [address] [id number] SPRINGS[place] [address] Jun, [facility] [address] [id number] [place]INGS[place] [address] May, Clostridium difficile diarrhea A04.[address] [facility] [address] [id number] SPRINGS[place] [address] May, Clostridium difficile diarrhea A04.[address] [facility] [address] [id number] [place] [address] May, Hypomagnesemia E83.[address] [facility] [address] [id number] [place]INGS[place] [address] May, Uncontrolled type 2 diabetes mellitus without complication, without long-term current use of insulin E11.65 ; Clostridium difficile diarrhea A04.7 and Hypomagnesemia E83.[address] [facility] [address] [id number] SPRINGS[place] [address] May, [facility] [address] [id number] [place] [address]07[address] May, [facility] [address] [address] [id number] [place] [address] Apr, Clostridium difficile diarrhea A04.7 and Hypomagnesemia E83.[address] [facility] [address] [id number] [place] [address] Apr, [facility] [address] [id number] [place]INGS[place] [address] Apr, High triglycerides E78.[address] [facility] [address] [id number] [place]INGS[place] [address] February, Recurrent pneumonia J18.[address] [facility] [address] [id number] SPRINGS[place] [address]504[address] February, Hypomagnesemia E83.42 [facility] [address] [facility] [id number][place] [address] February, [facility] [address] [address] [id number] SPRINGS[place] [address] February, COPD exacerbation J44.[address] [facility] [address] [id number] [place] [address] February, [facility] [address] [id number] [place] 480[address] Jan, Uncontrolled type 2 diabetes mellitus without complication, without long-term current use of insulin E11.65 and Arthritis, lumbar spine M47.[address] [facility] [address] [id number] SPRINGS, [place] [address]695[address] Dec, [facility] [address] [address] [id number] SPRINGS[place] [address] Dec, [facility] [address] [address] [id number] [place] [address] Oct, [facility] [address] [address] [id number] [place] 175978990 Oct, Uncontrolled type 2 diabetes mellitus without complication, without long-term current use of insulin E11.[address] [facility] [address] [id number] [place]INGS[place] [address] Sep, Uncontrolled type 2 diabetes mellitus without complication, without long-term current use of insulin E11.[address] [facility] [address] [id number] SPRINGS, [place] [address]486[address] Aug, [facility] [address] [id number] [place] [address] Aug, [facility] [address] [facility] [id number], [place] [address]99[address] Aug, [facility] [address] [id number] [place] [id number] Jul, [facility] [address] [id number] [place] 56455[address] Jul, Uncontrolled type 2 diabetes mellitus without complication, without long-term current use of insulin E11.65 ; Encounter for immunization Z23 and Leg cramps, sleep related G47.62 [facility] [address] [id number] [place] [address] May, [facility] [address] [id number] [place] [address] Apr, [facility] [address] [id number] [place] [address]6457[address] Apr, Uncontrolled type 2 diabetes mellitus without complication, without long-term current use of insulin E11.65 and Hyperlipidemia LDL goal <70 E78.5 [facility] [address] [address] [id number] [place] [id number] Mar, [facility] [address] [id number] [place] [address] Mar, [facility] [address] [id number] SPRINGS[place] [id number] Mar, Obstructive chronic bronchitis with exacerbation J44.1 [facility] [address] [facility] [id number], [place] [address] February, [facility] [address] [id number] [place] 50615[address] February, [facility] [address] [facility] [id number], [place] 46203366[address] February, [facility] [address] [id number] [place] [address]343801[address] February, Controlled type 2 diabetes mellitus without complication, without long-term current use of insulin E11.9 [facility] [address] [facility] [id number], [place] [address] February, [address] [id number] [place]INGS[place] [id number] Jan, Pneumonia of both lungs due to infectious organism, unspecified part of lung J18.9 ; Pure hypercholesterolemia E78.0 and Hx of assisted use 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 [id number] SPRINGS[place] 29416[address] Jan, [facility] [address] [id number], [place] [address] Jan, [address] [id number] SPRINGS[place] 936789679 Dec, Arthritis, lumbar spine M47.9 ; Essential hypertension with goal blood pressure less than 130\/80 I10 and Pneumonia of left lower lobe due to infectious organism J18.[address] [id number] [place] [address]32[address] Dec, [address] [id number] [place] 9429213[address] Nov, Arthritis, lumbar spine M47.9 [place] [address]00565100[place], [place] [address] Nov, [place] [address] [id number], [place] [address] Oct, [address] [id number] [place] [address]28570[address] Oct, High triglycerides E78.[address] [id number] SPRINGS[place] 745789213 Oct, Diabetes type 2, controlled E11.9 ; Arthritis, lumbar spine M47.9 and Encounter for Zostavax administration Z23 [facility] [address] [facility] [id number], [place] [address] Sep, [facility] [address] [id number], [place] [address]46 Aug, [facility] [address] [facility] [id number], [place] [address] Aug, [facility] [address] [id number] [place] 122317094 Jul, [facility] [address] [facility] [address] [address] [id number] [place] [id number] Jul, Encounter for immunization Z23 [facility] [address] [id number], [place] [address] Jun, [facility] [address] [facility] [address] [id number] [place] 194136541 Jun, [facility] [address] [id number] [place] 2727060[address] Jun, Diabetes 250.00 ; Interstitial pulmonary disease 515 and DJD ( degenerative joint disease), lumbosacral 722.52 [facility] [address] [id number] SPRINGS[place] [id number] Apr, [facility] [place] [address] [facility] [id number][place] [address]00539[address] Apr, [facility] [address] [id number] [place] [id number] Mar, DJD (degenerative joint disease), lumbosacral 722.52 and Lumbago 724.2 [facility] [address] [id number] SPRINGS, [place] 112633938 February, Lumbago 724.2 and Abnormal x-ray of thoracic spine 793.7 [facility] [address] [id number] SPRINGS[place] 687873040 February, Gout of knee 274.00 ; Lumbago with sciatica 724.3 and Interstitial pulmonary disease 515 [facility] [address] [facility] [address] [id number] [place] 178041588 February, [facility] [address] [facility] [id number], [place] [address] Jan, [facility] [place] [facility] [address] [id number], [place] [address] Jan, [facility] [place] [facility] [address] [facility] [id number], [place] [address]- [address] Dec, [facility] [place] [facility] [address] [facility] [id number], [place] [address]- [address] Dec, [facility] [place] [facility] [address] [id number], [place] [address]- [address]66 Dec, [facility] [address] [id number], [place] [address]- 89[address] Dec, [facility] [place] [facility] [address] [id number], [place] [address]- [address]99 Nov, [facility] [place] [facility] [address] [id number], [place] [address]- [address]57 Nov, [facility] [place] [facility] [address] [id number], [place] [address]- [address] Nov, [facility] [place] [facility] [address] [id number], [place] [address]- 1108 Nov, [facility] [place] [facility] [address] [id number], [place] [address]- [address]128 Nov, [facility] [place] [facility] [address] [id number], [place] [address]- 7329 Nov, [facility] [place] [facility] [id number], [place] [address]- [address] Nov, [facility] [place] [facility] [address] [id number], [place] [address]- [address]83 Nov, [facility] [place] [facility] [address] [id number] [place] [address]- [address]28 Nov, [facility] [place] [facility] [address] [id number] [place] [address]- 8913 Nov, [facility] [place] [facility] [address] [id number] [place] [address]- 8293 Nov, [facility] [place] [facility] [address] [id number] [place] [address]- [address]293 Nov, [facility] [place] [facility] [address] [id number] [place] [address]- 0303 Nov, [facility] [place] [facility] [address] [id number] [place] [address]- 3982 Oct, [facility] [place] [facility] [address] [id number] [place] [address]- 4231 Oct, [facility] [place] [facility] [address] [id number] [place] [address]- 6833 Oct, [facility] [place] [facility] [address] [id number] [place] [address]- 0344 Oct, [facility] [place] [facility] [address] [id number] [place] [address]- 8391 Oct, [facility] [place] [facility] [address] [id number] [place] [address]- 0960 Oct, [facility] [place] [facility] [address] [id number] [place] [address]- 0725 Oct, [facility] [place] [facility] [address] [id number] [place] [address]- 0266 Oct, [facility] [place] [facility] [address] [id number] [place] [address]- 2716 Sep, [facility] [place] [facility] [address] [id number] [place] [address]- 5018 Sep, [facility] [place] [facility] [address] [id number] [place] [address]- 4051 14 Aug, 2014 [facility] [place] [facility] [address] [id number] [place] [address]- 5532 14 Aug, 2014 [facility] [place] [facility] [address] [id number] [place] [address]- 9685 Aug, [facility] [place] [facility] [address] [id number] [place] [address]- 7371 Aug, [facility] [place] [facility] [address] [id number] [place] [address]- 8[address] Jul, [facility] [place] [facility] [address] [id number] [place] [address]- 5212 Jul, [facility] [place] [facility] [address] [id number] [place] [address]- 6825 29 Jun, 2013 [facility] [place] [facility] [address] [id number] [place] [address]- 4333 29 Jun, 2013 [facility] [place] [facility] [address] [id number] [place] [address]- 1323 16 Jun, 2013 [facility] [place] [facility] [address] [id number] [place] [address]- 8771 16 Jun, 2013 [facility] [place] [facility] [address] [id number] [place] [address]- 3678 11 Jun, 2013 [facility] [place] [facility] [address] [id number] [place] [address]- 0769 11 Sep, 2013 [facility] [place] [facility] [address] [id number], [place] [address]- [address] 04 Sep, 2013 [facility] [place] [facility] [address] [id number] [place] [address]- 9496 04 Sep, 2013 [facility] [place] [facility] [address] [id number] [place] [address]- 2414 03 Sep, 2013 [facility] [place] [facility] [address] [id number] [place] [address]- 4280 02 Sep, 2013 [facility] [place] [facility] [address] [id number] [place] [address]- [address] Jun, [facility] [place] [facility] [address] [id number] [place] [address]- 4388 May, [facility] [place] [facility] [address] [id number] [place] [address]- 9999 May, [facility] [place] [facility] [address] [id number] [place] [address]- 5373 Apr, [facility] [place] [facility] [address] [id number] [place] [address]- 6474 Apr, [facility] [place] [facility] [address] [id number] [place] [address]- 8658 Apr, [facility] [place] [facility] [address] [id number] [place] [address]- 2233 Apr, [facility] [place] [facility] [address] [id number] [place] [address]- 6313 Apr, [facility] [place] [facility] [address] [id number] [place] [address]- 9794 Apr, [facility] [place] [facility] [address] [id number] [place] [address]- 7514 Apr, [facility] [place] [facility] [address] [id number] [place] [address]- 4959 Apr, [facility] [place] [facility] [address] [id number] [place] [address]- 4923 Apr, [facility] [place] [facility] [address] [id number] [place] [address]- 0447 Apr, [facility] [place] [facility] [address] [id number] [place] [address]- 6283 Mar, [facility] [place] [facility] [address] [id number] [place] [address]- 1635 Mar, [facility] [place] [facility] [address] [id number] [place] [address]- 6029 Mar, [facility] [place] [facility] [address] [id number] [place] [address]- 5015 Mar, [facility] [place] [facility] [address] [id number] [place] [address]- 8411 Mar, [facility] [place] [facility] [address] [id number] [place] [address]- 7796 Mar, [facility] [place] [facility] [address] [id number] [place] [address]- 5288 Mar, [facility] [place] [facility] [address] [id number] [place] [address]- 0889 Mar, [facility] [place] [facility] [address] [id number] [place] [address]- 3695 Mar, [facility] [place] [facility] [address] [id number] [place] [address]- 6633 Mar, [facility] [place] [facility] [address] [id number] [place] [address]- 7522 Mar, [facility] [place] [facility] [address] [id number] [place] [address]- 5310 Mar, [facility] [place] [facility] [address] [id number] [place] [address]- 1585 Mar, [facility] [place] [facility] [address] [id number], [place] [address]- 9798 Mar, [facility] [place] [facility] [address] [id number], [place] [address]- 3690 Mar, [facility] [place] [facility] [address] [id number] [place] [address]- 4316 Mar, [facility] [place] [facility] [address] [id number] [place] [address]- 1729 February, [facility] [place] [facility] [address] [id number] [place] [address]- 0950 February, [facility] [place] [facility] [address] [id number] [place] [address]- 1144 Jan, [facility] [address] [id number] [place] [address]- 8185 Jan, [facility] [place] [facility] [address] [id number] [place] [address]- 2981 Jan, [facility] [place] [facility] [address] [id number] [place] [address]- 3649 Jan, [facility] [place] [facility] [address] [id number] [place] [address]- 3026 Dec, [facility] [place] [facility] [address] [id number] [place] [address]- 2703 Dec, [facility] [place] [facility] [address] [id number] [place] [address]- 3530 Dec, [facility] [place] [facility] [address] [id number] [place] [address]- 5287 Dec, [facility] [place] [facility] [address] [id number] [place] [address]- 1051 Nov, [facility] [place] [facility] [address] [id number] [place] [address]- 9994 Nov, [facility] [address] [id number] [place] [address]- 5614 Oct, [facility] [place] [facility] [address] [id number] [place] [address]- 6042 Oct, [facility] [place] [facility] [address] [id number] [place] [address]- 4788 Oct, [facility] [place] [facility] [address] [id number] [place] [address]- 9203 Oct, [facility] [place] [facility] [address] [id number] [place] [address]- 2851 Oct, [facility] [place] [facility] [address] [id number] [place] [address]- 6390 Oct, [facility] [address] [id number] [place] [address]- 4606 Jun, [facility] [address] [id number] [place] [address]- 8006 Jun, [facility] [address] [id number] [place] [address] Jun, [facility] [place] [address] [id number] [place] [id number] Jun, [facility] [address] [id number] [place] [address] Apr, [facility] [address] [id number] [place] [address] Apr, [facility] [address] [id number] [place] [address] Apr, [facility] [address] [id number] [place] [address] Apr, [facility] [address] [id number] [place] [address] Mar, [facility] [address] [id number] [place] [address] Mar, [facility] [address] [id number] [place] [address] February, [facility] [address] [id number] [place] [address] Jan, [facility] [place] [facility] [address] [id number] [place] [address] Jan, [facility] [place] [facility] [address] [id number] [place] [address] Jan, [facility] [place] [facility] [address] [id number] [place] [address] Dec, [facility] [place] [facility] [address] [id number] [place] [address] Dec, [facility] [address] [id number] [place] [address] Dec, [facility] [place] [facility] [address] [id number] [place] [address] Nov, [facility] [place] [facility] [address] [id number] [place] [address] Nov, [facility] [place] [facility] [address] [id number] [place] [address] Oct, [facility] [address] [id number] [place] [address] Oct, [facility] [address] [id number] [place] [address] Oct, [facility] [address] [id number] [place] [address] Sep, [facility] [place] [facility] [address] [id number] [place] [address] Sep, [facility] [place] [facility] [address] [id number] [place] [address] Sep, [facility] [place] [facility] [address] [id number] [place] [address]65 Sep, [facility] [address] [id number] [place] [address] Sep, [facility] [place] [facility] [address] [id number] [place] [address] Sep, [facility] [place] [facility] [address] [id number] [place] [address] Sep, [facility] [place] [facility] [address] [id number] [place] [address] Sep, [facility] [place] [facility] [address] [id number] [place] [address] Aug, [facility] [place] [facility] [address] [id number] [place] [address] Aug, [facility] [place] [facility] [address] [id number] [place] [address] Jul, [facility] [place] [facility] [address] [id number] [place] [address] Jul, [facility] [place] [facility] [address] [id number] [place] [address] Jul, [facility] [place] [facility] [address] [id number] [place] [address] 164[address] Jul, [facility] [place] [facility] [address] [id number] [place] [address] 21 Jun, 2012 [facility] [place] [facility] [address] [facility] [id number] [place] [address] 13 Jun, 2012 [facility] [id number] [id number] 13 Jun, 2012 [facility] [address] [place] [id number] [place] [id number] 13 Jun, 2012 [facility] [place] [facility] [id number] [address] 11 Jun, 2012 [facility] [place] [facility] [address] [facility] [id number], [place] [address] 10 Jun, 2012 [facility] [place] [facility] [address] [id number] [address] 08 Jun, 2012 [facility] [place] [facility] [address] [facility] [id number], [place] [address] 05 Jun, 2012 [facility] [place] [facility] [address] [id number] [place] [address] May, [facility] [place] [facility] [address] [facility] [id number] [place] [address] May, [facility] [place] [facility] [address] [id number] [place] [address] May, [facility] [place] [facility] [address] [id number] [place] [address] May, [facility] [address] [id number] [place] [address] May, [facility] [address] [id number] [place] [address] May, [facility] [address] [id number] [place] [id number] May, [facility] [address] [id number] [place] [address] Apr, [facility] [address] [id number] [place] [id number] Apr, [facility] [address] [id number] [place] [address] Apr, [facility] [address] [id number] [place] [address] Apr, [facility] [address] [id number] [place] [address] Apr, [facility] [place] [facility] [address] [id number] [place] [address] Apr, [facility] [address] [id number] [place] [address] Apr, [facility] [place] [facility] [address] [id number] [place] [address] Apr, [facility] [place] [facility] [address] [id number] [place] [address] Apr, [facility] [place] [facility] [address] [id number] [place] [address] Apr, [facility] [place] [facility] [address] [id number] [place] [address] Mar, [facility] [place] [facility] [address] [id number] [place] [address] February, [facility] [place] [facility] [address] [id number] [place] [address] Jan, [facility] [place] [facility] [address] [id number] [place] [address] Dec, [facility] [place] [facility] [address] [id number] [place] [address] Dec, [facility] [address] [id number] [place] [id number] Nov, [facility] [place] [facility] [address] [id number] [place] [address] Nov, [facility] [place] [facility] [address] [id number] [place] [address] Nov, [facility] [place] [facility] [address] [id number] [place] [address] Nov, [facility] [place] [facility] [address] [id number] [place] [address] Nov, [facility] [place] [facility] [address] [id number] [place] [address] Nov, [facility] [place] [facility] [address] [id number] [place] [address] Nov, [facility] [address] [id number] [id number] Oct, [facility] [place] [facility] [address] [id number], [place] [address] Oct, [facility] [place] [facility] [address] [id number] [place] [address] Oct, [facility] [place] [facility] [address] [id number] [place] [address] Oct, [facility] [place] [facility] [address] [id number] [place] [address] Oct, [facility] [place] [facility] [address] [id number], [place] [address] Oct, [facility] [id number], [place] [address] Sep, [facility] [id number], [place] [address] Aug, [facility] [id number], [place] [address] Jul, [facility] [id number], [place] [address] Jul, [facility] [id number] [place] [address] Jul, [facility] [address], [place] [address] Jul, [facility] [id number], [place] [address] Jul, IMMUNIZATIONS No Known Immunizations SOCIAL HISTORY Never Assessed REASON FOR VISIT Diabetes- Pt does not have blood sugar log. [facility] MAL[facility] PLAN OF CARE Activity Details Follow Up 6 Weeks-March 18 or Reason:formal DM visit VITAL SIGNS Height 66 in 2018-01-28 Weight 176.2 lbs 2018-01-28 Temperature 97.1 degrees Fahrenheit 2018-01-28 Heart Rate 71 bpm 2018-01-28 Respiratory Rate 18 2018-01-28 BMI 28.44 kg/m2 2018-01-28 Blood pressure systolic 102 mmHg 2018-01-28 Blood pressure diastolic 68 mmHg 2018-01-28 MEDICATIONS Medication Instructions Dosage Frequency Start Date End Date Duration Status Glimepiride 4 MG TAKE 1 TABLET DAILY WITH BREAKFAST OR THE FIRST MAIN MEAL OF THE DAY 90 Active Fluoxetine HCl 20 MG TAKE 2 CAPSULES ONE TIME DAILY 90 Active Aspirin 81 mg chew 1 tablet (81 mg) by oral route once daily Oct, Active Lisinopril-Hydrochlorothiazide 10-12.5 MG TAKE 1 TABLET EVERY DAY 90 Active Voltaren 1 % Active Nebulizer/Adult Mask 1 by inhalation route as directed as directed Jan Active Symbicort 160-4.5 MCG/ACT Inhalation Once a day 2 puffs 24h Active Albuterol Sulfate (2.5 MG/3ML) 0.083% Inhalation up to 6 times per day as needed for shortness of breath/wheezing 3 ml 20 Jan, 2016 Active Fish Oil 1000 MG Orally Twice a day 1 capsule 12h Active Metoprolol Succinate ER 25 MG TAKE 1 TABLET TWICE DAILY 90 Active Ventolin HFA 90 mcg/actuation inhale 2 puff by Inhalation route as needed every 6 hours PRN for cough or wheeze Mar, Active Meloxicam 7.5 MG Orally Once a day 1 tablet-take with food for pain 24h Jan, Active Potassium 99 MG Orally Once a day 1 tablet 24h Active Montelukast Sodium 10 MG Orally Once a day 1 tablet in the evening 24h Active Magnesium Oxide 400 mg Orally Once a day 1 tablet 24h Nov,May 90 days Active Gabapentin 300 MG TAKE 1 CAPSULE TWICE DAILY 90 Active Omeprazole 20 MG TAKE 1 CAPSULE EVERY DAY 90 Active Trulicity 0.75 MG/0.5ML Subcutaneous once weekly 0.5 ml Jul, Active Eliquis 5 mg 1 tab(s) po bid Active Crestor 20 mg Orally Once a day 1 tablet 24h Oct, 0 days Active Allopurinol 300 MG TAKE 1 TABLET TWICE DAILY 90 Active Incruse Ellipta 62.5 MCG/INH Inhalation Once a day 1 puff 24h Aug, Active Metformin HCl 500 mg Orally Twice a day 1 tablet with meals 12h Nov, Active Tricor 145 MG Orally Once a day 1 tablet 24h Active Fluticasone Propionate 50 MCG/ACT USE 1 SPRAY IN EACH NOSTRIL TWICE DAILY 90 Active RESULTS No Results PROCEDURES Procedure Date Ordered Result Body Site [facility] VISIT ESTABLISHED PATIENT January 28, 2018 INSTRUCTIONS MEDICATIONS ADMINISTERED No Known [...]
--- OUTSIDE RECORDS SUMMARY | 2018-12-17 08:10 | XMS REPORT ---
Author Author PHYLLISJACKIE MARIBEL [facility] Address [address] [place] [address] Care Team Providers Care Principal Law Clerk Name Role Phone MARIBEL GARY Unavailable PROBLEMS Type Condition ICD9-CM Code OJK19-MD Code Onset Dates Condition Status SNOMED Code Problem Controlled type 2 diabetes mellitus without complication, without long -term current use of insulin E11.9 Active 025291211 Problem Hyperlipidemia LDL goal <70 E78.5 Active 83506164 Problem Uncontrolled type 2 diabetes mellitus without complication, without long-term current use of insulin E11.65 Active 908323620 Problem Hyperlipidemia LDL goal <70 E78.5 Active 49621952 Problem Clostridium difficile diarrhea A04.7 Active 5527338897880 Problem COPD exacerbation J44.1 Active 817420586 Problem Leg cramps, sleep related G47.62 Active 86196381 Problem Hypomagnesemia E83.42 Active 207972984 Problem Recurrent pneumonia J18.9 Active 626789242 Problem Arthritis, lumbar spine M47.9 Active 917302484 Problem High triglycerides E78.1 Active 025732556 Problem Essential hypertension with goal blood pressure less than 130\/80 I10 Active 76144221 Problem Diabetes type 2, controlled E11.9 Active 24899740 Problem Hx of technician terminal and 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 use 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 Active 893463425 Problem Encounter for Zostavax administration Z23 Active 265324305 Problem Pure hypercholesterolemia E78.0 Active 905077054 ALLERGIES No Information ENCOUNTERS Encounter Location Date Diagnosis [facility] [address] [id number] [id number] February, [facility] [address] [id number] [address] Jan, Uncontrolled type 2 diabetes mellitus without complication, without long-term current use of insulin E11.65 [facility] [address] [id number] [address] Nov, Hypomagnesemia E83.42 and Uncontrolled type 2 diabetes mellitus without complication, without long-term current use of insulin E11.[address] [facility] [address] [id number], [place] [address] Nov, Uncontrolled type 2 diabetes mellitus without complication, without long-term current use of insulin E11.65 ; Hypomagnesemia E83.42 and Hyperlipidemia LDL goal <[address] [facility] [address] [address] [id number], [place] [address] Oct, [facility] [place] [address] [facility] [id number] [address] Sep, [facility] [address] [address] [id number][place] [id number] Aug, [facility] [address] [address] [id number], [place] [address]69[address] Aug, Hypomagnesemia E83.[address] [facility] [address] [address] [id number], [place] [address] Aug, Uncontrolled type 2 diabetes mellitus without complication, without long-term current use of insulin E11.65 and Hypomagnesemia E83.[address] [facility] [address] [id number] [address] Aug, [facility] [address] [address] [id number][place] [address] Jul, COPD exacerbation J44.[address] [facility] [address] [id number], [place] 149605[address] Jul, Clostridium difficile diarrhea A04.[address] [facility] [address] [id number], [place] [address] Jun, [facility] [address] [address] [id number][place] [address] May, Clostridium difficile diarrhea A04.[address] [facility] [address] [id number] [place] [address] May, Clostridium difficile diarrhea A04.[address] [facility] [address] [id number] [place] [address] May, Hypomagnesemia E83.[address] [facility] [address] [address] [id number], [place] [id number] May, Uncontrolled type 2 diabetes mellitus without complication, without long-term current use of insulin E11.65 ; Clostridium difficile diarrhea A04.7 and Hypomagnesemia E83.[address] [facility] [address] [id number], [place] [address] May, [facility] [address] [address] [id number][place] [id number] May, [facility] [address] [address] [id number], [place] 48[address]170 Apr, Clostridium difficile diarrhea A04.7 and Hypomagnesemia E83.[address] [facility] [address] [id number], [place] [address]195[address] Apr, [facility] [address] [address] [id number][place] [address] Apr, High triglycerides E78.[address] [facility] [address] [address] [id number], [place] [id number] February, Recurrent pneumonia J18.[address] [facility] [address] [address] [id number], [place] [address] February, Hypomagnesemia E83.42 [facility] [place] [address] [facility] [id number][place] [address] February, [facility] [address] [address] [id number], [place] 21093[address]23 February, COPD exacerbation J44.[address] [facility] [address] [id number], [place] 308[address] February, [facility] [address] [address] [id number], [place] 983480514 Jan, Uncontrolled type 2 diabetes mellitus without complication, without long-term current use of insulin E11.65 and Arthritis, lumbar spine M47.[address] [facility] [address] [id number], [place] [id number] Dec, [facility] [address] [address] [id number], [place] [address]20507051 Dec, [facility] [address] [address] [id number], [place] [address]75[address] Oct, [facility] [address] [address] [id number], [place] 605722545 Oct, Uncontrolled type 2 diabetes mellitus without complication, without long-term current use of insulin E11.[address] [facility] [address] [address] [id number], [place] 000428078 Sep, Uncontrolled type 2 diabetes mellitus without complication, without long-term current use of insulin E11.[address] [facility] [address] [id number], [place] 372292139 Aug, [facility] [address] [address] [id number], [place] 001227859 Aug, [facility] [place] [address] [facility] [id number] [place] [address] Aug, [facility] [address] [address] [id number], [place] 1011268[address] Jul, [facility] [address] [address] [id number], [place] 854586128 Jul, Uncontrolled type 2 diabetes mellitus without complication, without long-term current use of insulin E11.65 ; Encounter for immunization Z23 and Leg cramps, sleep related G47.[address] [facility] [address] [id number], [place] [id number] May, [facility] [address] [address] [id number], [place] [address]45882762 Apr, [facility] [address] [address] [id number], [place] 944527062 Apr, Uncontrolled type 2 diabetes mellitus without complication, without long-term current use of insulin E11.65 and Hyperlipidemia LDL goal <70 E78.5 [facility] [address] [id number] [place] [address] Mar, [facility] [address] [id number], [place] [address]77[address] Mar, [facility] [address] [id number], [place] [address]39[address] Mar, Obstructive chronic bronchitis with exacerbation J44.1 [place] [id number] [place] [address] February, [facility] [address] [id number], [place] [id number] February, [place] [id number] [place] [address] February, [facility] [address] [id number], [place] [address]76406186 February, Controlled type 2 diabetes mellitus without complication, without long-term current use of insulin E11.9 [facility] [address]00565100[place], [place] [address] February, [facility] [address] [place] [address] AVE [id number], [place] [id number] Jan, Pneumonia of both lungs due to infectious organism, unspecified part of lung J18.9 ; Pure hypercholesterolemia E78.0 and Hx of penitentiary use 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 [facility] [address] [id number], [place] [id number] Jan, [facility] [address] [id number] 17635838- [address] Jan, [facility] [address] [id number], [place] 436436862 Dec, Arthritis, lumbar spine M47.9 ; Essential hypertension with goal blood pressure less than 130\/80 I10 and Pneumonia of left lower lobe due to infectious organism J18.9 [facility] [address] [id number], [place] [id number] Dec, [facility] [address] [id number], [place] 112520325 Nov, Arthritis, lumbar spine M47.9 [facility] [address]00565100[place] [address] Nov, [facility] [address] [id number], [place] [address] Oct, [facility] [address] [id number], [place] [id number] Oct, High triglycerides E78.1 [facility] [address] [id number], [place] 017360403 Oct, Diabetes type 2, controlled E11.9 ; Arthritis, lumbar spine M47.9 and Encounter for Zostavax administration Z23 [facility] [address] [id number], [place] [address] Sep, [facility] [address] [id number], [place] [address] Aug, [facility] [address]65100[place], [place] [address] Aug, [facility] [address] [id number], [place] 614625541 Jul, [facility] [address] [id number], [place] 902128720 Jul, Encounter for immunization Z23 [facility] [address]00565100[place], [place] 296623- [address] Jun, [facility] [address] [id number], [place] 901395643 Jun, [facility] [address] [id number] [place] [address] Jun, Diabetes 250.00 ; Interstitial pulmonary disease 515 and DJD ( degenerative joint disease), lumbosacral 722.52 [facility] [address] [id number], [place] 453825958 Apr, [facility] [address] [facility] [id number][place] 191792277 Apr, [facility] [address] [id number], [place] 417655961 Mar, DJD (degenerative joint disease), lumbosacral 722.52 and Lumbago 724.2 [facility] [address] [id number], [place] 130076799 February, Lumbago 724.2 and Abnormal x-ray of thoracic spine 793.7 [facility] [address] [facility] [facility] [address] [id number], [place] 393152489 February, Gout of knee 274.00 ; Lumbago with sciatica 724.3 and Interstitial pulmonary disease 515 [facility] [address] [facility] [address] [id number], [place] [id number] February, [facility] [address]00565100[place], [place] 34686187- 4[address] Jan, [facility] [address] [id number] 843628- 8201 Jan, [facility] [address]65100[place], [place] [address]66[place]- [address] Dec, [facility] [address]00565100[place], [place] [address]15001- 1297 Dec, [facility] [address]00565100[place], [place] [address]- 4865 Dec, [facility] [address] [id number] [address]- 7670 Dec, [facility] [address] [place] [address]- [address] Nov, 2014 [facility] [place] [facility] [address] [id number] [place] [address]- [address] Nov, 2014 [facility] [place] [facility] [address] [id number] [place] [address]- 2546 Nov, 2014 [facility] [place] [facility] [address] [id number] [place] [address]- 2508 Nov, 2014 [facility] [place] [facility] [address] [id number] [place] [address]- 2541 Nov, 2014 [facility] [place] [facility] [address] [id number] [place] [address]- 7460 Nov, 2014 [facility] [place] [facility] [address] [facility] [id number] [place] [address]- 9228 Nov, 2014 [facility] [place] [facility] [address] [facility] [id number] [place] [address]- 7336 Nov, 2014 [facility] [place] [facility] [address] [facility] [id number] [place] [address]- 0396 Nov, 2014 [facility] [place] [facility] [address] [facility] [id number] [place] [address]- 0756 Nov, 2014 [facility] [place] [facility] [address] [id number] [place] [address]- 4516 Nov, [facility] [place] [facility] [address] [facility] [id number] [address]- 2544 Nov, 2014 [facility] [place] [facility] [address] [facility] [id number] [place] [address]- 2545 Nov, [facility] [place] [facility] [address] [id number] [address]- 5317 Oct, [facility] [place] [facility] [address] [facility] [id number] [address]- 3978 Oct, [facility] [place] [facility] [address] [facility] [id number][place] [address]- 5767 Oct, [facility] [place] [facility] [address] [id number] [place] [address]- 5585 Oct, [facility] [place] [facility] [address] [id number] [place] [address]- 7208 Oct, [facility] [place] [facility] [address] [facility] [id number] [place] [address]- 6816 Oct, [facility] [place] [facility] [address] [id number] [place] [address]- 6109 Oct, [facility] [place] [facility] [address] [id number] [place] [address]- 9485 Oct, [facility] [place] [facility] [address] [id number] [place] [address]- 3587 Sep, [facility] [place] [facility] [address] [facility] [id number][place] [address]- 0042 Sep, [facility] [place] [facility] [address] [id number] [place] [address]- 9446 Aug, [facility] [place] [facility] [address] [id number] [place] [address]- 6959 Aug, [facility] [place] [facility] [address] [facility] [id number] [place] [address]- 4714 Aug, [facility] [place] [facility] [address] [id number] [address]- 2[address] Aug, [facility] [place] [facility] [address] [id number] [address]- 0544 Jul, [facility] [place] [facility] [address] [id number] [place] [address]- 6747 Jul, [facility] [place] [facility] [address] [facility] [id number][place] [address]- 8873 Jun, [facility] [place] [facility] [address] [id number] [place] [address]- 6114 Jun, [facility] [place] [facility] [address] [id number] [place] [address]- 4373 16 Jun, 2013 [facility] [place] [facility] [address] [id number] [place] [address]- 2176 16 Jun, 2013 [facility] [place] [facility] [address] [id number] [place] [address] 2546 11 Jun, 2013 [facility] [place] [facility] [address] [id number] [place] [address] 2546 11 Jun, 2013 [facility] [place] [facility] [address] [id number] [place] [address] 2543 04 Jun, 2013 [facility] [place] [facility] [address] [id number] [place] [address]- 2308 04 Jun, 2013 [facility] [place] [facility] [address] [id number] [place] [address]- 4071 03 Jun, 2013 [facility] [place] [facility] [address] [id number] [place] [address]- 3232 Jun, 2013 [facility] [place] [facility] [address] [id number] [place] [address]- 2912 Jun, 2013 [facility] [place] [facility] [address] [id number] [place] [address]- 7917 May, [facility] [place] [facility] [address] [id number] [place] [address]- 5409 May, [facility] [place] [facility] [address] [id number] [place] [address]- 5381 Apr, [facility] [place] [facility] [address] [id number] [place] [address]- 6197 Apr, [facility] [place] [facility] [address] [id number] [place] [address]- 4142 Apr, [facility] [place] [facility] [address] [id number] [place] [address]- 7540 Apr, [facility] [place] [facility] [address] [id number] [place] [address]- 0886 Apr, [facility] [place] [facility] [address] [id number] [place] [address]- 4596 Apr, [facility] [place] [facility] [address] [id number] [place] [address]- 2740 Apr, [facility] [place] [facility] [address] [id number] [place] [address]- 6564 Apr, [facility] [place] [facility] [address] [id number] [place] [address]- 7491 Apr, [facility] [place] [facility] [address] [id number] [place] [address]- 5675 Apr, [facility] [place] [facility] [address] [id number] [place] [address]- 5153 Mar, [facility] [place] [facility] [address] [id number] [place] [address]- 8441 Mar, [facility] [place] [facility] [address] [id number] [place] [address]- 0556 Mar, [facility] [place] [facility] [address] [id number] [place] [address]- 1366 Mar, [facility] [place] [facility] [address] [id number] [place] [address]- 9413 Mar, [facility] [place] [facility] [address] [id number] [place] [address]- 8013 Mar, [facility] [place] [facility] [address] [id number] [place] [address]- 8528 Mar, [facility] [place] [facility] [address] [id number] [place] [address]- 8686 Mar, [facility] [place] [facility] [address] [id number] [place] [address]- 3532 Mar, [facility] [place] [facility] [address] [id number] [place] [address]- 6699 Mar, [facility] [place] [facility] [address] [id number] [place] [address]- 9476 Mar, [facility] [place] [facility] [address] [id number] [place] [address]- 5509 Mar, [facility] [place] [facility] [address] [id number] [place] [address]- 4466 Mar, [facility] [place] [facility] [address] [id number] [place] [address]- 5292 Mar, [facility] [place] [facility] [address] [id number] [place] [address]- 6953 Mar, [facility] [place] [facility] [address] [id number] [place] [address]- 9030 Mar, [facility] [place] [facility] [address] [id number] [place] [address]- 6848 February, [facility] [place] [facility] [address] [id number] [place] [address]- 9417 February, [facility] [place] [facility] [address] [id number] [place] [address]- 3412 Jan, [facility] [place] [facility] [address] [id number] [place] [address]- 8313 Jan, [facility] [place] [facility] [address] [id number] [place] [address]- 0801 Jan, [facility] [place] [facility] [address] [id number] [place] [address]- 8195 Jan, [facility] [place] [facility] [address] [id number] [place] [address]- 3548 Dec, [facility] [place] [facility] [address] [id number] [place] [address]- 0675 Dec, [facility] [place] [facility] [address] [id number] [place] [address]- 9751 Dec, [facility] [place] [facility] [address] [id number] [place] [address]- 3961 Dec, [facility] [place] [facility] [address] [id number] [place] [address]- 2513 Nov, [facility] [address] [id number] [place] [address]- 4516 Nov, [facility] [address] [id number] [place] [address]- 1684 Oct, [facility] [address] [id number] [place] [address]- 2957 Oct, [facility] [address] [id number] [place] [address]- 8660 Oct, [facility] [address] [id number] [place] [address]- 1152 Oct, [facility] [address] [id number] [place] [address]- 1062 Oct, [facility] [address] [id number] [place] [address]- 6359 Oct, [facility] [address] [id number] [place] [address]- 1899 Jun, [facility] [address] [id number] [place] [address]- 6916 Jun, [facility] [address] [id number] [place] [address]- 2546 Jun, [facility] [address] [id number] [address] Jun, [facility] [address] [id number] [place] [address]- 2546 Apr, [facility] [place] [facility] [address] [id number] [place] [address]- 5426 Apr, [facility] [address] [id number] [place] [address]- 2546 Apr, [facility] [address] [id number] [place] [address]- 9394 Apr, [facility] [address] [id number] [place] [address]- 0393 Mar, [facility] [address] [id number] [place] [address]- 6156 Mar, [facility] [address] [id number] [place] [address]- 0667 February, [facility] [address] [id number] [place] [address]- 5664 Jan, [facility] [address] [id number] [place] [address]- 2842 Jan, [facility] [address] [id number] [place] [address]- 0968 Jan, [facility] [address] [id number] [place] [address] Dec, [facility] [place] [facility] [address] [id number] [place] [address] Dec, [facility] [address] [id number] [place] [address] Dec, [facility] [place] [facility] [address] [id number] [place] [address] Nov, [facility] [place] [facility] [address] [id number] [place] [address] Nov, [facility] [place] [facility] [address] [id number], [place] [address] Oct, [facility] [place] [facility] [address] [id number] [place] [address] Oct, [facility] [place] [facility] [address] [id number] [place] [address] Oct, [facility] [place] [facility] [address] [id number] [place] [address] Sep, [facility] [place] [facility] [address] [id number] [place] [address] Sep, [facility] [address] [id number] [place] [address] Sep, [facility] [place] [facility] [address] [id number] [place] [address] Sep, [facility] [address] [id number] [place] [address] Sep, [facility] [address] [id number] [place] [address] Sep, [facility] [address] [id number] [place] [address] Sep, [facility] [address] [id number] [place] [address] Sep, [facility] [address] [facility] [id number] [place] [address] Aug, [facility] [address] [id number] [place] [address] Aug, [facility] [address] [facility] [id number] [place] [address] Jul, [facility] [address] [facility] [id number], [place] [address] Jul, [facility] [place] [facility] [address] [facility] [id number] [place] [address] Jul, [facility] [address] [facility] [id number], [place] [address] Jul, [facility] [place] [facility] [address] [facility] [id number] [place] [address] Jun, [facility] [place] [facility] [address] [facility] [id number], [place] [address] Jun, [facility] [address] [id number] [place] [id number] Jun, [facility] [address] [id number] [place] [id number] Jun, 2012 [facility] [address] [id number] [place] [address] 11 Jun, 2012 [facility] [place] [facility] [address] [id number] [place] [address] 10 Jun, 2012 [facility] [address] [id number] [place] [address] 08 Jun, 2012 [facility] [place] [facility] [address] [id number] [place] [address] 05 Jun, 2012 [facility] [address] [id number] [place] [address] May, [facility] [address] [id number] [place] [address] May, [facility] [address] [id number] [place] [address] May, [facility] [address] [id number] [place] [address] May, [facility] [place] [facility] [address] [id number] [place] [address] May, [facility] [address] [id number] [place] [address] May, [facility] [place] [facility] [address] [id number] [id number] May, [facility] [place] [facility] [address] [id number] [place] [address] Apr, [facility] [place] [facility] [address] [id number] [place] [id number] Apr, [facility] [place] [facility] [address] [id number] [place] [address] Apr, [facility] [place] [facility] [address] [id number] [place] [address] Apr, [facility] [place] [facility] [address] [id number] [place] [address] Apr, [facility] [place] [facility] [address] [id number] [place] [address] Apr, [facility] [place] [facility] [address] [id number] [place] [address] Apr, [facility] [place] [facility] [address] [id number] [place] [address] Apr, [facility] [address] [id number] [place] [address] Apr, [facility] [place] [facility] [address] [id number] [place] [address] Apr, [facility] [address] [id number] [place] [address] Mar, [facility] [address] [id number] [place] [address] February, [facility] [address] [id number] [place] [address] Jan, [facility] [address] [id number] [place] [address] Dec, [facility] [place] [facility] [address] [id number] [place] [address] Dec, [facility] [place] [facility] [address] [id number] [id number] Nov, [facility] [place] [facility] [address] [id number] [place] [address] Nov, [facility] [place] [facility] [address] [id number] [place] [address] Nov, [facility] [place] [facility] [address] [id number] [place] [address] Nov, [facility] [place] [facility] [address] [id number], [place] [address] Nov, [facility] [address] [facility] [id number], [place] [address] Nov, [facility] [id number], [place] [address] Nov, [facility] [address] [facility] [id number] [id number] Oct, [facility] [address] [id number], [place] [address] Oct, [facility] [id number], [place] [address] Oct, [facility] [id number], [place] [address] Oct, [facility] [id number], [place] [address] Oct, [facility] [id number], [place] [address] Oct, [facility] [id number], [place] [address] Sep, [facility] [id number], [place] [address] Aug, [facility] [id number], [place] [address] Jul, [facility] [id number], [place] [address] Jul, [facility] [id number], [place] [address] Jul, [facility] [id number], [place] [address] Jul, [facility] [id number], [place] [address] Jul, IMMUNIZATIONS No Known Immunizations SOCIAL HISTORY Never Assessed REASON FOR VISIT stool sample PLAN OF CARE VITAL SIGNS MEDICATIONS Unknown Medications RESULTS No Results PROCEDURES Procedure Date Ordered Result Body Site [facility] 2017 INSTRUCTIONS MEDICATIONS ADMINISTERED No Known Medications MEDICAL [...]
--- OUTSIDE RECORDS SUMMARY | 2018-12-17 08:10 | XMS REPORT ---
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 Name Role Phone MARIBEL GARY Unavailable PROBLEMS Type Condition ICD9-CM Code DQC93-LU Code Onset Dates Condition Status SNOMED Code Problem Controlled type 2 diabetes mellitus without complication, without long -term current use of insulin E11.9 Active 434214104 Problem Hyperlipidemia LDL goal <70 E78.5 Active 91723242 Problem Uncontrolled type 2 diabetes mellitus without complication, without long-term current use of insulin E11.65 Active 811173388 Problem Hyperlipidemia LDL goal <70 E78.5 Active 39345017 Problem Clostridium difficile diarrhea A04.7 Active 5464647987214 Problem COPD exacerbation J44.1 Active 882221006 Problem Leg cramps, sleep related G47.62 Active 39497018 Problem Hypomagnesemia E83.42 Active 681738012 Problem Recurrent pneumonia J18.9 Active 368278413 Problem Arthritis, lumbar spine M47.9 Active 981901199 Problem High triglycerides E78.1 Active 051444542 Problem Essential hypertension with goal blood pressure less than 130\/80 I10 Active 12422839 Problem Diabetes type 2, controlled E11.9 Active 65069440 Problem 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 Active 626566605 Problem Encounter for Zostavax administration Z23 Active 780707407 Problem Pure hypercholesterolemia E78.0 Active 872333827 ALLERGIES No Information ENCOUNTERS Encounter Location Date Diagnosis [facility] [address] [id number][place] [id number] February, [facility] [address] [id number][place] [address] Jan, Uncontrolled type 2 diabetes mellitus without complication, without long-term current use of insulin E11.65 [facility] [address] [id number], [place] [address] Nov, Hypomagnesemia E83.42 and Uncontrolled type 2 diabetes mellitus without complication, without long-term current use of insulin E11.[address] [facility] [address] [id number], [place] [address]88[address] Nov, Uncontrolled type 2 diabetes mellitus without complication, without long-term current use of insulin E11.65 ; Hypomagnesemia E83.42 and Hyperlipidemia LDL goal <[address] [facility] [address] [id number][place] [id number] Oct, [facility] [address] [facility] [id number], [place] [address] Sep, [facility] [address] [address] [id number], [place] [id number] Aug, [facility] [address] [address] [id number], [place] [address] Aug, Hypomagnesemia E83.[address] [facility] [address] [id number], [place] [address]4832 Aug, Uncontrolled type 2 diabetes mellitus without complication, without long-term current use of insulin E11.65 and Hypomagnesemia E83.[address] [facility] [address] [id number], [place] [id number] Aug, [facility] [address] [address] [id number], [place] [address] Jul, COPD exacerbation J44.[address] [facility] [address] [id number], [place] [address] Jul, Clostridium difficile diarrhea A04.[address] [facility] [address] [id number], [place] [address] Jun, [facility] [address] [address] [id number], [place] [address] May, Clostridium difficile diarrhea A04.[address] [facility] [address] [id number] [place] [address] May, Clostridium difficile diarrhea A04.[address] [facility] [address] [id number] [place] [address] May, Hypomagnesemia E83.[address] [facility] [address] [id number], [place] [address]707 May, Uncontrolled type 2 diabetes mellitus without complication, without long-term current use of insulin E11.65 ; Clostridium difficile diarrhea A04.7 and Hypomagnesemia E83.[address] [facility] [address] [id number], [place] [address] May, [facility] [address] [address] [id number], [place] [address] May, [facility] [address] [address] [id number], [place] [address]82 Apr, Clostridium difficile diarrhea A04.7 and Hypomagnesemia E83.[address] [facility] [address] [id number], [place] [address] Apr, [facility] [address] [address] [id number], [place] [address]015[address]196 Apr, High triglycerides E78.[address] [facility] [address] [address] [id number], [place] [address]28745[address] February, Recurrent pneumonia J18.[address] [facility] [address] [id number], [place] [address] February, Hypomagnesemia E83.42 [facility] [address] [facility] [id number], [place] [address] February, [facility] [address] [address] [id number], [place] 667664390 February, COPD exacerbation J44.[address] [facility] [address] [id number], [place] [id number] February, [facility] [address] [address] [id number], [place] [address]6080 Jan, Uncontrolled type 2 diabetes mellitus without complication, without long-term current use of insulin E11.65 and Arthritis, lumbar spine M47.[address] [facility] [address] [id number], [place] 279[address]69 Dec, [facility] [address] [address] [id number], [place] 135170031 Dec, [facility] [address] [address] [id number], [place] [address] Oct, [facility] [address] [address] [id number], [place] [id number] Oct, Uncontrolled type 2 diabetes mellitus without complication, without long-term current use of insulin E11.[address] [facility] [address] [address] [id number], [place] 365385326 Sep, Uncontrolled type 2 diabetes mellitus without complication, without long-term current use of insulin E11.[address] [facility] [address] [id number], [place] 979148528 Aug, [facility] [address] [address] [id number], [place] [id number] Aug, [facility] [address] [facility] [id number] [place] [address] Aug, [facility] [address] [address] [id number], [place] 701[address] Jul, [facility] [address] [address] [id number], [place] 585338839 Jul, Uncontrolled type 2 diabetes mellitus without complication, without long-term current use of insulin E11.65 ; Encounter for immunization Z23 and Leg cramps, sleep related G47.[address] [facility] [address] [address] [id number], [place] [address] May, [facility] [address] [address] [id number], [place] [address]36555666 Apr, [facility] [address] [address] [id number], [place] 772559411 Apr, Uncontrolled type 2 diabetes mellitus without complication, without long-term current use of insulin E11.65 and Hyperlipidemia LDL goal <70 E78.5 [facility] [address] [address] [id number] [place] [address] Mar, [facility] [address] [id number], [place] [address] Mar, [facility] [address] [address] [id number], [place] [address]28 Mar, Obstructive chronic bronchitis with exacerbation J44.1 [place] [address] [address] [id number] [place] [address] February, [facility] [address] [id number], [place] 112[address]653 February, [place] [id number] [place] [address] February, [facility] [address] [id number], [place] [address]206[address] February, Controlled type 2 diabetes mellitus without complication, without long-term current use of insulin E11.9 [facility] [address]00565100[place], [place] [address] February, [facility] [address] [place] [address] AVE [id number], [place] [address]79174611 Jan, Pneumonia of both lungs due to infectious organism, unspecified part of lung J18.9 ; Pure hypercholesterolemia E78.0 and Hx of retirement use 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 [facility] [address] [id number], [place] 454[address]146 Jan, [facility] [address] [id number] 624[address]- 47[address] Jan, [facility] [address] [id number], [place] [id number] Dec, Arthritis, lumbar spine M47.9 ; Essential hypertension with goal blood pressure less than 130\/80 I10 and Pneumonia of left lower lobe due to infectious organism J18.9 [facility] [address] [id number], [place] [address]15221284 Dec, [facility] [address] [address] [id number], [place] 787809139 Nov, Arthritis, lumbar spine M47.9 [facility] [address]00565100[place], [place] [address] Nov, [facility] [address] [id number], [place] [address] Oct, [facility] [address] [address] [id number], [place] 633061046 Oct, High triglycerides E78.1 [facility] [address] [id number], [place] 748034897 Oct, Diabetes type 2, controlled E11.9 ; Arthritis, lumbar spine M47.9 and Encounter for Zostavax administration Z23 [facility] [address] [id number], [place] [address] Sep, [facility] [address] [id number], [place] [address] Aug, [facility] [address]65100[place], [place] [address] Aug, [facility] [address] [address] [id number], [place] 310088177 Jul, [facility] [address] [address] [id number], [place] 073094039 Jul, Encounter for immunization Z23 [facility] [address]65100[place] 880[place]- [address] Jun, [facility] [address] [id number], [place] 432143473 Jun, [facility] [address] [address] [id number] [place] [address] Jun, Diabetes 250.00 ; Interstitial pulmonary disease 515 and DJD ( degenerative joint disease), lumbosacral 722.52 [facility] [address] [address] [id number], [place] 384400383 Apr, [facility] [id number][place] 225358225 Apr, [facility] [address] [address] [id number], [place] 304157738 Mar, DJD (degenerative joint disease), lumbosacral 722.52 and Lumbago 724.2 [facility] [address] [address] [id number], [place] 812434090 February, Lumbago 724.2 and Abnormal x-ray of thoracic spine 793.7 [facility] [address] [facility] [address] [id number], [place] [address]98687245 February, Gout of knee 274.00 ; Lumbago with sciatica 724.3 and Interstitial pulmonary disease 515 [facility] [address] [facility] [address] [id number], [place] [id number] February, [facility] [address]65100[place], [place] 13939544- [address] Jan, [facility] [address] [id number] 140388- [address] Jan, [facility] [address]65100[place], [place] 720453[address] Dec, [facility] [address]00565100[place], [place] [address]759- [address] Dec, [facility] [address]00565100[place], [place] [address] Dec, [facility] [address] [id number], [place] [address] Dec, [facility] [address] [place] [address]- 269[address] Nov, 2014 [facility] [place] [facility] [address] [id number] [place] [address]- [address]86 Nov, 2014 [facility] [place] [facility] [address] [id number] [place] [address]- 2546 Nov, 2014 [facility] [place] [facility] [address] [id number] [place] [address]- 8563 Nov, 2014 [facility] [place] [facility] [address] [id number] [place] [address]- 2545 Nov, 2014 [facility] [place] [facility] [address] [id number] [place] [address]- 1089 Nov, 2014 [facility] [place] [facility] [address] [facility] [id number] [place] [address]- 7000 Nov, 2014 [facility] [place] [facility] [address] [facility] [id number] [place] [address]- 6411 Nov, 2014 [facility] [place] [facility] [address] [facility] [id number] [place] [address]- 3619 Nov, 2014 [facility] [place] [facility] [address] [facility] [id number] [place] [address]- 3701 Nov, 2014 [facility] [place] [facility] [address] [id number] [place] [address]- 8611 Nov, [facility] [place] [facility] [address] [facility] [id number], [place] [address]- 2547 Nov, 2014 [facility] [place] [facility] [address] [facility] [id number] [place] [address]- 2541 Nov, [facility] [place] [facility] [address] [id number], [place] [address]- 9083 Oct, [facility] [place] [facility] [address] [facility] [id number], [place] [address]- 4266 Oct, [facility] [place] [facility] [address] [facility] [id number], [place] [address]- 6189 Oct, [facility] [place] [facility] [address] [id number] [place] [address]- 4995 Oct, [facility] [place] [facility] [address] [id number] [place] [address]- 4555 Oct, [facility] [place] [facility] [address] [facility] [id number] [place] [address]- 3586 Oct, [facility] [place] [facility] [address] [id number] [place] [address]- 0422 Oct, [facility] [place] [facility] [address] [id number] [place] [address]- 3801 Oct, [facility] [place] [facility] [address] [id number] [place] [address]- 0920 Sep, [facility] [place] [facility] [address] [facility] [id number], [place] [address]- 4[address] Sep, [facility] [place] [facility] [address] [id number] [place] [address]- 2273 Aug, [facility] [place] [facility] [address] [id number] [place] [address]- 8173 Aug, [facility] [place] [facility] [address] [facility] [id number] [place] [address]- 4447 Aug, [facility] [place] [facility] [address] [id number], [place] [address]- 2192 Aug, [facility] [place] [facility] [address] [id number], [place] [address]- 8913 Jul, [facility] [place] [facility] [address] [id number] [place] [address]- 2150 Jul, [facility] [place] [facility] [address] [facility] [id number], [place] [address]- 8265 Jun, [facility] [place] [facility] [address] [id number] [place] [address]- 0075 Jun, [facility] [place] [facility] [address] [id number] [place] [address]- 3504 16 Jun, 2013 [facility] [place] [facility] [address] [id number] [place] [address]- 6116 16 Jun, 2013 [facility] [place] [facility] [address] [id number] [place] [address] 2546 11 Jun, 2013 [facility] [place] [facility] [address] [id number] [place] [address] 2546 11 Jun, 2013 [facility] [place] [facility] [address] [id number] [place] [address] 2547 04 Jun, 2013 [facility] [place] [facility] [address] [id number] [place] [address]- 6904 04 Jun, 2013 [facility] [place] [facility] [address] [id number] [place] [address]- 0246 03 Jun, 2013 [facility] [place] [facility] [address] [id number] [place] [address]- 7979 Jun, 2013 [facility] [place] [facility] [address] [id number] [place] [address]- 7828 Jun, 2013 [facility] [place] [facility] [address] [id number] [place] [address]- 7398 May, [facility] [place] [facility] [address] [id number] [place] [address]- 4296 May, [facility] [place] [facility] [address] [id number] [place] [address]- 6461 Apr, [facility] [place] [facility] [address] [id number] [place] [address]- 5278 Apr, [facility] [place] [facility] [address] [id number] [place] [address]- 3659 Apr, [facility] [place] [facility] [address] [id number] [place] [address]- 2874 Apr, [facility] [place] [facility] [address] [id number] [place] [address]- 7742 Apr, [facility] [place] [facility] [address] [id number] [place] [address]- 1939 Apr, [facility] [place] [facility] [address] [id number] [place] [address]- 4992 Apr, [facility] [place] [facility] [address] [id number] [place] [address]- 5748 Apr, [facility] [place] [facility] [address] [id number] [place] [address]- 5487 Apr, [facility] [place] [facility] [address] [id number] [place] [address]- 9607 Apr, [facility] [place] [facility] [address] [id number] [place] [address]- 0678 Mar, [facility] [place] [facility] [address] [id number] [place] [address]- 3640 Mar, [facility] [place] [facility] [address] [id number] [place] [address]- 4634 Mar, [facility] [place] [facility] [address] [id number] [place] [address]- 3852 Mar, [facility] [place] [facility] [address] [id number] [place] [address]- 0406 Mar, [facility] [place] [facility] [address] [id number] [place] [address]- 6619 Mar, [facility] [place] [facility] [address] [id number] [place] [address]- 0687 Mar, [facility] [place] [facility] [address] [id number] [place] [address]- 3206 Mar, [facility] [place] [facility] [address] [id number] [place] [address]- 9982 Mar, [facility] [place] [facility] [address] [id number] [place] [address]- 6267 Mar, [facility] [place] [facility] [address] [id number] [place] [address]- 2339 Mar, [facility] [place] [facility] [address] [id number] [place] [address]- 3048 Mar, [facility] [place] [facility] [address] [id number] [place] [address]- 8333 Mar, [facility] [place] [facility] [address] [id number] [place] [address]- 7975 Mar, [facility] [place] [facility] [address] [id number] [place] [address]- 6216 Mar, [facility] [place] [facility] [address] [id number] [place] [address]- 8017 Mar, [facility] [place] [facility] [address] [id number] [place] [address]- 6972 February, [facility] [place] [facility] [address] [id number] [place] [address]- 0131 February, [facility] [place] [facility] [address] [id number] [place] [address]- 7689 Jan, [facility] [place] [facility] [address] [id number] [place] [address]- 9390 Jan, [facility] [place] [facility] [address] [id number] [place] [address]- 2319 Jan, [facility] [place] [facility] [address] [id number] [place] [address]- 5015 Jan, [facility] [place] [facility] [address] [id number] [place] [address]- 8356 Dec, [facility] [place] [facility] [address] [id number] [place] [address]- 8796 Dec, [facility] [place] [facility] [address] [id number] [place] [address]- 9962 Dec, [facility] [place] [facility] [address] [id number] [place] [address]- 2146 Dec, [facility] [place] [facility] [address] [id number] [place] [address]- 6159 Nov, [facility] [address] [id number] [place] [address]- 5376 Nov, [facility] [address] [id number] [place] [address]- 1981 Oct, [facility] [address] [id number] [place] [address]- 4040 Oct, [facility] [address] [id number] [place] [address]- 3688 Oct, [facility] [address] [id number] [place] [address]- 5348 Oct, [facility] [address] [id number] [place] [address]- 2623 Oct, [facility] [address] [id number] [place] [address]- 0885 Oct, [facility] [address] [id number] [place] [address]- 8900 Jun, [facility] [address] [id number] [place] [address]- 4746 Jun, [facility] [address] [id number] [place] [address]- 2546 Jun, [facility] [address] [id number][place] [id number] Jun, [facility] [address] [id number] [place] [address]- 2546 Apr, [facility] [place] [facility] [address] [id number] [place] [address]- 2556 Apr, [facility] [address] [id number] [place] [address]- 2546 Apr, [facility] [address] [id number] [place] [address]- 2794 Apr, [facility] [address] [id number] [place] [address]- 4533 Mar, [facility] [address] [id number] [place] [address]- 4456 Mar, [facility] [address] [id number] [place] [address]- 4836 February, [facility] [address] [id number] [place] [address] Jan, [facility] [address] [id number] [place] [address] Jan, [facility] [address] [id number] [place] [address] Jan, [facility] [address] [id number] [place] [address] Dec, [facility] [place] [facility] [address] [id number] [place] [address] Dec, [facility] [address] [id number] [place] [address] Dec, [facility] [place] [facility] [address] [id number] [place] [address] Nov, [facility] [place] [facility] [address] [id number] [place] [address] Nov, [facility] [place] [facility] [address] [id number], [place] [address] Oct, [facility] [place] [facility] [address] [id number] [place] [address] Oct, [facility] [place] [facility] [address] [id number] [place] [address] Oct, [facility] [place] [facility] [address] [id number] [place] [address] Sep, [facility] [place] [facility] [address] [id number] [place] [address] Sep, [facility] [address] [id number] [place] [address] Sep, [facility] [place] [facility] [address] [id number] [place] [address] Sep, [facility] [address] [id number] [place] [address] Sep, [facility] [address] [id number] [place] [address] Sep, [facility] [address] [id number] [place] [address] Sep, [facility] [address] [id number] [place] [address] Sep, [facility] [address] [facility] [id number] [place] [address] Aug, [facility] [address] [id number] [place] [address] Aug, [facility] [address] [facility] [id number] [place] [address] Jul, [facility] [address] [facility] [id number], [place] [address] Jul, [facility] [place] [facility] [address] [facility] [id number] [place] [address] Jul, [facility] [address] [facility] [id number], [place] [address] Jul, [facility] [place] [facility] [address] [facility] [id number] [place] [address] Jun, [facility] [place] [facility] [address] [facility] [id number], [place] [address] Jun, [facility] [address] [id number] [id number] Jun, [facility] [address] [id number] [place] [id number] 13 Jun, 2012 [facility] [address] [id number] [place] [address] 11 Jun, 2012 [facility] [place] [facility] [address] [id number] [place] [address] 10 Jun, 2012 [facility] [address] [id number] [place] [address] 08 Jun, 2012 [facility] [place] [facility] [address] [id number] [place] [address] 05 Jun, 2012 [facility] [address] [id number] [place] [address] May, [facility] [address] [id number] [place] [address] May, [facility] [address] [id number] [place] [address] May, [facility] [address] [id number] [place] [address] May, [facility] [place] [facility] [address] [id number] [place] [address] May, [facility] [address] [id number] [place] [address] May, [facility] [place] [facility] [address] [id number] [id number] May, [facility] [place] [facility] [address] [id number] [place] [address] Apr, [facility] [place] [facility] [address] [id number] [place] [id number] Apr, [facility] [place] [facility] [address] [id number] [place] [address] Apr, [facility] [place] [facility] [address] [id number] [place] [address] Apr, [facility] [place] [facility] [address] [id number] [place] [address] Apr, [facility] [place] [facility] [address] [id number] [place] [address] Apr, [facility] [place] [facility] [address] [id number] [place] [address] Apr, [facility] [place] [facility] [address] [id number] [place] [address] Apr, [facility] [address] [id number] [place] [address] Apr, [facility] [place] [facility] [address] [id number] [place] [address] Apr, [facility] [address] [id number] [place] [address] Mar, [facility] [address] [id number] [place] [address] February, [facility] [address] [id number] [place] [address] Jan, [facility] [address] [id number] [place] [address] Dec, [facility] [place] [facility] [address] [id number] [place] [address] Dec, [facility] [place] [facility] [address] [id number] [id number] Nov, [facility] [place] [facility] [address] [id number] [place] [address] Nov, [facility] [place] [facility] [address] [id number] [place] [address] Nov, [facility] [place] [facility] [address] [id number] [place] [address] Nov, [facility] [place] [facility] [address] [id number], [place] [address] Nov, [facility] [address] [facility] [id number], [place] [address] Nov, [facility] [id number], [place] [address] Nov, [facility] [address] [facility] [id number] [id number] Oct, [facility] [address] [id number], [place] [address] Oct, [facility] [id number], [place] [address] Oct, [facility] [id number], [place] [address] Oct, [facility] [id number], [place] [address] Oct, [facility] [id number], [place] [address] Oct, [facility] [id number], [place] [address] Sep, [facility] [id number], [place] [address] Aug, [facility] [id number], [place] [address] Jul, [facility] [id number], [place] [address] Jul, [facility] [id number], [place] [address] Jul, [facility] [id number], [place] [address] Jul, [facility] [id number], [place] [address] Jul, IMMUNIZATIONS No Known Immunizations SOCIAL HISTORY [...]
--- OUTSIDE RECORDS SUMMARY | 2018-12-17 08:11 | XMS REPORT ---
Author Author PHYLLISJACKIE MARIBEL [facility] Address [address] [place] [address] Care Team Providers Care Inspector Fabric Name Role Phone MARIBEL GARY Unavailable PROBLEMS Type Condition ICD9-CM Code PQE48-OW Code Onset Dates Condition Status SNOMED Code Problem Leg cramps, sleep related G47.62 Active 88177530 Problem Recurrent pneumonia J18.9 Active 684703878 Problem COPD exacerbation J44.1 Active 253016476 Problem Other obesity due to excess calories E66.09 Active 356112440 Problem History of shingles Z86.19 Active 970432137301636 Problem Clostridium difficile diarrhea A04.7 Active 6067830460635 Problem Hypomagnesemia E83.42 Active 105926436 Problem Body mass index (BMI) of 30.0-30.9 in adult Z68.30 Active 745054320 Problem Hyperlipidemia LDL goal <70 E78.5 Active 32923386 Problem Encounter for Zostavax administration Z23 Active 009502981 Problem High triglycerides E78.1 Active 571703817 Problem Arthritis, lumbar spine M47.9 Active 700784776 Problem Diabetes type 2, controlled E11.9 Active 94060349 Problem Hx of senior care use 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 Active 618464746 Problem Controlled type 2 diabetes mellitus without complication, without long -term current use of insulin E11.9 Active 410937420 Problem Essential hypertension with goal blood pressure less than 130\/80 I10 Active 41361085 Problem Hyperlipidemia LDL goal <70 E78.5 Active 12229491 Problem Pure hypercholesterolemia E78.0 Active 966716299 Problem Uncontrolled type 2 diabetes mellitus without complication, without long-term current use of insulin E11.65 Active 143124325 ALLERGIES No Information ENCOUNTERS Encounter Location Date Diagnosis [facility] [address] [facility] [id number] [place] [id number] Mar, [facility] [address] [facility] [id number], [place] [address] February, [facility] [address] [id number][place] [address] February, Diabetes type 2, controlled E11.9 ; Other obesity due to excess calories E66.09 ; Body mass index (BMI) of 30.0-30.9 in adult Z68.30 and History of shingles Z86.19 [facility] [address] [id number][place] [address] Jan, Uncontrolled type 2 diabetes mellitus without complication, without long-term current use of insulin E11.65 [facility] [employer] [id number][place] [address] Nov, Hypomagnesemia E83.42 and Uncontrolled type 2 diabetes mellitus without complication, without long-term current use of insulin E11.65 [facility] [employer] [place] [address] AVE [id number], [place] [address] Nov, Uncontrolled type 2 diabetes mellitus without complication, without long-term current use of insulin E11.65 ; Hypomagnesemia E83.42 and Hyperlipidemia LDL goal <70 E78.5 [facility] [employer] [id number], [place] [address] Oct, [facility] [address] [facility] [id number], [place] [address] Sep, [facility] [address] [address] [id number], [place] [address] Aug, [facility] [address] [id number], [place] [address] Aug, Hypomagnesemia E83.42 [facility] [employer] [id number], [place] [address] Aug, Uncontrolled type 2 diabetes mellitus without complication, without long-term current use of insulin E11.65 and Hypomagnesemia E83.42 [facility] [employer] [id number], [place] [address] Aug, [facility] [address] [id number][place] [address] Jul, COPD exacerbation J44.[address] [facility] [address] [address] [id number], [place] [address] Jul, Clostridium difficile diarrhea A04.[address] [facility] [address] [address] [id number], [place] [address] Jun, [facility] [address] [id number], [place] [address] May, Clostridium difficile diarrhea A04.[address] [facility] [address] [address] [id number], [place] [address] May, Clostridium difficile diarrhea A04.[address] [facility] [address] [address] [id number], [place] [address] May, Hypomagnesemia E83.[address] [facility] [address] [address] [id number], [place] [address] May, Uncontrolled type 2 diabetes mellitus without complication, without long-term current use of insulin E11.65 ; Clostridium difficile diarrhea A04.7 and Hypomagnesemia E83.[address] [facility] [address] [address] [id number], [place] [address] May, [facility] [address] [id number], [place] [address] May, [facility] [address] [id number], [place] [address] Apr, Clostridium difficile diarrhea A04.7 and Hypomagnesemia E83.[address] [facility] [address] [address] [id number], [place] [address] Apr, [facility] [address] [id number], [place] [address] Apr, High triglycerides E78.[address] [facility] [address] [address] [id number], [place] [address] February, Recurrent pneumonia J18.[address] [facility] [address] [address] [id number] [place] [address] February, Hypomagnesemia E83.42 [facility] [address] [facility] [id number] [place] [address] February, [facility] [address] [id number], [place] [address]95 February, COPD exacerbation J44.[address] [facility] [address] [address] [id number], [place] [address] February, [facility] [address] [id number], [place] [address] Jan, Uncontrolled type 2 diabetes mellitus without complication, without long-term current use of insulin E11.65 and Arthritis, lumbar spine M47.[address] [facility] [address] [address] [id number], [place] 412[address]680 Dec, [facility] [address] [id number], [place] [address] Dec, [facility] [address] [id number], [place] [address] Oct, [facility] [address] [id number], [place] [address] Oct, Uncontrolled type 2 diabetes mellitus without complication, without long-term current use of insulin E11.[address] [facility] [address] [address] [id number], [place] [address] Sep, Uncontrolled type 2 diabetes mellitus without complication, without long-term current use of insulin E11.[address] [facility] [address] [address] [id number], [place] [address]375580[address] Aug, [facility] [address] [id number], [place] 279[address] Aug, [facility] [address] [facility] [id number], [place] [address] Aug, [facility] [address] [id number] [place] [address]34[address] Jul, [facility] [address] [id number], [place] [address]88[address] Jul, Uncontrolled type 2 diabetes mellitus without complication, without long-term current use of insulin E11.65 ; Encounter for immunization Z23 and Leg cramps, sleep related G47.[address] [facility] [address] [address] [id number], [place] [address] May, [facility] [address] [id number], [place] [address]3297[address] Apr, [facility] [address] [address] [id number], [place] [address]76[address]96[address] Apr, Uncontrolled type 2 diabetes mellitus without complication, without long-term current use of insulin E11.65 and Hyperlipidemia LDL goal <70 E78.[address] [facility] [address] [address] [id number], [place] [address] Mar, [facility] [address] [address] [id number], [place] 601[address] Mar, [facility] [address] [address] [id number], [place] [address]89414063 Mar, Obstructive chronic bronchitis with exacerbation J44.1 [facility] [address] [facility] [id number], [place] [address] February, [facility] [address] [id number], [place] [address]108[address] February, [facility] [address] [facility] [id number], [place] [address] February, [facility] [address] [address] [id number], [place] 299138525 February, Controlled type 2 diabetes mellitus without complication, without long-term current use of insulin E11.9 [facility] [address] [facility] [id number], [place] 84901231- [address] February, [facility] [address] [address] [id number], [place] [address]2383840 Jan, Pneumonia of both lungs due to infectious organism, unspecified part of lung J18.9 ; Pure hypercholesterolemia E78.0 and 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 [facility] [address] [id number], [place] [address]395[address] Jan, [facility] [id number] [place] [address] Jan, [address] [id number], [place] [address]15[address] Dec, Arthritis, lumbar spine M47.9 ; Essential hypertension with goal blood pressure less than 130\/80 I10 and Pneumonia of left lower lobe due to infectious organism J18.[address] [id number], [place] 84[address] Dec, [address] [id number], [place] 005750197 Nov, Arthritis, lumbar spine M47.9 [place] [facility] [id number] [place] [address] Nov, [facility] [id number] [place] [address] 99[address] Oct, [address] [id number], [place] 894561056 Oct, High triglycerides E78.[address] [id number], [place] 342038781 14 Oct, 2015 Diabetes type 2, controlled E11.9 ; Arthritis, lumbar spine M47.9 and Encounter for Zostavax administration Z23 [facility] [address] [place] [address]- 6874 Sep, [facility] [id number] [place] [address]56- 8338 Aug, [facility] [address] [facility] [id number], [place] [address] Aug, [facility] [address] [address] [id number], [place] 380249926 Jul, [facility] [address] [id number], [place] 285664252 Jul, Encounter for immunization Z23 [facility] [address] [id number], [place] [address] Jun, [facility] [address] [id number], [place] 251304109 Jun, [facility] [address] [id number], [place] 792599382 Jun, Diabetes 250.00 ; Interstitial pulmonary disease 515 and DJD ( degenerative joint disease), lumbosacral 722.52 [facility] [address] [id number], [place] [id number] Apr, [facility] [address] [id number] [place] [address] Apr, [facility] [address] [address] [id number], [place] 530261632 Mar, DJD (degenerative joint disease), lumbosacral 722.52 and Lumbago 724.2 [facility] [address] [id number], [place] 394275282 February, Lumbago 724.2 and Abnormal x-ray of thoracic spine 793.7 [facility] [address] [id number], [place] 158669439 February, Gout of knee 274.00 ; Lumbago with sciatica 724.3 and Interstitial pulmonary disease 515 [facility] [address] [id number], [place] 074306901 February, [facility] [address] [facility] [id number], [place] [address] 2546 Jan, [facility] [place] [facility] [address] [id number] [place] [address]- 1793 Jan, [facility] [place] [facility] [address] [id number] [place] [address]- 6[address] Dec, [facility] [place] [facility] [address] [id number] [place] [address]- 7046 Dec, [facility] [place] [facility] [address] [id number] [place] [address]- 4436 Dec, [facility] [place] [facility] [address] [id number] [place] [address]- 5683 Dec, [facility] [place] [facility] [address] [id number] [place] [address]- 4095 Nov, 2014 [facility] [place] [facility] [address] [facility] [id number] [place] [address]- 5871 Nov, 2014 [facility] [place] [facility] [address] [facility] [id number] [place] [address]- 6589 Nov, 2014 [facility] [place] [facility] [address] [facility] [id number] [place] [address]- 7085 18 Nov, 2014 [facility] [place] [facility] [address] [facility] [id number] [place] [address]- 7671 Nov, 2014 [facility] [place] [facility] [address] [facility] [id number] [place] [address]- 1422 17 Nov, 2014 [facility] [place] [facility] [address] [facility] [id number] [place] [address]- 6911 13 Nov, 2014 [facility] [place] [facility] [address] [facility] [id number] [place] [address]- 5889 13 Nov, 2014 [facility] [place] [facility] [address] [facility] [id number] [place] [address]- 4751 12 Nov, 2014 [facility] [place] [facility] [address] [facility] [id number] [place] [address]- 0521 11 Nov, 2014 [facility] [place] [facility] [address] [facility] [id number] [place] [address]- 9725 11 Nov, 2014 [facility] [address] [id number] [place] [address]- 0505 Nov, [facility] [place] [facility] [address] [id number] [place] [address]- 2511 Nov, [facility] [address] [id number] [place] [address]- 6223 Oct, [facility] [place] [facility] [address] [id number] [place] [address]- 7540 Oct, [facility] [address] [id number] [place] [address]- 2803 Oct, [facility] [address] [id number] [place] [address]- 3568 Oct, [facility] [address] [id number] [place] [address]- 1613 Oct, [facility] [address] [id number] [place] [address]- 4292 Oct, [facility] [address] [id number] [place] [address]- 5724 Oct, [facility] [address] [id number] [place] [address]- 9885 Oct, [facility] [address] [id number] [place] [address]- 0280 Sep, [facility] [place] [facility] [address] [id number] [place] [address]- 0519 Sep, [facility] [place] [facility] [address] [id number] [place] [address]- 4957 Aug, [facility] [place] [facility] [address] [id number] [place] [address]- 5694 Aug, [facility] [place] [facility] [address] [id number] [place] [address]- 2022 Aug, [facility] [place] [facility] [address] [id number] [place] [address]- 1186 Aug, [facility] [place] [facility] [address] [id number] [place] [address]- 1799 Jul, [facility] [place] [facility] [address] [id number] [place] [address]- 1925 Jul, [facility] [place] [facility] [address] [id number] [place] [address]- 7999 29 Jun, 2013 [facility] [place] [facility] [address] [id number] [place] [address]- 1899 29 Jun, 2013 [facility] [place] [facility] [address] [id number] [place] [address]- 9242 16 Jun, 2013 [facility] [place] [facility] [address] [id number] [place] [address]- 1227 16 Jun, 2013 [facility] [place] [facility] [address] [id number] [place] [address]- 2680 Jun, 2013 [facility] [place] [facility] [address] [id number] [place] [address]- 9816 11 Jun, 2014 [facility] [place] [facility] [address] [id number] [place] [address]- 6786 04 Jun, 2014 [facility] [place] [facility] [address] [id number], [place] [address]- 6949 04 Jun, 2013 [facility] [place] [facility] [address] [id number], [place] [address]- 8477 03 Jun, 2013 [facility] [place] [facility] [address] [id number] [place] [address]- 5292 02 Jun, 2013 [facility] [place] [facility] [address] [id number] [place] [address]- 9571 02 Jun, 2013 [facility] [place] [facility] [address] [id number], [place] [address]- 8919 May, [facility] [place] [facility] [address] [id number], [place] [address]- 2146 May, [facility] [place] [facility] [address] [id number] [place] [address]- 7481 Apr, [facility] [place] [facility] [address] [id number] [place] [address]- 5050 Apr, [facility] [place] [facility] [address] [id number] [place] [address]- 6571 Apr, [facility] [place] [facility] [address] [id number] [place] [address]- 8661 Apr, [facility] [place] [facility] [address] [id number] [place] [address]- 6776 Apr, [facility] [place] [facility] [address] [id number] [place] [address]- 1213 Apr, [facility] [place] [facility] [address] [id number] [place] [address]- 3262 Apr, [facility] [place] [facility] [address] [id number] [place] [address]- 7300 Apr, [facility] [place] [facility] [address] [id number] [place] [address]- 7962 Apr, [facility] [place] [facility] [address] [id number] [place] [address]- 8519 Apr, [facility] [place] [facility] [address] [id number] [place] [address]- 3132 Mar, [facility] [place] [facility] [address] [id number] [place] [address]- 0225 Mar, [facility] [place] [facility] [address] [id number] [place] [address]- 3826 Mar, [facility] [place] [facility] [address] [id number] [place] [address]- 7161 Mar, [facility] [place] [facility] [address] [id number] [place] [address]- 3328 Mar, [facility] [place] [facility] [address] [id number] [place] [address]- 8299 Mar, [facility] [place] [facility] [address] [id number] [place] [address]- 8033 Mar, [facility] [place] [facility] [address] [id number] [place] [address]- 3690 Mar, [facility] [place] [facility] [address] [id number] [place] [address]- 4339 Mar, [facility] [place] [facility] [address] [id number] [place] [address]- 9789 Mar, [facility] [place] [facility] [address] [id number] [place] [address]- 1128 Mar, [facility] [place] [facility] [address] [id number] [place] [address]- 0542 Mar, [facility] [place] [facility] [address] [id number] [place] [address]- 9264 Mar, [facility] [place] [facility] [address] [id number] [place] [address]- 8042 Mar, [facility] [place] [facility] [address] [id number] [place] [address]- 7323 Mar, [facility] [place] [facility] [address] [id number] [place] [address]- 3791 Mar, [facility] [place] [facility] [address] [id number] [place] [address]- 0081 February, [facility] [place] [facility] [address] [id number] [place] [address]- 7161 February, [facility] [place] [facility] [address] [id number] [place] [address]- 1179 Jan, [facility] [place] [facility] [address] [id number] [place] [address]- 7921 Jan, [facility] [place] [facility] [address] [id number] [place] [address]- 1838 Jan, [facility] [place] [facility] [address] [id number] [place] [address]- 2277 Jan, [facility] [place] [facility] [address] [id number] [place] [address]- 2934 Dec, [facility] [place] [facility] [address] [id number] [place] [address]- 7651 Dec, [facility] [place] [facility] [address] [id number] [place] [address]- 3426 Dec, [facility] [place] [facility] [address] [id number] [place] [address]- 2294 Dec, [facility] [place] [facility] [address] [id number] [place] [address]- 5894 Nov, [facility] [place] [facility] [address] [id number] [place] [address]- 8516 Nov, [facility] [place] [facility] [address] [id number] [place] [address]- 9013 Oct, [facility] [place] [facility] [address] [id number] [place] [address]- 9126 Oct, [facility] [place] [facility] [address] [id number] [place] [address]- 9899 Oct, [facility] [place] [facility] [address] [id number] [place] [address]- 1255 Oct, [facility] [place] [facility] [address] [id number] [place] [address]- 9128 Oct, [facility] [place] [facility] [address] [id number] [place] [address]- 0879 Oct, [facility] [place] [facility] [address] [id number] [place] [address]- 2931 30 Jun, 2013 [facility] [place] [facility] [address] [id number] [place] [address]- 7190 Jun, [facility] [place] [facility] [address] [facility] [id number] [place] [address]- 6776 Jun, [facility] [address] [id number] [place] [id number] Jun, [facility] [address] [facility] [id number] [place] [address]- 6559 Apr, [facility] [address] [id number] [place] [place] [address] Apr, [facility] [address] [facility] [id number] [place] [address] Apr, [facility] [address] [id number] [place] [address] Apr, [facility] [address] [id number] [place] [address] Mar, [facility] [id number] [address] Mar, [facility] [address] [id number] [place] [address] February, [facility] [address] [id number] [place] [address] Jan, [facility] [address] [id number] [address] Jan, [facility] [address] [facility] [id number], [place] [address] Jan, [facility] [address] [facility] [id number], [place] [address] Dec, [facility] [address] [id number], [place] [address] Dec, [facility] [place] [facility] [address] [facility] [id number], [place] [address] Dec, [facility] [address] [id number], [place] [address] Nov, [facility] [address] [id number] [place] [address] Nov, [facility] [place] [facility] [address] [id number] [place] [address] Oct, [facility] [place] [facility] [address] [id number] [place] [address] Oct, [facility] [place] [facility] [address] [id number] [place] [address] Oct, [facility] [place] [facility] [address] [id number] [place] [address] Sep, [facility] [place] [facility] [address] [id number] [place] [address] Sep, [facility] [place] [facility] [address] [id number] [place] [address] Sep, [facility] [place] [facility] [address] [id number] [place] [address] Sep, [facility] [facility] [address] [id number] [place] [address] Sep, [facility] [place] [facility] [address] [id number] [place] [address] Sep, [facility] [facility] [address] [id number] [place] [address] Sep, [facility] [place] [facility] [address] [id number] [place] [address] Sep, [facility] [place] [facility] [address] [id number] [place] [address] Aug, [facility] [place] [facility] [address] [id number] [place] [address] Aug, [facility] [place] [facility] [address] [id number] [place] [address] Jul, [facility] [place] [facility] [address] [id number] [place] [address] Jul, [facility] [place] [facility] [address] [id number] [place] [address] Jul, [facility] [place] [facility] [address] [id number] [place] [address] Jul, [facility] [place] [facility] [address] [id number] [place] [address] 21 Jun, 2012 [facility] [place] [facility] [address] [id number] [place] [address] 13 Jun, 2012 [facility] [address] [id number] [place] [id number] 13 Jun, 2012 [facility] [address] [id number] [place] [id number] 13 Jun, 2012 [facility] [place] [facility] [address] [id number] [place] [address] 11 Jun, 2012 [facility] [place] [facility] [address] [id number], [place] [address] 10 Jun, 2012 [facility] [place] [facility] [address] [id number] [place] [address] 08 Jun, 2012 [facility] [place] [facility] [address] [id number], [place] [address] 05 Jun, 2012 [facility] [place] [facility] [address] [facility] [id number], [place] [address] 31 May, 2012 [facility] [place] [facility] [address] [id number], [place] [address] 30 May, 2012 [facility] [place] [facility] [address] [id number] [place] [address] May, [facility] [place] [facility] [address] [id number] [place] [address] 17 May, 2012 [facility] [place] [facility] [address] [id number] [place] [address] 16 May, 2012 [facility] [place] [facility] [address] [id number], [place] [address] May, [facility] [place] [facility] [address] [id number] [place] [id number] May, [facility] [place] [facility] [address] [id number] [place] [address] Apr, [facility] [place] [facility] [address] [id number] [place] [id number] Apr, [facility] [place] [facility] [address] [id number] [place] [address] Apr, [facility] [place] [facility] [address] [id number] [place] [address] Apr, [facility] [place] [facility] [address] [id number] [place] [address] Apr, [facility] [place] [facility] [address] [id number] [place] [address] Apr, [facility] [place] [facility] [address] [id number] [place] [address] Apr, [facility] [place] [facility] [address] [id number] [place] [address] Apr, [facility] [place] [facility] [address] [id number] [place] [address] Apr, [facility] [place] [facility] [address] [id number], [place] [address] Apr, [facility] [place] [facility] [address] [id number], [place] [address] Mar, [facility] [place] [facility] [address] [id number] [place] [address] February, [facility] [place] [facility] [address] [id number] [place] [address] Jan, [facility] [place] [facility] [address] [id number] [place] [address] Dec, [facility] [place] [facility] [address] [id number] [place] [address] Dec, [facility] [place] [facility] [address] [id number] [place] [id number] Nov, [facility] [place] [facility] [address] [id number] [place] [address] Nov, [facility] [place] [facility] [address] [id number] [place] [address] Nov, [facility] [place] [facility] [address] [id number] [place] [address] Nov, [facility] [place] [facility] [address] [id number] [place] [address] Nov, [facility] [place] [facility] [address] [id number] [place] [address] Nov, [facility] [place] [facility] [address] [id number] [place] [address] Nov, [facility] [place] [facility] [address] [id number] [place] [id number] Oct, [facility] [place] [facility] [address] [id number] [place] [address] Oct, [facility] [place] [facility] [address] [id number] [place] [address] Oct, [facility] [place] [facility] [address] [id number] [place] [address] Oct, [facility] [place] [facility] [address] [id number] [place] [address] Oct, [facility] [place] [facility] [address] [id number] [place] [address] Oct, [facility] [place] [facility] [address] [id number] [place] [address] Sep, [facility] [place] [facility] [address] [id number] [place] [address] Aug, [facility] [address] [facility] [id number] [place] [address] Jul, [facility] [address] [facility] [id number], [place] [address] Jul, [facility] [address] [facility] [id number], [place] [address] Jul, [facility] [address] [facility] [id number], [place] [address] Jul, [facility] [address] [facility] [id number], [place] [address] Jul, IMMUNIZATIONS No Known Immunizations SOCIAL HISTORY Never Assessed REASON FOR VISIT results PLAN OF CARE VITAL SIGNS MEDICATIONS Medication Instructions Dosage Frequency Start Date End Date Duration Status Magnesium Oxide 400 mg Orally Once a day 1 tablet 24h Nov,May 90 days Active RESULTS No Results PROCEDURES No Known [...]
--- OUTSIDE RECORDS SUMMARY | 2018-12-17 08:12 | XMS REPORT ---
Author Author FRANCES PACHECO [facility] Address [address] [place] [address] Care Team Providers [facility] Technical Lead Senior Developer Name Role Phone FRANCES PACHECO Unavailable PROBLEMS Type Condition ICD9-CM Code SWY74-AK Code Onset Dates Condition Status SNOMED Code Problem Leg cramps, sleep related G47.62 Active 51045661 Problem Recurrent pneumonia J18.9 Active 912635329 Problem COPD exacerbation J44.1 Active 229703360 Problem Other obesity due to excess calories E66.09 Active 122344653 Problem History of shingles Z86.19 Active 449909510828771 Problem Clostridium difficile diarrhea A04.7 Active 4018127077579 Problem Hypomagnesemia E83.42 Active 186269280 Problem Body mass index (BMI) of 30.0-30.9 in adult Z68.30 Active 057330833 Problem Hyperlipidemia LDL goal <70 E78.5 Active 76956217 Problem Encounter for Zostavax administration Z23 Active 268119950 Problem High triglycerides E78.1 Active 436454665 Problem Arthritis, lumbar spine M47.9 Active 385606068 Problem Diabetes type 2, controlled E11.9 Active 94300910 Problem 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 Active 628092177 Problem Controlled type 2 diabetes mellitus without complication, without long -term current use of insulin E11.9 Active 551707045 Problem Essential hypertension with goal blood pressure less than 130\/80 I10 Active 89324991 Problem Hyperlipidemia LDL goal <70 E78.5 Active 85321804 Problem Pure hypercholesterolemia E78.0 Active 974567225 Problem Uncontrolled type 2 diabetes mellitus without complication, without long-term current use of insulin E11.65 Active 675595799 ALLERGIES No Information ENCOUNTERS Encounter Location Date Diagnosis [facility] [address] [facility] [id number], [place] [address] February, [facility] [address] [id number][place] [address] February, Diabetes type 2, controlled E11.9 ; Other obesity due to excess calories E66.09 ; Body mass index (BMI) of 30.0-30.9 in adult Z68.30 and History of shingles Z86.[address] [facility] [address] [id number][place] [address] Jan, Uncontrolled type 2 diabetes mellitus without complication, without long-term current use of insulin E11.[address] [facility] [address] [id number][place] [address] Nov, Hypomagnesemia E83.42 and Uncontrolled type 2 diabetes mellitus without complication, without long-term current use of insulin E11.[address] [facility] [address] [id number][place] [address] Nov, Uncontrolled type 2 diabetes mellitus without complication, without long-term current use of insulin E11.65 ; Hypomagnesemia E83.42 and Hyperlipidemia LDL goal <[address] [facility] [address] [id number], [place] [id number] Oct, [facility] [address] [facility] [id number], [place] [address] Sep, [facility] [address] [id number], [place] [id number] Aug, [facility] [address] [id number], [place] [address] Aug, Hypomagnesemia E83.42 [facility] [address] [id number], [place] [address] Aug, Uncontrolled type 2 diabetes mellitus without complication, without long-term current use of insulin E11.65 and Hypomagnesemia E83.[address] [facility] [address] [id number][place] [address] Aug, [facility] [address] [id number][place] [address] Jul, COPD exacerbation J44.[address] [facility] [address] [id number], [place] [address] Jul, Clostridium difficile diarrhea A04.[address] [facility] [address] [id number] [place] [address] Jun, [facility] [address] [id number][place] [address] May, Clostridium difficile diarrhea A04.[address] [facility] [address] [id number][place] [address] May, Clostridium difficile diarrhea A04.[address] [facility] [address] [id number][place] [address] May, Hypomagnesemia E83.[address] [facility] [address] [id number], [place] 283604341 May, Uncontrolled type 2 diabetes mellitus without complication, without long-term current use of insulin E11.65 ; Clostridium difficile diarrhea A04.7 and Hypomagnesemia E83.[address] [facility] [address] [id number], [place] [address] May, [facility] [address] [id number][place] [address] May, [facility] [address] [id number][place] [address] Apr, Clostridium difficile diarrhea A04.7 and Hypomagnesemia E83.[address] [facility] [address] [id number], [place] [address] Apr, [facility] [address] [id number], [place] [address] Apr, High triglycerides E78.[address] [facility] [address] [id number], [place] 288[address]397 February, Recurrent pneumonia J18.[address] [facility] [address] [id number] [place] [address] February, Hypomagnesemia E83.42 [facility] [address] [facility] [id number], [place] [address] February, [facility] [address] [id number] [place] [address] February, COPD exacerbation J44.[address] [facility] [address] [id number] [place] [address] February, [facility] [address] [id number] [place] [address] Jan, Uncontrolled type 2 diabetes mellitus without complication, without long-term current use of insulin E11.65 and Arthritis, lumbar spine M47.[address] [facility] [address] [id number], [place] [address] Dec, [facility] [address] [id number], [place] [address] Dec, [facility] [address] [id number], [place] [address] Oct, [facility] [address] [id number], [place] [address] Oct, Uncontrolled type 2 diabetes mellitus without complication, without long-term current use of insulin E11.[address] [facility] [address] [id number] [place] [address] Sep, Uncontrolled type 2 diabetes mellitus without complication, without long-term current use of insulin E11.[address] [facility] [address] [id number] [place] [address]80[address] Aug, [facility] [address] [id number] [place] [address]78[address] Aug, [facility] [address] [facility] [id number] [place] [address] Aug, [facility] [address] [id number], [place] [address] Jul, [facility] [address] [id number], [place] [address]1659230[address] Jul, Uncontrolled type 2 diabetes mellitus without complication, without long-term current use of insulin E11.65 ; Encounter for immunization Z23 and Leg cramps, sleep related G47.[address] [facility] [address] [id number], [place] 43645[address] May, [facility] [address] [id number], [place] 126958686 Apr, [facility] [address] [id number], [place] 146336563 Apr, Uncontrolled type 2 diabetes mellitus without complication, without long-term current use of insulin E11.65 and Hyperlipidemia LDL goal <70 E78.5 [facility] [address] [id number], [place] 45358[address] Mar, [facility] [address] [id number], [place] 313[address] Mar, [facility] [address] [id number], [place] [id number] Mar, Obstructive chronic bronchitis with exacerbation J44.1 [facility] [address] [id number], [place] [address] February, [facility] [address] [id number], [place] [id number] February, [facility] [address] [id number], [place] 24988402- [address] February, [facility] [address] [id number], [place] 779336776 February, Controlled type 2 diabetes mellitus without complication, without long-term current use of insulin E11.9 [facility] [address] [facility] [id number], [place] 06176502[place] [address] February, [facility] [address] [id number], [place] 366666259 Jan, Pneumonia of both lungs due to infectious organism, unspecified part of lung J18.9 ; Pure hypercholesterolemia E78.0 and 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 [address] [address] [id number], [place] [address]87[address]383 Dec, Arthritis, lumbar spine M47.9 ; Essential hypertension with goal blood pressure less than 130\/80 I10 and Pneumonia of left lower lobe due to infectious organism J18.9 [facility] [address] [address] [id number], [place] [address]220[address] Dec, [facility] [address] [facility] [address] [id number], [place] [id number] Nov, Arthritis, lumbar spine M47.9 [facility] [address] [place] [address] Nov, [facility] [id number] [place] [address] 8188 Oct, [facility] [address] [facility] [address] [id number], [place] 395489854 Oct, High triglycerides E78.1 [facility] [address] [place] [address] AVE [id number], [place] 920492904 Oct, Diabetes type 2, controlled E11.9 ; Arthritis, lumbar spine M47.9 and Encounter for Zostavax administration Z23 [facility] [id number] [place] [address]- 5931 Sep, [facility] [id number] [place] [address]- 3481 Aug, [facility] [id number] [place] [address]- 2540 Aug, [facility] [address] [id number], [place] [address] Jul, [facility] [address] [id number], [place] 475611566 Jul, Encounter for immunization Z23 [facility] [address] [facility] [id number], [place] [address]6909062- 3775 Jun, [facility] [address] [id number], [place] 375511458 Jun, [facility] [address] [id number], [place] 107584554 Jun, Diabetes 250.00 ; Interstitial pulmonary disease 515 and DJD ( degenerative joint disease), lumbosacral 722.52 [facility] [address] [id number], [place] [address] Apr, [facility] [address] [id number] [address] Apr, [facility] [address] [id number], [place] 917140719 Mar, DJD (degenerative joint disease), lumbosacral 722.52 and Lumbago 724.2 [facility] [address] [id number], [place] 658389344 February, Lumbago 724.2 and Abnormal x-ray of thoracic spine 793.7 [facility] [address] [id number], [place] 109552318 February, Gout of knee 274.00 ; Lumbago with sciatica 724.3 and Interstitial pulmonary disease 515 [facility] [address] [id number], [place] 300974316 February, [facility] [address] [facility] [id number], [place] [address] Jan, [facility] [address] [facility] [id number], [place] [address]- [address] Jan, [facility] [place] [facility] [address] [id number] [place] [address]- 3120 Dec, [facility] [place] [facility] [address] [id number] [place] [address]- 4193 Dec, [facility] [place] [facility] [address] [facility] [id number] [place] [address]- 9263 Dec, [facility] [place] [facility] [address] [facility] [id number] [place] [address]- 9682 Dec, [facility] [place] [facility] [address] [id number] [place] [address]- 0246 Nov, [facility] [place] [facility] [address] [facility] [id number] [place] [address]- 6581 Nov, 2014 [facility] [place] [facility] [address] [facility] [id number] [place] [address]- 3761 18 Nov, 2014 [facility] [place] [facility] [address] [facility] [id number] [place] [address]- 5269 18 Nov, 2014 [facility] [place] [facility] [address] [facility] [id number] [place] [address]- 2034 17 Nov, 2014 [facility] [place] [facility] [address] [facility] [id number] [place] [address]- 5779 17 Nov, 2014 [facility] [place] [facility] [address] [facility] [id number] [place] [address]- 2680 13 Nov, 2014 [facility] [place] [facility] [address] [facility] [id number] [place] [address]- 1482 13 Nov, 2014 [facility] [place] [facility] [address] [facility] [id number] [place] [address]- 7044 12 Nov, 2014 [facility] [place] [facility] [address] [facility] [id number] [place] [address]- 7228 11 Nov, 2014 [facility] [place] [facility] [address] [facility] [id number] [place] [address]- 9826 11 Nov, 2014 [facility] [place] [facility] [address] [id number] [place] [address]- 4244 Nov, [facility] [place] [facility] [address] [id number] [place] [address]- 2001 Nov, [facility] [place] [facility] [address] [id number] [place] [address]- 4733 Oct, [facility] [place] [facility] [address] [id number] [place] [address]- 0827 Oct, [facility] [place] [facility] [address] [id number] [place] [address]- 0773 Oct, [facility] [place] [facility] [address] [id number] [place] [address]- 2798 Oct, [facility] [place] [facility] [address] [id number] [place] [address]- 7547 Oct, [facility] [place] [facility] [address] [id number] [place] [address]- 9270 Oct, [facility] [place] [facility] [address] [id number] [place] [address]- 3516 Oct, [facility] [place] [facility] [address] [id number] [place] [address]- 8298 Oct, [facility] [place] [facility] [address] [id number] [place] [address]- 9016 Sep, [facility] [place] [facility] [address] [id number] [place] [address]- 1530 Sep, [facility] [place] [facility] [address] [id number] [place] [address]- 7825 Aug, [facility] [place] [facility] [address] [id number] [place] [address]- 6893 Aug, [facility] [place] [facility] [address] [id number] [place] [address]- 8986 Aug, [facility] [place] [facility] [address] [id number] [place] [address]- 1390 Aug, [facility] [place] [facility] [address] [id number] [place] [address]- 7668 Jul, [facility] [place] [facility] [address] [id number] [place] [address]- 6891 Jul, [facility] [place] [facility] [address] [id number] [place] [address]- 0554 29 Jun, 2013 [facility] [place] [facility] [address] [id number] [place] [address]- 8394 29 Jun, 2013 [facility] [place] [facility] [address] [id number] [place] [address]- 3427 16 Jun, 2013 [facility] [place] [facility] [address] [id number] [place] [address]- 2209 16 Jun, 2013 [facility] [place] [facility] [address] [id number] [place] [address]- 9577 Jun, 2013 [facility] [place] [facility] [address] [id number] [place] [address]- 0292 11 Jun, 2013 [facility] [place] [facility] [address] [id number] [place] [address]- 1039 04 Jun, 2013 [facility] [place] [facility] [address] [id number] [place] [address]- 8850 04 Jun, 2013 [facility] [place] [facility] [address] [id number] [place] [address]- 6389 03 Jun, 2013 [facility] [place] [facility] [address] [id number], [place] [address]- 6723 Jun, 2013 [facility] [place] [facility] [address] [id number] [place] [address]- 0751 Jun, 2013 [facility] [place] [facility] [address] [id number] [place] [address]- 1928 May, [facility] [place] [facility] [address] [id number] [place] [address]- 4479 May, [facility] [place] [facility] [address] [id number] [place] [address]- 5545 Apr, [facility] [place] [facility] [address] [id number] [place] [address]- 0049 Apr, [facility] [place] [facility] [address] [id number] [place] [address]- 9322 Apr, [facility] [place] [facility] [address] [id number] [place] [address]- 2955 Apr, [facility] [place] [facility] [address] [id number] [place] [address]- 4871 Apr, [facility] [place] [facility] [address] [id number] [place] [address]- 0386 Apr, [facility] [place] [facility] [address] [id number] [place] [address]- 7319 Apr, [facility] [place] [facility] [address] [id number] [place] [address]- 5989 Apr, [facility] [place] [facility] [address] [id number] [place] [address]- 4602 Apr, [facility] [place] [facility] [address] [id number] [place] [address]- 4276 Apr, [facility] [place] [facility] [address] [id number] [place] [address]- 1617 Mar, [facility] [place] [facility] [address] [id number] [place] [address]- 1054 Mar, [facility] [place] [facility] [address] [id number] [place] [address]- 7262 Mar, [facility] [place] [facility] [address] [id number] [place] [address]- 7358 Mar, [facility] [place] [facility] [address] [id number] [place] [address]- 6251 Mar, [facility] [place] [facility] [address] [id number] [place] [address]- 0570 Mar, [facility] [place] [facility] [address] [id number] [place] [address]- 3712 Mar, [facility] [place] [facility] [address] [id number] [place] [address]- 5105 Mar, [facility] [place] [facility] [address] [id number] [place] [address]- 7074 Mar, [facility] [place] [facility] [address] [id number] [place] [address]- 8896 Mar, [facility] [place] [facility] [address] [id number] [place] [address]- 7760 Mar, [facility] [place] [facility] [address] [id number] [place] [address]- 0239 Mar, [facility] [place] [facility] [address] [id number] [place] [address]- 2883 Mar, [facility] [place] [facility] [address] [id number] [place] [address]- 1404 Mar, [facility] [place] [facility] [address] [id number] [place] [address]- 5082 Mar, [facility] [place] [facility] [address] [id number] [place] [address]- 6370 Mar, [facility] [place] [facility] [address] [id number] [place] [address]- 5381 February, [facility] [place] [facility] [address] [id number] [place] [address]- 2923 February, [facility] [place] [facility] [address] [id number] [place] [address]- 7099 Jan, [facility] [place] [facility] [address] [id number] [place] [address]- 5900 Jan, [facility] [place] [facility] [address] [id number] [place] [address]- 0994 Jan, [facility] [place] [facility] [address] [id number], [place] [address]- 9913 Jan, [facility] [address] [id number] [place] [address]- 9985 Dec, [facility] [address] [id number] [place] [address]- 4348 Dec, [facility] [address] [facility] [id number] [place] [address]- 0815 Dec, [facility] [address] [id number] [place] [address]- 5858 Dec, [facility] [address] [id number] [place] [address]- 1310 Nov, [facility] [address] [facility] [id number] [place] [address]- 7632 Nov, [facility] [address] [facility] [id number] [place] [address]- 6910 Oct, [facility] [address] [id number] [place] [address]- 9058 Oct, [facility] [address] [facility] [id number] [place] [address]- 4871 Oct, [facility] [address] [facility] [id number] [place] [address]- 5645 Oct, [facility] [address] [facility] [id number] [place] [address]- 1028 Oct, [facility] [address] [id number], [place] [address]- 4384 Oct, [facility] [address] [facility] [id number] [place] [address]- 9308 30 Jun, 2013 [facility] [address] [facility] [id number] [place] [address]- 7421 Jun, [facility] [address] [facility] [id number] [place] [address]- 0298 Jun, [facility] [address] [id number] [place] [id number] Jun, [facility] [address] [id number] [place] [address]- 6631 Apr, [facility] [address] [id number] [place] [address]- 8251 Apr, [facility] [address] [id number] [place] [address]- 5412 Apr, [facility] [address] [id number] [place] [address] Apr, [facility] [address] [id number] [place] [address] Mar, [facility] [address] [id number] [place] [address] Mar, [facility] [address] [id number] [place] [address] February, [facility] [address] [id number] [place] [address] Jan, [facility] [address] [id number] [place] [address] Jan, [facility] [address] [id number] [place] [address] Jan, [facility] [address] [id number] [place] [address] Dec, [facility] [address] [id number] [place] [address] Dec, [facility] [address] [id number] [place] [address] Dec, [facility] [address] [id number] [place] [address] Nov, [facility] [address] [id number] [place] [address] Nov, [facility] [place] [facility] [address] [id number] [place] [address] Oct, [facility] [place] [facility] [address] [id number] [place] [address] Oct, [facility] [place] [facility] [address] [id number] [place] [address] Oct, [facility] [place] [facility] [address] [id number] [place] [address] Sep, [facility] [place] [facility] [address] [id number] [place] [address] Sep, [facility] [place] [facility] [address] [id number] [place] [address] Sep, [facility] [place] [facility] [address] [id number] [place] [address] Sep, [facility] [place] [facility] [address] [id number] [place] [address] Sep, [facility] [place] [facility] [address] [id number] [place] [address] Sep, [facility] [place] [facility] [address] [id number] [place] [address] Sep, [facility] [place] [facility] [address] [id number] [place] [address] Sep, [facility] [place] [facility] [address] [id number], [place] [address] Aug, [facility] [place] [facility] [address] [id number] [place] [address] Aug, [facility] [place] [facility] [address] [id number] [place] [address] Jul, [facility] [place] [facility] [address] [id number] [place] [address] Jul, [facility] [place] [facility] [address] [id number], [place] [address] Jul, [facility] [place] [facility] [address] [id number], [place] [address] Jul, [facility] [place] [facility] [address] [id number], [place] [address] 21 Jun, 2012 [facility] [place] [facility] [address] [id number], [place] [address] 13 Jun, 2012 [facility] [address] [facility] [id number] [place] [id number] 13 Jun, 2012 [facility] [address] [id number] [id number] 13 Jun, 2012 [facility] [place] [facility] [address] [id number] [place] [address]- [address] 11 Jun, 2012 [facility] [place] [facility] [id number], [place] [address] 10 Jun, 2012 [facility] [place] [facility] [address] [id number], [place] [address] 08 Jun, 2012 [facility] [place] [facility] [address] [id number], [place] [address] 05 Jun, 2012 [facility] [place] [facility] [id number], [place] [address] 31 May, 2012 [facility] [place] [facility] [id number], [place] [address] 30 May, 2012 [facility] [place] [facility] [address] [id number], [place] [address] 23 May, 2012 [facility] [place] [facility] [address] [facility] [id number], [place] [address] 17 May, 2012 [facility] [place] [facility] [address] [facility] [facility] [id number], [place] [address] 16 May, 2012 [facility] [place] [facility] [address] [facility] [id number], [place] [address] 08 May, 2012 [facility] [place] [facility] [address] [id number] [place] [id number] May, [facility] [place] [facility] [address] [id number] [place] [address] Apr, [facility] [address] [id number] [place] [id number] Apr, [facility] [place] [facility] [address] [id number] [place] [address] Apr, [facility] [place] [facility] [address] [id number] [place] [address] Apr, [facility] [place] [facility] [address] [id number] [place] [address] Apr, [facility] [place] [facility] [address] [id number] [place] [address] Apr, [facility] [place] [facility] [address] [id number] [place] [address] Apr, [facility] [place] [facility] [address] [id number] [place] [address] Apr, [facility] [place] [facility] [address] [id number] [place] [address] Apr, [facility] [place] [facility] [address] [id number] [place] [address] Apr, [facility] [place] [facility] [address] [id number] [place] [address] Mar, [facility] [place] [facility] [address] [id number] [place] [address] February, [facility] [place] [facility] [address] [id number] [place] [address] Jan, [facility] [place] [facility] [address] [id number] [place] [address] Dec, [facility] [place] [facility] [address] [id number] [place] [address] Dec, [facility] [place] [facility] [address] [id number] [place] [id number] Nov, [facility] [place] [facility] [address] [id number] [place] [address] Nov, [facility] [place] [facility] [address] [id number] [place] [address] Nov, [facility] [place] [facility] [address] [id number] [place] [address] Nov, [facility] [place] [facility] [address] [id number] [place] [address] Nov, [facility] [place] [facility] [address] [id number] [place] [address] Nov, [facility] [place] [facility] [address] [id number] [place] [address] Nov, [facility] [place] [facility] [address] [id number] [place] [id number] Oct, [facility] [place] [facility] [address] [id number] [place] [address] Oct, [facility] [place] [facility] [address] [id number] [place] [address] Oct, [facility] [place] [facility] [address] [id number] [place] [address] Oct, [facility] [place] [facility] [address] [id number] [place] [address] Oct, [facility] [place] [facility] [address] [id number] [place] [address] Oct, [facility] [place] [facility] [address] [id number] [place] [address] Sep, [facility] [place] [facility] [address] [id number] [place] [address] Aug, [facility] [place] [facility] [address] [id number] [place] [address] Jul, [facility] [address] [facility] [id number] [place] [address] Jul, [facility] [address] [facility] [id number] [place] [address] Jul, [facility] [address] [facility] [id number] [place] [address] Jul, [facility] [address] [facility] [id number] [place] [address] Jul, IMMUNIZATIONS No Known Immunizations SOCIAL HISTORY Never Assessed REASON FOR VISIT Pals received PLAN OF CARE VITAL SIGNS MEDICATIONS Unknown [...]
--- OUTSIDE RECORDS SUMMARY | 2018-12-17 08:13 | XMS REPORT ---
Author Author PHYLLISJACKIE MARIBEL [facility] Address [address] [place] [address] Care Team Providers Care Technology Services Manager Name Role Phone MARIBEL GARY Unavailable PROBLEMS Type Condition ICD9-CM Code YGO20-US Code Onset Dates Condition Status SNOMED Code Problem Controlled type 2 diabetes mellitus without complication, without long -term current use of insulin E11.9 Active 059368292 Problem Hyperlipidemia LDL goal <70 E78.5 Active 10275553 Problem Uncontrolled type 2 diabetes mellitus without complication, without long-term current use of insulin E11.65 Active 158743104 Problem Hyperlipidemia LDL goal <70 E78.5 Active 95068311 Problem Clostridium difficile diarrhea A04.7 Active [id number] Problem COPD exacerbation J44.1 Active 775723497 Problem Leg cramps, sleep related G47.62 Active 40890641 Problem Hypomagnesemia E83.42 Active 952522448 Problem Recurrent pneumonia J18.9 Active 886514402 Problem Arthritis, lumbar spine M47.9 Active 153561953 Problem High triglycerides E78.1 Active 585741167 Problem Essential hypertension with goal blood pressure less than 130\/80 I10 Active 21090990 Problem Diabetes type 2, controlled E11.9 Active 80196655 Problem Hx of oysterman use 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 Active 956445675 Problem Encounter for Zostavax administration Z23 Active 024665638 Problem Pure hypercholesterolemia E78.0 Active 601863435 ALLERGIES No Information ENCOUNTERS Encounter Location Date Diagnosis [facility] [address] [id number][place] [id number] Jan, [facility] [address] [id number][place] [id number] Nov, Hypomagnesemia E83.42 and Uncontrolled type 2 diabetes mellitus without complication, without long-term current use of insulin E11.65 [facility] [address] [id number] [place] [address] Nov, Uncontrolled type 2 diabetes mellitus without complication, without long-term current use of insulin E11.65 ; Hypomagnesemia E83.42 and Hyperlipidemia LDL goal <[address] [facility] [address] [id number][place] [address] Oct, [facility] [address] [facility] [id number][place] [address] Sep, [facility] [address] [id number][place] [address] Aug, [facility] [address] [id number][place] [address] Aug, Hypomagnesemia E83.[address] [facility] [address] [id number][place] [address] Aug, Uncontrolled type 2 diabetes mellitus without complication, without long-term current use of insulin E11.65 and Hypomagnesemia E83.[address] [facility] [address] [id number], [place] [id number] Aug, [facility] [address] [id number], [place] [address] Jul, COPD exacerbation J44.[address] [facility] [address] [id number][place] [address] Jul, Clostridium difficile diarrhea A04.[address] [facility] [address] [id number][place] [address] Jun, [facility] [address] [id number][place] [address] May, Clostridium difficile diarrhea A04.[address] [facility] [address] [id number], [place] [address] May, Clostridium difficile diarrhea A04.[address] [facility] [address] [id number], [place] [address] May, Hypomagnesemia E83.[address] [facility] [address] [id number], [place] [address] May, Uncontrolled type 2 diabetes mellitus without complication, without long-term current use of insulin E11.65 ; Clostridium difficile diarrhea A04.7 and Hypomagnesemia E83.[address] [facility] [address] [id number], [place] [address] May, [facility] [address] [id number], [place] [address] May, [facility] [address] [id number], [place] [address] Apr, Clostridium difficile diarrhea A04.7 and Hypomagnesemia E83.[address] [facility] [address] [id number], [place] [address] Apr, [facility] [address] [id number][place] [address] Apr, High triglycerides E78.[address] [facility] [address] [id number], [place] [address] February, Recurrent pneumonia J18.[address] [facility] [address] [id number][place] [address] February, Hypomagnesemia E83.42 [facility] [address] [facility] [id number][place] [address] February, [facility] [address] [id number][place] [id number] February, COPD exacerbation J44.[address] [facility] [address] [id number], [place] [address] February, [facility] [address] [id number][place] [address] Jan, Uncontrolled type 2 diabetes mellitus without complication, without long-term current use of insulin E11.65 and Arthritis, lumbar spine M47.[address] [facility] [address] [id number] [place] [address] Dec, [facility] [address] [id number] [place] [address] Dec, [facility] [address] [id number] [place] [address] Oct, [facility] [address] [id number], [place] [address] Oct, Uncontrolled type 2 diabetes mellitus without complication, without long-term current use of insulin E11.[address] [facility] [address] [id number] [place] [address] Sep, Uncontrolled type 2 diabetes mellitus without complication, without long-term current use of insulin E11.[address] [facility] [address] [id number], [place] [address] Aug, [facility] [address] [id number], [place] [id number] Aug, [facility] [address] [facility] [id number] [place] [address] Aug, [facility] [address] [id number], [place] [address] Jul, [facility] [address] [id number], [place] [address] Jul, Encounter for immunization Z23 ; Uncontrolled type 2 diabetes mellitus without complication, without long-term current use of insulin E11.65 and Leg cramps, sleep related G47.[address] [facility] [address] [id number] [place] [address] May, [facility] [address] [id number] [place] [address] Apr, [facility] [address] [id number] [place] [address] Apr, Uncontrolled type 2 diabetes mellitus without complication, without long-term current use of insulin E11.65 and Hyperlipidemia LDL goal <70 E78.[address] [facility] [address] [id number], [place] [address] Mar, [facility] [address] [id number], [place] [address] Mar, [facility] [address] [id number], [place] [address] Mar, Obstructive chronic bronchitis with exacerbation J44.1 [facility] [address]00565100[place] [address] February, [facility] [address] [id number], [place] [address] February, [facility] [address]00565100[place], [place] [address] February, [facility] [address] [id number], [place] [address] February, Controlled type 2 diabetes mellitus without complication, without long-term current use of insulin E11.9 [facility] [address]00565100[place], [place] [address] February, [facility] [address] [place] [address] AVE [id number], [place] [address] Jan, Pneumonia of both lungs due to infectious organism, unspecified part of lung J18.9 ; Pure hypercholesterolemia E78.0 and Hx of oysterman use 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 [facility] [address] [id number], [place] [address] Jan, [facility] [address] [facility] [id number], [place] [address] Jan, [facility] [address] [id number], [place] [address] Dec, Arthritis, lumbar spine M47.9 ; Essential hypertension with goal blood pressure less than 130\/80 I10 and Pneumonia of left lower lobe due to infectious organism J18.[address] [id number], [place] [address] Dec, [facility] [address] [id number], [place] [address] Nov, Arthritis, lumbar spine M47.9 [facility] [address]00565100[place], [place] [address] Nov, [facility] [address]00565[address], [place] [address] Oct, [facility] [address] [id number], [place] 15840[address]44 Oct, High triglycerides E78.1 [facility] [address] [id number], [place] [address] Oct, Diabetes type 2, controlled E11.9 ; Arthritis, lumbar spine M47.9 and Encounter for Zostavax administration Z23 [facility] [address] [id number] [address] Sep, [facility] [address]00565[address] Aug, [facility] [id number] [place] [address] Aug, [facility] [address] [id number], [place] [address]846 Jul, [facility] [address] [id number], [place] [address]1943 Jul, Encounter for immunization Z23 [facility] [address] [facility] [id number], [place] [address] Jun, [facility] [address] [id number], [place] 94[address] Jun, [facility] [address] [id number], [place] [address]97[address]25[address] 08 Jun, 2015 Diabetes 250.00 ; Interstitial pulmonary disease 515 and DJD ( degenerative joint disease), lumbosacral 722.[address] [facility] [address] [id number], [place] [address] Apr, [facility] [address] [facility] [id number] [address] Apr, [facility] [address] [id number], [place] [address] Mar, DJD (degenerative joint disease), lumbosacral 722.52 and Lumbago 724.[address] [facility] [address] [id number], [place] 313[address]63 February, Lumbago 724.2 and Abnormal x-ray of thoracic spine 793.7 [facility] [address] [id number], [place] 614[address] February, Gout of knee 274.00 ; Lumbago with sciatica 724.3 and Interstitial pulmonary disease 515 [facility] [address] [id number], [place] [address] February, [facility] [address]00565[address], [place] [address] Jan, [facility] [id number] [place] [address]- 9686 Jan, [facility] [address]00565100[place], [place] [address]- [address] Dec, [facility] [address] [id number] [address]- [address] Dec, [facility] [address]00565100[place], [place] [address]- [address] Dec, [facility] [id number] [place] [address]- 9286 Dec, [facility] [address]65100[place], [place] [address]- [address] Nov, [facility] [id number] [place] [address]- 9344 Nov, 2014 [facility] [place] [facility] [address] [id number] [place] [address]- [address] Nov, 2014 [facility] [place] [facility] [address] [facility] [id number] [place] [address]- [address]36 Nov, 2014 [facility] [place] [facility] [address] [facility] [id number] [place] [address]- 1533 Nov, 2014 [facility] [place] [facility] [address] [facility] [id number] [place] [address]- 7[address] Nov, 2014 [facility] [place] [facility] [address] [facility] [id number] [place] [address]- 6409 Nov, 2014 [facility] [place] [facility] [address] [facility] [id number] [place] [address] Nov, 2014 [facility] [place] [facility] [address] [id number] [address]- [address] Nov, 2014 [facility] [place] [facility] [address] [facility] [id number] [place] [address]- 7747 Nov, [facility] [place] [facility] [address] [facility] [id number] [place] [address]- 9474 Nov, 2014 [facility] [place] [facility] [address] [facility] [id number] [place] [address]- 9222 Nov, [facility] [place] [facility] [address] [facility] [id number] [place] [address]- 2971 Nov, [facility] [place] [facility] [address] [facility] [id number][place] [address]- [address] Oct, [facility] [place] [facility] [address] [facility] [id number] [place] [address]- 8221 Oct, [facility] [place] [facility] [address] [facility] [id number] [place] [address]- 4213 Oct, [facility] [place] [facility] [address] [facility] [id number] [place] [address]- 5156 Oct, [facility] [place] [facility] [address] [id number] [place] [address]- 9576 Oct, [facility] [place] [facility] [address] [id number] [place] [address]- 7450 Oct, [facility] [place] [facility] [address] [id number] [place] [address]- 2613 Oct, [facility] [place] [facility] [address] [id number] [place] [address]- 8719 Oct, [facility] [place] [facility] [address] [id number] [place] [address]- 9184 Sep, [facility] [place] [facility] [address] [id number] [place] [address]- 7682 Sep, [facility] [place] [facility] [address] [id number] [place] [address]- 6981 Aug, [facility] [place] [facility] [address] [id number] [place] [address]- 7822 Aug, [facility] [place] [facility] [address] [id number] [place] [address]- 2968 Aug, [facility] [place] [facility] [address] [id number] [place] [address]- 3566 Aug, [facility] [place] [facility] [address] [id number] [place] [address]- 5261 Jul, [facility] [place] [facility] [address] [id number] [place] [address]- 8697 Jul, [facility] [place] [facility] [address] [id number] [place] [address]- 0895 29 Jun, 2014 [facility] [place] [facility] [address] [id number] [place] [address]- 0435 29 Jun, 2014 [facility] [place] [facility] [address] [id number] [place] [address]- 4479 16 Jun, 2014 [facility] [place] [facility] [address] [id number] [place] [address]- 1041 16 Jun, 2013 [facility] [place] [facility] [address] [id number] [place] [address]- 6103 11 Jun, 2013 [facility] [place] [facility] [address] [id number] [place] [address]- 5520 11 Jun, 2013 [facility] [place] [facility] [address] [id number] [place] [address]- 5562 04 Jun, 2013 [facility] [place] [facility] [address] [id number] [place] [address]- 0339 04 Jun, 2013 [facility] [place] [facility] [address] [id number] [place] [address]- 5670 03 Jun, 2013 [facility] [place] [facility] [address] [id number] [place] [address]- 7500 Jun, [facility] [place] [facility] [address] [id number] [place] [address]- 9441 Jun, 2013 [facility] [place] [facility] [address] [id number] [place] [address]- 6503 May, [facility] [place] [facility] [address] [id number] [place] [address]- 1095 May, [facility] [place] [facility] [address] [id number] [place] [address]- 8318 Apr, [facility] [place] [facility] [address] [id number] [place] [address]- 5935 Apr, [facility] [place] [facility] [address] [id number] [place] [address]- 5728 Apr, [facility] [place] [facility] [address] [id number] [place] [address]- 2279 Apr, [facility] [place] [facility] [address] [id number] [place] [address]- 8410 Apr, [facility] [place] [facility] [address] [id number] [place] [address]- 9919 Apr, [facility] [place] [facility] [address] [id number] [place] [address]- 2118 Apr, [facility] [place] [facility] [address] [id number] [place] [address]- 6451 Apr, [facility] [place] [facility] [address] [id number] [place] [address]- 2085 Apr, [facility] [place] [facility] [address] [id number] [place] [address]- 0695 Apr, [facility] [place] [facility] [address] [id number] [place] [address]- 4670 Mar, [facility] [place] [facility] [address] [id number] [place] [address]- 1413 Mar, [facility] [place] [facility] [address] [id number] [place] [address]- 4677 Mar, [facility] [place] [facility] [address] [id number] [place] [address]- 8875 Mar, [facility] [place] [facility] [address] [id number] [place] [address]- 5846 Mar, [facility] [place] [facility] [address] [id number] [place] [address]- 4516 Mar, [facility] [place] [facility] [address] [id number] [place] [address]- 1879 Mar, [facility] [place] [facility] [address] [id number] [place] [address]- 3239 Mar, [facility] [place] [facility] [address] [id number] [place] [address]- 5353 Mar, [facility] [place] [facility] [address] [id number] [place] [address]- 9001 Mar, [facility] [place] [facility] [address] [id number] [place] [address]- 4483 Mar, [facility] [place] [facility] [address] [id number] [place] [address]- 7992 Mar, [facility] [place] [facility] [address] [id number] [place] [address]- 8073 Mar, [facility] [place] [facility] [address] [id number] [place] [address]- 9118 Mar, [facility] [place] [facility] [address] [id number] [place] [address]- 0225 Mar, [facility] [place] [facility] [address] [id number] [place] [address]- 5903 Mar, [facility] [place] [facility] [address] [id number] [place] [address]- 0188 February, [facility] [place] [facility] [address] [id number] [place] [address]- 9651 February, [facility] [place] [facility] [address] [id number] [place] [address]- 2505 Jan, [facility] [place] [facility] [address] [id number] [place] [address]- 8096 Jan, [facility] [place] [facility] [address] [id number] [place] [address]- 5725 Jan, [facility] [place] [facility] [address] [id number] [place] [address]- 0291 Jan, [facility] [place] [facility] [address] [id number] [place] [address]- 7368 Dec, [facility] [place] [facility] [address] [id number], [place] [address]- 2573 Dec, [facility] [place] [facility] [address] [id number] [place] [address]- 3734 Dec, [facility] [place] [facility] [address] [id number] [place] [address]- 1884 Dec, [facility] [place] [facility] [address] [id number] [place] [address]- 9000 Nov, [facility] [place] [facility] [address] [id number], [place] [address]- 1856 Nov, [facility] [address] [id number] [place] [address]- 0602 Oct, [facility] [address] [id number] [place] [address]- 3104 Oct, [facility] [address] [id number] [place] [address]- 1319 Oct, [facility] [address] [id number] [place] [address]- 8261 Oct, [facility] [address] [id number] [place] [address]- 4269 Oct, [facility] [address] [id number] [place] [address]- 8576 Oct, [facility] [address] [id number][place] [address]- 0196 Jun, [facility] [address] [id number] [place] [address]- 6255 Jun, [facility] [address] [id number][place] [address]- 8686 Jun, [facility] [address] [id number][place] [id number] Jun, [facility] [address] [id number], [place] [address]- 1821 Apr, [facility] [place] [facility] [address] [id number], [place] [address]- 0585 Apr, [facility] [address] [id number], [place] [address]- 5847 Apr, [facility] [place] [facility] [address] [id number] [place] [address]- 3046 Apr, [facility] [place] [facility] [address] [id number], [place] [address]- 3625 Mar, [facility] [place] [facility] [address] [id number] [place] [address]- 7618 Mar, [facility] [address] [id number] [place] [address]- 0590 February, [facility] [address] [id number] [place] [address]- 8926 Jan, [facility] [address] [id number] [place] [address]- 3466 Jan, [facility] [address] [id number] [place] [address]- 4576 Jan, [facility] [address] [id number] [place] [address]- 12[address] Dec, [facility] [address] [id number] [place] [address] Dec, [facility] [address] [id number] [place] [address] Dec, [facility] [address] [id number] [place] [address] Nov, [facility] [address] [id number] [place] [address] Nov, [facility] [address] [id number] [place] [address] Oct, [facility] [address] [id number] [place] [address] Oct, [facility] [address] [id number] [place] [address] Oct, [facility] [address] [id number] [place] [address] Sep, [facility] [address] [id number] [place] [address] Sep, [facility] [address] [id number] [place] [address] Sep, [facility] [place] [facility] [address] [id number] [place] [address] Sep, [facility] [place] [facility] [address] [id number] [place] [address] Sep, [facility] [place] [facility] [address] [facility] [address] [facility] [id number] [place] [address] Sep, [facility] [place] [facility] [address] [id number] [place] [address] Sep, [facility] [place] [facility] [address] [id number] [place] [address] Sep, [facility] [place] [facility] [address] [id number] [place] [address] Aug, [facility] [place] [facility] [address] [facility] [id number] [place] [address] Aug, [facility] [place] [facility] [address] [facility] [id number][place] [address] Jul, [facility] [place] [facility] [address] [id number] [place] [address] Jul, [facility] [place] [facility] [address] [facility] [id number][place] [address] Jul, [facility] [place] [facility] [address] [facility] [id number], [place] [address] Jul, [facility] [place] [facility] [address] [facility] [id number], [place] [address] Jun, [facility] [place] [facility] [address] [id number], [place] [address] Jun, [facility] [address] [id number][place] [id number] Jun, [facility] [address] [id number][place] [id number] Jun, [facility] [place] [facility] [address] [facility] [id number], [place] [address] 11 Jun, 2012 [facility] [place] [facility] [address] [id number] [place] [address] 10 Jun, 2012 [facility] [place] [facility] [address] [id number] [place] [address] 08 Jun, 2012 [facility] [place] [facility] [address] [id number] [place] [address] 05 Jun, 2012 [facility] [place] [facility] [address] [id number] [place] [address] May, [facility] [place] [facility] [address] [id number] [place] [address] May, [facility] [place] [facility] [address] [id number] [place] [address] May, [facility] [place] [facility] [address] [id number] [place] [address] May, [facility] [place] [facility] [address] [id number] [place] [address] May, [facility] [place] [facility] [address] [id number] [place] [address] May, [facility] [place] [facility] [address] [facility] [id number][place] [id number] May, [facility] [place] [facility] [address] [id number] [place] [address] Apr, [facility] [place] [facility] [address] [facility] [id number][place] [id number] Apr, [facility] [place] [facility] [address] [id number] [place] [address] Apr, [facility] [place] [facility] [address] [id number] [place] [address] Apr, [facility] [place] [facility] [address] [address] [id number] [place] [address] Apr, [facility] [place] [facility] [address] [id number] [address] Apr, [facility] [place] [facility] [address] [id number] [place] [address] Apr, [facility] [place] [facility] [address] [id number] [place] [address] Apr, [facility] [place] [facility] [address] [id number] [place] [address] Apr, [facility] [place] [facility] [address] [id number] [place] [address] Apr, [facility] [place] [facility] [address] [id number] [place] [address] Mar, [facility] [place] [facility] [address] [id number] [place] [address] February, [facility] [place] [facility] [address] [id number] [place] [address] Jan, [facility] [place] [facility] [address] [id number] [place] [address] Dec, [facility] [place] [facility] [address] [id number] [place] [address] Dec, [facility] [place] [facility] [address] [facility] [id number] [place] [id number] Nov, [facility] [place] [facility] [address] [id number] [place] [address] Nov, [facility] [place] [facility] [address] [id number] [place] [address] Nov, [facility] [place] [facility] [address] [id number] [place] [address] Nov, [facility] [place] [facility] [address] [id number] [place] [address] Nov, [facility] [place] [facility] [address] [facility] [address] [facility] [id number] [place] [address] Nov, [facility] [address] [facility] [id number], [place] [address] Nov, [facility] [address] [facility] [id number] [id number] Oct, [facility] [address] [facility] [id number], [place] [address] Oct, [facility] [address] [facility] [id number], [place] [address] Oct, [facility] [address] [facility] [id number], [place] [address] Oct, [facility] [id number] [place] [address] Oct, [facility] [id number] [address] Oct, [facility] [address] [address] Sep, [facility] [address] Aug, [facility] [address] [id number] Jul, [facility] [address] [address] Jul, [facility] [address] [address] Jul, [facility] [address] [id number] [address] Jul, [facility] [address] [address] Jul, IMMUNIZATIONS No Known Immunizations SOCIAL HISTORY Never Assessed REASON FOR VISIT labs Gio MALAVE PLAN OF CARE VITAL SIGNS MEDICATIONS Unknown Medications RESULTS No Results PROCEDURES Procedure Date Ordered Result Body Site LAB NOT BILLED BY [facility] May 14, 2017 PHILLIP MARTINEZ* May 14, 2017 INSTRUCTIONS MEDICATIONS ADMINISTERED No Known Medications [...]
--- OUTSIDE RECORDS SUMMARY | 2018-12-17 08:13 | XMS REPORT ---
Author Author PHYLLISJACKIE MARIBEL [facility] Address [address] [place] [address] Care Team Providers Care Senior Recruiter Name Role Phone MARIBEL GARY Unavailable PROBLEMS Type Condition ICD9-CM Code MNF47-MZ Code Onset Dates Condition Status SNOMED Code Problem Controlled type 2 diabetes mellitus without complication, without long -term current use of insulin E11.9 Active 954531669 Problem Hyperlipidemia LDL goal <70 E78.5 Active 02029873 Problem Uncontrolled type 2 diabetes mellitus without complication, without long-term current use of insulin E11.65 Active 077646810 Problem Hyperlipidemia LDL goal <70 E78.5 Active 30655166 Problem Clostridium difficile diarrhea A04.7 Active 3434655924995 Problem COPD exacerbation J44.1 Active 609520608 Problem Leg cramps, sleep related G47.62 Active 47549446 Problem Hypomagnesemia E83.42 Active 167715721 Problem Recurrent pneumonia J18.9 Active 167606582 Problem Arthritis, lumbar spine M47.9 Active 528053259 Problem High triglycerides E78.1 Active 805873349 Problem Essential hypertension with goal blood pressure less than 130\/80 I10 Active 81613518 Problem Diabetes type 2, controlled E11.9 Active 87604828 Problem 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 Active 469219942 Problem Encounter for Zostavax administration Z23 Active 126514902 Problem Pure hypercholesterolemia E78.0 Active 105682613 ALLERGIES No Information ENCOUNTERS Encounter Location Date Diagnosis [facility] [address] [id number][place] [id number] February, [facility] [address] [id number][place] [address] Jan, Uncontrolled type 2 diabetes mellitus without complication, without long-term current use of insulin E11.65 [facility] [address] [id number][place] [address]46646[address] Nov, Hypomagnesemia E83.42 and Uncontrolled type 2 diabetes mellitus without complication, without long-term current use of insulin E11.[address] [facility] [address] [id number][place] [address] Nov, Uncontrolled type 2 diabetes mellitus without complication, without long-term current use of insulin E11.65 ; Hypomagnesemia E83.42 and Hyperlipidemia LDL goal <[address] [facility] [address] [address] [id number][place] [address] Oct, [facility] [address] [facility] [id number] [address] Sep, [facility] [address] [id number][place] [id number] Aug, [facility] [address] [id number][place] [address] Aug, Hypomagnesemia E83.[address] [facility] [address] [address] [id number][place] [address] Aug, Uncontrolled type 2 diabetes mellitus without complication, without long-term current use of insulin E11.65 and Hypomagnesemia E83.[address] [facility] [address] [address] [id number][place] [address] Aug, [facility] [address] [id number][place] [address] Jul, COPD exacerbation J44.[address] [facility] [address] [address] [id number][place] [address] Jul, Clostridium difficile diarrhea A04.[address] [facility] [address] [address] [id number][place] [address] Jun, [facility] [address] [id number][place] [address] May, Clostridium difficile diarrhea A04.[address] [facility] [address] [address] [id number] [place] [address] May, Clostridium difficile diarrhea A04.[address] [facility] [address] [address] [id number] [place] [address] May, Hypomagnesemia E83.[address] [facility] [address] [address] [id number], [place] [address]65[address] May, Uncontrolled type 2 diabetes mellitus without complication, without long-term current use of insulin E11.65 ; Clostridium difficile diarrhea A04.7 and Hypomagnesemia E83.[address] [facility] [address] [address] [id number], [place] [address]84[address]67[address] May, [facility] [address] [id number], [place] [address] May, [facility] [address] [id number][place] [address] Apr, Clostridium difficile diarrhea A04.7 and Hypomagnesemia E83.[address] [facility] [address] [address] [id number][place] [address] Apr, [facility] [address] [id number][place] [address]54[address] Apr, High triglycerides E78.[address] [facility] [address] [address] [id number][place] [address] February, Recurrent pneumonia J18.[address] [facility] [address] [address] [id number][place] 125[address] February, Hypomagnesemia E83.42 [facility] [address] [facility] [id number] [place] [address] February, [facility] [address] [id number][place] [address] February, COPD exacerbation J44.[address] [facility] [address] [address] [id number], [place] [address] February, [facility] [address] [id number], [place] [address] Jan, Uncontrolled type 2 diabetes mellitus without complication, without long-term current use of insulin E11.65 and Arthritis, lumbar spine M47.[address] [facility] [address] [address] [id number], [place] [address]6705[address] Dec, [facility] [address] [id number][place] [address] Dec, [facility] [address] [id number], [place] [address]33156231 Oct, [facility] [address] [id number], [place] [address]3648308 Oct, Uncontrolled type 2 diabetes mellitus without complication, without long-term current use of insulin E11.[address] [facility] [address] [address] [id number], [place] [address] Sep, Uncontrolled type 2 diabetes mellitus without complication, without long-term current use of insulin E11.[address] [facility] [address] [address] [id number][place] [id number] Aug, [facility] [address] [id number], [place] 819733[address] Aug, [facility] [address] [facility] [id number] [place] [address] Aug, [facility] [address] [id number], [place] [address] Jul, [facility] [address] [id number], [place] 399[address] Jul, Uncontrolled type 2 diabetes mellitus without complication, without long-term current use of insulin E11.65 ; Encounter for immunization Z23 and Leg cramps, sleep related G47.[address] [facility] [address] [address] [id number], [place] [address]403[address] May, [facility] [address] [id number], [place] 8104559[address] Apr, [facility] [address] [id number], [place] [address]96[address]74[address] Apr, Uncontrolled type 2 diabetes mellitus without complication, without long-term current use of insulin E11.65 and Hyperlipidemia LDL goal <70 E78.5 [facility] [address] [address] [id number] [place] [address] Mar, [facility] [address] [id number], [place] [address] Mar, [facility] [address] [id number], [place] 492[address]395 Mar, Obstructive chronic bronchitis with exacerbation J44.1 [place] [id number] [place] [address] February, [facility] [id number][place] [address] February, [place] [id number] [place] [address] February, [facility] [id number], [place] [address]82[address] February, Controlled type 2 diabetes mellitus without complication, without long-term current use of insulin E11.9 [facility] [address]00565100[place] [address] February, [facility] [address] [place] [address] AVE [id number], [place] 6906[address]262 Jan, Pneumonia of both lungs due to infectious organism, unspecified part of lung J18.9 ; Pure hypercholesterolemia E78.0 and Hx of detention use 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 [facility] [address] [address] [id number], [place] 012302560 Jan, [facility] [address] [id number] 38915437- [address] Jan, [facility] [address] [id number], [place] 923886434 Dec, Arthritis, lumbar spine M47.9 ; Essential hypertension with goal blood pressure less than 130\/80 I10 and Pneumonia of left lower lobe due to infectious organism J18.9 [facility] [address] [address] [id number], [place] [address]359[address] Dec, [facility] [address] [address] [id number], [place] 8764187[address] Nov, Arthritis, lumbar spine M47.9 [facility] [address]00565100[place] [address] Nov, [facility] [address] [id number] [address] Oct, [facility] [address] [address] [id number], [place] [address] Oct, High triglycerides E78.1 [facility] [address] [address] [id number], [place] 881706944 Oct, Diabetes type 2, controlled E11.9 ; Arthritis, lumbar spine M47.9 and Encounter for Zostavax administration Z23 [facility] [address] [id number] [address] Sep, [facility] [address] [id number] [address] Aug, [facility] [address]00565100[place] [address] Aug, [facility] [address] [address] [id number], [place] [address]45645794 Jul, [facility] [address] [address] [id number], [place] 661822984 Jul, Encounter for immunization Z23 [facility] [address]00565100[place] [address] Jun, [facility] [address] [address] [id number], [place] 989995423 Jun, [facility] [address] [address] [id number] [place] [address] Jun, Diabetes 250.00 ; Interstitial pulmonary disease 515 and DJD ( degenerative joint disease), lumbosacral 722.52 [facility] [address] [address] [id number], [place] 000042768 Apr, [facility] [place] [place] [address] [facility] [id number] 768252244 Apr, [facility] [address] [address] [id number], [place] 136450711 Mar, DJD (degenerative joint disease), lumbosacral 722.52 and Lumbago 724.[address] [facility] [address] [address] [id number], [place] 962235797 February, Lumbago 724.2 and Abnormal x-ray of thoracic spine 793.7 [facility] [address] [id number], [place] 500748810 February, Gout of knee 274.00 ; Lumbago with sciatica 724.3 and Interstitial pulmonary disease 515 [facility] [address] [id number], [place] 929542920 February, [facility] [address]65100[place] 52653575- [address] Jan, [facility] [address] [id number] 387792- [address] Jan, [facility] [address]00565100[place] 153377- 2426 Dec, [facility] [address]65100[place] 496[place]- [address]21 Dec, [facility] [address]00565100[place] [address]- [address] Dec, [facility] [address] [id number] [address]- [address] Dec, [facility] [address] [place] [place] [address]- [address] Nov, 2014 [facility] [place] [facility] [address] [id number] [place] [address]- [address] Nov, 2014 [facility] [place] [facility] [address] [id number] [place] [address]- [address]46 Nov, 2014 [facility] [place] [facility] [address] [id number] [place] [address]- [address]120 Nov, 2014 [facility] [place] [facility] [address] [id number] [place] [address]- 2540 Nov, 2014 [facility] [place] [facility] [address] [id number] [place] [address]- 8812 Nov, 2014 [facility] [place] [facility] [address] [facility] [id number] [place] [address]- 0121 Nov, 2014 [facility] [place] [facility] [address] [facility] [id number] [place] [address]- 2074 Nov, 2014 [facility] [place] [facility] [address] [facility] [id number] [place] [address]- 9475 Nov, 2014 [facility] [place] [facility] [address] [facility] [id number] [place] [address]- 9640 Nov, 2014 [facility] [place] [facility] [address] [id number] [place] [place] [address]- [address]27 Nov, [facility] [place] [facility] [address] [facility] [id number] [place] [address]- [address]49 Nov, 2014 [facility] [place] [facility] [address] [facility] [id number] [place] [address]- 2542 Nov, [facility] [place] [facility] [address] [id number] [place] [address]- 4735 Oct, [facility] [place] [facility] [address] [facility] [id number] [place] [address]- [address] Oct, [facility] [place] [facility] [address] [facility] [id number] [place] [address]- 6254 Oct, [facility] [place] [facility] [address] [id number] [place] [address]- 0979 Oct, [facility] [place] [facility] [address] [id number] [place] [address]- 9494 Oct, [facility] [place] [facility] [address] [facility] [id number] [place] [address]- 6654 Oct, [facility] [place] [facility] [address] [id number] [place] [address]- 4164 Oct, [facility] [place] [facility] [address] [id number] [place] [address]- 7566 Oct, [facility] [place] [facility] [address] [id number] [place] [address]- 5346 Sep, [facility] [place] [facility] [address] [facility] [id number] [place] [address]- 8826 Sep, [facility] [place] [facility] [address] [id number] [place] [address]- 0566 Aug, [facility] [place] [facility] [address] [id number] [place] [address]- [address] Aug, [facility] [place] [facility] [address] [facility] [id number] [place] [address]- 0140 Aug, [facility] [place] [facility] [address] [id number] [address]- 4158 Aug, [facility] [place] [facility] [address] [id number] [place] [address]- 7570 Jul, [facility] [place] [facility] [address] [id number] [place] [address]- 9876 Jul, [facility] [place] [facility] [address] [facility] [id number] [address]- 7969 Jun, [facility] [place] [facility] [address] [id number] [place] [address]- 5211 Jun, [facility] [place] [facility] [address] [id number] [place] [address]- [address]107 16 Jun, 2013 [facility] [place] [facility] [address] [id number] [place] [address]- 3366 16 Jun, 2013 [facility] [place] [facility] [address] [id number] [place] [address] 2546 11 Jun, 2013 [facility] [place] [facility] [address] [id number] [place] [address] 2546 11 Jun, 2013 [facility] [place] [facility] [address] [id number] [place] [address] 2548 04 Jun, 2013 [facility] [place] [facility] [address] [id number] [place] [address]- 1212 04 Jun, 2013 [facility] [place] [facility] [address] [id number] [place] [address]- 7192 03 Jun, 2013 [facility] [place] [facility] [address] [id number] [place] [address]- 2923 Jun, 2013 [facility] [place] [facility] [address] [id number] [place] [address]- 3789 Jun, 2013 [facility] [place] [facility] [address] [id number] [place] [address]- 6894 May, [facility] [place] [facility] [address] [id number] [place] [address]- 1127 May, [facility] [place] [facility] [address] [id number] [place] [address]- 6177 Apr, [facility] [place] [facility] [address] [id number] [place] [address]- 1351 Apr, [facility] [place] [facility] [address] [id number] [place] [address]- 9283 Apr, [facility] [place] [facility] [address] [id number] [place] [address]- 5433 Apr, [facility] [place] [facility] [address] [id number] [place] [address]- 8835 Apr, [facility] [place] [facility] [address] [id number] [place] [address]- 1444 Apr, [facility] [place] [facility] [address] [id number] [place] [address]- 2293 Apr, [facility] [place] [facility] [address] [id number] [place] [address]- 8883 Apr, [facility] [place] [facility] [address] [id number] [place] [address]- 4902 Apr, [facility] [place] [facility] [address] [id number] [place] [address]- 3329 Apr, [facility] [place] [facility] [address] [id number] [place] [address]- 3446 Mar, [facility] [place] [facility] [address] [id number] [place] [address]- 9992 Mar, [facility] [place] [facility] [address] [id number] [place] [address]- 3672 Mar, [facility] [place] [facility] [address] [id number] [place] [address]- 8478 Mar, [facility] [place] [facility] [address] [id number] [place] [address]- 7159 Mar, [facility] [place] [facility] [address] [id number] [place] [address]- 2179 Mar, [facility] [place] [facility] [address] [id number] [place] [address]- 3021 Mar, [facility] [place] [facility] [address] [id number] [place] [address]- 1884 Mar, [facility] [place] [facility] [address] [id number] [place] [address]- 1296 Mar, [facility] [place] [facility] [address] [id number] [place] [address]- 7908 Mar, [facility] [place] [facility] [address] [id number] [place] [address]- 4741 Mar, [facility] [place] [facility] [address] [id number] [place] [address]- 0336 Mar, [facility] [place] [facility] [address] [id number] [place] [address]- 8371 Mar, [facility] [place] [facility] [address] [id number] [place] [address]- 6881 Mar, [facility] [place] [facility] [address] [id number] [place] [address]- 4215 Mar, [facility] [place] [facility] [address] [id number] [place] [address]- 7256 Mar, [facility] [place] [facility] [address] [id number] [place] [address]- 3846 February, [facility] [place] [facility] [address] [id number] [place] [address]- 4215 February, [facility] [place] [facility] [address] [id number] [place] [address]- 1478 Jan, [facility] [place] [facility] [address] [id number] [place] [address]- 1033 Jan, [facility] [place] [facility] [address] [id number] [place] [address]- 6811 Jan, [facility] [place] [facility] [address] [id number] [place] [address]- 1104 Jan, [facility] [place] [facility] [address] [id number] [place] [address]- 4013 Dec, [facility] [place] [facility] [address] [id number] [place] [address]- 1662 Dec, [facility] [place] [facility] [address] [id number] [place] [address]- 4562 Dec, [facility] [place] [facility] [address] [id number] [place] [address]- 5199 Dec, [facility] [place] [facility] [address] [id number] [place] [address]- 8767 Nov, [facility] [address] [id number] [place] [address]- 8766 Nov, [facility] [address] [id number] [place] [address]- 6492 Oct, [facility] [address] [id number] [place] [address]- 8682 Oct, [facility] [address] [id number] [place] [address]- 6881 Oct, [facility] [address] [id number] [place] [address]- 7569 Oct, [facility] [address] [id number] [place] [address]- 2464 Oct, [facility] [address] [id number] [place] [address]- 9634 Oct, [facility] [address] [id number] [place] [address]- 1419 Jun, [facility] [address] [id number] [place] [address]- 6216 Jun, [facility] [address] [id number] [place] [address]- 2546 Jun, [facility] [address] [id number][place] [address] Jun, [facility] [address] [id number] [place] [address]- 2546 Apr, [facility] [place] [facility] [address] [id number] [place] [address] Apr, [facility] [address] [id number] [place] [address] Apr, [facility] [address] [id number] [place] [address] Apr, [facility] [address] [id number] [place] [address] Mar, [facility] [address] [id number] [place] [address] Mar, [facility] [address] [id number] [place] [address] February, [facility] [address] [id number] [place] [address] Jan, [facility] [address] [id number] [place] [address] Jan, [facility] [address] [id number] [place] [address] Jan, [facility] [address] [id number] [place] [address] Dec, [facility] [place] [facility] [address] [id number] [place] [address] Dec, [facility] [address] [id number] [place] [address] Dec, [facility] [place] [facility] [address] [id number] [place] [address] Nov, [facility] [place] [facility] [address] [id number] [place] [address] Nov, [facility] [place] [facility] [address] [id number] [address] Oct, [facility] [place] [facility] [address] [id number] [place] [address] Oct, [facility] [place] [facility] [address] [id number] [place] [address] Oct, [facility] [place] [facility] [address] [id number] [place] [address] Sep, [facility] [place] [facility] [address] [id number] [place] [address] Sep, [facility] [address] [id number] [place] [address] Sep, [facility] [place] [facility] [address] [id number] [place] [address] Sep, [facility] [address] [id number] [place] [address] Sep, [facility] [address] [id number] [place] [address] Sep, [facility] [address] [id number] [place] [address] Sep, [facility] [address] [id number] [place] [address] Sep, [facility] [address] [facility] [id number] [place] [address] Aug, [facility] [address] [id number] [place] [address] Aug, [facility] [address] [facility] [id number] [place] [address] Jul, [facility] [address] [facility] [id number] [address] Jul, [facility] [place] [facility] [address] [facility] [id number] [place] [address] Jul, [facility] [address] [facility] [id number] [address] Jul, [facility] [place] [facility] [address] [facility] [id number] [place] [address] Jun, [facility] [place] [facility] [address] [facility] [id number] [place] [address] Jun, [facility] [address] [id number] [id number] Jun, [facility] [address] [id number] [place] [id number] Jun, 2012 [facility] [address] [id number] [place] [address] 11 Jun, 2012 [facility] [place] [facility] [address] [id number] [place] [address] 10 Jun, 2012 [facility] [address] [id number] [place] [address] 08 Jun, 2012 [facility] [place] [facility] [address] [id number] [place] [address] 05 Jun, 2012 [facility] [address] [id number] [place] [address] May, [facility] [address] [id number] [place] [address] May, [facility] [address] [address] [id number] [place] [address] May, [facility] [address] [id number] [place] [address] May, [facility] [place] [facility] [address] [id number] [place] [address] May, [facility] [address] [id number] [place] [address] May, [facility] [place] [facility] [address] [id number] [id number] May, [facility] [place] [facility] [address] [id number] [place] [address] Apr, [facility] [place] [facility] [address] [id number] [place] [id number] Apr, [facility] [place] [facility] [address] [id number] [place] [address] Apr, [facility] [place] [facility] [address] [id number] [place] [address] Apr, [facility] [place] [facility] [address] [id number] [place] [address] Apr, [facility] [place] [facility] [address] [id number] [place] [address] Apr, [facility] [place] [facility] [address] [id number] [place] [address] Apr, [facility] [place] [facility] [address] [id number] [place] [address] Apr, [facility] [address] [id number] [place] [address] Apr, [facility] [place] [facility] [address] [id number] [place] [address] Apr, [facility] [address] [id number] [place] [address] Mar, [facility] [address] [id number] [place] [address] February, [facility] [address] [id number] [place] [address] Jan, [facility] [address] [id number] [place] [address] Dec, [facility] [place] [facility] [address] [id number] [place] [address] Dec, [facility] [place] [facility] [address] [id number] [id number] Nov, [facility] [place] [facility] [address] [id number] [place] [address] Nov, [facility] [place] [facility] [address] [id number] [place] [address] Nov, [facility] [place] [facility] [address] [id number] [place] [address] Nov, [facility] [place] [facility] [address] [id number] [place] [address] Nov, [facility] [address] [facility] [id number] [address] Nov, [facility] [id number] [address] Nov, [facility] [address] [facility] [id number] [place] [id number] Oct, [facility] [address] [id number] [address] Oct, [facility] [id number] [address] Oct, [facility] [id number] [address] Oct, [facility] [id number] [address] Oct, [facility] [id number] [address] Oct, [facility] [id number] [address] Sep, [facility] [id number] [address] Aug, [facility] [id number] [address] Jul, [facility] [id number] [address] Jul, [facility] [id number] [address] Jul, [facility] [id number] [address] Jul, [facility] [id number] [address] Jul, IMMUNIZATIONS No Known Immunizations SOCIAL HISTORY Never Assessed REASON FOR VISIT Lab (walk-in) Gio MAALVE PLAN OF CARE VITAL SIGNS MEDICATIONS Unknown Medications RESULTS No Results PROCEDURES Procedure Date Ordered Result Body Site LAB NOT BILLED BY Voice Assist Jul 28, 2017 INSTRUCTIONS MEDICATIONS ADMINISTERED No Known Medications [...]
--- OUTSIDE RECORDS SUMMARY | 2018-12-17 08:14 | XMS REPORT ---
Author Author ABDIRAHMAN MARIBEL [facility] Address [address] [place] [address] Care Team Providers Care Social Media Sr Strategy Manager Name Role Phone MARIBEL GARY Unavailable PROBLEMS Type Condition ICD9-CM Code RYI00-UI Code Onset Dates Condition Status SNOMED Code Problem Leg cramps, sleep related G47.62 Active 68338146 Problem Recurrent pneumonia J18.9 Active 002023374 Problem COPD exacerbation J44.1 Active 798091210 Problem Other obesity due to excess calories E66.09 Active 532256810 Problem History of shingles Z86.19 Active 064548673485505 Problem Clostridium difficile diarrhea A04.7 Active 8594579091145 Problem Hypomagnesemia E83.42 Active 741310558 Problem Body mass index (BMI) of 30.0-30.9 in adult Z68.30 Active 013425890 Problem Hyperlipidemia LDL goal <70 E78.5 Active 30894846 Problem Encounter for Zostavax administration Z23 Active 521225855 Problem High triglycerides E78.1 Active 951133741 Problem Arthritis, lumbar spine M47.9 Active 976422463 Problem Diabetes type 2, controlled E11.9 Active 69497708 Problem Hx of chcf use 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 Active 675706476 Problem Controlled type 2 diabetes mellitus without complication, without long -term current use of insulin E11.9 Active 663916188 Problem Essential hypertension with goal blood pressure less than 130\/80 I10 Active 07597184 Problem Hyperlipidemia LDL goal <70 E78.5 Active 46470893 Problem Pure hypercholesterolemia E78.0 Active 281105736 Problem Uncontrolled type 2 diabetes mellitus without complication, without long-term current use of insulin E11.65 Active 118750610 ALLERGIES No Information ENCOUNTERS Encounter Location Date Diagnosis [facility] [address] [facility] [id number], [place] [address] February, [facility] [address] [address] [id number] [place] [address] February, Diabetes type 2, controlled E11.9 ; Other obesity due to excess calories E66.09 ; Body mass index (BMI) of 30.0-30.9 in adult Z68.30 and History of shingles Z86.[address] [facility] [address] [id number] [place] [address] Jan, Uncontrolled type 2 diabetes mellitus without complication, without long-term current use of insulin E11.[address] [facility] [address] [id number] [place] 115585[place] Nov, Hypomagnesemia E83.42 and Uncontrolled type 2 diabetes mellitus without complication, without long-term current use of insulin E11.[address] [facility] [address] [id number] [place] [address] Nov, Uncontrolled type 2 diabetes mellitus without complication, without long-term current use of insulin E11.65 ; Hypomagnesemia E83.42 and Hyperlipidemia LDL goal <70 E78.5 [facility] [id number] [place] [id number] Oct, [facility] [address] [facility] [id number], [place] [address] Sep, [facility] [address] [address] [id number] [place] [id number] Aug, [facility] [address] [address] [id number] [place] [address] Aug, Hypomagnesemia E83.42 [facility] [address] [id number] [place] [address] Aug, Uncontrolled type 2 diabetes mellitus without complication, without long-term current use of insulin E11.65 and Hypomagnesemia E83.[address] [facility] [address] [id number] [place] [id number] Aug, [facility] [address] [address] [id number] [place] [id number] Jul, COPD exacerbation J44.[address] [facility] [address] [address] [id number] [place] [address] Jul, Clostridium difficile diarrhea A04.[address] [facility] [address] [id number] [place] [address] Jun, [facility] [address] [address] [id number] [place] [address] May, Clostridium difficile diarrhea A04.[address] [facility] [address] [id number] [place] [address] May, Clostridium difficile diarrhea A04.[address] [facility] [address] [id number] [place] [address] May, Hypomagnesemia E83.[address] [facility] [address] [id number] [place] [address]75[address] May, Uncontrolled type 2 diabetes mellitus without complication, without long-term current use of insulin E11.65 ; Clostridium difficile diarrhea A04.7 and Hypomagnesemia E83.[address] [facility] [address] [id number] [place] [address] May, [facility] [address] [address] [id number] [place] [address] May, [facility] [address] [id number] [place] [address] Apr, Clostridium difficile diarrhea A04.7 and Hypomagnesemia E83.[address] [facility] [address] [address] [id number] [place] [address] Apr, [facility] [address] [address] [id number] [place] [address] Apr, High triglycerides E78.[address] [facility] [address] [address] [id number] [place] [address] February, Recurrent pneumonia J18.[address] [facility] [address] [address] [id number] [place] [id number] February, Hypomagnesemia E83.[address] [facility] [address] [facility] [id number][place] [address] February, [facility] [address] [address] [id number] [place] [address] February, COPD exacerbation J44.[address] [facility] [address] [address] [id number] [place] [address] February, [facility] [address] [address] [id number] [place] [id number] Jan, Uncontrolled type 2 diabetes mellitus without complication, without long-term current use of insulin E11.65 and Arthritis, lumbar spine M47.[address] [facility] [address] [address] [id number] [place] [address] Dec, [facility] [address] [address] [id number] [place] [address] Dec, [facility] [address] [address] [id number] [place] [id number] Oct, [facility] [address] [id number] [place] [address] Oct, Uncontrolled type 2 diabetes mellitus without complication, without long-term current use of insulin E11.[address] [facility] [address] [address] [id number] [place] [address] Sep, Uncontrolled type 2 diabetes mellitus without complication, without long-term current use of insulin E11.[address] [facility] [address] [address] [id number] [place] [address] Aug, [facility] [address] [address] [id number] [place] [address] Aug, [facility] [address] [facility] [id number] [address] Aug, [facility] [address] [address] [id number] [place] [address]93[address]23[address] Jul, [facility] [address] [address] [id number] [place], [place] 4779899[address] Jul, Encounter for immunization Z23 ; Uncontrolled type 2 diabetes mellitus without complication, without long-term current use of insulin E11.65 and Leg cramps, sleep related G47.[address] [facility] [address] [id number] [place] 7915[address] May, [facility] [address] [id number] [place], [place] 1759[address] Apr, [facility] [address] [id number] [place] 99478[address] Apr, Uncontrolled type 2 diabetes mellitus without complication, without long-term current use of insulin E11.65 and Hyperlipidemia LDL goal <70 E78.5 [facility] [address] [id number] [place] [id number] Mar, [facility] [address] [id number] [place] [address] Mar, [facility] [address] [id number] [place] 533[address]49 Mar, Obstructive chronic bronchitis with exacerbation J44.1 [facility] [address] [id number] [address] February, [facility] [address] [id number] [place] [id number] February, [facility] [address] [id number], [place] 35429005- [address]68 February, [facility] [address] [id number] [place] [id number] February, Controlled type 2 diabetes mellitus without complication, without long-term current use of insulin E11.9 [facility] [address]00565100[place] [address] February, [facility] [address] [address] [id number] [place] [id number] Jan, Pneumonia of both lungs due to infectious organism, unspecified part of lung J18.9 ; Pure hypercholesterolemia E78.0 and Hx of intermediate designer use 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 [facility] [address] [id number] [place] [address] Jan, [facility] [address] [place] [address] Jan, [facility] [address] [id number] [place] [id number] Dec, Arthritis, lumbar spine M47.9 ; Essential hypertension with goal blood pressure less than 130\/80 I10 and Pneumonia of left lower lobe due to infectious organism J18.9 [facility] [address] [facility] [address] [id number] [place] [id number] Dec, [facility] [address] [facility] [address] [id number] [place], [place] 384365922 Nov, Arthritis, lumbar spine M47.9 [facility] [address] [place] [address] 6430 Nov, [facility] [id number] [place] [address] Oct, [facility] [address] [place] [address] AVE [id number] [place] 2385[address]876 Oct, High triglycerides E78.1 [facility] [address] [place] [address] AVE [id number] [place], [place] 3157[address]237 Oct, Diabetes type 2, controlled E11.9 ; Arthritis, lumbar spine M47.9 and Encounter for Zostavax administration Z23 [facility] [id number] [place] [address]- 9[address] Sep, [facility] [id number] [place] [address]- 2599 Aug, [facility] [id number] [place] [address] Aug, [facility] [address] [id number] [place] [id number] Jul, [facility] [address] [id number] [place], [place] [address]1261 Jul, Encounter for immunization Z23 [facility] [address] [facility] [id number], [place] [address] Jun, [facility] [address] [id number] [place] 615611390 Jun, [facility] [address] [id number] [place] 464877165 Jun, Diabetes 250.00 ; Interstitial pulmonary disease 515 and DJD ( degenerative joint disease), lumbosacral 722.52 [facility] [address] [id number] [place] 858246040 Apr, [facility] [address] [id number] [address] Apr, [facility] [address] [id number] [place] 356331688 Mar, DJD (degenerative joint disease), lumbosacral 722.52 and Lumbago 724.2 [facility] [address] [id number] [place] [id number] February, Lumbago 724.2 and Abnormal x-ray of thoracic spine 793.7 [facility] [address] [id number] [place] 458342036 February, Gout of knee 274.00 ; Lumbago with sciatica 724.3 and Interstitial pulmonary disease [address] [facility] [address] [id number] [place] [id number] February, [facility] [address] [facility] [id number], [place] [address] Jan, [facility] [address] [facility] [id number][place] [address]- 6[address] Jan, [facility] [place] [facility] [address] [id number] [place] [address]- [address] Dec, [facility] [place] [facility] [address] [id number] [place] [address]- 6436 Dec, [facility] [place] [facility] [address] [id number] [place] [address]- 6896 Dec, [facility] [place] [facility] [address] [id number] [place] [address]- 3068 Dec, [facility] [place] [facility] [address] [id number] [place] [address]- 2908 Nov, [facility] [place] [facility] [address] [id number] [place] [address]- 9306 Nov, 2014 [facility] [place] [facility] [address] [facility] [id number] [place] [address]- 1183 18 Nov, 2014 [facility] [place] [facility] [address] [facility] [id number] [place] [address]- 3014 18 Nov, 2014 [facility] [place] [facility] [address] [facility] [id number] [place] [address]- 6822 17 Nov, 2014 [facility] [place] [facility] [address] [facility] [id number] [place] [address]- 4570 17 Nov, 2014 [facility] [place] [facility] [address] [facility] [id number] [place] [address]- 5920 13 Nov, 2014 [facility] [place] [facility] [address] [facility] [id number] [place] [address]- 6164 13 Nov, 2014 [facility] [place] [facility] [address] [id number] [place] [address]- 9860 12 Nov, 2014 [facility] [place] [facility] [address] [facility] [id number] [place] [address]- 0418 11 Nov, 2014 [facility] [place] [facility] [address] [facility] [id number] [place] [address]- 4393 11 Nov, 2014 [facility] [place] [facility] [address] [id number] [place] [address]- 3183 Nov, [facility] [place] [facility] [address] [id number] [place] [address]- 3450 Nov, [facility] [place] [facility] [address] [id number] [place] [address]- 7852 Oct, [facility] [place] [facility] [address] [id number] [place] [address]- 1412 Oct, [facility] [place] [facility] [address] [id number] [place] [address]- 4258 Oct, [facility] [place] [facility] [address] [id number] [place] [address]- 0622 Oct, [facility] [place] [facility] [address] [id number] [place] [address]- 0695 Oct, [facility] [place] [facility] [address] [id number] [place] [address]- 2024 Oct, [facility] [place] [facility] [address] [id number] [place] [address]- 1649 Oct, [facility] [place] [facility] [address] [id number] [place] [address]- 2318 Oct, [facility] [place] [facility] [address] [id number] [place] [address]- 4150 Sep, [facility] [place] [facility] [address] [id number] [place] [address]- 0615 Sep, [facility] [place] [facility] [address] [id number] [place] [address]- 4089 Aug, [facility] [place] [facility] [address] [id number] [place] [address]- 6260 Aug, [facility] [place] [facility] [address] [id number] [place] [address]- 1970 Aug, [facility] [place] [facility] [address] [id number] [place] [address]- 3594 Aug, [facility] [place] [facility] [address] [id number] [place] [address]- 0645 Jul, [facility] [place] [facility] [address] [id number] [place] [address]- 5078 Jul, [facility] [place] [facility] [address] [id number] [place] [address]- 4116 Jun, [facility] [place] [facility] [address] [id number] [place] [address]- 4378 29 Jun, 2013 [facility] [place] [facility] [address] [id number] [place] [address]- 8480 16 Jun, 2014 [facility] [place] [facility] [address] [id number] [place] [address]- 0640 16 Jun, 2014 [facility] [place] [facility] [address] [id number] [place] [address]- 6931 Jun, [facility] [place] [facility] [address] [id number] [place] [address]- 7384 11 Jun, 2014 [facility] [place] [facility] [address] [id number] [place] [address]- 5547 04 Jun, 2014 [facility] [place] [facility] [address] [id number] [place] [address]- 1946 04 Jun, 2014 [facility] [place] [facility] [address] [id number], [place] [address]- 9026 Jun, [facility] [place] [facility] [address] [id number][place] [address]- 9825 Jun, 2013 [facility] [place] [facility] [address] [id number] [place] [address]- 4416 Jun, [facility] [place] [facility] [address] [id number] [place] [address]- 6850 May, [facility] [place] [facility] [address] [id number] [place] [address]- 4825 May, [facility] [place] [facility] [address] [id number] [place] [address]- 5511 Apr, 2013 [facility] [place] [facility] [address] [id number] [place] [address]- 2570 Apr, [facility] [place] [facility] [address] [id number] [place] [address]- 4747 Apr, [facility] [place] [facility] [address] [id number] [place] [address]- 0100 Apr, 2013 [facility] [place] [facility] [address] [id number] [place] [address]- 7207 Apr, [facility] [place] [facility] [address] [id number] [place] [address]- 0554 Apr, [facility] [place] [facility] [address] [id number] [place] [address]- 0676 Apr, [facility] [place] [facility] [address] [id number] [place] [address]- 6787 Apr, [facility] [place] [facility] [address] [id number] [place] [address]- 5349 Apr, [facility] [place] [facility] [address] [id number] [place] [address]- 8585 Apr, [facility] [place] [facility] [address] [id number] [place] [address]- 1301 Mar, [facility] [place] [facility] [address] [id number] [place] [address]- 6560 Mar, [facility] [place] [facility] [address] [id number] [place] [address]- 6133 Mar, [facility] [place] [facility] [address] [id number] [place] [address]- 7710 Mar, [facility] [place] [facility] [address] [id number] [place] [address]- 1045 Mar, [facility] [place] [facility] [address] [id number] [place] [address]- 5415 Mar, [facility] [place] [facility] [address] [id number] [place] [address]- 2058 Mar, [facility] [place] [facility] [address] [id number] [place] [address]- 2682 Mar, [facility] [place] [facility] [address] [id number] [place] [address]- 3494 Mar, [facility] [place] [facility] [address] [id number] [place] [address]- 2510 Mar, [facility] [place] [facility] [address] [id number] [place] [address]- 8082 Mar, [facility] [place] [facility] [address] [id number] [place] [address]- 5666 Mar, [facility] [place] [facility] [address] [id number] [place] [address]- 8012 Mar, [facility] [place] [facility] [address] [id number] [place] [address]- 2738 Mar, [facility] [place] [facility] [address] [id number] [place] [address]- 4583 Mar, [facility] [place] [facility] [address] [id number] [place] [address]- 0484 Mar, [facility] [place] [facility] [address] [id number] [place] [address]- 7377 February, [facility] [place] [facility] [address] [id number] [place] [address]- 8887 February, [facility] [place] [facility] [address] [id number] [place] [address]- 7262 Jan, [facility] [place] [facility] [address] [id number] [place] [address]- 7447 Jan, [facility] [place] [facility] [address] [id number] [place] [address]- 0385 Jan, [facility] [place] [facility] [address] [id number] [place] [address]- 2546 Jan, [facility] [address] [id number] [place] [address]- 8521 Dec, [facility] [address] [id number] [place] [address]- 1556 Dec, [facility] [address] [facility] [id number] [place] [address]- 5202 Dec, [facility] [address] [id number] [place] [address]- 4375 Dec, [facility] [address] [id number] [place] [address]- 9064 Nov, [facility] [address] [id number] [place] [address]- 7902 Nov, [facility] [address] [facility] [id number] [place] [address]- 6104 Oct, [facility] [address] [id number] [place] [address]- 5974 Oct, [facility] [address] [facility] [id number] [place] [address]- 3337 Oct, [facility] [address] [facility] [id number] [place] [address]- 5669 Oct, [facility] [address] [facility] [id number], [place] [address]- 7593 Oct, [facility] [address] [id number], [place] [address]- 7897 Oct, [facility] [address] [facility] [id number] [place] [address]- 8368 30 Jun, 2013 [facility] [address] [facility] [id number] [place] [address]- 6027 Jun, [facility] [address] [facility] [id number] [place] [address]- 2827 Jun, [facility] [address] [id number] [place] [id number] Jun, [facility] [place] [address] [id number] [place] [address]- 7755 Apr, [facility] [address] [id number] [place] [address] Apr, [facility] [address] [id number] [place] [address] Apr, [facility] [address] [id number] [place] [address] Apr, [facility] [address] [id number] [place] [address] Mar, [facility] [address] [id number] [place] [address] Mar, [facility] [address] [id number] [place] [address] February, [facility] [address] [id number] [place] [address] Jan, [facility] [address] [id number] [place] [address] Jan, [facility] [address] [id number] [place] [address] Jan, [facility] [address] [id number] [place] [address] Dec, [facility] [address] [id number] [place] [address] Dec, [facility] [address] [id number] [place] [address] Dec, [facility] [address] [id number] [place] [address] Nov, [facility] [address] [id number] [place] [address] Nov, [facility] [address] [id number] [place] [address] Oct, [facility] [place] [facility] [address] [id number] [place] [address] Oct, [facility] [place] [facility] [address] [id number] [place] [address] Oct, [facility] [place] [facility] [address] [id number] [place] [address] Sep, [facility] [place] [facility] [address] [id number] [place] [address] Sep, [facility] [place] [facility] [address] [id number] [place] [address] Sep, [facility] [place] [facility] [address] [facility] [id number] [place] [address] Sep, [facility] [place] [facility] [address] [id number] [place] [address] Sep, [facility] [place] [facility] [address] [id number] [place] [address] Sep, [facility] [place] [facility] [address] [facility] [id number][place] [address] Sep, [facility] [place] [facility] [address] [facility] [id number], [place] [address] Sep, [facility] [place] [facility] [address] [id number], [place] [address] Aug, [facility] [place] [facility] [address] [id number] [place] [address] Aug, [facility] [place] [facility] [address] [id number], [place] [address] Jul, [facility] [place] [facility] [address] [id number], [place] [address] Jul, [facility] [place] [facility] [address] [id number], [place] [address] Jul, [facility] [place] [facility] [address] [id number] [place] [address] Jul, [facility] [place] [facility] [address] [facility] [id number], [place] [address] 21 Jun, 2012 [facility] [place] [facility] [address] [id number], [place] [address] 13 Jun, 2012 [facility] [place] [address] [id number] [id number] 13 Jun, 2012 [facility] [address] [facility] [id number][place] [id number] Jun, 2012 [facility] [place] [facility] [address] [id number], [place] [address] 11 Jun, 2012 [facility] [place] [facility] [address] [id number], [place] [address] 10 Jun, 2012 [facility] [place] [facility] [address] [id number], [place] [address] 08 Jun, 2012 [facility] [place] [facility] [address] [id number], [place] [address] 05 Jun, 2012 [facility] [place] [facility] [address] [facility] [id number], [place] [address] 31 May, 2012 [facility] [place] [facility] [address] [id number][place] [address] 30 May, 2012 [facility] [place] [facility] [address] [id number], [place] [address] May, [facility] [place] [facility] [address] [id number] [place] [address] 17 May, 2012 [facility] [place] [facility] [address] [facility] [id number], [place] [address] 16 May, 2012 [facility] [place] [facility] [address] [id number][place] [address] 08 May, 2012 [facility] [place] [facility] [address] [id number] [place] [id number] May, [facility] [place] [facility] [address] [id number] [place] [address] Apr, [facility] [address] [id number] [place] [id number] Apr, [facility] [place] [facility] [address] [id number] [place] [address] Apr, [facility] [place] [facility] [address] [id number] [place] [address] Apr, [facility] [place] [facility] [address] [id number] [place] [address] Apr, [facility] [place] [facility] [address] [id number] [place] [address] Apr, [facility] [place] [facility] [address] [id number] [place] [address]89 Apr, [facility] [place] [facility] [address] [id number] [place] [address] Apr, [facility] [place] [facility] [address] [id number] [place] [address] Apr, [facility] [place] [facility] [address] [id number] [place] [address]16 Apr, [facility] [place] [facility] [address] [id number] [place] [address] Mar, [facility] [place] [facility] [address] [id number] [place] [address] February, [facility] [place] [facility] [address] [id number] [place] [address] Jan, [facility] [place] [facility] [address] [id number] [place] [address] Dec, [facility] [place] [facility] [address] [id number] [place] [address] Dec, [facility] [place] [facility] [address] [id number] [place] [id number] Nov, [facility] [address] [id number] [place] [address] Nov, [facility] [place] [facility] [address] [id number] [place] [address] Nov, [facility] [place] [facility] [address] [id number] [place] [address] Nov, [facility] [place] [facility] [address] [id number] [place] [address] Nov, [facility] [place] [facility] [address] [id number] [place] [address] Nov, [facility] [address] [id number] [place] [address] 25[address] Nov, [facility] [address] [id number] [place] [id number] Oct, [facility] [address] [id number] [place] [address] Oct, [facility] [address] [id number] [place] [address] Oct, [facility] [place] [facility] [address] [id number] [place] [address] Oct, [facility] [address] [id number] [place] [address]286 Oct, [facility] [place] [facility] [address] [id number], [place] [address] Oct, [facility] [place] [facility] [address] [id number] [place] [address] Sep, [facility] [place] [facility] [address] [id number], [place] [address] Aug, [facility] [place] [facility] [address] [id number] [place] [address] Jul, [facility] [address] [facility] [id number] [place] [address] Jul, [facility] [address] [facility] [id number], [place] [address] Jul, [facility] [address] [facility] [id number], [place] [address] Jul, [facility] [address] [facility] [id number], [place] [address] Jul, IMMUNIZATIONS No Known Immunizations SOCIAL HISTORY Never Assessed REASON FOR VISIT Medication refill request PLAN OF CARE VITAL SIGNS MEDICATIONS Medication Instructions Dosage Frequency Start Date End Date Duration Status Clopidogrel Bisulfate 75 MG TAKE 1 TABLET ONE TIME DAILY 90 days Active RESULTS No Results PROCEDURES [...]
--- OUTSIDE RECORDS SUMMARY | 2018-12-17 08:15 | XMS REPORT ---
Author Author ANTONIO GONZALEZ [facility] Address [address] [place] [address] Care Team Providers Care Heel Sorter Name Role Phone ANTONIO GONZALEZ Unavailable PROBLEMS Type Condition ICD9-CM Code DNN51-UG Code Onset Dates Condition Status SNOMED Code Problem Leg cramps, sleep related G47.62 Active 69362972 Problem Recurrent pneumonia J18.9 Active 557616460 Problem COPD exacerbation J44.1 Active 802243036 Problem Other obesity due to excess calories E66.09 Active 405389010 Problem History of shingles Z86.19 Active 692838617938540 Problem Clostridium difficile diarrhea A04.7 Active 3959317575610 Problem Hypomagnesemia E83.42 Active 601750513 Problem Body mass index (BMI) of 30.0-30.9 in adult Z68.30 Active 185138919 Problem Hyperlipidemia LDL goal <70 E78.5 Active 05924872 Problem Encounter for Zostavax administration Z23 Active 119683394 Problem High triglycerides E78.1 Active 473886813 Problem Arthritis, lumbar spine M47.9 Active 298816886 Problem Diabetes type 2, controlled E11.9 Active 14542343 Problem 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 Active 715373078 Problem Controlled type 2 diabetes mellitus without complication, without long -term current use of insulin E11.9 Active 845770695 Problem Essential hypertension with goal blood pressure less than 130\/80 I10 Active 40610987 Problem Hyperlipidemia LDL goal <70 E78.5 Active 89997039 Problem Pure hypercholesterolemia E78.0 Active 338357392 Problem Uncontrolled type 2 diabetes mellitus without complication, without long-term current use of insulin E11.65 Active 893113681 ALLERGIES No Information ENCOUNTERS Encounter Location Date Diagnosis [facility] [address] [facility] [id number], [place] [address] February, [facility] [address] [address] [id number][place] [id number] February, Diabetes type 2, controlled E11.9 ; Other obesity due to excess calories E66.09 ; Body mass index (BMI) of 30.0-30.9 in adult Z68.30 and History of shingles Z86.[address] [facility] [address] [id number][place] [id number] Jan, Uncontrolled type 2 diabetes mellitus without complication, without long-term current use of insulin E11.[address] [facility] [address] [id number][place] [address] Nov, Hypomagnesemia E83.42 and Uncontrolled type 2 diabetes mellitus without complication, without long-term current use of insulin E11.[address] [facility] [address] [id number][place] [address] Nov, Uncontrolled type 2 diabetes mellitus without complication, without long-term current use of insulin E11.65 ; Hypomagnesemia E83.42 and Hyperlipidemia LDL goal <70 [address] [facility] [address] [id number], [place] [address] Oct, [facility] [address] [facility] [id number], [place] [address] Sep, [facility] [address] [address] [id number][place] [address] Aug, [facility] [address] [address] [id number], [place] [address] Aug, Hypomagnesemia E83.[address] [facility] [address] [id number][place] [address] Aug, Uncontrolled type 2 diabetes mellitus without complication, without long-term current use of insulin E11.65 and Hypomagnesemia E83.[address] [facility] [address] [id number][place] [address] Aug, [facility] [address] [address] [id number][place] [address] Jul, COPD exacerbation J44.[address] [facility] [address] [id number][place] [address] Jul, Clostridium difficile diarrhea A04.[address] [facility] [address] [id number][place] [address] Jun, [facility] [address] [id number], [place] [address] May, Clostridium difficile diarrhea A04.[address] [facility] [address] [id number], [place] [address] May, Clostridium difficile diarrhea A04.[address] [facility] [address] [id number], [place] [address] May, Hypomagnesemia E83.[address] [facility] [address] [id number], [place] 514[address]71 May, Uncontrolled type 2 diabetes mellitus without complication, without long-term current use of insulin E11.65 ; Clostridium difficile diarrhea A04.7 and Hypomagnesemia E83.[address] [facility] [address] [id number][place] [address] May, [facility] [address] [id number], [place] [address] May, [facility] [address] [address] [id number][place] [address] Apr, Clostridium difficile diarrhea A04.7 and Hypomagnesemia E83.[address] [facility] [address] [id number], [place] [address] Apr, [facility] [address] [address] [id number], [place] [address]884455 Apr, High triglycerides E78.[address] [facility] [address] [id number], [place] [address]16716 February, Recurrent pneumonia J18.[address] [facility] [address] [id number], [place] [address] February, Hypomagnesemia E83.42 [facility] [address] [facility] [id number] [place] [address] February, [facility] [address] [address] [id number] [place] [address] February, COPD exacerbation J44.[address] [facility] [address] [id number] [place] [id number] February, [facility] [address] [address] [id number] [place] [address] Jan, Uncontrolled type 2 diabetes mellitus without complication, without long-term current use of insulin E11.65 and Arthritis, lumbar spine M47.[address] [facility] [address] [id number], [place] [address]661 Dec, [facility] [address] [id number], [place] [address] Dec, [facility] [address] [address] [id number] [place] [address] Oct, [facility] [address] [address] [id number], [place] 67[address]8416 Oct, Uncontrolled type 2 diabetes mellitus without complication, without long-term current use of insulin E11.[address] [facility] [address] [id number] [place] [address] Sep, Uncontrolled type 2 diabetes mellitus without complication, without long-term current use of insulin E11.[address] [facility] [address] [id number] [place] [address] Aug, [facility] [address] [address] [id number] [place] [address] Aug, [facility] [address] [facility] [id number] [place] [address] Aug, [facility] [address] [id number], [place] [address]96 Jul, [facility] [address] [id number], [place] [address]334[address]366 Jul, Uncontrolled type 2 diabetes mellitus without complication, without long-term current use of insulin E11.65 ; Encounter for immunization Z23 and Leg cramps, sleep related G47.[address] [facility] [address] [id number], [place] [address]23765 May, [facility] [address] [address] [id number], [place] 475647898 Apr, [facility] [address] [id number], [place] [address]166 Apr, Uncontrolled type 2 diabetes mellitus without complication, without long-term current use of insulin E11.65 and Hyperlipidemia LDL goal <70 E78.5 [facility] [address] [id number], [place] [id number] Mar, [facility] [address] [id number], [place] [address] Mar, [facility] [address] [id number], [place] [address] Mar, Obstructive chronic bronchitis with exacerbation J44.1 [facility] [address] [facility] [id number], [place] [address] February, [facility] [address] [id number], [place] 47585[address]63 February, [facility] [address] [facility] [id number], [place] [address] February, [facility] [address] [id number], [place] [address]5834 February, Controlled type 2 diabetes mellitus without complication, without long-term current use of insulin E11.9 [facility] [address] [facility] [id number], [place] [address] February, [facility] [address] [id number], [place] [id number] Jan, Pneumonia of both lungs due to infectious organism, unspecified part of lung J18.9 ; Pure hypercholesterolemia E78.0 and Hx of half-way use 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 [facility] [address] [id number][place] [address] Jan, [facility] [address]00565[address], [place] [address] Jan, [facility] [address] [id number], [place] [address]1884 Dec, Arthritis, lumbar spine M47.9 ; Essential hypertension with goal blood pressure less than 130\/80 I10 and Pneumonia of left lower lobe due to infectious organism J18.[address] [id number], [place] [address] Dec, [address] [id number], [place] 83[address]75913 Nov, Arthritis, lumbar spine M47.9 [place] [address] [id number] [place] [address] Nov, [facility] [id number] [place] [address] Oct, [address] [id number], [place] 325[address]139 Oct, High triglycerides E78.[id number] [place] [id number] Oct, Diabetes type 2, controlled E11.9 ; Arthritis, lumbar spine M47.9 and Encounter for Zostavax administration Z23 [facility] [id number] [place] [address]- [address]70 Sep, [facility] [id number] [place] [address]- 6214 Aug, [facility] [id number] [place] [address]- 4332 Aug, [address] [id number], [place] [address]63[address]197 Jul, [facility] [id number][place] [id number] Jul, Encounter for immunization Z23 [facility] [address] [facility] [id number], [place] [address] Jun, [facility] [address] [id number], [place] 226[address]3986 Jun, [facility] [address] [id number], [place] [address]75198876 Jun, Diabetes 250.00 ; Interstitial pulmonary disease 515 and DJD ( degenerative joint disease), lumbosacral 722.52 [facility] [address] [id number], [place] [id number] Apr, [facility] [address] [facility] [id number], [place] [id number] Apr, [facility] [address] [id number], [place] [address]74[address]239 Mar, DJD (degenerative joint disease), lumbosacral 722.52 and Lumbago 724.2 [facility] [address] [id number], [place] [address]35602318 February, Lumbago 724.2 and Abnormal x-ray of thoracic spine 793.7 [facility] [address] [id number], [place] 478244548 February, Gout of knee 274.00 ; Lumbago with sciatica 724.3 and Interstitial pulmonary disease 515 [facility] [address] [id number], [place] 275[address]50 February, [facility] [address] [facility] [id number], [place] [address] Jan, [facility] [address] [facility] [id number], [place] [address]- 9[address] Jan, [facility] [place] [facility] [address] [id number] [place] [address]- 9346 Dec, [facility] [place] [facility] [address] [id number] [place] [address]- 9501 Dec, [facility] [place] [facility] [address] [id number] [place] [address]- 0081 Dec, [facility] [place] [facility] [address] [id number] [place] [address]- 5729 Dec, [facility] [place] [facility] [address] [id number] [place] [address]- 9064 Nov, [facility] [place] [facility] [address] [id number] [place] [address]- 9391 Nov, 2014 [facility] [place] [facility] [address] [facility] [id number] [place] [address]- 2055 Nov, 2014 [facility] [place] [facility] [address] [id number] [place] [address]- 2136 18 Nov, 2014 [facility] [place] [facility] [address] [id number] [place] [address]- 2892 17 Nov, 2014 [facility] [place] [facility] [address] [facility] [id number] [place] [address]- 4183 17 Nov, 2014 [facility] [place] [facility] [address] [facility] [id number] [place] [address]- 4706 13 Nov, 2014 [facility] [place] [facility] [address] [id number] [place] [address]- 2823 13 Nov, 2014 [facility] [place] [facility] [address] [id number] [place] [address]- 1793 12 Nov, 2014 [facility] [place] [facility] [address] [id number] [place] [address]- 0318 11 Nov, 2014 [facility] [place] [facility] [address] [facility] [id number] [place] [address]- 4589 Nov, 2014 [facility] [place] [facility] [address] [facility] [id number] [place] [address]- 1757 Nov, [facility] [address] [id number] [place] [address]- 2332 Nov, [facility] [place] [facility] [address] [id number] [place] [address]- 9977 Oct, [facility] [address] [id number] [place] [address]- 3433 Oct, [facility] [address] [id number] [place] [address]- 9760 Oct, [facility] [address] [id number] [place] [address]- 6344 Oct, [facility] [address] [id number] [place] [address]- 9227 Oct, [facility] [address] [id number] [place] [address]- 4643 Oct, [facility] [address] [id number] [place] [address]- 3367 Oct, [facility] [address] [id number] [place] [address]- 9966 Oct, [facility] [address] [id number] [place] [address]- 2353 Sep, [facility] [place] [facility] [address] [id number] [place] [address]- 1341 Sep, [facility] [place] [facility] [address] [id number] [place] [address]- 9996 Aug, [facility] [place] [facility] [address] [id number] [place] [address]- 9384 Aug, [facility] [place] [facility] [address] [id number] [place] [address]- 1173 Aug, [facility] [address] [id number] [place] 1349 Aug, [facility] [place] [facility] [address] [id number] [place] [address]- 2413 Jul, [facility] [place] [facility] [address] [id number] [place] [address]- 8041 Jul, [facility] [place] [facility] [address] [id number] [place] [address]- 6312 29 Jun, 2014 [facility] [place] [facility] [address] [id number] [place] [address]- 6256 29 Jun, 2013 [facility] [place] [facility] [address] [id number] [place] [address]- 8278 16 Jun, 2014 [facility] [place] [facility] [address] [id number] [place] [address]- 2127 16 Jun, 2013 [facility] [place] [facility] [address] [id number] [place] [address]- 3376 Jun, [facility] [place] [facility] [address] [id number] [place] [address]- 6056 Jun, [facility] [place] [facility] [address] [id number] [place] [address]- 3415 04 Jun, 2014 [facility] [place] [facility] [address] [id number] [place] [address]- 8005 04 Jun, 2014 [facility] [place] [facility] [address] [id number], [place] [address]- 6104 Jun, [facility] [place] [facility] [address] [id number], [place] [address]- 5865 Jun, [facility] [place] [facility] [address] [id number] [place] [address]- 6125 Jun, [facility] [place] [facility] [address] [id number] [place] [address]- 8431 May, [facility] [place] [facility] [address] [id number], [place] [address]- 4266 May, [facility] [place] [facility] [address] [id number], [place] [address]- 5362 Apr, [facility] [place] [facility] [address] [id number] [place] [address]- 3005 Apr, [facility] [place] [facility] [address] [id number] [place] [address]- 1651 Apr, [facility] [place] [facility] [address] [id number] [place] [address]- 2680 Apr, [facility] [place] [facility] [address] [id number] [place] [address]- 9216 Apr, [facility] [place] [facility] [address] [id number] [place] [address]- 3519 Apr, [facility] [place] [facility] [address] [id number] [place] [address]- 6424 Apr, [facility] [place] [facility] [address] [id number] [place] [address]- 3262 Apr, [facility] [place] [facility] [address] [id number] [place] [address]- 8517 Apr, [facility] [place] [facility] [address] [id number] [place] [address]- 9753 Apr, [facility] [place] [facility] [address] [id number] [place] [address]- 6908 Mar, [facility] [place] [facility] [address] [id number] [place] [address]- 4191 Mar, [facility] [place] [facility] [address] [id number] [place] [address]- 2606 Mar, [facility] [place] [facility] [address] [id number] [place] [address]- 9324 Mar, [facility] [place] [facility] [address] [id number] [place] [address]- 9407 Mar, [facility] [place] [facility] [address] [id number] [place] [address]- 6068 Mar, [facility] [place] [facility] [address] [id number] [place] [address]- 3196 Mar, [facility] [place] [facility] [address] [id number] [place] [address]- 4637 Mar, [facility] [place] [facility] [address] [id number] [place] [address]- 3989 Mar, [facility] [place] [facility] [address] [id number] [place] [address]- 1767 Mar, [facility] [place] [facility] [address] [id number] [place] [address]- 1490 Mar, [facility] [place] [facility] [address] [id number] [place] [address]- 0327 Mar, [facility] [place] [facility] [address] [id number] [place] [address]- 3671 Mar, [facility] [place] [facility] [address] [id number] [place] [address]- 4392 Mar, [facility] [place] [facility] [address] [id number] [place] [address]- 0510 Mar, [facility] [place] [facility] [address] [id number] [place] [address]- 7757 Mar, [facility] [place] [facility] [address] [id number] [place] [address]- 2756 February, [facility] [place] [facility] [address] [id number] [place] [address]- 3980 February, [facility] [place] [facility] [address] [id number] [place] [address]- 9255 Jan, [facility] [place] [facility] [address] [id number] [place] [address]- 9581 Jan, [facility] [place] [facility] [address] [id number] [place] [address]- 2427 Jan, [facility] [place] [facility] [address] [id number] [place] [address]- 4514 Jan, [facility] [address] [id number] [place] [address]- 1197 Dec, [facility] [address] [id number] [place] [address]- 0274 Dec, [facility] [address] [facility] [id number] [place] [address]- 8697 Dec, [facility] [address] [id number] [place] [address]- 5041 Dec, [facility] [address] [id number] [place] [address]- 0649 Nov, [facility] [address] [facility] [id number] [place] [address]- 6060 Nov, [facility] [address] [id number] [place] [address]- 8158 Oct, [facility] [place] [facility] [address] [id number] [place] [address]- 1174 Oct, [facility] [address] [id number] [place] [address]- 5460 Oct, [facility] [address] [facility] [id number] [place] [address]- 6675 Oct, [facility] [address] [id number], [place] [address]- 6967 Oct, [facility] [place] [facility] [address] [id number], [place] [address]- 8512 Oct, [facility] [address] [facility] [id number] [place] [address]- 0990 Jun, [facility] [place] [facility] [address] [facility] [id number] [place] [address]- 1596 Jun, [facility] [address] [facility] [id number] [place] [address]- 6826 Jun, [facility] [address] [id number][place] [id number] Jun, [facility] [address] [id number] [place] [address] Apr, [facility] [address] [facility] [id number], [place] [address] Apr, [facility] [address] [facility] [id number] [place] [address] Apr, [facility] [address] [facility] [id number] [place] [address] Apr, [facility] [address] [facility] [id number] [place] [address] Mar, [facility] [address] [facility] [id number] [place] [address] Mar, [facility] [address] [id number], [place] [address] February, [facility] [address] [facility] [id number], [place] [address] Jan, [facility] [address] [facility] [id number] [place] [address] Jan, [facility] [address] [id number] [place] [address] Jan, [facility] [address] [facility] [id number], [place] [address] Dec, [facility] [address] [facility] [id number], [place] [address] Dec, [facility] [place] [facility] [address] [facility] [id number], [place] [address] Dec, [facility] [place] [facility] [address] [facility] [id number], [place] [address] Nov, [facility] [address] [facility] [id number], [place] [address] Nov, [facility] [address] [id number] [place] [address] Oct, [facility] [place] [facility] [address] [id number] [place] [address] Oct, [facility] [place] [facility] [address] [id number] [place] [address] Oct, [facility] [address] [id number] [place] [address] Sep, [facility] [address] [id number] [place] [address] Sep, [facility] [place] [facility] [address] [id number] [place] [address]887 Sep, [facility] [address] [id number] [place] [address] Sep, [facility] [address] [id number] [place] [address] Sep, [facility] [place] [facility] [address] [id number] [place] [address] Sep, [facility] [place] [facility] [address] [id number] [place] [address] Sep, [facility] [place] [facility] [address] [id number] [place] [address] Sep, [facility] [place] [facility] [address] [id number] [place] [address] Aug, [facility] [place] [facility] [address] [id number] [place] [address] Aug, [facility] [place] [facility] [address] [id number] [place] [address] Jul, [facility] [place] [facility] [address] [id number] [place] [address] Jul, [facility] [place] [facility] [address] [id number], [place] [address] Jul, [facility] [place] [facility] [address] [id number] [place] [address] Jul, [facility] [place] [facility] [address] [facility] [id number], [place] [address] 21 Jun, 2012 [facility] [place] [facility] [address] [facility] [id number], [place] [address] 13 Jun, 2012 [facility] [address] [id number] [id number] 13 Jun, 2012 [facility] [address] [facility] [id number][place] [id number] 13 Jun, 2012 [facility] [place] [facility] [address] [id number] [place] [address] 11 Jun, 2012 [facility] [place] [facility] [address] [id number], [place] [address] 10 Jun, 2012 [facility] [place] [facility] [address] [id number] [place] [address] 08 Jun, 2012 [facility] [place] [facility] [address] [facility] [id number], [place] [address] 05 Jun, 2012 [facility] [place] [facility] [address] [id number], [place] [address] 31 May, 2012 [facility] [place] [facility] [address] [id number], [place] [address] 30 May, 2012 [facility] [facility] [address] [id number], [place] [address] 23 May, 2012 [facility] [facility] [address] [facility] [id number], [place] [address] 17 May, 2012 [facility] [place] [facility] [address] [facility] [id number], [place] [address] 16 May, 2012 [facility] [facility] [address] [facility] [id number], [place] [address] 08 May, 2012 [facility] [address] [id number] [id number] May, [facility] [address] [id number] [place] [address] Apr, [facility] [address] [id number] [place] [id number] Apr, [facility] [place] [facility] [address] [id number] [place] [address] Apr, [facility] [place] [facility] [address] [id number] [place] [address] Apr, [facility] [address] [id number] [place] [address] Apr, [facility] [address] [id number] [place] [address] Apr, [facility] [address] [id number] [place] [address] Apr, [facility] [place] [facility] [address] [id number] [place] [address] Apr, [facility] [address] [id number] [place] [address] Apr, [facility] [place] [facility] [address] [id number] [place] [address] Apr, [facility] [place] [facility] [address] [id number] [place] [address] Mar, [facility] [facility] [address] [id number] [place] [address] February, [facility] [place] [facility] [address] [id number] [place] [address] Jan, [facility] [place] [facility] [address] [id number] [place] [address] Dec, [facility] [place] [facility] [address] [id number] [place] [address] Dec, [facility] [address] [facility] [id number] [place] [id number] Nov, [facility] [address] [id number] [place] [address] Nov, [facility] [address] [id number] [place] [address] Nov, [facility] [address] [id number] [place] [address] Nov, [facility] [address] [id number] [place] [address] Nov, [facility] [address] [id number] [place] [address] Nov, [facility] [address] [facility] [id number] [place] [address] Nov, [facility] [address] [facility] [id number] [place] [id number] Oct, [facility] [address] [id number] [place] [address] Oct, [facility] [address] [id number] [place] [address] Oct, [facility] [address] [id number] [place] [address] Oct, [facility] [address] [id number] [place] [address] Oct, [facility] [address] [id number] [place] [address] Oct, [facility] [address] [id number] [place] [address] Sep, [facility] [facility] [address] [id number] [place] [address] Aug, [facility] [address] [id number] [place] [address] Jul, [facility] [address] [facility] [id number] [place] [address] Jul, [facility] [address] [facility] [id number], [place] [address] Jul, [facility] [address] [facility] [id number], [place] [address] Jul, [facility] [address] [facility] [id number], [place] [address] Jul, IMMUNIZATIONS No Known Immunizations SOCIAL HISTORY Never Assessed REASON FOR VISIT Eye Exam PLAN OF CARE VITAL SIGNS MEDICATIONS Unknown [...]
--- OUTSIDE RECORDS SUMMARY | 2018-12-17 08:15 | XMS REPORT ---
Author Author PHYLLISJACKIE MARIBEL [facility] Address [address] [place] [address] Care Team Providers Care Trade Specialist Name Role Phone MARIBEL GARY Unavailable PROBLEMS Type Condition ICD9-CM Code VTG95-XZ Code Onset Dates Condition Status SNOMED Code Problem Controlled type 2 diabetes mellitus without complication, without long -term current use of insulin E11.9 Active 073180138 Problem Hyperlipidemia LDL goal <70 E78.5 Active 72546943 Problem Uncontrolled type 2 diabetes mellitus without complication, without long-term current use of insulin E11.65 Active 182829433 Problem Hyperlipidemia LDL goal <70 E78.5 Active 02243923 Problem Clostridium difficile diarrhea A04.7 Active 2073963612524 Problem COPD exacerbation J44.1 Active 420486280 Problem Leg cramps, sleep related G47.62 Active 88261802 Problem Hypomagnesemia E83.42 Active 954306348 Problem Recurrent pneumonia J18.9 Active 097180767 Problem Arthritis, lumbar spine M47.9 Active 692522776 Problem High triglycerides E78.1 Active 923138317 Problem Essential hypertension with goal blood pressure less than 130\/80 I10 Active 69970280 Problem Diabetes type 2, controlled E11.9 Active 01022880 Problem 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 Active 288151050 Problem Encounter for Zostavax administration Z23 Active 686910140 Problem Pure hypercholesterolemia E78.0 Active 493712608 ALLERGIES No Information ENCOUNTERS Encounter Location Date Diagnosis [facility] [address] [id number][place] [id number] February, [facility] [address] [id number][place] [id number] Jan, Uncontrolled type 2 diabetes mellitus without complication, without long-term current use of insulin E11.65 [facility] [address] [id number][place] [address] Nov, Hypomagnesemia E83.42 and Uncontrolled type 2 diabetes mellitus without complication, without long-term current use of insulin E11.[address] [facility] [address] [id number][place] [address] Nov, Uncontrolled type 2 diabetes mellitus without complication, without long-term current use of insulin E11.65 ; Hypomagnesemia E83.42 and Hyperlipidemia LDL goal <[address] [facility] [address] [id number][place] [address] Oct, [facility] [address] [facility] [id number], [place] [address] Sep, [facility] [address] [id number][place] [address] Aug, [facility] [address] [id number], [place] [address] Aug, Hypomagnesemia E83.[address] [facility] [address] [id number][place] [address] Aug, Uncontrolled type 2 diabetes mellitus without complication, without long-term current use of insulin E11.65 and Hypomagnesemia E83.[address] [facility] [address] [id number], [place] [address] Aug, [facility] [address] [id number], [place] [address] Jul, COPD exacerbation J44.[address] [facility] [address] [id number], [place] [address] Jul, Clostridium difficile diarrhea A04.[address] [facility] [address] [id number], [place] [address] Jun, [facility] [address] [id number], [place] [address] May, Clostridium difficile diarrhea A04.[address] [facility] [address] [id number] [place] [address] May, Clostridium difficile diarrhea A04.[address] [facility] [address] [id number] [place] [address] May, Hypomagnesemia E83.[address] [facility] [address] [id number], [place] [address] May, Uncontrolled type 2 diabetes mellitus without complication, without long-term current use of insulin E11.65 ; Clostridium difficile diarrhea A04.7 and Hypomagnesemia E83.[address] [facility] [address] [id number], [place] [address] May, [facility] [address] [id number][place] [address] May, [facility] [address] [id number][place] [address] Apr, Clostridium difficile diarrhea A04.7 and Hypomagnesemia E83.[address] [facility] [address] [id number], [place] [address] Apr, [facility] [address] [id number][place] [address] Apr, High triglycerides E78.[address] [facility] [address] [id number], [place] [address] February, Recurrent pneumonia J18.[address] [facility] [address] [id number], [place] [address] February, Hypomagnesemia E83.42 [facility] [address] [facility] [id number], [place] [address] February, [facility] [address] [id number][place] [address] February, COPD exacerbation J44.[address] [facility] [address] [id number], [place] [address] February, [facility] [address] [id number], [place] [address] Jan, Uncontrolled type 2 diabetes mellitus without complication, without long-term current use of insulin E11.65 and Arthritis, lumbar spine M47.[address] [facility] [address] [id number], [place] [address] Dec, [facility] [address] [id number], [place] 138[address] Dec, [facility] [address] [id number], [place] [address] Oct, [facility] [address] [id number], [place] [address]66[address]58[address] Oct, Uncontrolled type 2 diabetes mellitus without complication, without long-term current use of insulin E11.[address] [facility] [address] [id number], [place] [address] Sep, Uncontrolled type 2 diabetes mellitus without complication, without long-term current use of insulin E11.[address] [facility] [address] [id number], [place] [address] Aug, [facility] [address] [id number], [place] 226[address] Aug, [facility] [address] [facility] [id number] [place] [address] Aug, [facility] [address] [id number], [place] [address] Jul, [facility] [address] [id number], [place] [address] Jul, Uncontrolled type 2 diabetes mellitus without complication, without long-term current use of insulin E11.65 ; Encounter for immunization Z23 and Leg cramps, sleep related G47.[address] [facility] [address] [id number], [place] [address] May, [facility] [address] [id number], [place] [address] Apr, [facility] [address] [id number], [place] [address] Apr, Uncontrolled type 2 diabetes mellitus without complication, without long-term current use of insulin E11.65 and Hyperlipidemia LDL goal <70 E78.5 [facility] [address] [id number] [place] [address] Mar, [facility] [address] [id number], [place] [address]604868[address] Mar, [facility] [address] [id number], [place] [address] Mar, Obstructive chronic bronchitis with exacerbation J44.1 [place] [id number] [place] [address] February, [facility] [address] [id number][place] [address] February, [place] [id number] [place] [address] February, [facility] [address] [id number], [place] [address]679 February, Controlled type 2 diabetes mellitus without complication, without long-term current use of insulin E11.9 [facility] [address]005[address]100[place], [place] [address] February, [facility] [address] [place] [address] AVE [id number], [place] [address]45354317 Jan, Pneumonia of both lungs due to infectious organism, unspecified part of lung J18.9 ; Pure hypercholesterolemia E78.0 and Hx of fdc use 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 [facility] [address] [id number], [place] 284[address] Jan, [facility] [address] [id number] 363[address]- 9822 Jan, [facility] [address] [id number], [place] 499317372 Dec, Arthritis, lumbar spine M47.9 ; Essential hypertension with goal blood pressure less than 130\/80 I10 and Pneumonia of left lower lobe due to infectious organism J18.9 [facility] [address] [id number], [place] 687301113 Dec, [facility] [address] [id number], [place] [address] Nov, Arthritis, lumbar spine M47.9 [facility] [address]100[place], [place] [address] Nov, [facility] [address] [id number], [place] [address] Oct, [facility] [address] [id number], [place] 937480664 Oct, High triglycerides E78.1 [facility] [address] [id number], [place] 189678021 Oct, Diabetes type 2, controlled E11.9 ; Arthritis, lumbar spine M47.9 and Encounter for Zostavax administration Z23 [facility] [address] [id number], [place] [address] Sep, [facility] [address] [id number], [place] [address] Aug, [facility] [address]65100[place], [place] [address]1 Aug, [facility] [address] [id number], [place] 451342663 Jul, [facility] [address] [id number], [place] 327179278 Jul, Encounter for immunization Z23 [facility] [address]65100[place] [address]- [address]37 Jun, [facility] [address] [id number], [place] [address]47424[address] Jun, [facility] [address] [id number] [place] [address] Jun, Diabetes 250.00 ; Interstitial pulmonary disease 515 and DJD ( degenerative joint disease), lumbosacral 722.52 [facility] [address] [id number], [place] 620[address]2005 Apr, [facility] [place] [address] [facility] [id number] [address]4085[address] Apr, [facility] [address] [id number], [place] 809210634 Mar, DJD (degenerative joint disease), lumbosacral 722.52 and Lumbago 724.2 [facility] [address] [id number], [place] 658377724 February, Lumbago 724.2 and Abnormal x-ray of thoracic spine 793.7 [facility] [address] [address] [address] [id number][place] 775225390 February, Gout of knee 274.00 ; Lumbago with sciatica 724.3 and Interstitial pulmonary disease 515 [facility] [address] [address] [facility] [address] [id number], [place] [id number] February, [facility] [address]100[place], [place] [address]75[place]851- [address] Jan, [facility] [address] [id number] [address]93[place]- 2934 Jan, [facility] [address]65100[place], [place]19[place]- [address] Dec, [facility] [address]65100[place], [place] 0475[place]- [address]90 Dec, [facility] [address]65100[place], [place] [address]- 7964 Dec, [facility] [address] [id number], [place] [address]- [address] Dec, [facility] [address] [address]- [address]27 Nov, 2014 [facility] [place] [facility] [address] [id number] [place] [address]- [address]36 Nov, 2014 [facility] [place] [facility] [address] [id number] [place] [address]- 2546 Nov, 2014 [facility] [place] [facility] [address] [id number] [place] [address]- [address] Nov, 2014 [facility] [place] [facility] [address] [id number] [place] [address]- 2541 Nov, 2014 [facility] [place] [facility] [address] [id number] [place] [address]- 2144 Nov, 2014 [facility] [place] [facility] [address] [facility] [id number] [place] [address]- 4229 Nov, 2014 [facility] [place] [facility] [address] [facility] [id number] [place] [address]- 7388 Nov, 2014 [facility] [place] [facility] [address] [facility] [id number] [place] [address]- 1235 Nov, 2014 [facility] [place] [facility] [address] [facility] [id number] [place] [address]- 2102 Nov, 2014 [facility] [place] [facility] [address] [id number] [place] [address]- 1565 Nov, [facility] [place] [facility] [address] [facility] [id number], [place] [address]- 2547 Nov, 2014 [facility] [place] [facility] [address] [facility] [id number] [place] [address]- 2544 Nov, [facility] [place] [facility] [address] [id number], [place] [address]- 8634 Oct, [facility] [place] [facility] [address] [facility] [id number], [place] [address]- 5191 Oct, [facility] [place] [facility] [address] [facility] [id number], [place] [address]- 6369 Oct, [facility] [place] [facility] [address] [id number] [place] [address]- 6204 Oct, [facility] [place] [facility] [address] [id number] [place] [address]- 9691 Oct, [facility] [place] [facility] [address] [facility] [id number] [place] [address]- 6833 Oct, [facility] [place] [facility] [address] [id number] [place] [address]- 1013 Oct, [facility] [place] [facility] [address] [id number] [place] [address]- 4881 Oct, [facility] [place] [facility] [address] [id number] [place] [address]- 0516 Sep, [facility] [place] [facility] [address] [facility] [id number], [place] [address]- 3661 Sep, [facility] [place] [facility] [address] [id number] [place] [address]- 4104 Aug, [facility] [place] [facility] [address] [id number] [place] [address]- 3767 Aug, [facility] [place] [facility] [address] [facility] [id number] [place] [address]- 5962 Aug, [facility] [place] [facility] [address] [id number], [place] [address]- 2420 Aug, [facility] [place] [facility] [address] [id number], [place] [address]- 6236 Jul, [facility] [place] [facility] [address] [id number] [place] [address]- 1007 Jul, [facility] [place] [facility] [address] [facility] [id number], [place] [address]- 2416 Jun, [facility] [place] [facility] [address] [id number] [place] [address]- 0506 Jun, [facility] [place] [facility] [address] [id number] [place] [address]- 7680 16 Jun, 2013 [facility] [place] [facility] [address] [id number] [place] [address]- 4216 16 Jun, 2013 [facility] [place] [facility] [address] [id number] [place] [address] 2546 11 Jun, 2013 [facility] [place] [facility] [address] [id number] [place] [address] 2546 11 Jun, 2013 [facility] [place] [facility] [address] [id number] [place] [address] 2540 04 Jun, 2013 [facility] [place] [facility] [address] [id number] [place] [address]- 1225 04 Jun, 2013 [facility] [place] [facility] [address] [id number] [place] [address]- 9623 03 Jun, 2013 [facility] [place] [facility] [address] [id number] [place] [address]- 3070 Jun, 2013 [facility] [place] [facility] [address] [id number] [place] [address]- 0911 Jun, 2013 [facility] [place] [facility] [address] [id number] [place] [address]- 2276 May, [facility] [place] [facility] [address] [id number] [place] [address]- 4867 May, [facility] [place] [facility] [address] [id number] [place] [address]- 6263 Apr, [facility] [place] [facility] [address] [id number] [place] [address]- 9198 Apr, [facility] [place] [facility] [address] [id number] [place] [address]- 5030 Apr, [facility] [place] [facility] [address] [id number] [place] [address]- 8495 Apr, [facility] [place] [facility] [address] [id number] [place] [address]- 7169 Apr, [facility] [place] [facility] [address] [id number] [place] [address]- 1769 Apr, [facility] [place] [facility] [address] [id number] [place] [address]- 9801 Apr, [facility] [place] [facility] [address] [id number] [place] [address]- 3039 Apr, [facility] [place] [facility] [address] [id number] [place] [address]- 4705 Apr, [facility] [place] [facility] [address] [id number] [place] [address]- 3789 Apr, [facility] [place] [facility] [address] [id number] [place] [address]- 3964 Mar, [facility] [place] [facility] [address] [id number] [place] [address]- 7352 Mar, [facility] [place] [facility] [address] [id number] [place] [address]- 3066 Mar, [facility] [place] [facility] [address] [id number] [place] [address]- 0352 Mar, [facility] [place] [facility] [address] [id number] [place] [address]- 0217 Mar, [facility] [place] [facility] [address] [id number] [place] [address]- 3296 Mar, [facility] [place] [facility] [address] [id number] [place] [address]- 2733 Mar, [facility] [place] [facility] [address] [id number] [place] [address]- 3414 Mar, [facility] [place] [facility] [address] [id number] [place] [address]- 1184 Mar, [facility] [place] [facility] [address] [id number] [place] [address]- 3721 Mar, [facility] [place] [facility] [address] [id number] [place] [address]- 1202 Mar, [facility] [place] [facility] [address] [id number] [place] [address]- 3676 Mar, [facility] [place] [facility] [address] [id number] [place] [address]- 4051 Mar, [facility] [place] [facility] [address] [id number] [place] [address]- 0029 Mar, [facility] [place] [facility] [address] [id number] [place] [address]- 9561 Mar, [facility] [place] [facility] [address] [id number] [place] [address]- 3375 Mar, [facility] [place] [facility] [address] [id number] [place] [address]- 3087 February, [facility] [place] [facility] [address] [id number] [place] [address]- 1117 February, [facility] [place] [facility] [address] [id number] [place] [address]- 5859 Jan, [facility] [place] [facility] [address] [id number] [place] [address]- 8223 Jan, [facility] [place] [facility] [address] [id number] [place] [address]- 1236 Jan, [facility] [place] [facility] [address] [id number] [place] [address]- 9982 Jan, [facility] [place] [facility] [address] [id number] [place] [address]- 6090 Dec, [facility] [place] [facility] [address] [id number] [place] [address]- 9168 Dec, [facility] [place] [facility] [address] [id number] [place] [address]- 7548 Dec, [facility] [place] [facility] [address] [id number] [place] [address]- 7439 Dec, [facility] [place] [facility] [address] [id number] [place] [address]- 2238 Nov, [facility] [address] [id number] [place] [address]- 5726 Nov, [facility] [address] [id number] [place] [address]- 1612 Oct, [facility] [address] [id number] [place] [address]- 6555 Oct, [facility] [address] [id number] [place] [address]- 2429 Oct, [facility] [address] [id number] [place] [address]- 0121 Oct, [facility] [address] [id number] [place] [address]- 1529 Oct, [facility] [address] [id number] [place] [address]- 0690 Oct, [facility] [address] [id number] [place] [address]- 7422 Jun, [facility] [address] [id number] [place] [address]- 9246 Jun, [facility] [address] [id number] [place] [address] Jun, [facility] [address] [id number] [place] [id number] Jun, [facility] [address] [id number] [place] [address] Apr, [facility] [place] [facility] [address] [id number] [place] [address] Apr, [facility] [address] [id number] [place] [address] Apr, [facility] [address] [id number] [place] [address] Apr, [facility] [address] [id number] [place] [address] Mar, [facility] [address] [id number] [place] [address] Mar, [facility] [address] [id number] [place] [address] February, [facility] [address] [id number] [place] [address] Jan, [facility] [address] [id number] [place] [address] Jan, [facility] [address] [id number] [place] [address] Jan, [facility] [address] [id number] [place] [address] Dec, [facility] [place] [facility] [address] [id number] [place] [address] Dec, [facility] [address] [id number] [place] [address] Dec, [facility] [place] [facility] [address] [id number] [place] [address] Nov, [facility] [place] [facility] [address] [id number] [place] [address] Nov, [facility] [place] [facility] [address] [id number], [place] [address] Oct, [facility] [place] [facility] [address] [id number] [place] [address] Oct, [facility] [place] [facility] [address] [id number] [place] [address] Oct, [facility] [place] [facility] [address] [id number] [place] [address] Sep, [facility] [place] [facility] [address] [id number] [place] [address] Sep, [facility] [address] [id number] [place] [address] Sep, [facility] [place] [facility] [address] [id number] [place] [address] Sep, [facility] [address] [id number] [place] [address] Sep, [facility] [address] [id number] [place] [address] Sep, [facility] [address] [id number] [place] [address] Sep, [facility] [address] [id number] [place] [address] Sep, [facility] [address] [facility] [id number] [place] [address] Aug, [facility] [address] [id number] [place] [address] Aug, [facility] [address] [facility] [id number] [place] [address] Jul, [facility] [address] [facility] [id number], [place] [address] Jul, [facility] [place] [facility] [address] [facility] [id number] [place] [address] Jul, [facility] [address] [facility] [id number], [place] [address] Jul, [facility] [place] [facility] [address] [facility] [id number] [place] [address] Jun, [facility] [place] [facility] [address] [facility] [id number], [place] [address] Jun, [facility] [address] [id number] [id number] Jun, [facility] [address] [id number] [place] [id number] Jun, 2012 [facility] [address] [id number] [place] [address] 11 Jun, 2012 [facility] [place] [facility] [address] [id number] [place] [address] 10 Jun, 2012 [facility] [address] [id number] [place] [address] 08 Jun, 2012 [facility] [place] [facility] [address] [id number] [place] [address]- [address] 05 Jun, 2012 [facility] [address] [id number] [place] [address] May, [facility] [address] [id number] [place] [address] May, [facility] [address] [id number] [place] [address] May, [facility] [address] [id number] [place] [address] May, [facility] [place] [facility] [address] [id number] [place] [address] May, [facility] [address] [id number] [place] [address] May, [facility] [place] [facility] [address] [id number] [id number] May, [facility] [place] [facility] [address] [id number] [place] [address] Apr, [facility] [place] [facility] [address] [id number] [place] [id number] Apr, [facility] [place] [facility] [address] [id number] [place] [address] Apr, [facility] [place] [facility] [address] [id number] [place] [address] Apr, [facility] [place] [facility] [address] [id number] [place] [address] Apr, [facility] [place] [facility] [address] [id number] [place] [address] Apr, [facility] [place] [facility] [address] [id number] [place] [address] Apr, [facility] [place] [facility] [address] [id number] [place] [address] Apr, [facility] [address] [id number] [place] [address] Apr, [facility] [place] [facility] [address] [id number] [place] [address] Apr, [facility] [address] [id number] [place] [address] Mar, [facility] [address] [id number] [place] [address] February, [facility] [address] [id number] [place] [address] Jan, [facility] [address] [id number] [place] [address] Dec, [facility] [place] [facility] [address] [id number] [place] [address] Dec, [facility] [place] [facility] [address] [id number] [id number] Nov, [facility] [place] [facility] [address] [id number] [place] [address] Nov, [facility] [place] [facility] [address] [id number] [place] [address] Nov, [facility] [place] [facility] [address] [id number] [place] [address] Nov, [facility] [place] [facility] [address] [id number], [place] [address] Nov, [facility] [address] [facility] [id number], [place] [address] Nov, [facility] [id number], [place] [address] Nov, [facility] [address] [facility] [id number] [id number] Oct, [facility] [address] [id number], [place] [address] Oct, [facility] [id number], [place] [address] Oct, [facility] [id number], [place] [address] Oct, [facility] [id number], [place] [address] Oct, [facility] [id number], [place] [address] Oct, [facility] [id number], [place] [address] Sep, [facility] [id number], [place] [address] Aug, [facility] [id number], [place] [address] Jul, [facility] [id number], [place] [address] Jul, [facility] [id number], [place] [address] Jul, [facility] [id number], [place] [address] Jul, [facility] [id number], [place] [address] Jul, IMMUNIZATIONS No Known Immunizations SOCIAL HISTORY Never Assessed REASON FOR VISIT Critical Lab Results PLAN OF CARE VITAL SIGNS MEDICATIONS Medication Instructions Dosage Frequency Start Date End Date Duration Status Vancomycin HCl 250 MG Orally every 6 hrs 1 capsules 6h May,Jun 10 days Active RESULTS No Results PROCEDURES No [...]
--- OUTSIDE RECORDS SUMMARY | 2018-12-17 08:16 | XMS REPORT ---
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 Name Role Phone MARIBEL GARY Unavailable PROBLEMS Type Condition ICD9-CM Code PLB17-NE Code Onset Dates Condition Status SNOMED Code Problem Controlled type 2 diabetes mellitus without complication, without long -term current use of insulin E11.9 Active 820664969 Problem Hyperlipidemia LDL goal <70 E78.5 Active 11142161 Problem Uncontrolled type 2 diabetes mellitus without complication, without long-term current use of insulin E11.65 Active 218721741 Problem Hyperlipidemia LDL goal <70 E78.5 Active 03768507 Problem Clostridium difficile diarrhea A04.7 Active 2048560839748 Problem COPD exacerbation J44.1 Active 079485004 Problem Leg cramps, sleep related G47.62 Active 60627774 Problem Hypomagnesemia E83.42 Active 947080603 Problem Recurrent pneumonia J18.9 Active 451213291 Problem Arthritis, lumbar spine M47.9 Active 138198407 Problem High triglycerides E78.1 Active 833932325 Problem Essential hypertension with goal blood pressure less than 130\/80 I10 Active 17640261 Problem Diabetes type 2, controlled E11.9 Active 08982156 Problem Hx of rn long term care use 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 Active 836116707 Problem Encounter for Zostavax administration Z23 Active 166939000 Problem Pure hypercholesterolemia E78.0 Active 669037126 ALLERGIES No Information ENCOUNTERS Encounter Location Date Diagnosis [facility] [id number][place] [id number] Jan, [facility] [id number][place] [id number] Nov, Hypomagnesemia E83.42 and Uncontrolled type 2 diabetes mellitus without complication, without long-term current use of insulin E11.65 [facility] [address] [id number] [place] [address] Nov, Uncontrolled type 2 diabetes mellitus without complication, without long-term current use of insulin E11.65 ; Hypomagnesemia E83.42 and Hyperlipidemia LDL goal <[address] [facility] [address] [id number][place] [address] Oct, [facility] [address] [facility] [id number][place] [address] Sep, [facility] [address] [id number][place] [address] Aug, [facility] [address] [id number], [place] [address]608[address] Aug, Hypomagnesemia E83.[address] [facility] [address] [id number][place] [address]1286 Aug, Uncontrolled type 2 diabetes mellitus without complication, without long-term current use of insulin E11.65 and Hypomagnesemia E83.[address] [facility] [address] [id number][place] [address] Aug, [facility] [address] [id number][place] [address] Jul, COPD exacerbation J44.[address] [facility] [address] [id number][place] [address] Jul, Clostridium difficile diarrhea A04.[address] [facility] [address] [id number], [place] [address] Jun, [facility] [address] [id number], [place] [address] May, Clostridium difficile diarrhea A04.[address] [facility] [address] [id number], [place] [address] May, Clostridium difficile diarrhea A04.[address] [facility] [address] [id number], [place] [address] May, Hypomagnesemia E83.[address] [facility] [address] [id number][place] [address] May, Uncontrolled type 2 diabetes mellitus without complication, without long-term current use of insulin E11.65 ; Clostridium difficile diarrhea A04.7 and Hypomagnesemia E83.[address] [facility] [address] [id number], [place] 240[address] May, [facility] [address] [id number], [place] [address] May, [facility] [address] [id number][place] [address] Apr, Clostridium difficile diarrhea A04.7 and Hypomagnesemia E83.[address] [facility] [address] [id number][place] [address] Apr, [facility] [address] [id number], [place] [address]69[address]37[address] Apr, High triglycerides E78.[address] [facility] [address] [id number], [place] [address]34649[address] February, Recurrent pneumonia J18.[address] [facility] [address] [id number][place] [address]286[address] February, Hypomagnesemia E83.42 [facility] [address] [facility] [id number], [place] February, [facility] [address] [id number][place] [address] February, COPD exacerbation J44.[address] [facility] [address] [id number], [place] [address] February, [facility] [address] [id number][place] [address]407[address] Jan, Uncontrolled type 2 diabetes mellitus without complication, without long-term current use of insulin E11.65 and Arthritis, lumbar spine M47.[address] [facility] [address] [id number] [place] [address] Dec, [facility] [address] [address] [id number] [place] [address] Dec, [facility] [address] [id number] [place] [address] Oct, [facility] [address] [id number], [place] [id number] Oct, Uncontrolled type 2 diabetes mellitus without complication, without long-term current use of insulin E11.[address] [facility] [address] [id number] [place] [address] Sep, Uncontrolled type 2 diabetes mellitus without complication, without long-term current use of insulin E11.[address] [facility] [address] [id number], [place] [address] Aug, [facility] [address] [id number], [place] [address] Aug, [facility] [address] [facility] [id number] [place] [address] Aug, [facility] [address] [id number], [place] [address]358[address] Jul, [facility] [address] [id number], [place] [address] Jul, Encounter for immunization Z23 ; Uncontrolled type 2 diabetes mellitus without complication, without long-term current use of insulin E11.65 and Leg cramps, sleep related G47.[address] [facility] [address] [id number] [place] [address] May, [facility] [address] [id number] [place] [address] Apr, [facility] [address] [id number] [place] [address] Apr, Uncontrolled type 2 diabetes mellitus without complication, without long-term current use of insulin E11.65 and Hyperlipidemia LDL goal <70 E78.[address] [facility] [address] [id number], [place] [address]36684793 Mar, [facility] [address] [id number], [place] [id number] Mar, [facility] [address] [address] [id number], [place] [address]846 Mar, Obstructive chronic bronchitis with exacerbation J44.1 [facility] [address]00565100[place], [place] [address] February, [facility] [id number], [place] [id number] February, [facility] [address]00565100[place], [place] [address] February, [facility] [id number], [place] [address]94[address] February, Controlled type 2 diabetes mellitus without complication, without long-term current use of insulin E11.9 [facility] [place] [address]00565100[place], [place] [address] February, [facility] [address] [place] [address] AVE [id number], [place] [id number] Jan, Pneumonia of both lungs due to infectious organism, unspecified part of lung J18.9 ; Pure hypercholesterolemia E78.0 and Hx of rn long term care use 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 [facility] [address] [id number], [place] [address]16685 Jan, [facility] [address] [facility] [id number], [place] [address] Jan, [facility] [address] [id number], [place] [address] Dec, Arthritis, lumbar spine M47.9 ; Essential hypertension with goal blood pressure less than 130\/80 I10 and Pneumonia of left lower lobe due to infectious organism J18.[address] [id number], [place] [id number] Dec, [facility] [address] [id number], [place] 829087826 Nov, Arthritis, lumbar spine M47.9 [facility] [address]100[place], [place] [address] Nov, [facility] [address]65100[place], [place] [address] Oct, [facility] [address] [id number], [place] 138581667 Oct, High triglycerides E78.1 [facility] [address] [address] [id number], [place] 340550644 Oct, Diabetes type 2, controlled E11.9 ; Arthritis, lumbar spine M47.9 and Encounter for Zostavax administration Z23 [facility] [place] [address] [id number] [address]- [address] Sep, [facility] [place] [address]65100[place] Aug, [facility] [id number] [place] [address]- [address] Aug, [facility] [address] [id number], [place] [id number] Jul, [facility] [address] [id number], [place] [id number] Jul, Encounter for immunization Z23 [facility] [place] [address] [facility] [id number], [place] [address]- [address] Jun, [facility] [address] [id number], [place] [id number] Jun, [facility] [address] [id number], [place] [id number] 08 Jun, 2015 Diabetes 250.00 ; Interstitial pulmonary disease 515 and DJD ( degenerative joint disease), lumbosacral 722.[address] [facility] [address] [id number], [place] [id number] Apr, [facility] [address] [facility] [id number][place] 005[address] Apr, [facility] [address] [id number], [place] 616189907 Mar, DJD (degenerative joint disease), lumbosacral 722.52 and Lumbago 724.[address] [facility] [address] [id number], [place] 809657361 February, Lumbago 724.2 and Abnormal x-ray of thoracic spine 793.7 [facility] [address] [address] [id number], [place] 011032103 February, Gout of knee 274.00 ; Lumbago with sciatica 724.3 and Interstitial pulmonary disease 515 [facility] [address] [id number], [place] 744202155 February, [facility] [address]65100[place], [place] [address]- [address] Jan, [facility] [id number] [place] [address]- 1276 Jan, [facility] [address]65100[place], [place] [address]- 2523 Dec, [facility] [address] [id number], [place] [address] 6446 Dec, [facility] [address]65100[place], [place] [address]- [address] Dec, [facility] [id number] [place] [address]- 9496 Dec, [facility] [address]100[place], [place] [address]- 3606 Nov, [facility] [id number] [place] [address]- 6487 Nov, 2014 [facility] [place] [facility] [address] [id number] [place] [address]- 4[address] Nov, 2014 [facility] [place] [facility] [address] [facility] [id number] [place] [address]- 3536 Nov, 2014 [facility] [place] [facility] [address] [facility] [id number] [place] [address]- 3192 Nov, 2014 [facility] [place] [facility] [address] [facility] [id number] [place] [address]- 7440 Nov, 2014 [facility] [place] [facility] [address] [facility] [id number] [place] [address]- 8688 Nov, 2014 [facility] [place] [facility] [address] [facility] [id number] [place] [address]- 0600 Nov, 2014 [facility] [place] [facility] [address] [id number] [place] [address]- 6024 Nov, 2014 [facility] [place] [facility] [address] [facility] [id number] [place] [address]- 4358 Nov, [facility] [place] [facility] [address] [facility] [id number] [place] [address]- 2214 Nov, 2014 [facility] [place] [facility] [address] [facility] [id number] [place] [address]- 5648 Nov, [facility] [place] [facility] [address] [facility] [id number] [place] [address]- 3197 Nov, [facility] [place] [facility] [address] [facility] [id number], [place] [address]- 9743 Oct, [facility] [place] [facility] [address] [facility] [id number] [place] [address]- 8112 Oct, [facility] [place] [facility] [address] [facility] [id number] [place] [address]- 3080 Oct, [facility] [place] [facility] [address] [facility] [id number] [place] [address]- 1356 Oct, [facility] [place] [facility] [address] [id number] [place] [address]- 0025 Oct, [facility] [place] [facility] [address] [id number] [place] [address]- 1900 Oct, [facility] [place] [facility] [address] [id number] [place] [address]- 5110 Oct, [facility] [place] [facility] [address] [id number] [place] [address]- 2020 Oct, [facility] [place] [facility] [address] [id number] [place] [address]- 5533 Sep, [facility] [place] [facility] [address] [id number] [place] [address]- 8204 Sep, [facility] [place] [facility] [address] [id number] [place] [address]- 6427 Aug, [facility] [place] [facility] [address] [id number] [place] [address]- 0262 Aug, [facility] [place] [facility] [address] [id number] [place] [address]- 7395 Aug, [facility] [place] [facility] [address] [id number] [place] [address]- 8692 Aug, [facility] [place] [facility] [address] [id number] [place] [address]- 0983 Jul, [facility] [place] [facility] [address] [id number] [place] [address]- 2404 Jul, [facility] [place] [facility] [address] [id number] [place] [address]- 8820 29 Jun, 2014 [facility] [place] [facility] [address] [id number] [place] [address]- 5821 29 Jun, 2014 [facility] [place] [facility] [address] [id number] [place] [address]- [address] 16 Jun, 2014 [facility] [place] [facility] [address] [id number] [place] [address]- 5765 16 Jun, 2013 [facility] [place] [facility] [address] [id number] [place] [address]- 4047 11 Jun, 2013 [facility] [place] [facility] [address] [id number] [place] [address]- 6600 11 Jun, 2013 [facility] [place] [facility] [address] [id number] [place] [address]- 4221 04 Jun, 2013 [facility] [place] [facility] [address] [id number] [place] [address]- 8474 04 Jun, 2013 [facility] [place] [facility] [address] [id number] [place] [address]- 5576 03 Jun, 2013 [facility] [place] [facility] [address] [id number] [place] [address]- 0415 Jun, [facility] [place] [facility] [address] [id number] [place] [address]- 2954 Jun, 2013 [facility] [place] [facility] [address] [id number] [place] [address]- 0493 May, [facility] [place] [facility] [address] [id number] [place] [address]- 0654 May, [facility] [place] [facility] [address] [id number] [place] [address]- 9518 Apr, [facility] [place] [facility] [address] [id number] [place] [address]- 2274 Apr, [facility] [place] [facility] [address] [id number] [place] [address]- 0103 Apr, [facility] [place] [facility] [address] [id number] [place] [address]- 1721 Apr, [facility] [place] [facility] [address] [id number] [place] [address]- 3464 Apr, [facility] [place] [facility] [address] [id number] [place] [address]- 1942 Apr, [facility] [place] [facility] [address] [id number] [place] [address]- 1988 Apr, [facility] [place] [facility] [address] [id number] [place] [address]- 8908 Apr, [facility] [place] [facility] [address] [id number] [place] [address]- 8831 Apr, [facility] [place] [facility] [address] [id number] [place] [address]- 7276 Apr, [facility] [place] [facility] [address] [id number] [place] [address]- 4848 Mar, [facility] [place] [facility] [address] [id number] [place] [address]- 7011 Mar, [facility] [place] [facility] [address] [id number] [place] [address]- 9503 Mar, [facility] [place] [facility] [address] [id number] [place] [address]- 5405 Mar, [facility] [place] [facility] [address] [id number] [place] [address]- 3274 Mar, [facility] [place] [facility] [address] [id number] [place] [address]- 8088 Mar, [facility] [place] [facility] [address] [id number] [place] [address]- 4811 Mar, [facility] [place] [facility] [address] [id number] [place] [address]- 9695 Mar, [facility] [place] [facility] [address] [id number] [place] [address]- 0561 Mar, [facility] [place] [facility] [address] [id number] [place] [address]- 6209 Mar, [facility] [place] [facility] [address] [id number] [place] [address]- 4035 Mar, [facility] [place] [facility] [address] [id number] [place] [address]- 7705 Mar, [facility] [place] [facility] [address] [id number] [place] [address]- 0753 Mar, [facility] [place] [facility] [address] [id number] [place] [address]- 3077 Mar, [facility] [place] [facility] [address] [id number] [place] [address]- 5736 Mar, [facility] [place] [facility] [address] [id number] [place] [address]- 2242 Mar, [facility] [place] [facility] [address] [id number] [place] [address]- 2459 February, [facility] [place] [facility] [address] [id number] [place] [address]- 1909 February, [facility] [place] [facility] [address] [id number] [place] [address]- 5337 Jan, [facility] [place] [facility] [address] [id number] [place] [address]- 3506 Jan, [facility] [place] [facility] [address] [id number] [place] [address]- 9112 Jan, [facility] [place] [facility] [address] [id number] [place] [address]- 9563 Jan, [facility] [place] [facility] [address] [id number] [place] [address]- 7299 Dec, [facility] [place] [facility] [address] [id number], [place] [address]- 3373 Dec, [facility] [place] [facility] [address] [id number] [place] [address]- 7794 Dec, [facility] [place] [facility] [address] [id number] [place] [address]- 0579 Dec, [facility] [place] [facility] [address] [id number] [place] [address]- 8882 Nov, [facility] [place] [facility] [address] [id number], [place] [address]- 0746 Nov, [facility] [address] [id number] [place] [address]- 5984 Oct, [facility] [address] [id number] [place] [address]- 4097 Oct, [facility] [address] [id number] [place] [address]- 1854 Oct, [facility] [address] [id number] [place] [address]- 4632 Oct, [facility] [address] [id number] [place] [address]- 3812 Oct, [facility] [address] [id number] [place] [address]- 0232 Oct, [facility] [address] [id number], [place] [address]- 8697 Jun, [facility] [address] [id number] [place] [address]- 4344 Jun, [facility] [address] [id number], [place] [address]- 9699 Jun, [facility] [address] [id number] [place] [address] Jun, [facility] [address] [id number], [place] [address]- 2909 Apr, [facility] [place] [facility] [address] [id number], [place] [address]- 6234 Apr, [facility] [address] [id number], [place] [address]- 7567 Apr, [facility] [place] [facility] [address] [id number] [place] [address]- 2626 Apr, [facility] [place] [facility] [address] [id number], [place] [address]- 8552 Mar, [facility] [place] [facility] [address] [id number] [place] [address]- 5888 Mar, [facility] [address] [id number] [place] [address]- 4425 February, [facility] [address] [id number] [place] [address]- 2576 Jan, [facility] [address] [id number] [place] [address] Jan, [facility] [address] [id number] [place] [address] Jan, [facility] [address] [id number] [place] [address] Dec, [facility] [address] [id number] [place] [address] Dec, [facility] [address] [id number] [place] [address] Dec, [facility] [address] [id number] [place] [address] Nov, [facility] [address] [id number] [place] [address] Nov, [facility] [address] [id number] [place] [address] Oct, [facility] [address] [id number] [place] [address] Oct, [facility] [address] [id number] [place] [address] Oct, [facility] [address] [id number] [place] [address] Sep, [facility] [address] [id number] [place] [address] Sep, [facility] [address] [id number] [place] [address] Sep, [facility] [place] [facility] [address] [id number] [place] [address] Sep, [facility] [place] [facility] [address] [id number] [place] [address] Sep, [facility] [place] [facility] [address] [facility] [id number] [place] [address] Sep, [facility] [place] [facility] [address] [id number] [place] [address] Sep, [facility] [place] [facility] [address] [id number] [place] [address] Sep, [facility] [place] [facility] [address] [id number] [place] [address] Aug, [facility] [place] [facility] [address] [facility] [id number] [place] [address] Aug, [facility] [place] [facility] [address] [facility] [id number], [place] [address] Jul, [facility] [place] [facility] [address] [id number] [place] [address] Jul, [facility] [place] [facility] [address] [facility] [id number], [place] [address] Jul, [facility] [place] [facility] [address] [facility] [id number], [place] [address] Jul, [facility] [place] [facility] [address] [facility] [id number], [place] [address] Jun, [facility] [place] [facility] [address] [id number], [place] [address] Jun, [facility] [address] [id number] [id number] Jun, [facility] [address] [id number] [place] [id number] Jun, [facility] [place] [facility] [address] [facility] [id number], [place] [address] 11 Jun, 2012 [facility] [place] [facility] [address] [id number] [place] [address] 10 Jun, 2012 [facility] [place] [facility] [address] [id number] [place] [address] 08 Jun, 2012 [facility] [place] [facility] [address] [id number] [place] [address] 05 Jun, 2012 [facility] [place] [facility] [address] [id number] [place] [address] May, [facility] [place] [facility] [address] [id number] [place] [address] May, [facility] [place] [facility] [address] [id number] [place] [address] May, [facility] [place] [facility] [address] [id number] [place] [address] May, [facility] [place] [facility] [address] [id number] [place] [address] May, [facility] [place] [facility] [address] [id number] [place] [address] May, [facility] [place] [facility] [address] [facility] [id number] [id number] May, [facility] [place] [facility] [address] [id number] [place] [address] Apr, [facility] [place] [facility] [address] [facility] [id number] [id number] Apr, [facility] [place] [facility] [address] [id number] [place] [address] Apr, [facility] [place] [facility] [address] [id number] [place] [address] Apr, [facility] [place] [facility] [address] [id number] [place] [address] Apr, [facility] [place] [facility] [address] [id number], [place] [address] Apr, [facility] [place] [facility] [address] [id number] [place] [address] Apr, [facility] [place] [facility] [address] [id number] [place] [address] Apr, [facility] [place] [facility] [address] [id number] [place] [address] Apr, [facility] [place] [facility] [address] [id number] [place] [address] Apr, [facility] [place] [facility] [address] [id number] [place] [address] Mar, [facility] [place] [facility] [address] [id number] [place] [address] February, [facility] [place] [facility] [address] [id number] [place] [address] Jan, [facility] [place] [facility] [address] [id number] [place] [address] Dec, [facility] [place] [facility] [address] [id number] [place] [address] Dec, [facility] [place] [facility] [address] [facility] [id number] [place] [id number] Nov, [facility] [place] [facility] [address] [id number] [place] [address] Nov, [facility] [place] [facility] [address] [id number] [place] [address] Nov, [facility] [place] [facility] [address] [id number] [place] [address] Nov, [facility] [place] [facility] [address] [id number] [place] [address] Nov, [facility] [place] [facility] [address] [facility] [id number] [place] [address] Nov, [facility] [place] [id number], [place] [address] Nov, [facility] [id number] [id number] Oct, [facility] [place] [id number] [address] Oct, [facility] [place] [id number], [place] [address] Oct, [facility] [place] [address] [facility] [id number], [place] [address] Oct, [facility] [place] [id number], [place] [address] Oct, [facility] [place] [id number], [place] [address] Oct, [facility] [place] [id number], [place] [address] Sep, [facility] [place] [id number] [address] Aug, [facility] [place] [id number] [id number] Jul, [facility] [place] [id number] [address] Jul, [facility] [place] [id number], [place] [address] Jul, [facility] [place] [address] [id number] [address] Jul, [facility] [place] [id number] [address] Jul, IMMUNIZATIONS No Known Immunizations SOCIAL HISTORY [...]
--- OUTSIDE RECORDS SUMMARY | 2018-12-17 08:17 | XMS REPORT ---
Author Author PHYLLISJACKIE MARIBEL [facility] Address [address] [place] [address] Care Team Providers Care Visual Arts Teacher Name Role Phone MARIBEL GARY Unavailable PROBLEMS Type Condition ICD9-CM Code AEQ04-IV Code Onset Dates Condition Status SNOMED Code Problem Controlled type 2 diabetes mellitus without complication, without long -term current use of insulin E11.9 Active 471379408 Problem Hyperlipidemia LDL goal <70 E78.5 Active 28805488 Problem Uncontrolled type 2 diabetes mellitus without complication, without long-term current use of insulin E11.65 Active 886826107 Problem Hyperlipidemia LDL goal <70 E78.5 Active 14037907 Problem Clostridium difficile diarrhea A04.7 Active 2351332956063 Problem COPD exacerbation J44.1 Active 367887942 Problem Leg cramps, sleep related G47.62 Active 36823175 Problem Hypomagnesemia E83.42 Active 715121640 Problem Recurrent pneumonia J18.9 Active 936466460 Problem Arthritis, lumbar spine M47.9 Active 403629700 Problem High triglycerides E78.1 Active 784796645 Problem Essential hypertension with goal blood pressure less than 130\/80 I10 Active 98799555 Problem Diabetes type 2, controlled E11.9 Active 30415686 Problem 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 Active 517246301 Problem Encounter for Zostavax administration Z23 Active 997651417 Problem Pure hypercholesterolemia E78.0 Active 076073921 ALLERGIES No Information ENCOUNTERS Encounter Location Date Diagnosis [facility] [address] [id number][place] [id number] February, [facility] [address] [id number][place] [id number] Jan, Uncontrolled type 2 diabetes mellitus without complication, without long-term current use of insulin E11.65 [facility] [address] [id number][place] [id number] Nov, Hypomagnesemia E83.42 and Uncontrolled type 2 diabetes mellitus without complication, without long-term current use of insulin E11.[address] [facility] [address] [id number][place] [address]26[address] Nov, Uncontrolled type 2 diabetes mellitus without complication, without long-term current use of insulin E11.65 ; Hypomagnesemia E83.42 and Hyperlipidemia LDL goal <[address] [facility] [address] [id number][place] [address] Oct, [facility] [address] [facility] [id number], [place] [address] Sep, [facility] [address] [id number][place] [address] Aug, [facility] [address] [address] [id number], [place] [address] Aug, Hypomagnesemia E83.[address] [facility] [address] [id number][place] [address] Aug, Uncontrolled type 2 diabetes mellitus without complication, without long-term current use of insulin E11.65 and Hypomagnesemia E83.[address] [facility] [address] [id number], [place] [address] Aug, [facility] [address] [id number][place] [address]217[address] Jul, COPD exacerbation J44.[address] [facility] [address] [id number], [place] [address]59678[address] Jul, Clostridium difficile diarrhea A04.[address] [facility] [address] [id number], [place] 487335878 Jun, [facility] [address] [address] [id number], [place] [address] May, Clostridium difficile diarrhea A04.[address] [facility] [address] [id number] [place] [address] May, Clostridium difficile diarrhea A04.[address] [facility] [address] [id number] [place] [address] May, Hypomagnesemia E83.[address] [facility] [address] [id number][place] [address] May, Uncontrolled type 2 diabetes mellitus without complication, without long-term current use of insulin E11.65 ; Clostridium difficile diarrhea A04.7 and Hypomagnesemia E83.[address] [facility] [address] [id number], [place] [address] May, [facility] [address] [address] [id number], [place] [address] May, [facility] [address] [address] [id number], [place] [address] Apr, Clostridium difficile diarrhea A04.7 and Hypomagnesemia E83.[address] [facility] [address] [id number], [place] [address] Apr, [facility] [address] [address] [id number], [place] [address] Apr, High triglycerides E78.[address] [facility] [address] [id number][place] [address] February, Recurrent pneumonia J18.[address] [facility] [address] [id number], [place] [id number] February, Hypomagnesemia E83.42 [facility] [address] [facility] [id number], [place] [address]46[address] February, [facility] [address] [address] [id number], [place] [address]566562[address] February, COPD exacerbation J44.[address] [facility] [address] [id number], [place] [address] February, [facility] [address] [address] [id number], [place] [address]169[address] Jan, Uncontrolled type 2 diabetes mellitus without complication, without long-term current use of insulin E11.65 and Arthritis, lumbar spine M47.[address] [facility] [address] [id number], [place] [address] Dec, [facility] [address] [address] [id number], [place] 031944150 Dec, [facility] [address] [address] [id number], [place] [address] Oct, [facility] [address] [address] [id number], [place] 931595736 Oct, Uncontrolled type 2 diabetes mellitus without complication, without long-term current use of insulin E11.[address] [facility] [address] [id number], [place] 453081011 Sep, Uncontrolled type 2 diabetes mellitus without complication, without long-term current use of insulin E11.[address] [facility] [address] [id number], [place] 417[address]54 Aug, [facility] [address] [address] [id number], [place] 315452893 Aug, [facility] [address] [facility] [id number] [place] [address] Aug, [facility] [address] [address] [id number], [place] 291769677 Jul, [facility] [address] [address] [id number], [place] 773842613 Jul, Encounter for immunization Z23 ; Uncontrolled type 2 diabetes mellitus without complication, without long-term current use of insulin E11.65 and Leg cramps, sleep related G47.[address] [facility] [address] [id number], [place] 2642787[address] May, [facility] [address] [address] [id number], [place] 650943[address] Apr, [facility] [address] [address] [id number], [place] [address]196515[address] Apr, Uncontrolled type 2 diabetes mellitus without complication, without long-term current use of insulin E11.65 and Hyperlipidemia LDL goal <70 E78.5 [facility] [address] [id number] [place] [address] Mar, [facility] [address] [id number], [place] [address]883785[address] Mar, [facility] [address] [id number], [place] [address] Mar, Obstructive chronic bronchitis with exacerbation J44.1 [place] [id number] [place] [address] February, [facility] [address] [id number], [place] [address]95[address] February, [place] [id number] [place] [address]84671- [address] February, [facility] [address] [id number], [place] [address] February, Controlled type 2 diabetes mellitus without complication, without long-term current use of insulin E11.9 [facility] [address]00565100[place], [place] [address] February, [facility] [address] [place] [address] AVE [id number], [place] [address]10026736 Jan, Pneumonia of both lungs due to infectious organism, unspecified part of lung J18.9 ; Pure hypercholesterolemia E78.0 and Hx of penitentiary use 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 [facility] [address] [id number], [place] 106070243 Jan, [facility] [address] [id number], [place] 82908016[place] [address] Jan, [facility] [address] [id number], [place] 891472660 Dec, Arthritis, lumbar spine M47.9 ; Essential hypertension with goal blood pressure less than 130\/80 I10 and Pneumonia of left lower lobe due to infectious organism J18.9 [facility] [address] [id number], [place] 119406324 Dec, [facility] [address] [id number], [place] 145998624 Nov, Arthritis, lumbar spine M47.9 [facility] [address]00565100[place], [place] [address] Nov, [facility] [address] [id number], [place] [address] Oct, [facility] [address] [id number], [place] 050606345 Oct, High triglycerides E78.1 [facility] [address] [id number], [place] 890446336 Oct, Diabetes type 2, controlled E11.9 ; Arthritis, lumbar spine M47.9 and Encounter for Zostavax administration Z23 [facility] [address] [id number], [place] [address] Sep, [facility] [address] [id number], [place] [address]- [address] Aug, [facility] [address]00565100[place], [place] [address] Aug, [facility] [address] [id number], [place] 167822481 Jul, [facility] [address] [id number], [place] 184414342 Jul, Encounter for immunization Z23 [facility] [address]00565100[place], [place]205[place]- 37[address] Jun, [facility] [address] [id number], [place] 216147811 Jun, [facility] [address] [id number] [place] [address] Jun, Diabetes 250.00 ; Interstitial pulmonary disease 515 and DJD ( degenerative joint disease), lumbosacral 722.52 [facility] [address] [id number], [place] 075398285 Apr, [facility] [address] [facility] [id number], [place] 707837463 Apr, [facility] [address] [id number], [place] 100822700 Mar, DJD (degenerative joint disease), lumbosacral 722.52 and Lumbago 724.2 [facility] [address] [id number], [place] 620143271 February, Lumbago 724.2 and Abnormal x-ray of thoracic spine 793.7 [facility] [address] [facility] [address] [id number], [place] 106401688 February, Gout of knee 274.00 ; Lumbago with sciatica 724.3 and Interstitial pulmonary disease 515 [facility] [address] [facility] [address] [id number], [place] 312856595 February, [facility] [address]65100[place], [place] 95387448- 5[address] Jan, [facility] [address] [id number] 420[place]- 0705 Jan, [facility] [address]00565100[place], [place] 4475[place]- 2367 Dec, [facility] [address]00565100[place], [place] 9831[place]- 1476 Dec, [facility] [address]65100[place], [place] [address]- 8620 Dec, [facility] [address] [id number], [place] [address]- 7923 Dec, [facility] [address] [address]- [address]16 Nov, 2014 [facility] [place] [facility] [address] [id number] [place] [address]- [address]846 Nov, 2014 [facility] [place] [facility] [address] [id number] [place] [address]- 2546 Nov, 2014 [facility] [place] [facility] [address] [id number] [place] [address]- 5084 Nov, 2014 [facility] [place] [facility] [address] [id number] [place] [address]- 2545 Nov, 2014 [facility] [place] [facility] [address] [id number] [place] [address]- 4915 Nov, 2014 [facility] [place] [facility] [address] [facility] [id number] [place] [address]- 1218 Nov, 2014 [facility] [place] [facility] [address] [facility] [id number] [place] [address]- 8751 Nov, 2014 [facility] [place] [facility] [address] [facility] [id number] [place] [address]- 1291 Nov, 2014 [facility] [place] [facility] [address] [facility] [id number] [place] [address]- 4106 Nov, 2014 [facility] [place] [facility] [address] [id number] [address]- 5566 Nov, [facility] [place] [facility] [address] [facility] [id number], [place] [address]- 2544 Nov, 2014 [facility] [place] [facility] [address] [facility] [id number] [place] [address]- 2540 Nov, [facility] [place] [facility] [address] [id number], [place] [address]- 9477 Oct, [facility] [place] [facility] [address] [facility] [id number], [place] [address]- 8003 Oct, [facility] [place] [facility] [address] [facility] [id number], [place] [address]- 6994 Oct, [facility] [place] [facility] [address] [id number] [place] [address]- 5909 Oct, [facility] [place] [facility] [address] [id number] [place] [address]- 7414 Oct, [facility] [place] [facility] [address] [facility] [id number] [place] [address]- 3015 Oct, [facility] [place] [facility] [address] [id number] [place] [address]- 5065 Oct, [facility] [place] [facility] [address] [id number] [place] [address]- 3689 Oct, [facility] [place] [facility] [address] [id number] [place] [address]- 6386 Sep, [facility] [place] [facility] [address] [facility] [id number], [place] [address]- 7719 Sep, [facility] [place] [facility] [address] [id number] [place] [address]- 6149 Aug, [facility] [place] [facility] [address] [id number] [place] [address]- 3977 Aug, [facility] [place] [facility] [address] [facility] [id number] [place] [address]- 2543 Aug, [facility] [place] [facility] [address] [id number], [place] [address]- 6659 Aug, [facility] [place] [facility] [address] [id number], [place] [address]- 7609 Jul, [facility] [place] [facility] [address] [id number] [place] [address]- 0996 Jul, [facility] [place] [facility] [address] [facility] [id number], [place] [address]- 5257 Jun, [facility] [place] [facility] [address] [id number] [place] [address]- 6740 Jun, [facility] [place] [facility] [address] [id number] [place] [address]- 4459 16 Jun, 2013 [facility] [place] [facility] [address] [id number] [place] [address]- 5616 16 Jun, 2013 [facility] [place] [facility] [address] [id number] [place] [address] 2546 11 Jun, 2013 [facility] [place] [facility] [address] [id number] [place] [address] 2546 11 Jun, 2013 [facility] [place] [facility] [address] [id number] [place] [address] 2544 04 Jun, 2013 [facility] [place] [facility] [address] [id number] [place] [address]- 8473 04 Jun, 2013 [facility] [place] [facility] [address] [id number] [place] [address]- 0556 03 Jun, 2013 [facility] [place] [facility] [address] [id number] [place] [address]- 9162 Jun, 2013 [facility] [place] [facility] [address] [id number] [place] [address]- 4881 Jun, 2013 [facility] [place] [facility] [address] [id number] [place] [address]- 7397 May, [facility] [place] [facility] [address] [id number] [place] [address]- 5091 May, [facility] [place] [facility] [address] [id number] [place] [address]- 4029 Apr, [facility] [place] [facility] [address] [id number] [place] [address]- 6454 Apr, [facility] [place] [facility] [address] [id number] [place] [address]- 2642 Apr, [facility] [place] [facility] [address] [id number] [place] [address]- 4388 Apr, [facility] [place] [facility] [address] [id number] [place] [address]- 1804 Apr, [facility] [place] [facility] [address] [id number] [place] [address]- 8646 Apr, [facility] [place] [facility] [address] [id number] [place] [address]- 7630 Apr, [facility] [place] [facility] [address] [id number] [place] [address]- 0323 Apr, [facility] [place] [facility] [address] [id number] [place] [address]- 4538 Apr, [facility] [place] [facility] [address] [id number] [place] [address]- 1612 Apr, [facility] [place] [facility] [address] [id number] [place] [address]- 7388 Mar, [facility] [place] [facility] [address] [id number] [place] [address]- 4133 Mar, [facility] [place] [facility] [address] [id number] [place] [address]- 4199 Mar, [facility] [place] [facility] [address] [id number] [place] [address]- 3960 Mar, [facility] [place] [facility] [address] [id number] [place] [address]- 1589 Mar, [facility] [place] [facility] [address] [id number] [place] [address]- 5080 Mar, [facility] [place] [facility] [address] [id number] [place] [address]- 4626 Mar, [facility] [place] [facility] [address] [id number] [place] [address]- 7009 Mar, [facility] [place] [facility] [address] [id number] [place] [address]- 8470 Mar, [facility] [place] [facility] [address] [id number] [place] [address]- 8320 Mar, [facility] [place] [facility] [address] [id number] [place] [address]- 3098 Mar, [facility] [place] [facility] [address] [id number] [place] [address]- 9907 Mar, [facility] [place] [facility] [address] [id number] [place] [address]- 5350 Mar, [facility] [place] [facility] [address] [id number] [place] [address]- 2972 Mar, [facility] [place] [facility] [address] [id number] [place] [address]- 1844 Mar, [facility] [place] [facility] [address] [id number] [place] [address]- 1257 Mar, [facility] [place] [facility] [address] [id number] [place] [address]- 0646 February, [facility] [place] [facility] [address] [id number] [place] [address]- 6917 February, [facility] [place] [facility] [address] [id number] [place] [address]- 0073 Jan, [facility] [place] [facility] [address] [id number] [place] [address]- 5960 Jan, [facility] [place] [facility] [address] [id number] [place] [address]- 6755 Jan, [facility] [place] [facility] [address] [id number] [place] [address]- 7430 Jan, [facility] [place] [facility] [address] [id number] [place] [address]- 5227 Dec, [facility] [place] [facility] [address] [id number] [place] [address]- 0563 Dec, [facility] [place] [facility] [address] [id number] [place] [address]- 0665 Dec, [facility] [place] [facility] [address] [id number] [place] [address]- 5247 Dec, [facility] [place] [facility] [address] [id number] [place] [address]- 0257 Nov, [facility] [address] [id number] [place] [address]- 9796 Nov, [facility] [address] [id number] [place] [address]- 6892 Oct, [facility] [address] [id number] [place] [address]- 7240 Oct, [facility] [address] [id number] [place] [address]- 9743 Oct, [facility] [address] [id number] [place] [address]- 7155 Oct, [facility] [address] [id number] [place] [address]- 3528 Oct, [facility] [address] [id number] [place] [address]- 5925 Oct, [facility] [address] [id number] [place] [address]- 0306 Jun, [facility] [address] [id number] [place] [address]- 3216 Jun, [facility] [address] [id number] [place] [address]- 2546 Jun, [facility] [address] [id number] [place] [address] Jun, [facility] [address] [id number] [place] [address]- 2546 Apr, [facility] [place] [facility] [address] [id number] [place] [address] Apr, [facility] [address] [id number] [place] [address] Apr, [facility] [address] [id number] [place] [address] Apr, [facility] [address] [id number] [place] [address] 2009 Mar, [facility] [address] [id number] [place] [address] Mar, [facility] [address] [id number] [place] [address] February, [facility] [address] [id number] [place] [address] Jan, [facility] [address] [id number] [place] [address] Jan, [facility] [address] [id number] [place] [address] Jan, [facility] [address] [id number] [place] [address] Dec, [facility] [place] [facility] [address] [id number] [place] [address] Dec, [facility] [address] [id number] [place] [address] Dec, [facility] [place] [facility] [address] [id number] [place] [address] Nov, [facility] [place] [facility] [address] [id number] [place] [address] Nov, [facility] [place] [facility] [address] [id number], [place] [address] Oct, [facility] [place] [facility] [address] [id number] [place] [address] Oct, [facility] [place] [facility] [address] [id number] [place] [address] Oct, [facility] [place] [facility] [address] [id number] [place] [address] Sep, [facility] [place] [facility] [address] [id number] [place] [address] Sep, [facility] [address] [id number] [place] [address] Sep, [facility] [place] [facility] [address] [id number] [place] [address] Sep, [facility] [address] [id number] [place] [address] Sep, [facility] [address] [id number] [place] [address] Sep, [facility] [address] [id number] [place] [address] Sep, [facility] [address] [id number] [place] [address] Sep, [facility] [address] [facility] [id number] [place] [address] Aug, [facility] [address] [id number] [place] [address] Aug, [facility] [address] [facility] [id number] [place] [address] Jul, [facility] [address] [facility] [id number], [place] [address] Jul, [facility] [place] [facility] [address] [facility] [id number] [place] [address] Jul, [facility] [address] [facility] [id number], [place] [address] Jul, [facility] [place] [facility] [address] [facility] [id number] [place] [address] Jun, [facility] [place] [facility] [address] [facility] [id number], [place] [address] Jun, [facility] [address] [id number] [place] [id number] Jun, [facility] [address] [id number] [place] [id number] Jun, 2012 [facility] [address] [id number] [place] [address] 11 Jun, 2012 [facility] [place] [facility] [address] [id number] [place] [address] 10 Jun, 2012 [facility] [address] [id number] [place] [address] 08 Jun, 2012 [facility] [place] [facility] [address] [id number] [place] [address] 05 Jun, 2012 [facility] [address] [id number] [place] [address] May, [facility] [address] [id number] [place] [address] May, [facility] [address] [id number] [place] [address] May, [facility] [address] [id number] [place] [address] May, [facility] [place] [facility] [address] [id number] [place] [address] May, [facility] [address] [id number] [place] [address] May, [facility] [place] [facility] [id number] [id number] May, [facility] [place] [facility] [address] [id number] [place] [address] Apr, [facility] [place] [facility] [address] [id number] [place] [id number] Apr, [facility] [place] [facility] [address] [id number] [place] [address] Apr, [facility] [place] [facility] [address] [id number] [place] [address] Apr, [facility] [place] [facility] [address] [id number] [place] [address] Apr, [facility] [place] [facility] [address] [id number] [place] [address] Apr, [facility] [place] [facility] [address] [id number] [place] [address] Apr, [facility] [place] [facility] [address] [id number] [place] [address] Apr, [facility] [address] [id number] [place] [address] Apr, [facility] [place] [facility] [address] [id number] [place] [address] Apr, [facility] [address] [id number] [place] [address] Mar, [facility] [address] [id number] [place] [address] February, [facility] [address] [id number] [place] [address] Jan, [facility] [address] [id number] [place] [address] Dec, [facility] [place] [facility] [address] [id number] [place] [address] Dec, [facility] [place] [facility] [address] [id number] [id number] Nov, [facility] [place] [facility] [address] [id number] [place] [address] Nov, [facility] [place] [facility] [address] [id number] [place] [address] Nov, [facility] [place] [facility] [address] [id number] [place] [address] Nov, [facility] [place] [facility] [address] [id number], [place] [address] Nov, [facility] [address] [facility] [id number], [place] [address] Nov, [facility] [id number], [place] [address] Nov, [facility] [address] [facility] [id number] [id number] Oct, [facility] [address] [id number], [place] [address] Oct, [facility] [address], [place] [address] Oct, [facility] [address], [place] [address] Oct, [facility] [address], [place] [address] Oct, [facility] [address], [place] [address] Oct, [facility] [address], [place] [address] Sep, [facility] [address], [place] [address] Aug, [facility] [address], [place] [address] Jul, [facility] [address], [place] [address] Jul, [facility] [address], [place] [address] Jul, [facility] [address], [place] [address] Jul, [facility] [address], [place] [address] Jul, IMMUNIZATIONS No Known Immunizations SOCIAL HISTORY Never Assessed REASON FOR VISIT labs PLAN OF CARE VITAL SIGNS MEDICATIONS Unknown [...]
[2018-12-17] MEDS ORDERED: NS IV 500 ML 500 ML IV PRN (08:34)
[2018-12-17] MEDS ORDERED: fentaNYL INJECTION 100 MCG/2 ML AMP IVP ONE (08:45)
[2018-12-17] MEDS ORDERED: MIDAZOLAM 2 MG/2 ML (VERSED) VIAL IVP ONE (08:45)
[2018-12-17] MEDS ORDERED: MIDAZOLAM 2 MG/2 ML (VERSED) VIAL ONE ×3 (08:59)
[2018-12-17] MEDS ORDERED: fentaNYL INJECTION 100 MCG/2 ML AMP ONE (08:59)
[2018-12-17 10:00] VITALS: BP 95/53
[2018-12-17 10:30] VITALS: BP 104/67
[2018-12-17 10:43] VITALS: BP 104/67
--- NOTE | 2018-12-17 10:50 | Diagnostic Imaging Report ---
INDICATION: Post bronchoscopy. COMPARISON: 10/25/2018. FINDINGS: Five lobe nodular interstitial opacities are present but have overall improved in magnitude and severity from previous. The heart size is likely decreased. There is no pneumothorax nor evidence for pneumomediastinum and no appreciable pleural fluid. IMPRESSION: Improvements in five lobe nodular interstitial opacities with no adverse development or postprocedural complication radiographically apparent. Dictated by: Dictated on workstation # [id number]
--- NOTE | 2018-12-17 12:03 | Pulmonary Procedures ---
Pulmonary Procedures Date of Procedure Date of Service: Dec 17, 2018 Bronch Bronchoscopy with fluoroscopy and RML bronchoalveolar lavage (BAL), washes and, transbronchial brushes. Preop DX ILD Postop DX: same Complications: none After informed consent obtained and formal time out pt was sedated using Fentanyl and Versed. Bronchoscope was advanced through the nare and vocal cords. 1% lidocaine was used to anesthetize vocal cords, epiglottis, dayne, and left/right main stem bronchus. An anatomical tour was undertaken down to the segmental bronchi bilaterally. No endobronchial lesions noted. Bronchoscopy with fluoroscopy and RML bronchoalveolar lavage (BAL), washes and, transbronchial brushes were obtained. Pt tolerated procedure well. No complications noted. Stat CXR is pending. DOUG SAMUEL DO Dec 17, 2018 12:03
--- NOTE | 2018-12-17 12:14 | Diagnostic Imaging Report ---
Clinical indication: Bronchoscopy performed by Dr. Hightower. Fluoroscopy provided. Exam: Limited intraprocedural x-ray of the chest. Comparison: Chest x-ray dated 10/25/2018. Findings and impression: Single limited x-ray view of the chest shows bronchoscopy. Please see surgeon's report for more detail. Fluoroscopy was provided for surgeons and a total of 5.1 seconds and 71.53 mrad was provided. Dictated by: Dictated on workstation # [id number]
[2018-12-17 12:26] LABS: BF OTHER CELLS 28 %; BODY FLUID APPEARENCE SLT CLDY; BODY FLUID COLOR COLORLESS; BODY FLUID SOURCE BRONCH LAVAGE; LYMPHOCYTES,BODY FLUID 11 %
== END 2018-12-17 10:50 | disposition home or self-care (01) ==
LOC: ENDO 07:57
PROVIDERS: ATTEND Internal Medicine Critical Care Medicine
DX: J84.9 Interstitial pulmonary disease, unspecified (principal); J44.9 Chronic obstructive pulmonary disease, unspecified; G47.30 Sleep apnea, unspecified; Z87.01 Personal history of pneumonia (recurrent); Z79.01 Long term (current) use of anticoagulants; Z79.84 Long term (current) use of oral hypoglycemic drugs; Z79.899 Other long term (current) drug therapy
CPT/HCPCS: 71045; 87015; 87070; 87101; 87116; 87205; 87206; 88112; 88305; 88312; 89051; 94640

== ENCOUNTER → 2019-01-18 | Outpatient (CLI) | payer MEDICARE, OTHER ==
[~2019-01-18] MED LIST changes: +CATHETER FLUSH 10 ML SYR IV PRN; +HOLD METFORMIN - RECEIVED CONTRAST 20 ML VIAL IV SCH; +IOHEXOL 350 MG/ML 100 ML (OMNIPAQUE 350) VIAL IV ONE; +NS 100 ML (IVPB) BAG IV ONE; -ROSU10TA PO; +ROSU10TA22 PO; +RT-ALBUTEROL SULF 2.5 MG/3 ML PRE-MIX VIAL INH ONE
[2019-01-18 09:47] LABS: BUN/CREATININE RATIO 36; GFR ESTIMATED > 60
--- NOTE | 2019-01-18 11:30 | Diagnostic Imaging Report ---
PROCEDURE: CT chest with contrast only. TECHNIQUE: Multiple contiguous axial images were obtained through the chest after administration of intravenous contrast. Auto Exposure Controls were utilized during the CT exam to meet ALARA standards for radiation dose reduction. INDICATION: Pneumonia, followup. Correlation is made with prior CT chest from 12/01/2018. No axillary lymphadenopathy is seen. A right paraesophageal lymph node previously described is stable at 9 mm. Subcarinal node is stable at 21 mm x 8 mm compared to 22 mm x 10 mm on prior. No new mediastinal lymphadenopathy is detected. Alicia appear stable. No pericardial or pleural fluid is detected. Interstitial changes bilateral upper lobes appear similar to prior exam. There is some mild nodular thickening of the major fissure on the right, unchanged. Coarse interstitial opacities bilateral lower lobes persists. A questionable airspace infiltrate in the left lower lobe noted on prior study does appear to be improved. Upper abdomen does demonstrate hepatic steatosis. IMPRESSION: 1. Improvement in left lower lobe airspace infiltrate when compared with prior CT from 12/01/2018. There continues to be diffuse interstitial fibrotic changes bilateral upper and lower lobes. Dictated by: Dictated on workstation # [id number]
== END ==
LOC: RT 09:19
PROVIDERS: ATTEND Nurse Practitioner Family
DX: J44.9 Chronic obstructive pulmonary disease, unspecified (principal); R06.00 Dyspnea, unspecified; J84.9 Interstitial pulmonary disease, unspecified; G47.30 Sleep apnea, unspecified; R09.02 Hypoxemia
CPT/HCPCS: 36415; 71260; 82565; 84520; 94060; 94640; 94726; 94729

== ENCOUNTER → 2019-01-19 | Outpatient (CLI) | payer MEDICARE ==
[~2019-01-19] VITALS: Ht 167.6 cm; Wt 81.6 kg
[~2019-01-19] MED LIST changes: -HOLD METFORMIN - RECEIVED CONTRAST 20 ML VIAL IV SCH; -IOHEXOL 350 MG/ML 100 ML (OMNIPAQUE 350) VIAL IV ONE; -NS 100 ML (IVPB) BAG IV ONE; +REGADENOSON 0.4 MG/5 ML SYR (LEXISCAN) IV ONE; -RT-ALBUTEROL SULF 2.5 MG/3 ML PRE-MIX VIAL INH ONE
[2019-01-19 09:08] VITALS: BP 121/63
--- NOTE | 2019-01-19 14:29 | STRESS TEST ---
DATE OF SERVICE: 01/19/2019 RESTING AND POST REGADENOSON TECHNETIUM-99M TETROFOSMIN SPECT CT IMAGING ORDERING PHYSICIAN: MARIETTA Hinkle. PRIMARY PHYSICIAN: Usha Wilson APRN. CLINICAL DIAGNOSES: Coronary artery disease, hypertension, paroxysmal atrial fibrillation. Baseline images were carried out after injection of 10.17 mCi technetium-99m Tetrofosmin. This was followed by 0.4 mg regadenoson and 31.9 mCi technetium-99m Tetrofosmin for stress imaging. The electrocardiogram showed sinus rhythm at baseline. It did not change significantly with the regadenoson infusion. The patient tolerated the procedure well. Review of images at rest and following stress does not indicate any significant perfusion defects consistent with myocardial ischemia or infarction. Gated images show normal to hyperdynamic left ventricular systolic function with a calculated ejection fraction of 94%. Left ventricular end diastolic volume is 44 mL. TID is absent (0.89). CONCLUSION: 1. No evidence of any significant myocardial ischemia or infarction is seen. 2. Hyperdynamic left ventricular systolic function. Left ventricular ejection fraction is calculated to be 94%. 3. No regional wall motion abnormalities. Job ID: [id number] DocumentID: [id number] Dictated Date: 01/19/2019 14:11:57 Restaurant Assistant Manager Date: 01/19/2019 14:29:19 Dictated By: BO MCCORMICK MD, MA, FACP, FACC,
== END ==
LOC: CARD 07:02
PROVIDERS: ATTEND Nurse Practitioner Family
DX: I25.10 Atherosclerotic heart disease of native coronary artery without angina pectoris (principal); R06.02 Shortness of breath; I10 Essential (primary) hypertension; I48.0 Paroxysmal atrial fibrillation; I70.213 Atherosclerosis of native arteries of extremities with intermittent claudication, bilateral legs; G47.33 Obstructive sleep apnea (adult) (pediatric)
CPT/HCPCS: 78452; 93017

== ENCOUNTER 2019-02-18 09:00 | Outpatient (RCR) | payer MEDICARE, OTHER ==
[2018-11-23 09:28] VITALS: BP 120/40
--- NOTE | 2018-11-23 10:18 | Pulmonary Rehab Eval/Txmt Plan ---
Pulmonary Rehab Initial Eval Information Paper Evaluation Completed: No Date: Nov 23, 2018 Therapist: TERRELL EDGE Diagnosis: ILD Referring Physician: ARIANA SANTOS Primary Insurance: MEDICARE Secondary Insurance: NONE; [employer] PENDING Pulmonary Rehab Treatment Plan Treatment P Treatment [place]: Initial Diagnosis Diagnosis: ILD Date: Nov 23, 2018 Barriers to Learning Barriers: None Assessment/Problems Exercise: Deconditioning, Decreased Exer Tolerance, No Regular Exercise, Sedentary Type: AEROBIC Frequency: 2 X'S PER WEEK Duration: 1 HR CLASS; EXERCISE PER PT'S TOLERANCE Barriers to Exercise: BACK [place] & POOR BALANCE Initial MET Level: 1 Aerobic Exercise/Goals Freq: time per week minus [place]: 2 MET Level=: 1 Type: Arm Ergometry, Bike, Scifi/Nustep, Treadmill, Walking JAGDISH VASQUEZ DO Nov 23, 2018 10:18
[2019-01-05 08:55] VITALS: BP 130/70
[2019-01-05 09:45] VITALS: BP 128/60
[2019-01-07 09:00] VITALS: BP 120/60
[2019-01-07 09:47] VITALS: BP 148/60
[2019-01-12 08:48] VITALS: BP 110/56
[2019-01-14 08:53] VITALS: BP 130/60
[2019-01-14 09:55] VITALS: BP 130/64
[2019-01-21 08:50] VITALS: BP 124/58
[2019-01-21 09:55] VITALS: BP 123/60
[2019-01-26 09:00] VITALS: BP 116/60
[2019-01-26 10:00] VITALS: BP 110/70
[2019-01-28 08:50] VITALS: BP 108/60
[2019-01-28 09:52] VITALS: BP 100/60
[2019-02-02 08:53] VITALS: BP 140/50
[2019-02-02 09:38] VITALS: BP 115/40
[2019-02-11 08:50] VITALS: BP 160/60
[2019-02-11 09:55] VITALS: BP 102/70
[2019-02-16 09:00] VITALS: BP 106/92
[2019-02-16 09:47] VITALS: BP 110/62
[~2019-02-18] VITALS: Ht 167.6 cm; Wt 80.7 kg
[2019-02-18 09:00] VITALS: BP 109/62
[~2019-02-18 09:00] MED LIST changes: -CATHETER FLUSH 10 ML SYR IV PRN; -REGADENOSON 0.4 MG/5 ML SYR (LEXISCAN) IV ONE
[2019-02-18 09:46] VITALS: BP 110/68
[2019-02-23 09:00] VITALS: BP 120/60
[2019-02-23 10:00] VITALS: BP 120/60
== END 2019-02-21 | disposition home or self-care (01) ==
LOC: PULM 09:00
PROVIDERS: ATTEND Nurse Practitioner Family
DX: J44.9 Chronic obstructive pulmonary disease, unspecified (principal); R06.00 Dyspnea, unspecified; J18.9 Pneumonia, unspecified organism; G47.30 Sleep apnea, unspecified; R09.02 Hypoxemia

== ENCOUNTER 2019-03-16 08:58 | Outpatient (RCR) | payer MEDICARE, OTHER ==
[2019-02-25 09:00] VITALS: BP 100/40
[2019-02-25 09:55] VITALS: BP 102/60
[2019-03-02 08:50] VITALS: BP 103/60
[2019-03-02 10:00] VITALS: BP 107/50
[2019-03-04 08:50] VITALS: BP 106/62
[2019-03-04 09:58] VITALS: BP 100/60
[2019-03-09 09:00] VITALS: BP 100/50
[2019-03-09 10:00] VITALS: BP 106/50
[2019-03-11 08:50] VITALS: BP 130/60
[2019-03-11 09:53] VITALS: BP 140/60
[2019-03-16 08:55] VITALS: BP 130/40
[2019-03-16 09:44] VITALS: BP 120/50
== END 2019-05-26 ==
LOC: PULM 08:58
PROVIDERS: ATTEND Nurse Practitioner Family
DX: J44.9 Chronic obstructive pulmonary disease, unspecified (principal); J84.9 Interstitial pulmonary disease, unspecified; J18.9 Pneumonia, unspecified organism; G47.33 Obstructive sleep apnea (adult) (pediatric); R09.02 Hypoxemia

== ENCOUNTER → 2019-03-23 | Outpatient (CLI) | payer MEDICARE ==
--- NOTE | 2019-03-23 10:42 | Diagnostic Imaging Report ---
INDICATION: Arthritis, long-term steroid use, current and chronic use of steroids. COMPARISON: None available. FINDINGS: AP Spine L1-L4: [BMD (g/cm2): 1.521] [T-Score: 2.3] [Z-Score: 2.6] [BMD Previous: N/A] [BMD % Change: N/A] LT Hip Neck: [BMD (g/cm2): 0.840] [T-Score: -1.8] [Z-Score: -0.8] LT Hip Total: [BMD (g/cm2):0.982] [T-Score:-0.8] [Z-Score: -0.4] [BMD Previous: N/A] [BMD % Change: N/A] RT Hip Neck: [BMD (g/cm2):0.983] [T-Score:-0.7] [Z-Score:0.3] RT Hip Total: [BMD (g/cm2):1.066] [T-score:-0.2] [Z-Score:0.2] [BMD Previous:N/A] [BMD % Change:N/A] *Indicates significant change from prior examination based on 95% confidence level. World Health Organization criteria for BMD interpretation classify patients as Normal (T-score at or above -1.0), Osteopenic (T-score between -1.0 and -2.5) or Osteoporotic (T-score at or below -2.5). LIMITATIONS AND MODIFICATION: None. FRACTURE RISK (FRAX SCORE): The ten year probability of (%): Major Osteoporotic Fracture: [6.7] Hip Fracture: [1.1] IMPRESSION: 1. Normal bone mineral density. 2. Baseline examination. 3. See below National Osteoporosis Foundation guidelines on when to potentially initiate pharmacologic therapy. Based on the National Osteoporosis Foundation Guidelines, pharmacologic treatment should be initiated in any of the following, unless clinical conditions suggest otherwise: * Any patient with prior fragility fracture of the hip or vertebrae. A spine fracture indicates 5X risk for subsequent spine fracture and 2X risk for subsequent hip fracture. * Osteoporosis (T-score <-2.5). * Postmenopausal women and men age 50 and older with low bone mass/osteopenia (T-score between -1.0 and -2.5) by DXA and 10-year major osteoporotic fracture greater than 20% or a 10-year probability of hip fracture greater than 3%. These fracture risks are supplied above in the FRAX score, if applicable. * Clinician judgement and/or patient preferences may indicate treatment for people with 10-year fracture probabilities above or below these levels. Dictated by: Dictated on workstation # [id number]
== END ==
LOC: RAD 08:22
PROVIDERS: ATTEND Nurse Practitioner Family
DX: M19.90 Unspecified osteoarthritis, unspecified site (principal); Z79.52 Long term (current) use of systemic steroids
CPT/HCPCS: 77080

== ENCOUNTER → 2019-07-27 | Outpatient (CLI) | payer MEDICARE, OTHER ==
[~2019-07-27] MED LIST changes: +HOLD METFORMIN - RECEIVED CONTRAST 20 ML VIAL IV SCH; +IOHEXOL 350 MG/ML 100 ML (OMNIPAQUE 350) VIAL IV ONE; +NS 100 ML (IVPB) BAG IV ONE; -OMEP20CA12 PO; +OMEP20CA13 PO; -ROSU10TA27 PO; +ROSU10TA28 PO; -ROSU20TA31 PO; +ROSU20TA32 PO
[2019-07-27 09:27] LABS: BUN/CREATININE RATIO 38; CREATININE SERUM 0.82 MG/DL (0.60-1.30); GFR ESTIMATED > 60
--- NOTE | 2019-07-27 11:03 | Diagnostic Imaging Report ---
PROCEDURE: CT chest with contrast only. TECHNIQUE: Multiple contiguous axial images were obtained through the chest after administration of intravenous contrast. Auto Exposure Controls were utilized during the CT exam to meet ALARA standards for radiation dose reduction. INDICATION: Dyspnea. History of lung nodule, follow-up. CORRELATION STUDY: CT chest studies, most recent 01/18/2019, baseline 05/11/2014. FINDINGS: Heart size is borderline enlarged. Scattered coronary artery calcification. There is rather prominent pericardial fat present. Gastroesophageal junction is unremarkable. A few small but nonpathologic enlarged shotty mediastinal lymph nodes. Relatively stable 9 mm nodule in the high right mediastinum. A thin elongated density over the low esophagus subcarinal region appears relatively stable, 3.3 x 0.5 cm measured in a similar fashion, previously measuring 2.7 x 0.8 cm. There is rather severe fibroemphysematous change about the lung parenchyma. The fibrotic type changes with prominent interstitial markings overall has increased from prior studies. Findings reflecting hepatic steatosis. Cholecystectomy changes. Rounded nodules right kidney favoring probable cysts. Advanced degenerative change of thoracic spine with extensive bridging osteophytes through a large portion of the spine. IMPRESSION: 1. Rather markedly advanced interstitial fibrosis progressed from baseline studies. No definitive superimposed infiltrate or mass lesion. Dictated by: Dictated on workstation # [id number]
== END ==
LOC: RAD 08:55
PROVIDERS: ATTEND Internal Medicine Critical Care Medicine
DX: J84.10 Pulmonary fibrosis, unspecified (principal); G47.33 Obstructive sleep apnea (adult) (pediatric); J98.4 Other disorders of lung; R91.1 Solitary pulmonary nodule; R91.8 Other nonspecific abnormal finding of lung field
CPT/HCPCS: 36415; 71260; 82565; 84520

== ENCOUNTER 2019-10-05 20:30 | Inpatient (IN) | payer MEDICARE, OTHER ==
[~2019-10-05] VITALS: Ht 167.7 cm; Wt 85.5 kg
[~2019-10-05 20:30] MED LIST changes: -HOLD METFORMIN - RECEIVED CONTRAST 20 ML VIAL IV SCH; -IOHEXOL 350 MG/ML 100 ML (OMNIPAQUE 350) VIAL IV ONE; -NS 100 ML (IVPB) BAG IV ONE; +PIPERACILLIN/TAZO 4.5 GM/NS 100 ML IV SCH
[2019-10-05 21:04] LABS: BASOPHILS % (AUTO) 0 % (0-10); EOSINOPHILS % (AUTO) 1 % (0-10); HEMATOCRIT 39 % (40-54); HEMOGLOBIN 12.1 G/DL (13.3-17.7); LYMPHOCYTES # (AUTO) 0.7 X 10^3 (1.0-4.0); LYMPHOCYTES % (AUTO) 8 % (12-44); MEAN CORPUSCULAR HEMOGLOBIN 28 PG (25-34); MEAN CORPUSCULAR HGB CONC 31 G/DL (32-36); MEAN CORPUSCULAR VOLUME 89 FL (80-99); MEAN PLATELET VOLUME 9.7 FL (7.4-10.4); MONOCYTES # (AUTO) 0.5 X 10^3 (0.0-1.0); MONOCYTES % (AUTO) 6 % (0-12); NEUTROPHILS % (AUTO) 85 % (42-75); PLATELET COUNT 144 10^3/uL (130-400); RED CELL DISTRIBUTION WIDTH 17.3 % (10.0-14.5); WHITE BLOOD COUNT 8.2 10^3/uL (4.3-11.0)
[2019-10-05] MEDS ORDERED: NS IV 1000 ML 1,000 ML IV SCH ×2 (21:04→21:57)
[2019-10-05 21:23] LABS: INR 1.5 (0.8-1.4)
[2019-10-05 21:25] LABS: ALANINE AMINOTRANSFERASE 42 U/L (0-55); ALBUMIN 3.6 GM/DL (3.2-4.5); ALKALINE PHOSPHATASE 60 U/L (40-136); BILIRUBIN,TOTAL 0.4 MG/DL (0.1-1.0); BUN/CREATININE RATIO 22; CALCIUM 9.3 MG/DL (8.5-10.1); CARBON DIOXIDE 21 MMOL/L (21-32); CHLORIDE 105 MMOL/L (98-107); CREATININE SERUM 0.95 MG/DL (0.60-1.30); GFR ESTIMATED > 60; GLUCOSE 220 MG/DL (70-105); POTASSIUM 3.3 MMOL/L (3.6-5.0); SODIUM 140 MMOL/L (135-145); TOTAL PROTEIN 6.6 GM/DL (6.4-8.2)
--- NOTE | 2019-10-05 21:48 | Diagnostic Imaging Report ---
EXAM: CHEST PA/LAT (2 VIEW) INDICATION: Cough. Dyspnea. COMPARISON: CT chest 07/27/2019. FINDINGS: Cardiomegaly with normal central pulmonary vascularity. Increasing interstitial and airspace opacities in the lung bases. No definite pleural effusion or pneumothorax. No acute osseous findings IMPRESSION: 1. Increasing interstitial and airspace opacities in the lung bases suspicious for pneumonitis. 2. Stable cardiomegaly. Dictated by: Dictated on workstation # [id number]
[2019-10-05] MEDS ORDERED: PIPERACILLIN SODIUM/TAZOBACTAM 4.5 GM in NS (IVPB) 100 ML IV ONE (22:00)
[2019-10-05] MEDS ORDERED: RT-ALBUTEROL/IPRATROPIUM 3 ML (DUONEB) VIAL INH ONE (22:00)
--- NOTE | 2019-10-05 22:27 | ED General ---
General Chief Complaint: Respiratory Problems Stated Complaint: CHEST PAIN Nursing Triage Note: PT TO RM 7 BY WHEELCHAIR WITH SOA, COUGH, AND CONGESTION. PT STATES THE SYMPTOMS STARTED FRIDAY AND HAVE WORSENED. PT WEARS 3L O2 AND STATES HE HAS HAD TO TURN UP TO 5L. Nursing Sepsis Screen: No Definite Risk Source of Information: Patient Exam Limitations: No Limitations History of Present Illness Date Seen by Provider: Oct 05, 2019 Time Seen by Provider: 20:38 Initial Comments This 63-year-old gentleman presents to the emergency room with subjective fever and chills, vomiting, shortness of breath, and productive cough. He has been ill since the morning of October 12. He has a history of multiple admissions for pneumonia in the past. He has "pigeon lung" and COPD. He sees Dr. Hightower. He also has atrial fibrillation and sees Dr. Dominguez. He is anticoagulated on Eliquis. He has Bettie taken his Eliquis dose tonight. He uses supplemental oxygen usually at 3 L/m at home. He did increase his rate for a while today. He is afebrile at present. Allergies and Home Medications Allergies Coded Allergies: atorvastatin (Verified Allergy, Mild, 03/26/17) Patient states that his bones ached and he wasn't able to tolerate it. Home Medications Albuterol Sulfate 2.5 Mg/3 Ml Vial.neb, 2.5 MG IH Q4H PRN for SHORTNESS OF BREATH, (Reported) Allopurinol 300 Mg Tablet, 300 MG PO HS, (Reported) Apixaban 5 Mg Tablet, 5 MG PO BID, (Reported) Budesonide/Formoterol Fumarate 10.2 Gm Hfa.aer.ad, 2 PUFF IH DAILY, (Reported) Doxycycline Hyclate 100 Mg Tablet, 100 MG PO BID, (Reported) Fenofibrate Nanocrystallized 145 Mg Tablet, 145 MG PO HS, (Reported) Fluoxetine HCl 20 Mg Capsule, 40 MG PO DAILY, (Reported) TAKES 2 (20MG) CAPSULES Fluticasone Propionate 16 Gm [place].susp, 1 SPRAY NS BID PRN for CONGESTION, (Reported) Gabapentin 300 Mg Capsule, 300 MG PO HS, (Reported) Glimepiride 4 Mg Tablet, 4 MG PO DAILY, (Reported) Lisinopril/Hydrochlorothiazide 1 Each Tablet, 1 TAB PO HS, (Reported) Magnesium Oxide 400 Mg Tablet, 400 MG PO DAILY, (Reported) Metformin HCl 500 Mg Tablet, 500 MG PO BID, (Reported) Metoprolol Succinate 25 Mg Tab.er.24h, 25 MG PO HS, (Reported) Montelukast Sodium 10 Mg Tablet, 10 MG PO HS, (Reported) [place] 3 Polyunsat Fatty Acids 1,000 Mg Cap, 1,000 MG PO BID, (Reported) Omeprazole 20 Mg Capsule.dr, 20 MG PO DAILY, (Reported) Potassium Gluconate 99 Mg Tablet, 99 MG PO DAILY, (Reported) Rosuvastatin Calcium 10 Mg Tablet, 10 MG PO HS, (Reported) Umeclidinium [place] 62.5 Mcg Blst.w.dev, 1 PUFF IH DAILY, (Reported) Patient Home Medication List Home Medication List Reviewed: Yes Review of Systems Review of Systems Constitutional: see HPI EENTM: no symptoms reported Respiratory: see HPI Cardiovascular: see HPI Gastrointestinal: see HPI Genitourinary: no symptoms reported Musculoskeletal: no symptoms reported Skin: no symptoms reported Psychiatric/Neurological: No Symptoms Reported Hematologic/Lymphatic: No Symptoms Reported Immunological/Allergic: no symptoms reported Past Erzzvlb-Ucmxrn-Radbzk Hx Patient Social History Alcohol Use: Denies Use Recreational Drug Use: No Smoking Status: Former Smoker Former Smoker, Quit: Nov 23, 1975 2nd Hand Smoke Exposure: No Recent Foreign Travel: No Contact w/Someone Who Travel: No Recent Infectious Disease Expo: No Recent Hopitalizations: No Physical Abuse: No Sexual Abuse: No Mistreated: No Fear: No Immunizations Up To Date Tetanus Booster (TDap): Unknown PED Vaccines UTD: No Date of Pneumonia Vaccine: Jul 28, 2012 Date of Influenza Vaccine: Aug 03, 2018 Seasonal Allergies Seasonal Allergies: Yes Past Medical History Surgeries: Yes (umb hernia) Abdominal, Appendectomy, Cardiac, Coronary Stent, Eye Surgery, Gallbladder, Renal Respiratory: Yes ("pigeon's disease"" URIBE'S LUNG" WITH FREQUENT PNEUMONIA; CPAP AT HS) Pneumonia, Chronic Bronchitis, Sleep Apnea, COPD Currently Using CPAP: Yes Cardiac: Yes Atrial Fibrillation, Coronary Artery Disease, High Cholesterol, Hypertension, Peripheral Vascular Neurological: No Reproductive Disorders: No Sexually Transmitted Disease: No HIV/AIDS: No Genitourinary: Yes Kidney Stones Gastrointestinal: Yes (UMBILICAL HERNIA REPAIR) Gastroesophageal Reflux Musculoskeletal: Yes (ch. right shoulder pain) Degenerate Disk Disease, Arthritis, Chronic Back Pain, Gout Endocrine: Yes Diabetes, Non-Insulin dep HEENT: Yes (EYE SURGERY CHILD) Loss of Vision: Denies Cancer: No Psychosocial: Yes Anxiety, Depression Integumentary: No Blood Disorders: No Adverse Reaction/Blood Tranf: No Family Medical History Reviewed Nursing Family Hx Arthritis 19 FATHER Respiratory disorder 19 FATHER 19 MOTHER Thyroid disease 19 MOTHER No Family History of: AIDS Abdominal aortic aneurysm Alcoholism Alzheimer's disease Asthma Cardiovascular disease Dementia Diabetes mellitus Drug abuse Hypertension Kidney disease Myocardial infarction Parkinson's disease Psychosocial problem Seizure disorder Lung Disease Physical Exam-Suspected Sepsis Physical Exam Vital Signs Vital Signs - First Documented 10/05/19 22:12 FiO2 2 Capillary Refill : Less Than 3 Seconds Blood Pressure Mean: 91 POS Height, Weight, BMI Height: 5'6.00" Weight: 179lbs. 8.0oz. 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, 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 Norm as Tested Skin: normal color, warm/dry Focused Exam Lactate Level 10/05/19 20:48: Lactic Acid Level 1.65 Lactic Acid Level Laboratory Tests Test 10/05/19 20:48 Lactic Acid Level 1.65 MMOL/L (0.50-2.00) Progress/Results/Core Measures Suspected Sepsis Recent Fever Within 48 Hours: No Infection Criteria Present: None New/Unexplained Altered Menta: No Sepsis Screen: No Definite Risk SIRS Temperature: Pulse: 121 Respiratory Rate: 17 Laboratory Tests 10/05/19 20:48: White Blood Count 8.2 Blood Pressure 126 /74 Mean: 91 10/05/19 20:48: Lactic Acid Level 1.65 Laboratory Tests 10/05/19 20:48: Creatinine 0.95, INR Comment 1.5H, Platelet Count 144, Total Bilirubin 0.4 Results/Orders Lab Results Laboratory Tests Test 10/05/19 20:48 10/05/19 22:58 Range/Units White Blood Count 8.2 4.3-11.0 10^3/uL Red Blood Count 4.35 4.35-5.85 10^6/uL Hemoglobin 12.1 L 13.3-17.7 G/DL Hematocrit 39 L 40-54 % Mean Corpuscular Volume 89 80-99 FL Mean Corpuscular Hemoglobin 28 25-34 PG Mean Corpuscular Hemoglobin Concent 31 L 32-36 G/DL Red Cell Distribution Width 17.3 H 10.0-14.5 % Platelet Count 144 130-400 10^3/uL Mean Platelet Volume 9.7 7.4-10.4 FL Neutrophils (%) (Auto) 85 H 42-75 % Lymphocytes (%) (Auto) 8 L 12-44 % Monocytes (%) (Auto) 6 0-12 % Eosinophils (%) (Auto) 1 0-10 % Basophils (%) (Auto) 0 0-10 % Neutrophils # (Auto) 7.0 1.8-7.8 X 10^3 Lymphocytes # (Auto) 0.7 L 1.0-4.0 X 10^3 Monocytes # (Auto) 0.5 0.0-1.0 X 10^3 Eosinophils # (Auto) 0.0 0.0-0.3 10^3/uL Basophils # (Auto) 0.0 0.0-0.1 10^3/uL Prothrombin Time 19.0 H 12.2-14.7 SEC INR Comment 1.5 H 0.8-1.4 Activated Partial Thromboplast Time 35 24-35 SEC Sodium Level 140 135-145 MMOL/L Potassium Level 3.3 L 3.6-5.0 MMOL/L Chloride Level 105 98-107 MMOL/L Carbon Dioxide Level 21 21-32 MMOL/L Anion Gap 14 5-14 MMOL/L Blood Urea Nitrogen 21 H 7-18 MG/DL Creatinine 0.95 0.60-1.30 MG/DL Estimat Glomerular Filtration Rate > 60 BUN/Creatinine Ratio 22 Glucose Level 220 H 70-105 MG/DL Lactic Acid Level 1.65 0.50-2.00 MMOL/L Calcium Level 9.3 8.5-10.1 MG/DL Corrected Calcium 9.6 8.5-10.1 MG/DL Total Bilirubin 0.4 0.1-1.0 MG/DL Aspartate Amino Transf (AST/SGOT) 31 5-34 U/L Alanine Aminotransferase (ALT/SGPT) 42 0-55 U/L Alkaline Phosphatase 60 40-136 U/L C-Reactive Protein High Sensitivity > 16.00 H 0.00-0.50 MG/DL Total Protein 6.6 6.4-8.2 GM/DL Albumin 3.6 3.2-4.5 GM/DL Urine Color YELLOW Urine Clarity CLEAR Urine pH 6.5 5-9 Urine Specific [place] 1.010 L 1.016-1.022 Urine Protein NEGATIVE NEGATIVE Urine Glucose (UA) 3+ H NEGATIVE Urine Ketones NEGATIVE NEGATIVE Urine Nitrite NEGATIVE NEGATIVE Urine Bilirubin NEGATIVE NEGATIVE Urine Urobilinogen 1.0 < = 1.0 MG/DL Urine Leukocyte Esterase NEGATIVE NEGATIVE Urine RBC (Auto) TRACE-I NEGATIVE Urine RBC 0-2 /HPF Urine WBC 0-2 /HPF Urine Crystals NONE /LPF Urine Bacteria TRACE /HPF Urine Casts NONE /LPF Urine Mucus NEGATIVE /LPF Urine Culture Indicated CULTURE PENDING Micro Results Microbiology 10/05/19 Influenza Types A,B Antigen (VICENTE) - Final, Complete My Orders Orders - CONRADO WEBSTER MD Cbc With Automated Diff (10/05/19 20:38) Comprehensive Metabolic Panel (10/05/19 20:38) Hs C Reactive Protein (10/05/19 20:38) Influenza A And B Antigens (10/05/19 20:38) Ed Iv/Invasive Line Start (10/05/19 20:38) Chest Pa/Lat (2 View) (10/05/19 20:38) Blood Culture (10/05/19 21:04) Sputum Culture (10/05/19 21:04) Urinalysis (10/05/19 21:04) Urine Culture (10/05/19 21:04) Protime With Inr (10/05/19 21:04) Partial Thromboplastin Time (10/05/19 21:04) Ed Iv/Invasive Line Start (10/05/19 21:04) Vital Signs Adult Sepsis Patie Q15M (10/05/19 21:04) O2 (10/05/19 21:04) Remove Rings In Anticipation O (10/05/19 21:04) Lactic Acid Analyzer (10/05/19 21:04) Ns Iv 1000 Ml (Sodium Chloride 0.9%) (10/05/19 21:04) Ns Iv 1000 Ml (Sodium Chloride 0.9%) (10/05/19 21:57) Piperacillin Sodium/Tazobactam (Zosyn Vi (10/05/19 22:00) Albuterol/Ipra Inhalation Soln (Duoneb I (10/05/19 22:00) Svn Small Volume Nebulizer (10/05/19 21:59) Potassium Chloride (Tablet) (Klor Con Ta (10/05/19 22:45) Medications Given in ED Current Medications Medications Dose Ordered Sig/Shabana Route Start Time Stop Time Status Last Admin Dose Admin Albuterol/ Ipratropium 3 ml ONCE ONCE INH 10/05/19 22:00 10/05/19 22:01 DC 10/05/19 22:12 3 ML Piperacillin Sod/ Tazobactam Sod 4.5 gm/Sodium Chloride 100 ml @ 200 mls/hr ONCE ONCE IV 10/05/19 22:00 10/05/19 22:29 DC 10/05/19 22:17 200 MLS/HR Vital Signs/I&O 10/05/19 10/05/19 10/05/19 10/05/19 20:42 20:42 22:12 23:00 Temp 37.2 Pulse 121 106 Resp 17 22 B/P (MAP) 126/74 (91) 104/47 Pulse Ox 92 93 94 93 O2 Delivery Nasal Cannula Nasal Cannula Nasal Cannula Nasal Cannula O2 Flow Rate 3.00 3.00 3.00 FiO2 2 10/05/19 10/06/19 23:12 00:00 Temp 36.6 Pulse 107 100 Resp 16 26 B/P (MAP) 109/56 (73) 94/62 (73) Pulse Ox 90 94 O2 Delivery Nasal Cannula Nasal Cannula O2 Flow Rate 3.00 3.00 10/06/19 00:00 Intake Total 1000 ml Balance 1000 ml Capillary Refill : Less Than 3 Seconds Blood Pressure Mean: 91 POS Progress Note : Progress Note Septic workup was pursued. Influenza screen was negative. Chest x-ray showed evidence of pneumonia versus pneumonitis. Patient does have chronic pulmonary markings on prior x-rays that make detection of acute pneumonia difficult. CRP was significantly elevated suggesting bacterial disease. Blood cultures and lactic acid were drawn. Initial therapy was started with Zosyn. Patient received a liter of IV fluid. He had a couple measurements of systolic blood pressures in the 80s after the first liter fluid. A second liter of fluid was administered. He remained normotensive after that. Patient did not technically meet septic criteria but he was admitted to the ICU because of concerns about his blood pressure and the potential for decompensation. Case was discussed with Dr. Cueto and Dr. Hightower. A DuoNeb treatment was administered in the ER. Diagnostic Imaging Diagonstic Imaging: Xray Plain Films/CT/US/NM/MRI: chest Comments Chest x-ray viewed by me and report reviewed. See report below: NAME: AMIRA [facility] REC#: [id number] PT STATUS: ADM Ian : 1955 PHYSICIAN: CONRADO WEBSTER MD ADMIT DATE: 10/05/19/[facility] Signed Date of Exam:10/05/19 CHEST PA/LAT (2 VIEW) EXAM: CHEST PA/LAT (2 VIEW) INDICATION: Cough. Dyspnea. COMPARISON: CT chest 07/27/2019. FINDINGS: Cardiomegaly with normal central pulmonary vascularity. Increasing interstitial and airspace opacities in the lung bases. No definite pleural effusion or pneumothorax. No acute osseous findings IMPRESSION: 1. Increasing interstitial and airspace opacities in the lung bases suspicious for pneumonitis. 2. Stable cardiomegaly. Dictated by: Dictated on workstation # [id number] Dict: 10/05/192143 Trans: 10/05/192210 [facility] [id number] Interpreted by: AMARILIS MCDONOUGH MD Electronically signed by: AMARILIS MCDONOUGH MD 10/05/192210 Departure Communication (Admissions) Time/Spoke to Admitting Phy: 22:25 Dr. Cueto Time/Spoke to Consulting Phy: 22:30 Dr. Hightower Impression Primary Impression: Bilateral pneumonia Qualified Codes: J18.1 - Lobar pneumonia, unspecified organism Additional Impressions: Hypotension Qualified Codes: I95.9 - Hypotension, unspecified COPD exacerbation Disposition: ADMITTED INPATIENT Condition: Improved Admissions Decision to Admit Reason: Admit from ER (General) Decision to Admit/Date: Oct 05, 2019 Time/Decision to Admit Time: 21:55 Departure-Patient Inst. [facility] Primary Care Physician MARIBEL GARY (Family) Primary Care Physician CONRADO WEBSTER MD Oct 05, 2019 22:27 POS
[2019-10-05] MEDS ORDERED: KCL 10 MEQ TAB (MICRO K) PO ONE (22:45)
[2019-10-05 23:12] VITALS: BP 109/56
[2019-10-05] MEDS ORDERED: AZITHROMYCIN 500 MG/NS 250 ML IVPB IV SCH ×2 (23:15)
[2019-10-05] MEDS ORDERED: RT-ALBUTEROL SULF 2.5 MG/3 ML PRE-MIX VIAL IH PRN ×2 (23:15→23:30)
[2019-10-05 23:21] LABS: BILIRUBIN,URINE NEGATIVE (NEGATIVE); CLARITY,URINE CLEAR; COLOR,URINE YELLOW; GLUCOSE, URINE (UA) 3+ (NEGATIVE); KETONES,URINE NEGATIVE (NEGATIVE); LEUKOCYTE ESTERASE ,URINE NEGATIVE (NEGATIVE); NITRITE,URINE NEGATIVE (NEGATIVE); PH,URINE 6.5 (5-9); PROTEIN,URINE NEGATIVE (NEGATIVE)
[2019-10-05 23:29] LABS: BACTERIA,URINE TRACE /HPF; RBC,URINE 0-2 /HPF; WBC,URINE 0-2 /HPF
[2019-10-05] MEDS ORDERED: FLUTICASONE NASAL SPRAY (FLONASE) 16 GM BTL NS PRN (23:30)
[2019-10-06] VITALS (14 sets, daily range): BP systolic 84–148; BP diastolic 48–80
[2019-10-06] MEDS: ACETAMINOPHEN 500 MG TAB (TYLENOL) PO PRN ×2 (00:07→13:44)
[2019-10-06] MEDS: NS IV 1000 ML 1,000 ML IV SCH ×3 (00:16→21:38)
[2019-10-06] MEDS: inSUlin ASPART (NovoLOG) 1 UNIT/0.01 ML (CHARGE PER UNIT) SQ SCH ×4 (00:41→18:34)
[2019-10-06] MEDS ORDERED: CATHETER FLUSH 10 ML SYR IV PRN (00:45)
[2019-10-06] MEDS ORDERED: PIPERACILLIN/TAZO 4.5 GM VIAL (ZOSYN) IV ONE (04:29)
[2019-10-06] MEDS ORDERED: NS (IVPB) 100 ML ONE (04:30)
[2019-10-06 04:39] LABS: BASOPHILS % (AUTO) 0 % (0-10); EOSINOPHILS # (AUTO) 0.1 10^3/uL (0.0-0.3); EOSINOPHILS % (AUTO) 2 % (0-10); HEMATOCRIT 36 % (40-54); LYMPHOCYTES # (AUTO) 0.8 X 10^3 (1.0-4.0); LYMPHOCYTES % (AUTO) 12 % (12-44); MEAN CORPUSCULAR HEMOGLOBIN 28 PG (25-34); MEAN CORPUSCULAR HGB CONC 30 G/DL (32-36); MEAN CORPUSCULAR VOLUME 91 FL (80-99); MEAN PLATELET VOLUME 10.8 FL (7.4-10.4); MONOCYTES # (AUTO) 0.6 X 10^3 (0.0-1.0); MONOCYTES % (AUTO) 8 % (0-12); NEUTROPHILS # (AUTO) 5.4 X 10^3 (1.8-7.8); NEUTROPHILS % (AUTO) 78 % (42-75); PLATELET COUNT 126 10^3/uL (130-400); RED CELL DISTRIBUTION WIDTH 17.2 % (10.0-14.5); WHITE BLOOD COUNT 6.9 10^3/uL (4.3-11.0)
[2019-10-06] MEDS: PIPERACILLIN/TAZOBACTAM (BULK) 4.5 GM in NS (IVPB) 100 ML IV SCH ×3 (04:47→21:38)
[2019-10-06 04:58] LABS: BUN/CREATININE RATIO 24; CALCIUM 8.1 MG/DL (8.5-10.1); CARBON DIOXIDE 23 MMOL/L (21-32); CHLORIDE 111 MMOL/L (98-107); CREATININE SERUM 0.76 MG/DL (0.60-1.30); GFR ESTIMATED > 60; GLUCOSE 124 MG/DL (70-105); MAGNESIUM 1.5 MG/DL (1.6-2.4); PHOSPHORUS 2.6 MG/DL (2.3-4.7); POTASSIUM 3.4 MMOL/L (3.6-5.0); SODIUM 142 MMOL/L (135-145)
[2019-10-06] MEDS ORDERED: inSUlin ASPART (NovoLOG) 1 UNIT/0.01 ML (CHARGE PER UNIT) SC SCH (06:00)
[2019-10-06] MEDS ORDERED: VANCOMYCIN 1500 MG/NS 500 ML IVPB IV ONE ×2 (06:30)
[2019-10-06] MEDS ORDERED: GLIMEPIRIDE 4 MG (AMARYL) TAB PO SCH (06:30)
--- NOTE | 2019-10-06 06:31 | Pulmonary Consultation ---
History of Present Illness History of Present Illness Date of Admission Allergies and Home Medications Allergies Coded Allergies: atorvastatin (Verified Allergy, Mild, 03/26/17) Patient states that his bones ached and he wasn't able to tolerate it. Home Medications Albuterol Sulfate 2.5 Mg/3 Ml Vial.neb, 2.5 MG IH Q4H PRN for SHORTNESS OF BREATH, (Reported) Allopurinol 300 Mg Tablet, 300 MG PO HS, (Reported) Apixaban 5 Mg Tablet, 5 MG PO BID, (Reported) Budesonide/Formoterol Fumarate 10.2 Gm Hfa.aer.ad, 2 PUFF IH DAILY, (Reported) Doxycycline Hyclate 100 Mg Tablet, 100 MG PO BID, (Reported) Fenofibrate Nanocrystallized 145 Mg Tablet, 145 MG PO HS, (Reported) Fluoxetine HCl 20 Mg Capsule, 40 MG PO DAILY, (Reported) TAKES 2 (20MG) CAPSULES Fluticasone Propionate 16 Gm [place].susp, 1 SPRAY NS BID PRN for CONGESTION, (Reported) Gabapentin 300 Mg Capsule, 300 MG PO HS, (Reported) Glimepiride 4 Mg Tablet, 4 MG PO DAILY, (Reported) Lisinopril/Hydrochlorothiazide 1 Each Tablet, 1 TAB PO HS, (Reported) Magnesium Oxide 400 Mg Tablet, 400 MG PO DAILY, (Reported) Metformin HCl 500 Mg Tablet, 500 MG PO BID, (Reported) Metoprolol Succinate 25 Mg Tab.er.24h, 25 MG PO HS, (Reported) Montelukast Sodium 10 Mg Tablet, 10 MG PO HS, (Reported) [place] 3 Polyunsat Fatty Acids 1,000 Mg Cap, 1,000 MG PO BID, (Reported) Omeprazole 20 Mg Capsule.dr, 20 MG PO DAILY, (Reported) Potassium Gluconate 99 Mg Tablet, 99 MG PO DAILY, (Reported) Rosuvastatin Calcium 10 Mg Tablet, 10 MG PO HS, (Reported) Umeclidinium [place] 62.5 Mcg Blst.w.dev, 1 PUFF IH DAILY, (Reported) Past Erccrhx-Kvqgjo-Inpjob Hx Patient Social History Alcohol Use: Denies Use Recreational Drug Use: No Smoking Status: Former Smoker Former Smoker, Quit: Nov 23, 1975 2nd Hand Smoke Exposure: No Recent Foreign Travel: No Contact w/Someone Who Travel: No Recent Infectious Disease Expo: No Recent Hopitalizations: No Physical Abuse: No Sexual Abuse: No Mistreated: No Fear: No Immunizations Up To Date Tetanus Booster (TDap): Unknown PED Vaccines UTD: No Date of Pneumonia Vaccine: Jul 28, 2012 Date of Influenza Vaccine: Aug 03, 2018 Seasonal Allergies Seasonal Allergies: Yes Past Medical History Surgeries: Yes (umb hernia) Abdominal, Appendectomy, Cardiac, Coronary Stent, Eye Surgery, Gallbladder, R enal Respiratory: Yes ("pigeon's disease"" URIBE'S LUNG" WITH FREQUENT PNEUMONIA; CPAP AT HS) Pneumonia, Chronic Bronchitis, Sleep Apnea, COPD Currently Using CPAP: Yes Cardiac: Yes Atrial Fibrillation, Coronary Artery Disease, High Cholesterol, Hypertension, Peripheral Vascular Neurological: No Reproductive Disorders: No Sexually Transmitted Disease: No HIV/AIDS: No Genitourinary: Yes Kidney Stones Gastrointestinal: Yes (UMBILICAL HERNIA REPAIR) Gastroesophageal Reflux Musculoskeletal: Yes (ch. right shoulder pain) Degenerate Disk Disease, Arthritis, Chronic Back Pain, Gout Endocrine: Yes Diabetes, Non-Insulin dep HEENT: Yes (EYE SURGERY CHILD) Loss of Vision: Denies Cancer: No Psychosocial: Yes Anxiety, Depression Integumentary: No Blood Disorders: No Adverse Reaction/Blood Tranf: No Family Medical History Reviewed Nursing Family Hx Arthritis 19 FATHER Respiratory disorder 19 FATHER 19 MOTHER Thyroid disease 19 MOTHER No Family History of: AIDS Abdominal aortic aneurysm Alcoholism Alzheimer's disease Asthma Cardiovascular disease Dementia Diabetes mellitus Drug abuse Hypertension Kidney disease Myocardial infarction Parkinson's disease Psychosocial problem Seizure disorder Lung Disease Sepsis Event Evaluation Height, Weight, BMI Height: 5'6.00" Weight: 179lbs. 8.0oz. 81.577016mn; 29.00 BMI Method:Stated Exam Exam Vital Signs Date Time Temp Pulse Resp B/P (MAP) Pulse Ox O2 Delivery O2 Flow Rate FiO2 10/06/19 06:00 85 16 90/51 (64) 99 Nasal Cannula 2.00 10/06/19 05:00 91 19 108/70 (83) 100 Nasal Cannula 2.00 10/06/19 04:47 Nasal Cannula 2.00 10/06/19 04:00 90 22 100 Nasal Cannula 3.00 10/06/19 04:00 93 Nasal Cannula 3.00 10/06/19 03:00 120/69 (86) 100 Nasal Cannula 3.00 10/06/19 02:49 37.2 121 92 10/06/19 02:00 93 27 88/61 (70) 100 Nasal Cannula 3.00 10/06/19 01:25 96 10/06/19 01:00 84/48 (60) 89 Nasal Cannula 3.00 10/06/19 00:00 100 26 94/62 (73) 94 Nasal Cannula 3.00 10/06/19 00:00 94 Nasal Cannula 3.00 10/06/19 00:00 36.7 10/05/19 23:12 36.6 107 16 109/56 (73) 90 Nasal Cannula 3.00 10/05/19 23:00 106 22 104/47 93 Nasal Cannula 3.00 10/05/19 22:30 96 Nasal Cannula 3.00 10/05/19 22:12 94 Nasal Cannula 2 10/05/19 20:42 93 Nasal Cannula 3.00 10/05/19 20:42 37.2 121 17 126/74 (91) 92 Nasal Cannula 3.00 I & O 10/06/19 07:00 Intake Total 2200 ml Output Total 200 ml Balance 2000 ml Height & Weight Height: 5'6.00" Weight: 179lbs. 8.0oz. 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
[2019-10-06] MEDS: CATHETER FLUSH 10 ML SYR IV SCH ×3 (06:54→21:39)
[2019-10-06] MEDS ORDERED: predniSONE 10 MG TAB PO SCH (07:00)
[2019-10-06] MEDS ORDERED: OMEGA 3 (FISH OIL) 1000 MG CAP PO SCH (07:00)
[2019-10-06] MEDS ORDERED: metFORMIN 500 MG (GLUCOPHAGE) TAB PO SCH (07:00)
--- NOTE | 2019-10-06 07:23 | NUR ---
PTD VANCOMYCIN LABS: SCR 0.76 WT 86KG PLAN:VANCOMYCIN 1,500MG IV GIVEN AT 0700 TODAY, WILL DOSE 15MG.KG ~ 1,250MG IV Q12H, NEXT DOSE DUE @ 1900. WE WILL CHECK A TROUGH LEVEL ON 10/07 @1800.
[2019-10-06] MEDS ORDERED: MAGNESIUM OXIDE (MAG-OX)400 MG TAB PO SCH (08:00)
[2019-10-06] MEDS ORDERED: VANCOMYCIN INJECTION 0.1 MG in NS (IVPB) 250 ML IV SCH (08:00)
[2019-10-06] MEDS ORDERED: RT-ADVAIR HFA 115/21 MCG PER PUFF IH SCH (08:00)
[2019-10-06] MEDS ORDERED: KCL 20 MEQ TAB (K-DUR) PO ONE (08:00)
[2019-10-06] MEDS: RT-ALBUTEROL/IPRATROPIUM 3 ML (DUONEB) VIAL IH SCH ×4 (08:43→21:30)
--- NOTE | 2019-10-06 08:55 | Diagnostic Imaging Report ---
INDICATION: Dyspnea. COMPARISON: 10/05/2019. FINDINGS: There is cardiomegaly. There is venous congestion. There is bilateral airspace disease, left greater than right. There are bilateral pleural effusions. There is no pneumothorax. The mediastinum is unremarkable. IMPRESSION: Diffuse bilateral airspace disease, left greater than right, with small bilateral pleural effusions. Cardiomegaly and some central pulmonary venous congestion. Dictated by: Dictated on workstation # [id number]
[2019-10-06] MEDS ORDERED: lisINopril 10 MG (PRINIVIL) TABLET PO SCH (09:00)
[2019-10-06] MEDS ORDERED: TOLTERODINE LA 4 MG (DETROL) CAP PO SCH (09:00)
[2019-10-06] MEDS ORDERED: HYDROCHLOROTHIAZIDE 12.5 MG (HCTZ) CAP PO SCH (09:00)
[2019-10-06] MEDS ORDERED: PANTOPRAZOLE 20 MG TABLET (PROTONIX) PO SCH (09:00)
[2019-10-06] MEDS ORDERED: ALLOPURINOL 300 MG (ZYLOPRIM) TAB PO SCH (09:00)
[2019-10-06] MEDS ORDERED: FLUoxetine HCL 20 MG (PROzac) CAP PO SCH (09:00)
[2019-10-06] MEDS ORDERED: GABAPENTIN 300 MG (NEURONTIN) CAP PO SCH (09:00)
[2019-10-06] MEDS ORDERED: ASPIRIN 81 MG CHEW (CHILDREN'S ASA) PO SCH (09:00)
[2019-10-06] MEDS: APIXABAN 5 MG (ELIQUIS) TABLET PO SCH ×2 (09:07→21:39)
[2019-10-06] MEDS: MAGNESIUM 1 GM/100 ML IVPB 100 ML IV SCH (09:14)
--- NOTE | 2019-10-06 09:32 | NUR ---
Received report from FRANTZ Brian at this time.
[2019-10-06] MEDS ORDERED: PRD10T PO (09:48)
[2019-10-06] MEDS ORDERED: TAMS0.4C98 PO (09:48)
[2019-10-06] MEDS ORDERED: MAGN400T29 PO (09:48)
[2019-10-06] MEDS ORDERED: INSU100I10 SC (09:48)
[2019-10-06] MEDS ORDERED: FERR325T18 PO (09:48)
[2019-10-06] MEDS ORDERED: METF500T8 PO (09:48)
[2019-10-06] MEDS ORDERED: EXEN10PE3 SC (09:48)
[2019-10-06] MEDS ORDERED: CYAN-41 PO (09:48)
[2019-10-06] MEDS ORDERED: ROSU20TA32 PO (09:48)
[2019-10-06] MEDS ORDERED: FENO145T37 PO (09:48)
[2019-10-06] MEDS ORDERED: ASPI-999 PO (09:48)
--- NOTE | 2019-10-06 10:05 | NUR ---
Patient arrived on floor at this time. I agree with previous RN's assessment, care assumed at this time.
[2019-10-06] MEDS ORDERED: TOLT4CAP13 PO (10:21)
[2019-10-06] MEDS ORDERED: DAPA5TAB PO (10:21)
[2019-10-06] MEDS ORDERED: FLUT1BLS12 INH (10:21)
--- NOTE | 2019-10-06 10:31 | NUR ---
SPOKE WITH THE PATIENT ABOUT HIS MEDICATIONS. HE HAS A DETAILED LIST WITH HIM AND I COMPARED IT WITH THE EXT MED HX. HE DOES RECEIVE SOME OF HIS MEDS FROM [facility] THAT ARE NOT SHOWN ON THE EXT MED HX, THEY ARE FOLLOWS: 09-28-19 ELIQUIS 5MG BID 09-28-19 FARXIGA 5MG DAILY 09-10-19 TOLTERODINE ER 4MG DAILY #30 HIS METOPROLOL WAS FILLED #180 FOR 90 DAYS HOWEVER HE STATES HE ONLY TAKES 1 DAILY. THIS WOULD EXPLAIN WHY IT HAS NOT BEEN FILLED SINCE 05-01-19 #180. HE STATES HE IS OUT OF SYMBICORT AT THIS TIME, HE CAN NOT AFFORD IT. [facility] DOES NOT HAVE IT ON FILE. HE STATES HE DOES NOT RECEIVE SAMPLES. I REMOVED IT FROM THE MED REC AT THIS TIME. HE IS PAST DUE FOR REFILL ON THE FOLLOWIN07-19-19 BYETTA 10MCG BID 05-01-19 ADVAIR 250/50 #1 04-28-19 LANTUS (HAD A NEW SCRIPT ON HAND BUT NOT PICKED UP, TAKES 30 UNITS DAILY) 12-07-18 FLONASE (ONLY USES PRN) 10-21-18 ALBUTEROL 0.083% NEBULIZER (ONLY USES PRN) HIS LIST HAS GABAPENTIN 300MG DAILY HOWEVER IT WAS FILLED BID, HE VERIFIED IT HAS BEEN INCREASED TO BID. HIS CRESTOR IS ON HIS LIST 10MG HOWEVER 20MG HAS BEEN FILLED RECENTLY ACCORDING TO THE EXT MED HX, HE STATES HE TAKES A WHOLE TABLET, HE DOES NOT CUT ANYTHING IN HALF. UPDATED MED REC WITH DOSE THAT WAS RECENTLY FILLED. OTC MEDICATIONS: ASPIRIN 81MG DAILY FISH OIL BID POTASSIUM 99MG DAILY VITAMIN B12 DAILY MAG OX 400MG DAILY
[2019-10-06] MEDS ORDERED: TAMSULOSIN 0.4 MG (FLOMAX) CAP PO SCH (18:00)
[2019-10-06] MEDS: VANCOMYCIN 1250 MG/NS 250 ML IVPB IV SCH ×2 (18:58)
[2019-10-06] MEDS ORDERED: MONTELUKAST 10 MG (SINGULAIR) TAB PO SCH (21:00)
[2019-10-06] MEDS ORDERED: ROSUVASTATIN 10 MG (CRESTOR) TABLET PO SCH (21:00)
[2019-10-06] MEDS ORDERED: FENOFIBRATE 134 MG (LOFIBRA) CAPSULE PO SCH (21:00)
--- NOTE | 2019-10-06 21:14 | History & Physical ---
HPI History of Present Illness: 63 yo M that presented to ER with worsening shortness of breath for the last week. Denies any sick contacts. No oxygen requirement at home. States that he has been using his inhaler more often. + brownish sputum. Denies any fever or chills. Decreased appetite for the last week. Denies missing any doses of medications. Source: patient, spouse Exam Limitations: no limitations Date seen by provider: Oct 06, 2019 Time Seen by Provider: 11:25 Attending Physician Alf Cueto MD PCP [facility] Consult Date of Admission Oct 05, 2019 at 22:40 Home Medications Home Medications Reviewed patient Home Medication Reconciliation performed by pharmacy medication reconciliations turbine technician and/or nursing. Patients Allergies have been reviewed. Allergies Coded Allergies: atorvastatin (Verified Allergy, Mild, 03/26/17) Patient states that his bones ached and he wasn't able to tolerate it. [id number]-Rldfmo Hx Patient Social History Living Status: Lives with spouse Alcohol Use: Denies Use Recreational Drug Use: No Smoking Status: Former Smoker 2nd Hand Smoke Exposure: No Recent Foreign Travel: No Contact w/other who traveled: No Recent Hopitalizations: No Recent Infectious Disease Expo: No Immunizations Up To Date Tetanus Booster (TDap): Unknown Date of Pneumonia Vaccine: Jul 28, 2012 Date of Influenza Vaccine: Jul 28, 2019 Past Medical History PMHx: Chronic interstitial lung disease - hypersensitivity pneumonitis HTN HLD DMII CAD s/p stenting x 2 2011, 2012 gout HILDA on c-pap GERD hx of A-fib w/ RVR ([id number] VASc score of 2) - on Eliquis COPD PSurgHx: Cholecystectomy Appendectomy Tonsillectomy umbilical hernia repair kidney stone removed eye surgery as a child Family Medical History Significant Family History: Lung Disease Family History: Arthritis 19 FATHER Respiratory disorder 19 FATHER 19 MOTHER Thyroid disease 19 MOTHER No Family History of: AIDS Abdominal aortic aneurysm Alcoholism Alzheimer's disease Asthma Cardiovascular disease Dementia Diabetes mellitus Drug abuse Hypertension Kidney disease Myocardial infarction Parkinson's disease Psychosocial problem Seizure disorder Review of Systems (CHC) Constitutional: malaise, weakness EENTM: nose congestion; No mouth swelling, No throat swelling Respiratory: cough, dyspnea on exertion; No orthopnea; short of breath Cardiovascular: no symptoms reported; No chest pain, No edema, No palpitations Gastrointestinal: no symptoms reported; No abdominal pain, No constipation, No diarrhea, No nausea, No vomiting Genitourinary: no symptoms reported; No dysuria, No frequency, No hematuria Musculoskeletal: no symptoms reported; No back pain, No joint pain, No muscle pain Skin: No lesions, No rash Psychiatric/Neurological: Weakness Reviewed Test Results Reviewed Test Results Lab Laboratory Tests Test 10/05/19 22:58 10/06/19 00:40 10/06/19 03:35 10/06/19 11:40 Range/Units Urine Color YELLOW Urine Clarity CLEAR Urine pH 6.5 5-9 Urine Specific [place] 1.010 L 1.016-1.022 Urine Protein NEGATIVE NEGATIVE Urine Glucose (UA) 3+ H NEGATIVE Urine Ketones NEGATIVE NEGATIVE Urine Nitrite NEGATIVE NEGATIVE Urine Bilirubin NEGATIVE NEGATIVE Urine Urobilinogen 1.0 < = 1.0 MG/DL Urine Leukocyte Esterase NEGATIVE NEGATIVE Urine RBC (Auto) TRACE-I NEGATIVE Urine RBC 0-2 /HPF Urine WBC 0-2 /HPF Urine Crystals NONE /LPF Urine Bacteria TRACE /HPF Urine Casts NONE /LPF Urine Mucus NEGATIVE /LPF Urine Culture Indicated CULTURE PENDING Glucometer 126 H 310 H 70-110 MG/DL White Blood Count 6.9 4.3-11.0 10^3/uL Red Blood Count 3.98 L 4.35-5.85 10^6/uL Hemoglobin 11.0 L 13.3-17.7 G/DL Hematocrit 36 L 40-54 % Mean Corpuscular Volume 91 80-99 FL Mean Corpuscular Hemoglobin 28 25-34 PG Mean Corpuscular Hemoglobin Concent 30 L 32-36 G/DL Red Cell Distribution Width 17.2 H 10.0-14.5 % Platelet Count 126 L 130-400 10^3/uL Mean Platelet Volume 10.8 H 7.4-10.4 FL Neutrophils (%) (Auto) 78 H 42-75 % Lymphocytes (%) (Auto) 12 12-44 % Monocytes (%) (Auto) 8 0-12 % Eosinophils (%) (Auto) 2 0-10 % Basophils (%) (Auto) 0 0-10 % Neutrophils # (Auto) 5.4 1.8-7.8 X 10^3 Lymphocytes # (Auto) 0.8 L 1.0-4.0 X 10^3 Monocytes # (Auto) 0.6 0.0-1.0 X 10^3 Eosinophils # (Auto) 0.1 0.0-0.3 10^3/uL Basophils # (Auto) 0.0 0.0-0.1 10^3/uL Sodium Level 142 135-145 MMOL/L Potassium Level 3.4 L 3.6-5.0 MMOL/L Chloride Level 111 H 98-107 MMOL/L Carbon Dioxide Level 23 21-32 MMOL/L Anion Gap 8 5-14 MMOL/L Blood Urea Nitrogen 18 7-18 MG/DL Creatinine 0.76 0.60-1.30 MG/DL Estimat Glomerular Filtration Rate > 60 BUN/Creatinine Ratio 24 Glucose Level 124 H 70-105 MG/DL Calcium Level 8.1 L 8.5-10.1 MG/DL Phosphorus Level 2.6 2.3-4.7 MG/DL Magnesium Level 1.5 L 1.6-2.4 MG/DL Test 10/06/19 18:29 Range/Units Glucometer 182 H 70-110 MG/DL Physical Exam-(CHC) Physical Exam Vital Signs VS - Last 72 Hours, by Label POS 10/05/19 10/05/19 10/05/19 10/05/19 20:42 20:42 22:12 22:30 Temp 37.2 Pulse 121 Resp 17 B/P (MAP) 126/74 (91) Pulse Ox 92 93 94 96 O2 Delivery Nasal Cannula Nasal Cannula Nasal Cannula Nasal Cannula O2 Flow Rate 3.00 3.00 3.00 FiO2 2 10/05/19 10/05/19 10/06/19 10/06/19 23:00 23:12 00:00 00:00 Temp 36.6 36.7 Pulse 106 107 Resp 22 16 B/P (MAP) 104/47 109/56 (73) Pulse Ox 93 90 94 O2 Delivery Nasal Cannula Nasal Cannula Nasal Cannula O2 Flow Rate 3.00 3.00 3.00 10/06/19 10/06/19 10/06/19 10/06/19 00:00 01:00 01:25 02:00 Pulse 100 96 93 Resp 26 27 B/P (MAP) 94/62 (73) 84/48 (60) 88/61 (70) Pulse Ox 94 89 100 O2 Delivery Nasal Cannula Nasal Cannula Nasal Cannula O2 Flow Rate 3.00 3.00 3.00 12/11/10/06/19 10/06/19 10/06/19 02:49 03:00 04:00 04:00 Temp 37.2 Pulse 121 90 Resp 22 B/P (MAP) 120/69 (86) Pulse Ox 100 93 100 O2 Delivery Nasal Cannula Nasal Cannula Nasal Cannula O2 Flow Rate 3.00 3.00 3.00 FiO2 92 10/06/19 10/06/19 10/06/19 10/06/19 04:47 05:00 06:00 07:00 Pulse 91 85 83 Resp 19 16 B/P (MAP) 108/70 (83) 90/51 (64) Pulse Ox 100 99 O2 Delivery Nasal Cannula Nasal Cannula Nasal Cannula O2 Flow Rate 2.00 2.00 2.00 10/06/19 10/06/19 10/06/19 10/06/19 08:00 08:00 08:45 10:05 Temp 35.2 Pulse 89 80 Resp 27 18 B/P (MAP) 105/60 (75) 124/73 (90) Pulse Ox 93 96 98 99 O2 Delivery Nasal Cannula Nasal Cannula Nasal Cannula Nasal Cannula O2 Flow Rate 3.00 2.00 4.00 3.00 10/06/19 10/06/19 10/06/19 10/06/19 11:20 12:09 14:51 15:45 Temp 35.6 36.4 Pulse 83 95 90 Resp 18 18 B/P (MAP) 117/65 (82) 110/67 (81) Pulse Ox 98 96 97 O2 Delivery Nasal Cannula Nasal Cannula Nasal Cannula O2 Flow Rate 3.00 3.00 3.00 10/06/19 10/06/19 16:04 19:45 Temp 36.5 Pulse 91 Resp 18 B/P (MAP) 115/59 (77) Pulse Ox 96 96 O2 Delivery Nasal Cannula Nasal Cannula O2 Flow Rate 3.00 3.00 Capillary Refill : Less Than 3 Seconds General Appearance: WD/WN, mild distress (with minimal activity) HEENT: PERRL/EOMI Neck: non-tender, full range of motion, supple Respiratory: chest non-tender, no accessory muscle use, wheezing Cardiovascular: normal peripheral pulses, regular rate, rhythm, no edema, no murmur Gastrointestinal: normal bowel sounds, non tender, soft, no organomegaly Back: normal inspection, no CVA tenderness, no vertebral tenderness Extremities: normal range of motion, non-tender, normal inspection, no pedal edema, no calf tenderness, normal capillary refill Neurologic/Psychiatric: pilot instructor II-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 nml as tested, no motor/sensory deficits, a lert, normal mood/affect, oriented x 3 Skin: normal color, warm/dry Lymphatic: no adenopathy Assessment/Plan Assessment/Plan Admission Status: Inpatient Order (span 2 midnights) Reason for Inpatient Admission: New oxygen requirement and low blood pressures requiring IVFs and IV antibiotics (1) Bilateral pneumonia Status: Acute Assessment & Plan: - Continue on Antibiotics, titrate oxygen as tolerated, MAT Protocol, Incentive spirometer Qualifiers: Qualified Codes: J18.1 - Lobar pneumonia, unspecified organism (2) COPD exacerbation Status: Acute Assessment & Plan: - antibiotics and steroids (3) Normocytic anemia Status: Chronic Assessment & Plan: - iron studies pending (4) Insulin dependent diabetes mellitus with complications Status: Chronic Assessment & Plan: - A1c pending (5) Atrial fibrillation Status: Chronic Assessment & Plan: - Patient on Eliquis Qualifiers: Qualified Codes: I48.0 - Paroxysmal atrial fibrillation (6) CAD (coronary artery disease) Status: Acute Qualifiers: Qualified Codes: I25.10 - Atherosclerotic heart disease of [place] coronary artery without angina pectoris (7) HTN (hypertension) Status: Chronic Assessment & Plan: - Holding BP meds due to normotensive/hypotension Qualifiers: Qualified Codes: I10 - Essential (primary) hypertension (8) Hypotension Status: Acute Qualifiers: Qualified Codes: I95.9 - Hypotension, unspecified (9) DVT prophylaxis Status: Acute Assessment & Plan: - Eliquis Clinical Quality Measures DVT/VTE Risk/Contraindication: Risk Factor Score Per Nursin RFS Level Per Nursing on Admit: 4+=Very High ALF CUETO MD Oct 06, 2019 21:13 POS
[2019-10-07] MEDS: inSUlin ASPART (NovoLOG) 1 UNIT/0.01 ML (CHARGE PER UNIT) SQ SCH ×4 (00:11→18:06)
[2019-10-07] MEDS ORDERED: ONDANSETRON 4 MG/2 ML (SDV) Z0FRAN ONE (02:33)
--- NOTE | 2019-10-07 02:44 | NUR ---
0230-WENT IN TO CHECK ON PT AND COMPLAINING OF NAUSEA, CHILLS AND HEADACHE AT THIS TIME. VITAL SIGNS T-37.0, HR-114,RESP-21,BP-127/83, O2-95% ON 3L, PAIN 10 OUT OF 10. 0235-SPOKE WITH DR. GOSS AT THIS TIME AND INFORMED HER OF ABOVE FINDINGS. TELEPHONE ORDERS RECEIVED FOR ZOFRAN IV 8MG Q4HRS PRN. WILL CARRY OUT ORDERS AND CONTINUE TO MONITOR PT.
[2019-10-07] MEDS ORDERED: ONDANSETRON 4 MG/2 ML (SDV) Z0FRAN IVP PRN (02:45)
[2019-10-07] MEDS: PIPERACILLIN/TAZOBACTAM (BULK) 4.5 GM in NS (IVPB) 100 ML IV SCH ×3 (02:57→20:18)
[2019-10-07 03:17] VITALS: BP 154/87
[2019-10-07] MEDS: ACETAMINOPHEN 500 MG TAB (TYLENOL) PO PRN (03:43)
--- NOTE | 2019-10-07 04:10 | NUR ---
0337- RECEIVED CALL FROM ICU ONION TOPPER THAT PTS HEART RATE IS IN 150-160'S AND APPEARS TO BE A-FIB. THIS RN CHECKED ON PT. PT COMPLAINING OF CHILLS, HEADACHE, WITH NO NAUSEA OR HEART PALPITATIONS. 0340-1GM TYLENOL GIVEN FOR HEADACHE. 0348- RECEIVED ANOTHER CALL FROM ICU THAT PT CURRENTLY IN A-FIB, HR 150-160'S. CHECKED ON PT AGAIN. BOAT RIDE OPERATOR DRAWING LABS AT THIS TIME. PT COMPLAINS OF NO HEART PALPITATIONS, ONLY CHILLS AND HEADACHE AT THIS TIME. 0355-VITAL SIGNS TAKEN, T-38.3, HR-112, BP-118/56, RESP-20, O2-96% ON 3L NC. 0410-SPOKE WITH DR. SAMUEL AND INFORMED HIM OF ABOVE FINDINGS. TELEPHONE ORDER RECEIVED FOR BLOOD CULTURES X3, UA CULTURE IF INDICATED, 1 LITER LR BOLUS OVER AN HOUR. WILL CARRY OUT ORDERS AND CONTINUE TO MONITOR PT.
[2019-10-07] MEDS ORDERED: LACTATED RINGERS 1,000 ML IV ONE ×2 (04:15)
[2019-10-07 04:24] LABS: BASOPHILS % (AUTO) 0 % (0-10); EOSINOPHILS # (AUTO) 0.3 10^3/uL (0.0-0.3); EOSINOPHILS % (AUTO) 4 % (0-10); HEMATOCRIT 39 % (40-54); LYMPHOCYTES # (AUTO) 0.7 X 10^3 (1.0-4.0); LYMPHOCYTES % (AUTO) 10 % (12-44); MEAN CORPUSCULAR HEMOGLOBIN 28 PG (25-34); MEAN CORPUSCULAR HGB CONC 31 G/DL (32-36); MEAN CORPUSCULAR VOLUME 92 FL (80-99); MEAN PLATELET VOLUME 10.2 FL (7.4-10.4); MONOCYTES # (AUTO) 0.5 X 10^3 (0.0-1.0); MONOCYTES % (AUTO) 7 % (0-12); NEUTROPHILS # (AUTO) 5.7 X 10^3 (1.8-7.8); NEUTROPHILS % (AUTO) 79 % (42-75); PLATELET COUNT 156 10^3/uL (130-400); RED CELL DISTRIBUTION WIDTH 17.1 % (10.0-14.5); WHITE BLOOD COUNT 7.3 10^3/uL (4.3-11.0)
[2019-10-07 04:48] LABS: BUN/CREATININE RATIO 14; CALCIUM 9.5 MG/DL (8.5-10.1); CARBON DIOXIDE 20 MMOL/L (21-32); CHLORIDE 108 MMOL/L (98-107); CREATININE SERUM 0.69 MG/DL (0.60-1.30); GFR ESTIMATED > 60; GLUCOSE 104 MG/DL (70-105); MAGNESIUM 1.5 MG/DL (1.6-2.4); PHOSPHORUS 1.5 MG/DL (2.3-4.7); POTASSIUM 4.1 MMOL/L (3.6-5.0); SODIUM 141 MMOL/L (135-145)
--- NOTE | 2019-10-07 04:54 | NUR ---
0445-TEMP DOWN TO 37.2 AT THIS TIME. PT STATES HE IS FEELING BETTER. 0452- DIRECTOR ADULT CALLED AGAIN. STATING PT HR UP IN 150-160'S AGAIN AND RATE APPEARS TO BE A-FLUTTER BUT WE WERE TALKING SHE CLAIMS PT BACK DOWN TO SINUS TACH HR 110-120'S.
[2019-10-07 04:57] LABS: BILIRUBIN,URINE NEGATIVE (NEGATIVE); CLARITY,URINE SL CLOUDY; COLOR,URINE YELLOW; GLUCOSE, URINE (UA) 2+ (NEGATIVE); KETONES,URINE TRACE (NEGATIVE); LEUKOCYTE ESTERASE ,URINE NEGATIVE (NEGATIVE); NITRITE,URINE NEGATIVE (NEGATIVE); PH,URINE 5.5 (5-9); PROTEIN,URINE 1+ (NEGATIVE)
[2019-10-07] MEDS: CATHETER FLUSH 10 ML SYR IV SCH ×3 (04:58→19:44)
[2019-10-07 05:02] LABS: BACTERIA,URINE TRACE /HPF; RBC,URINE RARE /HPF; SQUAMOUS EPITHELIAL CELL,UR 0-2 /HPF; URINE OTHER FEW SPERM /HPF; WBC,URINE RARE /HPF
--- NOTE | 2019-10-07 05:22 | NUR ---
0522-INFORMED DR. SAMUEL THAT PTS TEMP WENT DOWN TO 37.2, BP-117/65, O2-96% ON 3 LITERS NC, RESP-20. ALSO INFORMED HIM THAT ICU POSTDOCTORAL SCIENTIST HAS INFORMED ME THAT PTS HEART RATE KEEPS INCREASING TO 150-160'S WITH RHYTHM OF AFIB WHILE PT RESTING IN CHAIR COMFORTABLY. LET HIM KNOW THAT PT HAS A HISTORY OF AFIB AND IS ON ELIQUIS. ASKED HIM IF HE'D LIKE AN EKG PERFORMED. TELEPHONE ORDERS FOR EKG AND THAT HE WAS GOING TO ORDER METOPROLOL AND TO GIVE MORNING DOSE NOW.
--- NOTE | 2019-10-07 05:50 | NUR ---
0504-EKG PERFORMED RHYTHM SHOWED- ATRIAL FIBRILLATION, VENTRICULAR PREMATURE COMPLEX, RATE-124. 0555-INFORMED DR. SAMUEL OF ABOVE FINDINGS. TELEPHONE ORDERS RECEIVED TO TRANSFER PT TO ICU AND CONSULT CARDIOLOGY.
[2019-10-07] MEDS ORDERED: meTOprolol TARTRATE 25 MG (LOPRESSOR) TABLET ONE (05:57)
[2019-10-07] MEDS: meTOprolol TARTRATE 25 MG (LOPRESSOR) TABLET PO SCH ×2 (06:05→19:44)
--- NOTE | 2019-10-07 06:12 | NUR ---
0600-SPOKE WITH [place] [place] ATTORNEY TO GET A ICU BED. ICU ON [facility]ERS[facility]. RN TO TALK TO DR. SAMUEL AND LET ME KNOW THE PLAN. 0610-[place] ATTORNEY INFORMED ME, PER DR. SAMUEL TO LET METOPROLOL WORK AND WILL DECIDE ON WHETHER TO TRANSFER TO ICU FROM THERE. METOPROLOL GIVEN AT THIS TIME.
[2019-10-07] MEDS ORDERED: SODIUM PHOSPHATE INJ 30 MM in NS (IVPB) 250 ML IV ONE (06:15)
--- NOTE | 2019-10-07 06:30 | NUR ---
SPOKE TO DR. MCCORMICK AND INFORMED HIM OF THE CONSULT AND THAT PT HAS BEEN IN AND OUT OF AFIB SINCE 329 THIS AM. LET HIM KNOW EKG WAS PERFORMED AT 0530 THAT READ, ATRIAL FIBRILLATION WITH VENTRICULAR PREMATURE COMPLEX RATE 124 WITH NO HEART PALPITATIONS OR CHEST PAIN. ALSO INFORMED HIM THAT DR. SAMUEL RESTARTED PTS HOME METOPROLOL DOSE OF 25MG BID AND THAT PT IS ON ELIQUIS 5MG BID, BP-117/65 HR-110-120's. DR. MCCORMICK STATED PT IS STABLE FOR NOW, NO NEED TO TRANSFER PT TO ICU AT THIS TIME, IF HE KEEPS GOING INTO AFIB AFTER METOPROLOL GIVEN THEN LET DR. MCCORMICK KNOW.
[2019-10-07] MEDS: MAGNESIUM 1 GM/100 ML IVPB 100 ML IV SCH ×3 (07:01→08:03)
[2019-10-07] MEDS: RT-ALBUTEROL/IPRATROPIUM 3 ML (DUONEB) VIAL IH SCH ×3 (07:24→19:27)
[2019-10-07] MEDS: NS IV 1000 ML 1,000 ML IV SCH ×2 (07:55→21:58)
[2019-10-07 08:00] VITALS: BP 109/75
--- NOTE | 2019-10-07 08:07 | Diagnostic Imaging Report ---
INDICATION: Dyspnea. Comparison made with prior examination of 10/06/2019. FINDINGS: There is cardiomegaly. There are bibasilar infiltrates. Some venous congestion. No pneumothorax. Mediastinum is unremarkable. IMPRESSION: Bibasilar pulmonary infiltrates. Cardiomegaly and some central pulmonary venous congestion. Dictated by: Dictated on workstation # [id number]
--- NOTE | 2019-10-07 08:12 | Consultation-Cardiology ---
HPI-Cardiology Cardiology Consultation: Date of Consultation 10/07/19 Time Seen by a Provider: 09:45 Date of Admission 10-05-19 Attending Physician Alf Goss MD Admitting Physician [facility] Phys[facility] MORRIS MCMANUS HPI: Chief Complaint: Dyspnea Mr. Tapia is a 63 year old male admitted to 421 from the ED with c/o progressive dyspnea, vomiting, fever, chills and cough which started on Friday. He denies any c/o CP, palpitations, syncope, near syncope or LE swelling. He is currently sitting up in a recliner at the bedside. He reports SOB has improved somewhat. He reports his cough has been more productive this morning. Review of Systems-Cardiology Review of Systems Constitutional: As described under HPI Eyes: No vision change Ears/Nose/Throat: No epistaxis, No recent hearing loss Respiratory: As described under HPI Cardiovascular: As described under HPI Gastrointestinal: As described under HPI Genitourinary: No dysuria, No hematuria Skin: No rash on exposed areas, No ulcerations on exposed areas Psychiatric/Neurological: No anxiety, No depression, No seizure, No focal weakness Hematologic: No bleeding abnormalities XFQ-Bgchls-Htbzgs Hx Patient Social History Living Status: Lives with spouse Alcohol Use: Denies Use Recreational Drug Use: No Smoking Status: Former Smoker 2nd Hand Smoke Exposure: No Recent Foreign Travel: No Recent Infectious Disease Expo: No Hospitalization with Isolation: Denies Immunizations Up To Date Tetanus Booster (TDap): Unknown Date of Pneumonia Vaccine: Jul 28, 2012 Date of Influenza Vaccine: Jul 28, 2019 Past Medical History PMH As described under Assessment. Family Medical History Family Medical History: No reported family h/o CAD or SCD. Family History: Arthritis 19 FATHER Respiratory disorder 19 FATHER 19 MOTHER Thyroid disease 19 MOTHER No Family History of: AIDS Abdominal aortic aneurysm Alcoholism Alzheimer's disease Asthma Cardiovascular disease Dementia Diabetes mellitus Drug abuse Hypertension Kidney disease Myocardial infarction Parkinson's disease Psychosocial problem Seizure disorder Allergies and Home Medications Allergies Coded Allergies: atorvastatin (Verified Allergy, Mild, 03/26/17) Patient states that his bones ached and he wasn't able to tolerate it. Home Medications Albuterol Sulfate 2.5 Mg/3 Ml Vial.neb, 2.5 MG IH Q4H PRN for SHORTNESS OF BREATH, (Reported) Allopurinol 300 Mg Tablet, 300 MG PO BID, (Reported) Apixaban 5 Mg Tablet, 5 MG PO BID, (Reported) Aspirin 81 Mg Tab.chew, 81 MG PO HS, (Reported) Cyanocobalamin (Vitamin B-12) 1,000 Mcg Tablet, 1,000 MCG PO DAILY, (Reported) Dapagliflozin Propanediol 5 Mg Tablet, 5 MG PO DAILY, (Reported) Exenatide 10 Mcg/0.04 Ml Pen.injctr, 10 MCG SC BID, (Reported) LAST FILLED 07-19-19 Fenofibrate Nanocrystallized 145 Mg Tablet, 145 MG PO HS, (Reported) Ferrous Sulfate 325 Mg Tablet, 325 MG PO HS, (Reported) Fluoxetine HCl 20 Mg Capsule, 40 MG PO DAILY, (Reported) TAKES 2 (20MG) CAPSULES Fluticasone Propion/Salmeterol 1 Each Blst.w.dev, 1 PUFF INH BID, (Reported) LAST FILLED 05-01-19 Fluticasone Propionate 16 Gm Mather.susp, 2 SPRAYS NS BID PRN for CONGESTION, (Reported) Gabapentin 300 Mg Capsule, 300 MG PO BID, (Reported) Glimepiride 4 Mg Tablet, 4 MG PO DAILY, (Reported) Insulin Glargine,Hum.rec.anlog 100 Unit/1 Ml Insuln.pen, 30 UNITS SC DAILY, (Reported) LAST FILLED 04-28-19 Lisinopril/Hydrochlorothiazide 1 Each Tablet, 1 TAB PO DAILY, (Reported) Magnesium Oxide 400 Mg Tablet, 400 MG PO DAILY, (Reported) Metformin HCl 500 Mg Tab.er.24h, 500 MG PO BID, (Reported) Metoprolol Succinate 25 Mg Tab.er.24h, 25 MG PO HS, (Reported) Montelukast Sodium 10 Mg Tablet, 10 MG PO HS, (Reported) [place] 3 Polyunsat Fatty Acids 1,000 Mg Cap, 1,000 MG PO BID, (Reported) Omeprazole 20 Mg Capsule.dr, 20 MG PO DAILY, (Reported) Potassium Gluconate 99 Mg Tablet, 99 MG PO DAILY, (Reported) Prednisone 10 Mg Tab, 10 MG PO DAILY, (Reported) Rosuvastatin Calcium 20 Mg Tablet, 20 MG PO HS, (Reported) Tamsulosin HCl 0.4 Mg Cap, 0.4 MG PO DAILY, (Reported) Tolterodine Tartrate 4 Mg Cap.er.24h, 4 MG PO DAILY, (Reported) Patient Home Medication List Home Medication List Reviewed: Yes Physical Exam-Cardiology Physical Exam Vital Signs/I&O 10/10/19 10/10/19 10/10/19 10/10/19 21:00 21:15 21:20 22:00 Pulse 66 67 75 61 Resp 25 20 20 19 B/P (MAP) 124/65 (84) 125/66 (85) Pulse Ox 94 96 95 94 O2 Delivery NIV Bilevel NIV Bilevel NIV Bilevel O2 Flow Rate 35.00 30.00 30.00 30.00 10/10/19 10/11/19 10/11/19 10/11/19 23:00 00:00 00:00 00:00 Temp 36.0 Pulse 59 60 Resp 21 12 B/P (MAP) 115/63 (80) 127/68 (87) Pulse Ox 94 95 O2 Delivery NIV Bilevel NIV Bilevel NIV Bilevel O2 Flow Rate 30.00 30.00 FiO2 30 10/11/19 10/11/19 10/11/19 10/11/19 01:00 01:00 02:00 02:31 Pulse 53 53 54 55 Resp 26 B/P (MAP) 120/63 (82) 122/64 (83) Pulse Ox 95 96 94 O2 Delivery NIV Bilevel NIV Bilevel O2 Flow Rate 30.00 30.00 25.00 10/11/19 10/11/19 10/11/19 10/11/19 03:00 03:11 03:50 04:00 Pulse 59 67 59 Resp 18 15 27 B/P (MAP) 109/65 (80) 126/65 (85) Pulse Ox 93 92 96 O2 Delivery NIV Bilevel High Flow N/C High Flow N/C High Flow N/C O2 Flow Rate 30.00 5.00 5.00 5.00 10/11/19 10/11/19 10/11/19 10/11/19 05:00 05:34 06:00 07:33 Pulse 59 57 Resp 17 15 B/P (MAP) 129/66 (87) 125/113 (117) Pulse Ox 95 91 95 O2 Delivery High Flow N/C High Flow N/C High Flow N/C High Flow N/C O2 Flow Rate 5.00 3.00 3.00 3.00 10/11/19 00:00 Intake Total 1387.5 ml Output Total 1500 ml Balance -112.5 ml Capillary Refill : Less Than 3 Seconds Constitutional: AAO x 3, well-developed, well-nourished HEENT: PERRL, hearing is well preserved, oral hygience is good Neck: No carotid bruit; carotid pulses are 2 + bilaterally Respiratory: No accessory muscle use, No respiratory distress; chest expansion is symmetric, crackles (coarse bi-basilar), rhonchi (scattered) Gastrointestinal: No tender; soft, audible bowel sounds Extremities: other (mild bilat LE swelling) Neurologic/Psychiatric: grossly intact (moves all extremities) Skin: normal color, warm/dry; No rash on exposed areas, No ulcerations on exposed areas Lymphatic: no adenopathy Data Review Labs Laboratory Tests 10/10/19 11:56: Glucometer 331H 10/10/19 17:36: Glucometer 390H 10/10/19 23:59: Glucometer 332H 10/11/19 03:15: White Blood Count 6.0, Red Blood Count 4.10L, Hemoglobin 11.4L, Hematocrit 37L, Mean Corpuscular Volume 91, Mean Corpuscular Hemoglobin 28, Mean Corpuscular Hemoglobin Concent 31L, Red Cell Distribution Width 16.7H, Platelet Count 236, Mean Platelet Volume 10.2, Neutrophils (%) (Auto) 83H, Lymphocytes (%) (Auto) 10L, Monocytes (%) (Auto) 7, Eosinophils (%) (Auto) 0, Basophils (%) (Auto) 1, Neutrophils # (Auto) 5.0, Lymphocytes # (Auto) 0.6L, Monocytes # (Auto) 0.4, Eosinophils # (Auto) 0.0, Basophils # (Auto) 0.0, Sodium Level 140, Potassium Level 3.0L, Chloride Level 100, Carbon Dioxide Level 28, Anion Gap 12, Blood Urea Nitrogen 28H, Creatinine 0.82, Estimat Glomerular Filtration Rate > 60, BUN/Creatinine Ratio 34, Glucose Level 296H, Calcium Level 9.4, Phosphorus Level 1.4L, Magnesium Level 1.9 10/11/19 07:30: Blood Gas Puncture Site RT RAD, Blood Gas Patient Temperature 35.9, Arterial Blood pH 7.46H, Arterial Blood Partial Pressure CO2 48H, Arterial Blood Partial Pressure O2 72L, Arterial Blood HCO3 34H, Arterial Blood Total CO2 35.7H, Arterial Blood Oxygen Saturation 95, Arterial Blood Base Excess 9.6H, Hiro Test YES-POS, Blood Gas Ventilator Setting NO, Blood Gas Inspired Oxygen 3 L Microbiology 10/07/19 Blood Culture - Preliminary, Resulted No growth 10/05/19 Influenza Types A,B Antigen (VICENTE) - Final, Complete 10/05/19 Urine Culture - Final, Complete NO GROWTH Radiology NAME: AMIRA TAPIA [facility] REC#: [id number] PT STATUS: ADM IN : 1955 PHYSICIAN: ALF GOSS MD ADMIT DATE: 10/05/19 Signed Date of Exam:10/07/19 CHEST 1 VIEW, AP/PA ONLY INDICATION: Dyspnea. Comparison made with prior examination of 10/06/2019. FINDINGS: There is cardiomegaly. There are bibasilar infiltrates. Some venous congestion. No pneumothorax. Mediastinum is unremarkable. IMPRESSION: Bibasilar pulmonary infiltrates. Cardiomegaly and some central pulmonary venous congestion. Dictated by: Dictated on workstation # [id number] Dict: 10/07/19 0748 Trans: 10/07/19827 CVB [id number] Interpreted by: DAYTON LOPES MD Electronically signed by: DAYTON LOPES MD 10/07/19827 ECG Impression ECG Initial ECG Impression: Atrial Fibrillation A/P-Cardiology Assessment/Admission Diagnosis Pneumonia - management per medical services H/O PAF, documented during a hospitalization for pneumonia in December 2015 - currently a-fib, rate not well controlled Chronic stroke prophylaxis with apixaban CAD with h/o Resolute 2.5x12 to mid LCX in May 2012, and Resolute 2.5x12 to distal LCx in Oct 2012. MPI of January 19, 2019 showed no evidence of ischemia or infarction; LVEF was 94% Echo of December 2018 showed LVEF 60-65%, concentric hypertrophy. Mod MR. PASP approx 45-50mmHg Pulmonary HTN - followed by Dr. Hightower Abdominal aortic and peripheral angiogram of August 2016 did not indicate any significant abdominal aortic aneurysm. No significant renal artery stenosis. N o significant peripheral arterial disease involving the circulation of the lower limbs. 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
[2019-10-07] MEDS ORDERED: OMEPRAZOLE 20 MG (PriLOSEC) CAP NON-FORMULARY PO SCH (09:00)
[2019-10-07] MEDS ORDERED: NON-FORMULARY MEDICATION 1 EA EA (Allopurinol 300 MG) PO SCH (09:00)
[2019-10-07] MEDS: VANCOMYCIN 1250 MG/NS 250 ML IVPB IV SCH ×4 (09:05→19:15)
[2019-10-07] MEDS: FLUoxetine HCL 20 MG (PROzac) CAP PO SCH (09:14)
[2019-10-07] MEDS: GABAPENTIN 300 MG (NEURONTIN) CAP PO SCH ×2 (09:15→19:44)
[2019-10-07] MEDS: TAMSULOSIN 0.4 MG (FLOMAX) CAP PO SCH (09:15)
[2019-10-07] MEDS: ALLOPURINOL 300 MG (ZYLOPRIM) TAB PO SCH ×2 (09:15→19:44)
[2019-10-07] MEDS: PANTOPRAZOLE 20 MG TABLET (PROTONIX) PO SCH (09:15)
[2019-10-07] MEDS: APIXABAN 5 MG (ELIQUIS) TABLET PO SCH ×2 (09:15→19:43)
[2019-10-07] MEDS ORDERED: DILTIAZEM 180 MG (CARDIZEM CD) CAP PO ONE (10:15)
[2019-10-07 12:00] VITALS: BP 112/73
--- NOTE | 2019-10-07 13:04 | Consultation-Cardiology ---
HPI-Cardiology Cardiology Consultation: Date of Consultation 10/07/19 Time Seen by a Provider: 09:40 Date of Admission Attending Physician Laure Cueto MD [facility] BO MCCORMICK MD, MA, FACP, FACC, FSCAI, CCDS HPI: Chief Complaint: Reason for consultation: A Fib with RVR HPI Mr. Tapia is a 63 year old male admitted to [facility] from the ED with c/o pr ogressive dyspnea, vomiting, fever, chills and cough which started on Friday. He denies any c/o CP, palpitations, syncope, near syncope or LE swelling. He is currently sitting up in a recliner at the bedside. He reports SOB has improved somewhat. He reports his cough has been more productive this morning. Review of Systems-Cardiology Review of Systems Constitutional: As described under HPI Eyes: No vision change Ears/Nose/Throat: No epistaxis, No recent hearing loss Respiratory: As described under HPI Cardiovascular: As described under HPI Gastrointestinal: As described under HPI Genitourinary: No dysuria, No hematuria Skin: No rash on exposed areas, No ulcerations on exposed areas Psychiatric/Neurological: No anxiety, No depression, No seizure, No focal weakness Hematologic: No bleeding abnormalities YYG-Rgttsb-Ibxzrw Hx Patient Social History Living Status: Lives with spouse Alcohol Use: Denies Use Recreational Drug Use: No Smoking Status: Former Smoker 2nd Hand Smoke Exposure: No Recent Foreign Travel: No Recent Infectious Disease Expo: No Hospitalization with Isolation: Denies Immunizations Up To Date Tetanus Booster (TDap): Unknown Date of Pneumonia Vaccine: Jul 28, 2012 Date of Influenza Vaccine: Jul 28, 2019 Past Medical History PMH As described under Assessment. Family Medical History Family Medical History: No reported family h/o CAD or SCD. Family History: Arthritis 19 FATHER Respiratory disorder 19 FATHER 19 MOTHER Thyroid disease 19 MOTHER No Family History of: AIDS Abdominal aortic aneurysm Alcoholism Alzheimer's disease Asthma Cardiovascular disease Dementia Diabetes mellitus Drug abuse Hypertension Kidney disease Myocardial infarction Parkinson's disease Psychosocial problem Seizure disorder Allergies and Home Medications Allergies Coded Allergies: atorvastatin (Verified Allergy, Mild, 03/26/17) Patient states that his bones ached and he wasn't able to tolerate it. Home Medications Albuterol Sulfate 2.5 Mg/3 Ml Vial.neb, 2.5 MG IH Q4H PRN for SHORTNESS OF BREATH, (Reported) Allopurinol 300 Mg Tablet, 300 MG PO BID, (Reported) Apixaban 5 Mg Tablet, 5 MG PO BID, (Reported) Aspirin 81 Mg Tab.chew, 81 MG PO HS, (Reported) Cyanocobalamin (Vitamin B-12) 1,000 Mcg Tablet, 1,000 MCG PO DAILY, (Reported) Dapagliflozin Propanediol 5 Mg Tablet, 5 MG PO DAILY, (Reported) Exenatide 10 Mcg/0.04 Ml Pen.injctr, 10 MCG SC BID, (Reported) LAST FILLED 07-19-19 Fenofibrate Nanocrystallized 145 Mg Tablet, 145 MG PO HS, (Reported) Ferrous Sulfate 325 Mg Tablet, 325 MG PO HS, (Reported) Fluoxetine HCl 20 Mg Capsule, 40 MG PO DAILY, (Reported) TAKES 2 (20MG) CAPSULES Fluticasone Propion/Salmeterol 1 Each Blst.w.dev, 1 PUFF INH BID, (Reported) LAST FILLED 05-01-19 Fluticasone Propionate 16 Gm Nocatee.susp, 2 SPRAYS NS BID PRN for CONGESTION, (Reported) Gabapentin 300 Mg Capsule, 300 MG PO BID, (Reported) Glimepiride 4 Mg Tablet, 4 MG PO DAILY, (Reported) Insulin Glargine,Hum.rec.anlog 100 Unit/1 Ml Insuln.pen, 30 UNITS SC DAILY, (Reported) LAST FILLED 04-28-19 Lisinopril/Hydrochlorothiazide 1 Each Tablet, 1 TAB PO DAILY, (Reported) Magnesium Oxide 400 Mg Tablet, 400 MG PO DAILY, (Reported) Metformin HCl 500 Mg Tab.er.24h, 500 MG PO BID, (Reported) Metoprolol Succinate 25 Mg Tab.er.24h, 25 MG PO HS, (Reported) Montelukast Sodium 10 Mg Tablet, 10 MG PO HS, (Reported) [place] 3 Polyunsat Fatty Acids 1,000 Mg Cap, 1,000 MG PO BID, (Reported) Omeprazole 20 Mg Capsule.dr, 20 MG PO DAILY, (Reported) Potassium Gluconate 99 Mg Tablet, 99 MG PO DAILY, (Reported) Prednisone 10 Mg Tab, 10 MG PO DAILY, (Reported) Rosuvastatin Calcium 20 Mg Tablet, 20 MG PO HS, (Reported) Tamsulosin HCl 0.4 Mg Cap, 0.4 MG PO DAILY, (Reported) Tolterodine Tartrate 4 Mg Cap.er.24h, 4 MG PO DAILY, (Reported) Patient Home Medication List Home Medication List Reviewed: Yes Physical Exam-Cardiology Physical Exam Vital Signs/I&O 10/07/19 10/07/19 10/07/19 10/07/19 03:17 04:13 07:00 07:24 Temp 37.3 38.3 Pulse 100 128 Resp 21 B/P (MAP) 154/87 (109) Pulse Ox 97 79 O2 Delivery Nasal Cannula Room Air O2 Flow Rate 3.00 10/07/19 08:00 Temp 36.2 Pulse 147 Resp 18 B/P (MAP) 109/75 (86) Pulse Ox 95 O2 Delivery Nasal Cannula O2 Flow Rate 3.00 10/07/19 00:00 Intake Total 1480 ml Output Total 800 ml Balance 680 ml Capillary Refill : Less Than 3 Seconds Constitutional: AAO x 3, well-developed, well-nourished HEENT: PERRL, hearing is well preserved, oral hygience is good Neck: No carotid bruit; carotid pulses are 2 + bilaterally Respiratory: No accessory muscle use, No respiratory distress; chest expansion is symmetric, crackles (coarse bi-basilar), rhonchi (scattered) Gastrointestinal: No tender; soft, audible bowel sounds Extremities: other (mild bilat LE swelling) Neurologic/Psychiatric: grossly intact (moves all extremities) Skin: normal color, warm/dry; No rash on exposed areas, No ulcerations on exposed areas Lymphatic: no adenopathy Data Review Labs Laboratory Tests 10/06/19 18:29: Glucometer 182H 10/06/19 23:51: Glucometer 148H 10/07/19 04:06: White Blood Count 7.3, Red Blood Count 4.28L, Hemoglobin 12.0L, Hematocrit 39L, Mean Corpuscular Volume 92, Mean Corpuscular Hemoglobin 28, Mean Corpuscular Hemoglobin Concent 31L, Red Cell Distribution Width 17.1H, Platelet Count 156, Mean Platelet Volume 10.2, Neutrophils (%) (Auto) 79H, Lymphocytes (%) (Auto) 10L, Monocytes (%) (Auto) 7, Eosinophils (%) (Auto) 4, Basophils (%) (Auto) 0, Neutrophils # (Auto) 5.7, Lymphocytes # (Auto) 0.7L, Monocytes # (Auto) 0.5, Eosinophils # (Auto) 0.3, Basophils # (Auto) 0.0, Sodium Level 141, Potassium Level 4.1, Chloride Level 108H, Carbon Dioxide Level 20L, Anion Gap 13, Blood Urea Nitrogen 10, Creatinine 0.69, Estimat Glomerular Filtration Rate > 60, BUN/Creatinine Ratio 14, Glucose Level 104, Calcium Level 9.5, Phosphorus Level 1.5L, Magnesium Level 1.5L, Iron Level 13L, Total Iron Binding Capacity 272L, Unsaturated Iron Binding Capacity 259, Transferrin % Saturation 5L 10/07/19 04:35: Lactic Acid Level 1.00 10/07/19 04:42: Urine Color YELLOW, Urine Clarity SL CLOUDY, Urine pH 5.5, Urine Specific [place] 1.025H, Urine Protein 1+H, Urine Glucose (UA) 2+H, Urine Ketones TRACEH, Urine Nitrite NEGATIVE, Urine Bilirubin NEGATIVE, Urine Urobilinogen 1.0, Urine Leukocyte Esterase NEGATIVE, Urine RBC (Auto) 2+H, Urine RBC RARE, Urine WBC RARE, Urine Squamous Epithelial Cells 0-2, Urine Crystals NONE, Urine Bacteria TRACE, Urine Casts NONE, Urine Mucus NEGATIVE, Urine Other FEW SPERMH, Urine Culture Indicated NO 10/07/19 12:52: Glucometer 128H Microbiology 10/05/19 Blood Culture - Preliminary, Resulted Gram Positive Cocci 10/05/19 Influenza Types A,B Antigen (VICENTE) - Final, Complete 10/05/19 Urine Culture - Final, Complete NO GROWTH Laboratory Tests 10/05/19 20:48 10/06/19 03:35 10/07/19 04:06 A/P-Cardiology Assessment/Admission Diagnosis Pneumonia - management per Medical services H/O PAF, documented during a hospitalization for pneumonia in December 2015 - currently a-fib, rate not well controlled Chronic stroke prophylaxis with apixaban CAD with h/o Resolute 2.5x12 to mid LCX in May 2012, and Resolute 2.5x12 to distal LCx in Oct 2012. MPI of January 19, 2019 showed no evidence of ischemia or infarction; LVEF was 94% Echo of December 2018 showed LVEF 60-65%, concentric hypertrophy. Mod MR. PASP approx 45-50mmHg Pulmonary HTN - followed by Dr. Hightower Abdominal aortic and peripheral angiogram of August 2016 did not indicate any significant abdominal aortic aneurysm. No significant renal artery stenosis. No significant peripheral arterial disease involving the circulation of the lower limbs. 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
--- NOTE | 2019-10-07 14:58 | Physical Therapy Evaluation ---
PT Evaluation-General Medical Diagnosis Admission Date Oct 05, 2019 at 22:40 Medical Diagnosis: pneumonia, COPD exacerbation Onset Date: Oct 06, 2019 Therapy Diagnosis Therapy Diagnosis: impaired mobility, strength, endurance Height/Weight Height (Feet): 5 Height (Inches): 6.00 Weight (Pounds): 179 Weight (Ounces): 8.0 Precautions Precautions/Isolations: Standard Precautions Weight Bear Status Right Lower Extremity: Right Weight Bearing/Tolerated Left Lower Extremity: Left Weight Bearing/Tolerated Referral Physician: Rom Reason for Referral: Evaluation/Treatment Medical History Pertinent Medical History: Atrial Fib, Arthritis, CAD, COPD, DM, GERD, HTN, PVD Additional Medical History PMHx: Chronic interstitial lung disease - hypersensitivity pneumonitis HTN HLD DMII CAD s/p stenting x 2 2011, 2012 gout HILDA on c-pap GERD hx of A-fib w/ RVR ([id number] VASc score of 2) - on Eliquis COPD PSurgHx: Cholecystectomy Appendectomy Tonsillectomy umbilical hernia repair kidney stone removed eye surgery as a child Reviewed History: Yes Social History Home: Single Level Current Living Status: Spouse Entry Into Home: Stairs Without Railing PT Steps Into Home: 4 Prior Prior Level of Function SCALE: Activities may be completed with or without assistive devices. 3-Flmcfkkdin-vjhrqax completes the activity by him/herself with no assistance from a helper. 5-Set-up or Clean-up Assistance-helper sets up or cleans up; patient completes activity. [place] assists only prior to or following the activity. 4-Supervision or Touching Assistance-helper provides verbal cues and/or touc russel/steadying and/or contact guard assistance as patient completes activity. Assistance may be provided throughout the activity or intermittently. 3-Partial/Moderate Assistance-helper does LESS THAN HALF the effort. [place] lifts, holds or supports trunk or limbs, but provides less than half the effort. 2-Substantial/Maximal Assistance-helper does MORE THAN HALF the effort. [place] lifts or holds trunk or limbs and provides more than half the effort. 8-Mtxsosmer-pdzgrj does ALL the effort. Patient does none of the effort to complete the activity. Or, the assistance of 2 or more helpers is required for the patient to complete the activity. If activity was not attempted, code reason: 7-Patient Refused. 9-Not Applicable-not attempted and the patient did not perform the activity before the current illness, exacerbation or injury. 10-Not Attempted due to Environmental Limitations-(lack of equipment, weather restraints, etc.). 88-Not Attempted due to Medical Conditions or Safety Concerns. Bed Mobility: 6 Transfers (B,C,W/C): 6 Gait: 6 Stairs: 6 Indoor Mobility (Ambulation): Independent Stairs: Independent Patient states that he was using a 4-wheeled walker previously. PT Evaluation-Current Subjective Patient in recliner pre tx, agrees to PT, has a headache but no other pain. Pt/Family Goals to be independent at home Objective Patient Orientation: Person, Place, Situation Attachments: Oxygen, IV ROM/Strength ROM Lower Extremities WNL Strength Lower Extremities LLE (hip flexion 3+/5, knee flexion 4+/5, knee extension 4+/5, dorsiflexion 5/5), RLE (hip flexion 3+/5, knee flexion 4+/5, knee extension 4+/5, dorsiflexion 5/5) Sensory Hearing: Functional Sensation Right Lower Extremit: Intact Sensation Left Lower Extremity: Intact Transfers Roll Left to Right (QC): 10 Sit to Lying (QC): 10 Lying to Sitting/Side of Bed(Q: 10 Sit to Stand (QC): 4 Chair/Qqn-ci-Ikwyr Xfer(QC): 10 Car Transfer (QC): 10 SBA, cues for hand placement Gait Does the Patient Walk?: Yes Anticipated Mode of Locomotion: Walk Walk 10 feet (QC): 4 Walk 50 ft with 2 Turns(QC): 88 Walk 150 ft (QC): 88 Walking 10ft/uneven surface-QC: 88 Distance: 20' Gait Assistive Device: FWW Comments/Gait Description Patient limited on how far he can go due to lines. He ambulates a few feet forward and then back for a total of about 20' with SBA using a rolling walker. Ambulation is steady, no LOB or dizziness. Wheelchair Training Does the Pt Use a Wheelchair?: No Wheel 50 ft with 2 turns (QC): 10 Wheel 150 ft (QC): 10 Type of Wheelchair: Manual Stairs #of Steps: 10 1 Step (curb) (QC): 10 4 Steps (QC): 10 12 Steps (QC): 10 Balance Sitting Static: Normal Sitting Dynamic: Normal Standing Static: Good Standing Dynamic: Good Picking up an Object (QC): 10 Treatment BLE seated exercise x15 (AP, LAQ) Assessment/Needs Patient has impaired mobility, strength, endurance. Steady ambulation. Rehab Potential: Fair PT Long-Term Goals Long-Term Goals PT Long-Term Goals Time Frame: Oct 14, 2019 Roll Left & Right (QC): 6 Sit to Lying (QC): 6 Lying-Sitting on Side/Bed(QC): 6 Sit to Stand (QC): 6 Chair/Vyc-ib-Oaker Xfer(QC): 6 Toilet Transfer (QC): 6 Car Transfer (QC): 10 Does the Patient Walk: Yes Walk 10 feet (QC): 6 Walk 50ft with 2 Turns (QC): 6 Walk 150 ft (QC): 88 Walking 10ft on Uneven Surface: 88 1 Step (curb) (QC): 4 4 Steps (QC): 4 12 Steps (QC): 88 Picking up an Object (QC): 88 Does the Pt use WC or Scooter?: No Type: N/A Type: N/A PT Plan Problem List Problem List: Activity Tolerance, Functional Strength, Safety, Balance, Gait, Transfer, Bed Mobility, ROM Treatment/Plan Treatment Plan: Continue Plan of Care Treatment Plan: Bed Mobility, Education, Functional Activity [place], Functional Strength, Gait, Safety, Therapeutic Exercise, Transfers Treatment Duration: Oct 14, 2019 Frequency: 6 times per week Estimated Hrs Per Day: .25 hour per day Patient and/or Family Agrees t: Yes Safety Risks/Education Patient Education: Gait Training, Transfer Techniques, Correct Positioning, Safety Issues Teaching Recipient: Patient Teaching Methods: Demonstration, Discussion Response to Teaching: Reinforcement Needed Discharge Recommendations Plan Patient will perform bed mobility and transfer training, balance and endurance training, functional strengthening, stair training, gait training, and education, to improve functional mobility and independence at home. Therapy Discharge Recommendati: Other, See Comments (home with family) Time/GCodes Time In: 1440 Time Out: 1452 Total Billed Treatment Time: 12 Total Billed Treatment 1 visit CATHLEEN LOAZNO PT Oct 07, 2019 14:58 POS
--- NOTE | 2019-10-07 15:18 | NUR ---
Pastoral care visit.
[2019-10-07 15:59] VITALS: BP 133/71
[2019-10-07] MEDS ORDERED: TROUGH ORDER-PHARMACY XX ONE (18:00)
--- NOTE | 2019-10-07 19:12 | Progress Note ---
Subjective Subjective/Events-last exam Patient states that he feels some better. States that he has been walking around the room but has not walked long distances. Tolerating PO diet. Review of Systems Pulmonary: Dyspnea, Cough Cardiovascular: No: Chest Pain, Orthopnea Gastrointestinal: No: Nausea, Abdominal Pain, Diarrhea, Constipation Neurological: Weakness, Incoordination Focused Exam Lactate Level 10/05/19 20:48: Lactic Acid Level 1.65 10/07/19 04:35: Lactic Acid Level 1.00 Objective Exam Last Set of Vital Signs Vital Signs Date Time Temp Pulse Resp B/P (MAP) Pulse Ox O2 Delivery O2 Flow Rate FiO2 10/07/19 15:59 36.9 101 20 133/71 (91) 93 Nasal Cannula 3.00 10/06/19 02:49 92 Capillary Refill : Less Than 3 Seconds I&O Intake and Output 10/07/19 00:00 Intake Total 3015 ml Output Total 1700 ml Balance 1315 ml Intake Oral 2380 ml IV Total 635 ml Output Urine Total 1700 ml # Voids 2 # Bowel Movements 1 General: Alert, Oriented X3, Cooperative, No Acute Distress HEENT: Mucous Memb Moist/[place] Lungs: Normal Air Movement, Other (bilateral wheezing, normal work of breathing) Heart: Regular Rate, No Murmurs Abdomen: Normal Bowel Sounds, Soft, No Tenderness, No Masses Extremities: No Edema Neuro: Normal Speech, Sensation Intact, Cranial Nerves 3-12 NL Results/Procedures Lab Laboratory Tests 10/06/19 23:51: Glucometer 148H 10/07/19 04:06: White Blood Count 7.3, Red Blood Count 4.28L, Hemoglobin 12.0L, Hematocrit 39L, Mean Corpuscular Volume 92, Mean Corpuscular Hemoglobin 28, Mean Corpuscular Hemoglobin Concent 31L, Red Cell Distribution Width 17.1H, Platelet Count 156, Mean Platelet Volume 10.2, Neutrophils (%) (Auto) 79H, Lymphocytes (%) (Auto) 10L, Monocytes (%) (Auto) 7, Eosinophils (%) (Auto) 4, Basophils (%) (Auto) 0, Neutrophils # (Auto) 5.7, Lymphocytes # (Auto) 0.7L, Monocytes # (Auto) 0.5, Eosinophils # (Auto) 0.3, Basophils # (Auto) 0.0, Sodium Level 141, Potassium Level 4.1, Chloride Level 108H, Carbon Dioxide Level 20L, Anion Gap 13, Blood Urea Nitrogen 10, Creatinine 0.69, Estimat Glomerular Filtration Rate > 60, BUN/Creatinine Ratio 14, Glucose Level 104, Calcium Level 9.5, Phosphorus Level 1.5L, Magnesium Level 1.5L, Iron Level 13L, Total Iron Binding Capacity 272L, Unsaturated Iron Binding Capacity 259, Transferrin % Saturation 5L 10/07/19 04:35: Lactic Acid Level 1.00 10/07/19 04:42: Urine Color YELLOW, Urine Clarity SL CLOUDY, Urine pH 5.5, Urine Specific [place] 1.025H, Urine Protein 1+H, Urine Glucose (UA) 2+H, Urine Ketones TRACEH, Urine Nitrite NEGATIVE, Urine Bilirubin NEGATIVE, Urine Urobilinogen 1.0, Urine Leukocyte Esterase NEGATIVE, Urine RBC (Auto) 2+H, Urine RBC RARE, Urine WBC RARE, Urine Squamous Epithelial Cells 0-2, Urine Crystals NONE, Urine Bacteria TRACE, Urine Casts NONE, Urine Mucus NEGATIVE, Urine Other FEW SPERMH, Urine Culture Indicated NO 10/07/19 12:52: Glucometer 128H 10/07/19 13:46: Glucometer 194H 10/07/19 17:55: Glucometer 337H 10/07/19 18:10: Vancomycin Level Trough 16.9 Microbiology 10/05/19 Blood Culture - Preliminary, Resulted Gram Positive Cocci 10/05/19 Influenza Types A,B Antigen (VICENTE) - Final, Complete 10/05/19 Urine Culture - Final, Complete NO GROWTH Radiology NAME: [facility] REC#: [id number] PT STATUS: ADM IN : 1955 PHYSICIAN: ALF GOSS MD ADMIT DATE: 10/05/19/ Signed Date of Exam:10/07/19 CHEST 1 VIEW, AP/PA ONLY INDICATION: Dyspnea. Comparison made with prior examination of 10/06/2019. FINDINGS: There is cardiomegaly. There are bibasilar infiltrates. Some venous congestion. No pneumothorax. Mediastinum is unremarkable. IMPRESSION: Bibasilar pulmonary infiltrates. Cardiomegaly and some central pulmonary venous congestion. Dictated by: Dictated on workstation # [id number] Dict: 10/07/19 0748 Trans: 10/07/19827 CV [id number] Interpreted by: DAYTON LOPES MD Electronically signed by: DAYTON LOPES MD 10/07/19 0828 Assessment/Plan Assessment/Plan (1) Bilateral pneumonia Status: Acute Assessment & Plan: - Continue on Antibiotics, titrate oxygen as tolerated, MAT Protocol, Incentive spirometer 10/07: Currently at baseline oxygen but having shortness of breath with minimal exertion Qualifiers: Qualified Codes: J18.1 - Lobar pneumonia, unspecified organism (2) COPD exacerbation Status: Acute Assessment & Plan: - antibiotics and steroids (3) Normocytic anemia Status: Chronic Assessment & Plan: - iron studies pending 10/07: Iron def anemia with % Sat 5%, will start venefer (4) Insulin dependent diabetes mellitus with complications Status: Chronic Assessment & Plan: - A1c pending (5) Atrial fibrillation Status: Chronic Assessment & Plan: - Patient on Eliquis Qualifiers: Qualified Codes: I48.0 - Paroxysmal atrial fibrillation (6) CAD (coronary artery disease) Status: Acute Qualifiers: Qualified Codes: I25.10 - Atherosclerotic heart disease of [place] coronary artery without angina pectoris (7) HTN (hypertension) Status: Chronic Assessment & Plan: - Holding BP meds due to normotensive/hypotension 10/07: Blood pressure improved, continue to hold for normotension Qualifiers: Qualified Codes: I10 - Essential (primary) hypertension (8) DVT prophylaxis Status: Acute Assessment & Plan: - Eliquis Clinical Quality Measures DVT/VTE Risk/Contraindication: Risk Factor Score Per Nursin RFS Level Per Nursing on Admit: 4+=Very High ALF GOSS MD Oct 07, 2019 19:12 POS
[2019-10-07] MEDS: IRON SUCROSE 200 MG/10 ML (VENOFER) VIAL IV NR (19:42)
[2019-10-07] MEDS: FENOFIBRATE 134 MG (LOFIBRA) CAPSULE PO SCH (19:42)
[2019-10-07] MEDS: ROSUVASTATIN 20 MG (CRESTOR) TABLET PO SCH (19:43)
[2019-10-07] MEDS: ASPIRIN 81 MG CHEW (CHILDREN'S ASA) PO SCH (19:44)
[2019-10-07] MEDS: MONTELUKAST 10 MG (SINGULAIR) TAB PO SCH (19:44)
[2019-10-07 19:59] VITALS: BP 124/69
[2019-10-07] MEDS: BENZONATATE 100 MG (TESSALON) CAPSULE PO PRN (21:54)
[2019-10-07 23:45] VITALS: BP 106/57
[2019-10-08] VITALS (23 sets, daily range): BP systolic 100–135; BP diastolic 57–72
[2019-10-08] MEDS: inSUlin ASPART (NovoLOG) 1 UNIT/0.01 ML (CHARGE PER UNIT) SQ SCH ×4 (01:00→19:04)
[2019-10-08] MEDS: PIPERACILLIN/TAZOBACTAM (BULK) 4.5 GM in NS (IVPB) 100 ML IV SCH ×3 (04:10→20:07)
[2019-10-08] MEDS: BENZONATATE 100 MG (TESSALON) CAPSULE PO PRN (04:11)
[2019-10-08] MEDS: ACETAMINOPHEN 500 MG TAB (TYLENOL) PO PRN ×2 (04:11→16:50)
[2019-10-08 05:00] LABS: BASOPHILS % (AUTO) 0 % (0-10); EOSINOPHILS # (AUTO) 0.3 10^3/uL (0.0-0.3); EOSINOPHILS % (AUTO) 4 % (0-10); HEMATOCRIT 38 % (40-54); HEMOGLOBIN 11.2 G/DL (13.3-17.7); LYMPHOCYTES # (AUTO) 0.8 X 10^3 (1.0-4.0); LYMPHOCYTES % (AUTO) 12 % (12-44); MEAN CORPUSCULAR HEMOGLOBIN 27 PG (25-34); MEAN CORPUSCULAR HGB CONC 30 G/DL (32-36); MEAN CORPUSCULAR VOLUME 92 FL (80-99); MEAN PLATELET VOLUME 9.8 FL (7.4-10.4); MONOCYTES # (AUTO) 0.7 X 10^3 (0.0-1.0); MONOCYTES % (AUTO) 10 % (0-12); NEUTROPHILS # (AUTO) 5.4 X 10^3 (1.8-7.8); NEUTROPHILS % (AUTO) 75 % (42-75); PLATELET COUNT 169 10^3/uL (130-400); RED CELL DISTRIBUTION WIDTH 17.6 % (10.0-14.5); WHITE BLOOD COUNT 7.2 10^3/uL (4.3-11.0)
[2019-10-08 05:15] LABS: BUN/CREATININE RATIO 12; CALCIUM 8.9 MG/DL (8.5-10.1); CARBON DIOXIDE 22 MMOL/L (21-32); CHLORIDE 108 MMOL/L (98-107); CREATININE SERUM 0.59 MG/DL (0.60-1.30); GFR ESTIMATED > 60; GLUCOSE 79 MG/DL (70-105); MAGNESIUM 1.6 MG/DL (1.6-2.4); PHOSPHORUS 2.4 MG/DL (2.3-4.7); POTASSIUM 3.6 MMOL/L (3.6-5.0); SODIUM 139 MMOL/L (135-145)
[2019-10-08] MEDS: MAGNESIUM OXIDE (MAG-OX)400 MG TAB PO SCH (06:18)
[2019-10-08] MEDS: VANCOMYCIN 1250 MG/NS 250 ML IVPB IV SCH ×4 (06:18→19:08)
[2019-10-08] MEDS: CATHETER FLUSH 10 ML SYR IV SCH ×3 (06:21→20:18)
--- NOTE | 2019-10-08 07:24 | NUR ---
VANCOMYCIN DOSING TROUGH LEVEL 16.9 - CONTINUE CURRENT DOSE OF VANC 1250 MG Q12H
[2019-10-08] MEDS: RT-ALBUTEROL/IPRATROPIUM 3 ML (DUONEB) VIAL IH SCH ×5 (07:37→22:05)
[2019-10-08 07:41] LABS: ABG BASE EXCESS -2.6 MMOL/L (-2.5-2.5); ABG OXYGEN SATURATION 95 % (94-100); ABG PCO2 62 MMHG (35-45); ABG PO2 72 MMHG (79-93); ABG TCO2 26.4 MMOL/L (21.0-31.0)
[2019-10-08 07:45] LABS: ABG PH 7.21 (7.37-7.43); ALLENS TEST POSITIVE
[2019-10-08] MEDS ORDERED: RT-ALBUTEROL/IPRATROPIUM 3 ML (DUONEB) VIAL INH PRN (07:45)
[2019-10-08 07:46] LABS: INSPIRED O2 7 L; PATIENT TEMP 36.1; VENTILATOR NO
--- NOTE | 2019-10-08 07:46 | NUR ---
Dr. Cueto notified of critical PH 7.21
--- NOTE | 2019-10-08 08:11 | NUR ---
Pt transferred to ICU via bed with RT at bedside. Report given to Justo LANDRY
--- NOTE | 2019-10-08 09:37 | Diagnostic Imaging Report ---
Portable AP chest at 408 hours. INDICATION: Dyspnea. 2 views were obtained. FINDINGS: The previous exam of 10/07/2019 noted cardiomegaly and bibasilar alveolar/interstitial pulmonary infiltrates. On this exam, those findings are again evident. The density in the right lung base is perhaps somewhat greater. A vague area of increased density has also developed in the right upper lobe. I suspect that these changes are related to pneumonia/atelectasis and perhaps pulmonary edema. There may be some fluid in both lung bases as well. The mediastinum is not widened. The osseous structures are intact. IMPRESSION: The appearance of the chest has worsened since the prior study as the density in the right lung base has increased and a new vague area of increased density has developed in the right upper lobe. The appearance of the chest is most likely due to pneumonia, atelectasis and/or pulmonary edema. A follow-up exam would be recommended for continued evaluation. Dictated by: Dictated on workstation # [id number]
[2019-10-08] MEDS: DILTIAZEM 180 MG (CARDIZEM CD) CAP PO SCH (09:38)
[2019-10-08] MEDS: APIXABAN 5 MG (ELIQUIS) TABLET PO SCH ×2 (09:39→20:18)
[2019-10-08] MEDS: ALLOPURINOL 300 MG (ZYLOPRIM) TAB PO SCH ×2 (09:39→20:18)
[2019-10-08] MEDS: PANTOPRAZOLE 20 MG TABLET (PROTONIX) PO SCH (09:39)
[2019-10-08] MEDS: FLUoxetine HCL 20 MG (PROzac) CAP PO SCH (09:39)
[2019-10-08] MEDS: GABAPENTIN 300 MG (NEURONTIN) CAP PO SCH ×2 (09:39→20:18)
[2019-10-08] MEDS: TAMSULOSIN 0.4 MG (FLOMAX) CAP PO SCH (09:39)
[2019-10-08] MEDS: NS IV 1000 ML 1,000 ML IV SCH ×2 (09:45→23:32)
[2019-10-08] MEDS: meTOprolol TARTRATE 25 MG (LOPRESSOR) TABLET PO SCH ×2 (09:47→20:18)
[2019-10-08] MEDS: lisINopril 10 MG (PRINIVIL) TABLET PO SCH (09:48)
[2019-10-08 10:33] LABS: ABG BASE EXCESS -2.3 MMOL/L (-2.5-2.5); ABG OXYGEN SATURATION 99 % (94-100); ABG PCO2 58 MMHG (35-45); ABG PO2 149 MMHG (79-93); ABG TCO2 25.9 MMOL/L (21.0-31.0)
[2019-10-08 10:34] LABS: ABG PH 7.24 (7.37-7.43); ALLENS TEST POSITIVE; INSPIRED O2 60%; PATIENT TEMP 36.9; VENTILATOR NO
[2019-10-08] MEDS: HYDROCHLOROTHIAZIDE 12.5 MG (HCTZ) CAP PO SCH (10:45)
--- NOTE | 2019-10-08 11:48 | Physical Therapy Progress Note ---
Therapy Progress Note Patient transferred to ICU. PT will require new orders. JENNIFER LINTON PT Oct 08, 2019 11:48 POS
[2019-10-08 13:04] LABS: ABG BASE EXCESS -1.6 MMOL/L (-2.5-2.5); ABG OXYGEN SATURATION 96 % (94-100); ABG PCO2 52 MMHG (35-45); ABG PO2 72 MMHG (79-93)
[2019-10-08 13:08] LABS: ABG PH 7.29 (7.37-7.43); ALLENS TEST POSITIVE
[2019-10-08 13:09] LABS: INSPIRED O2 30%; PATIENT TEMP 36.2; VENTILATOR NO
--- NOTE | 2019-10-08 14:55 | NUR ---
"RD ASSESSMENT PMHx: HTN; HLD; T2DM; CAD; gout; GERD; afib; COPD PT INTERACTION: Pt was semi-awake and pleasant during nutrition assessment. Note pt was wearing BiPAP during assessment, and not caregiver present at beside. Pt states current appetite is pretty poor and has been for some time. Note pt avg PO intake of 70% x2d, per chart review. Pt states no recent issues with n/v, though caregiver states 1 episode of emesis on 10/05. Pt states no recent issues with c/d at this time. Note last BM was 10/07 (x2), and pt not currently on bowel regimen, per chart review. Pt states following a regular diet at home, and has no issues with chewing/swallowing food, though caregiver states pt is missing some teeth. Pt states no recent wt changes. Note 18# wt gain x9mon, per chart review. ABNORMAL NUTRITION-RELATED LAB VALUES LOW: Cl 108 HIGH: cr 0.59 Est. kcal needs: 3250-4112 kcal | 20-25 kcal/kg Est. Pro needs: 89-108 g Pro | 1.0-1.2 g Pro/kg PES STATEMENT: Inadequate oral intake (NI-2.1) related to loss of appetite | nausea | vomiting as evidenced by pt (caregiver) interview | avg PO intake 70% x2d INTERVENTION: Continue with current diet order of CHO 60g/m 3snack diet. Pt may benefit from nutrition supplementation if PO intake declines. Will continue to follow and reassess as pt needs and status change. MONITOR/EVALUATE: PO Intake; Plan of Care; Hydration Status; Weight Status; Lab Values Jorge Cabral, MS, RD, LD"
--- NOTE | 2019-10-08 19:34 | NUR ---
pt FSBS 51 at 1800, checked on PT, Pt A/O. Gave Pt orange juice. Pt blood sugar 145 at 1900.
--- NOTE | 2019-10-08 20:03 | Progress Note - Cardiology ---
Cardiology SOAP Progress Note Subjective: Still quite short of breath, necessitating BiPAP No cp or palp or syncope Gen malaise and weakness No swelling Objective: I&O/Vital Signs 10/08/19 10/08/19 10/08/19 10/08/19 08:06 08:15 08:45 09:00 Temp 37.0 Pulse 84 84 Resp 17 17 B/P (MAP) 100/60 (73) 107/67 (80) 105/65 (78) Pulse Ox 99 99 O2 Delivery High Flow N/C High Flow N/C High Flow N/C O2 Flow Rate 60.00 7.00 7.00 7.00 7.00 10/08/19 10/08/19 10/08/19 10/08/19 09:00 10:00 10:25 10:25 Pulse 87 Resp 21 B/P (MAP) 108/67 (81) Pulse Ox 98 O2 Delivery NIV Bilevel High Flow N/C NIV Bilevel O2 Flow Rate 7.00 40.00 40.00 10/08/19 10/08/19 10/08/19 10/08/19 10:35 11:00 12:00 12:00 Temp 36.4 B/P (MAP) 111/71 (84) 105/64 (78) O2 Delivery NIV Bilevel NIV Bilevel NIV Bilevel O2 Flow Rate 30.00 30.00 30.00 10/08/19 10/08/19 10/08/19 10/08/19 12:59 13:00 14:00 15:00 Pulse 90 92 92 89 Resp 18 14 7 B/P (MAP) 110/66 (81) 114/65 (81) 108/66 (80) Pulse Ox 91 92 90 O2 Delivery NIV Bilevel NIV Bilevel NIV Bilevel O2 Flow Rate 30.00 30.00 30.00 10/08/19 10/08/19 10/08/19 10/08/19 15:07 16:00 16:00 17:00 Temp 36.4 Pulse 90 95 Resp 20 16 B/P (MAP) 109/61 (77) 123/68 (86) Pulse Ox 91 93 O2 Delivery NIV Bilevel NIV Bilevel O2 Flow Rate 40.00 30.00 30.00 10/08/19 10/08/19 18:00 19:31 Pulse 90 97 Resp 10 23 B/P (MAP) 105/57 (73) Pulse Ox 94 92 O2 Delivery NIV Bilevel O2 Flow Rate 30.00 40.00 10/08/19 00:00 Intake Total 3380 ml Output Total 950 ml Balance 2430 ml Weight (Pounds): 179 Weight (Ounces): 8.0 Weight (Calculated Kilograms): 81.881798 Constitutional: AAO x 3, well-developed, well-nourished Respiratory: No accessory muscle use, No respiratory distress; chest expansion is symmetric, crackles (coarse bi-basilar), rhonchi (scattered) Gastrointestional: No tender; soft, audible bowel sounds Extremities: other (mild bilat LE swelling) Neurologic/Psychiatric: grossly intact (moves all extremities) Skin: normal color, warm/dry; No rash on exposed areas, No ulcerations on exposed areas Results/Procedures: Labs Laboratory Tests 10/08/19 00:50: Glucometer 214H 10/08/19 04:30: White Blood Count 7.2, Red Blood Count 4.11L, Hemoglobin 11.2L, Hematocrit 38L, Mean Corpuscular Volume 92, Mean Corpuscular Hemoglobin 27, Mean Corpuscular Hemoglobin Concent 30L, Red Cell Distribution Width 17.6H, Platelet Count 169, Mean Platelet Volume 9.8, Neutrophils (%) (Auto) 75, Lymphocytes (%) (Auto) 12, Monocytes (%) (Auto) 10, Eosinophils (%) (Auto) 4, Basophils (%) (Auto) 0, Neutrophils # (Auto) 5.4, Lymphocytes # (Auto) 0.8L, Monocytes # (Auto) 0.7, Eosinophils # (Auto) 0.3, Basophils # (Auto) 0.0, Sodium Level 139, Potassium Level 3.6, Chloride Level 108H, Carbon Dioxide Level 22, Anion Gap 9, Blood Urea Nitrogen 7, Creatinine 0.59L, Estimat Glomerular Filtration Rate > 60, BUN/C reatinine Ratio 12, Glucose Level 79, Calcium Level 8.9, Phosphorus Level 2.4, Magnesium Level 1.6 10/08/19 07:35: Blood Gas Puncture Site LEFT RADIAL, Blood Gas Patient Temperature 36.1, Arterial Blood pH 7.21*L, Arterial Blood Partial Pressure CO2 62H, Arterial Blood Partial Pressure O2 72L, Arterial Blood HCO3 24, Arterial Blood Total CO2 26.4, Arterial Blood Oxygen Saturation 95, Arterial Blood Base Excess -2.6L, Hiro Test POSITIVE, Blood Gas Ventilator Setting NO, Blood Gas Inspired Oxygen 7 L 10/08/19 10:22: Blood Gas Puncture Site RIGHT RADIAL, Blood Gas Patient Temperature 36.9, Arterial Blood pH 7.24*L, Arterial Blood Partial Pressure CO2 58H, Arterial Blood Partial Pressure O2 149H, Arterial Blood HCO3 24, Arterial Blood Total CO2 25.9, Arterial Blood Oxygen Saturation 99, Arterial Blood Base Excess -2.3, Hiro Test POSITIVE, Blood Gas Ventilator Setting NO, Blood Gas Inspired Oxygen 60% 10/08/19 12:55: Blood Gas Puncture Site RIGHT BRACHIAL, Blood Gas Patient Temperature 36.2, Arterial Blood pH 7.29*L, Arterial Blood Partial Pressure CO2 52H, Arterial Blood Partial Pressure O2 72L, Arterial Blood HCO3 24, Arterial Blood Total CO2 26.0, Arterial Blood Oxygen Saturation 96, Arterial Blood Base Excess -1.6, Hiro Test POSITIVE, Blood Gas Ventilator Setting NO, Blood Gas Inspired Oxygen 30%, Glucose Level 51*L 10/08/19 13:59: Glucometer 78 10/08/19 18:16: Glucometer 53*L 10/08/19 18:59: Glucometer 145H Microbiology 10/07/19 Blood Culture - Preliminary, Resulted No growth 10/05/19 Influenza Types A,B Antigen (VICENTE) - Final, Complete 10/05/19 Urine Culture - Final, Complete NO GROWTH A/P: Assessment: Pneumonia - management per Medical services H/O PAF, documented during a hospitalization for pneumonia in December 2015 - currently a-fib, rate not well controlled Chronic stroke prophylaxis with apixaban CAD with h/o Resolute 2.5x12 to mid LCX in May 2012, and Resolute 2.5x12 to distal LCx in Oct 2012. MPI of January 19, 2019 showed no evidence of ischemia or infarction; LVEF was 94% Echo of December 2018 showed LVEF 60-65%, concentric hypertrophy. Mod MR. PASP approx 45-50mmHg Pulmonary HTN - followed by Dr. Hightower Abdominal aortic and peripheral angiogram of August 2016 did not indicate any significant abdominal aortic aneurysm. No significant renal artery stenosis. No significant peripheral arterial disease involving the circulation of the lower limbs. 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 Still in ICU. Still short of breath and requiring BiPAP * Heart rate better controlled * Continue dilt for vent rate control * Continue bb * Continue OAC with Eliquis for stroke prophylaxis * Continue ASA d/t known h/o CAD * Replace electrolytes as needed * Monitor labs BO MCCORMICK MD FACP FAC CCDS Oct 08, 2019 20:03 POS
[2019-10-08] MEDS: IRON SUCROSE 200 MG/10 ML (VENOFER) VIAL IV NR (20:06)
[2019-10-08] MEDS: ROSUVASTATIN 20 MG (CRESTOR) TABLET PO SCH (20:17)
[2019-10-08] MEDS: ASPIRIN 81 MG CHEW (CHILDREN'S ASA) PO SCH (20:18)
[2019-10-08] MEDS: FENOFIBRATE 134 MG (LOFIBRA) CAPSULE PO SCH (20:18)
[2019-10-08] MEDS: MONTELUKAST 10 MG (SINGULAIR) TAB PO SCH (20:18)
--- NOTE | 2019-10-08 21:44 | Progress Note ---
Subjective Subjective/Events-last exam Patient transferred to ICU this AM. Early this AM started having increased work of breathing and Dr Hightower wanted him transferred up to ICU and placed on bipap. Patient has increased work of breathing. Review of Systems Pulmonary: Dyspnea, Cough Cardiovascular: Orthopnea; No: Chest Pain, Palpitations Gastrointestinal: No: Nausea, Vomiting, Abdominal Pain Neurological: Weakness, Incoordination Focused Exam Lactate Level 10/07/19 04:35: Lactic Acid Level 1.00 Objective Exam Last Set of Vital Signs Vital Signs Date Time Temp Pulse Resp B/P (MAP) Pulse Ox O2 Delivery O2 Flow Rate FiO2 10/08/19 19:31 97 23 92 40.00 10/08/19 18:00 105/57 (73) NIV Bilevel 10/08/19 16:00 36.4 10/06/19 02:49 92 Capillary Refill : Less Than 3 Seconds I&O Intake and Output 10/08/19 00:00 Intake Total 4252.5 ml Output Total 2015 ml Balance 2237.5 ml Intake Oral 2310 ml IV Total 1942.5 ml Output Urine Total 2015 ml # Bowel Movements 2 General: Alert, Oriented X3, Cooperative, Mild Distress Lungs: Other (diminished breath sounds, moderate increased work of breathing) Heart: Regular Rate, No Murmurs Abdomen: Normal Bowel Sounds, Soft, No Tenderness, No Masses Extremities: Other (1+ pitting edema bilaterally) Results/Procedures Lab Laboratory Tests 10/08/19 00:50: Glucometer 214H 10/08/19 04:30: White Blood Count 7.2, Red Blood Count 4.11L, Hemoglobin 11.2L, Hematocrit 38L, Mean Corpuscular Volume 92, Mean Corpuscular Hemoglobin 27, Mean Corpuscular Hemoglobin Concent 30L, Red Cell Distribution Width 17.6H, Platelet Count 169, Mean Platelet Volume 9.8, Neutrophils (%) (Auto) 75, Lymphocytes (%) (Auto) 12, Monocytes (%) (Auto) 10, Eosinophils (%) (Auto) 4, Basophils (%) (Auto) 0, Neut rophils # (Auto) 5.4, Lymphocytes # (Auto) 0.8L, Monocytes # (Auto) 0.7, Eosinophils # (Auto) 0.3, Basophils # (Auto) 0.0, Sodium Level 139, Potassium Level 3.6, Chloride Level 108H, Carbon Dioxide Level 22, Anion Gap 9, Blood Urea Nitrogen 7, Creatinine 0.59L, Estimat Glomerular Filtration Rate > 60, BUN/Creatinine Ratio 12, Glucose Level 79, Calcium Level 8.9, Phosphorus Level 2.4, Magnesium Level 1.6 10/08/19 07:35: Blood Gas Puncture Site LEFT RADIAL, Blood Gas Patient Temperature 36.1, Arterial Blood pH 7.21*L, Arterial Blood Partial Pressure CO2 62H, Arterial Blood Partial Pressure O2 72L, Arterial Blood HCO3 24, Arterial Blood Total CO2 26.4, Arterial Blood Oxygen Saturation 95, Arterial Blood Base Excess -2.6L, Hiro Test POSITIVE, Blood Gas Ventilator Setting NO, Blood Gas Inspired Oxygen 7 L 10/08/19 10:22: Blood Gas Puncture Site RIGHT RADIAL, Blood Gas Patient Temperature 36.9, Arterial Blood pH 7.24*L, Arterial Blood Partial Pressure CO2 58H, Arterial Blood Partial Pressure O2 149H, Arterial Blood HCO3 24, Arterial Blood Total CO2 25.9, Arterial Blood Oxygen Saturation 99, Arterial Blood Base Excess -2.3, Hiro Test POSITIVE, Blood Gas Ventilator Setting NO, Blood Gas Inspired Oxygen 60% 10/08/19 12:55: Blood Gas Puncture Site RIGHT BRACHIAL, Blood Gas Patient Temperature 36.2, Arterial Blood pH 7.29*L, Arterial Blood Partial Pressure CO2 52H, Arterial Blood Partial Pressure O2 72L, Arterial Blood HCO3 24, Arterial Blood Total CO2 26.0, Arterial Blood Oxygen Saturation 96, Arterial Blood Base Excess -1.6, Hiro Test POSITIVE, Blood Gas Ventilator Setting NO, Blood Gas Inspired Oxygen 30%, Glucose Level 51*L 10/08/19 13:59: Glucometer 78 10/08/19 18:16: Glucometer 53*L 10/08/19 18:59: Glucometer 145H Microbiology 10/07/19 Blood Culture - Preliminary, Resulted No growth 10/05/19 Influenza Types A,B Antigen (VICENTE) - Final, Complete 10/05/19 Urine Culture - Final, Complete NO GROWTH Radiology NAME: AMIRA FREEMAN [facility] REC#: [id number] PT STATUS: ADM IN : 1955 PHYSICIAN: ALF GOSS MD ADMIT DATE: 10/05/19 Signed Date of Exam:10/07/19 CHEST 1 VIEW, AP/PA ONLY INDICATION: Dyspnea. Comparison made with prior examination of 10/06/2019. FINDINGS: There is cardiomegaly. There are bibasilar infiltrates. Some venous congestion. No pneumothorax. Mediastinum is unremarkable. IMPRESSION: Bibasilar pulmonary infiltrates. Cardiomegaly and some central pulmonary venous congestion. Dictated by: Dictated on workstation # [id number] Dict: 10/07/19747 Trans: 10/07/19827 CVB [id number] Interpreted by: DAYTON LOPES MD Electronically signed by: DAYTON LOPES MD 10/07/1929 Assessment/Plan Assessment/Plan (1) Bilateral pneumonia Status: Acute Assessment & Plan: - Continue on Antibiotics, titrate oxygen as tolerated, MAT Protocol, Incentive spirometer 10/07: Currently at baseline oxygen but having shortness of breath with minimal exertion 10/08: Patient decompensated early this AM and was transferred to ICU, placed on bipap, Dr Hightower managing Qualifiers: Qualified Codes: J18.1 - Lobar pneumonia, unspecified organism (2) COPD exacerbation Status: Acute Assessment & Plan: - antibiotics and steroids (3) Normocytic anemia Status: Chronic Assessment & Plan: - iron studies pending 10/07: Iron def anemia with % Sat 5%, will start venefer (4) Insulin dependent diabetes mellitus with complications Status: Chronic Assessment & Plan: - A1c pending (5) Atrial fibrillation Status: Chronic Assessment & Plan: - Patient on Eliquis Qualifiers: Qualified Codes: I48.0 - Paroxysmal atrial fibrillation (6) CAD (coronary artery disease) Status: Acute Qualifiers: Qualified Codes: I25.10 - Atherosclerotic heart disease of [place] coronary artery without angina pectoris (7) HTN (hypertension) Status: Chronic Assessment & Plan: - Holding BP meds due to normotensive/hypotension 10/07: Blood pressure improved, continue to hold for normotension 10/08: meds held due to hypotension Qualifiers: Qualified Codes: I10 - Essential (primary) hypertension (8) DVT prophylaxis Status: Acute Assessment & Plan: - Eliquis Clinical Quality Measures DVT/VTE Risk/Contraindication: Risk Factor Score Per Nursin RFS Level Per Nursing on Admit: 4+=Very High ALF GOSS MD Oct 08, 2019 21:44 POS
[2019-10-09] VITALS (28 sets, daily range): BP systolic 97–139; BP diastolic 55–95
[2019-10-09] MEDS: inSUlin ASPART (NovoLOG) 1 UNIT/0.01 ML (CHARGE PER UNIT) SQ SCH ×5 (00:54→23:49)
[2019-10-09] MEDS: RT-ALBUTEROL/IPRATROPIUM 3 ML (DUONEB) VIAL IH SCH ×6 (01:55→20:59)
[2019-10-09 03:20] LABS: BASOPHILS % (AUTO) 0 % (0-10); EOSINOPHILS # (AUTO) 0.2 10^3/uL (0.0-0.3); EOSINOPHILS % (AUTO) 3 % (0-10); HEMATOCRIT 38 % (40-54); HEMOGLOBIN 11.1 G/DL (13.3-17.7); LYMPHOCYTES # (AUTO) 0.6 X 10^3 (1.0-4.0); LYMPHOCYTES % (AUTO) 9 % (12-44); MEAN CORPUSCULAR HEMOGLOBIN 28 PG (25-34); MEAN CORPUSCULAR HGB CONC 30 G/DL (32-36); MEAN CORPUSCULAR VOLUME 95 FL (80-99); MEAN PLATELET VOLUME 10.4 FL (7.4-10.4); MONOCYTES # (AUTO) 0.6 X 10^3 (0.0-1.0); MONOCYTES % (AUTO) 8 % (0-12); NEUTROPHILS # (AUTO) 5.8 X 10^3 (1.8-7.8); NEUTROPHILS % (AUTO) 80 % (42-75); PLATELET COUNT 182 10^3/uL (130-400); RED CELL DISTRIBUTION WIDTH 17.3 % (10.0-14.5); WHITE BLOOD COUNT 7.2 10^3/uL (4.3-11.0)
[2019-10-09 03:41] LABS: BUN/CREATININE RATIO 13; CALCIUM 8.8 MG/DL (8.5-10.1); CARBON DIOXIDE 18 MMOL/L (21-32); CHLORIDE 109 MMOL/L (98-107); CREATININE SERUM 0.61 MG/DL (0.60-1.30); GFR ESTIMATED > 60; GLUCOSE 136 MG/DL (70-105); MAGNESIUM 1.7 MG/DL (1.6-2.4); PHOSPHORUS 2.1 MG/DL (2.3-4.7); POTASSIUM 4.1 MMOL/L (3.6-5.0); SODIUM 140 MMOL/L (135-145)
[2019-10-09 03:54] LABS: ABG BASE EXCESS -1.9 MMOL/L (-2.5-2.5); ABG OXYGEN SATURATION 96 % (94-100); ABG PCO2 57 MMHG (35-45); ABG PO2 79 MMHG (79-93)
[2019-10-09] MEDS: MAGNESIUM 1 GM/100 ML IVPB 100 ML IV SCH ×3 (03:58→06:13)
[2019-10-09] MEDS: POTASSIUM CL 10MEQ/50ML IVPB 50 ML IV SCH ×5 (03:58→09:50)
[2019-10-09] MEDS: KCL 20 MEQ TAB (K-DUR) PO SCH (03:58)
[2019-10-09 03:59] LABS: ABG PH 7.25 (7.37-7.43); ALLENS TEST YES-POS
[2019-10-09 04:00] LABS: INSPIRED O2 45%; PATIENT TEMP 37.2; VENTILATOR NO
[2019-10-09] MEDS: PIPERACILLIN/TAZOBACTAM (BULK) 4.5 GM in NS (IVPB) 100 ML IV SCH ×3 (04:07→20:06)
--- NOTE | 2019-10-09 05:26 | Pulmonary Progress Note ---
Sepsis Event Evaluation Height, Weight, BMI Height: 5'6.00" Weight: 179lbs. 8.0oz. 81.585906ux; 29.00 BMI Method:Stated Focused Exam Lactate Level 10/07/19 04:35: Lactic Acid Level 1.00 Exam Exam Vital Signs Date Time Temp Pulse Resp B/P (MAP) Pulse Ox O2 Delivery O2 Flow Rate FiO2 10/09/19 04:00 92 NIV Bilevel 45 10/09/19 04:00 37.2 10/09/19 03:00 96 33 127/77 (94) 93 NIV Bilevel 30.00 10/09/19 02:00 85 19 124/70 (88) 93 NIV Bilevel 30.00 10/09/19 01:53 86 27 90 45.00 10/09/19 01:00 89 10/09/19 01:00 78 15 112/69 (83) 92 NIV Bilevel 30.00 10/09/19 01:00 78 15 112/69 (83) 92 NIV Bilevel 30.00 10/09/19 00:00 80 22 107/70 (82) 93 NIV Bilevel 30.00 10/09/19 00:00 91 NIV Bilevel 40 10/09/19 00:00 37.0 10/08/19 23:00 92 20 120/68 (85) 91 NIV Bilevel 30.00 10/08/19 22:05 89 23 93 40.00 10/08/19 22:00 90 10 117/68 (84) 94 NIV Bilevel 30.00 10/08/19 21:00 103 20 110/63 (79) 93 NIV Bilevel 30.00 10/08/19 21:00 92 NIV Bilevel 40 10/08/19 20:00 97 20 117/66 (83) 93 NIV Bilevel 30.00 10/08/19 20:00 37.3 10/08/19 19:31 97 23 92 40.00 10/08/19 19:00 103 10/08/19 19:00 103 17 110/63 (79) 93 NIV Bilevel 30.00 10/08/19 18:00 90 10 105/57 (73) 94 NIV Bilevel 30.00 10/08/19 17:00 95 16 123/68 (86) 93 NIV Bilevel 30.00 10/08/19 16:00 109/61 (77) NIV Bilevel 30.00 10/08/19 16:00 36.4 10/08/19 15:07 90 20 91 40.00 10/08/19 15:00 89 7 108/66 (80) 90 NIV Bilevel 30.00 10/08/19 14:00 92 14 114/65 (81) 92 NIV Bilevel 30.00 10/08/19 13:00 92 18 110/66 (81) 91 NIV Bilevel 30.00 10/08/19 12:59 90 10/08/19 12:00 36.4 10/08/19 12:00 105/64 (78) NIV Bilevel 30.00 10/08/19 11:00 111/71 (84) NIV Bilevel 30.00 10/08/19 10:35 NIV Bilevel 30.00 10/08/19 10:25 NIV Bilevel 40.00 10/08/19 10:25 87 21 98 40.00 10/08/19 10:00 108/67 (81) High Flow N/C 7.00 10/08/19 09:00 NIV Bilevel 10/08/19 09:00 105/65 (78) High Flow N/C 7.00 10/08/19 08:45 37.0 84 17 107/67 (80) 99 High Flow N/C 7.00 7.00 10/08/19 08:15 100/60 (73) High Flow N/C 7.00 10/08/19 08:06 84 17 99 60.00 10/08/19 07:37 90 High Flow N/C 7.00 10/08/19 06:43 86 I & O 10/09/19 07:00 Intake Total 1640 ml Output Total 900 ml Balance 740 ml Height & Weight Height: 5'6.00" Weight: 179lbs. 8.0oz. 81.055393zo; 29.00 BMI Method:Stated General Appearance: No Apparent Distress, WD/WN HEENT: PERRL/EOMI, Normal ENT Inspection Neck: Normal Inspection Respiratory: No Accessory Muscle Use, No Respiratory Distress, Crackles (bibasal or crackles, left greater than right), Wheezing Cardiovascular: No Murmur, Tachycardia, Other (mild lower extremity pitting edema) Capillary Refill: Less Than 3 Seconds Gastrointestinal: normal bowel sounds, non tender, soft, no organomegaly Extremity: Normal Inspection, Non Tender, Swelling (and mild lower extremity pitting edema) Neurologic/Psychiatric: Alert, Oriented x3, No Motor/Sensory Deficits, Normal Mood/Affect, 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
[2019-10-09] MEDS ORDERED: FUROSEMIDE 40 MG/4 ML INJ (LASIX) IVP ONE (05:30)
[2019-10-09] MEDS ORDERED: SODIUM PHOSPHATE INJ 30 MM in NS (IVPB) 250 ML IV ONE (05:30)
[2019-10-09] MEDS ORDERED: methylPREDNISolone 125 MG (Solu-MEDROL) VIAL IVP ONE (05:30)
[2019-10-09] MEDS: CATHETER FLUSH 10 ML SYR IV SCH ×3 (06:37→20:07)
[2019-10-09] MEDS: MAGNESIUM OXIDE (MAG-OX)400 MG TAB PO SCH ×2 (07:13→07:49)
[2019-10-09] MEDS: VANCOMYCIN 1250 MG/NS 250 ML IVPB IV SCH ×4 (07:13→18:14)
[2019-10-09 08:00] LABS: ABG BASE EXCESS -1.1 MMOL/L (-2.5-2.5); ABG OXYGEN SATURATION 95 % (94-100); ABG PCO2 53 MMHG (35-45); ABG PO2 72 MMHG (79-93)
[2019-10-09 08:04] LABS: ABG PH 7.29 (7.37-7.43); ALLENS TEST YES-POS; INSPIRED O2 35%; PATIENT TEMP 37.7; VENTILATOR NO
--- NOTE | 2019-10-09 09:25 | Progress Note - Cardiology ---
Cardiology SOAP Progress Note Subjective: Persistent shortness of breath No cp or palp or syncope Gen weakness and malaise Objective: I&O/Vital Signs 10/08/19 10/08/19 10/08/19 10/09/19 22:00 22:05 23:00 00:00 Temp 37.0 Pulse 90 89 92 Resp 10 23 20 B/P (MAP) 117/68 (84) 120/68 (85) Pulse Ox 94 93 91 O2 Delivery NIV Bilevel NIV Bilevel O2 Flow Rate 30.00 40.00 30.00 10/09/19 10/09/19 10/09/19 10/09/19 00:00 00:00 01:00 01:00 Pulse 80 78 78 Resp 22 15 15 B/P (MAP) 107/70 (82) 112/69 (83) 112/69 (83) Pulse Ox 91 93 92 92 O2 Delivery NIV Bilevel NIV Bilevel NIV Bilevel NIV Bilevel O2 Flow Rate 30.00 30.00 30.00 FiO2 40 10/09/19 10/09/19 10/09/19 10/09/19 01:00 01:53 02:00 03:00 Pulse 89 86 85 96 Resp 27 19 33 B/P (MAP) 124/70 (88) 127/77 (94) Pulse Ox 90 93 93 O2 Delivery NIV Bilevel NIV Bilevel O2 Flow Rate 45.00 30.00 30.00 10/09/19 10/09/19 10/09/19 10/09/19 04:00 04:00 04:00 05:00 Temp 37.2 Pulse 89 89 Resp 20 21 B/P (MAP) 118/67 (84) 121/67 (85) Pulse Ox 93 92 94 O2 Delivery NIV Bilevel NIV Bilevel NIV Bilevel O2 Flow Rate 30.00 30.00 FiO2 45 10/09/19 10/09/19 10/09/19 10/09/19 06:00 07:00 07:00 07:20 Pulse 89 100 91 91 Resp 20 12 26 B/P (MAP) 118/63 (81) 134/76 (95) Pulse Ox 91 93 93 O2 Delivery NIV Bilevel NIV Bilevel O2 Flow Rate 30.00 30.00 35.00 10/09/19 10/09/19 08:00 09:00 Pulse 92 88 Resp 7 19 B/P (MAP) 130/80 (97) 123/76 (92) Pulse Ox 92 94 O2 Delivery NIV Bilevel NIV Bilevel O2 Flow Rate 30.00 30.00 10/09/19 00:00 Intake Total 1640 ml Output Total 550 ml Balance 1090 ml Weight (Pounds): 179 Weight (Ounces): 8.0 Weight (Calculated Kilograms): 81.154540 Constitutional: AAO x 3, well-developed, well-nourished Respiratory: No accessory muscle use, No respiratory distress; chest expansion is symmetric, crackles (coarse bi-basilar), rhonchi (scattered), other (on Bi PAP) Gastrointestional: No tender; soft, audible bowel sounds Extremities: No significant edema Neurologic/Psychiatric: grossly intact (moves all extremities) Skin: normal color, warm/dry; No rash on exposed areas, No ulcerations on exposed areas Results/Procedures: Labs Laboratory Tests 10/08/19 10:22: Blood Gas Puncture Site RIGHT RADIAL, Blood Gas Patient Temperature 36.9, Arterial Blood pH 7.24*L, Arterial Blood Partial Pressure CO2 58H, Arterial Blood Partial Pressure O2 149H, Arterial Blood HCO3 24, Arterial Blood Total CO2 25.9, Arterial Blood Oxygen Saturation 99, Arterial Blood Base Excess -2.3, Hiro Test POSITIVE, Blood Gas Ventilator Setting NO, Blood Gas Inspired Oxygen 60% 10/08/19 12:55: Blood Gas Puncture Site RIGHT BRACHIAL, Blood Gas Patient Temperature 36.2, Arterial Blood pH 7.29*L, Arterial Blood Partial Pressure CO2 52H, Arterial Blood Partial Pressure O2 72L, Arterial Blood HCO3 24, Arterial Blood Total CO2 26.0, Arterial Blood Oxygen Saturation 96, Arterial Blood Base Excess -1.6, Hiro Test POSITIVE, Blood Gas Ventilator Setting NO, Blood Gas Inspired Oxygen 30%, Glucose Level 51*L 10/08/19 13:59: Glucometer 78 10/08/19 18:16: Glucometer 53*L 10/08/19 18:59: Glucometer 145H 10/09/19 00:50: Glucometer 234H 10/09/19 02:50: White Blood Count 7.2, Red Blood Count 3.97L, Hemoglobin 11.1L, Hematocrit 38L, Mean Corpuscular Volume 95, Mean Corpuscular Hemoglobin 28, Mean Corpuscular Hemoglobin Concent 30L, Red Cell Distribution Width 17.3H, Platelet Count 182, Mean Platelet Volume 10.4, Neutrophils (%) (Auto) 80H, Lymphocytes (%) (Auto) 9L , Monocytes (%) (Auto) 8, Eosinophils (%) (Auto) 3, Basophils (%) (Auto) 0, Neutrophils # (Auto) 5.8, Lymphocytes # (Auto) 0.6L, Monocytes # (Auto) 0.6, Eosinophils # (Auto) 0.2, Basophils # (Auto) 0.0, Sodium Level 140, Potassium Level 4.1, Chloride Level 109H, Carbon Dioxide Level 18L, Anion Gap 13, Blood Urea Nitrogen 8, Creatinine 0.61, Estimat Glomerular Filtration Rate > 60, BUN/Creatinine Ratio 13, Glucose Level 136H, Calcium Level 8.8, Phosphorus Level 2.1L, Magnesium Level 1.7, B-Type Natriuretic Peptide 129.2H 10/09/19 03:40: Blood Gas Puncture Site RIGHT RADIAL, Blood Gas Patient Temperature 37.2, Arterial Blood pH 7.25*L, Arterial Blood Partial Pressure CO2 57H, Arterial Blood Partial Pressure O2 79, Arterial Blood HCO3 24, Arterial Blood Total CO2 26.0, Arterial Blood Oxygen Saturation 96, Arterial Blood Base Excess -1.9, Hiro Test YES-POS, Blood Gas Ventilator Setting NO, Blood Gas Inspired Oxygen 45% 10/09/19 07:50: Blood Gas Puncture Site R RADIAL, Blood Gas Patient Temperature 37.7, Arterial Blood pH 7.29*L, Arterial Blood Partial Pressure CO2 53H, Arterial Blood Partial Pressure O2 72L, Arterial Blood HCO3 25, Arterial Blood Total CO2 26.0, Arterial Blood Oxygen Saturation 95, Arterial Blood Base Excess -1.1, Hiro Test YES-POS, Blood Gas Ventilator Setting NO, Blood Gas Inspired Oxygen 35% Microbiology 10/07/19 Blood Culture - Preliminary, Resulted No growth 10/05/19 Influenza Types A,B Antigen (VICENTE) - Final, Complete 10/05/19 Urine Culture - Final, Complete NO GROWTH A/P: Assessment: Pneumonia - management per Medical services PAF, first documented during pneumonia in December 2015 - has had PAF with [facility] during this hosp - currently NSR Chronic stroke prophylaxis with apixaban CAD with h/o Resolute 2.5x12 to mid LCX in May 2012, and Resolute 2.5x12 to distal LCx in Oct 2012. MPI of January 19, 2019 showed no evidence of ischemia or infarction; LVEF was 94% Echo of December 2018 showed LVEF 60-65%, concentric hypertrophy. Mod MR. PASP approx 45-50mmHg Pulmonary HTN - followed by Dr. Hightower Abdominal aortic and peripheral angiogram of August 2016 did not indicate any significant abdominal aortic aneurysm. No significant renal artery stenosis. No significant peripheral arterial disease involving the circulation of the lower limbs. 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 Maintaining NSR at this time * Continue dilt for vent rate control * Continue bb * Continue OAC with Eliquis for stroke prophylaxis * Continue ASA d/t known h/o CAD * Replace electrolytes as needed * Monitor labs * I spoke with him and explained his CV issues to him BO MCCORMICK MD FACP FAC CCDS Oct 09, 2019 09:25 POS
[2019-10-09] MEDS: PANTOPRAZOLE 20 MG TABLET (PROTONIX) PO SCH (09:47)
[2019-10-09] MEDS: meTOprolol TARTRATE 25 MG (LOPRESSOR) TABLET PO SCH ×2 (09:48→20:06)
[2019-10-09] MEDS: HYDROCHLOROTHIAZIDE 12.5 MG (HCTZ) CAP PO SCH (09:48)
[2019-10-09] MEDS: ALLOPURINOL 300 MG (ZYLOPRIM) TAB PO SCH ×2 (09:48→20:06)
[2019-10-09] MEDS: DILTIAZEM 180 MG (CARDIZEM CD) CAP PO SCH (09:48)
[2019-10-09] MEDS: GABAPENTIN 300 MG (NEURONTIN) CAP PO SCH ×2 (09:48→20:06)
[2019-10-09] MEDS: TAMSULOSIN 0.4 MG (FLOMAX) CAP PO SCH (09:48)
[2019-10-09] MEDS: FLUoxetine HCL 20 MG (PROzac) CAP PO SCH (09:48)
[2019-10-09] MEDS: lisINopril 10 MG (PRINIVIL) TABLET PO SCH (09:49)
[2019-10-09] MEDS: APIXABAN 5 MG (ELIQUIS) TABLET PO SCH ×2 (09:49→20:06)
[2019-10-09] MEDS: FUROSEMIDE 40 MG/4 ML INJ (LASIX) IVP SCH (09:49)
--- NOTE | 2019-10-09 09:54 | Progress Note - Hospitalist ---
Subjective HPI/CC On Admission Date Seen by Provider: Oct 09, 2019 Time Seen by Provider: 08:50 Subjective/Events-last exam Patient resting comfortably on BiPAP no evidence for respiratory distress Focused Exam Lactate Level 10/07/19 04:35: Lactic Acid Level 1.00 Objective Exam Vital Signs Vital Signs Date Time Temp Pulse Resp B/P (MAP) Pulse Ox O2 Delivery O2 Flow Rate FiO2 10/09/19 09:00 88 19 123/76 (92) 94 NIV Bilevel 30.00 10/09/19 04:00 45 10/09/19 04:00 37.2 Capillary Refill : Less Than 3 Seconds General Appearance: No Apparent Distress Respiratory: No Accessory Muscle Use, No Respiratory Distress, Other (Mild expiratory wheeze noted no rales or rhonchi appreciated) Cardiovascular: Regular Rate, Rhythm (Frequent PACs noted on monitor), No Edema, No Gallop, No JVD, No Murmur Results/Procedures Lab Laboratory Tests 10/08/19 12:55 10/09/19 02:50 Patient resulted labs reviewed. Assessment/Plan Assessment and Plan Assess & Plan/Chief Complaint (1) Bilateral pneumonia Status: Acute Assessment & Plan: - Continue on Antibiotics, titrate oxygen as tolerated, MAT Protocol, Incentive spirometer 10/07: Currently at baseline oxygen but having shortness of breath with minimal exertion 10/08: Patient decompensated early this AM and was transferred to ICU, placed on bipap, Dr Hightower managing 10/08: Respiratory status this morning on BiPAP overnight improved patient responding to bronchodilator and anti-inflammatory as well as antibiotic therapy. Qualifiers: Qualified Codes: J18.1 - Lobar pneumonia, unspecified organism (2) COPD exacerbation Status: Acute Assessment & Plan: - antibiotics and steroids (3) Normocytic anemia Status: Chronic Assessment & Plan: - iron studies pending 10/07: Iron def anemia with % Sat 5%, will start venefer (4) Insulin dependent diabetes mellitus with complications Status: Chronic Assessment & Plan: - A1c pending (5) Atrial fibrillation Status: Chronic Assessment & Plan: - Patient on Eliquis Qualifiers: Qualified Codes: I48.0 - Paroxysmal atrial fibrillation (6) CAD (coronary artery disease) Status: Acute Qualifiers: Qualified Codes: I25.10 - Atherosclerotic heart disease of [place] coronary artery without angina pectoris (7) HTN (hypertension) Status: Chronic Assessment & Plan: - Holding BP meds due to normotensive/hypotension 10/07: Blood pressure improved, continue to hold for normotension 10/08: meds held due to hypotension Qualifiers: Qualified Codes: I10 - Essential (primary) hypertension (8) DVT prophylaxis Status: Acute Assessment & Plan: - [facility] Critical Care Critically Ill Patient Clinical Quality Measures DVT/VTE Risk/Contraindication: Risk Factor Score Per Nursin RFS Level Per Nursing on Admit: 4+=Very High LORAINE MCINTOSH MD Oct 09, 2019 09:54 POS
--- NOTE | 2019-10-09 10:00 | Physical Therapy Progress Note ---
Therapy Progress Note Pt transferred to ICU. PT will need new orders to resume. MASON KRAUS DPWagner Oct 09, 2019 10:00 POS
--- NOTE | 2019-10-09 10:17 | Diagnostic Imaging Report ---
INDICATION: Dyspnea. Portable chest obtained at 03:32 a.m. and compared to yesterday. FINDINGS: There is prominent cardiomegaly. There is very poor inspiration with extensive bilateral infiltrates appearing stable and unchanged. There is no pneumothorax or gross pleural fluid. IMPRESSION: Unchanged extensive bilateral infiltrates. Dictated by: Dictated on workstation # [id number]
[2019-10-09] MEDS: methylPREDNISolone 40 MG/ML (Solu-MEDROL) VIAL IV SCH ×3 (12:33→23:49)
[2019-10-09] MEDS: IRON SUCROSE 200 MG/10 ML (VENOFER) VIAL IV NR (18:13)
[2019-10-09] MEDS: MONTELUKAST 10 MG (SINGULAIR) TAB PO SCH (20:06)
[2019-10-09] MEDS: FENOFIBRATE 134 MG (LOFIBRA) CAPSULE PO SCH (20:06)
[2019-10-09] MEDS: ASPIRIN 81 MG CHEW (CHILDREN'S ASA) PO SCH (20:06)
[2019-10-09] MEDS: ROSUVASTATIN 20 MG (CRESTOR) TABLET PO SCH (20:06)
[2019-10-10] VITALS (25 sets, daily range): BP systolic 98–132; BP diastolic 55–78
[2019-10-10] MEDS: RT-ALBUTEROL/IPRATROPIUM 3 ML (DUONEB) VIAL IH SCH ×6 (00:58→21:15)
[2019-10-10 03:26] LABS: BASOPHILS % (AUTO) 0 % (0-10); EOSINOPHILS % (AUTO) 0 % (0-10); HEMATOCRIT 35 % (40-54); HEMOGLOBIN 10.6 G/DL (13.3-17.7); LYMPHOCYTES # (AUTO) 0.6 X 10^3 (1.0-4.0); LYMPHOCYTES % (AUTO) 9 % (12-44); MEAN CORPUSCULAR HEMOGLOBIN 27 PG (25-34); MEAN CORPUSCULAR HGB CONC 31 G/DL (32-36); MEAN CORPUSCULAR VOLUME 90 FL (80-99); MEAN PLATELET VOLUME 9.4 FL (7.4-10.4); MONOCYTES # (AUTO) 0.5 X 10^3 (0.0-1.0); MONOCYTES % (AUTO) 7 % (0-12); NEUTROPHILS # (AUTO) 5.4 X 10^3 (1.8-7.8); NEUTROPHILS % (AUTO) 83 % (42-75); PLATELET COUNT 214 10^3/uL (130-400); WHITE BLOOD COUNT 6.5 10^3/uL (4.3-11.0)
[2019-10-10] MEDS: PIPERACILLIN/TAZOBACTAM (BULK) 4.5 GM in NS (IVPB) 100 ML IV SCH ×3 (03:44→21:15)
[2019-10-10 03:45] LABS: BUN/CREATININE RATIO 26; CARBON DIOXIDE 24 MMOL/L (21-32); CHLORIDE 101 MMOL/L (98-107); CREATININE SERUM 0.72 MG/DL (0.60-1.30); GFR ESTIMATED > 60; GLUCOSE 214 MG/DL (70-105); MAGNESIUM 1.6 MG/DL (1.6-2.4); POTASSIUM 2.8 MMOL/L (3.6-5.0); SODIUM 139 MMOL/L (135-145)
[2019-10-10 04:17] LABS: ABG BASE EXCESS 7.1 MMOL/L (-2.5-2.5); ABG OXYGEN SATURATION 79 % (94-100); ABG PCO2 53 MMHG (35-45); ABG PH 7.39 (7.37-7.43); ABG PO2 47 MMHG (79-93); ABG TCO2 33.9 MMOL/L (21.0-31.0)
[2019-10-10 04:18] LABS: ALLENS TEST YES-POS; INSPIRED O2 45%; PATIENT TEMP 35.8; VENTILATOR NO
[2019-10-10] MEDS: POTASSIUM CL 10MEQ/50ML IVPB 50 ML IV SCH ×6 (04:24→18:29)
[2019-10-10] MEDS: MAGNESIUM 1 GM/100 ML IVPB 100 ML IV SCH ×3 (04:25→06:55)
[2019-10-10] MEDS: KCL 20 MEQ TAB (K-DUR) PO SCH (04:25)
[2019-10-10] MEDS: inSUlin ASPART (NovoLOG) 1 UNIT/0.01 ML (CHARGE PER UNIT) SQ SCH ×2 (05:04→12:00)
[2019-10-10] MEDS: methylPREDNISolone 40 MG/ML (Solu-MEDROL) VIAL IV SCH ×3 (05:05→17:55)
[2019-10-10] MEDS: CATHETER FLUSH 10 ML SYR IV SCH ×3 (05:05→21:18)
--- NOTE | 2019-10-10 06:30 | Pulmonary Progress Note ---
Sepsis Event Evaluation Height, Weight, BMI Height: 5'6.00" Weight: 179lbs. 8.0oz. 81.989829di; 29.00 BMI Method:Stated Exam Exam Vital Signs Date Time Temp Pulse Resp B/P (MAP) Pulse Ox O2 Delivery O2 Flow Rate FiO2 10/10/19 05:00 58 17 105/55 (72) 97 NIV Bilevel 35.00 10/10/19 04:00 98 NIV Bilevel 45 10/10/19 04:00 58 16 110/64 (79) 97 NIV Bilevel 30.00 10/10/19 04:00 35.8 10/10/19 03:00 61 15 100/59 (73) 97 NIV Bilevel 30.00 10/10/19 02:00 60 16 100/59 (73) 96 NIV Bilevel 30.00 10/10/19 01:00 58 16 110/63 (79) 98 NIV Bilevel 30.00 10/10/19 01:00 70 10/10/19 00:58 58 16 99 50.00 10/10/19 00:00 94 NIV Bilevel 45 10/10/19 00:00 57 17 106/62 (77) 98 NIV Bilevel 30.00 10/10/19 00:00 36.0 10/09/19 23:00 62 20 98/55 (69) 96 NIV Bilevel 30.00 10/09/19 22:00 63 19 97/56 (70) 95 NIV Bilevel 30.00 10/09/19 21:30 NIV Bilevel 50.00 10/09/19 21:10 73 20 95 50.00 10/09/19 21:00 82 20 116/61 (79) 95 NIV Bilevel 30.00 10/09/19 20:59 91 High Flow N/C 6.50 10/09/19 20:00 36.4 10/09/19 20:00 92 22 116/64 (81) 92 NIV Bilevel 30.00 10/09/19 20:00 90 High Flow N/C 5.00 10/09/19 19:00 71 17 112/60 (77) 94 NIV Bilevel 30.00 10/09/19 19:00 71 10/09/19 18:00 82 25 119/66 (83) 92 NIV Bilevel 30.00 10/09/19 17:00 89 30 121/65 (83) 92 NIV Bilevel 30.00 10/09/19 16:00 79 113/63 (80) 93 NIV Bilevel 30.00 10/09/19 16:00 92 Nasal Cannula 5.00 10/09/19 16:00 36.3 10/09/19 15:00 88 21 123/69 (87) 93 NIV Bilevel 30.00 10/09/19 14:19 93 High Flow N/C 5.00 10/09/19 14:00 79 20 103/61 (75) 93 NIV Bilevel 30.00 10/09/19 13:00 85 22 111/71 (84) NIV Bilevel 30.00 10/09/19 12:27 82 10/09/19 12:00 36.3 10/09/19 12:00 92 Nasal Cannula 5.00 10/09/19 12:00 80 9 114/70 (85) 98 NIV Bilevel 30.00 10/09/19 11:00 86 19 137/84 (101) 95 NIV Bilevel 30.00 10/09/19 10:29 81 21 94 35.00 10/09/19 10:00 88 19 128/95 (106) 94 NIV Bilevel 30.00 10/09/19 09:00 88 19 123/76 (92) 94 NIV Bilevel 30.00 10/09/19 08:00 92 NIV Bilevel 45 10/09/19 08:00 92 7 130/80 (97) 92 NIV Bilevel 30.00 10/09/19 07:20 91 26 93 35.00 10/09/19 07:00 91 10/09/19 07:00 100 12 134/76 (95) 93 NIV Bilevel 30.00 I & O 10/10/19 07:00 Intake Total 2087.5 ml Output Total 7250 ml Balance -5162.5 ml Height & Weight Height: 5'6.00" Weight: 179lbs. 8.0oz. 81.047255af; 29.00 BMI Method:Stated General Appearance: No Apparent Distress HEENT: PERRL/EOMI, Normal ENT Inspection Neck: Normal Inspection Respiratory: No Accessory Muscle Use, No Respiratory Distress, Other (Mild expiratory wheeze noted no rales or rhonchi appreciated) Cardiovascular: Regular Rate, Rhythm (Frequent PACs noted on monitor), No Edema , No Gallop, No JVD, No Murmur Capillary Refill: Less Than 3 Seconds Gastrointestinal: normal bowel sounds, non tender, soft, no organomegaly Extremity: Normal Inspection, Non Tender, Swelling (and mild lower extremity pitting edema) Neurologic/Psychiatric: Alert, Oriented x3, No Motor/Sensory Deficits, 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
[2019-10-10] MEDS: MAGNESIUM OXIDE (MAG-OX)400 MG TAB PO SCH (06:54)
[2019-10-10] MEDS: VANCOMYCIN 1250 MG/NS 250 ML IVPB IV SCH ×4 (06:55→17:56)
--- NOTE | 2019-10-10 08:00 | NUR ---
up to bedside commode with 1 assist. sa02 dropped to upper 80s but recovered quickly
--- NOTE | 2019-10-10 08:07 | Diagnostic Imaging Report ---
INDICATION: Dyspnea. COMPARISON: 10/09/2019 FINDINGS: Single frontal radiograph view of the chest was obtained and again demonstrates diffuse mild prominence interstitium. There has, however been interval improvement in scattered areas of alveolar consolidation. Left hemidiaphragm remains mostly obscured. No large effusion is seen on the right. No pneumothorax is identified on either side. Cardiac silhouette is enlarged. Pulmonary vasculature is within normal limits. IMPRESSION: 1. Interval improved aeration as above. Dictated by: Dictated on workstation # [id number]
[2019-10-10] MEDS: TAMSULOSIN 0.4 MG (FLOMAX) CAP PO SCH (08:43)
[2019-10-10] MEDS: APIXABAN 5 MG (ELIQUIS) TABLET PO SCH ×2 (08:43→21:16)
[2019-10-10] MEDS: ALLOPURINOL 300 MG (ZYLOPRIM) TAB PO SCH ×2 (08:43→21:16)
[2019-10-10] MEDS: DILTIAZEM 180 MG (CARDIZEM CD) CAP PO SCH (08:43)
[2019-10-10] MEDS: GABAPENTIN 300 MG (NEURONTIN) CAP PO SCH ×2 (08:43→21:16)
[2019-10-10] MEDS: lisINopril 10 MG (PRINIVIL) TABLET PO SCH (08:43)
[2019-10-10] MEDS: PANTOPRAZOLE 20 MG TABLET (PROTONIX) PO SCH (08:43)
[2019-10-10] MEDS: HYDROCHLOROTHIAZIDE 12.5 MG (HCTZ) CAP PO SCH (08:43)
[2019-10-10] MEDS: FUROSEMIDE 40 MG/4 ML INJ (LASIX) IVP SCH (08:44)
[2019-10-10] MEDS: FLUoxetine HCL 20 MG (PROzac) CAP PO SCH (08:44)
[2019-10-10] MEDS: meTOprolol TARTRATE 25 MG (LOPRESSOR) TABLET PO SCH ×2 (08:44→21:16)
--- NOTE | 2019-10-10 11:00 | NUR ---
up to chair with 1 assist. tolerated well. sa02 remained greater than 90
--- NOTE | 2019-10-10 12:25 | Progress Note - Hospitalist ---
Subjective HPI/CC On Admission Date Seen by Provider: Oct 10, 2019 Time Seen by Provider: 10:00 Subjective/Events-last exam Patient awake and alert reports she's feeling better with less shortness of breath. Objective Exam Vital Signs Vital Signs Date Time Temp Pulse Resp B/P (MAP) Pulse Ox O2 Delivery O2 Flow Rate FiO2 10/10/19 12:18 67 10/10/19 12:00 36.4 10/10/19 12:00 124/77 (93) 94 NIV Bilevel 35.00 10/10/19 11:00 20 10/10/19 04:00 45 Capillary Refill : Less Than 3 Seconds General Appearance: No Apparent Distress Respiratory: No Accessory Muscle Use, No Respiratory Distress, Other (Much improved and no wheezing noted anteriorly diminished breath sounds both bases without rales or rhonchi.) Cardiovascular: Regular Rate, Rhythm, No Edema, No Gallop, No JVD, No Murmur, Normal Peripheral Pulses Gastrointestinal: Normal Bowel Sounds, No Organomegaly, No Pulsatile Mass, Non Tender, Soft Results/Procedures Lab Laboratory Tests 10/10/19 03:18 Patient resulted labs reviewed. Assessment/Plan Assessment and Plan Assess & Plan/Chief Complaint (1) Bilateral pneumonia Status: Acute Assessment & Plan: - Continue on Antibiotics, titrate oxygen as tolerated, MAT Protocol, Incentive spirometer 10/07: Currently at baseline oxygen but having shortness of breath with minimal exertion 10/08: Patient decompensated early this AM and was transferred to ICU, placed on bipap, Dr Hightower managing 10/09: Respiratory status this morning on BiPAP overnight improved patient responding to bronchodilator and anti-inflammatory as well as antibiotic therapy. 10/10: Rest are status improving patient tolerating being off BiPAP will have patient set up in the chair. Potassium was 2.8 being replaced IV per ICU protocol. Blood sugar control has not been good due to IV Solu-Medrol. As this is likely going to be tapered on concerned about starting regular higher dose basal bolus therapy especially in light of the fact I will not be taking care of the patient in the future and have concerns about hypoglycemia on steroid taper. We will however switch to insulin C sliding scale. Qualifiers: Qualified Codes: J18.1 - Lobar pneumonia, unspecified organism (2) COPD exacerbation Status: Acute Assessment & Plan: - antibiotics and steroids (3) Normocytic anemia Status: Chronic Assessment & Plan: - iron studies pending 10/07: Iron def anemia with % Sat 5%, will start venefer (4) Insulin dependent diabetes mellitus with complications Status: Chronic Assessment & Plan: - A1c pending (5) Atrial fibrillation Status: Chronic Assessment & Plan: - Patient on Eliquis Qualifiers: Qualified Codes: I48.0 - Paroxysmal atrial fibrillation (6) CAD (coronary artery disease) Status: Acute Qualifiers: Qualified Codes: I25.10 - Atherosclerotic heart disease of [place] coronary artery without angina pectoris (7) HTN (hypertension) Status: Chronic Assessment & Plan: - Holding BP meds due to normotensive/hypotension 10/07: Blood pressure improved, continue to hold for normotension 10/08: meds held due to hypotension Qualifiers: Qualified Codes: I10 - Essential (primary) hypertension (8) DVT prophylaxis Status: Acute Assessment & Plan: - Eliquis Critical Care Critically Ill Patient Clinical Quality Measures DVT/VTE Risk/Contraindication: Risk Factor Score Per Nursin RFS Level Per Nursing on Admit: 4+=Very High LORAINE MCINTOSH MD Oct 10, 2019 12:25 POS
[2019-10-10] MEDS ORDERED: NS IV 500 ML 500 ML ONE (14:39)
--- NOTE | 2019-10-10 16:49 | Progress Note - Cardiology ---
Cardiology SOAP Progress Note Subjective: Shortness of breath slowly improving No cp or palp or syncope Gen malaise and weakness present Objective: I&O/Vital Signs 10/10/19 10/10/19 10/10/19 10/10/19 05:00 06:00 07:00 07:00 Pulse 58 55 86 78 Resp 17 20 B/P (MAP) 105/55 (72) 120/68 (85) 132/73 (92) Pulse Ox 97 93 90 O2 Delivery NIV Bilevel NIV Bilevel NIV Bilevel O2 Flow Rate 35.00 35.00 35.00 10/10/19 10/10/19 10/10/19 10/10/19 08:00 08:00 09:00 10:00 Pulse 96 87 90 Resp 23 B/P (MAP) 130/57 (81) 105/69 (81) Pulse Ox 94 98 95 95 O2 Delivery NIV Bilevel NIV Bilevel NIV Bilevel NIV Bilevel O2 Flow Rate 35.00 35.00 35.00 FiO2 45 10/10/19 10/10/19 10/10/19 10/10/19 11:00 11:06 12:00 12:00 Pulse 77 81 Resp 20 B/P (MAP) 128/68 (88) 124/77 (93) Pulse Ox 91 94 98 94 O2 Delivery NIV Bilevel High Flow N/C NIV Bilevel NIV Bilevel O2 Flow Rate 35.00 5.00 35.00 FiO2 45 10/10/19 10/10/19 10/10/19 10/10/19 12:00 12:18 13:00 14:00 Temp 36.4 Pulse 67 87 63 B/P (MAP) 120/78 (92) 98/75 (83) Pulse Ox 92 96 O2 Delivery NIV Bilevel NIV Bilevel O2 Flow Rate 35.00 35.00 10/10/19 10/10/19 10/10/19 10/10/19 14:20 15:00 16:00 16:00 Temp 36.2 Pulse 92 B/P (MAP) 98/78 (85) Pulse Ox 97 94 98 O2 Delivery High Flow N/C NIV Bilevel Nasal Cannula O2 Flow Rate 2.00 35.00 3.00 10/10/19 16:00 Pulse 74 Resp 17 B/P (MAP) Pulse Ox 94 O2 Delivery NIV Bilevel O2 Flow Rate 35.00 10/09/19 23:59 Intake Total 1762.5 ml Output Total 3300 ml Balance -1537.5 ml Weight (Pounds): 179 Weight (Ounces): 8.0 Weight (Calculated Kilograms): 81.310580 Constitutional: AAO x 3, well-developed, well-nourished Respiratory: No accessory muscle use, No respiratory distress; chest expansion is symmetric, crackles (coarse bi-basilar), rhonchi (scattered), other (on BiPAP) Gastrointestional: No tender; soft, audible bowel sounds Extremities: No significant edema Neurologic/Psychiatric: grossly intact (moves all extremities) Skin: normal color, warm/dry; No rash on exposed areas, No ulcerations on exposed areas Results/Procedures: Labs Laboratory Tests 10/09/19 18:35: Glucometer 296H 10/09/19 20:56: Glucometer 280H 10/09/19 23:39: Glucometer 247H 10/10/19 03:18: White Blood Count 6.5, Red Blood Count 3.87L, Hemoglobin 10.6L, Hematocrit 35L, Mean Corpuscular Volume 90, Mean Corpuscular Hemoglobin 27, Mean Corpuscular Hemoglobin Concent 31L, Red Cell Distribution Width 17.0H, Platelet Count 214, Mean Platelet Volume 9.4, Neutrophils (%) (Auto) 83H, Lymphocytes (%) (Auto) 9L, Monocytes (%) (Auto) 7, Eosinophils (%) (Auto) 0, Basophils (%) (Auto) 0, Neutrophils # (Auto) 5.4, Lymphocytes # (Auto) 0.6L, Monocytes # (Auto) 0.5, Eosinophils # (Auto) 0.0, Basophils # (Auto) 0.0, Sodium Level 139, Potassium Level 2.8L, Chloride Level 101, Carbon Dioxide Level 24, Anion Gap 14, Blood Urea Nitrogen 19H, Creatinine 0.72, Estimat Glomerular Filtration Rate > 60, BUN/Creatinine Ratio 26, Glucose Level 214H, Calcium Level 9.0, Phosphorus Level 2.0L, Magnesium Level 1.6 10/10/19 04:10: Blood Gas Puncture Site RIGHT RADIAL, Blood Gas Patient Temperature 35.8, Arterial Blood pH 7.39, Arterial Blood Partial Pressure CO2 53H, Arterial Blood Partial Pressure O2 47L, Arterial Blood HCO3 32H, Arterial Blood Total CO2 33.9H , Arterial Blood Oxygen Saturation 79L, Arterial Blood Base Excess 7.1H, Hiro Test YES-POS, Blood Gas Ventilator Setting NO, Blood Gas Inspired Oxygen 45% 10/10/19 11:56: Glucometer 331H Microbiology 10/07/19 Blood Culture - Preliminary, Resulted No growth 10/05/19 Influenza Types A,B Antigen (VICENTE) - Final, Complete 10/05/19 Urine Culture - Final, Complete NO GROWTH Laboratory Tests 10/09/19 02:50 10/10/19 03:18 A/P: Assessment: Pneumonia - management per Medical services PAF, first documented during pneumonia in December 2015 - has had PAF with RVR during this hosp - currently NSR Chronic stroke prophylaxis with apixaban CAD with h/o Resolute 2.5x12 to mid LCX in May 2012, and Resolute 2.5x12 to distal LCx in Oct 2012. MPI of January 19, 2019 showed no evidence of ischemia or infarction; LVEF was 94% Echo of December 2018 showed LVEF 60-65%, concentric hypertrophy. Mod MR. PASP approx 45-50mmHg Pulmonary HTN - followed by Dr. Hightower Abdominal aortic and peripheral angiogram of August 2016 did not indicate any significant abdominal aortic aneurysm. No significant renal artery stenosis. No significant peripheral arterial disease involving the circulation of the lower limbs. 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
[2019-10-10] MEDS: IRON SUCROSE 200 MG/10 ML (VENOFER) VIAL IV NR (17:55)
[2019-10-10] MEDS: inSUlin ASPART (NovoLOG) 1 UNIT/0.01 ML (CHARGE PER UNIT) SC SCH (17:56)
[2019-10-10] MEDS: MONTELUKAST 10 MG (SINGULAIR) TAB PO SCH (21:16)
[2019-10-10] MEDS: FENOFIBRATE 134 MG (LOFIBRA) CAPSULE PO SCH (21:16)
[2019-10-10] MEDS: ASPIRIN 81 MG CHEW (CHILDREN'S ASA) PO SCH (21:16)
[2019-10-10] MEDS: ROSUVASTATIN 20 MG (CRESTOR) TABLET PO SCH (21:18)
[2019-10-11] VITALS (14 sets, daily range): BP systolic 109–139; BP diastolic 63–113
[2019-10-11] MEDS: RT-ALBUTEROL/IPRATROPIUM 3 ML (DUONEB) VIAL IH SCH ×6 (02:31→21:52)
[2019-10-11 03:37] LABS: BASOPHILS % (AUTO) 1 % (0-10); EOSINOPHILS % (AUTO) 0 % (0-10); HEMATOCRIT 37 % (40-54); HEMOGLOBIN 11.4 G/DL (13.3-17.7); LYMPHOCYTES # (AUTO) 0.6 X 10^3 (1.0-4.0); LYMPHOCYTES % (AUTO) 10 % (12-44); MEAN CORPUSCULAR HEMOGLOBIN 28 PG (25-34); MEAN CORPUSCULAR HGB CONC 31 G/DL (32-36); MEAN CORPUSCULAR VOLUME 91 FL (80-99); MEAN PLATELET VOLUME 10.2 FL (7.4-10.4); MONOCYTES # (AUTO) 0.4 X 10^3 (0.0-1.0); MONOCYTES % (AUTO) 7 % (0-12); NEUTROPHILS % (AUTO) 83 % (42-75); PLATELET COUNT 236 10^3/uL (130-400); RED CELL DISTRIBUTION WIDTH 16.7 % (10.0-14.5)
[2019-10-11 03:59] LABS: BUN/CREATININE RATIO 34; CALCIUM 9.4 MG/DL (8.5-10.1); CARBON DIOXIDE 28 MMOL/L (21-32); CHLORIDE 100 MMOL/L (98-107); CREATININE SERUM 0.82 MG/DL (0.60-1.30); GFR ESTIMATED > 60; GLUCOSE 296 MG/DL (70-105); MAGNESIUM 1.9 MG/DL (1.6-2.4); PHOSPHORUS 1.4 MG/DL (2.3-4.7); SODIUM 140 MMOL/L (135-145)
[2019-10-11] MEDS: POTASSIUM CL 10MEQ/50ML IVPB 50 ML IV SCH (05:27)
[2019-10-11] MEDS: KCL 20 MEQ TAB (K-DUR) PO SCH (05:27)
[2019-10-11] MEDS: MAGNESIUM 1 GM/100 ML IVPB 100 ML IV SCH (05:27)
[2019-10-11] MEDS: VANCOMYCIN 1250 MG/NS 250 ML IVPB IV SCH ×2 (05:35)
[2019-10-11] MEDS: methylPREDNISolone 40 MG/ML (Solu-MEDROL) VIAL IV SCH ×5 (05:35→23:34)
[2019-10-11] MEDS: CATHETER FLUSH 10 ML SYR IV SCH ×3 (05:35→23:34)
[2019-10-11] MEDS: inSUlin ASPART (NovoLOG) 1 UNIT/0.01 ML (CHARGE PER UNIT) SC SCH ×5 (05:40→21:13)
--- NOTE | 2019-10-11 06:09 | Pulmonary Progress Note ---
Subjective Time Seen by a Provider: 06:07 Sepsis Event Evaluation Height, Weight, BMI Height: 5'6.00" Weight: 179lbs. 8.0oz. 81.981558jl; 29.00 BMI Method:Stated Exam Exam Vital Signs Date Time Temp Pulse Resp B/P (MAP) Pulse Ox O2 Delivery O2 Flow Rate FiO2 10/11/19 05:34 High Flow N/C 3.00 10/11/19 04:00 59 27 126/65 (85) 96 High Flow N/C 5.00 10/11/19 03:50 High Flow N/C 5.00 10/11/19 03:11 67 15 92 High Flow N/C 5.00 10/11/19 03:00 59 18 109/65 (80) 93 NIV Bilevel 30.00 10/11/19 02:31 55 26 94 25.00 10/11/19 02:00 54 122/64 (83) 96 NIV Bilevel 30.00 10/11/19 01:00 53 120/63 (82) 95 NIV Bilevel 30.00 10/11/19 01:00 53 10/11/19 00:00 36.0 10/11/19 00:00 NIV Bilevel 30 10/11/19 00:00 60 12 127/68 (87) 95 NIV Bilevel 30.00 10/10/19 23:00 59 21 115/63 (80) 94 NIV Bilevel 30.00 10/10/19 22:00 61 19 125/66 (85) 94 NIV Bilevel 30.00 10/10/19 21:20 75 20 95 NIV Bilevel 30.00 10/10/19 21:15 67 20 96 30.00 10/10/19 21:00 66 25 124/65 (84) 94 NIV Bilevel 35.00 10/10/19 20:00 65 127/74 (91) 95 NIV Bilevel 35.00 10/10/19 20:00 NIV Bilevel 35 10/10/19 20:00 35.6 10/10/19 19:00 64 122/66 (84) 95 NIV Bilevel 35.00 10/10/19 19:00 64 10/10/19 18:39 70 23 95 35.00 10/10/19 18:00 71 127/70 (89) 94 Nasal Cannula 3.00 10/10/19 17:00 79 116/66 (83) 93 Nasal Cannula 3.00 10/10/19 16:00 74 17 94 Nasal Cannula 3.00 10/10/19 16:00 98 Nasal Cannula 3.00 10/10/19 16:00 36.2 10/10/19 15:00 92 98/78 (85) 94 Nasal Cannula 3.00 10/10/19 14:20 97 High Flow N/C 2.00 10/10/19 14:00 63 98/75 (83) 96 Nasal Cannula 3.00 10/10/19 13:00 87 120/78 (92) 92 Nasal Cannula 3.00 10/10/19 12:18 67 10/10/19 12:00 36.4 10/10/19 12:00 81 124/77 (93) 94 Nasal Cannula 3.00 10/10/19 12:00 98 NIV Bilevel 45 10/10/19 11:06 94 High Flow N/C 5.00 10/10/19 11:00 77 20 128/68 (88) 91 NIV Bilevel 35.00 10/10/19 10:00 90 105/69 (81) 95 NIV Bilevel 35.00 10/10/19 09:00 87 23 95 NIV Bilevel 35.00 10/10/19 08:00 98 NIV Bilevel 45 10/10/19 08:00 96 130/57 (81) 94 NIV Bilevel 35.00 10/10/19 07:00 78 10/10/19 07:00 86 132/73 (92) 90 NIV Bilevel 35.00 I & O 10/11/19 07:00 Intake Total 2552.5 ml Output Total 3850 ml Balance -1297.5 ml Height & Weight Height: 5'6.00" Weight: 179lbs. 8.0oz. 81.320962sm; 29.00 BMI Method:Stated General Appearance: No Apparent Distress HEENT: PERRL/EOMI, Normal ENT Inspection Neck: Normal Inspection Respiratory: No Accessory Muscle Use, No Respiratory Distress, Other (Much improved and no wheezing noted anteriorly diminished breath sounds both bases without rales or rhonchi.) Cardiovascular: Regular Rate, Rhythm, No Edema, No Gallop, No JVD, No Murmur, Normal Peripheral Pulses Capillary Refill: Less Than 3 Seconds Gastrointestinal: normal bowel sounds, non tender, soft, no organomegaly Extremity: Normal Inspection, Non Tender, Swelling (and mild lower extremity pitting edema) Neurologic/Psychiatric: Alert, Oriented x3, No Motor/Sensory Deficits, Normal Mood/Affect, 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
[2019-10-11] MEDS: MAGNESIUM OXIDE (MAG-OX)400 MG TAB PO SCH (06:44)
[2019-10-11] MEDS ORDERED: PIPERACILLIN/TAZO 4.5 GM/NS 100 ML IV NR ×2 (07:00)
--- NOTE | 2019-10-11 07:29 | Diagnostic Imaging Report ---
EXAMINATION: Chest 1 view HISTORY: Dyspnea. COMPARISON: 10/10/2019 FINDINGS: There is improved aeration in the right lung with continued opacities in the left lung base. Stable prominent cardiac silhouette. Stable small to moderate left pleural effusion. No large pneumothorax. No acute osseous abnormalities. IMPRESSION: 1. Improved aeration in the right lung with continued left pleural effusion and left basilar opacities. 2. Stable cardiomegaly. Dictated by: Dictated on workstation # [id number]
[2019-10-11 07:42] LABS: ABG BASE EXCESS 9.6 MMOL/L (-2.5-2.5); ABG OXYGEN SATURATION 95 % (94-100); ABG PCO2 48 MMHG (35-45); ABG PH 7.46 (7.37-7.43); ABG PO2 72 MMHG (79-93); ABG TCO2 35.7 MMOL/L (21.0-31.0)
[2019-10-11 07:43] LABS: ALLENS TEST YES-POS; INSPIRED O2 3 L; PATIENT TEMP 35.9; VENTILATOR NO
[2019-10-11] MEDS: DILTIAZEM 180 MG (CARDIZEM CD) CAP PO SCH (07:54)
[2019-10-11] MEDS: TAMSULOSIN 0.4 MG (FLOMAX) CAP PO SCH (07:54)
[2019-10-11] MEDS: HYDROCHLOROTHIAZIDE 12.5 MG (HCTZ) CAP PO SCH (07:54)
[2019-10-11] MEDS: FUROSEMIDE 40 MG/4 ML INJ (LASIX) IVP SCH (07:54)
[2019-10-11] MEDS: APIXABAN 5 MG (ELIQUIS) TABLET PO SCH ×2 (07:55→21:13)
[2019-10-11] MEDS: meTOprolol TARTRATE 25 MG (LOPRESSOR) TABLET PO SCH ×2 (07:55→21:13)
[2019-10-11] MEDS: lisINopril 10 MG (PRINIVIL) TABLET PO SCH (07:55)
[2019-10-11] MEDS: FLUoxetine HCL 20 MG (PROzac) CAP PO SCH (07:55)
[2019-10-11] MEDS: GABAPENTIN 300 MG (NEURONTIN) CAP PO SCH ×2 (07:55→21:13)
[2019-10-11] MEDS: ALLOPURINOL 300 MG (ZYLOPRIM) TAB PO SCH ×2 (07:56→21:13)
[2019-10-11] MEDS: PANTOPRAZOLE 20 MG TABLET (PROTONIX) PO SCH (07:56)
--- NOTE | 2019-10-11 08:01 | Physical Therapy Progress Note ---
Therapy Progress Note Patient transferred to ICU. Upon transfer, PT requires new orders to continue with POC. RN will be notified again. JENNIFER LINTON PT Oct 11, 2019 08:01 POS
--- NOTE | 2019-10-11 08:38 | Progress Note - Cardiology ---
Cardiology SOAP Progress Note Subjective: Sitting up in recliner at the bedside eating breakfast. Feels his breathing is much improved, but not yet back to his baseline. No c/o CP, palpitations or near syncope. C/O gen weakness. Objective: I&O/Vital Signs 10/12/19 10/12/19 10/12/19 10/12/19 00:08 04:00 06:31 08:00 Temp 35.9 36.0 36.3 Pulse 63 60 68 Resp 18 20 16 B/P (MAP) 137/76 (96) 129/73 (91) 111/67 (82) Pulse Ox 98 98 97 98 O2 Delivery NIV CPAP NIV CPAP NIV CPAP High Flow N/C O2 Flow Rate 3.00 4.00 10/12/19 10/12/19 09:00 10:08 Pulse Ox 94 O2 Delivery High Flow N/C High Flow N/C O2 Flow Rate 5.03 3.00 10/12/19 00:00 Intake Total 1410 ml Output Total 1300 ml Balance 110 ml Weight (Pounds): 179 Weight (Ounces): 8.0 Weight (Calculated Kilograms): 81.251464 Constitutional: AAO x 3, well-developed, well-nourished Respiratory: chest expansion is symmetric, rhonchi (scattered) Cardiovascular: regular rate-rhythm Gastrointestional: soft, audible bowel sounds Extremities: No significant edema Neurologic/Psychiatric: grossly intact Skin: normal color, warm/dry Results/Procedures: Labs Laboratory Tests 10/11/19 11:45: Glucometer 403*H 10/11/19 16:30: Glucometer 316H 10/11/19 20:53: Glucometer 331H 10/12/19 05:31: Glucometer 330H 10/12/19 06:13: White Blood Count 5.2, Red Blood Count 4.13L, Hemoglobin 11.4L, Hematocrit 37L, Mean Corpuscular Volume 89, Mean Corpuscular Hemoglobin 28, Mean Corpuscular Hemoglobin Concent 31L, Red Cell Distribution Width 16.8H, Platelet Count 235, Mean Platelet Volume 9.8, Neutrophils (%) (Auto) 84H, Lymphocytes (%) (Auto) 10L , Monocytes (%) (Auto) 6, Eosinophils (%) (Auto) 0, Basophils (%) (Auto) 1, Neutrophils # (Auto) 4.4, Lymphocytes # (Auto) 0.5L, Monocytes # (Auto) 0.3, Eosinophils # (Auto) 0.0, Basophils # (Auto) 0.0, Sodium Level 141, Potassium Level 3.2L, Chloride Level 99, Carbon Dioxide Level 30, Anion Gap 12, Blood Urea Nitrogen 34H, Creatinine 0.78, Estimat Glomerular Filtration Rate > 60, BUN/Creatinine Ratio 44, Glucose Level 299H, Calcium Level 9.1, Phosphorus Level 3.0, Magnesium Level 1.8 10/12/19 11:04: Glucometer 308H Microbiology 10/07/19 Blood Culture - Preliminary, Resulted No growth 10/05/19 Influenza Types A,B Antigen (VICENTE) - Final, Complete 10/05/19 Urine Culture - Final, Complete NO GROWTH A/P: Assessment: Pneumonia - management per Medical services PAF, first documented during pneumonia in December 2015 - has had PAF with RVR during this hosp - currently NSR Chronic stroke prophylaxis with apixaban CAD with h/o Resolute 2.5x12 to mid LCX in May 2012, and Resolute 2.5x12 to dist al LCx in Oct 2012. MPI of January 19, 2019 showed no evidence of ischemia or infarction; LVEF was 94% Echo of December 2018 showed LVEF 60-65%, concentric hypertrophy. Mod MR. PASP approx 45-50mmHg Pulmonary HTN - followed by Dr. Hightower Abdominal aortic and peripheral angiogram of August 2016 did not indicate any significant abdominal aortic aneurysm. No significant renal artery stenosis. No significant peripheral arterial disease involving the circulation of the lower limbs. 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
--- NOTE | 2019-10-11 09:09 | Progress Note - Cardiology ---
Cardiology SOAP Progress Note Subjective: Shortness of breath slowly improving No cp or palp or syncope No swelling Gen weakness present Objective: I&O/Vital Signs 10/10/19 10/10/19 10/10/19 10/10/19 21:15 21:20 22:00 23:00 Pulse 67 75 61 59 Resp 20 20 19 21 B/P (MAP) 125/66 (85) 115/63 (80) Pulse Ox 96 95 94 94 O2 Delivery NIV Bilevel NIV Bilevel NIV Bilevel O2 Flow Rate 30.00 30.00 30.00 30.00 10/11/19 10/11/19 10/11/19 10/11/19 00:00 00:00 00:00 01:00 Temp 36.0 Pulse 60 53 Resp 12 B/P (MAP) 127/68 (87) Pulse Ox 95 O2 Delivery NIV Bilevel NIV Bilevel O2 Flow Rate 30.00 FiO2 30 10/11/19 10/11/19 10/11/19 10/11/19 01:00 02:00 02:31 03:00 Pulse 53 54 55 59 Resp 26 18 B/P (MAP) 120/63 (82) 122/64 (83) 109/65 (80) Pulse Ox 95 96 94 93 O2 Delivery NIV Bilevel NIV Bilevel NIV Bilevel O2 Flow Rate 30.00 30.00 25.00 30.00 10/11/19 10/11/19 10/11/19 10/11/19 03:11 03:50 04:00 05:00 Pulse 67 59 59 Resp 15 27 17 B/P (MAP) 126/65 (85) 129/66 (87) Pulse Ox 92 96 95 O2 Delivery High Flow N/C High Flow N/C High Flow N/C High Flow N/C O2 Flow Rate 5.00 5.00 5.00 5.00 10/11/19 10/11/19 10/11/19 05:34 06:00 07:33 Pulse 57 Resp 15 B/P (MAP) 125/113 (117) Pulse Ox 91 95 O2 Delivery High Flow N/C High Flow N/C High Flow N/C O2 Flow Rate 3.00 3.00 3.00 10/11/19 00:00 Intake Total 1387.5 ml Output Total 1500 ml Balance -112.5 ml Weight (Pounds): 179 Weight (Ounces): 8.0 Weight (Calculated Kilograms): 81.768337 Constitutional: AAO x 3, well-developed, well-nourished Respiratory: chest expansion is symmetric, rhonchi (scattered) Cardiovascular: regular rate-rhythm Gastrointestional: soft, audible bowel sounds Extremities: No significant edema Neurologic/Psychiatric: grossly intact Skin: normal color, warm/dry Results/Procedures: Labs Laboratory Tests 10/10/19 11:56: Glucometer 331H 10/10/19 17:36: Glucometer 390H 10/10/19 23:59: Glucometer 332H 10/11/19 03:15: White Blood Count 6.0, Red Blood Count 4.10L, Hemoglobin 11.4L, Hematocrit 37L, Mean Corpuscular Volume 91, Mean Corpuscular Hemoglobin 28, Mean Corpuscular Hemoglobin Concent 31L, Red Cell Distribution Width 16.7H, Platelet Count 236, Mean Platelet Volume 10.2, Neutrophils (%) (Auto) 83H, Lymphocytes (%) (Auto) 10L, Monocytes (%) (Auto) 7, Eosinophils (%) (Auto) 0, Basophils (%) (Auto) 1, Neutrophils # (Auto) 5.0, Lymphocytes # (Auto) 0.6L, Monocytes # (Auto) 0.4, Eosinophils # (Auto) 0.0, Basophils # (Auto) 0.0, Sodium Level 140, Potassium Level 3.0L, Chloride Level 100, Carbon Dioxide Level 28, Anion Gap 12, Blood Urea Nitrogen 28H, Creatinine 0.82, Estimat Glomerular Filtration Rate > 60, BUN/Creatinine Ratio 34, Glucose Level 296H, Calcium Level 9.4, Phosphorus Level 1.4L, Magnesium Level 1.9 10/11/19 07:30: Blood Gas Puncture Site RT RAD, Blood Gas Patient Temperature 35.9, Arterial Blood pH 7.46H, Arterial Blood Partial Pressure CO2 48H, Arterial Blood Partial Pressure O2 72L, Arterial Blood HCO3 34H, Arterial Blood Total CO2 35.7H, Arterial Blood Oxygen Saturation 95, Arterial Blood Base Excess 9.6H, Hiro Test YES-POS, Blood Gas Ventilator Setting NO, Blood Gas Inspired Oxygen 3 L Microbiology 10/07/19 Blood Culture - Preliminary, Resulted No growth 10/05/19 Influenza Types A,B Antigen (VICENTE) - Final, Complete 10/05/19 Urine Culture - Final, Complete NO GROWTH Laboratory Tests 10/10/19 03:18 10/11/19 03:15 A/P: Assessment: Pneumonia - management per Medical services PAF, first documented during pneumonia in December 2015 - has had PAF with RVR during this hosp - currently NSR Chronic stroke prophylaxis with apixaban CAD with h/o Resolute 2.5x12 to mid LCX in May 2012, and Resolute 2.5x12 to distal LCx in Oct 2012. MPI of January 19, 2019 showed no evidence of ischemia or infarction; LVEF was 94% Echo of December 2018 showed LVEF 60-65%, concentric hypertrophy. Mod MR. PASP approx 45-50mmHg Pulmonary HTN - followed by Dr. Hightower Abdominal aortic and peripheral angiogram of August 2016 did not indicate any significant abdominal aortic aneurysm. No significant renal artery stenosis. No significant peripheral arterial disease involving the circulation of the lower limbs. 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
[2019-10-11] MEDS ORDERED: POTASSIUM PHOSPHATE INJ 30 MM in NS (IVPB) 250 ML IV ONE (09:15)
[2019-10-11] MEDS ORDERED: KCL 20 MEQ TAB (K-DUR) PO NR ×2 (09:15→12:00)
--- NOTE | 2019-10-11 09:19 | Physical Therapy Evaluation ---
PT Evaluation-General Medical Diagnosis Admission Date Oct 05, 2019 at 22:40 Medical Diagnosis: pneumonia, COPD exacerbation Onset Date: Oct 06, 2019 Therapy Diagnosis Therapy Diagnosis: debility/weakness Height/Weight Height (Feet): 5 Height (Inches): 6.00 Weight (Pounds): 179 Weight (Ounces): 8.0 Precautions Precautions/Isolations: Fall Prevention, Standard Precautions Weight Bear Status Right Lower Extremity: Right Weight Bearing/Tolerated Left Lower Extremity: Left Weight Bearing/Tolerated Referral Physician: Katja Reason for Referral: Evaluation/Treatment Medical History Pertinent Medical History: Atrial Fib, Arthritis, CAD, COPD, DM, GERD, HTN, PVD Current History TFR to ICU Reviewed History: Yes Social History Home: Single Level Current Living Status: Spouse Entry Into Home: Stairs Without Railing PT Steps Into Home: 4 Prior Prior Level of Function SCALE: Activities may be completed with or without assistive devices. 7-Spdqksfthu-omrfeqk completes the activity by him/herself with no assistance from a helper. 5-Set-up or Clean-up Assistance-helper sets up or cleans up; patient completes activity. [place] assists only prior to or following the activity. 4-Supervision or Touching Assistance-helper provides verbal cues and/or touching/steadying and/or contact guard assistance as patient completes ac tivity. Assistance may be provided throughout the activity or intermittently. 3-Partial/Moderate Assistance-helper does LESS THAN HALF the effort. [place] lifts, holds or supports trunk or limbs, but provides less than half the effort. 2-Substantial/Maximal Assistance-helper does MORE THAN HALF the effort. [place] lifts or holds trunk or limbs and provides more than half the effort. 9-Asxlmaoep-ciusim does ALL the effort. Patient does none of the effort to complete the activity. Or, the assistance of 2 or more helpers is required for the patient to complete the activity. If activity was not attempted, code reason: 7-Patient Refused. 9-Not Applicable-not attempted and the patient did not perform the activity before the current illness, exacerbation or injury. 10-Not Attempted due to Environmental Limitations-(lack of equipment, weather restraints, etc.). 88-Not Attempted due to Medical Conditions or Safety Concerns. Bed Mobility: 6 Transfers (B,C,W/C): 6 Gait: 6 Stairs: 6 Indoor Mobility (Ambulation): Independent Stairs: Independent Prior Devices Use: Walker (4WW) PT Evaluation-Current Subjective Patient agrees to PT. Objective Patient Orientation: Normal For Age Attachments: Oxygen, Johnson Catheter, IV ROM/Strength ROM Lower Extremities bilateral LE WFL Strength Lower Extremities 3/5 grossly bilateral LE Integumentary/Posture Integumentary refer to nursing notes Bowel Incontinence: No Bladder Incontinence: Johnson Cath Posture WFL Neuromuscular (Tone, Coordination, Reflexes) grossly intact Sensory Hearing: Functional Sensation Right Lower Extremit: Intact Sensation Left Lower Extremity: Intact Transfers Roll Left to Right (QC): 4 Sit to Lying (QC): 4 Lying to Sitting/Side of Bed(Q: 4 Sit to Stand (QC): 4 Chair/Fzg-ls-Dtfxr Xfer(QC): 4 Car Transfer (QC): 10 Gait Does the Patient Walk?: Yes Mode of Locomotion: Walk Anticipated Mode of Locomotion: Walk Walk 10 feet (QC): 4 Walk 50 ft with 2 Turns(QC): 4 Walk 150 ft (QC): 88 Walking 10ft/uneven surface-QC: 10 Distance: 50' Gait Assistive Device: FWW Comments/Gait Description functional gait sequence Wheelchair Training Does the Pt Use a Wheelchair?: No Wheel 50 ft with 2 turns (QC): 9 Wheel 150 ft (QC): 9 Type of Wheelchair: Manual Stairs 1 Step (curb) (QC): 88 4 Steps (QC): 88 12 Steps (QC): 88 Balance Sitting Static: Normal Sitting Dynamic: Normal Standing Static: Fair Standing Dynamic: Fair Picking up an Object (QC): 5 (in seated position) Assessment/Needs 63 y.o. male, will benefit from skilled PT to address functional mobility to improve current LOF to safely return to home at maximum LOF. Rehab Potential: Fair PT Snf Goals Membership Coordinator Goals PT Membership Coordinator Goals Time Frame: Oct 30, 2019 Roll Left & Right (QC): 6 Sit to Lying (QC): 6 Lying-Sitting on Side/Bed(QC): 6 Sit to Stand (QC): 6 Chair/Oby-kx-Lnoqj Xfer(QC): 6 Toilet Transfer (QC): 6 Car Transfer (QC): 10 Does the Patient Walk: Yes Walk 10 feet (QC): 6 Walk 50ft with 2 Turns (QC): 6 Walk 150 ft (QC): 88 Walking 10ft on Uneven Surface: 88 1 Step (curb) (QC): 4 4 Steps (QC): 4 12 Steps (QC): 88 Picking up an Object (QC): 88 Does the Pt use WC or Scooter?: No Type: N/A Type: N/A PT Plan Problem List Problem List: Activity Tolerance, Functional Strength, Gait Treatment/Plan Treatment Plan: Continue Plan of Care Treatment Plan: Bed Mobility, Education, Functional Activity Dominga, Functional Strength, Gait, Safety, Therapeutic Exercise, Transfers Treatment Duration: Oct 30, 2019 Frequency: 6 times per week Estimated Hrs Per Day: .25 hour per day Patient and/or Family Agrees t: Yes Time/GCodes Time In: 810 Time Out: 819 Total Billed Treatment Time: 19 Total Billed Treatment 1 visit GhislaineC 9 min JENNIFER LINTON PT Oct 11, 2019 09:19 POS
--- NOTE | 2019-10-11 09:55 | Occupational Therapy Eval ---
OT Evaluation-General/PLF Medical Diagnosis Admission Date Oct 05, 2019 at 22:40 Medical Diagnosis: pneumonia, COPD exacerbation Onset Date: Oct 06, 2019 Therapy Diagnosis Therapy Diagnosis: impaired ADLs and functional mobility Height/Weight Height (Feet): 5 Height (Inches): 6.00 Weight (Pounds): 179 Weight (Ounces): 8.0 Precautions Precautions/Isolations: Fall Prevention, Standard Precautions Safety Interventions: Reorient-PRN Referral Physician: Katja Referral Reason: Evaluation/Treatment Medical History Pertinent Medical History: Atrial Fib, Arthritis, CAD, COPD, DM, GERD, HTN, PVD Additional Medical History chronic interstitial lung disease - hypersensitivity pneumonitis, HTN, HLD, DMII, CAD s/p stending x2 (2011, 2012), gout, HILDA on c-pap, GERD, hx of AFib wiht RVR, COPD Current History Per H&P: "63 yo M that presented to ER with worsening shortness of breath for the last week. Denies any sick contacts. No oxygen requirement at home. States that he has been using his inhaler more often. + brownish sputum. Denies any fever or chills. Decreased appetite for the last week. Denies missing any doses of medications." Reviewed History: Yes Social History Home: Single Level Current Living Status: Spouse Entry Into Home: Stairs Without Railing Steps Into Home: 4 ADL-Prior Level of Function SCALE: Activities may be completed with or without assistive devices. 2-Vduskvjmzn-gbovruq completes the activity by him/herself with no assistance from a helper. 5-Set-up or Clean-up Assistance-helper sets up or cleans up; patient completes activity. [place] assists only prior to or following the activity. 4-Supervision or Touching Assistance-helper provides verbal cues and/or touching/steadying and/or contact guard assistance as patient completes activity. Assistance may be provided throughout the activity or intermittently. 3-Partial/Moderate Assistance-helper does LESS THAN HALF the effort. [place] lifts, holds or supports trunk or limbs, but provides less than half the effort. 2-Substantial/Maximal Assistance-helper does MORE THAN HALF the effort. [place] lifts or holds trunk or limbs and provides more than half the effort. 4-Ihlnpbqvz-zhhrhq does ALL the effort. Patient does none of the effort to complete the activity. Or, the assistance of 2 or more helpers is required for the patient to complete the activity. If activity was not attempted, code reason: 7-Patient Refused. 9-Not Applicable-not attempted and the patient did not perform the activity before the current illness, exacerbation or injury. 10-Not Attempted due to Environmental Limitations-(lack of equipment, weather restraints, etc.). 88-Not Attempted due to Medical Conditions or Safety Concerns. ADL PLOF Comments Pt reports he was independent with all ADLs except for wiping his buttocks in shower and after BM. He states he has difficulty reaching his feet but has a technology education teacher and sock aide. Pt reports he is able to take a shower and dress himself without assistance. Pt and his report he has fallen a few times in the house. Self Care: Needed Some Help Functional Cognition: Independent DME/Equipment: Tub/Shower DME/Equipment Comments 4 wheeled walker, cane OT Current Status Subjective Pt and present during evaluation. Pt agreeable to OT evaluation/tx this AM. Pt did not verbalize any pain rating. Mental Status/Objective Patient Orientation: Person, Place, Situation When asked what year it is, pt replied "1919" instead of "2018" Attachments: Johnson Catheter, IV, Oxygen, Telemetry Current Glasses/Contacts: Yes Hearing Aids: No Dentures/Partials: No Hand Dominance: Right Upper Extremity ROM BUE shoulder flexion to approximately 90 degrees, pt reports having a rotator cuff repair on his right. He says his arm movements are limited due to back pain. Upper Extremity Coordination WFL Upper Extremity Sensation pt denies tingling/numbness in BUEs Upper Extremity Strength grossly 4/5 MMT ADL-Treatment Eating (QC): 6 (Per pt and report: Pt was able to eat breakfast without assistance. Pt was able to open syrup containers and eat without difficulty.) Oral Hygiene (QC): 7 Shower/Bathe Self (QC): 2 (Sponge bath at recliner. Pt able to wash chest, abdomen, periarea, and LUE, required assistance with RUE due to thoroughness. OT assisted pt with BLEs. Pt declined washing his buttocks on this date, stating he had help with it this AM.) Upper Body Dressing (QC): 2 (Pt required max A to don/doff gown,. OT managed gown around IV lines (LUE) and telemetry and with tying. Pt able to thread gown on RUE.) Lower Body Dressing (QC): 7 On/Off Footwear (QC): 1 (Pt required total assist to don/doff BLE socks.) Toileting Hygiene (QC): 7 Toilet Transfer (QC): 7 Other Treatments Pt provided information about PLOF and home set up. OT educated pt and on safety in the bathroom, recommending use of bath bench due to pt having multiple falls in the house. Pt then completed sponge bath and dressing at recliner. Pt declined standing during this tx, stating he had already had help washing his buttocks this AM. Post OT session, pt seated in recliner, call light in reach and all needs met. Education OT Patient Education: Correct positioning, Energy conservation, Modified ADL techniques, Progress toward Goal/Update tx plan, Purpose of tx/functional activities Teaching Recipient: Patient, Family Teaching Methods: Demonstration, Discussion Response to Teaching: Verbalize Understanding, Return Demonstration OT Guide Dog Trainer Goals Custodial Goals Time Frame: Oct 22, 2019 Eating (QC): 6 Oral Hygiene (QC): 6 Toileting Hygiene (QC): 3 Shower/Bathe Self (QC): 6 Upper Body Dressing (QC): 6 Lower Body Dressing (QC): 6 On/Off Footwear (QC): 6 Additional Goals: 1-Demonstrate ADL Tasks, 2-Verbalize Understanding, 3- ImproveStrength/[place] 1=Demonstrate adherence to instructed precautions during ADL tasks. 2=Patient will verbalize/demonstrate understanding of assistive devices/modifications for ADL. 3=Patient will improve strength/tolerance for activity to enable patient to perform ADL's. OT Education/Plan Problem List/Assessment Assessment: Decreased Activ Tolerance, Decreased UE Strength, Impaired I ADL's, Impaired Self-Care Skills Discharge Recommendations Plan/Recommendations: Continue POC Equpiment Recommendations-D/C: Extended Bath Bench Treatment Plan/Plan of Care Treatment,Training & Education: Yes Patient would benefit from OT for education, treatment and training to promote independence in ADL's, mobility, safety and/or upper extremity function for ADL's. Plan of Care: ADL Retraining, Caregiver Training, Functional Mobility, UE Funct Exercise/Act Treatment Duration: Oct 22, 2019 Frequency: 5 times per week Estimated Hrs Per Day: .25 hour per day Agreement: Yes Rehab Potential: Good Time/GCodes Start Time: 09:18 Stop Time: 09:41 Total Time Billed (hr/min): 23 Billed Treatment Time 1, EVL (10 mins), ADL (13 mins) BARBIE RODRIGUEZ OT Oct 11, 2019 09:55 POS
--- NOTE | 2019-10-11 10:11 | Progress Note - Hospitalist ---
Subjective HPI/CC On Admission Date Seen by Provider: Oct 11, 2019 Time Seen by Provider: 09:30 Subjective/Events-last exam Pt transferring to floor PT and OT ordered Out of bed and in chair On his baseline O2 now Will DC his newman catheter Ate a pretty good breakfast today Review of Systems General: Fatigue Pulmonary: Dyspnea Objective Exam Vital Signs Vital Signs Date Time Temp Pulse Resp B/P (MAP) Pulse Ox O2 Delivery O2 Flow Rate FiO2 10/11/19 16:17 97 High Flow N/C 3.00 10/11/19 16:14 35.9 55 20 139/72 (94) 10/11/19 00:00 30 Capillary Refill : Less Than 3 Seconds General Appearance: No Apparent Distress, WD/WN, Chronically ill HEENT: PERRL/EOMI, Normal ENT Inspection, Pharynx Normal, Moist Mucous Membranes Neck: Full Range of Motion, Normal Inspection, Non Tender, Supple, Carotid Bruit Respiratory: Chest Non Tender, Lungs Clear, No Accessory Muscle Use, No Respiratory Distress, Decreased Breath Sounds Cardiovascular: Regular Rate, Rhythm, No Edema, No Gallop, No JVD, No Murmur, Normal Peripheral Pulses Gastrointestinal: Normal Bowel Sounds, No Organomegaly, No Pulsatile Mass, Non Tender, Soft Back: Normal Inspection, No CVA Tenderness, No Vertebral Tenderness Extremity: Normal Capillary Refill, Normal Inspection, Normal Range of Motion, Non Tender, No Calf Tenderness, No Pedal Edema Neurologic/Psychiatric: Alert, Oriented x3, No Motor/Sensory Deficits, Normal Mood/Affect Skin: Normal Color, Warm/Dry Lymphatic: No Adenopathy Results/Procedures Lab Laboratory Tests 10/11/19 03:15 Patient resulted labs reviewed. Assessment/Plan Assessment and Plan Assess & Plan/Chief Complaint Assessment: Resp failure PNA AECOPD HTN HILDA Plan: Transfer to floor ABX O2 Nebs Critical Care Critically Ill Patient Diagnosis/Problems Diagnosis/Problems (1) Bilateral pneumonia Status: Acute Qualifiers: Pneumonia type: due to unspecified organism Lung location: lower lobe of lung Qualified Codes: J18.1 - Lobar pneumonia, unspecified organism (2) COPD exacerbation Status: Acute (3) Insulin dependent diabetes mellitus with complications Status: Chronic (4) CAD (coronary artery disease) Status: Acute Qualifiers: Coronary Disease-Associated Artery/Lesion type: [place] artery [place] vs. transplanted heart: [place] heart Associated angina: without angina Qualified Codes: I25.10 - Atherosclerotic heart disease of [place] coronary artery without angina pectoris (5) HTN (hypertension) Status: Chronic Qualifiers: Hypertension type: essential hypertension Qualified Codes: I10 - Essential (primary) hypertension (6) Atrial fibrillation Status: Chronic Qualifiers: Atrial fibrillation type: paroxysmal Qualified Codes: I48.0 - Paroxysmal atrial fibrillation Clinical Quality Measures DVT/VTE Risk/Contraindication: Risk Factor Score Per Nursin RFS Level Per Nursing on Admit: 4+=Very High ANASTASIIA SOTO DO Oct 11, 2019 10:11 POS
[2019-10-11] MEDS: cefTRIAXone FOR IV USE 1,000 MG in WATER (STERILE) FOR INJECTION 10 ML IV SCH (10:36)
--- NOTE | 2019-10-11 11:20 | NUR ---
Pastoral care visit.
[2019-10-11] MEDS ORDERED: PIPERACILLIN/TAZOBACTAM (BULK) 4.5 GM in NS (IVPB) 100 ML IV SCH (15:00)
[2019-10-11] MEDS ORDERED: inSUlin ASPART (NovoLOG) 1 UNIT/0.01 ML (CHARGE PER UNIT) ONE (16:30)
[2019-10-11] MEDS: IRON SUCROSE 200 MG/10 ML (VENOFER) VIAL IV NR (19:59)
[2019-10-11] MEDS: ASPIRIN 81 MG CHEW (CHILDREN'S ASA) PO SCH (21:13)
[2019-10-11] MEDS: FENOFIBRATE 134 MG (LOFIBRA) CAPSULE PO SCH (21:13)
[2019-10-11] MEDS: ROSUVASTATIN 20 MG (CRESTOR) TABLET PO SCH (21:13)
[2019-10-11] MEDS: MONTELUKAST 10 MG (SINGULAIR) TAB PO SCH (21:13)
[2019-10-12 00:08] VITALS: BP 137/76
[2019-10-12] MEDS: RT-ALBUTEROL/IPRATROPIUM 3 ML (DUONEB) VIAL IH SCH ×3 (01:34→10:07)
[2019-10-12 04:00] VITALS: BP 129/73
[2019-10-12 06:30] LABS: BASOPHILS % (AUTO) 1 % (0-10); EOSINOPHILS % (AUTO) 0 % (0-10); HEMATOCRIT 37 % (40-54); HEMOGLOBIN 11.4 G/DL (13.3-17.7); LYMPHOCYTES # (AUTO) 0.5 X 10^3 (1.0-4.0); LYMPHOCYTES % (AUTO) 10 % (12-44); MEAN CORPUSCULAR HEMOGLOBIN 28 PG (25-34); MEAN CORPUSCULAR HGB CONC 31 G/DL (32-36); MEAN CORPUSCULAR VOLUME 89 FL (80-99); MEAN PLATELET VOLUME 9.8 FL (7.4-10.4); MONOCYTES # (AUTO) 0.3 X 10^3 (0.0-1.0); MONOCYTES % (AUTO) 6 % (0-12); NEUTROPHILS # (AUTO) 4.4 X 10^3 (1.8-7.8); NEUTROPHILS % (AUTO) 84 % (42-75); PLATELET COUNT 235 10^3/uL (130-400); RED CELL DISTRIBUTION WIDTH 16.8 % (10.0-14.5); WHITE BLOOD COUNT 5.2 10^3/uL (4.3-11.0)
[2019-10-12] MEDS: CATHETER FLUSH 10 ML SYR IV SCH (06:56)
[2019-10-12] MEDS: methylPREDNISolone 40 MG/ML (Solu-MEDROL) VIAL IV SCH (06:56)
[2019-10-12] MEDS: inSUlin ASPART (NovoLOG) 1 UNIT/0.01 ML (CHARGE PER UNIT) SC SCH ×2 (06:56→11:13)
[2019-10-12 06:58] LABS: BUN/CREATININE RATIO 44; CALCIUM 9.1 MG/DL (8.5-10.1); CARBON DIOXIDE 30 MMOL/L (21-32); CHLORIDE 99 MMOL/L (98-107); CREATININE SERUM 0.78 MG/DL (0.60-1.30); GFR ESTIMATED > 60; GLUCOSE 299 MG/DL (70-105); MAGNESIUM 1.8 MG/DL (1.6-2.4); POTASSIUM 3.2 MMOL/L (3.6-5.0); SODIUM 141 MMOL/L (135-145)
[2019-10-12] MEDS: MAGNESIUM 1 GM/100 ML IVPB 100 ML IV SCH (07:38)
[2019-10-12] MEDS: POTASSIUM CL 10MEQ/50ML IVPB 50 ML IV SCH (07:39)
[2019-10-12] MEDS: KCL 20 MEQ TAB (K-DUR) PO SCH (07:43)
[2019-10-12 08:00] VITALS: BP 111/67
[2019-10-12] MEDS: MAGNESIUM OXIDE (MAG-OX)400 MG TAB PO SCH (08:00)
[2019-10-12] MEDS ORDERED: KCL 20 MEQ TAB (K-DUR) PO SCH (08:00)
--- NOTE | 2019-10-12 08:12 | Diagnostic Imaging Report ---
INDICATION: Dyspnea. COMPARISON: 10/11/2019. FINDINGS: Bilateral lower lobe infiltrates greater left are not substantially changed. The heart size upper limits but stable. Small amounts of pleural fluid showed no obvious change. IMPRESSION: No significant change in bilateral lower lobe infiltrates. Dictated by: Dictated on workstation # [id number]
--- NOTE | 2019-10-12 09:10 | Physical Therapy Daily Note ---
PT Daily Note-Current Subjective Pt reports he's hoping to go home this week. He just walked from the restroom so is a bit tired. He is willing to do therapy. Mental Status Patient Orientation: Normal For Age Attachments: Oxygen 4L supplemental Oxygen Transfers SCALE: Activities may be completed with or without assistive devices. 0-Adnmrycywt-fdsdkau completes the activity by him/herself with no assistance from a helper. 5-Set-up or Clean-up Assistance-helper sets up or cleans up; patient completes activity. [place] assists only prior to or following the activity. 4-Supervision or Touching Assistance-helper provides verbal cues and/or touching/steadying and/or contact guard assistance as patient completes activity. Assistance may be provided throughout the activity or intermittently. 3-Partial/Moderate Assistance-helper does LESS THAN HALF the effort. [place] li fts, holds or supports trunk or limbs, but provides less than half the effort. 2-Substantial/Maximal Assistance-helper does MORE THAN HALF the effort. [place] lifts or holds trunk or limbs and provides more than half the effort. 6-Bhkoihwfj-anruxl does ALL the effort. Patient does none of the effort to complete the activity. Or, the assistance of 2 or more helpers is required for the patient to complete the activity. If activity was not attempted, code reason: 7-Patient Refused. 9-Not Applicable-not attempted and the patient did not perform the activity before the current illness, exacerbation or injury. 10-Not Attempted due to Environmental Limitations-(lack of equipment, weather restraints, etc.). 88-Not Attempted due to Medical Conditions or Safety Concerns. Weight Bearing Right Lower Extremity: Right Weight Bearing/Tolerated Left Lower Extremity: Left Weight Bearing/Tolerated Gait Training Gait Assistive Device: FWW Ambulate 150ft with FWW and O2 at 4L. Verbal cues to stay close to walker and stand upright. Instruction for controlled breathing. Pt stable on his feet. Slow with forward flexed posture due to LBP. Exercises Seated Therapy Exercises: Ankle pumps, Long arc quads, Hip flexion, Kicking activity, Hip abd/add Seated Reps: 20 Assessment Current Status: Good Progress Pt improved activity tolerance this date. Increased ambulation distance. Limiting factor was leg and low back fatigue. Pt will benefit from continued activity. Pt has sufficient stability to walk with nursing and family. PT Snf Goals Snf Goals PT Ice Bag Assembler Goals Time Frame: Oct 30, 2019 Roll Left & Right (QC): 6 Sit to Lying (QC): 6 Lying-Sitting on Side/Bed(QC): 6 Sit to Stand (QC): 6 Chair/Osq-lq-Eztzm Xfer(QC): 6 Toilet Transfer (QC): 6 Car Transfer (QC): 10 Does the Patient Walk: Yes Walk 10 feet (QC): 6 Walk 50ft with 2 Turns (QC): 6 Walk 150 ft (QC): 88 Walking 10ft on Uneven Surface: 88 1 Step (curb) (QC): 4 4 Steps (QC): 4 12 Steps (QC): 88 Picking up an Object (QC): 88 Does the Pt use WC or Scooter?: No Type: N/A Type: N/A PT Plan Problem List Problem List: Activity Tolerance, Gait Treatment/Plan Treatment Plan: Continue Plan of Care Treatment Plan: Bed Mobility, Education, Functional Activity Dominga, Functional Strength, Gait, Safety, Therapeutic Exercise, Transfers Treatment Duration: Oct 30, 2019 Frequency: 6 times per week Estimated Hrs Per Day: .25 hour per day Patient and/or Family Agrees t: Yes Time/GCodes Time In: 845 Time Out: 910 Total Billed Treatment Time: 25 Total Billed Treatment visit, gait 15, ex 10 GUERRERO DUNN PT Oct 12, 2019 09:10 POS
[2019-10-12] MEDS: DILTIAZEM 180 MG (CARDIZEM CD) CAP PO SCH (09:19)
[2019-10-12] MEDS: lisINopril 10 MG (PRINIVIL) TABLET PO SCH (09:19)
[2019-10-12] MEDS: meTOprolol TARTRATE 25 MG (LOPRESSOR) TABLET PO SCH (09:19)
[2019-10-12] MEDS: TAMSULOSIN 0.4 MG (FLOMAX) CAP PO SCH (09:19)
[2019-10-12] MEDS: ALLOPURINOL 300 MG (ZYLOPRIM) TAB PO SCH (09:19)
[2019-10-12] MEDS: FLUoxetine HCL 20 MG (PROzac) CAP PO SCH (09:19)
[2019-10-12] MEDS: GABAPENTIN 300 MG (NEURONTIN) CAP PO SCH (09:20)
[2019-10-12] MEDS: PANTOPRAZOLE 20 MG TABLET (PROTONIX) PO SCH (09:20)
[2019-10-12] MEDS: APIXABAN 5 MG (ELIQUIS) TABLET PO SCH (09:20)
[2019-10-12] MEDS: FUROSEMIDE 40 MG/4 ML INJ (LASIX) IVP SCH (09:20)
[2019-10-12] MEDS ORDERED: PRED10TA22 PO (10:25)
[2019-10-12] MEDS ORDERED: DILT180C90 PO (10:25)
[2019-10-12] MEDS ORDERED: METO-333 PO (10:25)
[2019-10-12] MEDS ORDERED: POTA10TA10 PO (10:25)
[2019-10-12] MEDS ORDERED: FURO-125 PO (10:25)
[2019-10-12] MEDS ORDERED: LISI10TA2 PO (10:25)
[2019-10-12] MEDS ORDERED: CEFD300C3 PO (10:25)
--- NOTE | 2019-10-12 10:25 | Occupational Ther Daily Note ---
OT Current Status-Daily Note Subjective Pt seated upright in recliner at start of session, agreeable to OT session with focus on ADLs. Pt reports he just had an accident in his chair and needed to change his gown. He is hoping he will be able to return home soon. ADL-Treatment Therapy Code Descriptions/Definitions Functional [place] Measure: 0=Not Assessed/NA 4=Minimal Assistance 1=Total Assistance 5=Supervision or Setup 2=Maximal Assistance 6=Modified [place] 3=Moderate Assistance 7=Complete IndependenceSCALE: Activities may be completed with or without assistive devices. 7-Gimbcbgbsd-mnjijnz completes the activity by him/herself with no assistance from a helper. 5-Set-up or Clean-up Assistance-helper sets up or cleans up; patient completes activity. [place] assists only prior to or following the activity. 4-Supervision or Touching Assistance-helper provides verbal cues and/or touching/steadying and/or contact guard assistance as patient completes activity. Assistance may be provided throughout the activity or intermittently. 3-Partial/Moderate Assistance-helper does LESS THAN HALF the effort. [place] lifts, holds or supports trunk or limbs, but provides less than half the effort. 2-Substantial/Maximal Assistance-helper does MORE THAN HALF the effort. [place] lifts or holds trunk or limbs and provides more than half the effort. 8-Kidpystzf-wfyluo does ALL the effort. Patient does none of the effort to complete the activity. Or, the assistance of 2 or more helpers is required for the patient to complete the activity. If activity was not attempted, code reason: 7-Patient Refused. 9-Not Applicable-not attempted and the patient did not perform the activity before the current illness, exacerbation or injury. 10-Not Attempted due to Environmental Limitations-(lack of equipment, weather restraints, etc.). 88-Not Attempted due to Medical Conditions or Safety Concerns. Bathing Location: L Arm, R Arm, L Upper Leg, R Upper Leg, Chest, Abdomen, Perineal Area Shower/Bathe Self (QC): 3 (Pt required assistance washing buttocks on this date, he was able to wash BUEs, chest, abdomen, periarea, and upperlegs. He declined washing lower legs at this time. he reports he is able to wash BLE lower legs and feet at home using a long handled sponge.) Upper Body Dressing (QC): 3 (Pt able to don/doff gown with BUEs, requiring assistance only with the tie.) Other Treatment Pt seated in recliner, he was able to wash his periarea, BUEs, chest and abdomen with set up of a wash cloth, he required assistance only with washing buttocks. He then changed his hospital gown. Pt required SBA during stand at W as OT assisted with washing buttocks. Post OT session, pt seated in recliner, call light in reach and all needs met, respiratory therapy present. Education OT Patient Education: Correct positioning, Energy conservation, Modified ADL techniques, Progress toward Goal/Update tx plan, Purpose of tx/functional activities, Transfer techniques Teaching Recipient: Patient Teaching Methods: Discussion Response to Teaching: Verbalize Understanding OT Assistant Director Of Public Works Goals Assistant Director Of Public Works Goals Time Frame: Oct 22, 2019 Eating (QC): 6 Oral Hygiene (QC): 6 Toileting Hygiene (QC): 3 Shower/Bathe Self (QC): 6 Upper Body Dressing (QC): 6 Lower Body Dressing (QC): 6 On/Off Footwear (QC): 6 Additional Goals: 1-Demonstrate ADL Tasks, 2-Verbalize Understanding, 3- ImproveStrength/[place] 1=Demonstrate adherence to instructed precautions during ADL tasks. 2=Patient will verbalize/demonstrate understanding of assistive devices/modifications for ADL. 3=Patient will improve strength/tolerance for activity to enable patient to perform ADL's. OT Education/Plan Problem List/Assessment Assessment: Decreased Activ Tolerance, Decreased UE Strength, Impaired I ADL's, Impaired Self-Care Skills Discharge Recommendations Plan/Recommendations: Continue POC Treatment Plan/Plan of Care Patient would benefit from OT for education, treatment and training to promote independence in ADL's, mobility, safety and/or upper extremity function for ADL's. Plan of Care: ADL Retraining, Caregiver Training, Functional Mobility, UE Funct Exercise/Act Treatment Duration: Oct 22, 2019 Frequency: 5 times per week Estimated Hrs Per Day: .25 hour per day Agreement: Yes Rehab Potential: Good Time/GCodes Start Time: 09:55 Stop Time: 10:05 Total Time Billed (hr/min): 10 Billed Treatment Time 1, ADL BARBIE RODRIGUEZ OT Oct 12, 2019 10:25 POS
--- NOTE | 2019-10-12 10:27 | Discharge Summary ---
Discharge Summary Hospital Course Was the Problem List Reviewed?: Yes Problems/Dx: (1) Bilateral pneumonia Status: Acute Qualifiers: Qualified Codes: J18.1 - Lobar pneumonia, unspecified organism (2) COPD exacerbation Status: Acute (3) Insulin dependent diabetes mellitus with complications Status: Chronic (4) CAD (coronary artery disease) Status: Acute Qualifiers: Qualified Codes: I25.10 - Atherosclerotic heart disease of [place] coronary artery without angina pectoris (5) HTN (hypertension) Status: Chronic Qualifiers: Qualified Codes: I10 - Essential (primary) hypertension (6) Atrial fibrillation Status: Chronic Qualifiers: Qualified Codes: I48.0 - Paroxysmal atrial fibrillation Hospital Course Date of Admission: Oct 05, 2019 at 22:40 Admission Diagnosis : Family Physician/Provider: Usha Wilson Date of Discharge: 10/12/19 Discharge Diagnosis: B/L PNA, AF, OAC, HTN, ARF Hospital Course: Hospital course: Pt had an uncomplicated hospital course for seven days, he was placed in the ICU for B/L pneumonia and COPD exacerbation, he was aggressively treated by Dr. Hightower, Pt tolerated aggressive medication well and ultimately was back to his baseline, maintained on oxygen 24/7 and multiple meds were initiated by cardiology for A-FIB, maintained on oral anticoagulation for stroke prophylaxis but overall he did well and was found to be stable for discharge. Labs and Pending Lab Test: Laboratory Tests 10/11/19 11:45: Glucometer 403*H 10/11/19 16:30: Glucometer 316H 10/11/19 20:53: Glucometer 331H 10/12/19 05:31: Glucometer 330H 10/12/19 06:13: White Blood Count 5.2, Red Blood Count 4.13L, Hemoglobin 11.4L, Hematocrit 37L, Mean Corpuscular Volume 89, Mean Corpuscular Hemoglobin 28, Mean Corpuscular Hemoglobin Concent 31L, Red Cell Distribution Width 16.8H, Platelet Count 235, Mean Platelet Volume 9.8, Neutrophils (%) (Auto) 84H, Lymphocytes (%) (Auto) 10L , Monocytes (%) (Auto) 6, Eosinophils (%) (Auto) 0, Basophils (%) (Auto) 1, Neutrophils # (Auto) 4.4, Lymphocytes # (Auto) 0.5L, Monocytes # (Auto) 0.3, Eosinophils # (Auto) 0.0, Basophils # (Auto) 0.0, Sodium Level 141, Potassium Level 3.2L, Chloride Level 99, Carbon Dioxide Level 30, Anion Gap 12, Blood Urea Nitrogen 34H, Creatinine 0.78, Estimat Glomerular Filtration Rate > 60, BUN/Creatinine Ratio 44, Glucose Level 299H, Calcium Level 9.1, Phosphorus Level 3.0, Magnesium Level 1.8 Microbiology 10/07/19 Blood Culture - Preliminary, Resulted No growth 10/05/19 Influenza Types A,B Antigen (VICENTE) - Final, Complete 10/05/19 Urine Culture - Final, Complete NO GROWTH Home Meds Active Potassium Chloride 10 Meq Tablet.er 10 Meq PO DAILY Lasix (Furosemide) 20 Mg Tablet 20 Mg PO Q48H Prednisone 10 Mg Tab.ds.pk 10 Mg PO DAILY Take 6 tabs(60mg)daily,decrease by 1 tab(10MG)daily. Cefdinir 300 Mg Capsule 300 Mg PO BID Lisinopril 10 Mg Tablet 10 Mg PO DAILY@0900 Diltiazem 24Hr Cd (Diltiazem HCl) 180 Mg Cap.er.24h 180 Mg PO DAILY Metoprolol Tartrate 25 Mg Tablet 25 Mg PO BID Reported Fluticasone-Salmeterol 250-50 (Fluticasone Propion/Salmeterol) 1 Each Blst.w.dev 1 Puff INH BID LAST FILLED 05-01-19 Farxiga (Dapagliflozin Propanediol) 5 Mg Tablet 5 Mg PO DAILY Tolterodine Tartrate ER (Tolterodine Tartrate) 4 Mg Cap.er.24h 4 Mg PO DAILY Lantus Solostar (Insulin Glargine,Hum.rec.anlog) 100 Unit/1 Ml Insuln.pen 30 Units SC DAILY LAST FILLED 04-28-19 Aspirin 81 Mg Tab.chew 81 Mg PO HS Vitamin B-12 (Cyanocobalamin (Vitamin B-12)) 1,000 Mcg Tablet 1,000 Mcg PO DAILY Magox 400 (Magnesium Oxide) 400 Mg Tablet 400 Mg PO DAILY Fenofibrate (Fenofibrate Nanocrystallized) 145 Mg Tablet 145 Mg PO HS [place] (Exenatide) 10 Mcg/0.04 Ml Pen.injctr 10 Mcg SC BID LAST FILLED 07-19-19 Ferrous Sulfate 325 Mg Tablet 325 Mg PO HS Rosuvastatin Calcium 20 Mg Tablet 20 Mg PO HS Metformin HCl ER (Metformin HCl) 500 Mg Tab.er.24h 500 Mg PO BID Flomax (Tamsulosin HCl) 0.4 Mg Cap 0.4 Mg PO DAILY Prednisone 10 Mg Tab 10 Mg PO DAILY Eliquis (Apixaban) 5 Mg Tablet 5 Mg PO BID Albuterol Sulfate 2.5 Mg/3 Ml Vial.neb 2.5 Mg IH Q4H PRN Potassium (Potassium Gluconate) 99 Mg Tablet 99 Mg PO DAILY Fish Oil 1,000 mg Capsule ([place] 3 Polyunsat Fatty Acids) 1,000 Mg Cap 1,000 Mg PO BID Montelukast Sodium 10 Mg Tablet 10 Mg PO HS Metoprolol Succinate 25 Mg Tab.er.24h 25 Mg PO HS Allopurinol 300 Mg Tablet 300 Mg PO BID Fluticasone Propionate 16 Gm Mccarley.susp 2 Sprays NS BID PRN Glimepiride 4 Mg Tablet 4 Mg PO DAILY Fluoxetine HCl 20 Mg Capsule 40 Mg PO DAILY TAKES 2 (20MG) CAPSULES Omeprazole 20 Mg Capsule.dr 20 Mg PO DAILY Lisinopril-Hctz 10-12.5 mg Tab (Lisinopril/Hydrochlorothiazide) 1 Each Tablet 1 Tab PO DAILY Gabapentin 300 Mg Capsule 300 Mg PO BID Assessment/Pt Instructions [facility] 1 week Discharge Planning: <30 minutes discharge planning Discharge Instructions Discharge Diet: Cardiac Diet Activity as Tolerated: Yes Discharge Physical Examination Vital Signs Vital Signs Date Time Temp Pulse Resp B/P (MAP) Pulse Ox O2 Delivery O2 Flow Rate FiO2 10/12/19 10:08 94 High Flow N/C 3.00 10/12/19 08:00 36.3 68 16 111/67 (82) 10/11/19 00:00 30 General Appearance: No Apparent Distress, WD/WN Respiratory: Lungs Clear, Decreased Breath Sounds Cardiovascular: Regular Rate, Rhythm Neurologic/Psychiatric: Alert, Oriented x3, No Motor/Sensory Deficits, Normal Mood/Affect Allergies: Coded Allergies: atorvastatin (Verified Allergy, Mild, 03/26/17) Patient states that his bones ached and he wasn't able to tolerate it. Discharge Summary Date of Admission Oct 05, 2019 at 22:40 Date of Discharge Discharge Date: Oct 12, 2019 Discharge Diagnosis Assessment: Resp failure PNA AECOPD HTN HILDA Plan: Transfer to floor ABX O2 Nebs (1) Bilateral pneumonia Status: Acute Qualifiers: Qualified Codes: J18.1 - Lobar pneumonia, unspecified organism (2) COPD exacerbation Status: Acute (3) Insulin dependent diabetes mellitus with complications Status: Chronic (4) CAD (coronary artery disease) Status: Acute Qualifiers: Qualified Codes: I25.10 - Atherosclerotic heart disease of [place] coronary artery without angina pectoris (5) HTN (hypertension) Status: Chronic Qualifiers: Qualified Codes: I10 - Essential (primary) hypertension (6) Atrial fibrillation Status: Chronic Qualifiers: Qualified Codes: I48.0 - Paroxysmal atrial fibrillation Clinical Quality Measures DVT/VTE Risk/Contraindication: Risk Factor Score Per Nursin RFS Level Per Nursing on Admit: 4+=Very High ANASTASIIA SOTO DO Oct 12, 2019 10:27 POS
[2019-10-12] MEDS: cefTRIAXone FOR IV USE 1,000 MG in WATER (STERILE) FOR INJECTION 10 ML IV SCH (11:11)
--- NOTE | 2019-10-12 11:23 | Progress Note - Cardiology ---
Cardiology SOAP Progress Note Subjective: Sitting up in recliner at the bedside. States he is feeling better. Objective: I&O/Vital Signs 10/12/19 10/12/19 10/12/19 10/12/19 00:08 04:00 06:31 08:00 Temp 35.9 36.0 36.3 Pulse 63 60 68 Resp 18 20 16 B/P (MAP) 137/76 (96) 129/73 (91) 111/67 (82) Pulse Ox 98 98 97 98 O2 Delivery NIV CPAP NIV CPAP NIV CPAP High Flow N/C O2 Flow Rate 3.00 4.00 10/12/19 10/12/19 09:00 10:08 Pulse Ox 94 O2 Delivery High Flow N/C High Flow N/C O2 Flow Rate 5.03 3.00 10/12/19 00:00 Intake Total 1410 ml Output Total 1300 ml Balance 110 ml Weight (Pounds): 179 Weight (Ounces): 8.0 Weight (Calculated Kilograms): 81.741541 Constitutional: AAO x 3, well-developed, well-nourished Respiratory: chest expansion is symmetric, rhonchi (scattered) Cardiovascular: regular rate-rhythm Gastrointestional: soft, audible bowel sounds Extremities: No significant edema Neurologic/Psychiatric: grossly intact Skin: normal color, warm/dry Results/Procedures: Labs Laboratory Tests 10/11/19 11:45: Glucometer 403*H 10/11/19 16:30: Glucometer 316H 10/11/19 20:53: Glucometer 331H 10/12/19 05:31: Glucometer 330H 10/12/19 06:13: White Blood Count 5.2, Red Blood Count 4.13L, Hemoglobin 11.4L, Hematocrit 37L, Mean Corpuscular Volume 89, Mean Corpuscular Hemoglobin 28, Mean Corpuscular Hemoglobin Concent 31L, Red Cell Distribution Width 16.8H, Platelet Count 235, Mean Platelet Volume 9.8, Neutrophils (%) (Auto) 84H, Lymphocytes (%) (Auto) 10L , Monocytes (%) (Auto) 6, Eosinophils (%) (Auto) 0, Basophils (%) (Auto) 1, Neutrophils # (Auto) 4.4, Lymphocytes # (Auto) 0.5L, Monocytes # (Auto) 0.3, Eosinophils # (Auto) 0.0, Basophils # (Auto) 0.0, Sodium Level 141, Potassium Level 3.2L, Chloride Level 99, Carbon Dioxide Level 30, Anion Gap 12, Blood Urea Nitrogen 34H, Creatinine 0.78, Estimat Glomerular Filtration Rate > 60, BUN/Creatinine Ratio 44, Glucose Level 299H, Calcium Level 9.1, Phosphorus Level 3.0, Magnesium Level 1.8 10/12/19 11:04: Microbiology 10/07/19 Blood Culture - Preliminary, Resulted No growth 10/05/19 Influenza Types A,B Antigen (VICENTE) - Final, Complete 10/05/19 Urine Culture - Final, Complete NO GROWTH Laboratory Tests 10/11/19 03:15 10/12/19 06:13 Procedures NAME: AMIRA F[facility]EMAN [facility] REC#: [id number] PT STATUS: ADM IN : 1955 PHYSICIAN: DOUG HIGHTOWER DO ADMIT DATE: 10/05/19 Signed Date of Exam:10/12/19 CHEST 1 VIEW, AP/PA ONLY INDICATION: Dyspnea. COMPARISON: 10/11/2019. FINDINGS: Bilateral lower lobe infiltrates greater left are not substantially changed. The heart size upper limits but stable. Small amounts of pleural fluid showed no obvious change. IMPRESSION: No significant change in bilateral lower lobe infiltrates. Dictated by: Dictated on workstation # [id number] Dict: 10/12/1903 Trans: 10/12/19925 [id number] Interpreted by: MAGED BOLES Electronically signed by: MAGED BOLES 10/12/19925 A/P: Assessment: Pneumonia - management per Medical services PAF, first documented during pneumonia in December 2015 - has had PAF with RVR during this hosp - currently NSR Chronic stroke prophylaxis with apixaban CAD with h/o Resolute 2.5x12 to mid LCX in May 2012, and Resolute 2.5x12 to distal LCx in Oct 2012. MPI of January 19, 2019 showed no evidence of ischemia or infarction; LVEF was 94% Echo of December 2018 showed LVEF 60-65%, concentric hypertrophy. Mod MR. PASP approx 45-50mmHg Pulmonary HTN - followed by Dr. Hightower Abdominal aortic and peripheral angiogram of August 2016 did not indicate any significant abdominal aortic aneurysm. No significant renal artery stenosis. No significant peripheral arterial disease involving the circulation of the lower limbs. 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
[2019-10-12 12:42] VITALS: BP 111/67
--- NOTE | 2019-10-12 13:00 | NUR ---
PETEAMIRA demonstrates understanding of discharge instructions and accurately returns instructions upon questioning. Copy of Post-Discharge Instructions and Medication Discharge Instructions given to pt. PETEAMIRA is able to manage continuing needs after discharge. Patients belongings returned to pt. Skin dry and intact; no breakdown noted. Patient discharged from [facility] on 10/12/19 at 1242. PETEAMIRA left floor via , accompanied by Staff and .
--- NOTE | 2019-10-12 13:20 | Progress Note - Cardiology ---
Cardiology SOAP Progress Note Subjective: Shortness of breath better No cp or palp or syncope Gen weakness Objective: I&O/Vital Signs 10/12/19 10/12/19 10/12/19 10/12/19 04:00 06:31 08:00 09:00 Temp 36.0 36.3 Pulse 60 68 Resp 20 16 B/P (MAP) 129/73 (91) 111/67 (82) Pulse Ox 98 97 98 O2 Delivery NIV CPAP NIV CPAP High Flow N/C High Flow N/C O2 Flow Rate 3.00 4.00 5.03 10/12/19 10/12/19 10:08 12:42 Temp 36.3 Pulse 68 Resp 16 B/P (MAP) 111/67 Pulse Ox 94 94 O2 Delivery High Flow N/C Nasal Cannula O2 Flow Rate 3.00 3.00 10/12/19 00:00 Intake Total 1410 ml Output Total 1300 ml Balance 110 ml Weight (Pounds): 179 Weight (Ounces): 8.0 Weight (Calculated Kilograms): 81.982666 Constitutional: AAO x 3, well-developed, well-nourished Respiratory: chest expansion is symmetric, rhonchi (scattered) Cardiovascular: regular rate-rhythm Gastrointestional: soft, audible bowel sounds Extremities: No significant edema Neurologic/Psychiatric: grossly intact Skin: normal color, warm/dry Results/Procedures: Labs Laboratory Tests 10/11/19 16:30: Glucometer 316H 10/11/19 20:53: Glucometer 331H 10/12/19 05:31: Glucometer 330H 10/12/19 06:13: White Blood Count 5.2, Red Blood Count 4.13L, Hemoglobin 11.4L, Hematocrit 37L, Mean Corpuscular Volume 89, Mean Corpuscular Hemoglobin 28, Mean Corpuscular Hemoglobin Concent 31L, Red Cell Distribution Width 16.8H, Platelet Count 235, Mean Platelet Volume 9.8, Neutrophils (%) (Auto) 84H, Lymphocytes (%) (Auto) 10L , Monocytes (%) (Auto) 6, Eosinophils (%) (Auto) 0, Basophils (%) (Auto) 1, Neutrophils # (Auto) 4.4, Lymphocytes # (Auto) 0.5L, Monocytes # (Auto) 0.3, Eosinophils # (Auto) 0.0, Basophils # (Auto) 0.0, Sodium Level 141, Potassium Level 3.2L, Chloride Level 99, Carbon Dioxide Level 30, Anion Gap 12, Blood Urea Nitrogen 34H, Creatinine 0.78, Estimat Glomerular Filtration Rate > 60, BUN/Creatinine Ratio 44, Glucose Level 299H, Calcium Level 9.1, Phosphorus Level 3.0, Magnesium Level 1.8 10/12/19 11:04: Glucometer 308H Microbiology 10/07/19 Blood Culture - Preliminary, Resulted No growth 10/05/19 Influenza Types A,B Antigen (VICENTE) - Final, Complete 10/05/19 Urine Culture - Final, Complete NO GROWTH Laboratory Tests 10/11/19 03:15 10/12/19 06:13 A/P: Assessment: Pneumonia - management per Medical services PAF, first documented during pneumonia in December 2015 - has had PAF with RVR during this hosp - currently NSR Chronic stroke prophylaxis with apixaban CAD with h/o Resolute 2.5x12 to mid LCX in May 2012, and Resolute 2.5x12 to distal LCx in Oct 2012. MPI of January 19, 2019 showed no evidence of ischemia or infarction; LVEF was 94% Echo of December 2018 showed LVEF 60-65%, concentric hypertrophy. Mod MR. PASP approx 45-50mmHg Pulmonary HTN - followed by Dr. Hightower Abdominal aortic and peripheral angiogram of August 2016 did not indicate any significant abdominal aortic aneurysm. No significant renal artery stenosis. No significant peripheral arterial disease involving the circulation of the lower limbs. 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
[2019-10-13] MEDS ORDERED: FUROSEMIDE 40 MG (LASIX) TAB PO SCH (09:00)
== END 2019-10-12 12:42 | disposition home or self-care (01) | DRG 193 ==
LOC: EDUNIT# 20:30 → ER 20:31 → UNDOADMOB 21:50 → CSD 21:50 → ICU 22:40 → 4TH 10-06 10:04 → ICU 10-08 08:03 → 4TH 10-11 13:55
PROVIDERS: ADMIT Family Medicine; ATTEND Family Medicine
DX: J18.1 Lobar pneumonia, unspecified organism (principal); J44.1 Chronic obstructive pulmonary disease with (acute) exacerbation; J44.0 Chronic obstructive pulmonary disease with (acute) lower respiratory infection; J96.20 Acute and chronic respiratory failure, unspecified whether with hypoxia or hypercapnia; J67.2 Bird fancier's lung; I95.9 Hypotension, unspecified; I10 Essential (primary) hypertension; I48.0 Paroxysmal atrial fibrillation; I34.0 Nonrheumatic mitral (valve) insufficiency; I27.20 Pulmonary hypertension, unspecified; D64.9 Anemia, unspecified; G47.33 Obstructive sleep apnea (adult) (pediatric); I25.10 Atherosclerotic heart disease of native coronary artery without angina pectoris; E78.5 Hyperlipidemia, unspecified; E11.51 Type 2 diabetes mellitus with diabetic peripheral angiopathy without gangrene; M10.9 Gout, unspecified; K21.9 Gastro-esophageal reflux disease without esophagitis; M54.9 Dorsalgia, unspecified; M19.91 Primary osteoarthritis, unspecified site; F41.9 Anxiety disorder, unspecified; F32.9 Major depressive disorder, single episode, unspecified; R91.8 Other nonspecific abnormal finding of lung field; Z79.01 Long term (current) use of anticoagulants; Z87.891 Personal history of nicotine dependence; Z95.5 Presence of coronary angioplasty implant and graft; Z99.81 Dependence on supplemental oxygen
CPT/HCPCS: 36415; 36600; 71045; 71046; 80048; 80053; 80202; 81000; 82728; 82805; 82947; 82962; 83036; 83540; 83605; 83735; 83880; 84100; 85025; 85610; 85730; 86141; 87040; 87077; 87081; 87088; 87804; 93005; 94640; 94660; 94760; 96361; 96365

== ENCOUNTER → 2019-11-12 | Outpatient (CLI) | payer MEDICARE, BC ==
[~2019-11-12] MED LIST changes: +ASPI-999 PO; +CYAN-41 PO; +DAPA5TAB PO; +DILT-28 PO; +EXEN10PE3 SC; +FENO145T37 PO; +FERR325T18 PO; -FLUO20CA25 PO; +FLUO20CA45 PO; +FLUT1BLS12 INH; +FURO-125 PO; -GLIM4TAB PO; +GLIM4TAB3 PO; -INDO25CA15 PO; +INDO25CA99 PO; +INSU100I10 SC; +LISI10TA2 PO; +LISI1TAB29 PO; -LISI1TAB6 PO; -MAGN400T6 PO; +MAGN400T8 PO; +METF500T19 PO; +METO-333 PO; -METO-387 PO; +MTP25TSR PO; +OMEP-280 PO; -OMEP20CA13 PO; -PIPERACILLIN/TAZO 4.5 GM/NS 100 ML IV SCH; +POTA10TA10 PO; +PRD10T PO; +TMSL.4C PO; +TOLT4CAP13 PO; -TRAM50TA2 PO; +TRM50T PO
[2019-11-12 11:57] LABS: BASOPHILS # (AUTO) 0.1 10^3/uL (0.0-0.1); BASOPHILS % (AUTO) 1 % (0-10); EOSINOPHILS # (AUTO) 0.5 10^3/uL (0.0-0.3); EOSINOPHILS % (AUTO) 5 % (0-10); HEMATOCRIT 42 % (40-54); HEMOGLOBIN 12.6 G/DL (13.3-17.7); LYMPHOCYTES # (AUTO) 1.9 X 10^3 (1.0-4.0); LYMPHOCYTES % (AUTO) 21 % (12-44); MEAN CORPUSCULAR HEMOGLOBIN 28 PG (25-34); MEAN CORPUSCULAR HGB CONC 30 G/DL (32-36); MEAN CORPUSCULAR VOLUME 94 FL (80-99); MEAN PLATELET VOLUME 9.6 FL (7.4-10.4); MONOCYTES # (AUTO) 0.9 X 10^3 (0.0-1.0); MONOCYTES % (AUTO) 10 % (0-12); NEUTROPHILS # (AUTO) 5.7 X 10^3 (1.8-7.8); NEUTROPHILS % (AUTO) 63 % (42-75); PLATELET COUNT 303 10^3/uL (130-400); RED CELL DISTRIBUTION WIDTH 18.1 % (10.0-14.5)
--- NOTE | 2019-11-12 12:28 | Diagnostic Imaging Report ---
INDICATION: Pneumonia, follow-up. TIME OF EXAM: 12:09 p.m. COMPARISON: Correlation is made with prior chest from 10/12/2019. FINDINGS: Bibasilar infiltrates are noted. Infiltrate in the left base does appear to be improved when compared with one month earlier. The right base has not significantly changed. No effusion is seen. Upper lung payan are clear. There is no pneumothorax. IMPRESSION: Bibasilar infiltrates which appear to be mildly improved in the left base when compared with exam from one month earlier. Dictated by: Dictated on workstation # [id number]
== END ==
LOC: RAD 11:03
PROVIDERS: ATTEND Nurse Practitioner Family
DX: J44.0 Chronic obstructive pulmonary disease with (acute) lower respiratory infection (principal); J18.9 Pneumonia, unspecified organism
CPT/HCPCS: 36415; 71046; 85025

== ENCOUNTER 2019-11-26 20:31 | Inpatient (IN) | payer MEDICARE ==
[~2019-11-26] VITALS: Ht 167 cm; Wt 78.6 kg
[2019-11-26] MEDS ORDERED: NS IV 1000 ML 1,000 ML IV SCH (20:56)
[2019-11-26] MEDS ORDERED: DEXAMETHASONE 4 MG/ML SDV (DECADRON) IH ONE ×2 (21:00→22:45)
[2019-11-26] MEDS ORDERED: methylPREDNISolone 125 MG (Solu-MEDROL) VIAL IVP ONE (21:00)
[2019-11-26] MEDS ORDERED: CEFEPIME INJECTION 2,000 MG in WATER (STERILE) FOR INJECTION 10 ML IV ONE (21:00)
[2019-11-26] MEDS ORDERED: RT-ALBUTEROL/IPRATROPIUM 3 ML (DUONEB) VIAL INH ONE ×2 (21:00→22:45)
[2019-11-26 21:12] LABS: BASOPHILS % (AUTO) 1 % (0-10); EOSINOPHILS # (AUTO) 0.2 10^3/uL (0.0-0.3); EOSINOPHILS % (AUTO) 4 % (0-10); HEMATOCRIT 43 % (40-54); HEMOGLOBIN 13.2 G/DL (13.3-17.7); LYMPHOCYTES # (AUTO) 0.8 X 10^3 (1.0-4.0); LYMPHOCYTES % (AUTO) 16 % (12-44); MEAN CORPUSCULAR HEMOGLOBIN 29 PG (25-34); MEAN CORPUSCULAR HGB CONC 31 G/DL (32-36); MEAN CORPUSCULAR VOLUME 96 FL (80-99); MEAN PLATELET VOLUME 9.9 FL (7.4-10.4); MONOCYTES # (AUTO) 0.6 X 10^3 (0.0-1.0); MONOCYTES % (AUTO) 11 % (0-12); NEUTROPHILS # (AUTO) 3.4 X 10^3 (1.8-7.8); NEUTROPHILS % (AUTO) 68 % (42-75); PLATELET COUNT 67 10^3/uL (130-400); RED CELL DISTRIBUTION WIDTH 18.7 % (10.0-14.5); WHITE BLOOD COUNT 5.1 10^3/uL (4.3-11.0)
[2019-11-26 21:15] LABS: BILIRUBIN,URINE NEGATIVE (NEGATIVE); CLARITY,URINE CLEAR; COLOR,URINE YELLOW; GLUCOSE, URINE (UA) 3+ (NEGATIVE); KETONES,URINE NEGATIVE (NEGATIVE); LEUKOCYTE ESTERASE ,URINE NEGATIVE (NEGATIVE); NITRITE,URINE NEGATIVE (NEGATIVE); PH,URINE 7.5 (5-9); PROTEIN,URINE NEGATIVE (NEGATIVE)
[2019-11-26] MEDS ORDERED: ONDANSETRON 4 MG/2 ML (SDV) Z0FRAN IVP ONE (21:15)
[2019-11-26] MEDS ORDERED: LORazepam INJ 2 MG/ML (ATIVAN) VIAL IVP ONE (21:15)
[2019-11-26 21:28] LABS: AMPHETAMINE SCREEN, URINE NEGATIVE (NEGATIVE); BARBITURATE SCREEN URINE NEGATIVE (NEGATIVE); BENZODIAZEPINES SCREEN URINE NEGATIVE (NEGATIVE); CANNABINOID SCREEN, URINE NEGATIVE (NEGATIVE); COCAINE SCREEN URINE NEGATIVE (NEGATIVE); METHADONE STAT NEGATIVE (NEGATIVE); METHAMPHETAMINE SCREEN URINE S NEGATIVE (NEGATIVE); OPIATE SCREEN URINE POSITIVE (NEGATIVE); OXYCODONE STAT NEGATIVE (NEGATIVE); PROPOXYPHENE STAT NEGATIVE (NEGATIVE); TRICYCLIC ANTIDEPRESSANTS SCRE NEGATIVE (NEGATIVE)
--- NOTE | 2019-11-26 21:28 | Diagnostic Imaging Report ---
INDICATION: Shortness of air. COMPARISON: November 12, 2019. TECHNIQUE: Single radiograph of the chest dated November 26, 2019. FINDINGS: The cardiac silhouette is enlarged. Central pulmonary vascular congestion is present. Extensive bibasilar infiltrates are present, left greater than right. These have significantly worsened since the prior examination, particularly within the left lung base. Tiny left pleural effusion. No significant right pleural effusion. No pneumothorax. No acute osseous abnormality. Surgical changes within the right shoulder. IMPRESSION: 1. Extensive bibasilar pulmonary infiltrates, left greater than right. This is slightly worsened since the prior examination from 11/12/2019. 2. Persistent cardiomegaly with mild central pulmonary vascular congestion. Dictated by: Dictated on workstation # [id number]
[2019-11-26 21:29] LABS: INR 1.1 (0.8-1.4); PROTHROMBIN TIME PATIENT 14.2 SEC (12.2-14.7)
[2019-11-26 21:30] LABS: RBC,URINE 0-2 /HPF
[2019-11-26 21:31] LABS: BACTERIA,URINE TRACE /HPF
[2019-11-26 21:33] LABS: ABG BASE EXCESS 0.4 MMOL/L (-2.5-2.5); ABG OXYGEN SATURATION 95 % (94-100); ABG PCO2 41 MMHG (35-45); ABG PO2 73 MMHG (79-93); ABG TCO2 25.9 MMOL/L (21.0-31.0)
[2019-11-26 21:35] LABS: ALLENS TEST POSITIVE; INSPIRED O2 5; PATIENT TEMP 37.1; VENTILATOR NO
[2019-11-26 21:39] LABS: ALANINE AMINOTRANSFERASE 84 U/L (0-55); ALBUMIN 3.6 GM/DL (3.2-4.5); ALKALINE PHOSPHATASE 79 U/L (40-136); BILIRUBIN,TOTAL 0.6 MG/DL (0.1-1.0); BUN/CREATININE RATIO 20; CARBON DIOXIDE 20 MMOL/L (21-32); CHLORIDE 101 MMOL/L (98-107); CREATININE SERUM 0.64 MG/DL (0.60-1.30); GFR ESTIMATED > 60; GLUCOSE 219 MG/DL (70-105); MAGNESIUM 1.5 MG/DL (1.6-2.4); POTASSIUM 3.8 MMOL/L (3.6-5.0); SODIUM 136 MMOL/L (135-145); TOTAL PROTEIN 6.7 GM/DL (6.4-8.2)
[2019-11-26] MEDS ORDERED: ENOXAPARIN 100 MG/1 ML (LOVENOX) SYR SC ONE (21:45)
[2019-11-26] MEDS ORDERED: OSELTAMIVIR 75 MG (TAMIFLU) CAPSULE PO ONE (21:45)
[2019-11-26] MEDS: MAGNESIUM 1 GM/100 ML IVPB 100 ML IV SCH ×2 (21:51→23:20)
--- NOTE | 2019-11-26 22:08 | ED Respiratory ---
General Chief Complaint: Respiratory Problems Stated Complaint: SOB, Nursing Triage Note: soa, chills today Source: patient, old records, spouse History of Present Illness Date Seen by Provider: Nov 26, 2019 Time Seen by Provider: 20:50 Initial Comments PT ARRIVES VIA POV FROM HOME WITH C/O SHORTNESS OF BREATH--PT HAS COPD AND "PIGEON OR URIBE'S LUNG" / INTERSTITIAL LUNG DISEASE AND WEARS HOME O2 AT 3 1/2 L/NC CONTINUOUSLY, BUT HAD TO INCREASE IT TO 5L/NC TODAY--SHORTNESS OF BREATH IS MUCH WORSE TODAY/ALL DAY PT HAD ALBUTEROL NEB TREATMENT AT 1600, BUT HAS NOT USED ANY INHALERS TODAY HAS HAD INCREASED COUGH TODAY PT HAS ALSO HAD SUBJECTIVE FEVER AND CHILLS TODAY--HAS NOT TAKEN ANYTHING FOR THOSE SYMPTOMS NO CHEST PAIN NO SWELLING IN LEGS / FEET HAS BEEN SICK FOR THE LAST WEEK WITH "BRONCHITIS" --STATES HER FLU TEST WAS NEGATIVE. BOTH PT AND HAVE HAD FLU SHOTS THIS SEASON, WELL PNEUMONIA VACCINES. PT WAS HOSPITALIZED 10/05-10/14 FOR PNEUMONIA, AND HAS HAD MULTIPLE ADMITS FOR SAME, WELL OTHER MEDICAL PROBLEMS PT ALSO HAS CHRONIC ATRIAL FIBRILLATION AND IS ON ELIQUIS--HAS NOT HAD PM DOSE. PT HAS CAD WITH STENTS X 2 PT IS INSULIN DEPENDENT DIABETIC. HAS NOT HAD ANY PM DOSES OF MEDICATIONS PCP: [facility] [employer] E[employer]OMIST:DR. MCCORMICK LASER SPECIALIST: DR. SAMUEL Allergies and Home Medications Allergies Coded Allergies: atorvastatin (Verified Allergy, Mild, 03/26/17) Patient states that his bones ached and he wasn't able to tolerate it. Home Medications Albuterol Sulfate 2.5 Mg/3 Ml Vial.neb, 2.5 MG IH Q4H PRN for SHORTNESS OF BREATH, (Reported) Allopurinol 300 Mg Tablet, 300 MG PO BID, (Reported) Apixaban 5 Mg Tablet, 5 MG PO BID, (Reported) Aspirin 81 Mg Tab.chew, 81 MG PO HS, (Reported) Cefdinir 300 Mg Capsule, 300 MG PO BID Prescribed by: ANASTASIIA SOTO on 10/12/19 1025 Cyanocobalamin (Vitamin B-12) 1,000 Mcg Tablet, 1,000 MCG PO DAILY, (Reported) Dapagliflozin Propanediol 5 Mg Tablet, 5 MG PO DAILY, (Reported) Diltiazem HCl 180 Mg Cap.er.24h, 180 MG PO DAILY Prescribed by: ANASTASIIA SOOT on 10/12/19 1025 Exenatide 10 Mcg/0.04 Ml Pen.injctr, 10 MCG SC BID, (Reported) LAST FILLED 07-19-19 Fenofibrate Nanocrystallized 145 Mg Tablet, 145 MG PO HS, (Reported) Ferrous Sulfate 325 Mg Tablet, 325 MG PO HS, (Reported) Fluoxetine HCl 20 Mg Capsule, 40 MG PO DAILY, (Reported) TAKES 2 (20MG) CAPSULES Fluticasone Propion/Salmeterol 1 Each Blst.w.dev, 1 PUFF INH BID, (Reported) LAST FILLED 05-01-19 Fluticasone Propionate 16 Gm [place].susp, 2 SPRAYS NS BID PRN for CONGESTION, (Reported) Furosemide 20 Mg Tablet, 20 MG PO Q48H Prescribed by: ANASTASIIA SOTO on 10/12/19 1025 Gabapentin 300 Mg Capsule, 300 MG PO BID, (Reported) Glimepiride 4 Mg Tablet, 4 MG PO DAILY, (Reported) Insulin Glargine,Hum.rec.anlog 100 Unit/1 Ml Insuln.pen, 30 UNITS SC DAILY, (Reported) LAST FILLED 04-28-19 Lisinopril 10 Mg Tablet, 10 MG PO DAILY@0900 Prescribed by: ANASTASIIA SOTO on 10/12/19 1025 Magnesium Oxide 400 Mg Tablet, 400 MG PO DAILY, (Reported) Metformin HCl 500 Mg Tab.er.24h, 500 MG PO BID, (Reported) Metoprolol Tartrate 25 Mg Tablet, 25 MG PO BID Prescribed by: ANASTASIIA SOTO on 10/12/19 1025 Montelukast Sodium 10 Mg Tablet, 10 MG PO HS, (Reported) [place] 3 Polyunsat Fatty Acids 1,000 Mg Cap, 1,000 MG PO BID, (Reported) Omeprazole 20 Mg Capsule.dr, 20 MG PO DAILY, (Reported) Potassium Chloride 10 Meq Tablet.er, 10 MEQ PO DAILY Prescribed by: ANASTASIIA SOTO on 10/12/19 1025 Prednisone 10 Mg Tab.ds.pk, 10 MG PO DAILY Take 6 tabs(60mg)daily,decrease by 1 tab(10MG)daily. Prescribed by: ANASTASIIA SOTO on 10/12/19 1025 Rosuvastatin Calcium 20 Mg Tablet, 20 MG PO HS, (Reported) Tamsulosin HCl 0.4 Mg Cap, 0.4 MG PO DAILY, (Reported) Tolterodine Tartrate 4 Mg Cap.er.24h, 4 MG PO DAILY, (Reported) Patient Home Medication List Home Medication List Reviewed: Yes Review of Systems Review of Systems Constitutional: see HPI, chills; No dizziness; fever EENTM: nose congestion Respiratory: cough, dyspnea on exertion, orthopnea; No phlegm; short of breath Cardiovascular: No chest pain, No edema, No palpitations, No syncope Gastrointestinal: see HPI, nausea, vomiting Genitourinary: no symptoms reported Musculoskeletal: no symptoms reported; No back pain Skin: no symptoms reported Psychiatric/Neurological: No Symptoms Reported Hematologic/Lymphatic: No Symptoms Reported Immunological/Allergic: no symptoms reported Past Abdlefo-Zpapaz-Zdicib Hx Patient Social History Alcohol Use: Past History Recreational Drug Use: No Smoking Status: Former Smoker Type Used: Cigarettes Former Smoker, Quit: Nov 23, 1975 2nd Hand Smoke Exposure: No Recent Foreign Travel: No Contact w/Someone Who Travel: No Recent Infectious Disease Expo: No Recent Hopitalizations: Yes (10/12/19) Physical Abuse: No Sexual Abuse: No Mistreated: No Fear: No Immunizations Up To Date Tetanus Booster (TDap): Unknown PED Vaccines UTD: No Date of Pneumonia Vaccine: Jul 28, 2012 Date of Influenza Vaccine: Jul 28, 2019 Seasonal Allergies Seasonal Allergies: Yes Past Medical History Surgeries: Yes (UMBILICAL HERNIA REPAIR;CARDIAC CATHS-STENTS X 2;BRONCHOSCOPY 11/2018;EGD/C) Abdominal, Appendectomy, Cardiac, Coronary Stent, Eye Surgery, Gallbladder, Orthopedic, Renal Respiratory: Yes ("PIGEON DISEASE/ URIBE'S LUNG" W/ FREQUENT PNEUMONIA; CPAP AT HS; O2 2.5L) Pneumonia, Chronic Bronchitis, Sleep Apnea, COPD Currently Using CPAP: Yes Currently Using BIPAP: No Cardiac: Yes (CARDIAC CATHS--STENTS X 2) Atrial Fibrillation, Coronary Artery Disease, High Cholesterol, Hypertension, Peripheral Vascular Neurological: No Reproductive Disorders: No Sexually Transmitted Disease: No HIV/AIDS: No Genitourinary: Yes Kidney Stones Gastrointestinal: Yes (UMBILICAL HERNIA REPAIR) Gastroesophageal Reflux Musculoskeletal: Yes (CHRONIC RIGHT SHOULDER PAIN-S/P SURGERY) Degenerate Disk Disease, Arthritis, Chronic Back Pain, Gout Endocrine: Yes Diabetes, Insulin dep HEENT: Yes (EYE SURGERY CHILD) Loss of Vision: Denies Cancer: No Psychosocial: Yes Anxiety, Depression Integumentary: No Blood Disorders: No Adverse Reaction/Blood Tranf: No Family Medical History Arthritis 19 FATHER Respiratory disorder 19 FATHER 19 MOTHER Thyroid disease 19 MOTHER No Family History of: AIDS Abdominal aortic aneurysm Alcoholism Alzheimer's disease Asthma Cardiovascular disease Dementia Diabetes mellitus Drug abuse Hypertension Kidney disease Myocardial infarction Parkinson's disease Psychosocial problem Seizure disorder Lung Disease PSH: -CARDIAC CATHS-STENTS X 2--2011, 2012 -RIGHT SHOULDER SURGERY -EGD/COLONOSOPIES/POLYPECTOMY--LAST ONE 03/2017 -BRONCHOSCOPY 11/2018--INTERSTITIAL LUNG DISEASE -LUNG BIOPSY -EYE SURGERY CHILD -APPENDECTOMY -CHOLECYSTECTOMY -UMBILICAL HERNIA REPAIR -KIDNEY STONE REMOVAL PMH: -INTERSTITIAL LUNG DISASE--HYPOERSENSITIVITY PNEUMONITIS -PULMONARY HTN -LUNG NODULES -MILD CAROTID DISEASE Physical Exam Vital Signs - First Documented Capillary Refill : Less Than 3 Seconds Height: 5'6.00" Weight: 179lbs. 8.0oz. [id number]; 30.00 BMI Method:Stated General Appearance: moderate distress (ANXIOUS, MODERATE DYSPNEA WITH ABDOMINAL RETRACTIONS, GRUNTING), obese, other (SOMEWHAT FATIGUED/LETHARGIC) HEENT: PERRL/EOMI, other (EDENTULOUS, CONSTANT MOUTH MOVEMENTS) Neck: normal inspection Respiratory: respiratory distress, decreased breath sounds (IN ALL LUNG WALTERS), accessory muscle use, other (GRUNTING, MODERATE DYSPNEA, ABLE TO TALK IN 2-3 WORD PHRASES. ABDOMINAL RETRACTIONS. TACHYPNEIC) Cardiovascular: no murmur, tachycardia Gastrointestinal: soft Extremities: no pedal edema Neurologic/Psychiatric: no motor/sensory deficits, alert, other (ANXIOUS) Skin: normal color, warm/dry Focused Exam Lactate Level 11/26/19 20:55: Lactic Acid Level 3.33*H Lactic Acid Level Laboratory Tests Test 11/26/19 20:55 Lactic Acid Level 3.33 MMOL/L (0.50-2.00) *H Progress/Results/Core Measures Suspected Sepsis Recent Fever Within 48 Hours: No Infection Criteria Present: Suspected New Infection New/Unexplained Altered Menta: No Sepsis Screen: Possible Sepsis Risk SIRS Temperature: Pulse: 128 Respiratory Rate: 30 Laboratory Tests 11/26/19 20:55: White Blood Count 5.1 Blood Pressure 191 /96 Mean: 127 11/26/19 20:55: Lactic Acid Level 3.33*H Laboratory Tests 11/26/19 20:55: Creatinine 0.64, INR Comment 1.1, Platelet Count 67L, Total Bilirubin 0.6 Results/Orders Lab Results Laboratory Tests Test 11/26/19 20:55 11/26/19 21:27 Range/Units White Blood Count 5.1 4.3-11.0 10^3/uL Red Blood Count 4.51 4.35-5.85 10^6/uL Hemoglobin 13.2 L 13.3-17.7 G/DL Hematocrit 43 40-54 % Mean Corpuscular Volume 96 80-99 FL Mean Corpuscular Hemoglobin 29 25-34 PG Mean Corpuscular Hemoglobin Concent 31 L 32-36 G/DL Red Cell Distribution Width 18.7 H 10.0-14.5 % Platelet Count 67 L 130-400 10^3/uL Mean Platelet Volume 9.9 7.4-10.4 FL Neutrophils (%) (Auto) 68 42-75 % Lymphocytes (%) (Auto) 16 12-44 % Monocytes (%) (Auto) 11 0-12 % Eosinophils (%) (Auto) 4 0-10 % Basophils (%) (Auto) 1 0-10 % Neutrophils # (Auto) 3.4 1.8-7.8 X 10^3 Lymphocytes # (Auto) 0.8 L 1.0-4.0 X 10^3 Monocytes # (Auto) 0.6 0.0-1.0 X 10^3 Eosinophils # (Auto) 0.2 0.0-0.3 10^3/uL Basophils # (Auto) 0.0 0.0-0.1 10^3/uL Prothrombin Time 14.2 12.2-14.7 SEC INR Comment 1.1 0.8-1.4 Activated Partial Thromboplast Time 31 24-35 SEC Urine Color YELLOW Urine Clarity CLEAR Urine pH 7.5 5-9 Urine Specific [place] 1.015 L 1.016-1.022 Urine Protein NEGATIVE NEGATIVE Urine Glucose (UA) 3+ H NEGATIVE Urine Ketones NEGATIVE NEGATIVE Urine Nitrite NEGATIVE NEGATIVE Urine Bilirubin NEGATIVE NEGATIVE Urine Urobilinogen 0.2 < = 1.0 MG/DL Urine Leukocyte Esterase NEGATIVE NEGATIVE Urine RBC (Auto) TRACE-I NEGATIVE Urine RBC 0-2 /HPF Urine WBC NONE /HPF Urine Crystals NONE /LPF Urine Bacteria TRACE /HPF Urine Casts NONE /LPF Urine Mucus NEGATIVE /LPF Urine Culture Indicated CULTURE PENDING Sodium Level 136 135-145 MMOL/L Potassium Level 3.8 3.6-5.0 MMOL/L Chloride Level 101 98-107 MMOL/L Carbon Dioxide Level 20 L 21-32 MMOL/L Anion Gap 15 H 5-14 MMOL/L Blood Urea Nitrogen 13 7-18 MG/DL Creatinine 0.64 0.60-1.30 MG/DL Estimat Glomerular Filtration Rate > 60 BUN/Creatinine Ratio 20 Glucose Level 219 H 70-105 MG/DL Lactic Acid Level 3.33 *H 0.50-2.00 MMOL/L Calcium Level 9.0 8.5-10.1 MG/DL Corrected Calcium 9.3 8.5-10.1 MG/DL Magnesium Level 1.5 L 1.6-2.4 MG/DL Total Bilirubin 0.6 0.1-1.0 MG/DL Aspartate Amino Transf (AST/SGOT) 61 H 5-34 U/L Alanine Aminotransferase (ALT/SGPT) 84 H 0-55 U/L Alkaline Phosphatase 79 40-136 U/L Troponin I < 0.028 <0.028 NG/ML B-Type Natriuretic Peptide 25.1 <100.0 PG/ML Total Protein 6.7 6.4-8.2 GM/DL Albumin 3.6 3.2-4.5 GM/DL Urine Opiates Screen POSITIVE H NEGATIVE Urine Oxycodone Screen NEGATIVE NEGATIVE Urine Methadone Screen NEGATIVE NEGATIVE Urine Propoxyphene Screen NEGATIVE NEGATIVE Urine Barbiturates Screen NEGATIVE NEGATIVE Ur Tricyclic Antidepressants Screen NEGATIVE NEGATIVE Urine Phencyclidine Screen NEGATIVE NEGATIVE Urine Amphetamines Screen NEGATIVE NEGATIVE Urine Methamphetamines Screen NEGATIVE NEGATIVE Urine Benzodiazepines Screen NEGATIVE NEGATIVE Urine Cocaine Screen NEGATIVE NEGATIVE Urine Cannabinoids Screen NEGATIVE NEGATIVE Serum Alcohol < 10 <10 MG/DL Blood Gas Puncture Site LEFT RADIAL Blood Gas Patient Temperature 37.1 Arterial Blood pH 7.40 7.37-7.43 Arterial Blood Partial Pressure CO2 41 35-45 MMHG Arterial Blood Partial Pressure O2 73 L 79-93 MMHG Arterial Blood HCO3 25 23-27 MMOL/L Arterial Blood Total CO2 25.9 21.0-31.0 MMOL/L Arterial Blood Oxygen Saturation 95 94-100 % Arterial Blood Base Excess 0.4 -2.5-2.5 MMOL/L Hiro Test POSITIVE Blood Gas Ventilator Setting NO Blood Gas Inspired Oxygen 5 Micro Results Microbiology 11/26/19 Blood Culture - Preliminary, Resulted No growth 11/26/19 Urine Culture - Final, Complete NO GROWTH 11/26/19 Influenza Types A,B Antigen (VICENTE) - Final, Complete 11/26/19 Blood Culture - Preliminary, Resulted No growth My Orders Orders - PATTI CAPPS DO Ed Iv/Invasive Line Start (11/26/19 20:50) Ekg Tracing (11/26/19 20:50) O2 (11/26/19 20:50) Monitor-Rhythm Ecg Trace Only (11/26/19 20:50) BNP (11/26/19 20:50) Cbc With Automated Diff (11/26/19 20:50) Comprehensive Metabolic Panel (11/26/19 20:50) Magnesium (11/26/19 20:50) Protime With Inr (11/26/19 20:50) Partial Thromboplastin Time (11/26/19 20:50) Blood Culture (11/26/19 20:50) Influenza A And B Antigens (11/26/19 20:50) Troponin I (11/26/19 20:50) Methylprednisolone Sod Succ (Solu-Medrol (11/26/19 21:00) Albuterol/Ipra Inhalation Soln (Duoneb I (11/26/19 21:00) Dexamethasone Injection (Decadron Inject (11/26/19 21:00) Chest 1 View, Ap/Pa Only (11/26/19 20:56) Urinalysis (11/26/19 20:56) Urine Culture (11/26/19 20:56) Vital Signs Adult Sepsis Patie Q15M (11/26/19 20:56) Remove Rings In Anticipation O (11/26/19 20:56) Lactic Acid Analyzer (11/26/19 20:56) Cefepime Injection (Maxipime Injection) (11/26/19 21:00) Svn Small Volume Nebulizer (11/26/19 20:56) Accucheck Stat ONCE (11/26/19 20:56) Alcohol (11/26/19 20:56) Arterial Blood Gas (11/26/19 20:56) Drug Screen Stat (Urine) (11/26/19 20:56) Ed Iv/Invasive Line Start (11/26/19 20:56) Ns Iv 1000 Ml (Sodium Chloride 0.9%) (11/26/19 20:56) Ondansetron Injection (Zofran Injectio (11/26/19 21:15) Lorazepam Injection (Ativan Injection) (11/26/19 21:15) Oseltamivir 75 Mg Capsule (Tamiflu 75 (11/26/19 21:45) Magnesium 1 Gm/100 Ml Ivpb (Magnesium Schulz (11/26/19 21:45) Enoxaparin Injection (Lovenox Injection) (11/26/19 21:45) Medications Given in ED Vital Signs/I&O 11/26/19 11/26/19 11/26/19 20:44 20:44 21:18 Temp 37.1 Pulse 128 Resp 30 B/P (MAP) 191/96 (127) Pulse Ox 95 95 97 O2 Delivery Nasal Cannula Nasal Cannula Nasal Cannula O2 Flow Rate 5.00 5.00 4.50 11/27/19 00:00 Intake Total 10 ml Balance 10 ml Capillary Refill : Less Than 3 Seconds Blood Pressure Mean: 127 Progress Note : Progress Note BEGAN HAVING NAUSEA AND VOMITED SHORTLY AFTER ARRIVAL--GIVEN ZOFRAN AND NAUSEA IS RESOLVED GIVEN ATIVAN FOR INCREASING ANXIETY AND WORK OF BREATHING WITH IMPROVEMENT IN SYMPTOMS GIVEN NEB TREATMENTS, SOLU-MEDROL WITH IMPROVEMENT IN DYSPNEA GIVEN LOVENOX FOR AFIB-HR IN 130'S --HAS INTERMITTENT A FIB /RVR DURING ER STAY- WITH SINUS TACH AND PAC'S . GAVE CEFEPIME DUE TO RECENT ADMIT FOR PNEUMONIA VITALS STABLE NO DETERIORATION IN PT'S CONDITION DURING ER STAY, STILL MILDLY DYSPNEIC AT TIME OF ADMIT, BUT O2 SATS REMAINED IN MID 90'S FOR MOST OF ER STAY, BUT PT QUICKLY DESATS INTO THE 80'S WITH MINIMAL EXERTION, SUCH ADJUSTING HIMSELF IN BED, ETC. ECG Initial ECG Impression Date: Nov 26, 2019 Initial ECG Impression Time: 20:53 Initial ECG Rate: 126 Initial ECG Rhythm: S.Tach (PAC'S) Diagnostic Imaging Comments CXR--EXTENSIVE BIBASILAR INFILTRATES -LEFT > RIGHT, WORSENED FROM 11/12/19. PERSISTENT CARDIOMEGALY WITH MILD VASCULAR CONGESTION Reviewed: Reviewed by Me Departure Communication (Admissions) 2155--SPOKE WITH DR. MCINTOSH, ACCEPTS PT FOR ADMIT. ADVISES ONLY TAMIFLU AND NO FURTHER ANTIBIOTICS AT THIS TIME. Impression Primary Impression: Influenza B Additional Impressions: COPD exacerbation Sepsis Chronic atrial fibrillation HTN (hypertension) IDDM (insulin dependent diabetes mellitus) Bilateral pneumonia Chronic respiratory failure with hypoxia, on home O2 therapy Acute respiratory distress Thrombocytopenia Disposition: ADMITTED INPATIENT Condition: Improved Admissions Decision to Admit/Date: Nov 26, 2019 Time/Decision to Admit Time: 21:55 Departure-Patient Inst. Referrals: [facility] ([facility]) Primary Care Physician MARIBEL GARY (Family) Primary Care Physician PATTI CAPPS DO Nov 26, 2019 22:08
[2019-11-26 23:50] VITALS: BP 144/78
[2019-11-26] MEDS ORDERED: IBUPROFEN 800 MG (MOTRIN) TAB PO ONE (23:58)
[2019-11-26] MEDS: IBUPROFEN 800 MG (MOTRIN) TAB PO PRN (23:59)
[2019-11-27] VITALS (11 sets, daily range): BP systolic 104–191; BP diastolic 59–96
[2019-11-27] MEDS ORDERED: 1/2 NS IV SOLUTION 1,000 ML IV ONE (00:04)
[2019-11-27] MEDS ORDERED: RT-ALBUTEROL/IPRATROPIUM 3 ML (DUONEB) VIAL INH PRN (01:00)
[2019-11-27] MEDS ORDERED: 1/2 NS W/KCL 20 MEQ/L 1,000 ML IV SCH (01:30)
[2019-11-27] MEDS ORDERED: LORazepam INJ 2 MG/ML (ATIVAN) VIAL IV PRN (01:30)
[2019-11-27] MEDS: RT-ALBUTEROL/IPRATROPIUM 3 ML (DUONEB) VIAL INH SCH ×6 (02:09→21:42)
[2019-11-27 03:41] LABS: BASOPHILS % (AUTO) 0 % (0-10); EOSINOPHILS % (AUTO) 0 % (0-10); HEMATOCRIT 40 % (40-54); HEMOGLOBIN 12.1 G/DL (13.3-17.7); LYMPHOCYTES # (AUTO) 0.2 X 10^3 (1.0-4.0); LYMPHOCYTES % (AUTO) 6 % (12-44); MEAN CORPUSCULAR HEMOGLOBIN 29 PG (25-34); MEAN CORPUSCULAR HGB CONC 30 G/DL (32-36); MEAN CORPUSCULAR VOLUME 97 FL (80-99); MEAN PLATELET VOLUME 10.9 FL (7.4-10.4); MONOCYTES # (AUTO) 0.1 X 10^3 (0.0-1.0); MONOCYTES % (AUTO) 3 % (0-12); NEUTROPHILS # (AUTO) 3.6 X 10^3 (1.8-7.8); NEUTROPHILS % (AUTO) 90 % (42-75); PLATELET COUNT 63 10^3/uL (130-400); RED CELL DISTRIBUTION WIDTH 18.7 % (10.0-14.5)
[2019-11-27 04:05] LABS: ALANINE AMINOTRANSFERASE 76 U/L (0-55); ALBUMIN 3.2 GM/DL (3.2-4.5); ALKALINE PHOSPHATASE 68 U/L (40-136); BILIRUBIN,TOTAL 0.5 MG/DL (0.1-1.0); BUN/CREATININE RATIO 18; CALCIUM 8.3 MG/DL (8.5-10.1); CARBON DIOXIDE 18 MMOL/L (21-32); CHLORIDE 106 MMOL/L (98-107); GFR ESTIMATED > 60; GLUCOSE 292 MG/DL (70-105); POTASSIUM 3.7 MMOL/L (3.6-5.0); SODIUM 138 MMOL/L (135-145)
[2019-11-27 05:03] LABS: EOSINOPHILS % (MANUAL) 1 %; LYMPHOCYTES % (MANUAL) 6 %; MONOCYTES % (MANUAL) 4 %; NEUTROPHILS % (MANUAL) 89 %
--- NOTE | 2019-11-27 05:21 | Pulmonary Consultation ---
History of Present Illness History of Present Illness Date Seen by Provider: Nov 27, 2019 Time Seen by Provider: 05:16 Date of Admission Allergies and Home Medications Allergies Coded Allergies: atorvastatin (Verified Allergy, Mild, 03/26/17) Patient states that his bones ached and he wasn't able to tolerate it. Home Medications Albuterol Sulfate 2.5 Mg/3 Ml Vial.neb, 2.5 MG IH Q4H PRN for SHORTNESS OF BREATH, (Reported) Allopurinol 300 Mg Tablet, 300 MG PO BID, (Reported) Apixaban 5 Mg Tablet, 5 MG PO BID, (Reported) Aspirin 81 Mg Tab.chew, 81 MG PO HS, (Reported) Cefdinir 300 Mg Capsule, 300 MG PO BID Prescribed by: ANASTASIIA SOTO on 10/12/19 1025 Cyanocobalamin (Vitamin B-12) 1,000 Mcg Tablet, 1,000 MCG PO DAILY, (Reported) Dapagliflozin Propanediol 5 Mg Tablet, 5 MG PO DAILY, (Reported) Diltiazem HCl 180 Mg Cap.er.24h, 180 MG PO DAILY Prescribed by: ANASTASIIA SOTO on 10/12/19 1025 Exenatide 10 Mcg/0.04 Ml Pen.injctr, 10 MCG SC BID, (Reported) LAST FILLED 07-19-19 Fenofibrate Nanocrystallized 145 Mg Tablet, 145 MG PO HS, (Reported) Ferrous Sulfate 325 Mg Tablet, 325 MG PO HS, (Reported) Fluoxetine HCl 20 Mg Capsule, 40 MG PO DAILY, (Reported) TAKES 2 (20MG) CAPSULES Fluticasone Propion/Salmeterol 1 Each Blst.w.dev, 1 PUFF INH BID, (Reported) LAST FILLED 05-01-19 Fluticasone Propionate 16 Gm [place].susp, 2 SPRAYS NS BID PRN for CONGESTION, (Reported) Furosemide 20 Mg Tablet, 20 MG PO Q48H Prescribed by: ANASTASIIA SOTO on 10/12/19 1025 Gabapentin 300 Mg Capsule, 300 MG PO BID, (Reported) Glimepiride 4 Mg Tablet, 4 MG PO DAILY, (Reported) Insulin Glargine,Hum.rec.anlog 100 Unit/1 Ml Insuln.pen, 30 UNITS SC DAILY, (Reported) LAST FILLED 04-28-19 Lisinopril 10 Mg Tablet, 10 MG PO DAILY@0900 Prescribed by: ANASTASIIA SOTO on 10/12/19 1025 Magnesium Oxide 400 Mg Tablet, 400 MG PO DAILY, (Reported) Metformin HCl 500 Mg Tab.er.24h, 500 MG PO BID, (Reported) Metoprolol Tartrate 25 Mg Tablet, 25 MG PO BID Prescribed by: ANASTASIIA SOTO on 10/12/19 1025 Montelukast Sodium 10 Mg Tablet, 10 MG PO HS, (Reported) [place] 3 Polyunsat Fatty Acids 1,000 Mg Cap, 1,000 MG PO BID, (Reported) Omeprazole 20 Mg Capsule.dr, 20 MG PO DAILY, (Reported) Potassium Chloride 10 Meq Tablet.er, 10 MEQ PO DAILY Prescribed by: ANASTASIIA SOTO on 10/12/19 1025 Prednisone 10 Mg Tab.ds.pk, 10 MG PO DAILY Take 6 tabs(60mg)daily,decrease by 1 tab(10MG)daily. Prescribed by: ANASTASIIA SOTO on 10/12/19 1025 Rosuvastatin Calcium 20 Mg Tablet, 20 MG PO HS, (Reported) Tamsulosin HCl 0.4 Mg Cap, 0.4 MG PO DAILY, (Reported) Tolterodine Tartrate 4 Mg Cap.er.24h, 4 MG PO DAILY, (Reported) Past Citqqza-Gjcvgf-Eusomv Hx Patient Social History Alcohol Use: Denies Use Recreational Drug Use: No Smoking Status: Former Smoker Former Smoker, Quit: Nov 23, 1975 2nd Hand Smoke Exposure: No Recent Foreign Travel: No Contact w/Someone Who Travel: No Recent Infectious Disease Expo: No Recent Hopitalizations: Yes (10/12/19) Physical Abuse: No Sexual Abuse: No Mistreated: No Fear: No Immunizations Up To Date Tetanus Booster (TDap): Unknown PED Vaccines UTD: No Date of Pneumonia Vaccine: Jul 28, 2012 Date of Influenza Vaccine: Jul 28, 2019 Seasonal Allergies Seasonal Allergies: Yes Past Medical History Surgeries: Yes (umb hernia) Abdominal, Appendectomy, Cardiac, Coronary Stent, Eye Surgery, Gallbladder, Renal Respiratory: Yes ("pigeon's disease"" URIBE'S LUNG" WITH FREQUENT PNEUMONIA; CPAP AT HS) Pneumonia, Chronic Bronchitis, Sleep Apnea, COPD Currently Using CPAP: Yes Cardiac: Yes Atrial Fibrillation, Coronary Artery Disease, High Cholesterol, Hypertension, Peripheral Vascular Neurological: No Reproductive Disorders: No Sexually Transmitted Disease: No HIV/AIDS: No Genitourinary: Yes Kidney Stones Gastrointestinal: Yes (UMBILICAL HERNIA REPAIR) Gastroesophageal Reflux Musculoskeletal: Yes (ch. right shoulder pain) Degenerate Disk Disease, Arthritis, Chronic Back Pain, Gout Endocrine: Yes Diabetes, Non-Insulin dep HEENT: Yes (EYE SURGERY CHILD) Loss of Vision: Denies Cancer: No Psychosocial: Yes Anxiety, Depression Integumentary: No Blood Disorders: No Adverse Reaction/Blood Tranf: No Family Medical History Arthritis 19 FATHER Respiratory disorder 19 FATHER 19 MOTHER Thyroid disease 19 MOTHER No Family History of: AIDS Abdominal aortic aneurysm Alcoholism Alzheimer's disease Asthma Cardiovascular disease Dementia Diabetes mellitus Drug abuse Hypertension Kidney disease Myocardial infarction Parkinson's disease Psychosocial problem Seizure disorder Lung Disease Sepsis Event Evaluation Height, Weight, BMI Height: 5'6.00" Weight: 179lbs. 8.0oz. 81.145302ku; 29.40 BMI Method:Stated Exam Exam Vital Signs Date Time Temp Pulse Resp B/P (MAP) Pulse Ox O2 Delivery O2 Flow Rate FiO2 11/27/19 04:00 106 19 130/68 (88) 97 Nasal Cannula 5.00 11/27/19 03:23 35.8 11/27/19 03:23 97 Nasal Cannula 5.00 11/27/19 03:00 112 19 125/69 (87) 98 Nasal Cannula 5.00 11/27/19 02:03 100 Nasal Cannula 6.00 11/27/19 02:00 110 21 140/68 (92) 95 Nasal Cannula 5.00 11/27/19 01:05 36.9 11/27/19 01:00 123 11/27/19 01:00 128 20 129/75 (93) 95 Nasal Cannula 5.00 11/27/19 00:36 97 Nasal Cannula 5.00 11/27/19 00:36 37.1 128 95 11/27/19 00:29 36.9 11/27/19 00:15 126 20 109/69 (82) 94 Nasal Cannula 5.00 11/27/19 00:00 97 Nasal Cannula 5.00 11/26/19 23:59 126 11/26/19 23:59 39.0 11/26/19 23:50 39.0 130 20 144/78 (100) 97 Nasal Cannula 5.00 11/26/19 23:43 37.9 132 28 143/89 96 Nasal Cannula 5.00 11/26/19 23:01 93 Room Air 11/26/19 22:46 94 Nasal Cannula 5.00 11/26/19 21:18 97 Nasal Cannula 4.50 11/26/19 20:44 95 Nasal Cannula 5.00 11/26/19 20:44 37.1 128 30 191/96 (127) 95 Nasal Cannula 5.00 I & O 11/27/19 07:00 Intake Total 1210 ml Balance 1210 ml Height & Weight Height: 5'6.00" Weight: 179lbs. 8.0oz. 81.738688us; 29.40 BMI Method:Stated Capillary Refill: Less Than 3 Seconds Results Lab Laboratory Tests 11/26/19 20:55 11/27/19 03:08 Assessment/Plan Assessment/Plan Acute respiratory distress with hypoxia Bilateral pneumonia with sepsis and influenza B COPDAE -Solumedrol -DuonNEbs -Advair Hx of severe COPD DOUG SAMUEL DO Nov 27, 2019 05:21
[2019-11-27] MEDS ORDERED: PIPERACILLIN/TAZO 4.5 GM/NS 100 ML IV ONE ×2 (05:30)
[2019-11-27] MEDS ORDERED: PIPERACILLIN/TAZOBACTAM (BULK) 4.5 GM in NS (IVPB) 100 ML IV SCH (05:30)
[2019-11-27] MEDS ORDERED: LACTATED RINGERS 1,000 ML IV SCH (05:30)
[2019-11-27] MEDS ORDERED: VANCOMYCIN INJECTION 1,000 MG in NS (IVPB) 250 ML IV SCH (05:30)
[2019-11-27] MEDS ORDERED: PHARMACY TO DOSE IV SCH (05:30)
[2019-11-27] MEDS ORDERED: methylPREDNISolone 40 MG/ML (Solu-MEDROL) VIAL ONE (05:35)
[2019-11-27] MEDS ORDERED: LACTATED RINGERS 1,000 ML IV ONE (05:35)
[2019-11-27] MEDS ORDERED: NS (IVPB) 250 ML ONE (05:38)
[2019-11-27] MEDS ORDERED: VANCOMYCIN 1000 MG/VIAL ONE (05:38)
[2019-11-27] MEDS: methylPREDNISolone 125 MG (Solu-MEDROL) VIAL IV SCH ×4 (05:50→23:42)
[2019-11-27] MEDS: inSUlin ASPART (NovoLOG) 1 UNIT/0.01 ML (CHARGE PER UNIT) SC SCH ×4 (05:50→21:07)
[2019-11-27 05:53] LABS: MAGNESIUM 1.9 MG/DL (1.6-2.4); PHOSPHORUS 3.8 MG/DL (2.3-4.7)
[2019-11-27] MEDS ORDERED: NS (IVPB) 100 ML ONE (05:59)
[2019-11-27] MEDS ORDERED: PIPERACILLIN/TAZO 4.5 GM VIAL (ZOSYN) IV ONE (05:59)
[2019-11-27] MEDS ORDERED: methylPREDNISolone 125 MG (Solu-MEDROL) VIAL IV SCH (06:00)
[2019-11-27 06:19] LABS: BILIRUBIN,URINE NEGATIVE (NEGATIVE); CLARITY,URINE CLEAR; COLOR,URINE YELLOW; GLUCOSE, URINE (UA) 3+ (NEGATIVE); KETONES,URINE TRACE (NEGATIVE); LEUKOCYTE ESTERASE ,URINE NEGATIVE (NEGATIVE); NITRITE,URINE NEGATIVE (NEGATIVE); PROTEIN,URINE NEGATIVE (NEGATIVE)
[2019-11-27 06:28] LABS: BACTERIA,URINE FEW /HPF; RBC,URINE 0-2 /HPF; SQUAMOUS EPITHELIAL CELL,UR 0-2 /HPF
[2019-11-27] MEDS ORDERED: VANCOMYCIN 500 MG/NS 100 ML IV ONE ×2 (06:45)
--- NOTE | 2019-11-27 07:18 | NUR ---
VANCOMYCIN DOSING SCR 0.6 (USED 1.0); CRCL ~ 73; BOLUS DOSE OF VANC 1500 MG DONE BY EPHARMACY - VANC 15 MG/KG X 82 KG ~ 1250 MG Q12H CHECK TROUGH LEVEL 11/29 0500 HOLD DOSE AND CONTACT PHARMACY IF LEVEL IS GREATER THAN 20
--- NOTE | 2019-11-27 07:18 | Diagnostic Imaging Report ---
Indication: Influenza. Time of exam: 3:43 AM Correlation is made with prior chest one day earlier. Bilateral pulmonary infiltrates persist and may be slightly increased when compared with yesterday. No significant effusion is seen. No pneumothorax. Impression: Bilateral pulmonary infiltrates consistent with pneumonia. This does appear to be slightly increased when compared with one day earlier. Dictated by: Dictated on workstation # [id number]
[2019-11-27 07:23] LABS: FIBRIN DEGRADATION PRODUCTS 0.31 UG/ML (0.00-0.49); INR 1.2 (0.8-1.4); PROTHROMBIN TIME PATIENT 15.2 SEC (12.2-14.7)
--- NOTE | 2019-11-27 07:52 | History & Physical-Hospitalist ---
History of Present Illness HPI/Chief Complaint PT ARRIVES VIA POV FROM HOME WITH C/O SHORTNESS OF BREATH--PT HAS COPD AND "PIGEON OR URIBE'S LUNG" / INTERSTITI AL LUNG DISEASE AND WEARS HOME O2 AT 3 1/2 L/NC CONTINUOUSLY, BUT HAD TO INCREASE IT TO 5L/NC TODAY--SHORTNESS OF BREATH IS MUCH WORSE TODAY/ALL DAY PT HAD ALBUTEROL NEB TREATMENT AT 1600, BUT HAS NOT USED ANY INHALERS TODAY HAS HAD INCREASED COUGH TODAY PT HAS ALSO HAD SUBJECTIVE FEVER AND CHILLS TODAY--HAS NOT TAKEN ANYTHING FOR THOSE SYMPTOMS NO CHEST PAIN NO SWELLING IN LEGS / FEET HAS BEEN SICK FOR THE LAST WEEK WITH "BRONCHITIS" --STATES HER FLU TEST WAS NEGATIVE. BOTH PT AND HAVE HAD FLU SHOTS THIS SEASON, WELL PNEUMONIA VACCINES. PT WAS HOSPITALIZED 10/05-10/14 FOR PNEUMONIA, AND HAS HAD MULTIPLE ADMITS FOR SAME, WELL OTHER MEDICAL PROBLEMS PT ALSO HAS CHRONIC ATRIAL FIBRILLATION AND IS ON ELIQUIS--HAS NOT HAD PM DOSE. PT HAS CAD WITH STENTS X 2 PT IS INSULIN DEPENDENT DIABETIC. Patient resting comfortably with mild tachypnea. Loose nonproductive cough with no worsening of shortness of breath overnight. He reports little bit of a chronic tight sensation in the chest denies pain reporting no sputum production with the abrupt onset of symptoms sometime yesterday morning early a.m. Date Seen 11/27/19 Time Seen by a Provider: 07:00 Attending Physician Ashutosh Gordon MD PCP [facility],Keegan Reilly Referring Physician Date of Admission Nov 26, 2019 at 22:00 Home Medications & Allergies Home Medications Reviewed patient Home Medication Reconciliation performed by pharmacy medication reconciliations diazo technician and/or nursing. Patients Allergies have been reviewed. Allergies Allergies Coded Allergies atorvastatin (Verified Allergy, Mild, 03/26/17) Patient states that his bones ached and he wasn't able to tolerate it. Past Ubjqgpd-Pcarxe-Jcnfwc Hx Past Med/Social Hx: Reviewed and Corrections made Patient Social History Alcohol Use: Denies Use Recreational Drug Use: No Smoking Status: Former Smoker Former Smoker, Quit: Nov 23, 1975 2nd Hand Smoke Exposure: No Recent Foreign Travel: No Contact w/other who traveled: No Recent Hopitalizations: Yes (10/12/19) Recent Infectious Disease Expo: No Immunizations Up To Date Tetanus Booster (TDap): Unknown Pediatric: No Date of Pneumonia Vaccine: Jul 28, 2012 Date of Influenza Vaccine: Jul 28, 2019 Seasonal Allergies Seasonal Allergies: Yes Past Medical History Surgeries: Abdominal, Appendectomy, Cardiac, Coronary Stent, Eye Surgery, Gallbladder, Renal Respiratory: COPD Currently Using CPAP: Yes Cardiac: Atrial Fibrillation, Coronary Artery Disease, High Cholesterol, Hypertension, Peripheral Vascular Reproductive: No Sexually Transmitted Disease: No HIV/AIDS: No Genitourinary: Kidney Stones Gastrointestinal: Gastroesophageal Reflux Musculoskeletal: Degenerate Disk Disease, Arthritis, Chronic Back Pain, Gout Endocrine: Diabetes, Non-Insulin dep Loss of Vision: Denies Psychosocial: Anxiety, Depression History of Blood Disorders: No Adverse Reaction to Blood Eng: No Family History Arthritis 19 FATHER Respiratory disorder 19 FATHER 19 MOTHER Thyroid disease 19 MOTHER No Family History of: AIDS Abdominal aortic aneurysm Alcoholism Alzheimer's disease Asthma Cardiovascular disease Dementia Diabetes mellitus Drug abuse Hypertension Kidney disease Myocardial infarction Parkinson's disease Psychosocial problem Seizure disorder Lung Disease Review of Systems Constitutional: see HPI Physical Exam Physical Exam Vital Signs Vital Signs - First Documented Capillary Refill : Less Than 3 Seconds Height, Weight, BMI Height: 5'6.00" Weight: 179lbs. 8.0oz. 81.439088zl; 29.40 BMI Method:Stated General Appearance: No Apparent Distress Neck: Full Range of Motion, Normal Inspection, Non Tender Respiratory: Chest Non Tender, Accessory Muscle Use (With minimal exertion not at rest), Other (Diffuse rales and rhonchi with mild expiratory wheezing throughout) Cardiovascular: Regular Rate, Rhythm, No Edema, No Gallop, No JVD, No Murmur, Normal Peripheral Pulses Gastrointestinal: Normal Bowel Sounds, No Organomegaly, No Pulsatile Mass, Non Tender, Soft Extremity: Normal Capillary Refill, Normal Inspection, Normal Range of Motion, Non Tender, No Calf Tenderness, No Pedal Edema Neurologic/Psychiatric: Alert Skin: Pallor Results Results/Procedures Labs Laboratory Tests 11/26/19 20:55 11/27/19 03:08 Patient resulted labs reviewed. Assessment/Plan Admission Diagnosis A/P 1. Influenza b with worsening by basilar infiltrates and physical examination findings compatible with acute bronchiolitis are likely all viral r elated. Cannot rule out the possibility of bacterial infection Dr. Hightower is initiated broad-spectrum antibiotics and cultures are pending. We will continue Tamiflu. 2. 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 3. New-onset thrombocytopenia labs for hit and autoimmune thrombocytopenia pending but likely related to number 1 for this reason left a hold anticoagulant therapy and continue to monitor. No evidence for bleeding at this time. Admission Status: Inpatient Order (span 2 midnights) Reason for Inpatient Admission: See admission diagnosis Critical Care Critically Ill Patient Clinical Quality Measures DVT/VTE Risk/Contraindication: Risk Factor Score Per Nursin RFS Level Per Nursing on Admit: 4+=Very High ASHUTOSH GORDON MD Nov 27, 2019 07:52
[2019-11-27] MEDS: OSELTAMIVIR 75 MG (TAMIFLU) CAPSULE PO SCH ×2 (08:14→21:16)
[2019-11-27] MEDS ORDERED: NS IV 1000 ML 1,000 ML ONE (11:59)
[2019-11-27] MEDS: NS IV 1000 ML 1,000 ML IV SCH ×2 (12:11→19:39)
[2019-11-27] MEDS: PIPERACILLIN/TAZO 4.5 GM/NS 100 ML IV SCH ×4 (12:12→19:40)
[2019-11-27] MEDS: VANCOMYCIN 1250 MG/NS 250 ML IVPB IV SCH ×2 (18:13)
[2019-11-27] MEDS: ACETAMINOPHEN 500 MG TAB (TYLENOL) PO PRN (21:23)
[2019-11-28] VITALS: BP 126/81
[2019-11-28] MEDS: NS IV 1000 ML 1,000 ML IV SCH ×2 (02:06→03:51)
[2019-11-28] MEDS: RT-ALBUTEROL/IPRATROPIUM 3 ML (DUONEB) VIAL INH SCH ×6 (02:33→22:04)
[2019-11-28] MEDS: PIPERACILLIN/TAZO 4.5 GM/NS 100 ML IV SCH ×6 (03:07→21:27)
[2019-11-28 03:37] LABS: BASOPHILS % (AUTO) 0 % (0-10); EOSINOPHILS % (AUTO) 0 % (0-10); HEMATOCRIT 40 % (40-54); HEMOGLOBIN 11.7 G/DL (13.3-17.7); LYMPHOCYTES # (AUTO) 0.4 X 10^3 (1.0-4.0); LYMPHOCYTES % (AUTO) 8 % (12-44); MEAN CORPUSCULAR HEMOGLOBIN 29 PG (25-34); MEAN CORPUSCULAR HGB CONC 30 G/DL (32-36); MEAN CORPUSCULAR VOLUME 97 FL (80-99); MONOCYTES # (AUTO) 0.2 X 10^3 (0.0-1.0); MONOCYTES % (AUTO) 4 % (0-12); NEUTROPHILS # (AUTO) 4.3 X 10^3 (1.8-7.8); NEUTROPHILS % (AUTO) 88 % (42-75); PLATELET COUNT 59 10^3/uL (130-400); RED CELL DISTRIBUTION WIDTH 18.2 % (10.0-14.5); WHITE BLOOD COUNT 4.8 10^3/uL (4.3-11.0)
[2019-11-28 04:00] VITALS: BP 137/77
[2019-11-28 04:21] LABS: BUN/CREATININE RATIO 22; CALCIUM 7.9 MG/DL (8.5-10.1); CARBON DIOXIDE 22 MMOL/L (21-32); CHLORIDE 109 MMOL/L (98-107); CREATININE SERUM 0.51 MG/DL (0.60-1.30); GFR ESTIMATED > 60; GLUCOSE 160 MG/DL (70-105); MAGNESIUM 1.7 MG/DL (1.6-2.4); PHOSPHORUS 2.6 MG/DL (2.3-4.7); POTASSIUM 3.6 MMOL/L (3.6-5.0); SODIUM 139 MMOL/L (135-145)
--- NOTE | 2019-11-28 04:51 | Pulmonary Progress Note ---
Subjective Time Seen by a Provider: 04:50 Subjective/Events-last exam pt appears to be more SOB. Sepsis Event Evaluation Height, Weight, BMI Height: 5'6.00" Weight: 179lbs. 8.0oz. 81.776901zp; 29.40 BMI Method:Stated Focused Exam Lactate Level 11/26/19 20:55: Lactic Acid Level 3.33*H 11/26/19 22:59: Lactic Acid Level 1.03 11/27/19 07:00: Lactic Acid Level 1.05 Exam Exam Vital Signs Date Time Temp Pulse Resp B/P (MAP) Pulse Ox O2 Delivery O2 Flow Rate FiO2 11/28/19 04:00 94 21 137/77 (97) 93 Nasal Cannula 4.00 11/28/19 03:09 Nasal Cannula 4.00 11/28/19 03:09 36.5 11/28/19 02:34 98 Nasal Cannula 4.00 11/28/19 01:00 85 11/28/19 00:00 85 18 126/81 (96) 98 Nasal Cannula 4.00 11/27/19 23:47 36.2 11/27/19 23:47 Nasal Cannula 4.00 11/27/19 21:42 98 Nasal Cannula 4.00 11/27/19 20:08 Nasal Cannula 4.00 11/27/19 20:00 93 21 141/77 (98) 92 Nasal Cannula 4.00 11/27/19 20:00 Nasal Cannula 4.00 11/27/19 20:00 36.7 11/27/19 19:00 100 20 143/86 (105) 93 Nasal Cannula 4.00 11/27/19 19:00 103 11/27/19 18:21 98 Nasal Cannula 4.00 11/27/19 16:00 Nasal Cannula 4.00 11/27/19 16:00 36.7 11/27/19 16:00 80 14 119/63 (81) 94 Nasal Cannula 4.00 11/27/19 14:26 92 Nasal Cannula 4.00 11/27/19 13:00 82 11/27/19 12:00 76 16 104/59 (74) 99 Nasal Cannula 4.00 11/27/19 12:00 36.3 11/27/19 12:00 Nasal Cannula 4.00 11/27/19 08:00 Nasal Cannula 4.00 11/27/19 08:00 36.3 88 22 114/78 (90) 96 Nasal Cannula 4.00 11/27/19 08:00 Nasal Cannula 4.00 11/27/19 07:46 98 Nasal Cannula 4.00 11/27/19 07:00 87 11/27/19 06:20 Nasal Cannula 4.00 I & O 11/28/19 07:00 Intake Total 2700 ml Output Total 1625 ml Balance 1075 ml Height & Weight Height: 5'6.00" Weight: 179lbs. 8.0oz. 81.693528qk; 29.40 BMI Method:Stated General Appearance: Anxious, Chronically ill, Mild Distress HEENT: PERRL/EOMI, Pharynx Normal Neck: Full Range of Motion, Normal Inspection, Non Tender Respiratory: Chest Non Tender, Accessory Muscle Use (With minimal exertion not at rest), Crackles, Decreased Breath Sounds, Rhonci, Wheezing, Other (Diffuse rales and rhonchi with mild expiratory wheezing throughout) Cardiovascular: Regular Rate, Rhythm, No Edema, No Gallop, No JVD, No Murmur, Normal Peripheral Pulses Capillary Refill: Less Than 3 Seconds Gastrointestinal: soft Extremity: Normal Capillary Refill, Normal Inspection, Normal Range of Motion, Non Tender, No Calf Tenderness, No Pedal Edema Neurologic/Psychiatric: Alert Skin: Normal Color, Warm/Dry, Pallor Lymphatic: No Adenopathy Results Lab Laboratory Tests 11/26/19 20:55 11/27/19 03:08 11/28/19 03:08 Assessment/Plan Assessment/Plan Acute respiratory distress with hypoxia Bilateral pneumonia with sepsis and influenza B -Continue zosyn, vanco for now -CXR appears worse -Check BNP -Give 80mg of IV Lasix x 1 -Add mucomyst to SVNs. Hypokalemia, hypomag -replace COPDAE -Solumedrol -DuonNEbs -Advair Hx of severe COPD DOUG SAMUEL DO Nov 28, 2019 04:51
[2019-11-28] MEDS ORDERED: FUROSEMIDE 40 MG/4 ML INJ (LASIX) ONE (04:57)
[2019-11-28] MEDS ORDERED: FUROSEMIDE 40 MG/4 ML INJ (LASIX) IVP ONE (05:00)
[2019-11-28] MEDS ORDERED: POTASSIUM PHOSPHATE INJ 30 MM in NS (IVPB) 250 ML IV ONE (05:00)
[2019-11-28] MEDS: methylPREDNISolone 125 MG (Solu-MEDROL) VIAL IV SCH ×2 (05:06→11:24)
[2019-11-28] MEDS: VANCOMYCIN 1250 MG/NS 250 ML IVPB IV SCH ×4 (05:06→18:37)
[2019-11-28] MEDS: MAGNESIUM 1 GM/100 ML IVPB 100 ML IV SCH (05:10)
[2019-11-28] MEDS: inSUlin ASPART (NovoLOG) 1 UNIT/0.01 ML (CHARGE PER UNIT) SC SCH ×4 (05:10→21:28)
[2019-11-28 08:00] VITALS: BP 153/81
[2019-11-28] MEDS: OSELTAMIVIR 75 MG (TAMIFLU) CAPSULE PO SCH ×2 (08:05→21:27)
[2019-11-28] MEDS ORDERED: KCL 20 MEQ TAB (K-DUR) PO ONE (09:00)
[2019-11-28] MEDS: aCETylcysteine 20% (MUCOMYST) 30ML SOLN VIAL INH SCH ×4 (09:11→22:05)
--- NOTE | 2019-11-28 09:11 | Diagnostic Imaging Report ---
CLINICAL INDICATION: Patient with pneumonia and influenza B, sepsis, bilateral pneumonia and COPD exacerbation. Exam: Portable chest x-ray upright view. Comparisons: Chest x-ray dated 11/27/2019. Findings: There is interval progression of airspace patchy infiltrate in the right upper lung field/superior right perihilar region. There is otherwise stable airspace infiltrate in the left midlung field left lung base and periphery of the right lung base concerning for pneumonia. Bilateral pleural effusions may be present with blunting of the costophrenic angles. There is no pneumothorax. Cardiac silhouette is obscured. There is no significant pulmonary vascular congestion. There is hypertrophic spurs involving the spine. IMPRESSION: 1: There is interval progression of lung infiltrate involving right upper lobe/superior right perihilar region. Otherwise stable bilateral lung infiltrates/pneumonia predominantly involving both midlung payan and both lung bases. Dictated by: Dictated on workstation # [id number]
[2019-11-28] MEDS: IBUPROFEN 800 MG (MOTRIN) TAB PO PRN (11:24)
[2019-11-28 12:00] VITALS: BP 128/73
--- NOTE | 2019-11-28 13:30 | Progress Note - Hospitalist ---
Subjective HPI/CC On Admission Date Seen by Provider: Nov 28, 2019 Time Seen by Provider: 09:15 PT ARRIVES VIA POV FROM HOME WITH C/O SHORTNESS OF BREATH--PT HAS COPD AND "PIGEON OR URIBE'S LUNG" / INTERSTITIAL LUNG DISEASE AND WEARS HOME O2 AT 3 1/2 L/NC CONTINUOUSLY, BUT HAD TO INCREASE IT TO 5L/NC TODAY--SHORTNESS OF BREATH IS MUCH WORSE TODAY/ALL DAY PT HAD ALBUTEROL NEB TREATMENT AT 1600, BUT HAS NOT USED ANY INHALERS TODAY HAS HAD INCREASED COUGH TODAY PT HAS ALSO HAD SUBJECTIVE FEVER AND CHILLS TODAY--HAS NOT TAKEN ANYTHING FOR THOSE SYMPTOMS NO CHEST PAIN NO SWELLING IN LEGS / FEET HAS BEEN SICK FOR THE LAST WEEK WITH "BRONCHITIS" --STATES HER FLU TEST WAS NEGATIVE. BOTH PT AND HAVE HAD FLU SHOTS THIS SEASON, WELL PNEUMONIA VACCINES. PT WAS HOSPITALIZED 10/05-10/14 FOR PNEUMONIA, AND HAS HAD MULTIPLE ADMITS FOR SAME, WELL OTHER MEDICAL PROBLEMS PT ALSO HAS CHRONIC ATRIAL FIBRILLATION AND IS ON ELIQUIS--HAS NOT HAD PM DOSE. PT HAS CAD WITH STENTS X 2 PT IS INSULIN DEPENDENT DIABETIC. Patient resting comfortably with mild tachypnea. Loose nonproductive cough with no worsening of shortness of breath overnight. He reports little bit of a chronic tight sensation in the chest denies pain reporting no sputum production with the abrupt onset of symptoms sometime yesterday morning early a.m. Subjective/Events-last exam patient feeling better mild nonproductive cough without shortness of breath at rest. He slept most of yesterday feels little more alert although still quite fatigued today. There is been no evidence for bleeding. Focused Exam Lactate Level 11/26/19 20:55: Lactic Acid Level 3.33*H 11/26/19 22:59: Lactic Acid Level 1.03 11/27/19 07:00: Lactic Acid Level 1.05 Objective Exam Vital Signs Vital Signs Date Time Temp Pulse Resp B/P (MAP) Pulse Ox O2 Delivery O2 Flow Rate FiO2 11/28/19 12:00 90 25 128/73 (91) 97 Nasal Cannula 5.00 11/28/19 12:00 36.6 Capillary Refill : Less Than 3 Seconds General Appearance: No Apparent Distress Respiratory: No Accessory Muscle Use, No Respiratory Distress, Other (few scattered rhonchi without wheezing) Cardiovascular: Regular Rate, Rhythm, No Edema, No Gallop, No JVD, No Murmur, Normal Peripheral Pulses Gastrointestinal: Normal Bowel Sounds, No Organomegaly, No Pulsatile Mass, Non Tender, Soft Neurologic/Psychiatric: Alert, Oriented x3 Skin: Warm/Dry, Pallor Results/Procedures Lab Laboratory Tests 11/28/19 03:08 Patient resulted labs reviewed. Assessment/Plan Assessment and Plan Assess & Plan/Chief Complaint A/P 1. Influenza b with worsening by basilar infiltrates and physical examination findings compatible with acute bronchiolitis are likely all viral related. Cannot rule out the possibility of bacterial infection Dr. Hightower is initiated broad-spectrum antibiotics and cultures are pending. We will continue Tamiflu. clinically improving 2. 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 3. New-onset thrombocytopenia labs for hit and autoimmune thrombocytopenia pending but likely related to number 1 for this reason left a hold anticoagulant therapy and continue to monitor. No evidence for bleeding at this time. platelet count down slightly from 63,000 2 59,000 labs pending. 4. Type II diabetes mellitus continue monitoring blood sugars aggravated by steroids control not unreasonable between 150 and 200 continue basal bolus therapy. Critical Care Critically Ill Patient Clinical Quality Measures DVT/VTE Risk/Contraindication: Risk Factor Score Per Nursin RFS Level Per Nursing on Admit: 4+=Very High LORAINE MCINTOSH MD Nov 28, 2019 13:30
[2019-11-28 16:00] VITALS: BP 116/81
--- NOTE | 2019-11-28 18:02 | NUR ---
SPUTUM TO FRANTZ JACKMAN NOTIFIED Addendum: 11/28/19 at 1802 by JENNIFER GARY RT Amended: Links added.
[2019-11-28] MEDS: methylPREDNISolone 40 MG/ML (Solu-MEDROL) VIAL IV SCH (18:37)
[2019-11-28 20:00] VITALS: BP 145/92
[2019-11-28] MEDS ORDERED: NS (IVPB) 0 ML ONE (21:19)
[2019-11-28] MEDS ORDERED: PIPERACILLIN/TAZO 4.5 GM VIAL (ZOSYN) IV ONE (21:19)
[2019-11-29] VITALS (8 sets, daily range): BP systolic 129–175; BP diastolic 74–87
[2019-11-29] MEDS: methylPREDNISolone 40 MG/ML (Solu-MEDROL) VIAL IV SCH ×4 (00:34→18:26)
[2019-11-29] MEDS: aCETylcysteine 20% (MUCOMYST) 30ML SOLN VIAL INH SCH ×6 (02:11→21:39)
[2019-11-29] MEDS: RT-ALBUTEROL/IPRATROPIUM 3 ML (DUONEB) VIAL INH SCH ×6 (02:11→21:39)
[2019-11-29] MEDS: PIPERACILLIN/TAZO 4.5 GM/NS 100 ML IV SCH ×6 (03:53→21:18)
[2019-11-29 03:56] LABS: BASOPHILS % (AUTO) 0 % (0-10); EOSINOPHILS % (AUTO) 0 % (0-10); HEMATOCRIT 40 % (40-54); HEMOGLOBIN 11.9 G/DL (13.3-17.7); LYMPHOCYTES # (AUTO) 0.3 X 10^3 (1.0-4.0); LYMPHOCYTES % (AUTO) 8 % (12-44); MEAN CORPUSCULAR HEMOGLOBIN 29 PG (25-34); MEAN CORPUSCULAR HGB CONC 30 G/DL (32-36); MEAN CORPUSCULAR VOLUME 96 FL (80-99); MEAN PLATELET VOLUME 10.9 FL (7.4-10.4); MONOCYTES # (AUTO) 0.2 X 10^3 (0.0-1.0); MONOCYTES % (AUTO) 7 % (0-12); NEUTROPHILS # (AUTO) 2.5 X 10^3 (1.8-7.8); NEUTROPHILS % (AUTO) 84 % (42-75); PLATELET COUNT 67 10^3/uL (130-400)
[2019-11-29 04:23] LABS: BUN/CREATININE RATIO 28; CALCIUM 8.6 MG/DL (8.5-10.1); CARBON DIOXIDE 27 MMOL/L (21-32); CHLORIDE 106 MMOL/L (98-107); CREATININE SERUM 0.58 MG/DL (0.60-1.30); GFR ESTIMATED > 60; GLUCOSE 223 MG/DL (70-105); MAGNESIUM 1.9 MG/DL (1.6-2.4); PHOSPHORUS 2.2 MG/DL (2.3-4.7); POTASSIUM 3.7 MMOL/L (3.6-5.0); SODIUM 142 MMOL/L (135-145)
[2019-11-29 04:29] LABS: VANCOMYCIN,TROUGH 18.1 UG/ML (10.0-20.0)
[2019-11-29] MEDS ORDERED: TROUGH ORDER-PHARMACY XX NR (05:00)
--- NOTE | 2019-11-29 05:48 | Pulmonary Progress Note ---
Subjective Time Seen by a Provider: 05:48 Subjective/Events-last exam Pt appears to be doing better. Sepsis Event Evaluation Height, Weight, BMI Height: 5'6.00" Weight: 179lbs. 8.0oz. 81.400291be; 29.40 BMI Method:Stated Focused Exam Lactate Level 11/26/19 20:55: Lactic Acid Level 3.33*H 11/26/19 22:59: Lactic Acid Level 1.03 11/27/19 07:00: Lactic Acid Level 1.05 Exam Exam Vital Signs Date Time Temp Pulse Resp B/P (MAP) Pulse Ox O2 Delivery O2 Flow Rate FiO2 11/29/19 04:00 36.1 80 17 132/80 (97) 97 Nasal Cannula 5.00 11/29/19 04:00 Nasal Cannula 5.00 11/29/19 02:13 99 Nasal Cannula 5.00 11/29/19 01:00 67 11/29/19 00:00 Nasal Cannula 5.00 11/29/19 00:00 36.0 11/29/19 00:00 79 17 145/75 (98) 97 Nasal Cannula 5.00 11/28/19 22:08 96 Nasal Cannula 5.00 11/28/19 21:00 Nasal Cannula 5.00 11/28/19 20:00 88 13 145/92 (109) 96 Nasal Cannula 5.00 11/28/19 20:00 36.6 11/28/19 20:00 Nasal Cannula 5.00 11/28/19 19:00 97 11/28/19 17:50 94 Nasal Cannula 5.00 11/28/19 16:00 89 20 116/81 (93) 97 Nasal Cannula 5.00 11/28/19 16:00 Nasal Cannula 5.00 11/28/19 16:00 36.8 11/28/19 13:58 94 Nasal Cannula 4.00 11/28/19 13:00 99 11/28/19 12:00 90 25 128/73 (91) 97 Nasal Cannula 5.00 11/28/19 12:00 Nasal Cannula 5.00 11/28/19 12:00 36.6 11/28/19 09:11 92 Nasal Cannula 4.00 11/28/19 08:00 Nasal Cannula 5.00 11/28/19 08:00 36.4 108 15 153/81 (105) 93 Nasal Cannula 5.00 11/28/19 08:00 Nasal Cannula 5.00 11/28/19 07:00 97 11/28/19 06:09 92 Nasal Cannula 4.00 I & O 11/29/19 07:00 Intake Total 2582.5 ml Output Total 4900 ml Balance -2317.5 ml Height & Weight Height: 5'6.00" Weight: 179lbs. 8.0oz. 81.238742mp; 29.40 BMI Method:Stated General Appearance: No Apparent Distress, Anxious, Chronically ill Neck: Full Range of Motion, Normal Inspection, Non Tender Respiratory: No Accessory Muscle Use, No Respiratory Distress, Decreased Breath Sounds, Other (few scattered rhonchi without wheezing) Cardiovascular: Regular Rate, Rhythm, No Edema, No Gallop, No JVD, No Murmur, Normal Peripheral Pulses Capillary Refill: Less Than 3 Seconds Gastrointestinal: soft Extremity: Normal Capillary Refill, Normal Inspection, Normal Range of Motion, Non Tender, No Calf Tenderness, No Pedal Edema Neurologic/Psychiatric: Alert, Oriented x3 Skin: Warm/Dry, Pallor Results Lab Laboratory Tests 11/28/19 03:08 11/29/19 03:15 Assessment/Plan Assessment/Plan Acute respiratory distress with hypoxia Bilateral pneumonia with sepsis and influenza B -Continue guillermina miller for now Hypokalemia, hypophos -replace COPDAE -Solumedrol -DuonNEbs -Advair Hx of severe COPD DOUG SAMUEL DO Nov 29, 2019 05:48
[2019-11-29] MEDS ORDERED: POTASSIUM PHOSPHATE INJ 30 MM in NS (IVPB) 250 ML IV ONE (06:00)
[2019-11-29] MEDS: VANCOMYCIN 1250 MG/NS 250 ML IVPB IV SCH ×2 (06:22)
[2019-11-29] MEDS: inSUlin ASPART (NovoLOG) 1 UNIT/0.01 ML (CHARGE PER UNIT) SC SCH ×4 (06:24→21:24)
--- NOTE | 2019-11-29 07:36 | NUR ---
VANCOMYCIN DOSING TROUGH LEVEL 16.1 - CONTINUE CURRENT DOSE OF VANC 1250 MG Q12H
--- NOTE | 2019-11-29 07:38 | Diagnostic Imaging Report ---
Indication: Sepsis, influenza, bilateral pneumonia, COPD exacerbation, diabetes. Examination: Chest 11/29/2019. Comparison made to 11/28/2019 Findings: The heart is stable but prominent, pulmonary vascular congestion noted with bilateral infiltrates unchanged from previous. Findings of mild edema suspected. There may be very small bilateral pleural effusions. There is no pneumothorax. Impression: 1. Stable chest. Dictated by: Dictated on workstation # [id number]
[2019-11-29] MEDS: OSELTAMIVIR 75 MG (TAMIFLU) CAPSULE PO SCH ×2 (08:40→21:07)
--- NOTE | 2019-11-29 09:30 | NUR ---
RECEIVED REPORT FROM AUBREY LANDRY
--- NOTE | 2019-11-29 09:30 | NUR ---
PT TRANSFERRED TO ROOM 422 VIA BED ACCOMPANIED BY THIS RN. PT PERSONAL BELONGINGS SENT WITH PT TO NEW ROOM. REPORT GIVEN TO BRYAN LANDRY FOR CONTINUING CARE.
[2019-11-29] MEDS ORDERED: FURO20TA4 PO (11:29)
[2019-11-29] MEDS ORDERED: DILT180C85 PO (11:29)
[2019-11-29] MEDS ORDERED: POTA10TA PO (11:29)
--- NOTE | 2019-11-29 12:46 | NUR ---
PT LOST IV ACCESS, DR. NEVES NOTIFIED. PT HAS BEEN STUCK MULTIPLE TIMES, MIDLINE REQUESTED.
[2019-11-29] MEDS ORDERED: METO-333 PO (14:07)
[2019-11-29] MEDS ORDERED: LISI10TA2 PO (14:14)
--- NOTE | 2019-11-29 14:22 | NUR ---
RD ASSESSMENT PMHx: COPD; afib; CAD; hypercholesterolemia; HTN; GERD; DM PT INTERACTION: Pt was awake and pleasant during nutrition assessment. Pt states current appetite is "not bad," and was the same prior to admit. Note avg PO intake of 58% of meals recorded, per chart review. Pt states following a regular diet at home and has no issues with chewing/swallowing food. Pt states no recent issues with n/v at this time. Pt states some recent issues with constipation, and that his last BM was 11/26. Note pt not currently on bowel regimen per chart review. Pt states no recent wt changes. Note recent 14# wt loss x6w, per chart review. Pt states current DM management is pretty good, with fasting blood glucoses averaging between 60s-70s. ABNORMAL NUTRITION-RELATED LAB VALUES LOW: cr 0.58; glu 223; phos 2.2 HIGH: Est. kcal needs: 9898-7427 kcal | 20-25 kcal/kg Est. Pro needs: 63-79 g Pro | 0.8-1.0 g Pro/kg PES STATEMENT: Inadequate oral intake (NI-2.1) related to loss of appetite | constipation as evidenced by pt interview | avg PO intake 58% INTERVENTION: Continue with current diet order of CHO 45g/m 1snack diet. Add Glucerna (vary) to meals BID, for increased kcal intake. Provides 220 kcal and 10 g Pro per serving. Will continue to follow and reassess as pt needs and status change. MONITOR/EVALUATE: PO Intake; Plan of Care; Hydration Status; Weight Status; Lab Values Jorge Cabral, MS, RD, LD
--- NOTE | 2019-11-29 16:24 | Progress Note ---
Subjective Subjective/Events-last exam Afebrile, reports feeling slightly improved. Focused Exam Lactate Level 11/26/19 20:55: Lactic Acid Level 3.33*H 11/26/19 22:59: Lactic Acid Level 1.03 11/27/19 07:00: Lactic Acid Level 1.05 Objective Exam Last Set of Vital Signs Vital Signs Date Time Temp Pulse Resp B/P (MAP) Pulse Ox O2 Delivery O2 Flow Rate FiO2 11/29/19 12:20 97 Nasal Cannula 5.00 11/29/19 12:00 36.6 83 18 167/77 (107) Capillary Refill : Less Than 3 SecondsLess Than 3 Seconds I&O Intake and Output 11/29/19 00:00 Intake Total 3682.5 ml Output Total 5350 ml Balance -1667.5 ml Intake Oral 1720 ml IV Total 1962.5 ml Output Urine Total 5350 ml General: Alert, No Acute Distress Lungs: Other (rales on the right) Heart: Regular Rate, No Murmurs Extremities: No Edema Psych/Mental Status: Mood NL Results/Procedures Lab Laboratory Tests 11/28/19 20:48: Glucometer 274H 11/29/19 03:15: White Blood Count 3.0L, Red Blood Count 4.16L, Hemoglobin 11.9L, Hematocrit 40, Mean Corpuscular Volume 96, Mean Corpuscular Hemoglobin 29, Mean Corpuscular Hemoglobin Concent 30L, Red Cell Distribution Width 18.0H, Platelet Count 67L, Mean Platelet Volume 10.9H, Neutrophils (%) (Auto) 84H, Lymphocytes (%) (Auto) 8L, Monocytes (%) (Auto) 7, Eosinophils (%) (Auto) 0, Basophils (%) (Auto) 0, Neutrophils # (Auto) 2.5, Lymphocytes # (Auto) 0.3L, Monocytes # (Auto) 0.2, Eosinophils # (Auto) 0.0, Basophils # (Auto) 0.0, Sodium Level 142, Potassium Level 3.7, Chloride Level 106, Carbon Dioxide Level 27, Anion Gap 9, Blood Urea Nitrogen 16, Creatinine 0.58L, Estimat Glomerular Filtration Rate > 60, BUN /Creatinine Ratio 28, Glucose Level 223H, Calcium Level 8.6, Phosphorus Level 2.2L, Magnesium Level 1.9, Vancomycin Level Trough 18.1 11/29/19 05:18: Vancomycin Level Trough 16.1 11/29/19 12:52: Glucometer 244H 11/29/19 15:39: Glucometer 239H Microbiology 11/27/19 Blood Culture - Preliminary, Resulted No growth 11/27/19 MRSA Screen - Final, Complete MRSA not isolated 11/26/19 Urine Culture - Final, Complete NO GROWTH Assessment/Plan Assessment/Plan Assessment & Plan 1. Influenza B with worsening by basilar infiltrates- oseltamavir, started on zosyn and vancomycin per Dr. Hightower as well as solumedrol 2. History of interstitial pneumonitis 3. New-onset thrombocytopenia- HIT labs pending, hold anticoagulation 4. Type II diabetes mellitus- sliding scale insulin 5. DVT prophylaxis- no pharmacologic due to thrombocytopenia Clinical Quality Measures DVT/VTE Risk/Contraindication: Risk Factor Score Per Nursin RFS Level Per Nursing on Admit: 4+=Very High NORIS NEVES MD Nov 29, 2019 16:24
--- NOTE | 2019-11-29 16:31 | NUR ---
HAD A LIST FAXED OVER FROM [facility] IN [place] AND UPDATED THE MED REC WITH THAT LIST. I COMPARED WHAT HAS BEEN FILLED AT [facility] THE EXT MED HX. THE PATIENT WAS HERE IN SEPTEMBER AND THERE ARE SOME MEDICATIONS THAT I DID NOT LORAINE PAST DUE AT THAT TIME THAT I AM UNABLE TO FIND LAST FILL DATES FOR THIS TIME. LAST TIME THE INFORMATION WAS AVAILABLE ON THE EXT MED HX. PATIENT STATES LAST YEAR HE USED MAIL ORDER BUT IS NOW TRANSITIONING TO [facility]. IN ADDITION TO WHAT IS SHOWN ON THE EXT MED HX ESTEFANIA FILLED: 11-09-19 FARXIGA 5MG DAILY #30 11-09-19 ROSUVASTATIN 20MG DAILY #90 10-25-19 METFORMIN ER 500MG 2 WITH EVENING MEAL #180 10-25-19 METOPROLOL TARTRATE 25MG BID #180 10-13-19 TAMSULOSIN 0.4MG DAILY #30 05-01-19 ADVAIR 250 #1 HE STATES HE GETS HIS ALLOPURINOL, OMEPRAZOLE, AND GABAPENTIN FROM THE [facility] ELIQUIS WAS LAST FILLED 09-28-19 #60 HOWEVER HE STATES HE WAS GIVEN SOME SAMPLES FROM THE OFFICE. HE STATES HE DOES NOT USE THE VENTOLIN OR VOLTAREN OFTEN
--- NOTE | 2019-11-29 16:42 | NUR ---
Text sent to Dr. Bauer for elevated BP 175/79.
[2019-11-30] VITALS (7 sets, daily range): BP systolic 152–168; BP diastolic 79–89
[2019-11-30] MEDS: methylPREDNISolone 40 MG/ML (Solu-MEDROL) VIAL IV SCH ×2 (00:35→05:09)
[2019-11-30] MEDS: RT-ALBUTEROL/IPRATROPIUM 3 ML (DUONEB) VIAL INH SCH ×6 (01:21→22:04)
[2019-11-30] MEDS: aCETylcysteine 20% (MUCOMYST) 30ML SOLN VIAL INH SCH ×6 (01:22→22:04)
[2019-11-30] MEDS: PIPERACILLIN/TAZO 4.5 GM/NS 100 ML IV SCH ×6 (05:09→21:53)
[2019-11-30] MEDS: inSUlin ASPART (NovoLOG) 1 UNIT/0.01 ML (CHARGE PER UNIT) SC SCH ×4 (06:15→21:45)
[2019-11-30 06:50] LABS: BASOPHILS % (AUTO) 0 % (0-10); EOSINOPHILS % (AUTO) 0 % (0-10); HEMATOCRIT 40 % (40-54); HEMOGLOBIN 12.1 G/DL (13.3-17.7); LYMPHOCYTES # (AUTO) 0.5 X 10^3 (1.0-4.0); LYMPHOCYTES % (AUTO) 10 % (12-44); MEAN CORPUSCULAR HEMOGLOBIN 29 PG (25-34); MEAN CORPUSCULAR HGB CONC 30 G/DL (32-36); MEAN CORPUSCULAR VOLUME 96 FL (80-99); MONOCYTES # (AUTO) 0.3 X 10^3 (0.0-1.0); MONOCYTES % (AUTO) 6 % (0-12); NEUTROPHILS # (AUTO) 3.8 X 10^3 (1.8-7.8); NEUTROPHILS % (AUTO) 84 % (42-75); PLATELET COUNT 79 10^3/uL (130-400); RED CELL DISTRIBUTION WIDTH 18.6 % (10.0-14.5); WHITE BLOOD COUNT 4.6 10^3/uL (4.3-11.0)
[2019-11-30 07:18] LABS: BUN/CREATININE RATIO 31; CALCIUM 8.7 MG/DL (8.5-10.1); CARBON DIOXIDE 27 MMOL/L (21-32); CHLORIDE 107 MMOL/L (98-107); CREATININE SERUM 0.51 MG/DL (0.60-1.30); GFR ESTIMATED > 60; GLUCOSE 196 MG/DL (70-105); MAGNESIUM 1.8 MG/DL (1.6-2.4); PHOSPHORUS 2.5 MG/DL (2.3-4.7); POTASSIUM 3.6 MMOL/L (3.6-5.0); SODIUM 142 MMOL/L (135-145)
--- NOTE | 2019-11-30 07:44 | Pulmonary Progress Note ---
Subjective Time Seen by a Provider: 07:42 Sepsis Event Evaluation Height, Weight, BMI Height: 5'6.00" Weight: 179lbs. 8.0oz. [age]yo; 29.40 BMI Method:Stated Exam Exam Vital Signs Date Time Temp Pulse Resp B/P (MAP) Pulse Ox O2 Delivery O2 Flow Rate FiO2 11/30/19 07:21 91 Nasal Cannula 5.00 11/30/19 03:40 36.2 82 18 168/88 (114) 96 Nasal Cannula 4.00 11/30/19 01:22 91 Nasal Cannula 5.00 11/30/19 00:20 36.4 78 20 166/85 (112) 93 Nasal Cannula 4.00 11/30/19 00:00 94 Nasal Cannula 4.00 11/29/19 21:40 92 Nasal Cannula 5.00 11/29/19 21:00 Nasal Cannula 4.00 11/29/19 20:00 36.4 75 20 161/74 (103) 93 Nasal Cannula 4.00 11/29/19 19:07 92 Nasal Cannula 5.00 11/29/19 16:50 70 20 162/87 (112) 11/29/19 16:30 36.3 81 20 175/79 (111) 92 Nasal Cannula 4.00 11/29/19 12:20 97 Nasal Cannula 5.00 11/29/19 12:00 94 Nasal Cannula 4.00 11/29/19 12:00 36.6 83 18 167/77 (107) 95 Nasal Cannula 4.00 11/29/19 10:48 Nasal Cannula 4.00 11/29/19 10:00 36.3 100 18 129/74 (92) 94 Nasal Cannula 4.00 11/29/19 08:00 Nasal Cannula 4.00 11/29/19 08:00 Nasal Cannula 4.00 11/29/19 08:00 149/87 (107) Nasal Cannula 4.00 11/29/19 08:00 66 17 95 Nasal Cannula 5.00 I & O 11/30/19 07:00 Intake Total 1962 ml Output Total 1700 ml Balance 262 ml Height & Weight Height: 5'6.00" Weight: 179lbs. 8.0oz. 81.280615lc; 29.40 BMI Method:Stated General Appearance: Anxious, Chronically ill, Mild Distress HEENT: PERRL/EOMI, Pharynx Normal Neck: Full Range of Motion, Normal Inspection, Non Tender Respiratory: Chest Non Tender, Accessory Muscle Use (With minimal exertion not at rest), Crackles, Decreased Breath Sounds, Rhonci, Wheezing, Other (Diffuse rales and rhonchi with mild expiratory wheezing throughout) Cardiovascular: Regular Rate, Rhythm, No Edema, No Gallop, No JVD, No Murmur, Normal Peripheral Pulses Capillary Refill: Less Than 3 Seconds Gastrointestinal: soft Extremity: Normal Capillary Refill, Normal Inspection, Normal Range of Motion, Non Tender, No Calf Tenderness, No Pedal Edema Neurologic/Psychiatric: Alert Skin: Normal Color, Warm/Dry, Pallor Lymphatic: No Adenopathy Results Lab Laboratory Tests 11/29/19 03:15 11/30/19 06:36 Assessment/Plan Assessment/Plan Acute respiratory distress with hypoxia Bilateral pneumonia with sepsis and influenza B - zosyn COPDAE -Solumedrol -- change to prednisone -DuonNEbs -Oxygen -Advair Hx of severe COPD DOUG SAMUEL DO Nov 30, 2019 07:44
[2019-11-30] MEDS: OSELTAMIVIR 75 MG (TAMIFLU) CAPSULE PO SCH ×2 (09:14→21:44)
--- NOTE | 2019-11-30 10:11 | NUR ---
patient states No SOA; non-productive cough; no surgery within the last 2 weeks 92% HR 96 RR 16 BS BILATERAL BASES COURSE ON 4 L
--- NOTE | 2019-11-30 16:27 | Progress Note ---
Subjective Subjective/Events-last exam Afebrile, feeling better, near baseline on supplemental oxygen, usually uses 3 lpm at home. Objective Exam Last Set of Vital Signs Vital Signs Date Time Temp Pulse Resp B/P (MAP) Pulse Ox O2 Delivery O2 Flow Rate FiO2 11/30/19 14:39 92 Nasal Cannula 4.00 11/30/19 12:00 36.0 79 18 159/79 (105) 11/30/19 10:13 36 Capillary Refill : Less Than 3 SecondsLess Than 3 Seconds I&O Intake and Output 11/30/19 00:00 Intake Total 2090 ml Output Total 1750 ml Balance 340 ml Intake Oral 1830 ml IV Total 260 ml Output Urine Total 1750 ml # Bowel Movements 1 General: Alert, No Acute Distress Lungs: Other (right base rales) Heart: Regular Rate Extremities: No Edema Psych/Mental Status: Mental Status NL Results/Procedures Lab Laboratory Tests 11/29/19 21:20: Glucometer 268H 11/30/19 05:27: Glucometer 261H 11/30/19 06:36: White Blood Count 4.6, Red Blood Count 4.22L, Hemoglobin 12.1L, Hematocrit 40, Mean Corpuscular Volume 96, Mean Corpuscular Hemoglobin 29, Mean Corpuscular Hemoglobin Concent 30L, Red Cell Distribution Width 18.6H, Platelet Count 79L, Mean Platelet Volume 11.0H, Neutrophils (%) (Auto) 84H, Lymphocytes (%) (Auto) 10L, Monocytes (%) (Auto) 6, Eosinophils (%) (Auto) 0, Basophils (%) (Auto) 0, Neutrophils # (Auto) 3.8, Lymphocytes # (Auto) 0.5L, Monocytes # (Auto) 0.3, Eosinophils # (Auto) 0.0, Basophils # (Auto) 0.0, Sodium Level 142, Potassium Level 3.6, Chloride Level 107, Carbon Dioxide Level 27, Anion Gap 8, Blood Urea Nitrogen 16, Creatinine 0.51L, Estimat Glomerular Filtration Rate > 60, BUN/Creatinine Ratio 31, Glucose Level 196H, Calcium Level 8.7, Phosphorus Level 2.5, Magnesium Level 1.8 11/30/19 11:13: Glucometer 323H Microbiology 11/28/19 Gram Stain - Final, Complete 11/28/19 Sputum Culture - Final, Complete Usual upper respiratory zaid 11/27/19 Blood Culture - Preliminary, Resulted No growth 11/26/19 Urine Culture - Final, Complete NO GROWTH Assessment/Plan Assessment/Plan Assessment & Plan 1. Influenza B with worsening by basilar infiltrates- oseltamavir, started on zosyn and vancomycin per Dr. Hightower as well as solumedrol 2. History of interstitial pneumonitis 3. New-onset thrombocytopenia- HIT lab negative, hold anticoagulation 4. Type II diabetes mellitus- sliding scale insulin 5. DVT prophylaxis- no pharmacologic due to thrombocytopenia Clinical Quality Measures DVT/VTE Risk/Contraindication: Risk Factor Score Per Nursin RFS Level Per Nursing on Admit: 4+=Very High NORIS NEVES MD Nov 30, 2019 16:27
[2019-11-30] MEDS ORDERED: FLUTICASONE NASAL SPRAY (FLONASE) 16 GM BTL NS PRN (16:30)
[2019-11-30] MEDS: FUROSEMIDE 20 MG (LASIX) TAB PO SCH (18:14)
[2019-11-30] MEDS ORDERED: RT-ADVAIR HFA 115/21 MCG PER PUFF IH SCH (21:00)
[2019-11-30] MEDS: FERROUS SULF 325 MG (IRON) TAB PO SCH (21:44)
[2019-11-30] MEDS: GABAPENTIN 300 MG (NEURONTIN) CAP PO SCH (21:44)
[2019-11-30] MEDS: ALLOPURINOL 300 MG (ZYLOPRIM) TAB PO SCH (21:44)
[2019-11-30] MEDS: meTOprolol TARTRATE 25 MG (LOPRESSOR) TABLET PO SCH (21:44)
[2019-11-30] MEDS: ROSUVASTATIN 20 MG (CRESTOR) TABLET PO SCH (21:44)
[2019-11-30] MEDS: MONTELUKAST 10 MG (SINGULAIR) TAB PO SCH (21:44)
[2019-11-30] MEDS: ACETAMINOPHEN 500 MG TAB (TYLENOL) PO PRN (21:45)
[2019-12-01] VITALS: BP 131/73
[2019-12-01 04:00] VITALS: BP 129/75
[2019-12-01] MEDS: aCETylcysteine 20% (MUCOMYST) 30ML SOLN VIAL INH SCH ×6 (04:01→23:01)
[2019-12-01] MEDS: RT-ALBUTEROL/IPRATROPIUM 3 ML (DUONEB) VIAL INH SCH ×6 (04:01→23:01)
[2019-12-01] MEDS: PIPERACILLIN/TAZO 4.5 GM/NS 100 ML IV SCH ×4 (05:25→14:49)
[2019-12-01] MEDS: predniSONE 20 MG TAB PO SCH (05:26)
[2019-12-01 05:48] LABS: BUN/CREATININE RATIO 30; CALCIUM 8.5 MG/DL (8.5-10.1); CARBON DIOXIDE 27 MMOL/L (21-32); CHLORIDE 105 MMOL/L (98-107); CREATININE SERUM 0.57 MG/DL (0.60-1.30); GFR ESTIMATED > 60; GLUCOSE 153 MG/DL (70-105); MAGNESIUM 1.6 MG/DL (1.6-2.4); POTASSIUM 3.1 MMOL/L (3.6-5.0); SODIUM 141 MMOL/L (135-145)
[2019-12-01] MEDS: inSUlin ASPART (NovoLOG) 1 UNIT/0.01 ML (CHARGE PER UNIT) SC SCH ×4 (05:51→21:57)
[2019-12-01 05:58] LABS: BASOPHILS % (AUTO) 1 % (0-10); EOSINOPHILS # (AUTO) 0.1 10^3/uL (0.0-0.3); EOSINOPHILS % (AUTO) 1 % (0-10); HEMATOCRIT 39 % (40-54); HEMOGLOBIN 12.2 G/DL (13.3-17.7); LYMPHOCYTES # (AUTO) 1.2 X 10^3 (1.0-4.0); LYMPHOCYTES % (AUTO) 19 % (12-44); MEAN CORPUSCULAR HEMOGLOBIN 30 PG (25-34); MEAN CORPUSCULAR HGB CONC 32 G/DL (32-36); MEAN CORPUSCULAR VOLUME 94 FL (80-99); MEAN PLATELET VOLUME 11.9 FL (7.4-10.4); MONOCYTES # (AUTO) 0.5 X 10^3 (0.0-1.0); MONOCYTES % (AUTO) 8 % (0-12); NEUTROPHILS # (AUTO) 4.3 X 10^3 (1.8-7.8); NEUTROPHILS % (AUTO) 71 % (42-75); RED CELL DISTRIBUTION WIDTH 18.4 % (10.0-14.5); WHITE BLOOD COUNT 6.1 10^3/uL (4.3-11.0)
[2019-12-01 06:00] LABS: PLATELET COUNT 26 10^3/uL (130-400)
--- NOTE | 2019-12-01 06:18 | NUR ---
0601- LAB NOTIFIED THIS RN OF CRITICAL PLATELET COUNT OF 26. 0618- NOTIFIED DR. NEVES OF CRITICAL LAB VALUE AND THAT PATIENT HAS NO S/S OF BLEEDING AT THIS TIME. CONTINUE TO WATCH FOR S/S OF BLEEDING.
[2019-12-01] MEDS ORDERED: KCL 20 MEQ TAB (K-DUR) PO NR (07:15)
[2019-12-01 08:00] VITALS: BP 160/90
--- NOTE | 2019-12-01 08:09 | Progress Note ---
Subjective Subjective/Events-last exam States he is feeling almost back to his normal self. Denies abdominal pain, has not noted any hematuria. Objective Exam Last Set of Vital Signs Vital Signs Date Time Temp Pulse Resp B/P (MAP) Pulse Ox O2 Delivery O2 Flow Rate FiO2 12/01/19 07:25 92 Nasal Cannula 3.00 12/01/19 04:00 35.9 68 18 129/75 (93) 11/30/19 10:13 36 Capillary Refill : Less Than 3 SecondsLess Than 3 Seconds I&O Intake and Output 12/01/19 00:00 Intake Total 1736 ml Output Total 1425 ml Balance 311 ml Intake Oral 1614 ml IV Total 122 ml Output Urine Total 1425 ml # Bowel Movements 4 General: Alert, No Acute Distress Lungs: Other (crackles bilaterally) Heart: Regular Rate, No Murmurs Abdomen: Normal Bowel Sounds, Soft Extremities: No Edema Neuro: Normal Speech Results/Procedures Lab Laboratory Tests 11/30/19 11:13: Glucometer 323H 11/30/19 16:32: Glucometer 315H 11/30/19 20:34: Glucometer 284H 12/01/19 05:20: Sodium Level 141, Potassium Level 3.1L, Chloride Level 105, Carbon Dioxide Level 27, Anion Gap 9, Blood Urea Nitrogen 17, Creatinine 0.57L, Estimat Glomerular Filtration Rate > 60, BUN/Creatinine Ratio 30, Glucose Level 153H, Calcium Level 8.5, Phosphorus Level 3.0, Magnesium Level 1.6 12/01/19 05:50: White Blood Count 6.1, Red Blood Count 4.12L, Hemoglobin 12.2L, Hematocrit 39L, Mean Corpuscular Volume 94, Mean Corpuscular Hemoglobin 30, Mean Corpuscular Hemoglobin Concent 32, Red Cell Distribution Width 18.4H, Platelet Count 26*L, Mean Platelet Volume 11.9H, Neutrophils (%) (Auto) 71, Lymphocytes (%) (Auto) 19, Monocytes (%) (Auto) 8, Eosinophils (%) (Auto) 1, Basophils (%) (Auto) 1, Neutrophils # (Auto) 4.3, Lymphocytes # (Auto) 1.2, Monocytes # (Auto) 0.5, Eosinophils # (Auto) 0.1, Basophils # (Auto) 0.0 Microbiology 11/28/19 Gram Stain - Final, Complete 11/28/19 Sputum Culture - Final, Complete Usual upper respiratory zaid 11/27/19 Blood Culture - Preliminary, Resulted No growth 11/26/19 Urine Culture - Final, Complete NO GROWTH Assessment/Plan Assessment/Plan Assessment & Plan 1. Influenza B with worsening by basilar infiltrates- oseltamavir, started on zosyn and vancomycin per Dr. Hightower as well as solumedrol Changed to prednisone, continued on zosyn and oseltamavir, continues to require 3 lpm supplemental oxygen but this is baseline for him 2. History of interstitial pneumonitis 3. New-onset thrombocytopenia- HIT lab negative, hold anticoagulation Worsening, recheck LFTs and check peripheral smear. DIC labs on 11/27 remarkable only for elevated PTT, possibly due to previous enoxaparin use. Consult Hematology. 4. Type II diabetes mellitus- sliding scale insulin 5. DVT prophylaxis- no pharmacologic due to thrombocytopenia Clinical Quality Measures DVT/VTE Risk/Contraindication: Risk Factor Score Per Nursin RFS Level Per Nursing on Admit: 4+=Very High NORIS NEVES MD Dec 01, 2019 08:09
[2019-12-01 08:28] LABS: ABSOLUTE RETIC # 49 10e9/L (24-90); RETICULOCYTE % 1.15 % (0.50-2.40)
[2019-12-01 08:38] LABS: BILIRUBIN,DIRECT 0.2 MG/DL (0.0-0.3); BILIRUBIN,INDIRECT 0.2 MG/DL; BILIRUBIN,TOTAL 0.4 MG/DL (0.1-1.0); TOTAL PROTEIN 5.5 GM/DL (6.4-8.2)
[2019-12-01 09:02] LABS: BAND NEUTROPHILS 3 %; BASOPHILS % (MANUAL) 0 %; EOSINOPHILS % (MANUAL) 3 %; LYMPHOCYTES % (MANUAL) 28 %; MONOCYTES % (MANUAL) 3 %; NEUTROPHILS % (MANUAL) 63 %
[2019-12-01 09:03] LABS: ANISOCYTOSIS SLIGHT; TEAR DROP CELLS SLIGHT
[2019-12-01] MEDS: PANTOPRAZOLE 20 MG TABLET (PROTONIX) PO SCH (09:28)
[2019-12-01] MEDS: GABAPENTIN 300 MG (NEURONTIN) CAP PO SCH ×2 (09:28→21:57)
[2019-12-01] MEDS: FLUoxetine HCL 20 MG (PROzac) CAP PO SCH (09:28)
[2019-12-01] MEDS: OSELTAMIVIR 75 MG (TAMIFLU) CAPSULE PO SCH (09:28)
[2019-12-01] MEDS: meTOprolol TARTRATE 25 MG (LOPRESSOR) TABLET PO SCH ×2 (09:28→21:58)
[2019-12-01] MEDS: MAGNESIUM OXIDE (MAG-OX)400 MG TAB PO SCH (09:28)
[2019-12-01] MEDS: ALLOPURINOL 300 MG (ZYLOPRIM) TAB PO SCH ×2 (09:54→21:58)
--- NOTE | 2019-12-01 10:47 | Pulmonary Progress Note ---
Subjective Time Seen by a Provider: 10:45 Subjective/Events-last exam SOB and productive cough. Sepsis Event Evaluation Height, Weight, BMI Height: 5'6.00" Weight: 179lbs. 8.0oz. 81.490171ps; 29.40 BMI Method:Stated Exam Exam Vital Signs Date Time Temp Pulse Resp B/P (MAP) Pulse Ox O2 Delivery O2 Flow Rate FiO2 12/01/19 08:00 36.2 75 18 160/90 (113) 91 Nasal Cannula 3.00 12/01/19 07:25 92 Nasal Cannula 3.00 12/01/19 04:00 35.9 68 18 129/75 (93) 95 Nasal Cannula 3.00 12/01/19 00:00 36.0 65 18 131/73 (92) 98 Nasal Cannula 3.00 11/30/19 22:04 97 Nasal Cannula 3.00 11/30/19 21:00 Nasal Cannula 3.00 11/30/19 20:48 37.0 96 22 152/84 (106) 92 Nasal Cannula 3.00 11/30/19 18:47 95 Nasal Cannula 3.00 11/30/19 16:00 36.2 85 20 156/82 (106) 95 Nasal Cannula 4.00 11/30/19 14:39 92 Nasal Cannula 4.00 11/30/19 12:00 36.0 79 18 159/79 (105) 95 Nasal Cannula 4.00 I & O 12/01/19 07:00 Intake Total 2164 ml Output Total 1500 ml Balance 664 ml Height & Weight Height: 5'6.00" Weight: 179lbs. 8.0oz. 81.028052jo; 29.40 BMI Method:Stated General Appearance: Anxious, Chronically ill, Mild Distress HEENT: PERRL/EOMI, Pharynx Normal Neck: Full Range of Motion, Normal Inspection, Non Tender Respiratory: Chest Non Tender, Accessory Muscle Use (With minimal exertion not at rest), Crackles, Decreased Breath Sounds, Rhonci, Wheezing, Other (Diffuse rales and rhonchi with mild expiratory wheezing throughout) Cardiovascular: Regular Rate, Rhythm, No Edema, No Gallop, No JVD, No Murmur, Normal Peripheral Pulses Capillary Refill: Less Than 3 Seconds Gastrointestinal: soft Extremity: Normal Capillary Refill, Normal Inspection, Normal Range of Motion, Non Tender, No Calf Tenderness, No Pedal Edema Neurologic/Psychiatric: Alert Skin: Normal Color, Warm/Dry, Pallor Lymphatic: No Adenopathy Results Lab Laboratory Tests 11/30/19 06:36 12/01/19 05:20 12/01/19 05:50 Assessment/Plan Assessment/Plan Acute respiratory distress with hypoxia - improving Bilateral pneumonia with sepsis and influenza B - zosyn COPDAE - prednisone -DuonNEbs -Oxygen -Advair Hx of severe COPD DOUG SAMUEL DO Dec 01, 2019 10:47
[2019-12-01 12:00] VITALS: BP 126/71
[2019-12-01 16:00] VITALS: BP 144/68
--- NOTE | 2019-12-01 18:47 | CONSULTATION REPORT ---
DATE OF SERVICE: 12/01/2019 The patient is admitted to room 422, bed 1. PHYSICIAN REQUESTING CONSULTATION: Yanira Bauer MD IMPRESSION: 1. A 64-year-old male admitted to the hospital with shortness of breath. Diagnosed with influenza B and probable bacterial pneumonia. Completing treatment with Tamiflu and Zosyn. 3. Pancytopenia, probably related to viral infection. 4. Grade IV thrombocytopenia, rule out DIC versus medication effect versus immune etiology. 5. Interstitial lung disease that is longstanding. 6. History of chronic atrial fibrillation and on anticoagulation with Eliquis. RECOMMENDATIONS: 1. Complete therapy with Zosyn and discontinue this. 2. I will obtain a DIC profile today and repeat it tomorrow morning. 3. Monitor CBC serially. 4. The patient has not received heparin products as he has been on chronic anticoagulation with Eliquis. Agree with holding Eliquis while the platelet count is very low. May resume anticoagulation once her platelet count is more than 50,000. 5. If the platelet count drops to less than 10,000 or any features of bleeding, he will need platelet transfusion. 6. We will follow the patient with you. BRIEF HISTORY: The patient is a 64-year-old male who was brought to the emergency room by his family because of worsening shortness of breath and fevers. He has a history of interstitial lung disease and has been on bronchodilators and steroids fairly regularly. During evaluation, he was found to have influenza B and was admitted to the hospital. Also, he had suspected bacterial pneumonia and was treated initially with Zosyn and vancomycin for a day and the Zosyn was continued for a total of five days. Tamiflu was also started at the time of admission and this is also finishing today. He was noted to have borderline pancytopenia at the time of admission, but had a normal CBCs including platelet count last month during another hospitalization. This was stable throughout his stay except the platelet count dropped significantly today to the 20,000 level and hematology consultation was requested. PAST MEDICAL HISTORY: Significant for interstitial lung disease diagnosed several years ago and gradually worsening. He has history of coronary artery disease with two stent placements in the past. History of long-standing diabetes mellitus and he is insulin requiring now. History of chronic atrial fibrillation and on anticoagulation with Eliquis. He has history of hypertension, hypercholesterolemia and peripheral vascular disease. History of osteoarthritis causing chronic low back pain. History of anxiety and depression. PAST SURGICAL HISTORY: Other surgeries include umbilical hernia repair, tonsillectomy and adenoidectomy, cholecystectomy, bilateral eye surgery. SOCIAL HISTORY: The patient is and lives in [place], [place]. He gives no history of tobacco use and used alcohol socially more than 30 years ago. No history of recreational drug use. 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 He is retired since last several years. He has three children, two sons and a daughter. Both his sons live close by and his daughter lives in [place]. FAMILY HISTORY: Only significant for COPD in his parents. Mother had hypothyroidism and father had osteoarthritis. No other major medical problems in the family that the patient knows of. PHYSICAL EXAMINATION: GENERAL: Showed elderly male, well developed, well nourished, awake and oriented, in mild respiratory distress. VITAL SIGNS: His temperature was 36.2, pulse rate of 60, respirations 20, blood pressure 126/71 with oxygen saturation of 93% on 3 liters of oxygen by nasal cannula. HEENT: Normocephalic, extraocular muscles intact, conjunctivae pink, oral mucosa moist. Mild cushingoid features noted. NECK: Supple, with no JVD. No cervical, supraclavicular, or axillary lymphadenopathy palpable. CHEST: Symmetrical. LUNGS: With diminished breath sounds bilaterally with a few scattered wheezes. CARDIOVASCULAR: Irregular with controlled rate. Grade II early systolic murmur was heard. ABDOMEN: Soft, nontender with no hepatosplenomegaly or other masses palpable. EXTREMITIES: Showed no edema. No significant ecchymosis or petechiae noted. NEUROLOGIC: Showed overall motor strength of 4/5 bilaterally. No focal motor deficits noted. LABORATORY DATA: CBC done today showed WBC 6.1, hemoglobin 12.2, MCV 94, platelet count 26,000 with neutrophil count 4.3 and lymphocyte count 1.2. Absolute reticulocyte count was 49,000. Platelet count done yesterday was 79,000 and 67,000 at the time of admission on 11/26/2019. Chemistry panel done today showed normal electrolytes except potassium level of 3.1. BUN was 17 and creatinine 0.57 with GFR more than 60 mL per minute. Nonfasting glucose was 153. Liver function studies were normal except ALT level of 59 and albumin level of 3.0. At the time of admission, protime was 15.2 with INR of 1.2, fibrinogen was 439 with D-dimer of 0.31. Heparin-induced platelet antibody level checked on 11/27/2019 was negative. Legionella pneumophila and Strep pneumoniae antigens were negative at the time of admission. Thank you for allowing me to participate in this patient's care. I will follow the patient with you and make appropriate recommendations. Job ID: [id number] DocumentID: [id number] Dictated Date: 12/01/2019 16:16:00 Dry Cure Worker Date: 12/01/2019 18:46:59 Dictated By: THEODORE AVERY MD
[2019-12-01] MEDS: ADVAIR HFA 115/21 MCG INHALER 8 GM IH SCH (19:06)
[2019-12-01 20:00] VITALS: BP 140/77
[2019-12-01] MEDS: ROSUVASTATIN 20 MG (CRESTOR) TABLET PO SCH (21:57)
[2019-12-01] MEDS: FERROUS SULF 325 MG (IRON) TAB PO SCH (21:57)
[2019-12-01] MEDS: MONTELUKAST 10 MG (SINGULAIR) TAB PO SCH (21:57)
[2019-12-01] MEDS ORDERED: PIPERACILLIN/TAZO 4.5 GM VIAL (ZOSYN) IV ONE (23:44)
[2019-12-01] MEDS ORDERED: NS (IVPB) 100 ML ONE (23:44)
[2019-12-02] VITALS (9 sets, daily range): BP systolic 126–190; BP diastolic 68–89
[2019-12-02] MEDS: PIPERACILLIN/TAZO 4.5 GM/NS 100 ML IV SCH ×2 (00:13)
[2019-12-02] MEDS: aCETylcysteine 20% (MUCOMYST) 30ML SOLN VIAL INH SCH ×6 (03:00→23:33)
[2019-12-02] MEDS: RT-ALBUTEROL/IPRATROPIUM 3 ML (DUONEB) VIAL INH SCH ×5 (03:00→23:33)
[2019-12-02] MEDS: inSUlin ASPART (NovoLOG) 1 UNIT/0.01 ML (CHARGE PER UNIT) SC SCH ×4 (06:18→21:30)
[2019-12-02] MEDS: predniSONE 20 MG TAB PO SCH (06:49)
[2019-12-02 07:19] LABS: BASOPHILS % (AUTO) 0 % (0-10); EOSINOPHILS # (AUTO) 0.2 10^3/uL (0.0-0.3); EOSINOPHILS % (AUTO) 3 % (0-10); HEMATOCRIT 40 % (40-54); LYMPHOCYTES # (AUTO) 1.3 X 10^3 (1.0-4.0); LYMPHOCYTES % (AUTO) 17 % (12-44); MEAN CORPUSCULAR HEMOGLOBIN 28 PG (25-34); MEAN CORPUSCULAR HGB CONC 30 G/DL (32-36); MEAN CORPUSCULAR VOLUME 94 FL (80-99); MONOCYTES # (AUTO) 0.5 X 10^3 (0.0-1.0); MONOCYTES % (AUTO) 6 % (0-12); NEUTROPHILS # (AUTO) 5.9 X 10^3 (1.8-7.8); NEUTROPHILS % (AUTO) 74 % (42-75); RED CELL DISTRIBUTION WIDTH 18.3 % (10.0-14.5)
[2019-12-02 07:28] LABS: PLATELET COUNT 7 10^3/uL (130-400)
[2019-12-02 07:35] LABS: BUN/CREATININE RATIO 27; CALCIUM 8.5 MG/DL (8.5-10.1); CARBON DIOXIDE 28 MMOL/L (21-32); CHLORIDE 106 MMOL/L (98-107); CREATININE SERUM 0.51 MG/DL (0.60-1.30); GFR ESTIMATED > 60; GLUCOSE 113 MG/DL (70-105); MAGNESIUM 1.4 MG/DL (1.6-2.4); PHOSPHORUS 3.7 MG/DL (2.3-4.7); POTASSIUM 3.1 MMOL/L (3.6-5.0); SODIUM 142 MMOL/L (135-145)
[2019-12-02] MEDS: ADVAIR HFA 115/21 MCG INHALER 8 GM IH SCH ×2 (07:55→19:14)
[2019-12-02 08:06] LABS: FIBRIN DEGRADATION PRODUCTS 0.5 UG/ML (0.00-0.49); PROTHROMBIN TIME PATIENT 13.9 SEC (12.2-14.7)
[2019-12-02] MEDS ORDERED: NS IV 500 ML 500 ML ONE (10:04)
[2019-12-02] MEDS: FLUoxetine HCL 20 MG (PROzac) CAP PO SCH (10:12)
[2019-12-02] MEDS: meTOprolol TARTRATE 25 MG (LOPRESSOR) TABLET PO SCH ×2 (10:13→21:30)
[2019-12-02] MEDS: PANTOPRAZOLE 20 MG TABLET (PROTONIX) PO SCH (10:13)
[2019-12-02] MEDS: GABAPENTIN 300 MG (NEURONTIN) CAP PO SCH ×2 (10:13→21:30)
[2019-12-02] MEDS: MAGNESIUM OXIDE (MAG-OX)400 MG TAB PO SCH (10:13)
[2019-12-02] MEDS: ALLOPURINOL 300 MG (ZYLOPRIM) TAB PO SCH ×2 (10:13→21:30)
[2019-12-02] MEDS ORDERED: NS IV 500 ML 500 ML IV ONE (10:15)
--- NOTE | 2019-12-02 11:33 | Progress Note ---
Subjective Subjective/Events-last exam Afebrile, feeling okay. No signs of active bleeding. Objective Exam Last Set of Vital Signs Vital Signs Date Time Temp Pulse Resp B/P (MAP) Pulse Ox O2 Delivery O2 Flow Rate FiO2 12/02/19 11:15 36.4 70 20 136/68 96 Nasal Cannula 5.00 11/30/19 10:13 36 Capillary Refill : Less Than 3 SecondsLess Than 3 Seconds I&O Intake and Output 12/02/19 00:00 Intake Total 1800 ml Output Total 1025 ml Balance 775 ml Intake Oral 1800 ml Output Urine Total 1025 ml # Voids 1 # Bowel Movements 1 General: Alert, No Acute Distress Lungs: Clear to Auscultation, Normal Air Movement Heart: Regular Rate, No Murmurs Neuro: Normal Speech Psych/Mental Status: Mood NL Results/Procedures Lab Laboratory Tests 12/01/19 16:06: Glucometer 268H 12/01/19 20:59: Glucometer 213H 12/02/19 06:04: Glucometer 146H 12/02/19 06:52: White Blood Count 8.0, Red Blood Count 4.23L, Hemoglobin 12.0L, Hematocrit 40, Mean Corpuscular Volume 94, Mean Corpuscular Hemoglobin 28, Mean Corpuscular Hemoglobin Concent 30L, Red Cell Distribution Width 18.3H, Platelet Count 7*L, Mean Platelet Volume , Neutrophils (%) (Auto) 74, Lymphocytes (%) (Auto) 17, Monocytes (%) (Auto) 6, Eosinophils (%) (Auto) 3, Basophils (%) (Auto) 0, Neutrophils # (Auto) 5.9, Lymphocytes # (Auto) 1.3, Monocytes # (Auto) 0.5, Eosinophils # (Auto) 0.2, Basophils # (Auto) 0.0, Prothrombin Time 13.9, INR Comment 1.0, Fibrinogen 352, D-Dimer 0.50H, Sodium Level 142, Potassium Level 3.1L, Chloride Level 106, Carbon Dioxide Level 28, Anion Gap 8, Blood Urea Nitrogen 14, Creatinine 0.51L, Estimat Glomerular Filtration Rate > 60, BUN/Creatinine Ratio 27, Glucose Level 113H, Calcium Level 8.5, Phosphorus Level 3.7, Magnesium Level 1.4L Microbiology 11/28/19 Gram Stain - Final, Complete 11/28/19 Sputum Culture - Final, Complete Usual upper respiratory zaid 11/27/19 Blood Culture - Preliminary, Resulted No growth 11/26/19 Urine Culture - Final, Complete NO GROWTH Assessment/Plan Assessment/Plan Assessment & Plan 1. Influenza B with worsening by basilar infiltrates- oseltamavir, started on zosyn and vancomycin per Dr. Hightower as well as solumedrol Changed to prednisone, continued on zosyn and oseltamavir, continues to require 3 lpm supplemental oxygen but this is baseline for him Zosyn completed, oseltamavir near end of course, on baseline home supplemental oxygen 2. History of interstitial pneumonitis 3. New-onset thrombocytopenia- HIT lab negative, hold anticoagulation Worsening, recheck LFTs and check peripheral smear. DIC labs on 11/27 remarkable only for elevated PTT, possibly due to previous enoxaparin use. Consult Hematology. Appreciate Hematology recommendations, platelets down to 7 today, platelet transfusion per Heme. 4. Type II diabetes mellitus- sliding scale insulin 5. DVT prophylaxis- no pharmacologic due to thrombocytopenia Clinical Quality Measures DVT/VTE Risk/Contraindication: Risk Factor Score Per Nursin RFS Level Per Nursing on Admit: 4+=Very High NORIS NEVES MD Dec 02, 2019 11:33
--- NOTE | 2019-12-02 12:49 | Pulmonary Progress Note ---
Subjective Time Seen by a Provider: 12:48 Subjective/Events-last exam Pt is doing much better. Sepsis Event Evaluation Height, Weight, BMI Height: 5'6.00" Weight: 179lbs. 8.0oz. 81.028120lc; 29.40 BMI Method:Stated Exam Exam Vital Signs Date Time Temp Pulse Resp B/P (MAP) Pulse Ox O2 Delivery O2 Flow Rate FiO2 12/02/19 11:15 36.4 70 20 136/68 96 Nasal Cannula 5.00 12/02/19 08:00 35.5 79 20 150/75 (100) 92 Nasal Cannula 3.00 12/02/19 07:56 93 Nasal Cannula 5.00 12/02/19 04:00 36.0 67 18 136/79 (98) 95 Nasal Cannula 4.00 12/02/19 03:00 95 Nasal Cannula 3.00 12/02/19 00:00 36.0 53 16 147/74 (98) 97 Nasal Cannula 3.00 12/01/19 23:00 93 Nasal Cannula 3.00 12/01/19 21:40 Nasal Cannula 3.00 12/01/19 20:00 36.0 67 18 140/77 (98) 95 Nasal Cannula 3.00 12/01/19 19:07 84 Nasal Cannula 3.00 12/01/19 16:00 36.2 60 18 144/68 (93) 93 Nasal Cannula 3.00 12/01/19 14:49 93 Nasal Cannula 3.00 I & O 12/02/19 07:00 Intake Total 1700 ml Output Total 1275 ml Balance 425 ml Height & Weight Height: 5'6.00" Weight: 179lbs. 8.0oz. 81.180716mh; 29.40 BMI Method:Stated General Appearance: No Apparent Distress, Anxious, Chronically ill HEENT: PERRL/EOMI, Pharynx Normal Neck: Full Range of Motion, Normal Inspection, Non Tender Respiratory: Chest Non Tender, Accessory Muscle Use (With minimal exertion not at rest), Crackles, Decreased Breath Sounds Cardiovascular: Regular Rate, Rhythm, No Edema, No Gallop, No JVD, No Murmur, Normal Peripheral Pulses Capillary Refill: Less Than 3 Seconds Gastrointestinal: soft Extremity: Normal Capillary Refill, Normal Inspection, Normal Range of Motion, Non Tender, No Calf Tenderness, No Pedal Edema Neurologic/Psychiatric: Alert Skin: Normal Color, Warm/Dry, Pallor Lymphatic: No Adenopathy Results Lab Laboratory Tests 12/01/19 05:20 12/01/19 05:50 12/02/19 06:52 Assessment/Plan Assessment/Plan Acute respiratory distress with hypoxia - improving Bilateral pneumonia with sepsis and influenza B -s/p- zosyn- COPDAE - prednisone -DuonNEbs -Oxygen -Advair Hx of severe COPD DOUG SAMUEL DO Dec 02, 2019 12:49
[2019-12-02] MEDS: FUROSEMIDE 20 MG (LASIX) TAB PO SCH (17:45)
--- NOTE | 2019-12-02 18:10 | Progress Note ---
Standard Progress Note Progress Notes/Assess & Plan Date Seen by a Provider: Dec 02, 2019 Time Seen by a Provider: 18:05 Progress/Assessment & Plan 64-year-old male with interstitial lung disease and oxygen dependent, admitted to the hospital with influenza B and probable pneumonia. Status post antibiotic therapy with Zosyn completed yesterday and completing course of Tamiflu. Significant thrombocytopenia most likely related to the viral infection as well as antibiotics. DIC panel showed d-dimer slightly elevated with dropping fibrinogen level. Platelets 7000 this morning with increased bruising and petechiae, status post platelet transfusion. Recheck DIC panel tomorrow along with CBC and chemistry panel and LDH level. If platelet level is staying low, I will review peripheral smear to rule out TTP. He may also need a bone marrow aspiration and biopsy for the possibility of ITP. Agree with no anticoagulation because of severe thrombocytopenia and increased risk of bleeding. Will follow patient with you. THEODORE AVERY Dec 02, 2019 18:10
[2019-12-02] MEDS: ROSUVASTATIN 20 MG (CRESTOR) TABLET PO SCH (21:30)
[2019-12-02] MEDS: FERROUS SULF 325 MG (IRON) TAB PO SCH (21:30)
[2019-12-02] MEDS: MONTELUKAST 10 MG (SINGULAIR) TAB PO SCH (21:30)
[2019-12-03] VITALS (16 sets, daily range): BP systolic 140–189; BP diastolic 65–107
[2019-12-03] MEDS: RT-ALBUTEROL/IPRATROPIUM 3 ML (DUONEB) VIAL INH SCH ×6 (03:06→22:35)
[2019-12-03] MEDS: aCETylcysteine 20% (MUCOMYST) 30ML SOLN VIAL INH SCH ×5 (03:06→22:35)
[2019-12-03 05:46] LABS: BASOPHILS # (AUTO) 0.1 10^3/uL (0.0-0.1); BASOPHILS % (AUTO) 1 % (0-10); EOSINOPHILS # (AUTO) 0.3 10^3/uL (0.0-0.3); EOSINOPHILS % (AUTO) 3 % (0-10); HEMATOCRIT 40 % (40-54); HEMOGLOBIN 12.5 G/DL (13.3-17.7); LYMPHOCYTES # (AUTO) 1.4 X 10^3 (1.0-4.0); LYMPHOCYTES % (AUTO) 13 % (12-44); MEAN CORPUSCULAR HEMOGLOBIN 29 PG (25-34); MEAN CORPUSCULAR HGB CONC 31 G/DL (32-36); MEAN CORPUSCULAR VOLUME 93 FL (80-99); MONOCYTES # (AUTO) 0.5 X 10^3 (0.0-1.0); MONOCYTES % (AUTO) 5 % (0-12); NEUTROPHILS # (AUTO) 8.4 X 10^3 (1.8-7.8); NEUTROPHILS % (AUTO) 80 % (42-75); WHITE BLOOD COUNT 10.6 10^3/uL (4.3-11.0)
[2019-12-03 05:47] LABS: PLATELET COUNT 4 10^3/uL (130-400)
[2019-12-03 05:58] LABS: FIBRIN DEGRADATION PRODUCTS 0.47 UG/ML (0.00-0.49)
[2019-12-03 06:04] LABS: BUN/CREATININE RATIO 29; CALCIUM 9.1 MG/DL (8.5-10.1); CARBON DIOXIDE 27 MMOL/L (21-32); CHLORIDE 102 MMOL/L (98-107); CREATININE SERUM 0.56 MG/DL (0.60-1.30); GFR ESTIMATED > 60; GLUCOSE 176 MG/DL (70-105); MAGNESIUM 1.4 MG/DL (1.6-2.4); PHOSPHORUS 3.4 MG/DL (2.3-4.7); POTASSIUM 3.1 MMOL/L (3.6-5.0); SODIUM 139 MMOL/L (135-145)
[2019-12-03] MEDS ORDERED: OXYMETAZOLINE (AFRIN) 0.05% NA 30 ML BTL NR (06:15)
--- NOTE | 2019-12-03 06:22 | NUR ---
0555-PT CRITICAL PLATELET OF 4, AND HAS ACTIVE NOSE BLEEDING. DR NEVES NOTIFIED. ORDERED TO TRANSFUSE PLATELETS-AND ASK DR. AVERY REGARDING THE NUMBER OF UNITS. 0600-DR. MOSCOSO NOTIFIED OF PLATELET LEVEL AND NOSE BLEED. ASKED DR NUMBER OF PLATELETS TO BE TRANSFUSED. DR. AVERY ORDERED TO TRANSFUSE 1 UNIT, RECHECK CBC 30 MIN AFTER TRANSFUSION, AND TO PUT 1-2 UNITS OF PLATELETS ON HOLD
[2019-12-03] MEDS: inSUlin ASPART (NovoLOG) 1 UNIT/0.01 ML (CHARGE PER UNIT) SC SCH ×4 (06:26→21:31)
--- NOTE | 2019-12-03 07:03 | NUR ---
CALLED PHARMACY REGARDING AFRIN NASAL SPRAY. THIS NURSE WAS TOLD THAT ONCE THE PHARMACIST VERIFIES IT, THEY WILL SEND IT UP.
[2019-12-03] MEDS: predniSONE 20 MG TAB PO SCH (07:09)
[2019-12-03] MEDS: ADVAIR HFA 115/21 MCG INHALER 8 GM IH SCH ×2 (07:27→18:56)
[2019-12-03] MEDS ORDERED: NS IV 500 ML 500 ML ONE ×2 (07:47→17:37)
--- NOTE | 2019-12-03 08:18 | Pulmonary Progress Note ---
Subjective Time Seen by a Provider: 08:16 Subjective/Events-last exam Persistent SOB no productive cough. Sepsis Event Evaluation Height, Weight, BMI Height: 5'6.00" Weight: 179lbs. 8.0oz. 81.536954ld; 29.40 BMI Method:Stated Exam Exam Vital Signs Date Time Temp Pulse Resp B/P (MAP) Pulse Ox O2 Delivery O2 Flow Rate FiO2 12/03/19 08:08 36.2 73 20 142/84 95 Room Air 12/03/19 07:32 94 Nasal Cannula 4.00 12/03/19 07:27 94 Nasal Cannula 4.00 12/03/19 04:00 36.3 71 20 149/77 (101) 91 Nasal Cannula 5.00 12/03/19 03:07 97 Nasal Cannula 5.00 12/03/19 00:00 36.4 71 22 146/65 (92) 95 Nasal Cannula 5.00 12/02/19 23:33 96 Nasal Cannula 5.00 12/02/19 20:30 36.2 60 22 178/88 (118) 96 Nasal Cannula 5.00 12/02/19 20:20 Nasal Cannula 3.00 12/02/19 19:14 97 Nasal Cannula 5.00 12/02/19 16:00 36.4 62 20 190/89 (122) 96 Nasal Cannula 5.00 12/02/19 14:52 96 Nasal Cannula 5.00 12/02/19 13:00 78 18 128/88 95 Nasal Cannula 5.00 12/02/19 12:00 36.0 62 20 132/74 (93) 98 Nasal Cannula 3.00 12/02/19 11:30 36.0 72 20 126/ 95 Nasal Cannula 5.00 12/02/19 11:15 36.4 70 20 136/68 96 Nasal Cannula 5.00 I & O 12/03/19 07:00 Intake Total 2550 ml Output Total 400 ml Balance 2150 ml Height & Weight Height: 5'6.00" Weight: 179lbs. 8.0oz. 81.188703vu; 29.40 BMI Method:Stated General Appearance: No Apparent Distress, Anxious, Chronically ill HEENT: PERRL/EOMI, Pharynx Normal Neck: Full Range of Motion, Normal Inspection, Non Tender Respiratory: Chest Non Tender, Accessory Muscle Use (With minimal exertion not at rest), Crackles, Decreased Breath Sounds Cardiovascular: Regular Rate, Rhythm, No Edema, No Gallop, No JVD, No Murmur, N ormal Peripheral Pulses Capillary Refill: Less Than 3 Seconds Gastrointestinal: soft Extremity: Normal Capillary Refill, Normal Inspection, Normal Range of Motion, Non Tender, No Calf Tenderness, No Pedal Edema Neurologic/Psychiatric: Alert Skin: Normal Color, Warm/Dry, Pallor Lymphatic: No Adenopathy Results Lab Laboratory Tests 12/02/19 06:52 12/03/19 05:35 Assessment/Plan Assessment/Plan Acute respiratory distress with hypoxia - improving Bilateral pneumonia with sepsis and influenza B -s/p- zosyn- COPDAE - prednisone -DuonNEbs -Oxygen -Advair Hx of severe COPD severe thrombocytopenia -Dr. Santana is following DOUG SAMUEL DO Dec 03, 2019 08:17
--- NOTE | 2019-12-03 08:45 | NUR ---
Dr. Bauer placed nasal packing for bloody nose, platelets infusing at this time.
[2019-12-03] MEDS: MAGNESIUM OXIDE (MAG-OX)400 MG TAB PO SCH (08:55)
[2019-12-03] MEDS: meTOprolol TARTRATE 25 MG (LOPRESSOR) TABLET PO SCH ×2 (08:55→21:32)
[2019-12-03] MEDS: FLUoxetine HCL 20 MG (PROzac) CAP PO SCH (08:55)
[2019-12-03] MEDS: PANTOPRAZOLE 20 MG TABLET (PROTONIX) PO SCH (08:55)
[2019-12-03] MEDS: GABAPENTIN 300 MG (NEURONTIN) CAP PO SCH (08:55)
[2019-12-03] MEDS: ALLOPURINOL 300 MG (ZYLOPRIM) TAB PO SCH (08:57)
--- NOTE | 2019-12-03 09:23 | Progress Note ---
Subjective Subjective/Events-last exam Afebrile. Early this am had onset of nasal bleeding. Platelets down to 4. Objective Exam Last Set of Vital Signs Vital Signs Date Time Temp Pulse Resp B/P (MAP) Pulse Ox O2 Delivery O2 Flow Rate FiO2 12/03/19 08:25 36.2 73 22 140/79 95 Room Air 12/03/19 07:32 4.00 11/30/19 10:13 36 Capillary Refill : Less Than 3 SecondsLess Than 3 Seconds I&O Intake and Output 12/03/19 00:00 Intake Total 2850 ml Output Total 625 ml Balance 2225 ml Intake Oral 2430 ml IV Total 420 ml Output Urine Total 625 ml # Voids 10 # Bowel Movements 2 General: Alert, No Acute Distress HEENT: Other (Mild to moderate degree of bright red blood from left nare) Lungs: Clear to Auscultation, Normal Air Movement Heart: Regular Rate, No Murmurs Neuro: Normal Speech Psych/Mental Status: Mood NL Results/Procedures Lab Laboratory Tests 12/02/19 11:29: Glucometer 276H 12/02/19 17:22: Glucometer 332H 12/02/19 20:43: Glucometer 286H 12/03/19 05:28: Glucometer 195H 12/03/19 05:35: White Blood Count 10.6, Red Blood Count 4.27L, Hemoglobin 12.5L, Hematocrit 40, Mean Corpuscular Volume 93, Mean Corpuscular Hemoglobin 29, Mean Corpuscular Hemoglobin Concent 31L, Red Cell Distribution Width 18.0H, Platelet Count 4*L, Mean Platelet Volume , Neutrophils (%) (Auto) 80H, Lymphocytes (%) (Auto) 13, Monocytes (%) (Auto) 5, Eosinophils (%) (Auto) 3, Basophils (%) (Auto) 1, Neutrophils # (Auto) 8.4H, Lymphocytes # (Auto) 1.4, Monocytes # (Auto) 0.5, Eosinophils # (Auto) 0.3, Basophils # (Auto) 0.1, Fibrinogen 377, D-Dimer 0.47, Sodium Level 139, Potassium Level 3.1L, Chloride Level 102, Carbon Dioxide Level 27, Anion Gap 10, Blood Urea Nitrogen 16, Creatinine 0.56L, Estimat Glomerular Filtration Rate > 60, BUN/Creatinine Ratio 29, Glucose Level 176H, Calcium Level 9.1, Phosphorus Level 3.4, Magnesium Level 1.4L, Lactate Dehydrogenase 299H Microbiology 11/28/19 Gram Stain - Final, Complete 11/28/19 Sputum Culture - Final, Complete Usual upper respiratory zaid 11/27/19 Blood Culture - Final, Complete No growth 11/26/19 Urine Culture - Final, Complete NO GROWTH Assessment/Plan Assessment/Plan Assessment & Plan 1. Influenza B with worsening by basilar infiltrates- oseltamavir, started on zosyn and vancomycin per Dr. Hightower as well as solumedrol Changed to prednisone, continued on zosyn and oseltamavir, continues to require 3 lpm supplemental oxygen but this is baseline for him Zosyn completed, oseltamavir near end of course, on baseline home supplemental oxygen Completed course of Zosyn and oseltamavir. 2. History of interstitial pneumonitis 3. New-onset thrombocytopenia- HIT lab negative, hold anticoagulation Worsening, recheck LFTs and check peripheral smear. DIC labs on 11/27 remarkable only for elevated PTT, possibly due to previous enoxaparin use. Consult Hematology. Appreciate Hematology recommendations, platelets down to 7 today, platelet transfusion per Heme. Continues to trend down, repeat platelet transfusion today, appreciate Hematology recommendations 4. Type II diabetes mellitus- sliding scale insulin 5. Epistaxis- acute onset 2/7 am, improved with pressure and oxymetazoline, but not resolved, Rapid Rhino balloon catheter placed for tamponade with success, monitor closely. 6. DVT prophylaxis- no pharmacologic due to thrombocytopenia Clinical Quality Measures DVT/VTE Risk/Contraindication: Risk Factor Score Per Nursin RFS Level Per Nursing on Admit: 4+=Very High NORIS NEVES MD Dec 03, 2019 09:23
--- NOTE | 2019-12-03 09:27 | Procedure/Intervention Note ---
Procedure Note Preoperative Date of Service: Dec 03, 2019 Time of Procedure: 09:00 Vital Signs Date Time Temp Pulse Resp B/P (MAP) Pulse Ox O2 Delivery O2 Flow Rate FiO2 12/03/19 08:25 36.2 73 22 140/79 95 Room Air 12/03/19 07:32 4.00 11/30/19 10:13 36 Indication Epistaxis not resolved with pressure and oxymetazoline. Risk/Time Out Risk and benefits explained to patient or legal guardian, verbal and written consent given. Time out performed, verified correct patient, correct procedure, correct site, a nd consent documented. Procedure-General Pt in seated sniffing position, Hurricane spray applied to left nare. Rapid Rhino soaked in sterile water for 30 seconds and then placed along floor of left nare, balloon inflated until store consultant cuff round and firm. Hemostasis noted. Inhalation Therapy Aide cuff taped to cheek. Estimated Blood Loss Bleeding: Active (active epistaxis prior to insertion, resolved after) Complications None Stable, normal oxygen saturation on room air. NORIS NEVES MD Dec 03, 2019 09:27
[2019-12-03] MEDS: MAGNESIUM 1 GM/100 ML IVPB 100 ML IV SCH ×2 (09:55→15:56)
[2019-12-03] MEDS ORDERED: IVIG 40 GM/400 ML (PRIVIGEN) IV STA (10:13)
[2019-12-03 10:21] LABS: BASOPHILS % (AUTO) 0 % (0-10); EOSINOPHILS # (AUTO) 0.1 10^3/uL (0.0-0.3); EOSINOPHILS % (AUTO) 1 % (0-10); HEMATOCRIT 39 % (40-54); HEMOGLOBIN 11.9 G/DL (13.3-17.7); LYMPHOCYTES # (AUTO) 0.6 X 10^3 (1.0-4.0); LYMPHOCYTES % (AUTO) 5 % (12-44); MEAN CORPUSCULAR HEMOGLOBIN 29 PG (25-34); MEAN CORPUSCULAR HGB CONC 31 G/DL (32-36); MEAN CORPUSCULAR VOLUME 94 FL (80-99); MONOCYTES # (AUTO) 0.4 X 10^3 (0.0-1.0); MONOCYTES % (AUTO) 3 % (0-12); NEUTROPHILS % (AUTO) 92 % (42-75); RED CELL DISTRIBUTION WIDTH 17.9 % (10.0-14.5); WHITE BLOOD COUNT 13.2 10^3/uL (4.3-11.0)
[2019-12-03 10:22] LABS: PLATELET COUNT 5 10^3/uL (130-400)
[2019-12-03] MEDS ORDERED: methylPREDNISolone 125 MG (Solu-MEDROL) VIAL IVP NR (10:44)
[2019-12-03 10:48] LABS: ANISOCYTOSIS SLIGHT; BAND NEUTROPHILS 2 %; BASOPHILS % (MANUAL) 0 %; EOSINOPHILS % (MANUAL) 1 %; LYMPHOCYTES % (MANUAL) 4 %; MONOCYTES % (MANUAL) 2 %; NEUTROPHILS % (MANUAL) 91 %
[2019-12-03 10:49] LABS: TEAR DROP CELLS SLIGHT
[2019-12-03] MEDS ORDERED: IVIG IV NR ×3 (11:00)
[2019-12-03] MEDS: IMMUNE GLOBULIN IV NR ×2 (11:15→11:34)
[2019-12-03] MEDS ORDERED: IMMUNE GLOBULIN IV SCH (11:30)
--- NOTE | 2019-12-03 12:45 | Progress Note ---
Standard Progress Note Progress Notes/Assess & Plan Date Seen by a Provider: Dec 03, 2019 Time Seen by a Provider: 12:40 Progress/Assessment & Plan 64-year-old male with interstitial lung disease and oxygen dependent, admitted to the hospital with influenza B and probable pneumonia. Status post antibiotic therapy with Zosyn completed yesterday and Tamiflu. Significant thrombocytopenia most likely ITP clinically. Platelets 4000 this morning with nosebleeds since last night, status post platelet transfusion. Repeat CBC showed platelet count of 5000. We will start patient on IVIG 1 g/kg (80 g) stat and repeat the dose tomorrow. We will also start the patient on prednisone 80 mg daily with food with first dose as soon as possible. Repeat CBC after IVIG completed today. Discontinue all medications that is not critical. Dr. Car is coater operator insulation board this weekend and will follow the patient. THEODORE AVERY Dec 03, 2019 12:45
[2019-12-03] MEDS ORDERED: meTOprolol TARTRATE 25 MG (LOPRESSOR) TABLET PO NR (13:00)
--- NOTE | 2019-12-03 13:50 | NUR ---
report given to Britney LANDRY, patient and belongings taken to ICU 12.
--- NOTE | 2019-12-03 13:50 | NUR ---
BEDSIDE REPORT RECIEVED FROM FRANTZ BETTENCOURT. PT ASSESSED. PT DENIES ANY CONCERNS/NEEDS AT THIS TIME. IGG INFUSING AT 160ML/HR AND INCREASED TO 200ML/HR PER RATE SHEET. VITALS ARE STABLE AT THIS TIME. CURRENTLY NO BLOOD SEEN COMING FROM NOSE. CALL LIGHT WITHIN REACH AND PT HAS NO FURTHER CONCERNS/COMPLAINTS. MONITORING CLOSELY.
[2019-12-03] MEDS: POTASSIUM CL 10MEQ/50ML IVPB 50 ML IV SCH ×4 (15:56→17:32)
[2019-12-03 16:41] LABS: BASOPHILS % (AUTO) 0 % (0-10); EOSINOPHILS % (AUTO) 0 % (0-10); HEMATOCRIT 33 % (40-54); HEMOGLOBIN 10.2 G/DL (13.3-17.7); LYMPHOCYTES # (AUTO) 0.4 X 10^3 (1.0-4.0); LYMPHOCYTES % (AUTO) 5 % (12-44); MEAN CORPUSCULAR HEMOGLOBIN 29 PG (25-34); MEAN CORPUSCULAR HGB CONC 31 G/DL (32-36); MEAN CORPUSCULAR VOLUME 94 FL (80-99); MONOCYTES # (AUTO) 0.2 X 10^3 (0.0-1.0); MONOCYTES % (AUTO) 2 % (0-12); NEUTROPHILS # (AUTO) 7.6 X 10^3 (1.8-7.8); NEUTROPHILS % (AUTO) 93 % (42-75); RED CELL DISTRIBUTION WIDTH 17.8 % (10.0-14.5); WHITE BLOOD COUNT 8.2 10^3/uL (4.3-11.0)
[2019-12-03 16:45] LABS: PLATELET COUNT 5 10^3/uL (130-400)
[2019-12-03] MEDS: FERROUS SULF 325 MG (IRON) TAB PO SCH (21:31)
[2019-12-03 21:44] LABS: HEMOGLOBIN 10.4 G/DL (13.3-17.7); MEAN PLATELET VOLUME 10.1 FL (7.4-10.4); RED CELL DISTRIBUTION WIDTH 17.9 % (10.0-14.5); WHITE BLOOD COUNT 6.5 10^3/uL (4.3-11.0)
[2019-12-04] VITALS (7 sets, daily range): BP systolic 144–188; BP diastolic 80–94
[2019-12-04] MEDS: RT-ALBUTEROL/IPRATROPIUM 3 ML (DUONEB) VIAL INH SCH ×6 (01:58→23:00)
[2019-12-04] MEDS: aCETylcysteine 20% (MUCOMYST) 30ML SOLN VIAL INH SCH ×6 (01:59→23:01)
[2019-12-04 03:50] LABS: BASOPHILS % (AUTO) 1 % (0-10); EOSINOPHILS % (AUTO) 0 % (0-10); HEMATOCRIT 32 % (40-54); HEMOGLOBIN 10.2 G/DL (13.3-17.7); LYMPHOCYTES # (AUTO) 0.5 X 10^3 (1.0-4.0); LYMPHOCYTES % (AUTO) 8 % (12-44); MEAN CORPUSCULAR HEMOGLOBIN 29 PG (25-34); MEAN CORPUSCULAR HGB CONC 32 G/DL (32-36); MEAN CORPUSCULAR VOLUME 92 FL (80-99); MONOCYTES # (AUTO) 0.3 X 10^3 (0.0-1.0); MONOCYTES % (AUTO) 4 % (0-12); NEUTROPHILS # (AUTO) 5.6 X 10^3 (1.8-7.8); NEUTROPHILS % (AUTO) 88 % (42-75); RED CELL DISTRIBUTION WIDTH 17.9 % (10.0-14.5); WHITE BLOOD COUNT 6.3 10^3/uL (4.3-11.0)
[2019-12-04 03:54] LABS: PLATELET COUNT 33 10^3/uL (130-400)
[2019-12-04 04:12] LABS: BUN/CREATININE RATIO 35; CALCIUM 9.1 MG/DL (8.5-10.1); CARBON DIOXIDE 26 MMOL/L (21-32); CHLORIDE 103 MMOL/L (98-107); CREATININE SERUM 0.55 MG/DL (0.60-1.30); GFR ESTIMATED > 60; GLUCOSE 267 MG/DL (70-105); MAGNESIUM 1.7 MG/DL (1.6-2.4); PHOSPHORUS 3.2 MG/DL (2.3-4.7); POTASSIUM 3.5 MMOL/L (3.6-5.0); SODIUM 137 MMOL/L (135-145)
--- NOTE | 2019-12-04 06:01 | Pulmonary Progress Note ---
Subjective Time Seen by a Provider: 05:58 Subjective/Events-last exam Transfered to ICU secondary to severe low platelets Sepsis Event Evaluation Height, Weight, BMI Height: 5'6.00" Weight: 179lbs. 8.0oz. 81.655243or; 29.40 BMI Method:Stated Exam Exam Vital Signs Date Time Temp Pulse Resp B/P (MAP) Pulse Ox O2 Delivery O2 Flow Rate FiO2 12/04/19 05:00 76 15 164/86 (112) 92 Nasal Cannula 3.00 12/04/19 03:37 36.2 12/04/19 03:30 64 18 188/94 (125) 94 Nasal Cannula 3.00 12/04/19 01:58 95 Nasal Cannula 3.00 12/04/19 01:00 62 12/04/19 00:00 36.3 63 15 171/89 (116) 90 Nasal Cannula 3.00 12/03/19 23:00 66 15 162/82 (108) 94 Nasal Cannula 3.00 12/03/19 22:35 94 Nasal Cannula 3.00 12/03/19 22:00 65 16 163/93 (116) 95 Nasal Cannula 3.00 12/03/19 21:00 36.2 85 17 177/95 93 Nasal Cannula 3.00 12/03/19 21:00 93 Nasal Cannula 3.00 12/03/19 21:00 85 17 177/95 (122) 93 Nasal Cannula 3.00 12/03/19 20:00 66 16 179/107 (131) 95 Nasal Cannula 3.00 12/03/19 19:18 36.3 12/03/19 19:18 36.3 12/03/19 19:00 66 22 167/91 (116) 100 Nasal Cannula 3.00 12/03/19 19:00 66 12/03/19 18:56 94 Nasal Cannula 2.50 12/03/19 18:23 36.0 74 24 167/92 90 Room Air 12/03/19 18:02 36.4 73 20 169/87 94 Nasal Cannula 3.00 12/03/19 16:00 36.6 67 19 158/87 (110) 94 Nasal Cannula 3.00 12/03/19 14:03 72 12/03/19 14:00 66 35 169/92 (117) 95 Nasal Cannula 3.00 12/03/19 13:57 94 Room Air 12/03/19 13:53 93 Room Air 12/03/19 13:50 93 Room Air 12/03/19 12:07 36.4 67 18 189/88 (121) 94 Nasal Cannula 3.00 12/03/19 10:51 94 Nasal Cannula 3.00 12/03/19 10:46 94 Nasal Cannula 4.00 12/03/19 09:50 36.3 69 18 151/74 92 Room Air 12/03/19 08:25 36.2 73 22 140/79 95 Room Air 12/03/19 08:08 36.2 73 20 142/84 95 Room Air 12/03/19 08:00 36.2 73 20 147/84 (105) 95 Nasal Cannula 3.00 12/03/19 08:00 Nasal Cannula 3.00 12/03/19 07:32 94 Nasal Cannula 4.00 12/03/19 07:27 94 Nasal Cannula 4.00 I & O 12/04/19 07:00 Intake Total 1440 ml Output Total 1450 ml Balance -10 ml Height & Weight Height: 5'6.00" Weight: 179lbs. 8.0oz. 81.167266if; 29.40 BMI Method:Stated General Appearance: No Apparent Distress, Anxious, Chronically ill HEENT: PERRL/EOMI, Pharynx Normal Neck: Full Range of Motion, Normal Inspection, Non Tender Respiratory: Chest Non Tender, Accessory Muscle Use, Crackles, Decreased Breath Sounds Cardiovascular: Regular Rate, Rhythm, No Edema, No Gallop, No JVD, No Murmur, Normal Peripheral Pulses Capillary Refill: Less Than 3 Seconds Gastrointestinal: soft Extremity: Normal Capillary Refill, Normal Inspection, Normal Range of Motion, Non Tender, No Calf Tenderness, No Pedal Edema Neurologic/Psychiatric: Alert Skin: Normal Color, Warm/Dry, Pallor Lymphatic: No Adenopathy Results Lab Laboratory Tests 12/02/19 06:52 12/03/19 05:35 12/03/19 10:10 12/03/19 16:28 12/03/19 21:34 12/04/19 03:40 Assessment/Plan Assessment/Plan Acute respiratory distress with hypoxia - improving Bilateral pneumonia with sepsis and influenza B -s/p- zosyn- COPDAE - prednisone -DuonNEbs -Oxygen -Advair Hx of severe COPD severe thrombocytopenia -Dr. Santana is following -Monitor close -s/p 2 units of platelets -IVIG DOUG SAMUEL DO Dec 04, 2019 06:01
[2019-12-04] MEDS: POTASSIUM CL 10MEQ/50ML IVPB 50 ML IV SCH ×4 (06:22→09:00)
[2019-12-04] MEDS: inSUlin ASPART (NovoLOG) 1 UNIT/0.01 ML (CHARGE PER UNIT) SC SCH ×4 (06:22→20:59)
[2019-12-04] MEDS: MAGNESIUM 1 GM/100 ML IVPB 100 ML IV SCH ×2 (06:22→07:00)
[2019-12-04] MEDS: ADVAIR HFA 115/21 MCG INHALER 8 GM IH SCH ×2 (06:59→20:06)
[2019-12-04] MEDS ORDERED: IMMUNE GLOBULIN IV NR (09:00)
[2019-12-04] MEDS ORDERED: predniSONE 5 MG TAB PO SCH (09:00)
[2019-12-04] MEDS: meTOprolol TARTRATE 25 MG (LOPRESSOR) TABLET PO SCH ×2 (09:21→20:59)
[2019-12-04] MEDS: PANTOPRAZOLE 20 MG TABLET (PROTONIX) PO SCH (09:21)
[2019-12-04] MEDS: MAGNESIUM OXIDE (MAG-OX)400 MG TAB PO SCH (09:21)
[2019-12-04] MEDS: predniSONE 20 MG TAB PO SCH (10:15)
[2019-12-04] MEDS: IMMUNE GLOBULIN IV NR ×2 (10:24→13:17)
--- NOTE | 2019-12-04 13:10 | Progress Note ---
Standard Progress Note Progress Notes/Assess & Plan Date Seen by a Provider: Dec 04, 2019 Time Seen by a Provider: 13:04 Progress/Assessment & Plan 64-year-old male with oxygen dependent interstitial lung disease was admitted with pneumonia and influenza B. Status post antibiotic therapy with Zosyn and Tamiflu. Developed severe thrombocytopenia with yissel 4000 platelets/ul and refractory epistaxis from both nares. Repeat CBC after one unit platelet transfusion showed platelet count of 5000. Yesterday he was started on IVIG 1 g/kg (80 g) and prednisone 1 mg/kg. He had a good response to IVIG, with improvement of platelets to 32,000/ul last night. Bleeding in his right nares stopped sometime last night but he still has the nasal tampon in his left nares. Given the degree of his thrombocytopenia and response to IVIG and steroids, ITP is the working diagnosis. He is receiving his second of two IVIG doses today and should continue on high dose prednisone. We will continue to monitor on this current regimen. PIA DESIR MD Dec 04, 2019 13:10
--- NOTE | 2019-12-04 13:12 | Progress Note - Hospitalist ---
Subjective HPI/CC On Admission Date Seen by Provider: Dec 04, 2019 Time Seen by Provider: 12:00 PT ARRIVES VIA POV FROM HOME WITH C/O SHORTNESS OF BREATH--PT HAS COPD AND "PIGEON OR URIBE'S LUNG" / INTERSTITIAL LUNG DISEASE AND WEARS HOME O2 AT 3 1/2 L/NC CONTINUOUSLY, BUT HAD TO INCREASE IT TO 5L/NC TODAY--SHORTNESS OF BREATH IS MUCH WORSE TODAY/ALL DAY PT HAD ALBUTEROL NEB TREATMENT AT 1600, BUT HAS NOT USED ANY INHALERS TODAY HAS HAD INCREASED COUGH TODAY PT HAS ALSO HAD SUBJECTIVE FEVER AND CHILLS TODAY--HAS NOT TAKEN ANYTHING FOR THOSE SYMPTOMS NO CHEST PAIN NO SWELLING IN LEGS / FEET HAS BEEN SICK FOR THE LAST WEEK WITH "BRONCHITIS" --STATES HER FLU TEST WAS NEGATIVE. BOTH PT AND HAVE HAD FLU SHOTS THIS SEASON, WELL PNEUMONIA VACCINES. PT WAS HOSPITALIZED 10/05-10/14 FOR PNEUMONIA, AND HAS HAD MULTIPLE ADMITS FOR SAME, WELL OTHER MEDICAL PROBLEMS PT ALSO HAS CHRONIC ATRIAL FIBRILLATION AND IS ON ELIQUIS--HAS NOT HAD PM DOSE. PT HAS CAD WITH STENTS X 2 PT IS INSULIN DEPENDENT DIABETIC. Patient resting comfortably with mild tachypnea. Loose nonproductive cough with no worsening of shortness of breath overnight. He reports little bit of a chronic tight sensation in the chest denies pain reporting no sputum production with the abrupt onset of symptoms sometime yesterday morning early a.m. Subjective/Events-last exam Patient feels better IVIG given and platelets 33k No cough noted Nebs tolerated Denies pain Review of Systems General: Fatigue Objective Exam Vital Signs Vital Signs Date Time Temp Pulse Resp B/P (MAP) Pulse Ox O2 Delivery O2 Flow Rate FiO2 12/04/19 16:00 36.7 70 24 167/87 (113) 97 Nasal Cannula 3.00 11/30/19 10:13 36 Capillary Refill : Less Than 3 SecondsLess Than 3 Seconds General Appearance: No Apparent Distress, WD/WN, Chronically ill Respiratory: Chest Non Tender, Lungs Clear, Normal Breath Sounds, No Accessory Muscle Use, No Respiratory Distress Cardiovascular: Regular Rate, Rhythm, No Edema, No Gallop, No JVD, No Murmur, Normal Peripheral Pulses Neurologic/Psychiatric: Alert, Oriented x3, No Motor/Sensory Deficits, Normal Mood/Affect Results/Procedures Lab Laboratory Tests 12/03/19 16:28 12/03/19 21:34 12/04/19 03:40 Patient resulted labs reviewed. Assessment/Plan Assessment and Plan Assess & Plan/Chief Complaint Assessment: Assessment: Acute respiratory distress with hypoxia - improving Bilateral pneumonia with sepsis and influenza B s/p full treatment AECOPD Hx of severe COPD Severe thrombocytopenia s/p IVIG Plan: Monitor platelets Monitor for falls Critical Care Critically Ill Patient Diagnosis/Problems Diagnosis/Problems (1) Bilateral pneumonia Status: Acute (2) Chronic respiratory failure with hypoxia, on home O2 therapy Status: Acute (3) COPD exacerbation Status: Acute (4) Chronic atrial fibrillation Status: Acute (5) Influenza B Status: Acute (6) Acute respiratory distress Status: Acute Clinical Quality Measures DVT/VTE Risk/Contraindication: Risk Factor Score Per Nursin RFS Level Per Nursing on Admit: 4+=Very High ANASTASIIA SOTO DO Dec 04, 2019 13:12
[2019-12-04] MEDS: FUROSEMIDE 20 MG (LASIX) TAB PO SCH (17:53)
[2019-12-04] MEDS: ACETAMINOPHEN 500 MG TAB (TYLENOL) PO PRN (20:58)
[2019-12-04] MEDS: FERROUS SULF 325 MG (IRON) TAB PO SCH (20:59)
[2019-12-05] VITALS (7 sets, daily range): BP systolic 160–170; BP diastolic 87–99
[2019-12-05 03:22] LABS: BASOPHILS % (AUTO) 0 % (0-10); EOSINOPHILS % (AUTO) 0 % (0-10); HEMATOCRIT 33 % (40-54); HEMOGLOBIN 10.3 G/DL (13.3-17.7); LYMPHOCYTES # (AUTO) 0.7 X 10^3 (1.0-4.0); LYMPHOCYTES % (AUTO) 7 % (12-44); MEAN CORPUSCULAR HEMOGLOBIN 30 PG (25-34); MEAN CORPUSCULAR HGB CONC 32 G/DL (32-36); MEAN CORPUSCULAR VOLUME 93 FL (80-99); MEAN PLATELET VOLUME 11.8 FL (7.4-10.4); MONOCYTES # (AUTO) 0.6 X 10^3 (0.0-1.0); MONOCYTES % (AUTO) 6 % (0-12); NEUTROPHILS # (AUTO) 8.7 X 10^3 (1.8-7.8); NEUTROPHILS % (AUTO) 87 % (42-75); PLATELET COUNT 58 10^3/uL (130-400); RED CELL DISTRIBUTION WIDTH 18.1 % (10.0-14.5)
[2019-12-05 03:39] LABS: BUN/CREATININE RATIO 37; CALCIUM 9.2 MG/DL (8.5-10.1); CARBON DIOXIDE 24 MMOL/L (21-32); CHLORIDE 104 MMOL/L (98-107); CREATININE SERUM 0.62 MG/DL (0.60-1.30); GFR ESTIMATED > 60; GLUCOSE 230 MG/DL (70-105); MAGNESIUM 1.7 MG/DL (1.6-2.4); PHOSPHORUS 3.1 MG/DL (2.3-4.7); POTASSIUM 3.6 MMOL/L (3.6-5.0); SODIUM 136 MMOL/L (135-145)
[2019-12-05] MEDS: RT-ALBUTEROL/IPRATROPIUM 3 ML (DUONEB) VIAL INH SCH ×6 (03:42→22:37)
[2019-12-05] MEDS: POTASSIUM CL 10MEQ/50ML IVPB 50 ML IV SCH ×4 (04:58→08:19)
[2019-12-05] MEDS: inSUlin ASPART (NovoLOG) 1 UNIT/0.01 ML (CHARGE PER UNIT) SC SCH ×4 (04:59→20:12)
[2019-12-05] MEDS: MAGNESIUM 1 GM/100 ML IVPB 100 ML IV SCH ×2 (04:59→06:32)
--- NOTE | 2019-12-05 05:43 | Pulmonary Progress Note ---
Subjective Time Seen by a Provider: 05:42 Subjective/Events-last exam SOB appears to be stable. Sepsis Event Evaluation Height, Weight, BMI Height: 5'6.00" Weight: 179lbs. 8.0oz. 81.515974dt; 29.40 BMI Method:Stated Exam Exam Vital Signs Date Time Temp Pulse Resp B/P (MAP) Pulse Ox O2 Delivery O2 Flow Rate FiO2 12/05/19 03:42 93 Nasal Cannula 3.00 12/05/19 03:12 36.6 70 20 170/96 (120) 93 Nasal Cannula 3.00 12/05/19 01:00 62 12/05/19 00:55 36.5 71 94 32 12/05/19 00:00 36.5 71 14 163/97 (119) 94 Nasal Cannula 3.00 12/05/19 00:00 71 24 163/97 (119) Nasal Cannula 3.00 12/04/19 23:01 94 Nasal Cannula 3.00 12/04/19 21:00 94 Nasal Cannula 3.00 12/04/19 20:06 91 Nasal Cannula 3.00 12/04/19 19:36 36.6 72 18 164/84 (110) 94 Nasal Cannula 3.00 12/04/19 19:00 74 12/04/19 16:00 36.7 70 24 167/87 (113) 97 Nasal Cannula 3.00 12/04/19 12:55 86 12/04/19 12:00 36.4 72 12 144/80 (101) 96 Nasal Cannula 3.00 12/04/19 11:24 95 Nasal Cannula 3.00 12/04/19 09:00 93 Nasal Cannula 3.00 12/04/19 08:00 72 22 158/91 (113) 95 Nasal Cannula 3.00 12/04/19 07:09 94 Nasal Cannula 3.00 12/04/19 07:00 88 12/04/19 06:59 94 Nasal Cannula 3.00 I & O 12/05/19 07:00 Intake Total 2150 ml Output Total 1275 ml Balance 875 ml Height & Weight Height: 5'6.00" Weight: 179lbs. 8.0oz. 81.809766qf; 29.40 BMI Method:Stated General Appearance: No Apparent Distress, WD/WN, Chronically ill HEENT: PERRL/EOMI, Pharynx Normal Neck: Full Range of Motion, Normal Inspection, Non Tender Respiratory: Chest Non Tender, No Accessory Muscle Use, No Respiratory Distress, Crackles, Decreased Breath Sounds Cardiovascular: Regular Rate, Rhythm, No Edema, No Gallop, No JVD, No Murmur, Normal Peripheral Pulses Capillary Refill: Less Than 3 Seconds Gastrointestinal: soft Extremity: Normal Capillary Refill, Normal Inspection, Normal Range of Motion, Non Tender, No Calf Tenderness, No Pedal Edema Neurologic/Psychiatric: Alert, Oriented x3, No Motor/Sensory Deficits, Normal Mood/Affect Skin: Normal Color, Warm/Dry, Pallor Lymphatic: No Adenopathy Results Lab Laboratory Tests 12/03/19 10:10 12/03/19 16:28 12/03/19 21:34 12/04/19 03:40 12/05/19 03:10 Assessment/Plan Assessment/Plan Acute respiratory distress with hypoxia - improving Bilateral pneumonia with sepsis and influenza B -s/p- zosyn- COPDAE - prednisone -DuonNEbs -Oxygen -Advair Hypoma, hypokalemia -Replace HTN -Add norvasc and lisinopril -Hydralazine PRN Hx of severe COPD severe thrombocytopenia -Dr. Santana is following -Monitor close -s/p 2 units of platelets -IVIG DOUG SAMUEL DO Dec 05, 2019 05:43
[2019-12-05] MEDS ORDERED: hydrALAZINE (APESOLINE) 20 MG/ML VIAL IV PRN (05:45)
[2019-12-05] MEDS: ADVAIR HFA 115/21 MCG INHALER 8 GM IH SCH ×2 (07:47→19:20)
[2019-12-05] MEDS: PANTOPRAZOLE 20 MG TABLET (PROTONIX) PO SCH (08:08)
[2019-12-05] MEDS: meTOprolol TARTRATE 25 MG (LOPRESSOR) TABLET PO SCH ×2 (08:08→20:12)
[2019-12-05] MEDS: predniSONE 20 MG TAB PO SCH (08:08)
[2019-12-05] MEDS: MAGNESIUM OXIDE (MAG-OX)400 MG TAB PO SCH (08:08)
[2019-12-05] MEDS: lisINopril 20 MG (PRINIVIL) TABLET PO SCH (08:09)
--- NOTE | 2019-12-05 13:36 | Progress Note - Hospitalist ---
Subjective HPI/CC On Admission Date Seen by Provider: Dec 05, 2019 Time Seen by Provider: 12:00 PT ARRIVES VIA POV FROM HOME WITH C/O SHORTNESS OF BREATH--PT HAS COPD AND "PIGEON OR URIBE'S LUNG" / INTERSTITIAL LUNG DISEASE AND WEARS HOME O2 AT 3 1/2 L/NC CONTINUOUSLY, BUT HAD TO INCREASE IT TO 5L/NC TODAY--SHORTNESS OF BREATH IS MUCH WORSE TODAY/ALL DAY PT HAD ALBUTEROL NEB TREATMENT AT 1600, BUT HAS NOT USED ANY INHALERS TODAY HAS HAD INCREASED COUGH TODAY PT HAS ALSO HAD SUBJECTIVE FEVER AND CHILLS TODAY--HAS NOT TAKEN ANYTHING FOR THOSE SYMPTOMS NO CHEST PAIN NO SWELLING IN LEGS / FEET HAS BEEN SICK FOR THE LAST WEEK WITH "BRONCHITIS" --STATES HER FLU TEST WAS NEGATIVE. BOTH PT AND HAVE HAD FLU SHOTS THIS SEASON, WELL PNEUMONIA VACCINES. PT WAS HOSPITALIZED 10/05-10/14 FOR PNEUMONIA, AND HAS HAD MULTIPLE ADMITS FOR SAME, WELL OTHER MEDICAL PROBLEMS PT ALSO HAS CHRONIC ATRIAL FIBRILLATION AND IS ON ELIQUIS--HAS NOT HAD PM DOSE. PT HAS CAD WITH STENTS X 2 PT IS INSULIN DEPENDENT DIABETIC. Patient resting comfortably with mild tachypnea. Loose nonproductive cough with no worsening of shortness of breath overnight. He reports little bit of a chronic tight sensation in the chest denies pain reporting no sputum production with the abrupt onset of symptoms sometime yesterday morning early a.m. Subjective/Events-last exam Patient doing better Transferring to 5th floor step down Checked meds and labs No pain reported Mild epistaxis noted Platelets 58k Less dyspneic Review of Systems General: Fatigue HEENT: Other (epistaxis) Objective Exam Vital Signs Vital Signs Date Time Temp Pulse Resp B/P (MAP) Pulse Ox O2 Delivery O2 Flow Rate FiO2 12/05/19 16:00 36.4 65 21 162/87 (112) 95 Nasal Cannula 3.00 12/05/19 00:55 32 Capillary Refill : Less Than 3 SecondsLess Than 3 Seconds General Appearance: No Apparent Distress, WD/WN, Chronically ill Respiratory: Chest Non Tender, Lungs Clear, No Accessory Muscle Use, No Respiratory Distress, Crackles Cardiovascular: Regular Rate, Rhythm, No Edema, No Gallop, No JVD, No Murmur, Normal Peripheral Pulses Neurologic/Psychiatric: Alert, Oriented x3, No Motor/Sensory Deficits, Normal Mood/Affect Results/Procedures Lab Laboratory Tests 12/05/19 03:10 Patient resulted labs reviewed. Assessment/Plan Assessment and Plan Assess & Plan/Chief Complaint Assessment: Acute respiratory distress with hypoxia - improving Bilateral pneumonia with sepsis and influenza B s/p full treatment AECOPD Hx of severe COPD Severe thrombocytopenia s/p IVIG Plan: Monitor platelets Monitor for falls Critical Care Critically Ill Patient Diagnosis/Problems Diagnosis/Problems (1) Bilateral pneumonia Status: Acute (2) Chronic respiratory failure with hypoxia, on home O2 therapy Status: Acute (3) COPD exacerbation Status: Acute (4) Chronic atrial fibrillation Status: Acute (5) Influenza B Status: Acute (6) Acute respiratory distress Status: Acute (7) Thrombocytopenia Clinical Quality Measures DVT/VTE Risk/Contraindication: Risk Factor Score Per Nursin RFS Level Per Nursing on Admit: 4+=Very High ANASTASIIA SOTO DO Dec 05, 2019 13:36
--- NOTE | 2019-12-05 14:04 | Progress Note ---
Standard Progress Note Progress Notes/Assess & Plan Date Seen by a Provider: Dec 05, 2019 Time Seen by a Provider: 14:00 Progress/Assessment & Plan 64-year-old male with oxygen dependent interstitial lung disease was admitted with pneumonia and influenza B. Status post antibiotic therapy with Zosyn and Tamiflu. Developed severe ITP with yissel 4000 platelets/ul and refractory epistaxis from both nares. CBC checked after one unit platelet transfusion showed platelet count of 5000. He was started on IVIG 1 g/kg (80 g) and prednisone 1 mg/kg on 12/03/19. He had a good response to IVIG, with improvement of platelets to 32,000/ul the next day. This morning, platelet count further improved to 58,000. Patient does report a transient episode of a lot of blood draining down the back of his throat but no other bleeding episodes. Patient completed IVIG yesterday and will continue on high dose prednisone without tapering for now. We will continue to monitor on this current regimen. PIA DESIR MD Dec 05, 2019 14:04
[2019-12-05] MEDS: FERROUS SULF 325 MG (IRON) TAB PO SCH (20:12)
[2019-12-06] VITALS: BP 152/77
[2019-12-06] MEDS: RT-ALBUTEROL/IPRATROPIUM 3 ML (DUONEB) VIAL INH SCH ×3 (01:43→10:33)
[2019-12-06 03:36] LABS: BASOPHILS % (AUTO) 0 % (0-10); EOSINOPHILS % (AUTO) 0 % (0-10); HEMATOCRIT 33 % (40-54); HEMOGLOBIN 10.7 G/DL (13.3-17.7); LYMPHOCYTES # (AUTO) 1.1 X 10^3 (1.0-4.0); LYMPHOCYTES % (AUTO) 9 % (12-44); MEAN CORPUSCULAR HEMOGLOBIN 30 PG (25-34); MEAN CORPUSCULAR HGB CONC 32 G/DL (32-36); MEAN CORPUSCULAR VOLUME 92 FL (80-99); MEAN PLATELET VOLUME 10.1 FL (7.4-10.4); MONOCYTES # (AUTO) 0.9 X 10^3 (0.0-1.0); MONOCYTES % (AUTO) 8 % (0-12); NEUTROPHILS # (AUTO) 9.6 X 10^3 (1.8-7.8); NEUTROPHILS % (AUTO) 83 % (42-75); PLATELET COUNT 93 10^3/uL (130-400); RED CELL DISTRIBUTION WIDTH 18.7 % (10.0-14.5); WHITE BLOOD COUNT 11.6 10^3/uL (4.3-11.0)
[2019-12-06 03:50] VITALS: BP 171/89
[2019-12-06 03:53] LABS: BUN/CREATININE RATIO 37; CALCIUM 8.9 MG/DL (8.5-10.1); CARBON DIOXIDE 25 MMOL/L (21-32); CHLORIDE 103 MMOL/L (98-107); GFR ESTIMATED > 60; GLUCOSE 165 MG/DL (70-105); MAGNESIUM 1.5 MG/DL (1.6-2.4); PHOSPHORUS 2.9 MG/DL (2.3-4.7); POTASSIUM 3.5 MMOL/L (3.6-5.0); SODIUM 136 MMOL/L (135-145)
[2019-12-06] MEDS: inSUlin ASPART (NovoLOG) 1 UNIT/0.01 ML (CHARGE PER UNIT) SC SCH ×2 (06:33→11:00)
[2019-12-06 08:36] VITALS: BP 160/91
[2019-12-06] MEDS: PANTOPRAZOLE 20 MG TABLET (PROTONIX) PO SCH (08:48)
[2019-12-06] MEDS: MAGNESIUM OXIDE (MAG-OX)400 MG TAB PO SCH (08:48)
[2019-12-06] MEDS: meTOprolol TARTRATE 25 MG (LOPRESSOR) TABLET PO SCH (08:48)
[2019-12-06] MEDS: lisINopril 20 MG (PRINIVIL) TABLET PO SCH (08:48)
[2019-12-06] MEDS: predniSONE 20 MG TAB PO SCH (08:49)
--- NOTE | 2019-12-06 10:00 | NUR ---
CM FINALIZED DISCHARGE PLAN: Patient is dismissing to home today. Visited with him about any anticipated discharge needs. He reports that he wears oxygen prior to this hospitalization. He does not have a portable tank in his room. He reports that his will bring oxygen with her at 5 p.m. for transport. Óscar reports that he will call his at 1p.m. on her lunch break et remind her to bring the oxygen. He denies any further needs or concerns at this time. Updated his primary care nurse Ann of the above conversation. She also reports no further anticipated needs for the patient.
[2019-12-06] MEDS: ADVAIR HFA 115/21 MCG INHALER 8 GM IH SCH (10:36)
--- NOTE | 2019-12-06 11:25 | NUR ---
Pastoral care visit.
[2019-12-06 11:29] VITALS: BP 149/90
[2019-12-06] MEDS ORDERED: PRED10TA22 PO (11:38)
[2019-12-06] MEDS ORDERED: LISI-552 PO (11:38)
--- NOTE | 2019-12-06 13:55 | NUR ---
Dr. Santana called this RN and stated that he wanted the pt on a different dose of prednisone to take at home. Dr. Santana stated that he wanted the previous discharge Prednisone DC'd and he would send up someone from his office with new orders. Brigida from Dr. Santana's office visited pt and stated that she would call in the new order for the Prednisone that Dr. Santana wanted pt to take at home. Also, Brigida gave pt a schedule book with Lab draw dates and appt dates written in the book. Pt and in room and stated that they both understood what the new plan was and that they would call if they had any questions.
--- NOTE | 2019-12-06 14:42 | Discharge Summary ---
BROCK NICHOLS,MED STUDENT 12/06/19 1442: Diagnosis/Chief Complaint Date of Admission Nov 26, 2019 at 22:00 Date of Discharge Discharge Date: Dec 06, 2019 Admission Diagnosis 1. Influenza b with worsening bibasilar infiltrates 2. History of interstitial lung disease 3. New-onset thrombocytopenia 4. COPDAE Hospital Course:Patient presents to the ED with a complaint of SOB, he typically wears 3L O2 at home with increase need to 5L. He also had fevers, chills at that time. Multiple past hospitalizations for pneumonia, most recent 10/05-10/14. Other chronic medical conditions include chronic atrial fibrillation with eliquis treatment, CAD with 2 stents, diabetes melitis requiring insulin. Patient was treated with zosyn and tamiflu. He developed ITP with platelets of 4000. At that time eliquis was put on hold. He had refractory epistaxis from both nates which resolved. He was given 2 units of platelets and IVIG. His platelets were 32,000 after and further improved to 93,000 today. He denies further bleeding and improved SOB. Primary Care Usha Wilson Discharge Diagnosis (1) Bilateral pneumonia Status: Acute (2) Chronic respiratory failure with hypoxia, on home O2 therapy Status: Acute (3) COPD exacerbation Status: Acute (4) Chronic atrial fibrillation Status: Chronic (5) Influenza B Status: Acute (6) Acute respiratory distress Status: Acute (7) Thrombocytopenia Status: Acute Discharge Summary Discharge Physical Exam Allergies: Coded Allergies: atorvastatin (Verified Allergy, Mild, 03/26/17) Patient states that his bones ached and he wasn't able to tolerate it. Vitals & I&Os Vital Signs Date Time Temp Pulse Resp B/P (MAP) Pulse Ox O2 Delivery O2 Flow Rate FiO2 12/06/19 12:36 93 12/06/19 11:29 36.1 18 149/90 (109) 96 Nasal Cannula 12/06/19 10:33 3.00 12/05/19 00:55 32 General Appearance: No Apparent Distress, WD/WN HEENT: PERRL/EOMI, Moist Mucous Membranes Respiratory: Chest Non Tender, No Accessory Muscle Use, No Respiratory Distress, Crackles, Decreased Breath Sounds Cardiovascular: Regular Rate, Rhythm, No Murmur Gastrointestinal: Normal Bowel Sounds, Non Tender, Soft; No Distended, No Guarding Skin: Normal Color, Warm/Dry Neurologic/Psychiatric: Alert, Oriented x3, Normal Mood/Affect Hospital Course Labs (last 24 hrs) Laboratory Tests 12/05/19 15:53: Glucometer 279H 12/05/19 20:04: Glucometer 269H 12/06/19 03:25: White Blood Count 11.6H, Red Blood Count 3.62L, Hemoglobin 10.7L, Hematocrit 33L , Mean Corpuscular Volume 92, Mean Corpuscular Hemoglobin 30, Mean Corpuscular Hemoglobin Concent 32, Red Cell Distribution Width 18.7H, Platelet Count 93L, Mean Platelet Volume 10.1, Neutrophils (%) (Auto) 83H, Lymphocytes (%) (Auto) 9L , Monocytes (%) (Auto) 8, Eosinophils (%) (Auto) 0, Basophils (%) (Auto) 0, Neutrophils # (Auto) 9.6H, Lymphocytes # (Auto) 1.1, Monocytes # (Auto) 0.9, Eosinophils # (Auto) 0.0, Basophils # (Auto) 0.0, Sodium Level 136, Potassium Level 3.5L, Chloride Level 103, Carbon Dioxide Level 25, Anion Gap 8, Blood Urea Nitrogen 22H, Creatinine 0.60, Estimat Glomerular Filtration Rate > 60, BUN/Creatinine Ratio 37, Glucose Level 165H, Calcium Level 8.9, Phosphorus Level 2.9, Magnesium Level 1.5L 12/06/19 11:32: Glucometer 160H 12/06/19 11:45: Lab Scanned Report Transfusion Reaction Form Microbiology 11/28/19 Gram Stain - Final, Complete 11/28/19 Sputum Culture - Final, Complete Usual upper respiratory zaid 11/27/19 Blood Culture - Final, Complete No growth 11/26/19 Urine Culture - Final, Complete NO GROWTH Patient resulted labs reviewed. Pending Labs Laboratory Tests 12/06/19 11:32: Glucometer 160 12/06/19 11:45: Lab Scanned Report Transfusion Reaction Form Discussion & Recommendations Patient states he has home oxygen, nebulizer and treatments, and does not need refills on home medications at this time. Continue prednisone taper Discharge Home Medications: Active Scripts Active Lisinopril 20 Mg Tablet 20 Mg PO DAILY Reported Metoprolol Tartrate 25 Mg Tablet 25 Mg PO BID K-Tab ER (Potassium Chloride) 10 Meq Tablet.er 10 Meq PO DAILY Diltiazem 24Hr ER (Diltiazem HCl) 180 Mg Cap.er.24h 180 Mg PO DAILY Furosemide 20 Mg Tablet 20 Mg PO Q48H Fluticasone-Salmeterol 250-50 (Fluticasone Propion/Salmeterol) 1 Each Blst.w.dev 1 Puff INH BID LAST FILLED 05-01-19 Farxiga (Dapagliflozin Propanediol) 5 Mg Tablet 5 Mg PO DAILY Tolterodine Tartrate ER (Tolterodine Tartrate) 4 Mg Cap.er.24h 4 Mg PO DAILY Lantus Solostar (Insulin Glargine,Hum.rec.anlog) 100 Unit/1 Ml Insuln.pen 30 Units SC DAILY Aspirin 81 Mg Tab.chew 81 Mg PO HS Vitamin B-12 (Cyanocobalamin (Vitamin B-12)) 1,000 Mcg Tablet 1,000 Mcg PO DAILY Magox 400 (Magnesium Oxide) 400 Mg Tablet 400 Mg PO DAILY Fenofibrate (Fenofibrate Nanocrystallized) 145 Mg Tablet 145 Mg PO HS LAST FILLED #90 07-14-19 [place] (Exenatide) 10 Mcg/0.04 Ml Pen.injctr 10 Mcg SC BID Ferrous Sulfate 325 Mg Tablet 325 Mg PO HS Rosuvastatin Calcium 20 Mg Tablet 20 Mg PO HS Metformin HCl ER (Metformin HCl) 500 Mg Tab.er.24h 1,000 Mg PO 1800 TAKES 2 (500MG) TABLETS Flomax (Tamsulosin HCl) 0.4 Mg Cap 0.4 Mg PO DAILY LAST FILLED #30 10-13-19 Albuterol Sulfate 2.5 Mg/3 Ml Vial.neb 2.5 Mg IH Q4H PRN Fish Oil 1,000 mg Capsule ([place] 3 Polyunsat Fatty Acids) 1,000 Mg Cap 1,000 Mg PO BID Montelukast Sodium 10 Mg Tablet 10 Mg PO HS Allopurinol 300 Mg Tablet 300 Mg PO BID Fluticasone Propionate 16 Gm Floyd.susp 2 Sprays NS BID PRN Glimepiride 4 Mg Tablet 2 Mg PO DAILY NOT PICKED UP YET TAKES 1/2 (4MG) TABLET Fluoxetine HCl 20 Mg Capsule 40 Mg PO DAILY TAKES 2 (20MG) CAPSULES Omeprazole 20 Mg Capsule.dr 20 Mg PO DAILY Gabapentin 300 Mg Capsule 300 Mg PO BID Instructions to patient/family Please see electronic discharge instructions given to patient. Clinical Quality Measures DVT/VTE Risk/Contraindication: Risk Factor Score Per Nursin RFS Level Per Nursing on Admit: 4+=Very High CHARISSA SOTO DO 12/07/19 0706: Diagnosis/Chief Complaint Discharge Diagnosis (1) Sepsis Status: Acute (2) Thrombocytopenia Status: Acute (3) COPD exacerbation Status: Acute (4) CAD (coronary artery disease) Status: Acute (5) Insulin dependent diabetes mellitus with complications Status: Chronic (6) Influenza B Status: Acute Discharge Summary Discharge Physical Exam Allergies: Coded Allergies: atorvastatin (Verified Allergy, Mild, 03/26/17) Patient states that his bones ached and he wasn't able to tolerate it. General Appearance: No Apparent Distress, WD/WN, Chronically ill Respiratory: No Accessory Muscle Use, No Respiratory Distress, Decreased Breath Sounds Cardiovascular: Regular Rate, Rhythm Hospital Course Was the Problem List Reviewed?: Yes Hospital Course; Pt had an uneventful hospital course for ten days after he was admitted for Influenza B, sepsis, and B/L pneumonia with HTN and COPD exacerbation. He underwent aggressive treatment, had an episode of low platelets that required IVIG due to significant epistaxis. Hematology was appreciated and overall pt recovered although it took ten days and he was able to be discharged in improved condition at home with his . Discussion & Recommendations Discharge Planning: <30 minutes discharge planning Supervisory-Addendum Brief Verification & Attestation Participated in pt care: history, MDM, physical Personally performed: exam, history, MDM, supervision of care Care discussed with: Medical Student Procedures: n/a Results interpretation: Verified all documentation Verification and Attestation of Medical Student E/M Service A medical student performed and documented this service in my presence. I reviewed and verified all information documented by the medical student and made modifications to such information, when appropriate. I personally performed the physical exam and medical decision making. Charissa Soto, Dec 07, 2019,07:06 BROCK NICHOLSMED STUDENT Dec 06, 2019 14:42 CHARISSA SOTO DO Dec 07, 2019 07:06
== END 2019-12-06 14:45 | disposition home or self-care (01) | DRG 871 ==
LOC: EDUNIT# 20:31 → ER 20:32 → ICU 22:00 → 4TH 11-29 09:20 → ICU 12-03 14:06 → CSD 12-05 14:05
PROVIDERS: ADMIT Internal Medicine; ATTEND Internal Medicine
PROC: 093K7ZZ Control Bleeding in Nasal Mucosa and Soft Tissue, Via Natural or Artificial Opening (ICD-10-PCS; principal; 2019-12-03)
DX: A41.9 Sepsis, unspecified organism (principal); J10.08 Influenza due to other identified influenza virus with other specified pneumonia; J15.9 Unspecified bacterial pneumonia; J10.1 Influenza due to other identified influenza virus with other respiratory manifestations; J44.1 Chronic obstructive pulmonary disease with (acute) exacerbation; J96.11 Chronic respiratory failure with hypoxia; D69.3 Immune thrombocytopenic purpura; D61.818 Other pancytopenia; I48.20 Chronic atrial fibrillation, unspecified; J67.0 Farmer's lung; E11.51 Type 2 diabetes mellitus with diabetic peripheral angiopathy without gangrene; R06.03 Acute respiratory distress; I25.10 Atherosclerotic heart disease of native coronary artery without angina pectoris; I10 Essential (primary) hypertension; I27.20 Pulmonary hypertension, unspecified; E83.42 Hypomagnesemia; E87.6 Hypokalemia; J30.2 Other seasonal allergic rhinitis; G47.30 Sleep apnea, unspecified; E78.00 Pure hypercholesterolemia, unspecified; F41.9 Anxiety disorder, unspecified; F32.9 Major depressive disorder, single episode, unspecified; K21.9 Gastro-esophageal reflux disease without esophagitis; M54.9 Dorsalgia, unspecified; M10.9 Gout, unspecified; M19.91 Primary osteoarthritis, unspecified site; R04.0 Epistaxis; Z79.4 Long term (current) use of insulin; Z87.891 Personal history of nicotine dependence; Z79.01 Long term (current) use of anticoagulants
CPT/HCPCS: 36415; 36569; 71045; 76937; 80048; 80053; 80076; 80202; 80306; 80320; 81000; 82728; 82805; 82962; 83540; 83605; 83615; 83735; 83880; 84100; 84484; 85007; 85025; 85027; 85045; 85379; 85384; 85610; 85730; 86022; 86900; 86901; 87040; 87070; 87081; 87088; 87205; 87449; 87804; 87899; 93005; 93041; 94640; 94664; 94760; 96361; 96365; 96372; 96375

== ENCOUNTER → 2019-12-20 | Outpatient (CLI) | payer MEDICARE ==
[~2019-12-20] MED LIST changes: +DILT180C85 PO; +FENO145T26 PO; -FENO145T37 PO; -FLUO20CA45 PO; +FLUO20CA46 PO; +FURO20TA4 PO; -GLIM4TAB3 PO; +GLIM4TAB5 PO; +LISI-552 PO; -MONT10TA24 PO; +MONT10TA26 PO; -OMEP-280 PO; +OMEP20CA18 PO; +POTA10TA PO
== END ==
LOC: CARD 14:00
PROVIDERS: ATTEND Internal Medicine Cardiovascular Disease
DX: I08.1 Rheumatic disorders of both mitral and tricuspid valves (principal); I25.10 Atherosclerotic heart disease of native coronary artery without angina pectoris; J44.9 Chronic obstructive pulmonary disease, unspecified; I65.29 Occlusion and stenosis of unspecified carotid artery; E11.9 Type 2 diabetes mellitus without complications; I10 Essential (primary) hypertension; E78.5 Hyperlipidemia, unspecified; G47.33 Obstructive sleep apnea (adult) (pediatric); I48.0 Paroxysmal atrial fibrillation; I27.21 Secondary pulmonary arterial hypertension
CPT/HCPCS: 93306

== ENCOUNTER 2020-01-05 09:51 | Outpatient (RCR) | payer MEDICARE, OTHER ==
[2019-12-09 10:57] LABS: BASOPHILS % (AUTO) 0 % (0-10); EOSINOPHILS # (AUTO) 0.1 10^3/uL (0.0-0.3); EOSINOPHILS % (AUTO) 1 % (0-10); HEMATOCRIT 40 % (40-54); HEMOGLOBIN 13.7 G/DL (13.3-17.7); LYMPHOCYTES # (AUTO) 1.2 X 10^3 (1.0-4.0); LYMPHOCYTES % (AUTO) 16 % (12-44); MEAN CORPUSCULAR HEMOGLOBIN 34 PG (25-34); MEAN CORPUSCULAR HGB CONC 34 G/DL (32-36); MEAN CORPUSCULAR VOLUME 99 FL (80-99); MEAN PLATELET VOLUME 10.7 FL (7.4-10.4); MONOCYTES # (AUTO) 0.5 X 10^3 (0.0-1.0); MONOCYTES % (AUTO) 7 % (0-12); NEUTROPHILS # (AUTO) 5.5 X 10^3 (1.8-7.8); NEUTROPHILS % (AUTO) 76 % (42-75); PLATELET COUNT 112 10^3/uL (130-400); RED CELL DISTRIBUTION WIDTH 17.8 % (10.0-14.5); WHITE BLOOD COUNT 7.3 10^3/uL (4.3-11.0)
[2019-12-13 13:54] LABS: BASOPHILS % (AUTO) 0 % (0-10); EOSINOPHILS % (AUTO) 0 % (0-10); HEMATOCRIT 36 % (40-54); HEMOGLOBIN 11.1 G/DL (13.3-17.7); LYMPHOCYTES # (AUTO) 0.5 X 10^3 (1.0-4.0); LYMPHOCYTES % (AUTO) 4 % (12-44); MEAN CORPUSCULAR HEMOGLOBIN 29 PG (25-34); MEAN CORPUSCULAR HGB CONC 31 G/DL (32-36); MEAN CORPUSCULAR VOLUME 94 FL (80-99); MONOCYTES # (AUTO) 0.5 X 10^3 (0.0-1.0); MONOCYTES % (AUTO) 4 % (0-12); NEUTROPHILS # (AUTO) 11.8 X 10^3 (1.8-7.8); NEUTROPHILS % (AUTO) 92 % (42-75); WHITE BLOOD COUNT 12.8 10^3/uL (4.3-11.0)
[2019-12-13 14:19] LABS: ALANINE AMINOTRANSFERASE 34 U/L (0-55); ALBUMIN 3.1 GM/DL (3.2-4.5); ALKALINE PHOSPHATASE 66 U/L (40-136); BILIRUBIN,TOTAL 0.4 MG/DL (0.1-1.0); BUN/CREATININE RATIO 29; CALCIUM 10.1 MG/DL (8.5-10.1); CARBON DIOXIDE 28 MMOL/L (21-32); CHLORIDE 101 MMOL/L (98-107); CREATININE SERUM 0.59 MG/DL (0.60-1.30); GFR ESTIMATED > 60; GLUCOSE 222 MG/DL (70-105); SODIUM 137 MMOL/L (135-145); TOTAL PROTEIN 6.9 GM/DL (6.4-8.2)
[2019-12-13 17:02] LABS: PLATELET COUNT 66 10^3/uL (130-400)
[2019-12-20 14:05] LABS: BASOPHILS # (AUTO) 0.1 10^3/uL (0.0-0.1); BASOPHILS % (AUTO) 1 % (0-10); EOSINOPHILS % (AUTO) 0 % (0-10); HEMATOCRIT 39 % (40-54); HEMOGLOBIN 12.3 G/DL (13.3-17.7); LYMPHOCYTES # (AUTO) 0.5 X 10^3 (1.0-4.0); LYMPHOCYTES % (AUTO) 3 % (12-44); MEAN CORPUSCULAR HEMOGLOBIN 29 PG (25-34); MEAN CORPUSCULAR HGB CONC 31 G/DL (32-36); MEAN CORPUSCULAR VOLUME 93 FL (80-99); MEAN PLATELET VOLUME 10.8 FL (7.4-10.4); MONOCYTES # (AUTO) 0.2 X 10^3 (0.0-1.0); MONOCYTES % (AUTO) 1 % (0-12); NEUTROPHILS # (AUTO) 15.5 X 10^3 (1.8-7.8); NEUTROPHILS % (AUTO) 95 % (42-75); PLATELET COUNT 92 10^3/uL (130-400); RED CELL DISTRIBUTION WIDTH 18.6 % (10.0-14.5); WHITE BLOOD COUNT 16.3 10^3/uL (4.3-11.0)
[2019-12-27 08:56] LABS: BASOPHILS # (AUTO) 0.2 10^3/uL (0.0-0.1); BASOPHILS % (AUTO) 1 % (0-10); EOSINOPHILS # (AUTO) 0.1 10^3/uL (0.0-0.3); EOSINOPHILS % (AUTO) 1 % (0-10); HEMATOCRIT 39 % (40-54); HEMOGLOBIN 12.3 G/DL (13.3-17.7); LYMPHOCYTES # (AUTO) 1.2 X 10^3 (1.0-4.0); LYMPHOCYTES % (AUTO) 8 % (12-44); MEAN CORPUSCULAR HEMOGLOBIN 30 PG (25-34); MEAN CORPUSCULAR HGB CONC 31 G/DL (32-36); MEAN CORPUSCULAR VOLUME 95 FL (80-99); MEAN PLATELET VOLUME 10.3 FL (7.4-10.4); MONOCYTES # (AUTO) 0.8 X 10^3 (0.0-1.0); MONOCYTES % (AUTO) 5 % (0-12); NEUTROPHILS # (AUTO) 12.9 X 10^3 (1.8-7.8); NEUTROPHILS % (AUTO) 86 % (42-75); PLATELET COUNT 91 10^3/uL (130-400); WHITE BLOOD COUNT 15.1 10^3/uL (4.3-11.0)
[2019-12-27 09:16] LABS: ALANINE AMINOTRANSFERASE 33 U/L (0-55); ALBUMIN 3.2 GM/DL (3.2-4.5); ALKALINE PHOSPHATASE 61 U/L (40-136); BILIRUBIN,TOTAL 0.4 MG/DL (0.1-1.0); BUN/CREATININE RATIO 34; CALCIUM 9.4 MG/DL (8.5-10.1); CARBON DIOXIDE 27 MMOL/L (21-32); CHLORIDE 100 MMOL/L (98-107); CREATININE SERUM 0.71 MG/DL (0.60-1.30); GFR ESTIMATED > 60; GLUCOSE 310 MG/DL (70-105); POTASSIUM 4.2 MMOL/L (3.6-5.0); SODIUM 135 MMOL/L (135-145); TOTAL PROTEIN 5.8 GM/DL (6.4-8.2)
[2019-12-30 09:34] LABS: BASOPHILS # (AUTO) 0.1 10^3/uL (0.0-0.1); BASOPHILS % (AUTO) 1 % (0-10); EOSINOPHILS % (AUTO) 0 % (0-10); HEMATOCRIT 38 % (40-54); HEMOGLOBIN 11.6 G/DL (13.3-17.7); LYMPHOCYTES # (AUTO) 0.6 X 10^3 (1.0-4.0); LYMPHOCYTES % (AUTO) 5 % (12-44); MEAN CORPUSCULAR HEMOGLOBIN 30 PG (25-34); MEAN CORPUSCULAR HGB CONC 31 G/DL (32-36); MEAN CORPUSCULAR VOLUME 97 FL (80-99); MEAN PLATELET VOLUME 10.5 FL (7.4-10.4); MONOCYTES # (AUTO) 0.7 X 10^3 (0.0-1.0); MONOCYTES % (AUTO) 5 % (0-12); NEUTROPHILS # (AUTO) 11.5 X 10^3 (1.8-7.8); NEUTROPHILS % (AUTO) 89 % (42-75); PLATELET COUNT 72 10^3/uL (130-400); RED CELL DISTRIBUTION WIDTH 18.5 % (10.0-14.5); WHITE BLOOD COUNT 12.9 10^3/uL (4.3-11.0)
[~2020-01-05] VITALS: Ht 167.6 cm; Wt 77.1 kg
[~2020-01-05 09:51] MED LIST changes: +ACETAMINOPHEN 325 MG TAB (TYLENOL) CANCER CTR ONE; +ACETAMINOPHEN 500 MG TAB (TYLENOL) CANCER CTR PO PRN; +NS IV 1000 ML (CANCER CTR) IV SCH; +diphenhydrAMINE 25 MG TAB (BENADRYL) CANCER CENTER PO SCH; +diphenhydrAMINE 50 MG/ML INJ (CANCER CENTER) IV PRN; +diphenhydrAMINE 50 MG/ML INJ (CANCER CENTER) ONE; +riTUXimab 500 MG, riTUXimab FOR IV INJ CONC 200 MG in NS (IVPB) CANCER CENTER ONLY 150 ML IV SCH
[2020-01-05 10:12] LABS: BASOPHILS # (AUTO) 0.1 10^3/uL (0.0-0.1); BASOPHILS % (AUTO) 1 % (0-10); EOSINOPHILS # (AUTO) 0.1 10^3/uL (0.0-0.3); EOSINOPHILS % (AUTO) 1 % (0-10); HEMATOCRIT 40 % (40-54); HEMOGLOBIN 12.6 G/DL (13.3-17.7); LYMPHOCYTES # (AUTO) 0.6 X 10^3 (1.0-4.0); LYMPHOCYTES % (AUTO) 5 % (12-44); MEAN CORPUSCULAR HEMOGLOBIN 30 PG (25-34); MEAN CORPUSCULAR HGB CONC 31 G/DL (32-36); MEAN CORPUSCULAR VOLUME 97 FL (80-99); MEAN PLATELET VOLUME 10.8 FL (7.4-10.4); MONOCYTES # (AUTO) 0.4 X 10^3 (0.0-1.0); MONOCYTES % (AUTO) 4 % (0-12); NEUTROPHILS # (AUTO) 9.5 X 10^3 (1.8-7.8); NEUTROPHILS % (AUTO) 89 % (42-75); PLATELET COUNT 96 10^3/uL (130-400); RED CELL DISTRIBUTION WIDTH 18.9 % (10.0-14.5); WHITE BLOOD COUNT 10.7 10^3/uL (4.3-11.0)
== END 2020-03-08 | disposition home or self-care (01) ==
LOC: ONC 09:51
PROVIDERS: ATTEND Internal Medicine Hematology & Oncology
DX: D69.6 Thrombocytopenia, unspecified (principal)
CPT/HCPCS: 36415; 80053; 85025; 96413; 96415; 99213; J9312